=== PATIENT | male | born 1940 | race Caucasian/White ===

== ENCOUNTER 2016-10-30 22:13 | Emergency (ER) | payer MEDICARE ==
[2016-10-30] MEDS ORDERED: KETOROLAC 60 MG/2 ML VIAL IVP STA (22:32)
[2016-10-30] MEDS ORDERED: HYDROmorphone 1 MG/ML 1 ML SYRINGE IVP STA (22:33)
[2016-10-30] MEDS ORDERED: ONDANSETRON 4 MG/2 ML VIAL IVP STA (22:33)
--- NOTE | 2016-10-30 22:36 | ED ---
General Adult HPI - General Chief complaint: Abdominal Pain Stated complaint: Lower Abdominal Pain Time Seen by Provider: 10/30/16 22:20 Source: patient, RN notes reviewed Mode of arrival: wheelchair Limitations: no limitations - History of Present Illness Initial comments: This is a 76-year-old male presents to the emergency department complaining of left lower quadrant abdominal pain that started 2 hours ago. Patient states started suddenly. Patient states prior to that he was feeling fine. Patient states she was a little bit nauseous when it first started but he no longer is nauseated. Patient did not vomit. Patient has not had any diarrhea. Patient denies any radiation of the pain to his back or testicles. Patient denies any chest pain difficulty breathing or shortness of breath. Patient denies any recent fever or chills. Patient denies any dysuria hematuria urinary frequency. Patient denies any headache patient denies numbness weakness. - Related Data Home Medications Medication Instructions Recorded Confirmed Aspirin EC [Ecotrin Low Dose] 81 mg PO DAILY 10/30/16 10/30/16 Atorvastatin [Lipitor] 40 mg PO DAILY 10/30/16 10/30/16 Biotin 5 mg PO DAILY 10/30/16 10/30/16 Cholecalciferol [Vitamin D3] 400 unit PO DAILY 10/30/16 10/30/16 Fish Oil/Dha/Epa [Fish Oil 1,200 1 cap PO DAILY 10/30/16 10/30/16 mg Fish Oil] Isosorbide Mononitrate ER [Imdur] 60 mg PO DAILY 10/30/16 10/30/16 Metoprolol Succinate (ER) [Toprol 50 mg PO DAILY 10/30/16 10/30/16 Xl] Niacinamide [Niacin] 1,000 mg PO HS 10/30/16 10/30/16 Nitroglycerin Sl Tabs [Nitrostat] 0.4 mg SUBLINGUAL Q5M PRN 10/30/16 10/30/16 Omeprazole 20 mg PO DAILY 10/30/16 10/30/16 Previous Rx's Medication Instructions Recorded Hydrocodone/Acetaminophen [[place] 1 each PO Q4HR PRN #20 tab 10/30/16 5-325] Ketorolac [Toradol] 10 mg PO Q6HR #15 tab 10/30/16 Tamsulosin [Flomax] 0.4 mg PO DAILY #10 cap 10/31/16 Allergies Allergy/AdvReac Type Severity Reaction Status Date / Time No Known Allergies Allergy Verified 10/30/16 22:47 Review of Systems ROS Statement: Those systems with pertinent positive or pertinent negative responses have been documented in the HPI. ROS Other: All systems not noted in ROS Statement are negative. Past Medical History Past Medical History: Hyperlipidemia, Hypertension Additional Past Medical History / Comment(s): cardiac stents, AAA History of Any Multi-Drug Resistant Organisms: None Reported Past Surgical History: Heart Catheterization With Stent, Tonsillectomy Past Psychological History: No Psychological Hx Reported Smoking Status: Never smoker Past Alcohol Use History: None Reported Past Drug Use History: None Reported General Exam - General Exam Comments Initial Comments: GENERAL: Patient is well-developed and well-nourished. Patient is nontoxic and well- hydrated and is in moderate distress. ENT: Neck is soft and supple. No significant lymphadenopathy is noted. Oropharynx is clear. Moist mucous membranes. Neck has full range of motion without eliciting any pain. EYES: The sclera were anicteric and conjunctiva were pink and moist. Extraocular movements were intact and pupils were equal round and reactive to light. Eyelids were unremarkable. PULMONARY: Unlabored respirations. Good breath sounds bilaterally. No audible rales rhonchi or wheezing was noted. CARDIOVASCULAR: There is a regular rate and rhythm without any murmurs gallops or rubs. ABDOMEN: Mild left lower quadrant tenderness. No palpable organomegaly was noted. There is no palpable pulsatile mass. SKIN: Skin is clear with no lesions or rashes and otherwise unremarkable. NEUROLOGIC: Patient is alert and oriented x3. Cranial nerves II through XII are grossly intact. Motor and sensory are also intact. Normal speech, volume and content. Symmetrical smile. MUSCULOSKELETAL: Normal extremities with adequate strength and full range of motion. No lower extremity swelling or edema. No calf tenderness. LYMPHATICS: No significant lymphadenopathy is noted PSYCHIATRIC: Normal psychiatric evaluation. Limitations: no limitations Course Vital Signs 10/30/16 10/30/16 10/30/16 22:29 22:45 23:29 Temperature 97.1 F L 97.5 F L Pulse Rate 68 72 72 Respiratory 20 18 18 Rate Blood Pressure 202/79 159/72 131/59 O2 Sat by Pulse 96 93 L 93 L Oximetry Medical Decision Making - Medical Decision Making Computed tomography scan shows a 5 mm stone in the left proximal ureter. There is some hydronephrosis as well as hydroureter. - Lab Data Result diagrams: 10/30/16 22:40 10/30/16 22:40 Lab Results 10/30/16 10/30/16 10/30/16 Range/Units 22:40 22:40 23:30 WBC 5.5 (3.8-10.6) k/uL RBC 4.54 (4.30-5.90) m/uL Hgb 14.7 (13.0-17.5) gm/dL Hct 41.8 (39.0-53.0) % MCV 91.9 (80.0-100.0) fL MCH 32.4 (25.0-35.0) pg MCHC 35.2 (31.0-37.0) g/dL RDW 13.8 (11.5-15.5) % Plt Count 153 (150-450) k/uL Neutrophils % 47 % Lymphocytes % 38 % Monocytes % 6 % Eosinophils % 5 % Basophils % 1 % Neutrophils # 2.6 (1.3-7.7) k/uL Lymphocytes # 2.1 (1.0-4.8) k/uL Monocytes # 0.3 (0-1.0) k/uL Eosinophils # 0.3 (0-0.7) k/uL Basophils # 0.1 (0-0.2) k/uL Sodium 138 (137-145) mmol/L Potassium 3.8 (3.5-5.1) mmol/L Chloride 105 (98-107) mmol/L Carbon Dioxide 22 (22-30) mmol/L Anion Gap 11 mmol/L BUN 14 (9-20) mg/dL Creatinine 0.88 (0.66-1.25) mg/dL Est GFR (MDRD) Af Amer >60 (>60 ml/min/1.73 sqM) Est GFR (MDRD) Non-Af >60 (>60 ml/min/1.73 sqM) Glucose 155 H (74-99) mg/dL Calcium 9.4 (8.4-10.2) mg/dL Total Bilirubin 0.6 (0.2-1.3) mg/dL AST 51 (17-59) U/L ALT 55 (21-72) U/L Alkaline Phosphatase 64 (38-126) U/L Total Protein 7.6 (6.3-8.2) g/dL Albumin 4.0 (3.5-5.0) g/dL Amylase 60 (30-110) U/L Lipase 134 (23-300) U/L Urine Color Yellow Urine Appearance Clear (Clear) Urine pH 5.5 (5.0-8.0) Ur Specific Boon 1.019 (1.001-1.035) Urine Protein Negative (Negative) Urine Glucose (UA) Negative (Negative) Urine Ketones Negative (Negative) Urine Blood Large H (Negative) Urine Nitrite Negative (Negative) Urine Bilirubin Negative (Negative) Urine Urobilinogen 4.0 (<2.0) mg/dL Ur Leukocyte Esterase Negative (Negative) Urine RBC 143 H (0-5) /hpf Urine WBC 1 (0-5) /hpf Ur Squamous Epith Cells <1 (0-4) /hpf Urine Mucus Occasional H (None) /hpf Disposition Clinical Impression: Kidney stone Disposition: HOME SELF-CARE Condition: Good Instructions: Kidney Stones (ED) Additional Instructions: Patient should follow-up with urology. Prescriptions: Hydrocodone/Acetaminophen [[place] 5-325] 1 each PO Q4HR PRN #20 tab PRN Reason: Pain Ketorolac [Toradol] 10 mg PO Q6HR #15 tab Tamsulosin [Flomax] 0.4 mg PO DAILY #10 cap Referrals: Oswald Ashraf MD [Primary Care Provider] - 1-2 days Time of Disposition: 23:57
[2016-10-30 22:46] VITALS: PULSE 72; RESP 18
[2016-10-30 22:53] LABS: Basophils # (A) 0.1 k/uL (0-0.2); Basophils % (A) 1 %; CH 32.4; CHCM 35.4; Eosinophils # (A) 0.3 k/uL (0-0.7); Eosinophils % (A) 5 %; HCT 41.8 % (39.0-53.0); HDW 2.82; HGB 14.7 gm/dL (13.0-17.5); Luc # (Auto) 0.16; Luc % (Auto) 3; Lymphocytes # (A) 2.1 k/uL (1.0-4.8); Lymphocytes % (A) 38 %; MCH 32.4 pg (25.0-35.0); MCHC 35.2 g/dL (31.0-37.0); MCV 91.9 fL (80.0-100.0); Mean Platelet Volume 6.7; Monocytes # (A) 0.3 k/uL (0-1.0); Monocytes % (A) 6 %; Neutrophils # (A) 2.6 k/uL (1.3-7.7); Neutrophils % (A) 47 %; RBC 4.54 m/uL (4.30-5.90); RDW 13.8 % (11.5-15.5); WBC 5.5 k/uL (3.8-10.6); WBC (Perox) 5.76
--- NOTE | 2016-10-30 23:16 | CT ---
EXAMINATION TYPE: CT abdomen pelvis wo con DATE OF EXAM: 10/30/2016 11:00 PM COMPARISON: NONE HISTORY: left lower abd pain, r/o stones CT DLP: 1177 mGycm Automated exposure control for dose reduction was used. TECHNIQUE: Helical acquisition of images was performed from the lung bases through the pelvis. FINDINGS: There is patchy atelectasis at the lung bases. There is no definite pleural effusion. The liver shows no focal defect. Spleen and pancreas appear normal. Gallbladder shows multiple calcif ied gallstones near the gallbladder neck. Bile ducts are not dilated. There is no adrenal mass. Kidne ys have normal size. There is mild left-sided hydronephrosis and hydroureter. There is a 5 mm calculu s at the left ureterovesical junction. Bladder distends smoothly. There are multiple sigmoid divertic rohan. There is no sign of diverticulitis. There is atherosclerotic vascular calcification. There is a 4 cm fusiform aneurysm of the lower abdominal aorta. I see no intestinal wall thickening. There is no ascites. There is no retroperitoneal adenopathy. I see no bony destructive process. There are multip le right-sided renal calcifications that could be vascular.. IMPRESSION: THERE IS A SMALL CALCULUS OBSTRUCTING THE LEFT UPPER COLLECTING SYSTEM AT THE LEFT URETEROVESICAL BETTY CTION. CALCIFIED GALLSTONES. ARTHROSCOPIC VASCULAR CALCIFICATION. 4 CM ANEURYSM OF THE LOWER ABDOMINAL AORTA . SIGMOID DIVERTICULOSIS WITHOUT DIVERTICULITIS. PATCHY ATELECTASIS AT THE LUNG BASES.
--- NOTE | 2016-10-30 23:17 | XR ---
EXAMINATION TYPE: XR KUB DATE OF EXAM: 10/30/2016 11:00 PM COMPARISON: NONE HISTORY: Abdominal pain TECHNIQUE: 2 views FINDINGS: There is no sign of intestinal obstruction or pneumoperitoneum. Fecal pattern is normal. Th ere is patchy interstitial density at the lung bases. There are no pathologic calcifications over the kidneys. There is no sign of a mass. IMPRESSION: Nonacute abdomen. Fibrotic changes at the lung bases.
[2016-10-30 23:30] VITALS: BP 131/59; TEMP 97.5
[2016-10-30 23:30] LABS: ALT 55 U/L (21-72); AST 51 U/L (17-59); Alkaline Phosphatase 64 U/L (38-126); Amylase 60 U/L (30-110); Anion Gap 11 mmol/L; Blood Urea Nitrogen 14 mg/dL (9-20); Calcium 9.4 mg/dL (8.4-10.2); Carbon Dioxide 22 mmol/L (22-30); Chloride 105 mmol/L (98-107); Glucose 155 mg/dL (74-99); Non-African American GFR(MDRD) >60 (>60 ml/min/1.73 sqM); Potassium 3.8 mmol/L (3.5-5.1); Sodium 138 mmol/L (137-145); Total Bilirubin 0.6 mg/dL (0.2-1.3); Total Protein 7.6 g/dL (6.3-8.2)
[2016-10-30 23:44] LABS: Appearance,Urine Clear (Clear); Bilirubin,Urine Negative (Negative); Glucose,Urine (UA) Negative (Negative); Ketones,Urine Negative (Negative); Leukocyte Esterase,Urine Negative (Negative); Mucus,Urine Occasional /hpf; Nitrite,Urine Negative (Negative); PH, Urine 5.5 (5.0-8.0); Particle Count 4580; Protein,Urine Negative (Negative); RBC,Urine 143 /hpf (0-5); Specific Gravity,Urine 1.019 (1.001-1.035); Squamous Epithelial Cell,Urine <1 /hpf (0-4); UA Billing (MACRO vs. MICRO) MICRO; WBC,Urine 1 /hpf (0-5)
[2016-10-31] MEDS ORDERED: ETODOLAC 400 MG TAB PO STA (00:02)
[2016-10-31] MEDS ORDERED: HYDROcodone/APAP 5-325MG 1 EACH TAB PO STA (00:03)
== END 2016-10-31 00:10 | disposition home or self-care (01) ==
LOC: EC 22:13
DX: N20.0 Calculus of kidney (principal); R11.0 Nausea; I10 Essential (primary) hypertension; E78.5 Hyperlipidemia, unspecified; Z79.82 Long term (current) use of aspirin; Z79.899 Other long term (current) drug therapy
CPT/HCPCS: 99284; 96374; 96375 ×2; 36415; 80053; 82150; 83690; 85025; 81001; 74000; 74176; J2405; J1885; J1170

== ENCOUNTER → 2016-11-12 | Outpatient (CLI) | payer MEDICARE ==
--- NOTE | 2016-11-12 09:04 | US ---
EXAMINATION TYPE: US duplex aorta DATE OF EXAM: 11/12/2016 8:46 AM COMPARISON: CLINICAL HISTORY: Coronary Artery Disease I65.29, AAA I71.4. Known Distal AAA EXAM MEASUREMENTS: Limited visualization of proximal and mid Aorta. Abdominal Aorta: Proximal: 2.2 x 2.7 cm Mid: 1.5 x 2.1 cm Distal: 3.5 x 3.8 x 6.4 cm Bifurcation: Right- 1.2 x 0.9 cm Left- 1.2 x 1.0 cm Distal AAA = 3.5 x 3.8 x 6.4 cm IMPRESSION: 1. 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
== END | disposition home or self-care (01) ==
LOC: RADUSWWP 08:13
PROVIDERS: ATTEND Family Medicine
DX: I71.4 Abdominal aortic aneurysm, without rupture (principal); I74.09 Other arterial embolism and thrombosis of abdominal aorta; I25.10 Atherosclerotic heart disease of native coronary artery without angina pectoris
CPT/HCPCS: 93979

== ENCOUNTER → 2016-12-10 | Outpatient (CLI) | payer MEDICARE ==
--- NOTE | 2016-12-10 12:30 | ECHOS ---
DATE OF SERVICE: 12/10/2016 AGE: 76Y SEX: M HT: 72" WT: 255 lbs. Protocol Ricardo: X Others: Stress Echo Stage: 2 Dur. of Exercise: 5:15 *Heart Rate Blood Pressure *Rest: 76 Rest: 145/45 * *Max. Achieved: 123 Maximum BP: 186/55 85% PMHR: 124 100% PMHR: 146 *METS: INDICATIONS: Coronary artery disease. MEDICATIONS: Metoprolol, aspirin, isosorbide, atorvastatin, levothyroxine, Niacin, Nitro. STRESS DATA: Pretesting physical examination showed the heart rate of 76, pressure is 145/45 mmHg. Baseline EKG showed sinus rhythm. The patient exercised on the treadmill according to Ricardo protocol for a total of 5 minutes. He achieved a max heart rate of 123, which is about 84% of maximum predicted heart rate. Maximum blood pressure was 186/55 mmHg. Clinically, the patient did not have any symptoms of chest pain or discomfort during the testing or in the recovery. The EKG did not show any significant ST or T-wave abnormalities consistent with ischemia. ECHOCARDIOGRAM IMAGES: On echocardiogram images from parasternal long axis view, parasternal short axis view, apical 4 chambers and apical 2 chamber view were obtained as the baseline images, ( ) heart rate, as well as on recovery. The echocardiogram images showed good augmentation in the left ventricular systolic function without any evidence of wall motion abnormalities consistent with ischemia. CONCLUSION: 1. Average exercise capacity. 2. Normal EKG in response to exercise. 3. Normal echocardiogram in response to exercise as well. 4. Essentially normal stress echocardiogram for this patient.
== END | disposition home or self-care (01) ==
LOC: RADNMMAIN 09:04
PROVIDERS: ATTEND Family Medicine
DX: I65.29 Occlusion and stenosis of unspecified carotid artery (principal); I71.4 Abdominal aortic aneurysm, without rupture
CPT/HCPCS: 93017; C8928; Q9957; 93350

== ENCOUNTER 2017-11-29 11:26 | Day surgery (SDC) | payer MEDICARE ==
[2017-11-25 13:19] VITALS: BMI 35.9
[~2017-11-29 11:26] MED LIST: LACTATED RINGERS 1,000 ML IV SCH; LIDOCAINE 1% 20 ML VIAL (10MG/ML) FOR IV START INTRADERMA PRN
[2017-11-29 12:34] VITALS: TEMP 98.1
[2017-11-29] MEDS ORDERED: LIDOCAINE 1% INJ 10MG/ML (20 ML MDV) ONE (13:22)
[2017-11-29] MEDS ORDERED: PROPOFOL 10 MG/ML 20 ML VIAL IV ONE (13:22)
[2017-11-29] MEDS ORDERED: IV FLUID CONTINUATION 1,000 ML IV ONE (13:50)
--- NOTE | 2017-11-29 13:57 | P.PCN ---
Date of Procedure: 11/29/17 Procedure(s) Performed: Procedure: Colonoscopy and biopsy and injection of Spot to localize a broadly attached distal sigmoid polyp. Preoperative diagnosis: Positive cologuard. Postoperative diagnosis: 1. Broadly advanced distal sigmoid polyp biopsy and spotted using spot injection. 2. Diffuse diverticulosis with no evidence of acute diverticulitis or strictures. Preparation: HalfLytely prep. Sedation: Was provided by anesthesia. Brief clinical history: The patient is a 77-year-old male who is scheduled for this of examination because of positive cologuard. The patient has no abdominal complaints, overt bleeding or anemia. His prior colonoscopy was more than 11 years ago. Procedure: With the patient on his left lateral decubitus position and after informed consent and adequate sedation, the perianal area was inspected and it did not show any fissures or fistulas. There were no masses felt on digital rectal examination. The Olympus CFQ 160L video colonoscope was then inserted in the rectum in the usual fashion and advanced to the cecum. There was a broadly at times polyp in the distal sigmoid that measured around 4 cm in greatest dimension that was biopsied. A total of 2 mL of spot was injected to localize it. No attempt was made today to snare it because of its size and broad attachment. There were multiple diverticular orifices noted mostly on the left side with several on the right side that were fewer and smaller in size. There was no evidence of acute diverticulitis or strictures. No other polyps or tumors were seen. I retroflexed the endoscope in the rectum before the endoscope was withdrawn. The patient tolerated the procedure well. Plan: I summarized the findings to the patient. Will await biopsy results and make further recommendations based on his course and biopsy results. We will keep you updated on his progress.
[2017-11-29 14:10] VITALS: BP 122/78; PULSE 68; RESP 18
== END 2017-11-29 14:35 | disposition home or self-care (01) ==
LOC: ORWHC2ENDO 11:26
DX: D12.5 Benign neoplasm of sigmoid colon (principal); K57.30 Diverticulosis of large intestine without perforation or abscess without bleeding; I10 Essential (primary) hypertension; E78.5 Hyperlipidemia, unspecified; I25.10 Atherosclerotic heart disease of native coronary artery without angina pectoris; E07.9 Disorder of thyroid, unspecified; Z79.82 Long term (current) use of aspirin; I71.4 Abdominal aortic aneurysm, without rupture; Z79.899 Other long term (current) drug therapy; Z87.442 Personal history of urinary calculi
CPT/HCPCS: 88305; 45380; 45381; J2001; J2704

== ENCOUNTER → 2017-12-24 | Outpatient (CLI) | payer MEDICARE ==
[2017-12-24 14:00] LABS: Appearance,Urine Clear (Clear); Bilirubin,Urine Negative (Negative); Blood,Urine Negative (Negative); Color,Urine Yellow; Glucose,Urine (UA) Negative (Negative); Ketones,Urine Negative (Negative); Leukocyte Esterase,Urine Negative (Negative); Nitrite,Urine Negative (Negative); Protein,Urine Trace (Negative); Specific Gravity,Urine 1.022 (1.001-1.035)
[2017-12-24 14:01] LABS: HCT 40.1 % (39.0-53.0); HGB 13.9 gm/dL (13.0-17.5); MCH 31.3 pg (25.0-35.0); MCHC 34.6 g/dL (31.0-37.0); MCV 90.5 fL (80.0-100.0); Mean Platelet Volume 7.1; Platelet Count 179 k/uL (150-450); RBC 4.43 m/uL (4.30-5.90); RDW 13.6 % (11.5-15.5); WBC 5.4 k/uL (3.8-10.6)
[2017-12-24 14:10] LABS: Partial Thromboplastin Time 23.8 sec (22.0-30.0); Prothrombin Time 9.9 sec (9.0-12.0)
[2017-12-24 14:13] LABS: ALT 43 U/L (21-72); AST 29 U/L (17-59); Alkaline Phosphatase 61 U/L (38-126); Anion Gap 10 mmol/L; Blood Urea Nitrogen 15 mg/dL (9-20); Carbon Dioxide 28 mmol/L (22-30); Chloride 107 mmol/L (98-107); Glucose 74 mg/dL (74-99); Potassium 4.3 mmol/L (3.5-5.1); Sodium 145 mmol/L (137-145); Total Bilirubin 0.4 mg/dL (0.2-1.3); Total Protein 6.9 g/dL (6.3-8.2)
== END | disposition home or self-care (01) ==
LOC: LABPAT 13:29
PROVIDERS: ATTEND Orthopaedic Surgery Sports Medicine
DX: Z01.812 Encounter for preprocedural laboratory examination (principal)
CPT/HCPCS: 36415; 80053; 81003; 85027; 85610; 85730; 87070

== ENCOUNTER 2018-01-13 09:19 | Inpatient (IN) | payer MEDICARE ==
[2017-12-30 15:25] VITALS: BMI 36.9
[~2018-01-13 09:19] MED LIST changes: +ACETAMINOPHEN TAB 500 MG TAB PO ONE; +DEXAMETHASONE SOD PHOSPHATE 10 MG/ML 1 ML VIAL IV ONE; +HYDROmorphone 0.5 MG/0.5 ML SYRINGE IVP PRN; -LIDOCAINE 1% 20 ML VIAL (10MG/ML) FOR IV START INTRADERMA PRN; +ONDANSETRON 4 MG/2 ML VIAL IVP ONE; +ROPIVACAINE 246.25 MG, EPINEPHrine 0.5 MG, KETOROLAC 30 MG, cloNIDine HCL/PF 80 MCG, WA... MISCELLANE ONE; +TRANEXAMIC ACID 1,000 MG in SODIUM CHLORIDE 0.9% 50 ML IVPB ONE
[2018-01-13] MEDS ORDERED: LIDOCAINE 1% 20 ML VIAL (10MG/ML) FOR IV START INTRADERMA ONE (09:59)
[2018-01-13] MEDS ORDERED: SODIUM CHLORIDE 0.9% 100 ML BAG ONE (11:19)
[2018-01-13] MEDS ORDERED: diphenhydrAMINE 50 MG/ML 1 ML VIAL ONE (11:19)
[2018-01-13] MEDS ORDERED: TRANEXAMIC ACID 1,000 MG/10 ML VIAL ONE (11:19)
[2018-01-13] MEDS ORDERED: fentaNYL (PF) 50 MCG/ML 2 ML AMP ONE (11:19)
[2018-01-13] MEDS ORDERED: KETAMINE 10 MG/ML 20 ML VIAL ONE (11:19)
[2018-01-13] MEDS ORDERED: PROPOFOL 10 MG/ML 20 ML VIAL IV ONE (11:19)
[2018-01-13] MEDS ORDERED: ePHEDrine SULFATE/0.9% NACL/PF 50 MG/5 ML SYRINGE IV ONE (11:19)
[2018-01-13] MEDS ORDERED: MIDAZOLAM 2 MG/2 ML VIAL ONE (11:19)
[2018-01-13] MEDS ORDERED: HYDROmorphone 0.5 MG/0.5 ML SYRINGE IVP PRN ×4 (11:44→13:44)
[2018-01-13] MEDS ORDERED: diphenhydrAMINE 50 MG/ML 1 ML VIAL IVP PRN (11:44)
[2018-01-13] MEDS ORDERED: NALOXONE 0.4 MG/ML 1 ML VIAL IV PRN ×2 (11:44→13:44)
[2018-01-13] MEDS ORDERED: NALBUPHINE 10 MG/ML VIAL (10ML MDV) IV PRN (11:44)
[2018-01-13] MEDS ORDERED: ceFAZolin 3,000 MG in SODIUM CHLORIDE 0.9% IRRIGATIO 3,000 ML IRRIGATION ONE (12:00)
[2018-01-13] MEDS ORDERED: MAGNESIUM HYDROXIDE 2,400 MG/10 ML CUP PO PRN (13:44)
[2018-01-13] MEDS ORDERED: ACETAMINOPHEN TAB 325 MG TAB PO PRN (13:44)
[2018-01-13] MEDS ORDERED: NA PHOS,M-B/NA PHOS,DI-BA 133 ML ENEMA RECTAL PRN (13:44)
[2018-01-13] MEDS ORDERED: DIAZEPAM 5 MG TAB PO PRN (13:44)
[2018-01-13] MEDS ORDERED: traMADol 50 MG TAB PO PRN (13:44)
[2018-01-13] MEDS ORDERED: hydrOXYzine PAMOATE 25 MG CAP PO PRN (13:44)
[2018-01-13] MEDS ORDERED: HYDROcodone/APAP 7.5-325MG 1 EACH TAB PO PRN ×2 (13:44)
[2018-01-13] MEDS ORDERED: TEMAZEPAM 15 MG CAP PO PRN (13:44)
[2018-01-13] MEDS ORDERED: BISACODYL 10 MG SUPP RECTAL PRN (13:44)
[2018-01-13] MEDS ORDERED: ONDANSETRON 4 MG/2 ML VIAL IVP PRN (13:44)
[2018-01-13] MEDS: LACTATED RINGERS 1,000 ML IV SCH ×3 (14:05→23:21)
--- NOTE | 2018-01-13 14:08 | XR ---
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 TECHNIQUE: Portable AP and crosstable lateral views of the left knee are obtained immediately postop eratively. COMPARISON: None FINDINGS: Metallic hardware from total left knee arthroplasty is seen and appears satisfactory in al ignment and position. There is evidence of recent surgery with diffuse subcutaneous gas and soft tis agueda swelling noted. IMPRESSION: METALLIC HARDWARE FROM TOTAL LEFT KNEE ARTHROPLASTY IS SATISFACTORY IN ALIGNMENT.
--- NOTE | 2018-01-13 14:41 | OP ---
OPERATIVE REPORT DATE OF PROCEDURE: 01/13/2018. SURGEON: García Laboy MD. SCRUM COACH: PARKER Storey. PREOPERATIVE DIAGNOSIS: Left knee osteoarthrosis. POSTOPERATIVE DIAGNOSIS: Left knee osteoarthrosis. OPERATION: Left total knee arthroplasty. ANESTHESIA: Spinal with sedation. ESTIMATED BLOOD LOSS: 100 mL. TOURNIQUET TIME: 60 minutes at 250 mmHg. COMPLICATIONS: None apparent. DRAINS: None. DISPOSITION: Postanesthesia care unit. INDICATIONS: Teto is a 77-year-old male with longstanding history of left knee pain. History and physical examination are consist with advanced left knee osteoarthrosis. He has been through significant nonoperative management up to this point. Further treatment options were discussed and he has decided to go forward with a left total knee arthroplasty. The risks of the procedure were discussed with him in detail. These risks include, but are not limited to risk of infection, nerve damage, bleeding, pain and risk of deep vein thrombosis which could lead to fatal pulmonary embolism. There is also risk of loosening of the implant which could require revision operation. The patient understands these risks. All of his questions with regards to the risks were answered to his satisfaction. Appropriate informed consent was obtained. The patient identified in preoperative holding area. Surgical site was marked by both the patient and myself. He was given 3 g of Ancef IV for prophylactic purposes. He was then transferred to the operative suite, where he was placed supine on the operative table. Spinal anesthetic was then administered and dosed per the anesthesia without apparent complication. Examination under anesthesia was then performed. The patient was 5 degrees shy of full extension. He had 100 degrees of flexion in the medial collateral ligament. Lateral collateral ligament and posterior cruciate ligaments were stable. Tourniquet was then placed high on the left upper thigh well-padded in preparation for surgery. The patient's left lower extremity was then prepped and draped in usual sterile fashion. Standard surgical pause undertaken to ensure that we were operating the correct site and that appropriate preoperative antibiotics were given. All staff in the room in agreement and we proceeded. The outlines of the patella were marked surgical pen. A planned 12 cm vertical incision centered over the patella was marked surgical pen. Leg was then exsanguinated with an Esmarch dressing. The knee was then flexed and tourniquet was inflated to 250 mmHg. The total tourniquet time for the procedure was 60 minutes. Incision was then made with a 10 blade scalpel. Dissection carried down sharply to the overlying fascia. Great care was taken to minimize the skin flaps. The knee was then exposed using a standard medial parapatellar approach. A small cuff of quadriceps tendon was then left for suturing. He was in a bit of valgus preoperatively. A very minimal medial release was then made. This was done just to allow for placement of the retractors. The medial meniscus was then excised as well. The lateral meniscus was also released anteriorly. The leg was then externally rotated. The patella was everted and the knee was flexed. The retractors then placed to protect the collateral ligaments. I then proceeded to remove the infrapatellar fat pad. This was excised sharply tangentially with with fibers of the patellar tendon. I then proceeded to remove peripheral osteophytes. This was done with a rongeur. I then proceeded with the distal femoral resection. He did he did have a flexion contracture. Plan to take an extra 2 mm from the distal femur. The femoral canal was then entered in the midline of the femur approximately 10 mm anterior to the origin of the posterior cruciate ligament. The levon was then advanced down the center of the femur and placed intramedullary. Based on preoperative radiographs, the angle between the anatomic and mechanical axis of the femur was approximately 4-5 degrees. The valgus angle distal femoral cutting guide was then set at 4 degrees for the left knee. The distal femoral cutting guide was then advanced over the intramedullary levon. This was seated firmly against the femur. I then as mentioned planned to take the left 11 mm off the distal femur. The cutting block was then secured onto the femur with pins. The jig was then removed. The distal femoral cut was made through the slot of the block. The pins then removed. The distal femoral cutting block was removed. The accuracy of the distal femoral cuts was checked with 2 flat bars. I then proceed with femoral sizing. The posterior referencing sizing guide was held firmly against the resected distal surface of the femur. Posterior condyles were resting on the posterior plane of the guide. The sizing stylus was then placed onto the anterior femur. The size was measured as a size 10. I then assessed for femoral rotation. Plan was for 3 degrees of external rotation. Three degrees of external rotation was placed onto the jig. These holes were then marked. I then confirmed the rotation by three separate methods. This is done using epicondylar axis as well as Whitesides line and posterior referencing. It was deemed that the external rotation was proper. I then went forward placing the femoral cutting block. This was placed over the previously placed pin holes. The Dale wing was then placed on the anterior slots to ensure that we would not notch the anterior femur with the anterior femoral cut. I then proceed with the anterior femoral cut. This was flush with the anterior cortex of the femur. Posterior cuts were then made followed by the anterior chamfer cut, then the posterior chamfer cut. The cutting block was then removed. Throughout the resection, the collateral ligaments were protected with retractors. I then placed a trial size 10 femur. It fit very nice medial-lateral and fit flush with the distal end of the femur. The drill holes were then made. I then proceeded with the tibial cut. I planned for cruciate retaining knee. The guide was placed and set for varus valgus and for slope. The height was set for approximate 2 mm resection from the lateral tibial plateau which was the lower side. I was happy with the alignment amount of resection. The cutting block was then pinned to the proximal tibia. The alignment levon was removed. The proximal tibia was resected with a reciprocating saw. Again this was done with retractors protecting the collateral ligaments as well as the posterior cruciate ligament. I then proceeded to evaluate the flexion extension gaps where a 10 mm block was then placed. The flexion-extension gaps were equal. I then proceeded with resection of posterior osteophytes. Very minimal posterior osteophytes. This was done with a curved osteotome. This resected the posterior osteophytes and posterior capsule stripping was also done off the posterior aspect of the femur. The osteophytes were removed. I then proceeded with resection of patella. The thickness of patella was measured using the caliper. The thickness was 25 mm. The thickness of the anticipated patellar dome was then taken into account. Resection was then performed and confirmed to be equal in 4 quadrants using a caliper. Approximately 14 mm of bone remained after the resection. A 35 x 9 mm standard patellar trial was then placed. The holes were drilled. The trial was then placed. I then proceeded with sizing the tibial plate. A size G tibial plate fit very nicely. I then placed the trial femur the tibial tray and patellar button. A 10 mm trial tibial insert was also placed. The components fit very nicely. He had full extension and flexion. The extension and flexion gaps were equal and stable to both varus and valgus stress. The patella tracked appropriately. The tibial tray rotation was marked with a Bovie. This was externally rotated properly. I then proceed with tibial preparation. I first drilled the femoral holes and removed femoral component. The tibial tray was then set for proper external rotation as well as mediolateral placement onto the tibia. It was then pinned into place. I then proceed with punching the keel. I then decided to proceed with cementing of all of our components. The knee was thoroughly irrigated with sterile saline solution via pulse lavage. The lateral geniculate artery was identified and cauterized. All blood was removed from the bone of the tibia femur and patella with pulse lavage. I then proceed with cementing. Two packs of antibiotic bone cement prepared on the back table by the regional vice president surgical sales. I then proceed with cementing the tibia first. The cement was impacted in the keel as well as deeply seated in the bone. A second coat of cement was then placed. The tibia was then impacted into place. Excess cement was removed with Tino's and Joker's. I then proceed with cementing the femoral component. The femoral component was also cemented using standard technique. Excess cement was removed. A 10 mm trial insert was placed into the knee. It was brought into full extension with a constant axial load placed until the cement had hardened. The patellar component was then cemented. This was held firmly with a compressive device until the cement had dried. When the cement had dried, the knee was taken out of extension. All excess cement was removed from around the prosthesis. I then trialed the knee with a 10 mm insert. The flexion-extension gaps were appropriate. The knee was stable. It came into full extension. I decided to go for the 10 mm cross-linked cruciate-retaining tibial insert. Polyethylene was then placed on the tibial tray and locked into place. The knee was then reduced. The knee was again further irrigated with sterile saline solution with antibiotic added. The tourniquet was then deflated. Total tourniquet time for the procedure was 60 minutes at 250 mmHg. Final components were Edu Persona size 10 cruciate-retaining femoral component, a size G tibial tray, a 10 mm medial congruent cruciate-retaining polyethylene insert and a 35 x 9 mm patella. I then proceeded with closure. Again, the knee was thoroughly irrigated. The quadriceps tendon and the medial retinaculum were reapproximated with #2 Ethibond suture. The extensor mechanism was then closed with a running #2 Quill suture. Subcutaneous tissues were then closed with 2-0 Vicryl interrupted suture. The skin was closed with a running 3-0 Quill suture. Dermabond was applied to the incision. Sterile compressive dressings were then applied. All sponge and needle counts were deemed correct prior to closure. The patient tolerated the procedure without apparent complication. He is transferred recovery room in stable condition. MMODL / IJN: [id number] /
[2018-01-13] MEDS ORDERED: WARFARIN 5 MG TAB PO ONE (18:00)
[2018-01-13] MEDS ORDERED: SENNOSIDES-DOCUSATE SODIUM 1 EACH TAB PO SCH (21:00)
[2018-01-13] MEDS ORDERED: NITROGLYCERIN SL TABS 0.4 MG TAB SUBLINGUAL PRN (22:11)
--- NOTE | 2018-01-13 22:13 | P.CONS ---
History of Present Illness - Reason for Consult Consult date: 01/13/18 Medical management of hypertension and other medical problems - Chief Complaint Elective left total knee arthroplasty - History of Present Illness Patient is a 77-year-old male with a known history of coronary artery disease and history of stents 6, hypertension, hyperlipidemia and hypothyroidism and also history of abdominal aortic aneurysm and is being closely followed was admitted to the hospital for left total knee arthroplasty. Patient was also getting intra-articular steroid injections and failed conservative measures. Patient tolerated the procedure very well. Currently patient is still drowsy from anesthesia. Otherwise is able to answer appropriately. No complaints of chest pain or shortness of breath. No headache or dizziness or lightheadedness. No fever no chills. Review of Systems Constitutional: Patient denies any fever or chills . No generalized weakness or weight loss. Abdomen: Patient denied nausea vomiting and diarrhea and abdominal pain. Cardiovascular: Patient denies any chest pain or short of breath no palpitations. Respiratory: patient denied any cough is from production. No shortness of breath Neurologic: Patient denied any numbness or tingling headache. Musculoskeletal: Patient denies any complaints of joint swelling or deformity. Skin: Negative Psychiatric: Negative Endocrine: No heat or cold intolerance. No recent weight gain. Genitourinary: No dysuria or hematuria. All other 14 point ROS negative except the above Past Medical History Past Medical History: Coronary Artery Disease (CAD), Hyperlipidemia, Hypertension, Thyroid Disorder Additional Past Medical History / Comment(s): positive cologaurd, cardiac stents , AAA (states Dr is watching), hx kidney stones History of Any Multi-Drug Resistant Organisms: None Reported Past Surgical History: Heart Catheterization With Stent, Tonsillectomy Additional Past Surgical History / Comment(s): 6 stents, charity cataracts Past Anesthesia/Blood Transfusion Reactions: No Reported Reaction Date of Last Stent Placement:: unknown Smoking Status: Never smoker - Past Family History Mother Family Medical History: No Reported History Medications and Allergies Home Medications Medication Instructions Recorded Confirmed Type Aspirin EC [Ecotrin Low Dose] 81 mg PO HS 10/30/16 01/13/18 History Atorvastatin [Lipitor] 40 mg PO DAILY 10/30/16 01/13/18 History Cholecalciferol [Vitamin D3] 2,000 unit PO DAILY 10/30/16 01/13/18 History Fish Oil/Dha/Epa [Fish Oil 1,200 1 cap PO DAILY 10/30/16 01/13/18 History mg Fish Oil] Isosorbide Mononitrate ER [Imdur] 60 mg PO QAM 10/30/16 01/13/18 History Metoprolol Succinate (ER) [Toprol 50 mg PO QAM 10/30/16 01/13/18 History Xl] Nitroglycerin Sl Tabs [Nitrostat] 0.4 mg SUBLINGUAL Q5M PRN 10/30/16 01/13/18 History Omeprazole 20 mg PO HS 10/30/16 01/13/18 History Niacin (Inositol Niacinate) [No 1,000 mg PO HS 11/25/17 01/13/18 History Flush Niacin 400 mg Cap] Levothyroxine Sodium [Synthroid] 50 mcg PO DAILY 01/13/18 01/13/18 History Warfarin [Coumadin] 3 mg PO ONCE 01/13/18 01/13/18 History Allergies Allergy/AdvReac Type Severity Reaction Status Date / Time No Known Allergies Allergy Verified 01/13/18 14:04 Physical Exam Vitals: Vital Signs Temp Pulse Resp BP Pulse Ox 01/13/18 14:31 70 16 131/63 95 01/13/18 14:15 73 16 129/64 94 L 01/13/18 14:02 74 16 129/64 95 01/13/18 13:46 97.0 F L 71 18 118/57 94 L 01/13/18 09:55 98 F 63 16 197/92 96 Intake and Output 01/12/18 01/13/18 01/13/18 22:59 06:59 14:59 Intake Total 1101 Output Total 100 Balance 1001 Intake: IV 1101 Output: Estimated Blood Loss 100 PHYSICAL EXAMINATION: Patient is lying in the bed comfortably, no acute distress, awake alert and oriented.. HEENT: Normocephalic. Neck is supple. Pupils reactive. Nostrils clear. Oral cavity is moist. Ears reveal no drainage. Neck reveals no JVD, carotid bruits, or thyromegaly. CHEST EXAMINATION: Trachea is central. Symmetrical expansion. Bibasilar diminished air entry. Lung wright clear to auscultation and percussion. CARDIAC: Normal S1, S2 with no gallops. No murmurs ABDOMEN: Soft. Bowel sounds normal. No organomegaly. No abdominal bruits. Extremities: reveal no edema. No clubbing or cyanosis Neurologically awake, alert, oriented x3 with well-coordinated movements. No focal deficits noted Skin: No rash or skin lesions. Psychiatric: Cooperative. Nonsuicidal Musculoskeletal: No joint swelling or deformity. Left knee surgical site intact.. Assessment and Plan Assessment: Status post left total knee arthroplasty on 01/13/2018 due to severe ostioarthritis Hypertension controlled Hyperlipidemia Hypothyroidism Coronary artery disease with history of stents 6 Abdominal aortic aneurysm. On close follow-up History of renal stones Morbid obesity with BMI 37 DVT prophylaxis Plan: Patient will be continued on pain management and bowel regimen. Encourage incentive spirometry and ambulation. DVT prophylaxis. Continue with home medications and restart blood pressure medications as tolerated. follow up CBC and BMP tomorrow a.m. We'll continue to follow and further recommendations based on the clinical course. Thank you for your consult Time with Patient: Greater than 30
[2018-01-14] MEDS ORDERED: CALCIUM CARBONATE 500 MG CHEWABLE PO PRN (00:37)
[2018-01-14] MEDS ORDERED: LEVOTHYROXINE 50 MCG TAB PO SCH (06:30)
[2018-01-14 06:42] LABS: Basophils % (A) 0 %; Eosinophils % (A) 0 %; HCT 37.1 % (39.0-53.0); HGB 12.7 gm/dL (13.0-17.5); Lymphocytes # (A) 1.1 k/uL (1.0-4.8); Lymphocytes % (A) 11 %; MCH 31.3 pg (25.0-35.0); MCHC 34.3 g/dL (31.0-37.0); MCV 91.2 fL (80.0-100.0); Mean Platelet Volume 6.7; Monocytes # (A) 0.8 k/uL (0-1.0); Monocytes % (A) 8 %; Neutrophils % (A) 79 %; Platelet Count 181 k/uL (150-450); RBC 4.07 m/uL (4.30-5.90); RDW 13.6 % (11.5-15.5); WBC 10.1 k/uL (3.8-10.6)
--- NOTE | 2018-01-14 08:24 | P.PN ---
Progress Note - Text Date: 01/14/2018 Time: 07:07 The patient is status post, total left knee arthroplasty Vital signs stable VAS: 0-10 Patient has no complaints of pain. The patient had no complaints of nausea vomiting or headache. Pain meds to be managed by service.
[2018-01-14] MEDS ORDERED: ATORVASTATIN 40 MG TAB PO SCH (09:00)
[2018-01-14] MEDS ORDERED: NON-FORMULARY DRUG (Fish Oil/Dha/Epa [Fish Oil 1,200 Mg Fish Oil] 1 CAP) PO SCH (09:00)
[2018-01-14] MEDS ORDERED: METOPROLOL SUCCINATE (ER) 50 MG TAB.ER.24H PO SCH (09:00)
[2018-01-14] MEDS ORDERED: ISOSORBIDE MONONITRATE ER 60 MG TAB.ER.24H PO SCH (09:00)
[2018-01-14] MEDS ORDERED: CHOLECALCIFEROL 1,000 UNIT TAB PO SCH (09:00)
[2018-01-14 09:34] LABS: INR 1.2 (<1.2); Prothrombin Time 11.2 sec (9.0-12.0)
[2018-01-14 10:21] VITALS: BP 142/75; PULSE 77; RESP 16; TEMP 98.1
[2018-01-14] MEDS: LACTATED RINGERS 1,000 ML IV SCH (10:41)
[2018-01-14] MEDS ORDERED: MULTIVITAMINS, THERA 1 EACH TAB PO SCH (12:00)
--- NOTE | 2018-01-14 12:20 | P.DS ---
Providers Date of admission: 01/13/18 09:19 Expected date of discharge: 01/14/18 Attending physician: García Laboy Consults: 01/13/18 13:44 Consult Physician Routine Consulting Provider: Oswald Ashraf Consult Reason/Comments: post op medical management Do you want consulting provider notified?: Yes Primary care physician: Oswald Ashraf - Discharge Diagnosis(es) (1) Osteoarthritis of left knee Patient was admitted to the OR on 01/13/2018 to undergo a left total Knee arthroplasty. Her had failed conservative measures as an outpatient and desired to proceed with elective surgery after given informed consent. He underwent the above procedure which he tolerated well without complication. Postoperative hospital course has remained without complication. On day of discharge he is afebrile, vital signs stable, labs within acceptable ranges, tolerating by mouth meds and diet, voiding without difficulty, positive flatus, denies abdominal pain or calf pain, pain is controlled on oral pain medication and has no new complaints. Wound is benign, neurovascular status is intact, calf is soft and nontender, abdomen soft and nontender. Review of systems is negative for numbness, tingling, fever, chills, chest pain, shortness breath, nausea, vomiting, dizziness, headaches, slurred speech or other. Current Visit: Yes Status: Acute Priority: Medium Procedures: Left TKA Patient Condition at Discharge: Good Plan - Discharge Summary Discharge Rx Participant: No New Discharge Prescriptions: New Docusate [Colace] 100 mg PO BID #60 capsule HYDROcodone/APAP 7.5-325MG [Sidon 7.5-325] 1 - 2 tab PO Q6HR PRN #60 tab PRN Reason: Pain No Action Omeprazole 20 mg PO HS Nitroglycerin Sl Tabs [Nitrostat] 0.4 mg SUBLINGUAL Q5M PRN PRN Reason: Chest Pain Metoprolol Succinate (ER) [Toprol Xl] 50 mg PO QAM Isosorbide Mononitrate ER [Imdur] 60 mg PO QAM Fish Oil/Dha/Epa [Fish Oil 1,200 mg Fish Oil] 1 cap PO DAILY Cholecalciferol [Vitamin D3] 2,000 unit PO DAILY Atorvastatin [Lipitor] 40 mg PO DAILY Aspirin EC [Ecotrin Low Dose] 81 mg PO HS Niacin (Inositol Niacinate) [No Flush Niacin 400 mg Cap] 1,000 mg PO HS Levothyroxine Sodium [Synthroid] 50 mcg PO DAILY Warfarin [Coumadin] 3 mg PO ONCE Discharge Medication List Aspirin EC [Ecotrin Low Dose] 81 mg PO HS 10/30/16 [History] Atorvastatin [Lipitor] 40 mg PO DAILY 10/30/16 [History] Cholecalciferol [Vitamin D3] 2,000 unit PO DAILY 10/30/16 [History] Fish Oil/Dha/Epa [Fish Oil 1,200 mg Fish Oil] 1 cap PO DAILY 10/30/16 [History] Isosorbide Mononitrate ER [Imdur] 60 mg PO QAM 10/30/16 [History] Metoprolol Succinate (ER) [Toprol Xl] 50 mg PO QAM 10/30/16 [History] Nitroglycerin Sl Tabs [Nitrostat] 0.4 mg SUBLINGUAL Q5M PRN 10/30/16 [History] Omeprazole 20 mg PO HS 10/30/16 [History] Niacin (Inositol Niacinate) [No Flush Niacin 400 mg Cap] 1,000 mg PO HS [History] Levothyroxine Sodium [Synthroid] 50 mcg PO DAILY 01/13/18 [History] Warfarin [Coumadin] 3 mg PO ONCE 01/13/18 [History] Docusate [Colace] 100 mg PO BID #60 capsule 01/14/18 [Rx] HYDROcodone/APAP 7.5-325MG [Sidon 7.5-325] 1 - 2 tab PO Q6HR PRN #60 tab [Rx] Follow up Appointment(s)/Referral(s): [facility], [NON-STAFF] - García Laboy MD [STAFF PHYSICIAN] - 01/24/18 1:00 pm Ambulatory/Diagnostic Orders: Prothrombin Time INR [LAB.AMB] Location: None Selected Activity/Diet/Wound Care/Special Instructions: [facility] - [phone] - will deliver to bedside before discharge keep wound clean and dry take meds as directed f/u with Dr. Laboy in office Weight Bear As Tolerated may shower in 3 days if no bleeding Discharge Disposition: HOME WITH HOME HEALTH SERVICES
[2018-01-14] MEDS ORDERED: WARFARIN 5 MG TAB PO ONE (18:00)
[2018-01-14] MEDS ORDERED: NIACIN TR 500 MG CAPSULE.ER PO SCH (21:00)
[2018-01-14] MEDS ORDERED: PANTOPRAZOLE 40 MG TABLET PO SCH (21:00)
--- NOTE | 2018-01-14 23:04 | P.PN ---
Subjective Progress Note Date: 01/14/18 Principal diagnosis: Left total knee arthroplasty in Patient is a 77-year-old male with a known history of coronary artery disease and history of stents 6, hypertension, hyperlipidemia and hypothyroidism and also history of abdominal aortic aneurysm and is being closely followed was admitted to the hospital for left total knee arthroplasty. Patient was also getting intra-articular steroid injections and failed conservative measures. Patient tolerated the procedure very well. Currently patient is still drowsy from anesthesia. Otherwise is able to answer appropriately. No complaints of chest pain or shortness of breath. No headache or dizziness or lightheadedness. No fever no chills. 01/14/2018 Patient denied any complaints of chest pain or shortness of breath. Left knee pain is controlled. No nausea vomiting or abdominal pain. No acute overnight issues. All other review of systems negative except the above Current medications reviewed Objective - Vital Signs Vital signs: Vital Signs Temp 98.1 F 01/14/18 10:20 Pulse 77 01/14/18 10:33 Resp 16 01/14/18 10:33 BP 142/75 01/14/18 10:20 Pulse Ox 91 L 01/14/18 10:33 Intake & Output 01/13/18 01/14/18 01/14/18 18:59 06:59 18:59 Intake Total 1651 800 440 Output Total 100 750 700 Balance 1551 50 -260 Weight 120.202 kg Intake: IV 1101 Oral 550 800 440 Output: Urine 750 700 Straight 750 Estimated Blood Loss 100 - Exam PHYSICAL EXAMINATION: Patient is lying in the bed comfortably, no acute distress, awake alert and oriented.. HEENT: Normocephalic. Neck is supple. Pupils reactive. Nostrils clear. Oral cavity is moist. Ears reveal no drainage. Neck reveals no JVD, carotid bruits, or thyromegaly. CHEST EXAMINATION: Trachea is central. Symmetrical expansion. Lung wright clear to auscultation and percussion. CARDIAC: Normal S1, S2 with no gallops. No murmurs ABDOMEN: Soft. Bowel sounds normal. No organomegaly. No abdominal bruits. Extremities: reveal no edema. No clubbing or cyanosis Neurologically awake, alert, oriented x3 with well-coordinated movements. No focal deficits noted Skin: No rash or skin lesions. Psychiatric: Coperative. Nonsuicidal Musculoskeletal: No joint swelling or deformity. Normal range of motion. Left knee surgical site intact - Labs CBC & Chem 7: 01/14/18 06:21 Labs: Abnormal Lab Results - Last 24 Hours (Table) 01/14/1818 Range/Units 06:21 06:21 RBC 4.07 L (4.30-5.90) m/uL Hgb 12.7 L (13.0-17.5) gm/dL Hct 37.1 L (39.0-53.0) % Neutrophils # 8.0 H (1.3-7.7) k/uL INR 1.2 H (<1.2) Assessment and Plan Assessment: Status post left total knee arthroplasty on 01/13/2018 due to severe ostioarthritis Hypertension controlled Hyperlipidemia Hypothyroidism Coronary artery disease with history of stents 6 Abdominal aortic aneurysm. On close follow-up History of renal stones Morbid obesity with BMI 37 DVT prophylaxis Plan: Patient will be continued on pain management and bowel regimen. Encourage incentive spirometry and ambulation. DVT prophylaxis. Continue with home medications and restart blood pressure medications as tolerated. Patient is being discharged home today. Recommended to follow with PCP no 1-3 days. Thank you for your consult Time with Patient: Greater than 30
== END 2018-01-14 15:54 | disposition home health service (06) | DRG 470 ==
LOC: 2ORMAIN 09:19 → 3SUR 13:34
PROVIDERS: ADMIT Orthopaedic Surgery Sports Medicine; ATTEND Orthopaedic Surgery Sports Medicine
PROC: 0SRD0J9 Replacement of Left Knee Joint with Synthetic Substitute, Cemented, Open Approach (ICD-10-PCS; principal; 2018-01-13 11:00)
DX: M17.12 Unilateral primary osteoarthritis, left knee (principal); E03.9 Hypothyroidism, unspecified; E78.5 Hyperlipidemia, unspecified; I10 Essential (primary) hypertension; I25.10 Atherosclerotic heart disease of native coronary artery without angina pectoris; Z79.01 Long term (current) use of anticoagulants; Z79.899 Other long term (current) drug therapy; Z86.79 Personal history of other diseases of the circulatory system; Z87.442 Personal history of urinary calculi; Z95.5 Presence of coronary angioplasty implant and graft; Z79.82 Long term (current) use of aspirin; Z83.3 Family history of diabetes mellitus; Z87.891 Personal history of nicotine dependence; Z68.37 Body mass index [BMI] 37.0-37.9, adult; E66.01 Morbid (severe) obesity due to excess calories; Z79.890 Hormone replacement therapy
CPT/HCPCS: 85025; 85610; 88300

== ENCOUNTER → 2019-02-27 | Outpatient (CLI) | payer MEDICARE ==
--- NOTE | 2019-02-27 13:13 | US ---
EXAMINATION TYPE: US duplex aorta DATE OF EXAM: 02/27/2019 COMPARISON: Ultrasound 02/27/[address] 10/30/2016 CLINICAL HISTORY: 78-year-old male I74.1 abdominal aortic aneurysm without rupture. TECHNIQUE: Multiple sonographic images of the abdominal aorta are obtained. FINDINGS: EXAM MEASUREMENTS: Abdominal Aorta: Proximal: 2.4 x 2.0 cm Mid: 2.3 x 2.2 cm Distal: 4.1 x 4.6 cm (previously measured at 3.8 x 3.5 cm). (Measures 4.6 x 4.[address] of 2016) Bifurcation: right, 1.9 x 1.8 cm left, 2.0 x 2.1 cm (right and left previously measured at 1.2 cm each). (On CT of 10/30/2016, these measured up to 1.6 and 1.8 cm on the right and left, respectivel y). Home Staging Specialist notes: Distal AAA. IMPRESSION: 1. Distal AAA measurements were underestimated on the patient's 11/12/2016 ultrasound. Current measurem ents are 4.6 x 4.1 cm which is relatively stable as compared to the CT of 10/30/2016. 2. Right and left common iliac arteries are measured at 1.9 and 2.1 cm, respectively. They were also underestimated on the prior ultrasound at 1.2 cm. On the patient's 2017 CT, they measured 1.6 and 1.8 cm, respectively. Some increase in size is not excluded.
== END | disposition home or self-care (01) ==
LOC: RADUSWWP 08:09
PROVIDERS: ATTEND Family Medicine
DX: I71.4 Abdominal aortic aneurysm, without rupture (principal)
CPT/HCPCS: 93979

== ENCOUNTER → 2019-12-29 | Outpatient (CLI) | payer MEDICARE ==
[2019-12-29 14:17] LABS: HGB 14.7 gm/dL (13.0-17.5); MCH 31.3 pg (25.0-35.0); MCHC 33.4 g/dL (31.0-37.0); MCV 93.7 fL (80.0-100.0); Mean Platelet Volume 6.9; Platelet Count 191 k/uL (150-450); RDW 13.5 % (11.5-15.5); WBC 6.3 k/uL (3.8-10.6)
[2019-12-29 14:24] LABS: Partial Thromboplastin Time 23.9 sec (22.0-30.0); Prothrombin Time 10.1 sec (9.0-12.0)
[2019-12-29 14:38] LABS: Appearance,Urine Clear (Clear); Bilirubin,Urine Negative (Negative); Blood,Urine Negative (Negative); Color,Urine Yellow; Glucose,Urine (UA) Negative (Negative); Ketones,Urine Negative (Negative); Leukocyte Esterase,Urine Negative (Negative); Nitrite,Urine Negative (Negative); PH, Urine 5.5 (5.0-8.0); Protein,Urine Negative (Negative); Specific Gravity,Urine 1.013 (1.001-1.035); Urobilinogen,Urine <2.0 mg/dL (<2.0)
[2019-12-29 15:12] LABS: ALT 35 U/L (4-49); AST 44 U/L (17-59); African American GFR (CKD) >90 (>60 ml/min/1.73 sqM); Albumin 3.9 g/dL (3.5-5.0); Alkaline Phosphatase 62 U/L (38-126); Anion Gap 9 mmol/L; Blood Urea Nitrogen 18 mg/dL (9-20); Calcium 9.1 mg/dL (8.4-10.2); Carbon Dioxide 21 mmol/L (22-30); Chloride 109 mmol/L (98-107); Glucose 115 mg/dL (74-99); Non-African American GFR(CKD) >90 (>60 ml/min/1.73 sqM); Potassium 4.6 mmol/L (3.5-5.1); Sodium 139 mmol/L (137-145); Total Bilirubin 0.6 mg/dL (0.2-1.3); Total Protein 7.5 g/dL (6.3-8.2)
== END | disposition home or self-care (01) ==
LOC: LABPAT 13:46
PROVIDERS: ATTEND Orthopaedic Surgery Sports Medicine
DX: Z01.818 Encounter for other preprocedural examination (principal); Z01.812 Encounter for preprocedural laboratory examination; Z79.01 Long term (current) use of anticoagulants
CPT/HCPCS: 36415; 80053; 81003; 85027; 85610; 85730; 87070

== ENCOUNTER 2020-01-03 13:05 | Day surgery (SDC) | payer MEDICARE ==
[2019-12-29 15:58] VITALS: BMI 37.1
[~2020-01-03 13:05] MED LIST changes: +BISACODYL 10 MG SUPP RECTAL PRN; +DIAZEPAM 5 MG TAB PO PRN; +GABAPENTIN 300 MG CAP PO ONE; +HYDROcodone/APAP 5-325MG 1 EACH TAB PO PRN; -LACTATED RINGERS 1,000 ML IV SCH; +MAGNESIUM HYDROXIDE 2,400 MG/10 ML CUP PO PRN; +MELOXICAM 7.5 MG TAB PO ONE; +NA PHOS,M-B/NA PHOS,DI-BA 133 ML ENEMA RECTAL PRN; +NALOXONE 0.4 MG/ML 1 ML VIAL IV PRN; +ONDANSETRON 4 MG/2 ML VIAL IVP PRN; -ROPIVACAINE 246.25 MG, EPINEPHrine 0.5 MG, KETOROLAC 30 MG, cloNIDine HCL/PF 80 MCG, WA... MISCELLANE ONE; +TRANEXAMIC ACID 1,000 MG in SODIUM CHLORIDE 0.9% 100 ML IVPB ONE; -TRANEXAMIC ACID 1,000 MG in SODIUM CHLORIDE 0.9% 50 ML IVPB ONE; +ceFAZolin 3 GM in SODIUM CHLORIDE 0.9% 100 ML IVPB ONE; +hydrOXYzine PAMOATE 25 MG CAP PO PRN
[2020-01-03] MEDS ORDERED: ONDANSETRON 4 MG/2 ML VIAL ONE (14:11)
[2020-01-03] MEDS ORDERED: ACETAMINOPHEN TAB 500 MG TAB ONE (14:11)
[2020-01-03] MEDS: LACTATED RINGERS 1,000 ML IV SCH (14:21)
[2020-01-03] MEDS ORDERED: fentaNYL (PF) 50 MCG/ML 2 ML AMP IVP ONE ×2 (15:26→15:30)
[2020-01-03] MEDS: MIDAZOLAM 2 MG/2 ML VIAL IV PRN ×2 (15:26→15:30)
--- NOTE | 2020-01-03 15:34 | P.CRDCN ---
History of Present Illness History of present illness: HISTORY OF PRESENTING ILLNESS This is a pleasant 79-year-old male past medical history significant for coronary artery disease status post PCI to the circumflex artery over 10 years ago, hypertension and dyslipidemia. He follows in the office with Dr. Reed. We have been asked to see in consultation for PVCs. The patient came in for elective right knee replacement with Dr. Laboy. He saw Dr. Reed earlier this month for preoperative evaluation and given an acceptable risk to undergo surgery and anesthesia. However PVCs were noted on the monitor prompting an EKG to be obtained. EKG revealed sinus mechanism with PVCs. Monitor telemetry tracings were reviewed and revealed intermittent unifocal PVCs. Patient was seen and examined sitting up in bed in no acute distress. He has no symptoms of chest pain, shortness of breath, dizziness or palpitations. He had baseline labs drawn prior to arrival. WBC 6.3, hemoglobin 14.7, platelets 191, sodium 139, potassium 4.6 and creatinine 0.62. Current daily cardiac medications include Toprol 50 mg in the morning, Imdur 60 mg daily, atorvastatin 40 mg daily and aspirin 81 mg daily. 6 aspirin has been on hold for 5 days. He states he took his Toprol this morning before coming in for his procedure. Most recent stress test was a Lexiscan stress test in 2018 that was negative for reversible cardiac ischemia. Most recent echocardiogram obtained in December 2017 revealed preserved LV systolic function with ejection fraction 60%. REVIEW OF SYSTEMS At the time of my exam: CONSTITUTIONAL: Denies fever or chills. CARDIOVASCULAR: Denies chest pain, shortness of breath, orthopnea, PND or palpitations. RESPIRATORY: Denies cough. GASTROINTESTINAL: Denies abdominal pain, diarrhea, constipation, nausea or vomiting. MUSCULOSKELETAL: Denies myalgias. NEUROLOGIC: Denies numbness, tingling or weakness. ENDOCRINE: Denies fatigue, weight change, polydipsia or polyurina. GENITOURINARY: Denies burning, hematuria or urgency with micturation. HEMATOLOGIC: Denies history of anemia or bleeding. PHYSICAL EXAMINATION Blood pressure 161/87 heart rate 69 afebrile and maintaining oxygen saturation on room air. CONSTITUTIONAL: No apparent distress. HEENT: Head is normocephalic. Pupils are equal, round. Sclerae anicteric. Mucous membranes of the mouth are moist. No JVD. No carotid bruit. CHEST EXAMINATION: Lungs are clear to auscultation. No chest wall tenderness is noted on palpation or with deep breathing. HEART EXAMINATION: Regular rate and rhythm. S1, S2 heard. No murmurs, gallops or rub. ABDOMEN: Soft, nontender. Positive bowel sounds. EXTREMITIES: 2+ peripheral pulses, no lower extremity edema and no calf tende rness. NEUROLOGIC EXAMINATION: Patient is awake, alert and oriented x3. ASSESSMENT Premature ventricular contractions Right knee pain and swelling scheduled to undergo right knee replacement Coronary artery disease status post PCI to the circumflex artery Hypertension Dyslipidemia Obesity, BMI 38 PLAN PVCs noted on telemetry tracings. There are infrequent and the patient is asymptomatic. There is no evidence of nonsustained percent stained ventricular tachycardia. There is no arrhythmia noted. The patient did take his Toprol this morning. He is currently stable to proceed with the planned surgical intervention of the right knee. This was discussed with Dr. Robertson and plan of care agreed upon. Discussed with Dr. Agarwal Thank you kindly for this consultation. Nurse Practitioner note has been reviewed, I agree with a documented findings and plan of care. Patient was seen and examined. Past Medical History Past Medical History: Coronary Artery Disease (CAD), Hyperlipidemia, Hypertension, Thyroid Disorder Additional Past Medical History / Comment(s): cardiac stents, AAA (states Dr is watching), hx kidney stones, hx of polyps History of Any Multi-Drug Resistant Organisms: None Reported Past Surgical History: Heart Catheterization With Stent, Joint Replacement, Tonsillectomy Additional Past Surgical History / Comment(s): left knee 2018, 6 stents, charity cataracts Past Anesthesia/Blood Transfusion Reactions: No Reported Reaction Date of Last Stent Placement:: 2002? Smoking Status: Former smoker - Past Family History Mother Family Medical History: No Reported History Medications and Allergies Home Medications Medication Instructions Recorded Confirmed Type Aspirin EC [Ecotrin Low Dose] 81 mg PO HS 10/30/16 12/29/19 History Atorvastatin [Lipitor] 40 mg PO DAILY 10/30/16 12/29/19 History Cholecalciferol [Vitamin D3] 2,000 unit PO DAILY 10/30/16 12/29/19 History Fish Oil/Dha/Epa [Fish Oil 1,200 1 cap PO DAILY 10/30/16 12/29/19 History mg Fish Oil] Isosorbide Mononitrate ER [Imdur] 60 mg PO QAM 10/30/16 12/29/19 History Metoprolol Succinate (ER) [Toprol 50 mg PO QAM 10/30/16 12/29/19 History Xl] Nitroglycerin Sl Tabs [Nitrostat] 0.4 mg SUBLINGUAL Q5M PRN 10/30/16 12/29/19 History Omeprazole 20 mg PO HS 10/30/16 12/29/19 History Niacin (Inositol Niacinate) [No 800 mg PO HS 11/25/17 12/29/19 History Flush Niacin 400 mg Cap] Levothyroxine Sodium [Synthroid] 50 mcg PO DAILY 01/13/18 12/29/19 History Allergies Allergy/AdvReac Type Severity Reaction Status Date / Time No Known Allergies Allergy Verified 01/03/20 13:35 Physical Exam Vitals: Vital Signs Temp Pulse Resp BP Pulse Ox 01/03/20 14:19 97.0 F L 69 16 161/87 96 Intake and Output 01/03/20 01/03/20 01/03/20 06:59 14:59 22:59 Other: Weight 125.4 kg Results Current Medications Generic Name Dose Route Start Last Admin Trade Name Freq PRN Reason Stop Dose Admin Hydrocodone Bitart/Acetaminophen 1 each 01/03/20 12:58 Cameron 5-325 PO Q6HR PRN Pain Scale 1 to 5 Hydrocodone Bitart/Acetaminophen 2 each 01/03/20 12:58 Cameron 5-325 PO Q6HR PRN Pain Scale 6 to 10 Aspirin 81 mg 01/03/20 21:00 Aspirin PO BID KORINA Bisacodyl 10 mg 01/03/20 12:58 Dulcolax RECTAL DAILY PRN Constipation Diazepam 2.5 mg 01/03/20 12:58 Valium PO Q8HR PRN Mild Spasms Hydromorphone HCl 0.5 mg 01/03/20 05:47 Dilaudid IVP 01/04/20 05:48 Q5M PRN Pain Control Hydromorphone HCl 0.125 mg 01/03/20 12:58 Dilaudid IVP Q3HR PRN Pain Scale 1 to 3 Hydromorphone HCl 0.25 mg 01/03/20 12:58 Dilaudid IVP Q3HR PRN Pain Scale 4 to 6 Hydromorphone HCl 0.5 mg 01/03/20 12:58 Dilaudid IVP Q3HR PRN Pain Scale 7 to 10 Hydroxyzine Pamoate 25 mg 01/03/20 12:58 Vistaril PO Q4HR PRN Nausea, Anxiety, Pain Control Lactated Ringer's 1,000 mls @ 20 mls/hr 01/03/20 05:47 01/03/20 14:21 Lactated Ringers IV 0 mls .Q24H KORINA Administration Sodium Chloride 1,000 mls @ 70 mls/hr 01/03/20 13:00 Saline 0.9% IV .[id number] KORINA Cefazolin Sodium 2 gm/ Sodium 50 mls @ 100 mls/hr 01/03/20 16:00 Chloride IVPB 01/04/20 00:29 Q8HR [facility] Magnesium Hydroxide 2,400 mg 01/03/20 12:58 Milk Of Magnesia PO DAILY PRN Constipation Meloxicam 7.5 mg 01/04/20 09:00 Mobic PO DAILY [facility] Midazolam HCl 2 mg 01/03/20 05:47 Versed IV 01/04/20 05:48 ONCE PRN Anxiety Naloxone HCl 0.2 mg 01/03/20 12:58 Narcan IV Q2M PRN Opioid Reversal Ondansetron HCl 4 mg 01/03/20 12:58 Zofran IVP Q8HR PRN Nausea And Vomiting Senna/Docusate Sodium 2 each 01/03/20 21:00 Senokot-S PO HS [facility] Sodium Biphosphate/Sodium Phosphate 133 ml 01/03/20 12:58 Fleet Adult RECTAL DAILY PRN Constipation Intake and Output 01/03/20 01/03/20 01/03/20 06:59 14:59 22:59 Other: Weight 125.4 kg Patient Weight 01/04/20 06:59 Weight 125.4 kg
[2020-01-03] MEDS ORDERED: ePHEDrine SULFATE/0.9% NACL/PF 50 MG/5 ML SYRINGE IV ONE (15:49)
[2020-01-03] MEDS ORDERED: fentaNYL (PF) 50 MCG/ML 2 ML AMP ONE (15:49)
[2020-01-03] MEDS ORDERED: MIDAZOLAM 2 MG/2 ML VIAL ONE (15:49)
[2020-01-03] MEDS: ROPIVACAINE 246.25 MG, EPINEPHrine 0.5 MG, KETOROLAC 30 MG, cloNIDine HCL/PF 80 MCG, WA... MISCELLANE ONE ×15 (16:16→16:54)
[2020-01-03] MEDS ORDERED: ceFAZolin 3,000 MG in SODIUM CHLORIDE 0.9% IRRIGATIO 3,000 ML IRRIGATION ONE (16:18)
[2020-01-03] MEDS ORDERED: ROPIVACAINE 0.2%-NS ON-Q PUMP 1,090 MG, EMPTY PAIN BALL 1 EACH MISCELLANE PRN ×2 (17:33→17:48)
--- NOTE | 2020-01-03 17:50 | P.ANPRN ---
Procedure Note - Anesthesia - Nerve Block Performed Right Adductor Canal Date of Procedure: 01/03/20 Procedure Start Time: 15:25 Procedure Stop Time: 15:38 Location of Patient: PreOp Indication: Acute Post-Operative Pain, Requested by Surgeon (Dr Laboy) Sedation Type: Sedate with meaningful contact maintained Preparation: Sterile Prep, Sterile Dressing Position: Supine Catheter: Indwelling Needle Types: Pajunk Needle Gauge: 21 Ultrasound used to visualize needle placement: Yes Ultrasound used to observe medication spread: Yes Injectate: 0.5% Ropivacaine (see comment for volume) (20cc) Blood Aspirated: No Pain Paresthesia on Injection Noted: No Resistance on Injection: Normal Image Stored and Saved: Yes Events: Uneventful and Well Tolerated
--- NOTE | 2020-01-03 18:32 | XR ---
EXAMINATION TYPE: XR knee limited RT DATE OF EXAM: 01/03/2020 CLINICAL HISTORY: Right knee pain and arthritis status post total knee replacement. TECHNIQUE: Portable AP and crosstable lateral views of the right knee are obtained immediately posto peratively. COMPARISON: None FINDINGS: Metallic hardware from total right knee arthroplasty is seen and appears satisfactory in a lignment and position. There is evidence of recent surgery with diffuse subcutaneous gas and soft ti ssue swelling noted. Posterior vascular calcification incidentally seen. [place] osseous structures ar e demineralized. IMPRESSION: METALLIC HARDWARE FROM TOTAL RIGHT KNEE ARTHROPLASTY IS SATISFACTORY IN ALIGNMENT.
[2020-01-03] MEDS ORDERED: ASPIRIN 81 MG PO SCH (21:00)
[2020-01-03] MEDS ORDERED: SENNOSIDES-DOCUSATE SODIUM 1 EACH TAB PO SCH (21:00)
[2020-01-03 21:17] LABS: African American GFR (CKD) >90 (>60 ml/min/1.73 sqM); Anion Gap 10 mmol/L; Blood Urea Nitrogen 18 mg/dL (9-20); Calcium 8.7 mg/dL (8.4-10.2); Carbon Dioxide 23 mmol/L (22-30); Chloride 104 mmol/L (98-107); Glucose 232 mg/dL (74-99); Magnesium 1.7 mg/dL (1.6-2.3); Non-African American GFR(CKD) 89 (>60 ml/min/1.73 sqM); Potassium 4.7 mmol/L (3.5-5.1); Sodium 137 mmol/L (137-145)
[2020-01-03] MEDS ORDERED: NITROGLYCERIN SL TABS 0.4 MG TAB SUBLINGUAL PRN (22:59)
[2020-01-03] MEDS: ceFAZolin 3 GM in SODIUM CHLORIDE 0.9% 100 ML IVPB SCH (23:58)
[2020-01-03] MEDS: SODIUM CHLORIDE 0.9% 1,000 ML IV SCH (23:59)
[2020-01-04] MEDS: LACTATED RINGERS 1,000 ML IV SCH (02:14)
[2020-01-04] MEDS: SODIUM CHLORIDE 0.9% 1,000 ML IV SCH (04:50)
[2020-01-04 06:16] VITALS: PULSE 51; RESP 18; TEMP 97.8
[2020-01-04] MEDS ORDERED: LEVOTHYROXINE 50 MCG TAB PO SCH (06:30)
[2020-01-04] MEDS ORDERED: INSULIN ASPART (NovoLOG) 100 UNIT/ML VIAL SQ SCH (07:30)
[2020-01-04 08:08] VITALS: BP 163/73
[2020-01-04 08:13] LABS: Glucose,Whole Blood 218 mg/dL (75-99)
--- NOTE | 2020-01-04 08:31 | P.PN ---
Progress Note - Text Progress Note Date: 01/04/20 (635 Am) Patient was seen at bedside at 635 AM. Patient is postop day 1 from right total knee replacement with adductor canal catheter placed for pain . Ropivacaine 0.2% infusion running at 8 ml per hour. VAS score is 4/10. Patient denies side effects. Lower extremity sensation and motor function is intact. Patient has ambulated. Dressing clean dry and intact over catheter site
[2020-01-04] MEDS ORDERED: CHOLECALCIFEROL 1,000 UNIT TAB PO SCH (09:00)
[2020-01-04] MEDS ORDERED: MELOXICAM 7.5 MG TAB PO SCH (09:00)
[2020-01-04] MEDS ORDERED: METOPROLOL SUCCINATE (ER) 50 MG TAB.ER.24H PO SCH (09:00)
[2020-01-04] MEDS ORDERED: ISOSORBIDE MONONITRATE ER 60 MG TAB.ER.24H PO SCH (09:00)
[2020-01-04] MEDS ORDERED: ATORVASTATIN 40 MG TAB PO SCH (09:00)
[2020-01-04] MEDS: ceFAZolin 3 GM in SODIUM CHLORIDE 0.9% 100 ML IVPB SCH (09:28)
[2020-01-04 09:35] LABS: Basophils % (A) 0 %; Eosinophils % (A) 0 %; HCT 38.7 % (39.0-53.0); HGB 12.7 gm/dL (13.0-17.5); Lymphocytes % (A) 11 %; MCH 30.8 pg (25.0-35.0); MCHC 32.9 g/dL (31.0-37.0); MCV 93.7 fL (80.0-100.0); Mean Platelet Volume 7.7; Monocytes # (A) 0.4 k/uL (0-1.0); Monocytes % (A) 5 %; Neutrophils # (A) 7.8 k/uL (1.3-7.7); Neutrophils % (A) 84 %; Platelet Count 157 k/uL (150-450); RBC 4.13 m/uL (4.30-5.90); RDW 13.4 % (11.5-15.5); WBC 9.3 k/uL (3.8-10.6)
[2020-01-04 11:39] LABS: Glucose,Whole Blood 200 mg/dL (75-99)
--- NOTE | 2020-01-04 12:08 | P.PN ---
Subjective HISTORY OF PRESENTING ILLNESS This is a pleasant 79-year-old male past medical history significant for coronary artery disease status post PCI to the circumflex artery over 10 years ago, hypertension and dyslipidemia. He follows in the office with Dr. Reed. Patient was seen and examined sitting up in the chair in no acute distress. He has been up and ambulating with physical therapy. He denies symptoms of chest pain, shortness of breath, dizziness or palpitations. Blood pressure 163/73 heart rate 51 afebrile maintaining oxygen saturation on room air. Laboratory data reviewed, WBC 9.3, hemoglobin 12.7, platelets 157, sodium 137, potassium 4.7, creatinine 0.74 and magnesium 1.7. PHYSICAL EXAMINATION CONSTITUTIONAL: No apparent distress. HEENT: Head is normocephalic. Pupils are equal, round. Sclerae anicteric. Mucous membranes of the mouth are moist. No JVD. No carotid bruit. CHEST EXAMINATION: Lungs are clear to auscultation. No chest wall tenderness is noted on palpation or with deep breathing. HEART EXAMINATION: Regular rate and rhythm. S1, S2 heard. No murmurs, gallops or rub. EXTREMITIES: 2+ peripheral pulses, no lower extremity edema and no calf tenderness. ASSESSMENT Premature ventricular contractions Right knee pain and swelling scheduled to undergo right knee replacement Coronary artery disease status post PCI to the circumflex artery Hypertension Dyslipidemia Obesity, BMI 38 PLAN Stable from a cardiac perspective. Follow with Dr. Reed upon discharge. Nurse Practitioner note has been reviewed, I agree with a documented findings and plan of care. Patient was seen and examined. Objective - Vital Signs Vital signs: Vital Signs Temp 97.8 F 01/04/20 07:00 Pulse 51 L 01/04/20 07:43 Resp 18 01/04/20 07:43 BP 163/73 01/04/20 07:00 Pulse Ox 93 L 01/04/20 07:00 Intake & Output 01/03/20 01/04/20 01/04/20 18:59 06:59 18:59 Intake Total 951 Output Total 100 Balance 851 Weight 125.4 kg Intake: IV 951 Output: Estimated Blood Loss 100 Other: Voiding Method Urinal Urinal # Bowel Movements 0 0 # Emeses 0 0 - Labs CBC & Chem 7: 01/04/20 08:59 01/03/20 20:50 Labs: Abnormal Lab Results - Last 24 Hours (Table) 01/03/20 01/04/20 01/04/20 Range/Units 20:50 08:11 08:59 RBC 4.13 L (4.30-5.90) m/uL Hgb 12.7 L (13.0-17.5) gm/dL Hct 38.7 L (39.0-53.0) % Neutrophils # 7.8 H (1.3-7.7) k/uL Glucose 232 H (74-99) mg/dL POC Glucose (mg/dL) 218 H (75-99) mg/dL 01/04/20 Range/Units 11:37 RBC (4.30-5.90) m/uL Hgb (13.0-17.5) gm/dL Hct (39.0-53.0) % Neutrophils # (1.3-7.7) k/uL Glucose (74-99) mg/dL POC Glucose (mg/dL) 200 H (75-99) mg/dL
--- NOTE | 2020-01-04 12:33 | P.DS ---
Providers Expected date of discharge: 01/04/20 Attending physician: García Laboy Consults: 01/03/20 12:58 Consult Physician Routine Consulting Provider: Oswald Ashraf Consult Reason/Comments: medical management Do you want consulting provider notified?: Yes 01/03/20 14:52 Consult Physician Stat Consulting Provider: Zach Robertson Consult Reason/Comments: PVC Do you want consulting provider notified?: Yes Primary care physician: Oswald Ashraf - Discharge Diagnosis(es) (1) Osteoarthritis of right knee Current Visit: Yes Status: Acute (2) S/P total knee arthroplasty Current Visit: No Status: Acute Hospital Course: This is a 79-year-old male with known history of degenerative arthritis of the right knee. The patient presents for evaluation. After discussion and consideration patient elects to proceed with total knee arthroplasty. The pat ient is seen preoperatively by Dr. Laboy and medically cleared for surgery by their primary care physician. Patient is admitted to [facility] on 01/03/2020 for total knee arthroplasty. The procedures performed without complication or sequelae. The patient is doing well postoperatively. Labs and vital signs are stable on day of discharge. On day of discharge patient's knee incision is healing well. There is minimal erythema. There is no drainage noted at this time. There is minimal soft tissue swelling to the knee. Patient has full foot and ankle motion without difficulty or pain. Calf is soft and nontender to palpation. Neurovascular status to the right lower extremity is intact. Patient is discharged home in good condition. Opioid start talking form is reviewed and signed at patient bedside. Please see med rec for accurate list of home medications. Plan - Discharge Summary Discharge Rx Participant: No New Discharge Prescriptions: New Aspirin [Adult Low Dose Aspirin EC] 81 mg PO BID 30 Days #60 tablet. HYDROcodone/APAP 5-325MG [Boyle 5-325] 1 - 2 tab PO Q6HR PRN #48 tab PRN Reason: Pain Sennosides [Senokot] 2 tab PO DAILY PRN #60 tablet PRN Reason: Constipation No Action Omeprazole 20 mg PO HS Nitroglycerin Sl Tabs [Nitrostat] 0.4 mg SUBLINGUAL Q5M PRN PRN Reason: Chest Pain Metoprolol Succinate (ER) [Toprol Xl] 50 mg PO QAM Isosorbide Mononitrate ER [Imdur] 60 mg PO QAM Fish Oil/Dha/Epa [Fish Oil 1,200 mg Fish Oil] 1 cap PO DAILY Cholecalciferol [Vitamin D3] 2,000 unit PO DAILY Atorvastatin [Lipitor] 40 mg PO DAILY Aspirin EC [Ecotrin Low Dose] 81 mg PO HS Niacin (Inositol Niacinate) [No Flush Niacin 400 mg Cap] 800 mg PO HS Levothyroxine Sodium [Synthroid] 50 mcg PO DAILY Discharge Medication List Aspirin EC [Ecotrin Low Dose] 81 mg PO HS 10/30/16 [History] Atorvastatin [Lipitor] 40 mg PO DAILY 10/30/16 [History] Cholecalciferol [Vitamin D3] 2,000 unit PO DAILY 10/30/16 [History] Fish Oil/Dha/Epa [Fish Oil 1,200 mg Fish Oil] 1 cap PO DAILY 10/30/16 [History] Isosorbide Mononitrate ER [Imdur] 60 mg PO QAM 10/30/16 [History] Metoprolol Succinate (ER) [Toprol Xl] 50 mg PO QAM 10/30/16 [History] Nitroglycerin Sl Tabs [Nitrostat] 0.4 mg SUBLINGUAL Q5M PRN 10/30/16 [History] Omeprazole 20 mg PO HS 10/30/16 [History] Niacin (Inositol Niacinate) [No Flush Niacin 400 mg Cap] 800 mg PO HS 11/25/17 [History] Levothyroxine Sodium [Synthroid] 50 mcg PO DAILY 01/13/18 [History] Aspirin [Adult Low Dose Aspirin EC] 81 mg PO BID 30 Days #60 tablet. 01/04/20 [Rx] HYDROcodone/APAP 5-325MG [Boyle 5-325] 1 - 2 tab PO Q6HR PRN #48 tab 01/04/20 [Rx] Sennosides [Senokot] 2 tab PO DAILY PRN #60 tablet 01/04/20 [Rx] Follow up Appointment(s)/Referral(s): Oswald Ashraf MD [Primary Care Provider] - 01/11/20 10:20 am Erik Reed MD [STAFF PHYSICIAN] - 2 Weeks García Laboy MD [STAFF PHYSICIAN] - 01/16/20 10:00 am Patient Instructions/Handouts: *Surgery [facility] - On-Q Pain Pump Discharge Instructions, Knee Replacement (DC) Activity/Diet/Wound Care/Special Instructions: Weightbearing as tolerated with a walker. Daily dressing changes, keep incision clean and dry. May shower in 24-48 hrs if no drainage from incision. Recommend use of compression stockings daily until follow up to help prevent swelling and blood clots. May remove at night before sleeping. Please call [facility] with questions or concerns [phone]. Discharge Disposition: HOME WITH HOME HEALTH SERVICES
--- NOTE | 2020-01-04 13:20 | OP ---
OPERATIVE REPORT DATE OF PROCEDURE: 01/03/2020. SURGEON: García Laboy M.D. FURNACE HAND: PARKER Braga. PREOPERATIVE DIAGNOSIS: Right knee osteoarthrosis. POSTOP DIAGNOSIS: Right knee osteoarthrosis. OPERATION PERFORMED: Right total knee arthroplasty. ANESTHESIA: Spinal with sedation. ESTIMATED BLOOD LOSS: 100 mL. TOURNIQUET: Tourniquet time was 54 minutes at 250 mmHg. COMPLICATIONS: None apparent. DRAINS: None. DISPOSITION: Postanesthesia care unit. INDICATIONS: Giovani is a very pleasant 79-year-old male with longstanding right knee pain. History and physical examination are consist with advanced right knee osteoarthrosis. He has been through significant nonoperative management up to this point. Further treatment options were discussed and he has decided to go forward with right total knee arthroplasty. Risks of procedure were discussed with him in detail. These risks include, but are not limited to risk of infection, nerve damage, bleeding, pain, and a small risk of deep vein thrombosis which could lead to fatal pulmonary embolism. There is also risk of loosening of the implant which could require revision operation. The patient understands these risks. All his questions were answered to his satisfaction. Appropriate informed consent was obtained. DESCRIPTION OF PROCEDURE: Patient identified in preop holding area. Surgical site was marked by both the patient and myself. Given 2 g of Ancef IV for prophylactic purposes. He was then transferred to the operative suite. He was placed supine on the operative table. Spinal anesthetic was then administered and dosed per the anesthesia without apparent complication. Examination under anesthesia was then performed. The patient was 3-5 degrees shy of full extension. He had 100 degrees of flexion. The medial collateral ligament, lateral collateral ligament posterior cruciate ligaments were stable. Tourniquet was then placed high on the right upper thigh well-padded in preparation for surgery. The patient's right lower extremity than prepped and draped in usual sterile fashion. Standard surgical pause undertaken to ensure we were operating on the correct site and that appropriate preop antibiotics were given. All staff were in agreement and we proceeded. The outlines of the patella marked surgical pen. A planned 12 cm vertical incision over the centered over the patella was marked surgical pen. The leg was then exsanguinated with an Esmarch dressing. The knee was then flexed and a tourniquet was inflated to 250 mmHg. The total tourniquet time for the procedure was 54 minutes. Incision was then made with a 10 blade scalpel. Dissection carried down sharply overlying fascia. Great care was taken to minimize the skin flaps. The knee was then exposed using a standard medial parapatellar approach. A small cuff of quadriceps tendon was then left for suturing. He was in a bit of valgus preoperatively. A very minimal medial release was made. This was done just enough to place the retractors medially. The medial meniscus was then excised as well. The lateral meniscus was also released anteriorly. The leg was then externally rotated. The patella was everted. The knee was flexed. Retractors were then placed to protect the collateral ligaments. I then proceeded to remove the infrapatellar fat pad. This was excised sharply tangentially with fibers of the patellar tendon. I then proceeded to remove peripheral osteophytes. This was done with a rongeur. I then proceeded with the distal femoral resection. Did have a small flexion contracture. A planned 11 mm resection was then done. The femoral canal was then entered in the midline of the femur approximately 10 mm anterior to the origin of posterior cruciate ligament. The levon was then advanced down the center of the femur and placed intramedullary. Based on the preoperative radiographs, the angle between the anatomic and mechanical axis of the femur was approximately 4 to 5 degrees. The valgus angle of the distal femoral cutting guide was then set at 4 degrees for the right knee. The distal femoral cutting guide was then advanced over the intramedullary levon. This was seated firmly against the femur. I then as mentioned planned to take 11 mm off the distal femur. The cutting block was then secured onto the femur with pins. The jig was then removed. Dital femoral cut was made through the slot of the block. The pins were then removed. The distal femoral cutting block was removed. The accuracy of the distal femoral cuts was checked with 2 flat bars. I then proceed to femoral sizing. Posterior referencing sizing guide was held firmly against the resected distal surface of the femur. The posterior condyles were resting on the posterior plane of the guide. The sizing stylus was then placed onto the anterior femur. The size was measured as a size 11. I then assessed for femoral rotation. The plan was for 3 degrees of external rotation. Three degrees external rotation was placed onto the jig. These holes were then marked. I then confirmed rotation by 3 separate methods. This was done using epicondylar axis as well as Whitesides line and posterior referencing. It was deemed that the external rotation was proper. I then went forward placing the femoral cutting block. This was placed over the over the previously placed pin holes. The Dale wing was then placed onto the anterior slots to ensure that we would not notch the anterior femur with the anterior femoral cut. I then placed proceeded with the anterior femoral cut. This was flush with the anterior cortex of the femur. The posterior cuts were then made, followed by the anterior chamfer cut, then the posterior chamfer cut. The cutting block was then removed. Throughout the resection, the collateral ligaments were protected with retractors. I then placed a trial size 11 femur. It fit very nice medial-lateral and fit flush with the distal end of the femur. The drill holes were then made. I then proceed with the tibial cut. I planned for a cruciate-retaining knee. The guide was placed and set for varus valgus and for slope. The height set for approximate 2 mm resection from the medial tibial plateau which was the lower side. I was happy with the alignment and the amount of resection. The cutting block was then pinned to the proximal tibia. The alignment levon was removed. The proximal tibia was resected with the reciprocating saw. Again, this was done with retractors protecting the collateral ligaments as well as the posterior cruciate ligament. I then proceeded to evaluate the flexion extension gaps. A 10 mm block was then placed. The flexion-extension gaps were equal. I then proceeded with the resection of posterior osteophytes. Very minimal posterior osteophytes. This was done using a curved osteotome. This resected the posterior osteophytes and posterior capsule stripping was done off the posterior aspect of the femur at this time. The osteophytes were then removed. I then proceed to resection of patella. The thickness of patella was measured using the caliper. The thickness was 22 mm. The thickness of the anticipated patellar dome was taken into account. The resection was then performed and confirmed to be equal in 4 quadrants using a caliper. Approximately 14 mm of bone remained after resection. A 32 x 8.5 standard patellar trial was then placed. The holes were drilled. The trial was then placed. I then proceeded with sizing tibial plate. A size G tibial plate fit very nicely. I then placed the trial femur, the tibial tray and patellar button. A 10 mm trial tibial insert was also placed. The components fit very nicely. He had full extension and flexion. The extension and flexion gaps were equal and stable to both varus and valgus stress. The patella tracked appropriately. Tibial tray rotation was then marked with a Bovie. This was externally rotated properly. I then proceed with tibial preparation. I first drilled the femoral holes, removed femoral component. The tibial tray was then set for proper external rotation as well as mediolateral placement of the tibia. It was then pinned into place. I then proceed with punching the keel. I then decided to proceed with cementing of all of our components. The knee was thoroughly irrigated with sterile saline solution via pulse lavage. The lateral geniculate artery was identified and cauterized. All blood was removed from the bone of the tibia femur and patella with pulse lavage. I then proceed with cementing. Two packs of antibiotic bone cement was prepared on the back table by the certified surgical tech/first assistant. I then proceeded with cementing the tibia first. The cement was impacted into the keel as well as deeply seated in the bone. A second coat of cement was then placed. The tibia was then impacted into place. Excess cement was removed with Luckey's and Joker's. I then proceed with cementing of the femoral component. The femoral component was also cemented using standard technique. Excess cement was removed. A 10 mm trial insert was then placed into the knee. It was brought into full extension with a constant axial load placed until the cement had hardened. The patellar component was then cemented. This was held firmly with a compressive device until the cement had dried. When the cement had dried, the knee was taken out of extension. All excess cement was removed from around the prosthesis. I then trialed the knee with a 10 mm insert. The knee was stable. It came in full extension. I decided to go forward with a 10 mm cross-linked cruciate-retaining tibial insert. Polyethylene was then placed on the tibial tray and locked into place. The knee was then reduced. The knee was again further irrigated with sterile saline solution with antibiotic added. The tourniquet was then deflated. The total tourniquet time for the procedure was 54 minutes at 250 mmHg. Final components were Edu Persona size 11 cruciate-retaining femoral component, a size G tibial tray, a 10 mm medial congruent cruciate-retaining polyethylene insert and a 32 x 8.5 mm patella. I then proceed with closure. Again, the knee was thoroughly irrigated. The quadriceps tendon and medial retinaculum were reapproximated with #2 Ethibond suture. The extensor mechanism was then closed with a running #2 Quill suture. Subcutaneous tissues were closed with 2-0 Vicryl interrupted suture. The skin was closed with a running 3-0 Quill suture. Dermabond was applied to the incision. Sterile compressive dressing was then applied. All sponge and needle counts were deemed correct prior to closure. The patient tolerated procedure without apparent complication. He was transferred to recovery room in stable condition. MMODL / IJN: [id number] /
--- NOTE | 2020-01-04 13:50 | CONS ---
CONSULTATION DATE OF SERVICE: 01/04/2020 REASON FOR CONSULTATION: Advice regarding CAD and multiple medical issues. REQUESTING PHYSICIAN: Dr. Laboy. HISTORY OF PRESENT ILLNESS: This 79-year-old gentleman with a past history of CAD, hypertension, hypothyroidism, history of cardiac stents, history of abdominal aortic aneurysm, being followed by Dr. Oswald Ashraf in the outpatient setting had a right total knee arthroplasty. The patient is noted to have PVCs in the in the rhythm strip. The patient had multiple EKGs prior to admission which did not show any abnormality apparently. Cardiology has evaluated the patient prior to surgery and recommend to proceed. There is no history of fever or rigors. No headache, loss of consciousness, seizures. PAST HISTORY: CAD, hypertension, hyperlipidemia history of cardiac stents, abdominal aortic aneurysm. HOME MEDICATIONS: Niacin 800 mg q.h.s., omeprazole, nitroglycerin, metoprolol, levothyroxine, Imdur, cholecalciferol, Lipitor, aspirin. Doses reviewed. ALLERGIES: None. FAMILY HISTORY: No history of heart disease or strokes in the family. SOCIAL HISTORY: Previous history of smoking. No history of current smoking or alcohol intake. REVIEW OF SYSTEMS: ENT No history of diminished hearing or vision. CARDIOVASCULAR As mentioned earlier. RESPIRATORY As mentioned earlier. GI No nausea, vomiting, or diarrhea. No dysuria or hematuria. NERVOUS No numbness or weakness. ALLERGY/IMMUNOLOGY No asthma or hayfever. MUSCULOSKELETAL As mentioned earlier. HEMATOLOGY/ONCOLOGY Negative. ENDOCRINE No history of diabetes or hypothyroidism. CONSTITUTIONAL As mentioned earlier. DERMATOLOGY Negative. RHEUMATOLOGY Negative, PSYCHIATRY As mentioned earlier. PHYSICAL EXAMINATION: Alert and oriented x3. Pulse 80, blood pressure 114/60, respirations 16, temperature normal, pulse ox 94% on 2 L HEENT: Conjunctivae normal. Oral mucosa moist. NECK: No jugular venous distention. No lymph node enlargement. CARDIOVASCULAR: S1, S2. RESPIRATORY: Diminished breath sounds at the bases. No rhonchi, no crackles. ABDOMEN: Soft, nontender. No mass palpable. LEGS: Status post right knee arthroplasty. NERVOUS SYSTEM: Higher functions mentioned earlier. Moves all four limbs. No focal motor or sensory deficits. LYMPHATICS: No lymph node in neck or axilla. SKIN: No rash. JOINTS: No active deforming arthropathy. LABS: Glucose 232. Otherwise, coags and chemistry done within normal limits. ASSESSMENT: 1. Status post right total knee arthroplasty. 2. Premature ventricular contractions. 3. Coronary artery disease. 4. Hypertension. 5. Hyperlipidemia. 6. Cardiac stents. 7. History of abdominal aortic aneurysm. 8. History of nephrolithiasis. 9. History of coronary artery disease/stent. 10.History of tonsillectomy. 11.Remote history of nicotine dependence. 12.Elevated blood glucose. RECOMMENDATIONS AND DISCUSSION: In this 79-year-old gentleman who present after surgery I recommend to continue current medications including beta blockers. Otherwise, repeat labs in the morning. The patient also had elevated blood glucose, one single value. I would recommend Accu- Cheks before meals and at bedtime and continue to monitor. Otherwise, we will follow the patient closely with you. Thank you, Dr. Laboy, for letting us participate in the care of this patient. . ELYSSA / HEATHER: [id number] /
[2020-01-04] MEDS ORDERED: ASPIRIN 81 MG PO SCH (21:00)
[2020-01-04] MEDS ORDERED: PANTOPRAZOLE 40 MG TABLET PO SCH (21:00)
--- NOTE | 2020-01-05 02:16 | PN ---
PROGRESS NOTE DATE OF SERVICE: 01/04/2020 This 79-year-old gentleman who was admitted with right total knee arthroplasty improving significantly. No chest pain. No palpitations. No fever. The pain is under control. PHYSICAL EXAMINATION: On exam, alert and oriented x3. Pulse 51, blood pressure 163/73, respiration 18, temperature 97.8, pulse ox 93% on room air. HEENT: Conjunctivae normal. NECK: No jugular venous distention. CARDIOVASCULAR S1, S2 muffled. RESPIRATORY: Breath sounds diminished at the bases. No rhonchi, no crackles. ABDOMEN: Soft. LEGS: Status post right knee arthroplasty. NERVOUS SYSTEM: No focal deficits. LABS: WBC 9.3, hemoglobin 12.7. ASSESSMENT: 1. Status post right total knee arthroplasty. 2. PVCs. 3. Coronary artery disease. 4. Hypertension. 5. Hyperlipidemia. 6. History of cardiac stents. 7. History of abdominal aortic aneurysm. 8. History of nephrolithiasis. 9. History of coronary artery disease, stent. 10.History of tonsillectomy. 11.Remote history of nicotine dependence. 12.Elevated blood glucose. RECOMMENDATIONS AND DISCUSSION: Recommend to continue current medications, continue with monitoring and symptomatic treatment. Resume the home medications. I recommend close monitoring with primary physician Dr. Ashraf. Monitor blood sugars closely. Check CBC, BMP. The rest of the recommendations per Orthopedic Surgery. Further recommendations to follow. MMODL / IJN: [id number] /
== END 2020-01-04 13:50 | disposition home health service (06) ==
LOC: OR 13:05 → 4SSUR 17:25 → OR 01-04 13:50
PROVIDERS: ATTEND Orthopaedic Surgery Sports Medicine
DX: M17.11 Unilateral primary osteoarthritis, right knee (principal); I49.3 Ventricular premature depolarization; I10 Essential (primary) hypertension; I25.10 Atherosclerotic heart disease of native coronary artery without angina pectoris; E03.9 Hypothyroidism, unspecified; G25.81 Restless legs syndrome; I73.9 Peripheral vascular disease, unspecified; K21.9 Gastro-esophageal reflux disease without esophagitis; E78.2 Mixed hyperlipidemia; H91.90 Unspecified hearing loss, unspecified ear; Z87.442 Personal history of urinary calculi; Z95.5 Presence of coronary angioplasty implant and graft; Z96.652 Presence of left artificial knee joint; Z98.41 Cataract extraction status, right eye; Z98.42 Cataract extraction status, left eye; Z90.89 Acquired absence of other organs; Z87.891 Personal history of nicotine dependence; Z79.82 Long term (current) use of aspirin; Z79.890 Hormone replacement therapy; Z79.899 Other long term (current) drug therapy; Z86.79 Personal history of other diseases of the circulatory system; Z86.010 Personal history of colon polyps; Z83.3 Family history of diabetes mellitus; E66.9 Obesity, unspecified; Z68.38 Body mass index [BMI] 38.0-38.9, adult
CPT/HCPCS: 97110; 97161; 64448; 76942; 80048; 83735; 85025; 88300; 73560; 27447; C1776; C1713; J2250; J0171; J1100; J0690 ×3; J2405; J3010; J1885; J2795 ×2; J0735

== ENCOUNTER → 2020-05-20 | Outpatient (CLI) | payer MEDICARE ==
[2020-05-20 20:03] LABS: Chol/HDL Ratio 3.42; LDL Cholesterol,Calculated 56.6 mg/dL (0.0-131.0); VLDL Calculation 23.4 mg/dL (5.00-40.00)
== END | disposition home or self-care (01) ==
LOC: LABWHC1 11:47
PROVIDERS: ATTEND Internal Medicine Cardiovascular Disease
DX: E78.2 Mixed hyperlipidemia (principal)
CPT/HCPCS: 36415; 80061; 84450; 84460

== ENCOUNTER → 2020-10-17 | Outpatient (CLI) | payer MEDICARE ==
--- NOTE | 2020-10-17 13:10 | CT ---
EXAMINATION TYPE: CT abdomen pelvis wo con DATE OF EXAM: 10/17/2020 COMPARISON: 10/30/2016 HISTORY: 80-year-old male N10, Acute pyelonephritis CT DLP: 1385.8 mGycm. Automated exposure control for dose reduction was used. TECHNIQUE: Contiguous axial scanning of the abdomen and pelvis without IV contrast. Coronal and sagit eliseo reconstructions performed. FINDINGS: Heart is borderline enlarged. Extensive coronary artery calcifications are present. Mildly aneurysmal ascending aorta 4.0 cm. Mild to moderate bilateral gynecomastia. Emphysematous change of the visuali zed lower lungs with dependent atelectasis. Small hiatal hernia. Liver enlarged at 21.4 cm. Small layering gallstones measuring up to 9 mm. No abnormal gallbladder di stention. Adrenal glands, left kidney, and pancreas show no gross evidence by noncontrast CT. Spleen enlarged at 14.9 cm. Calcifications of the right renal hilum were present back on 10/30/2016 as well and are suggestive of vascular calcifications. No hydronephrosis. Mild bilateral perinephric stranding/edema was present previously and could represent senescent vela e or chronic kidney disease. Vascular stent at the proximal left renal artery. Moderate spotty calcification throughout the abdominal aorta and visceral artery branches. Redemonstr ated infrarenal AAA currently measuring 4.5 cm versus 4.1 cm on 10/30/2016. 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 No dilated small bowel, free fluid, or free air. No mesenteric or retroperitoneal lymphadenopathy. While the appendix is not clearly identified, no secondary findings of acute appendicitis are seen in the right lower quadrant. Occasional scattered left-sided colonic diverticulosis, more extensive wit hin the sigmoid colon. No pericolonic inflammatory change. Moderate circumferential bladder wall thickening with a perivesicular fat stranding. No abnormal flui d collection in the pelvis or pelvic lymphadenopathy. Bones: Moderate to severe degenerative changes left hip and mild to moderate at the right hip. Hypert rophic facet arthropathy mid to lower lumbar spine with grade 1 anterolisthesis L5-S1 and grade 1 ret rolisthesis L2-L3. IMPRESSION: 1. Moderate circumferential bladder wall thickening with perivesicular fat stranding. Findings sugge st cystitis. 2. Calcifications at the right renal hilum were present back in 2017 suggesting vascular calcificati ons. No hydronephrosis on either side. Pyelonephritis is evaluated by CT on postcontrast delayed [facility] images. 3. Hepatosplenomegaly (liver 21.4 cm and spleen 14.9 cm). 4. Small hiatal hernia and left-sided colonic diverticulosis, greatest in the sigmoid colon. 5. Infrarenal AAA shows slight increase in size from 4.1 cm in 2017 and currently measuring 4.5 cm. Additional ectasia of the left common iliac artery at 1.9 cm.
== END | disposition home or self-care (01) ==
LOC: RADCTMAIN 12:25
PROVIDERS: ATTEND Family Medicine
DX: N32.89 Other specified disorders of bladder (principal); K44.9 Diaphragmatic hernia without obstruction or gangrene; K57.30 Diverticulosis of large intestine without perforation or abscess without bleeding; I71.4 Abdominal aortic aneurysm, without rupture; R16.2 Hepatomegaly with splenomegaly, not elsewhere classified
CPT/HCPCS: 74176

== ENCOUNTER 2020-10-19 19:59 | Emergency (ER) | payer MEDICARE ==
[2020-10-19 20:07] VITALS: TEMP 99.6
[2020-10-19] MEDS ORDERED: SODIUM CHLORIDE 0.9% 500 ML 500 ML IV STA (20:33)
[2020-10-19] MEDS ORDERED: MORPHINE SULFATE 2 MG/ML SYRINGE IVP STA ×2 (20:33→22:07)
[2020-10-19] MEDS ORDERED: ONDANSETRON 4 MG/2 ML VIAL IVP STA (20:33)
[2020-10-19 20:38] LABS: Appearance,Urine Cloudy (Clear); Bilirubin,Urine Negative (Negative); Blood,Urine Negative (Negative); Color,Urine Yellow; Glucose,Urine (UA) Negative (Negative); Hyaline Casts,Urine 1 /lpf (0-2); Ketones,Urine Negative (Negative); Leukocyte Esterase,Urine Large (Negative); Mucus,Urine Occasional /hpf; Nitrite,Urine Negative (Negative); PH, Urine 5.5 (5.0-8.0); Protein,Urine Trace (Negative); RBC,Urine 7 /hpf (0-5); Specific Gravity,Urine 1.014 (1.001-1.035); Squamous Epithelial Cell,Urine <1 /hpf (0-4); Urobilinogen,Urine <2.0 mg/dL (<2.0); WBC,Urine >182 /hpf (0-5)
--- NOTE | 2020-10-19 20:48 | ED ---
General Adult HPI - General Chief complaint: Urogenital Stated complaint: lots pain in back and neck Time Seen by Provider: 10/19/20 20:09 Source: patient Mode of arrival: wheelchair Limitations: no limitations - History of Present Illness Initial comments: 80-year-old male patient presents to the emergency department today for evaluation of urinary symptoms and back pain. Patient states that he has been having issues with urinary tract infection over the last couple months. He is on his third round of antibiotics. States he is having urinary frequency, urgency, dysuria, and dry as ago he did into the bilateral flank region and has been gradually worsening. States it's to the point where it's making it difficult for him to walk. He did see his primary care physician recently was given a prescription for Cefdinir and flexeril. Coming in today because his pain is worse. He did have outpatient CT scan of the abdomen and pelvis without contr ast. The back pain denies any radiation to his legs. Denies numbness or taking her into the lower extremity. Denies any saddle anesthesia or loss of bowel or bladder control. Denies saddle anesthesia. He denies any nausea or vomiting. Reports decreased appetite. Patient denies any recent rash, cough, shortness of breath, chest pain, constipation, back pain, numbness, tingling, dizziness, weakness, headache, visual changes, or any other complaints. - Related Data Home Medications Medication Instructions Recorded Confirmed Aspirin EC [Ecotrin Low Dose] 81 mg PO DAILY 10/30/16 10/19/20 Atorvastatin [Lipitor] 40 mg PO DAILY 10/30/16 10/19/20 Isosorbide Mononitrate ER [Imdur] 60 mg PO DAILY 10/30/16 10/19/20 Metoprolol Succinate (ER) [Toprol 50 mg PO DAILY 10/30/16 10/19/20 Xl] Nitroglycerin Sl Tabs [Nitrostat] 0.4 mg SL Q5M PRN 10/30/16 10/19/20 Omeprazole 20 mg PO DAILY 10/30/16 10/19/20 Levothyroxine Sodium [Synthroid] 50 mcg PO DAILY 01/13/18 10/19/20 Caclium 600mg W/Vitamin D3 1 tab PO DAILY 10/19/20 10/19/20 Cefdinir [Omnicef] 300 mg PO Q12H 10/19/20 10/19/20 Cyclobenzaprine [Flexeril] 10 mg PO TID PRN 10/19/20 10/19/20 Fish Oil 600mg 1 cap PO DAILY 10/19/20 10/19/20 Niacin (Inositol Niacinate) 1,000 mg PO DAILY 10/19/20 10/19/20 [Niacin 500 mg Capsule] Previous Rx's Medication Instructions Recorded Acetaminophen-Codeine 300-30mg 1 tab PO Q6H PRN #12 tablet 10/19/20 [Tylenol #3] Allergies Allergy/AdvReac Type Severity Reaction Status Date / Time No Known Allergies Allergy Verified 10/19/20 20:07 Review of Systems ROS Statement: Those systems with pertinent positive or pertinent negative responses have been documented in the HPI. ROS Other: All systems not noted in ROS Statement are negative. Past Medical History Past Medical History: Coronary Artery Disease (CAD), Hyperlipidemia, Hypertension, Thyroid Disorder Additional Past Medical History / Comment(s): cardiac stents, AAA (states Dr is watching), hx kidney stones, hx of colon polyps History of Any Multi-Drug Resistant Organisms: None Reported Past Surgical History: Heart Catheterization With Stent, Tonsillectomy Additional Past Surgical History / Comment(s): 6 stents, charity cataracts Past Anesthesia/Blood Transfusion Reactions: No Reported Reaction Date of Last Stent Placement:: unknown Past Psychological History: No Psychological Hx Reported Smoking Status: Former smoker Past Alcohol Use History: None Reported Past Drug Use History: None Reported - Past Family History Mother Family Medical History: No Reported History General Exam Limitations: no limitations General appearance: alert, in no apparent distress, other (This is a well- developed, well-nourished adult male patient in no acute distress.Signs upon presentation are temperature 99.6F, pulse 96, respirations 20, blood pressure 127/79, pulse ox 97% on room air.) Eye exam: Present: normal appearance, PERRL, EOMI. Absent: scleral icterus, conjunctival injection, periorbital swelling ENT exam: Present: normal exam, normal oropharynx, mucous membranes moist Respiratory exam: Present: normal lung sounds bilaterally. Absent: respiratory distress, wheezes, rales, rhonchi, stridor Cardiovascular Exam: Present: regular rate, normal rhythm, normal heart sounds. Absent: systolic murmur, diastolic murmur, rubs, gallop, clicks GI/Abdominal exam: Present: soft, normal bowel sounds. Absent: distended, tenderness, guarding, rebound, rigid Back exam: Present: normal inspection, CVA tenderness (R), CVA tenderness (L) Neurological exam: Present: alert, oriented X3, CN II-XII intact Psychiatric exam: Present: normal affect, normal mood Skin exam: Present: warm, dry, intact, normal color. Absent: rash Course Vital Signs 10/19/20 10/19/20 20:03 22:31 Temperature 99.6 F Pulse Rate 96 87 Respiratory 20 18 Rate Blood Pressure 127/79 119/72 O2 Sat by Pulse 97 94 L Oximetry Medical Decision Making - Medical Decision Making 80-year-old male patient presents to the emergency department today for evaluation of back pain, dysuria, urinary urgency and frequency. Physical examination did reveal bilateral CVA tenderness. Urinalysis was positive for infection. Labs are unremarkable. He is afebrile. Patient did have outpatient computed tomography scan of the abdomen and pelvis yesterday, review of the scan shows no evidence for pyelonephritis on CT. He did have evidence for cystitis. Patient's culture and susceptibility was also reviewed and showed his current antibiotic Cefdinir does cover his infection. Did discuss findings and results with the patient. He does feel comfortable being discharged home at this time to continue this antibiotic. He was informed of elevated blood sugar and his labs on the previous 2 occasions, he is urged to discuss this with his primary care physician. He is instructed to call his physician on Wednesday for an appointment. Return parameters were discussed in detail. He verbalizes understanding and agrees with this plan. Case discussed with my attending Dr. Salinas. - Lab Data Result diagrams: 10/19/20 20:53 10/19/20 20:53 Lab Results 10/19/20 10/19/20 10/19/20 Range/Units 20:30 20:53 20:53 WBC 10.4 (3.8-10.6) k/uL RBC 4.56 (4.30-5.90) m/uL Hgb 13.5 (13.0-17.5) gm/dL Hct 40.5 (39.0-53.0) % MCV 88.7 (80.0-100.0) fL MCH 29.7 (25.0-35.0) pg MCHC 33.4 (31.0-37.0) g/dL RDW 14.7 (11.5-15.5) % Plt Count 215 (150-450) k/uL MPV 7.0 Neutrophils % 76 % Lymphocytes % 15 % Monocytes % 7 % Eosinophils % 1 % Basophils % 1 % Neutrophils # 7.9 H (1.3-7.7) k/uL Lymphocytes # 1.5 (1.0-4.8) k/uL Monocytes # 0.7 (0-1.0) k/uL Eosinophils # 0.1 (0-0.7) k/uL Basophils # 0.1 (0-0.2) k/uL Sodium 137 (137-145) mmol/L Potassium 4.2 (3.5-5.1) mmol/L Chloride 103 (98-107) mmol/L Carbon Dioxide 22 (22-30) mmol/L Anion Gap 12 mmol/L BUN 17 (9-20) mg/dL Creatinine 0.68 (0.66-1.25) mg/dL Est GFR (CKD-EPI)AfAm >90 (>60 ml/min/1.73 sqM) Est GFR (CKD-EPI)NonAf >90 (>60 ml/min/1.73 sqM) Glucose 203 H (74-99) mg/dL Plasma Lactic Acid Erik (0.7-2.0) mmol/L Calcium 9.4 (8.4-10.2) mg/dL Total Bilirubin 1.1 (0.2-1.3) mg/dL AST 25 (17-59) U/L ALT 21 (4-49) U/L Alkaline Phosphatase 95 (38-126) U/L Total Protein 8.1 (6.3-8.2) g/dL Albumin 4.2 (3.5-5.0) g/dL Lipase 327 H (23-300) U/L Urine Color Yellow Urine Appearance Cloudy (Clear) Urine pH 5.5 (5.0-8.0) Ur Specific [place] 1.014 (1.001-1.035) Urine Protein Trace H (Negative) Urine Glucose (UA) Negative (Negative) Urine Ketones Negative (Negative) Urine Blood Negative (Negative) Urine Nitrite Negative (Negative) Urine Bilirubin Negative (Negative) Urine Urobilinogen <2.0 (<2.0) mg/dL Ur Leukocyte Esterase Large H (Negative) Urine RBC 7 H (0-5) /hpf Urine WBC >182 H (0-5) /hpf Urine WBC Clumps Moderate H (None) /hpf Ur Squamous Epith Cells <1 (0-4) /hpf Hyaline Casts 1 (0-2) /lpf Urine Mucus Occasional H (None) /hpf 10/19/20 Range/Units 20:53 WBC (3.8-10.6) k/uL RBC (4.30-5.90) m/uL Hgb (13.0-17.5) gm/dL Hct (39.0-53.0) % MCV (80.0-100.0) fL MCH (25.0-35.0) pg MCHC (31.0-37.0) g/dL RDW (11.5-15.5) % Plt Count (150-450) k/uL MPV Neutrophils % % Lymphocytes % % Monocytes % % Eosinophils % % Basophils % % Neutrophils # (1.3-7.7) k/uL Lymphocytes # (1.0-4.8) k/uL Monocytes # (0-1.0) k/uL Eosinophils # (0-0.7) k/uL Basophils # (0-0.2) k/uL Sodium (137-145) mmol/L Potassium (3.5-5.1) mmol/L Chloride (98-107) mmol/L Carbon Dioxide (22-30) mmol/L Anion Gap mmol/L BUN (9-20) mg/dL Creatinine (0.66-1.25) mg/dL Est GFR (CKD-EPI)AfAm (>60 ml/min/1.73 sqM) Est GFR (CKD-EPI)NonAf (>60 ml/min/1.73 sqM) Glucose (74-99) mg/dL Plasma Lactic Acid Erik 1.5 (0.7-2.0) mmol/L Calcium (8.4-10.2) mg/dL Total Bilirubin (0.2-1.3) mg/dL AST (17-59) U/L ALT (4-49) U/L Alkaline Phosphatase (38-126) U/L Total Protein (6.3-8.2) g/dL Albumin (3.5-5.0) g/dL Lipase (23-300) U/L Urine Color Urine Appearance (Clear) Urine pH (5.0-8.0) Ur Specific [place] (1.001-1.035) Urine Protein (Negative) Urine Glucose (UA) (Negative) Urine Ketones (Negative) Urine Blood (Negative) Urine Nitrite (Negative) Urine Bilirubin (Negative) Urine Urobilinogen (<2.0) mg/dL Ur Leukocyte Esterase (Negative) Urine RBC (0-5) /hpf Urine WBC (0-5) /hpf Urine WBC Clumps (None) /hpf Ur Squamous Epith Cells (0-4) /hpf Hyaline Casts (0-2) /lpf Urine Mucus (None) /hpf - Radiology Data Radiology results: report reviewed Disposition Clinical Impression: Back pain, Urinary tract infection Disposition: HOME SELF-CARE Condition: Good Instructions (If sedation given, give patient instructions): Urinary Tract Infection in Men (ED), Back Pain (ED) Additional Instructions: Increase fluids. Call your primary care physician first thing Wednesday morning to discuss elevated blood sugars and enlarging aneurysm. Return to the emergency department for any new, worsening, or concerning symptoms. Prescriptions: Acetaminophen-Codeine 300-30mg [Tylenol #3] 1 tab PO Q6H PRN #12 tablet PRN Reason: Pain Is patient prescribed a controlled substance at d/c from ED?: No Referrals: Oswald Ashraf MD [Primary Care Provider] - 1-2 days Time of Disposition: 22:09
[2020-10-19 21:15] LABS: Basophils # (A) 0.1 k/uL (0-0.2); Basophils % (A) 1 %; Eosinophils # (A) 0.1 k/uL (0-0.7); Eosinophils % (A) 1 %; HCT 40.5 % (39.0-53.0); HGB 13.5 gm/dL (13.0-17.5); Lymphocytes # (A) 1.5 k/uL (1.0-4.8); Lymphocytes % (A) 15 %; MCH 29.7 pg (25.0-35.0); MCHC 33.4 g/dL (31.0-37.0); MCV 88.7 fL (80.0-100.0); Monocytes # (A) 0.7 k/uL (0-1.0); Monocytes % (A) 7 %; Neutrophils # (A) 7.9 k/uL (1.3-7.7); Neutrophils % (A) 76 %; Platelet Count 215 k/uL (150-450); RBC 4.56 m/uL (4.30-5.90); RDW 14.7 % (11.5-15.5); WBC 10.4 k/uL (3.8-10.6)
[2020-10-19 21:24] LABS: ALT 21 U/L (4-49); AST 25 U/L (17-59); African American GFR (CKD) >90 (>60 ml/min/1.73 sqM); Albumin 4.2 g/dL (3.5-5.0); Alkaline Phosphatase 95 U/L (38-126); Anion Gap 12 mmol/L; Blood Urea Nitrogen 17 mg/dL (9-20); Calcium 9.4 mg/dL (8.4-10.2); Carbon Dioxide 22 mmol/L (22-30); Chloride 103 mmol/L (98-107); Glucose 203 mg/dL (74-99); Lipase 327 U/L (23-300); Non-African American GFR(CKD) >90 (>60 ml/min/1.73 sqM); Potassium 4.2 mmol/L (3.5-5.1); Sodium 137 mmol/L (137-145); Total Bilirubin 1.1 mg/dL (0.2-1.3); Total Protein 8.1 g/dL (6.3-8.2)
[2020-10-19 22:32] VITALS: BP 119/72; PULSE 87; RESP 18
== END 2020-10-19 22:37 | disposition home or self-care (01) ==
LOC: EC 19:59
DX: N30.90 Cystitis, unspecified without hematuria (principal); M54.9 Dorsalgia, unspecified; R73.9 Hyperglycemia, unspecified; Z87.891 Personal history of nicotine dependence; E07.9 Disorder of thyroid, unspecified; Z87.442 Personal history of urinary calculi; I10 Essential (primary) hypertension; E78.5 Hyperlipidemia, unspecified; Z79.899 Other long term (current) drug therapy; Z79.82 Long term (current) use of aspirin; Z79.890 Hormone replacement therapy
CPT/HCPCS: 36415; 80053; 83605; 83690; 85025; 81001; 87040; 87086; 99283; 96374 ×2; 96376; 96361; J2405; J2270

== ENCOUNTER 2020-10-21 10:57 | Inpatient (IN) | payer MEDICARE ==
[2020-10-21] MEDS ORDERED: MORPHINE SULFATE 4 MG/ML SYRINGE IVP STA (12:39)
[2020-10-21 12:42] LABS: Basophils # (A) 0.1 k/uL (0-0.2); Basophils % (A) 1 %; Eosinophils # (A) 0.1 k/uL (0-0.7); Eosinophils % (A) 1 %; HCT 38.3 % (39.0-53.0); HGB 13.5 gm/dL (13.0-17.5); Lymphocytes # (A) 1.8 k/uL (1.0-4.8); Lymphocytes % (A) 18 %; MCH 30.9 pg (25.0-35.0); MCHC 35.4 g/dL (31.0-37.0); MCV 87.2 fL (80.0-100.0); Mean Platelet Volume 7.1; Monocytes # (A) 0.7 k/uL (0-1.0); Monocytes % (A) 7 %; Neutrophils # (A) 7.2 k/uL (1.3-7.7); Neutrophils % (A) 72 %; Platelet Count 232 k/uL (150-450); RBC 4.39 m/uL (4.30-5.90); RDW 13.9 % (11.5-15.5); WBC 9.9 k/uL (3.8-10.6)
[2020-10-21 12:43] LABS: INR 0.9 (<1.2); Partial Thromboplastin Time 23.2 sec (22.0-30.0); Prothrombin Time 10.1 sec (9.0-12.0)
[2020-10-21 12:45] LABS: ALT 24 U/L (4-49); AST 29 U/L (17-59); African American GFR (CKD) >90 (>60 ml/min/1.73 sqM); Albumin 3.6 g/dL (3.5-5.0); Alkaline Phosphatase 93 U/L (38-126); Anion Gap 11 mmol/L; Blood Urea Nitrogen 20 mg/dL (9-20); Carbon Dioxide 22 mmol/L (22-30); Chloride 103 mmol/L (98-107); Creatine Kinase 38 U/L (55-170); Glucose 160 mg/dL (74-99); Non-African American GFR(CKD) >90 (>60 ml/min/1.73 sqM); Potassium 4.2 mmol/L (3.5-5.1); Sodium 136 mmol/L (137-145); Total Bilirubin 1.4 mg/dL (0.2-1.3); Total Protein 7.4 g/dL (6.3-8.2)
--- NOTE | 2020-10-21 13:23 | CT ---
EXAMINATION TYPE: CT brain wo con DATE OF EXAM: 10/21/2020 COMPARISON: None HISTORY: 80-year-old male left leg weakness TECHNIQUE: Examination was done in axial plane without intravenous contrast. Coronal and sagittal r econstructions performed. CT DLP: 1103.4 mGycm Automated exposure control for dose reduction was used. FINDINGS: There is no evidence of acute intracranial hemorrhage, acute ischemic changes, mass, mass-effect, or extra-axial fluid collection. There is no effacement of cerebral sulci or basal subarachnoid cister ns. There is no hydrocephalus. There is no midline shift. Braun-white matter distinction is preserv ed. Some focal cortical encephalomalacia along the right frontal convexity. Moderate patchy and confluent white matter hypodensities in both cerebral hemispheres. Old lacunar infarcts in the bilateral basal ganglia. Trace mucosal thickening scattered throughout the ethmoid air cells. Orbits and globes are intact. Ma stoid air cells well pneumatized. IMPRESSION: Small area of old cortical encephalomalacia right frontal lobe related to prior vascular or traumatic insult. Moderate patchy and confluent burden of chronic small vessel ischemic disease. No acute intr acranial abnormality seen.
--- NOTE | 2020-10-21 13:30 | XR ---
EXAMINATION TYPE: XR pelvis AP view DATE OF EXAM: 10/21/2020 CLINICAL HISTORY: Pelvic pain and left leg weakness. TECHNIQUE: 2 AP views of the pelvis are obtained. COMPARISON: CT abdomen and pelvis 4 days ago. FINDINGS: There is no acute fracture/dislocation evident in the pelvis. Advanced axial joint space l oss left hip redemonstrated with moderate head neck collar spurring. Moderate axial joint space loss right hip. Right-sided pelvic phlebolith. Left-sided vascular calcification. IMPRESSION: As above. No significant change from recent CT.
--- NOTE | 2020-10-21 13:33 | CT ---
EXAMINATION TYPE: CT lumbar spine wo con DATE OF EXAM: 10/21/2020 COMPARISON: None HISTORY: 80-year-old male back pain, left leg weakness TECHNIQUE: Contiguous axial scanning of the lumbar spine without IV contrast. Coronal and sagittal re constructions performed. CT DLP: 1555.4 mGycm Automated exposure control for dose reduction was used. FINDINGS: Prominent dependent atelectasis within the visualized lung bases. Infrarenal AAA measuring 4.5 cm. On the ultrasound of 02/27/2019, this was measured at 4.6 cm, likely no significant change. Ectatic distal abdominal aorta are 2.7 cm and mildly aneurysmal left common iliac artery at 1.9 cm. Marked osteopenia. Vertebral body heights are preserved. Grade 1 anterolisthesis at T12-L1 and L5-S1. Grade 1 retrolisthesis at L2-L3 and L3-L4. Degenerative thinning of the interspinous ligaments in the lower lumbar spine. Hypertrophic facet arthropathy mid to lower lumbar spine, severe at L4-L5 and L5-S1. There is bony br idging ankylosis of the facet joints at L5-S1. Mild multilevel degenerative disc disease. Bulging discs mid to lower lumbar spine. Moderate disc hei ght loss at L2-L3. Changes result in mild spinal canal stenosis at L2-L3. At L4-L5, additional mild spinal canal stenosis secondary to facet arthropathy, ligamentum flavum thi ckening, and bulging disc. On the left, variable mild neuroforaminal stenoses throughout. However, left lateral disc osteophyte complex at L5-S1 may impinge the extraforaminal left L5 nerve root. On the right, variable mild neuroforaminal narrowing throughout. IMPRESSION: 1. MILD TO MODERATE MULTILEVEL DEGENERATIVE DISC DISEASE. HYPERTROPHIC FACET ARTHROPATHY. BAASTRUP'S DISEASE. 2. 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 3. CHANGES RESULTING IN OVERALL MILD SPINAL CANAL STENOSIS AT L2-L3 AND L4-L5. 4. VIABLE MILD BILATERAL NEUROFORAMINAL STENOSIS. HOWEVER, A LEFT LATERAL DISC OSTEOPHYTE COMPLEX AT L5-S1 MAY IMPINGE THE EXTRAFORAMINAL LEFT L5 NERVE ROOT. 5. INCIDENTAL 4.5 CM AAA. THIS WAS MEASURED AT 4.6 CM ON THE PATIENT'S 2018 ULTRASOUND, LIKELY NO SIG NIFICANT CHANGE. 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
--- NOTE | 2020-10-21 13:35 | XR ---
EXAMINATION TYPE: XR KUB DATE OF EXAM: 10/21/2020 Comparison: 10/30/2016 Clinical History: 80-year-old male constipation Findings: Supine imaging limited for assessment of free air. Nonobstructive bowel gas pattern. Moderate overall stool burden, greatest in the right side of the abdomen. Nonobstructive bowel gas pattern. No dilate d small bowel loops. Some calcifications are present in the right upper quadrant measuring 1.3 and 1.0 cm compatible with gallstones. Impression: Underlying cholelithiasis with gallstones measuring up to 1.3 cm. Nonobstructive bowel gas pattern. M oderate stool burden, greatest in the right side of the abdomen.
--- NOTE | 2020-10-21 13:38 | XR ---
EXAMINATION TYPE: XR shoulder complete BILAT DATE OF EXAM: 10/21/2020 COMPARISON: NONE HISTORY: 80-year-old male with pain TECHNIQUE: 3 views each side FINDINGS: Moderate degenerative change at the bilateral SI joints. Marginal spurring and capsular hypertrophy i s greater on the right side but joint space narrowing is greater on the left side. Subacromial space is preserved bilaterally. Mild irregularity of the right greater tuberosity. No acute fracture, sublu xation, dislocation. IMPRESSION: 1. Moderate bilateral AC joint OA, greater degree of marginal spurring and capsular hypertrophy on th e right side. 2. Some bony irregularity of the right greater tuberosity suggests underlying chronic rotator cuff te ndinopathy. 3. No acute osseous abnormality seen.
--- NOTE | 2020-10-21 15:05 | ED ---
Weakness HPI - General Chief complaint: Weakness Stated complaint: constipation/urinary issues/revisit Time Seen by Provider: 10/21/20 11:25 Source: patient Mode of arrival: ambulatory Limitations: no limitations - History of Present Illness Initial comments: 80-year-old male presents emergency Department with reported body aches, and ability to ambulate and urinary tract infection. Patient was seen on Wednesday for similar complaint and was diagnosed with a urinary tract infection. States that this is his third infection within the past month. He is currently on cefepime. Has been taking the medication as directed but continues to have weakness. Patient denies any abdominal or flank pain. It has had a low-grade fever. Patient has had generalized weakness and states he's had difficulties ambulating. He reports that he has been dragging his left leg because of left leg pain and back pain. Also reports a bilateral shoulder pain with inability to lift his arms over his head. Patient also admits to a headache. No neck pain. No other alleviating, precipitating or modifying factors - Related Data Home Medications Medication Instructions Recorded Confirmed Aspirin EC [Ecotrin Low Dose] 81 mg PO DAILY 10/30/16 10/21/20 Atorvastatin [Lipitor] 40 mg PO DAILY 10/30/16 10/21/20 Isosorbide Mononitrate ER [Imdur] 60 mg PO DAILY 10/30/16 10/21/20 Metoprolol Succinate (ER) [Toprol 50 mg PO DAILY 10/30/16 10/21/20 Xl] Nitroglycerin Sl Tabs [Nitrostat] 0.4 mg SL Q5M PRN 10/30/16 10/21/20 Omeprazole 20 mg PO DAILY 10/30/16 10/21/20 Levothyroxine Sodium [Synthroid] 50 mcg PO DAILY 01/13/18 10/21/20 Caclium 600mg W/Vitamin D3 1 tab PO DAILY 10/19/20 10/21/20 Cefdinir [Omnicef] 300 mg PO Q12H 10/19/20 10/21/20 Cyclobenzaprine [Flexeril] 10 mg PO TID PRN 10/19/20 10/21/20 Fish Oil 600mg 1 cap PO DAILY 10/19/20 10/21/20 Niacin (Inositol Niacinate) 1,000 mg PO DAILY 10/19/20 10/21/20 [Niacin 500 mg Capsule] Previous Rx's Medication Instructions Recorded Acetaminophen-Codeine 300-30mg 1 tab PO Q6H PRN #12 tablet 10/19/20 [Tylenol #3] Allergies Allergy/AdvReac Type Severity Reaction Status Date / Time No Known Allergies Allergy Verified 10/21/20 13:28 Review of Systems ROS Statement: Those systems with pertinent positive or pertinent negative responses have been documented in the HPI. ROS Other: All systems not noted in ROS Statement are negative. Past Medical History Past Medical History: Coronary Artery Disease (CAD), Hyperlipidemia, Hypertension, Thyroid Disorder Additional Past Medical History / Comment(s): cardiac stents, AAA (states Dr is watching), hx kidney stones, hx of colon polyps History of Any Multi-Drug Resistant Organisms: None Reported Past Surgical History: Heart Catheterization With Stent, Tonsillectomy Additional Past Surgical History / Comment(s): 6 stents, charity cataracts Past Anesthesia/Blood Transfusion Reactions: No Reported Reaction Date of Last Stent Placement:: unknown Past Psychological History: No Psychological Hx Reported Smoking Status: Former smoker Past Alcohol Use History: None Reported Past Drug Use History: None Reported - Past Family History Mother Family Medical History: No Reported History General Exam Limitations: no limitations Course Vital Signs 10/21/20 10/21/20 11:02 11:46 Temperature 98.1 F Pulse Rate 92 85 Respiratory 18 22 Rate Blood Pressure 117/72 129/71 O2 Sat by Pulse 97 95 Oximetry Medical Decision Making - Medical Decision Making Upon arrival the patient is placed into room 22. Thorough history and physical exam was performed. IV is established and the patient is given 4 mg of morphine for pain control. Laboratory studies are conducted. ESR hiatal 100. Glucose 160. Urinalysis continues to demonstrate moderate leukocyte esterase and 20/blood cells. Covid not detected. Blood cultures obtained and the patient initiated on IV antibiotics. Patient sent over for multiple imaging modalities. CT of the brain is performed as well as C-spine because the patient reports he is dragging his left leg. Demonstrates small area of old cortical and supple malacia of the right frontal lobe. Patient is unaware of previous vascular i nsult. Lumbar spine x-ray also demonstrates multiple areas of degenerative disc disease. Pelvic x-ray demonstrates no significant change from recent CT which demonstrated some joint space loss. KUB does demonstrates a nonobstructive gas pattern with moderate stool Birden. 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 Results are discussed with the patient. I did speak with Dr. Denson who agreed to admit the patient on behalf of Dr. Ashraf. I will consult neurology and infectious disease. Patient is currently awaiting a bed on the floor - Lab Data Result diagrams: 10/21/20 12:09 10/21/20 12:09 Lab Results 10/21/20 10/21/20 10/21/20 Range/Units 12:09 12:09 12:09 WBC 9.9 (3.8-10.6) k/uL RBC 4.39 (4.30-5.90) m/uL Hgb 13.5 (13.0-17.5) gm/dL Hct 38.3 L (39.0-53.0) % MCV 87.2 (80.0-100.0) fL MCH 30.9 (25.0-35.0) pg MCHC 35.4 (31.0-37.0) g/dL RDW 13.9 (11.5-15.5) % Plt Count 232 (150-450) k/uL MPV 7.1 Neutrophils % 72 % Lymphocytes % 18 % Monocytes % 7 % Eosinophils % 1 % Basophils % 1 % Neutrophils # 7.2 (1.3-7.7) k/uL Lymphocytes # 1.8 (1.0-4.8) k/uL Monocytes # 0.7 (0-1.0) k/uL Eosinophils # 0.1 (0-0.7) k/uL Basophils # 0.1 (0-0.2) k/uL ESR (0-15) mm/hr PT 10.1 (9.0-12.0) sec INR 0.9 (<1.2) APTT 23.2 (22.0-30.0) sec Sodium 136 L (137-145) mmol/L Potassium 4.2 (3.5-5.1) mmol/L Chloride 103 (98-107) mmol/L Carbon Dioxide 22 (22-30) mmol/L Anion Gap 11 mmol/L BUN 20 (9-20) mg/dL Creatinine 0.71 (0.66-1.25) mg/dL Est GFR (CKD-EPI)AfAm >90 (>60 ml/min/1.73 sqM) Est GFR (CKD-EPI)NonAf >90 (>60 ml/min/1.73 sqM) Glucose 160 H (74-99) mg/dL Plasma Lactic Acid Erik (0.7-2.0) mmol/L Calcium 9.0 (8.4-10.2) mg/dL Magnesium 2.0 (1.6-2.3) mg/dL Total Bilirubin 1.4 H (0.2-1.3) mg/dL AST 29 (17-59) U/L ALT 24 (4-49) U/L Alkaline Phosphatase 93 (38-126) U/L Creatine Kinase 38 L (55-170) U/L Troponin I (0.000-0.034) ng/mL Total Protein 7.4 (6.3-8.2) g/dL Albumin 3.6 (3.5-5.0) g/dL TSH 3.920 (0.465-4.680) mIU/L Urine Color Urine Appearance (Clear) Urine pH (5.0-8.0) Ur Specific [place] (1.001-1.035) Urine Protein (Negative) Urine Glucose (UA) (Negative) Urine Ketones (Negative) Urine Blood (Negative) Urine Nitrite (Negative) Urine Bilirubin (Negative) Urine Urobilinogen (<2.0) mg/dL Ur Leukocyte Esterase (Negative) Urine RBC (0-5) /hpf Urine WBC (0-5) /hpf Urine Bacteria (None) /hpf Hyaline Casts (0-2) /lpf Urine Mucus (None) /hpf Coronavirus (PCR) (Not Detectd) 10/21/20 10/21/20 10/21/20 Range/Units 12:09 12:09 12:09 WBC (3.8-10.6) k/uL RBC (4.30-5.90) m/uL Hgb (13.0-17.5) gm/dL Hct (39.0-53.0) % MCV (80.0-100.0) fL MCH (25.0-35.0) pg MCHC (31.0-37.0) g/dL RDW (11.5-15.5) % Plt Count (150-450) k/uL MPV Neutrophils % % Lymphocytes % % Monocytes % % Eosinophils % % Basophils % % Neutrophils # (1.3-7.7) k/uL Lymphocytes # (1.0-4.8) k/uL Monocytes # (0-1.0) k/uL Eosinophils # (0-0.7) k/uL Basophils # (0-0.2) k/uL ESR (0-15) mm/hr PT (9.0-12.0) sec INR (<1.2) APTT (22.0-30.0) sec Sodium (137-145) mmol/L Potassium (3.5-5.1) mmol/L Chloride (98-107) mmol/L Carbon Dioxide (22-30) mmol/L Anion Gap mmol/L BUN (9-20) mg/dL Creatinine (0.66-1.25) mg/dL Est GFR (CKD-EPI)AfAm (>60 ml/min/1.73 sqM) Est GFR (CKD-EPI)NonAf (>60 ml/min/1.73 sqM) Glucose (74-99) mg/dL Plasma Lactic Acid Erik 1.4 (0.7-2.0) mmol/L Calcium (8.4-10.2) mg/dL Magnesium (1.6-2.3) mg/dL Total Bilirubin (0.2-1.3) mg/dL AST (17-59) U/L ALT (4-49) U/L Alkaline Phosphatase (38-126) U/L Creatine Kinase (55-170) U/L Troponin I <0.012 (0.000-0.034) ng/mL Total Protein (6.3-8.2) g/dL Albumin (3.5-5.0) g/dL TSH (0.465-4.680) mIU/L Urine Color Urine Appearance (Clear) Urine pH (5.0-8.0) Ur Specific [place] (1.001-1.035) Urine Protein (Negative) Urine Glucose (UA) (Negative) Urine Ketones (Negative) Urine Blood (Negative) Urine Nitrite (Negative) Urine Bilirubin (Negative) Urine Urobilinogen (<2.0) mg/dL Ur Leukocyte Esterase (Negative) Urine RBC (0-5) /hpf Urine WBC (0-5) /hpf Urine Bacteria (None) /hpf Hyaline Casts (0-2) /lpf Urine Mucus (None) /hpf Coronavirus (PCR) Not Detected (Not Detectd) 10/21/20 10/21/20 Range/Units 13:49 14:45 WBC (3.8-10.6) k/uL RBC (4.30-5.90) m/uL Hgb (13.0-17.5) gm/dL Hct (39.0-53.0) % MCV (80.0-100.0) fL MCH (25.0-35.0) pg MCHC (31.0-37.0) g/dL RDW (11.5-15.5) % Plt Count (150-450) k/uL MPV Neutrophils % % Lymphocytes % % Monocytes % % Eosinophils % % Basophils % % Neutrophils # (1.3-7.7) k/uL Lymphocytes # (1.0-4.8) k/uL Monocytes # (0-1.0) k/uL Eosinophils # (0-0.7) k/uL Basophils # (0-0.2) k/uL ESR 100 H (0-15) mm/hr PT (9.0-12.0) sec INR (<1.2) APTT (22.0-30.0) sec Sodium (137-145) mmol/L Potassium (3.5-5.1) mmol/L Chloride (98-107) mmol/L Carbon Dioxide (22-30) mmol/L Anion Gap mmol/L BUN (9-20) mg/dL Creatinine (0.66-1.25) mg/dL Est GFR (CKD-EPI)AfAm (>60 ml/min/1.73 sqM) Est GFR (CKD-EPI)NonAf (>60 ml/min/1.73 sqM) Glucose (74-99) mg/dL Plasma Lactic Acid Erik (0.7-2.0) mmol/L Calcium (8.4-10.2) mg/dL Magnesium (1.6-2.3) mg/dL Total Bilirubin (0.2-1.3) mg/dL AST (17-59) U/L ALT (4-49) U/L Alkaline Phosphatase (38-126) U/L Creatine Kinase (55-170) U/L Troponin I (0.000-0.034) ng/mL Total Protein (6.3-8.2) g/dL Albumin (3.5-5.0) g/dL TSH (0.465-4.680) mIU/L Urine Color Yellow Urine Appearance Clear (Clear) Urine pH 5.5 (5.0-8.0) Ur Specific [place] 1.016 (1.001-1.035) Urine Protein Trace H (Negative) Urine Glucose (UA) Negative (Negative) Urine Ketones Negative (Negative) Urine Blood Negative (Negative) Urine Nitrite Negative (Negative) Urine Bilirubin Negative (Negative) Urine Urobilinogen <2.0 (<2.0) mg/dL Ur Leukocyte Esterase Moderate H (Negative) Urine RBC 2 (0-5) /hpf Urine WBC 24 H (0-5) /hpf Urine Bacteria Rare H (None) /hpf Hyaline Casts 3 H (0-2) /lpf Urine Mucus Occasional H (None) /hpf Coronavirus (PCR) (Not Detectd) Disposition Clinical Impression: Urinary tract infection, Inability to walk, Failure of outpatient treatment Disposition: ADMITTED IP TO THIS [facility] Condition: Stable Is patient prescribed a controlled substance at d/c from ED?: No Referrals: Oswald Ashraf MD [Primary Care Provider] - 1-2 days Decision to Admit Reason: Admit from EC Decision Date: 10/21/20 Decision Time: 15:31
[2020-10-21 15:14] LABS: Appearance,Urine Clear (Clear); Bacteria,Urine Rare /hpf; Bilirubin,Urine Negative (Negative); Blood,Urine Negative (Negative); Color,Urine Yellow; Glucose,Urine (UA) Negative (Negative); Hyaline Casts,Urine 3 /lpf (0-2); Ketones,Urine Negative (Negative); Leukocyte Esterase,Urine Moderate (Negative); Mucus,Urine Occasional /hpf; Nitrite,Urine Negative (Negative); PH, Urine 5.5 (5.0-8.0); Protein,Urine Trace (Negative); RBC,Urine 2 /hpf (0-5); Specific Gravity,Urine 1.016 (1.001-1.035); Urobilinogen,Urine <2.0 mg/dL (<2.0); WBC,Urine 24 /hpf (0-5)
[2020-10-21] MEDS ORDERED: cefTRIAXone IN SWFI 1,000 MG/10 ML SYRINGE IVP STA (15:31)
[2020-10-21] MEDS ORDERED: NALOXONE 0.4 MG/ML 1 ML VIAL IV PRN (15:32)
[2020-10-21] MEDS ORDERED: CYCLOBENZAPRINE 10 MG TAB PO PRN (15:34)
[2020-10-21] MEDS: Acetaminophen-Codeine 300-30mg TAB PO PRN (17:36)
--- NOTE | 2020-10-21 19:03 | US ---
EXAMINATION TYPE: US renals and bladder DATE OF EXAM: 10/21/2020 COMPARISON: CT CLINICAL HISTORY: uti. UTI per order. EXAM MEASUREMENTS: Right Kidney: 11.5 x 6.2 x 5.4 cm Left Kidney: 11.9 x 5.9 x 5.7 cm Right Kidney: Normal tissue versus slightly hypoechoic area seen: 2.6 x 2.3 x 1.4 cm. Left Kidney: No hydronephrosis or masses seen Bladder: Limited, not fully distended. Bilateral Jets seen: Right jet seen at this time. IMPRESSION: Left ureteral jet was not visualized during the exam. There is no evidence of renal mass or obstructi on. Urinary bladder appears normal.
--- NOTE | 2020-10-21 19:11 | P.CNNES ---
History of Present Illness Consult date: 10/21/20 Requesting physician: Shawanda Espinoza Reason for Consult: acute left left weakness with abnormal ct finding History of Present Illness: This is a 80-year-old gentleman with medical history of right frontal stroke (unsure when), hyperlipidemia, hypertension, coronary artery disease status post stenting who presented emergency department on 10/21/2020 for her generalized weakness and pain. Per the patient he's been having generalized weakness for the last 5 days as well as pain. He stated that the today when he was walk-in he had difficulty raising his left leg since he had pain in the left groin region. He is also having difficulty raising both arms above the his head for the last 3 days. He does have the lower back pain but denies any radiation. He stated that he had this back pain for a while. He is also having shoulder pain. He denies of any numbness, difficulty getting his words out, difficulty swall owing. In the last 1-2 months he stated that when he watches TV he sees double after a prolonged period of time watching TV. He denies any drooping of the eyes. He has had 3 urinary tract infection last 1 month. As stated earlier the patient has history of stroke over the right frontal back that and that was notified to him about a year ago by his primary care physician but he stated the prior to the 2 weeks ago he was walking fine and had no difficulties walk-in. He start using the walker in the last basically 5 days. Per the patient's nurse and she stated that the patient has been having the difficulty getting his words out according to the daughter and that was noticed yesterday. Patient is on aspirin 81 mg as well as Lipitor 40 mg and he stated that he's been on it for years. Work-up in the hospital consisted of: Initial vital signs: Blood pressure of 117/72, heart rate of 92, respiratory of 18, temperature of 98.1 Fahrenheit, pulse ox of 97% room air. CT of the head is reported as small area of old cortical encephalomalacia over the right frontal lobe related to prior vascular or traumatic insults. Moderate patchy and confluent burden of chronic small vessel ischemic disease. No acute intracranial abnormality seen. CT lumbar's reported as mild to moderate multilevel degenerative disc disease at. Hypertrophic facet arthropathy. Baastrup's disease. 2. Degenerative grade 1 spondylolithiasis at the T12 to L1, L2 to L3, L3 to L4 and L5 to S1 that. Changes resulting in overall mild spinal canal stenosis at L2/L3 and L4 to L5. Viable mild bilateral neuroforaminal stenosis. However a left lateral disc osteophyte complex at L5 to S1 may impinge the extraforaminal left L5 nerve root. Incidental 4.5 cm abdominal aortic aneurysm. This was measured at 4.6 on the patient's 2019 ultrasound. ESR of 100. TSH of 3.9 and 20 which is normal. Urinalysis is leukocyte Estrace is moderate, urine white blood cells 24. [place] virus PCR is negative Patient had the shoulder x-ray bilaterally and it's reported as moderate bilateral before meals joint osteophyte right is greater degree of marginal spurring and capsular hypertrophy on the right side. Some bony irregularity of the right greater tuberosity suggest underlying chronic rotator cuff tendopathy. Review of Systems Review of system: The 12 point system was reviewed and apparent positive and negative per HPI. Past Medical History Past Medical History: Coronary Artery Disease (CAD), Hyperlipidemia, Hypertension, Thyroid Disorder Additional Past Medical History / Comment(s): cardiac stents, AAA (states Dr is watching), hx kidney stones, hx of colon polyps History of Any Multi-Drug Resistant Organisms: None Reported Past Surgical History: Heart Catheterization With Stent, Tonsillectomy Additional Past Surgical History / Comment(s): 6 stents, charity cataracts Past Anesthesia/Blood Transfusion Reactions: No Reported Reaction Date of Last Stent Placement:: unknown Past Psychological History: No Psychological Hx Reported Smoking Status: Former smoker Past Alcohol Use History: None Reported Past Drug Use History: None Reported - Past Family History Mother Family Medical History: No Reported History Medications and Allergies Home Medications Medication Instructions Recorded Confirmed Type Aspirin EC [Ecotrin Low Dose] 81 mg PO DAILY 10/30/16 10/21/20 History Atorvastatin [Lipitor] 40 mg PO DAILY 10/30/16 10/21/20 History Isosorbide Mononitrate ER [Imdur] 60 mg PO DAILY 10/30/16 10/21/20 History Metoprolol Succinate (ER) [Toprol 50 mg PO DAILY 10/30/16 10/21/20 History Xl] Nitroglycerin Sl Tabs [Nitrostat] 0.4 mg SL Q5M PRN 10/30/16 10/21/20 History Omeprazole 20 mg PO DAILY 10/30/16 10/21/20 History Levothyroxine Sodium [Synthroid] 50 mcg PO DAILY 01/13/18 10/21/20 History Acetaminophen-Codeine 300-30mg 1 tab PO Q6H PRN #12 tablet 10/19/20 10/21/20 Rx [Tylenol #3] Caclium 600mg W/Vitamin D3 1 tab PO DAILY 10/19/20 10/21/20 History Cefdinir [Omnicef] 300 mg PO Q12H 10/19/20 10/21/20 History Cyclobenzaprine [Flexeril] 10 mg PO TID PRN 10/19/20 10/21/20 History Fish Oil 600mg 1 cap PO DAILY 10/19/20 10/21/20 History Niacin (Inositol Niacinate) 1,000 mg PO DAILY 10/19/20 10/21/20 History [Niacin 500 mg Capsule] Allergies Allergy/AdvReac Type Severity Reaction Status Date / Time No Known Allergies Allergy Verified 10/21/20 13:28 Physical Examination - Vital Signs Vital Signs: Vital Signs Temp Pulse Pulse Resp BP BP Pulse Ox 10/21/20 17:04 97.9 F 85 16 144/78 94 L 10/21/20 16:26 98 F 81 18 145/79 94 L 10/21/20 11:46 85 22 129/71 95 10/21/20 11:02 98.1 F 92 18 117/72 97 Intake and Output 10/21/20 10/21/20 10/21/20 06:59 14:59 22:59 Other: Weight 120.202 kg GENERAL: The patient is lying in bed and is in moderate acute distress. CHEST: The heart rate is regular rate rhythm. No murmurs to auscultation. No carotid bruit bilaterally. LUNG: Clear to auscultation bilaterally no wheezing noted throughout. Not labored breathing. ABDOMEN/GI: Bowel sounds present in all 4 quadrants. No tenderness to palpation throughout. NEUROLOGICAL: Higher mental function: The patient is awake, alert, oriented to self, place and time. Patient is following commands. No aphasia and no neglect. Cranial nerves: The pupils are round, equal and reactive to light and accommodation. Visual wright are full to confrontation throughout. Extraocular movement is intact no nystagmus is noted. No ptosis upon upward gazed for 1 minute. Facial sensation is normal to touch throughout. The facial strength is normal throughout. Hearing is moderately decreased bilaterally to hand rub. Tongue is midline and moved [id number] without any difficulty. No dysarthria is noted. Shoulder shrug is limited because of patient's pain. Motor: The strength is hand doormaker is 5- bilaterally elbow flexor and extensor are 5/5 while proximal upper extremities was able to do antigravity but limited because of pain. Left lower extremity proximally is limited because of pain (in groin region) while distally and right lower extremity is 5/5. Normal tone and bulk. Cerebellum: Limited because of patient pain. Sensation: Sensation is normal to touch throughout. Reflexes (right/left): 2+ in upper while lower unable to assess because of pain (and refused to allow me on right). Has scar on the right knee from knee replacement. Plantars are downgoing bilaterally. Results - Laboratory Findings CBC and BMP: 10/21/20 12:09 10/21/20 12:09 Abnormal Lab Findings: Abnormal Labs 10/21/20 10/21/20 10/21/20 12:09 12:09 13:49 Hct 38.3 L ESR 100 H Sodium 136 L Glucose 160 H Total Bilirubin 1.4 H Creatine Kinase 38 L Urine Protein Ur Leukocyte Esterase Urine WBC Urine Bacteria Hyaline Casts Urine Mucus 10/21/20 14:45 Hct ESR Sodium Glucose Total Bilirubin Creatine Kinase Urine Protein Trace H Ur Leukocyte Esterase Moderate H Urine WBC 24 H Urine Bacteria Rare H Hyaline Casts 3 H Urine Mucus Occasional H Assessment and Plan Assessment: Episode of slurring speech (per family members): Possibly Transient ischemic attack Diplopia upon prolonged watching television for the past 1-2 month is concerning for myasthenia gravis Generalized pain, with new pain in shoulder. Is possibly due to medication effect (stated he was on recent medication but not sure what it was) vs component of osteoarthritis Old right frontal ischemic stroke 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 Possible left lateral disc osteophyte complex at L5 to S1 may impinge the extraforaminal left L5 nerve root per CT lumbar Osteoarthritis of bilateral shoulder region Acute recurrent Urinary tract infection History of abdominal aortic aneurysm (4.5cm) Plan: Patient was started on aspirin 81 mg and Lipitor 40 mg at daily his home dose by the ED team. I will avoid adding any antiplatelets or changing medication until we get further investigation of the patient's pain area and I'll decrease the Lipitor from 40 mg to 20 mg. Hemoglobin A1c is ordered by the ED team is pending. I ordered a carotid duplex and 2-D echo. Continue every 4 hours neuro checks. Placed the patient on continuous cardiac monitoring. I will not order MRI the brain yet or any repeated brain image and will ree valuate the patient tomorrow. I ordered the ANNE, [place] 1 antibody, acetylcholine receptor antibody, myoglobin, aldolase, rheumatoid factor, SSA and SSB antibody. Patient TSH and the CK level within the normal limits. Consider MRI of the pelvis especially that the patient was pointing to his groin region. Recommend EMG with nerve conduction study as an outpatient. Orthopedic surgical team is consulted. Infection disease team was consulted. Thank you for the consultation. Jake Jean M.D. Neuro-hospitalist Time with Patient: Greater than 30
[2020-10-22] MEDS: Acetaminophen-Codeine 300-30mg TAB PO PRN ×2 (02:44→08:39)
[2020-10-22 04:15] LABS: Creatine Kinase 41 U/L (35-257); Rheumatoid Factor, Qnt 58 IU/mL (0-15)
[2020-10-22 06:15] LABS: Hemoglobin A1C 7.2 % (4.0-6.0)
[2020-10-22 06:41] LABS: Basophils % (A) 1 %; Eosinophils # (A) 0.1 k/uL (0-0.7); Eosinophils % (A) 2 %; HCT 35.1 % (39.0-53.0); HGB 12.4 gm/dL (13.0-17.5); Lymphocytes # (A) 1.5 k/uL (1.0-4.8); Lymphocytes % (A) 21 %; MCH 30.9 pg (25.0-35.0); MCHC 35.4 g/dL (31.0-37.0); MCV 87.4 fL (80.0-100.0); Mean Platelet Volume 7.1; Monocytes # (A) 0.4 k/uL (0-1.0); Monocytes % (A) 6 %; Neutrophils # (A) 4.8 k/uL (1.3-7.7); Neutrophils % (A) 68 %; Platelet Count 214 k/uL (150-450); RBC 4.02 m/uL (4.30-5.90); RDW 13.7 % (11.5-15.5); WBC 7.1 k/uL (3.8-10.6)
--- NOTE | 2020-10-22 07:53 | P.HPIM ---
History of Present Illness This is a pleasant 80 years old male with past medical history of coronary artery disease status post stenting, hyperlipidemia, hypertension, hypothyroidism. He is a patient of Dr. Ashraf. Patient presents because of pain in the neck and shoulder area with difficult to resect both upper extremity due to pain for example he cannot lift a glass of water and he had to use as a straw recently and he cannot put his hearing aids and due to pain in his upper extremities Also he was complaining from pain in his low back radiating to both lower extremities above the knee and when he walks he got severe pain in the left groin area which prevents him from walking He complains from some diplopia but no slurred speech, very mild headache no specific weakness in his extremities while he is lying in bed. Also patient has been complaining from frequent urinary tract symptoms for the last 1.5-2 months with some dysuria and urgency and his been using diaper recently. He is been treated for UTI 2-3 times over the last 2 months. Because of the above problems he cannot get up due to severe pain and also rolled from [id number]. He denies stroke or trauma to his head Denies smoking, alcohol or illicit drugs. He came to the emergency room 2 days ago for concerns of back pain and urinary symptoms that has been not resolving for 2 months complaining of from urine urgency, frequency, dysuria as well as bilateral flank pain. Associated with difficulty walking. He was recently treated by his PCP with cefdinir and Flexeril. Vitas looks stable and he is afebrile Labs show an unremarkable CBC, INR, BMP and liver enzymes. Glucose is slightly elevated 160. Troponin is negative less than 0.012. TSH is normal at 3.9. Urine analysis checked 2 days ago showing large leukocyte esterase and WBCs more than 182 suspicious for infection Coronavirus not detected. Blood culture from the 10th showing no growth after [address] of the brain: No acute process Lumbar spine CT, mild to moderate multilevel degenerative disc disease with degenerative grade 1 spondylolisthesis of T12-L1, L2-L3, L3-L4, and L5-S1. With mild bile stenosis pelvic x-ray: No acute fracture or dislocation KUB: Cholelithiasis with gallstone measuring up to 1.3 cm. Nonobstructive bowel gas pattern. Under stool burden. Rate is in the right side of the abdomen Bilateral shoulder x-ray showing degenerative disease, referred to report Review of Systems CONSTITUTIONAL: No fever, no malaise, no fatigue. HEENT: No recent visual problems or hearing problems. Denied any sore throat. CARDIOVASCULAR: No orthopnea, PND, no palpitations, no syncope. PULMONARY: No shortness of breath, no cough, no hemoptysis. GASTROINTESTINAL: No diarrhea, no nausea, no vomiting, no abdominal pain. Normoactive bowel sounds. NEUROLOGICAL: No headaches, no weakness, no numbness. HEMATOLOGICAL: Denies any bleeding or petechiae. -GENITOURINARY: As above -MUSCULOSKELETAL/RHEUMATOLOGICAL: As above ENDOCRINE: Denies any polyuria or polydipsia. Past Medical History Past Medical History: Coronary Artery Disease (CAD), Hyperlipidemia, Hypertension, Thyroid Disorder Additional Past Medical History / Comment(s): cardiac stents, AAA (states Dr is watching), hx kidney stones, hx of colon polyps History of Any Multi-Drug Resistant Organisms: None Reported Past Surgical History: Heart Catheterization With Stent, Tonsillectomy Additional Past Surgical History / Comment(s): 6 stents, charity cataracts Past Anesthesia/Blood Transfusion Reactions: No Reported Reaction Date of Last Stent Placement:: unknown Past Psychological History: No Psychological Hx Reported Smoking Status: Former smoker Past Alcohol Use History: None Reported Past Drug Use History: None Reported - Past Family History Mother Family Medical History: No Reported History Medications and Allergies Home Medications Medication Instructions Recorded Confirmed Type Aspirin EC [Ecotrin Low Dose] 81 mg PO DAILY 10/30/16 10/21/20 History Atorvastatin [Lipitor] 40 mg PO DAILY 10/30/16 10/21/20 History Isosorbide Mononitrate ER [Imdur] 60 mg PO DAILY 10/30/16 10/21/20 History Metoprolol Succinate (ER) [Toprol 50 mg PO DAILY 10/30/16 10/21/20 History Xl] Nitroglycerin Sl Tabs [Nitrostat] 0.4 mg SL Q5M PRN 10/30/16 10/21/20 History Omeprazole 20 mg PO DAILY 10/30/16 10/21/20 History Levothyroxine Sodium [Synthroid] 50 mcg PO DAILY 01/13/18 10/21/20 History Acetaminophen-Codeine 300-30mg 1 tab PO Q6H PRN #12 tablet 10/19/20 10/21/20 Rx [Tylenol #3] Caclium 600mg W/Vitamin D3 1 tab PO DAILY 10/19/20 10/21/20 History Cefdinir [Omnicef] 300 mg PO Q12H 10/19/20 10/21/20 History Cyclobenzaprine [Flexeril] 10 mg PO TID PRN 10/19/20 10/21/20 History Fish Oil 600mg 1 cap PO DAILY 10/19/20 10/21/20 History Niacin (Inositol Niacinate) 1,000 mg PO DAILY 10/19/20 10/21/20 History [Niacin 500 mg Capsule] Allergies Allergy/AdvReac Type Severity Reaction Status Date / Time No Known Allergies Allergy Verified 10/21/20 13:28 Physical Exam Vitals: Vital Signs Temp Pulse Resp BP Pulse Ox 10/21/20 11:46 85 22 129/71 95 10/21/20 11:02 98.1 F 92 18 117/72 97 Intake and Output 10/21/20 10/21/20 10/21/20 06:59 14:59 22:59 Other: Weight 120.202 kg -GENERAL: The patient is alert and oriented x3, not in any acute distress. Obese. HEENT: Pupils are round and equally reacting to light. EOMI. No scleral icterus. No conjunctival pallor. Normocephalic, atraumatic. No pharyngeal erythema. No thyromegaly. CARDIOVASCULAR: S1 and S2 present. No murmurs, rubs, or gallops. PULMONARY: Chest is clear to auscultation, no wheezing or crackles. -ABDOMEN: Soft, nontender, nondistended, normoactive bowel sounds. No palpable organomegaly. MUSCULOSKELETAL: No joint swelling or deformity. Patient cannot sit up from bed or roll glipizide due to severe pain in his back, and shoulder. EXTREMITIES: No cyanosis, clubbing, or pedal edema. NEUROLOGICAL: Gross neurological examination did not reveal any focal deficits. SKIN: No rashes. No petechiae -Gait exam: Deferred due to his severe pain Results CBC & Chem 7: 10/22/20 05:52 10/21/20 12:09 Labs: Abnormal Lab Results - Last 24 Hours (Table) 10/21/20 10/21/20 Range/Units 12:09 12:09 Hct 38.3 L (39.0-53.0) % Sodium 136 L (137-145) mmol/L Glucose 160 H (74-99) mg/dL Total Bilirubin 1.4 H (0.2-1.3) mg/dL Creatine Kinase 38 L (55-170) U/L Assessment and Plan Assessment: Possible acute urinary tract infection, failed outpatient therapy [id number] multiple degenerative disc disease with degenerative grade 1 spondylolisthesis of T12-L1, L2-L3, L3-L4, and L5-S1. With mild bile stenosis Patient in the left groin area while walking Incidental finding of aortic abdominal aneurysm of 4.5 cm, was 4.6 in 2019 with no significant change Cholelithiasis with gallstone measuring 1.3 cm Hypertension Hyperlipidemia Hypothyroidism Obesity with BMI of 36.4 Plan: This is a pleasant 80 years old male who presents with UTI and pain and difficulty ambulating and moving his extremities. We will order a hemoglobin A1c, vitamin B12. Neurology consult. Also consult orthopedic team We'll start the patient on antibiotics ceftriaxone, we'll check repeat urinalysi s and urine culture. Check urine ultrasound and the bladder scan. Labs and medication were reviewed.. Continue same treatment. Continue with symptomatic treatment. Resume home medication. Monitor lytes and vitals. DVT and GI prophylaxis. Further recommendations depends on the clinical course of the patient DVT prophylaxis: Subcutaneous heparin GI Prophylaxis: Pepcid PT/OT: Pending Prognosis is guarded
[2020-10-22] MEDS: PANTOPRAZOLE 40 MG TABLET PO SCH (08:38)
[2020-10-22] MEDS: LEVOTHYROXINE 50 MCG TAB PO SCH (08:38)
[2020-10-22] MEDS: CALCIUM CARB-VIT D 500 MG-5 MCG TAB PO SCH (08:38)
[2020-10-22] MEDS: METOPROLOL SUCCINATE (ER) 50 MG TAB.ER.24H PO SCH (08:38)
[2020-10-22] MEDS: ISOSORBIDE MONONITRATE ER 60 MG TAB.ER.24H PO SCH (08:39)
[2020-10-22] MEDS: ASPIRIN 81 MG PO SCH (08:39)
[2020-10-22] MEDS ORDERED: ATORVASTATIN 20 MG TAB PO SCH (09:00)
[2020-10-22] MEDS ORDERED: ATORVASTATIN 40 MG TAB PO SCH (09:00)
[2020-10-22] MEDS ORDERED: FISH OIL 600 MG PO SCH (09:00)
--- NOTE | 2020-10-22 10:32 | US ---
"EXAMINATION TYPE: US carotid duplex BILAT DATE OF EXAM: 10/22/2020 COMPARISON: NONE CLINICAL HISTORY: transient ischemic attack. EXAM MEASUREMENTS: RIGHT: Peak Systolic Velocity (PSV) cm/sec ----- Right CCA: 71.9 ----- Right ICA: 441 ----- Right ECA: 166 ICA/CCA ratio: 6.21 RIGHT: End Diastole cm/sec ----- Right CCA: 5.7 ----- Right ICA: 143 ----- Right ECA: 0.0 LEFT: Peak Systolic Velocity (PSV) cm/sec ----- Left CCA: 131 ----- Left ICA: 105 ----- Left ECA: 267 ICA/CCA ratio: 0.8 LEFT: End Diastole cm/sec ----- Left CCA: 18.0 ----- Left ICA: 29.8 ----- Left ECA: 0.0 VERTEBRALS (direction of flow): Right Vertebral: Antegrade Left Vertebral: Antegrade Rhythm: Normal Severe atherosclerotic changes bilaterally with significant right stenosis. Grayscale, color Doppler , spectral Doppler imaging performed of the carotid arteries. Waveform analysis show significant stenosis of the proximal internal carotid artery on the right, the re is elevated peak systolic velocity, spectral broadening and loss of the systolic window. 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 1. Normal (no stenosis)=ICA PSV < 125 cm/s: ratio < 2.0: ICA EDV<40 cm/s. 2. Less than 50% stenosis=ICA PSV < 125 cm/s: ratio < 2.0: ICA EDV<40 cm/s. 3. 50 to 69% stenosis=ICA PSV of 125 to 230 cm/s: ration 2.0 ? 4.0: ICA EDV 40-100 cm/s. 4. Greater than 70% stenosis to near occlusion= ICA PSV > 230 cm/s: ratio > 4.0: ICA EDV > 100 cm/s. 5. Near occlusion= ICA PSV velocities may be low or undetectable: variable ratio and ICA EDV. 6. Total occlusion=unable to detect flow. A Yellow level critical message alert has been initiated for Oswald Ashraf MD via the [facility] 0 | Critical Results System on 10/22/2020 10:29 AM. This message alert has been sent to Oswald Ashraf MD via the preferences provided by the clinician for the receipt of Radiology Critical Findings. Ne ssage ID [id number]."
--- NOTE | 2020-10-22 11:31 | ECHOF ---
Referral Reason:stroke MEASUREMENTS -------- HEIGHT: 181.6 cm WEIGHT: 120.2 kg BP: 168/69 RVIDd: 3.9 cm (< 3.3) IVSd: 1.4 cm (0.6 - 1.1) LVIDd: 4.9 cm (3.9 - 5.3) LVPWd: 1.4 cm (0.6 - 1.1) IVSs: 1.9 cm LVIDs: 3.2 cm LVPWs: 1.9 cm LA Diam: 4.2 cm (2.7 - 3.8) Ao Diam: 3.9 cm (2.0 - 3.7) AV Cusp: 1.7 cm (1.5 - 2.6) MV EXCURSION: 14.270 mm (> 18.000) MV EF SLOPE: 43 mm/s (70 - 150) EPSS: 0.6 cm MV E Zia: 0.48 m/s MV DecT: 287 ms MV A Zia: 0.84 m/s MV E/A Ratio: 0.57 AR PHT: 885 ms RAP: 5.00 mmHg RVSP: 31.28 mmHg FINDINGS -------- Sinus rhythm. This was a technically difficult study with suboptimal views. The left ventricular size is normal. There is moderate concentric left ventricular hypertrophy. O verall left ventricular systolic function is normal with, an EF between 55 - 60 %. The right ventricle is mild to moderately enlarged. The left atrium is mildly dilated. The right atrium is normal in size. 5.0mg of Lumason was utilized for enhancement of images There is mild aortic valve sclerosis. There is mild aortic regurgitation. The mitral valve leaflets are mildly thickened. Mild mitral annular calcification present. There is trace to mild mitral regurgitation. Mild tricuspid regurgitation present. Right ventricular systolic pressure is normal at < 35 mmHg. The pulmonic valve was not well visualized. The aortic root is dilated measuring 3.9cm. Normal inferior vena cava with normal inspiratory collapse consistent with estimated right atrial pre ssure of 5 mmHg. There is no pericardial effusion. CONCLUSIONS -------- 1. This was a technically difficult study with suboptimal views. 2. The left ventricular size is normal. 3. There is moderate concentric left ventricular hypertrophy. 4. Overall left ventricular systolic function is normal with, an EF between 55 - 60 %. 5. The right ventricle is mild to moderately enlarged. 6. The left atrium is mildly dilated. 7. 5.0mg of Lumason was utilized for enhancement of images 8. There is mild aortic valve sclerosis. 9. There is mild aortic regurgitation. 10. The mitral valve leaflets are mildly thickened. 11. Mild mitral annular calcification present. 12. There is trace to mild mitral regurgitation. 13. Mild tricuspid regurgitation present. 14. The aortic root is dilated measuring 3.9cm. 15. There is no pericardial effusion. [employer] SUR[employer] MANAGER: DIANE Jiménez
[2020-10-22 12:00] LABS: JO-1 IgG Antibody <0.2 AI
--- NOTE | 2020-10-22 12:59 | P.CNOR ---
History of Present Illness - [facility] Consult date: 10/22/20 Requesting physician: Femi E Sheet Consult reason: back pain, other (Inability to ambulate on left lower extremity) History of present illness: Patient very pleasant 80-year-old female who is seen and examined at bedside for further evaluation and consultation was placed in regards to low back pain and difficulty with ambulation. Patient states approximately 5 days ago he was ambulating normally and performing all regular activities of daily living without difficulty. He was recently able to work outside and paint his camper. He states over the past 5 days he's had significant exacerbation of his symptoms. He has significant pain in his left groin and difficulty lifting his left lower extremity. He states when trying to move his left lower extremity he has pain that radiates from his hip towards his back. He denies any midline low back pain. He states he does have some bilateral flank pain. He denies specific radiculopathy of the bilateral lower extremities. He states he is also been experiencing increasing pain in his bilateral shoulders. He has increased pain with lifting his shoulders above his head. He denies any recent injuries. He has had some difficulty with his vision lately states he has seeing double vision. He also had an episode of slurred speech. He was seen and examined by neurology yesterday. 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 He is currently being treated for an acute recurrent urinary tract infection. His other medical diagnoses include history of abdominal aortic aneurysm, diplopia, episode of slurred speech, coronary artery disease, hyperlipidemia, hypertension, and thyroid disorder. Patient continues to be seen by multiple medical providers including neurology and medicine. He did have x-ray imaging of the pelvis performed as well as lumbar CT imaging. He was found to have significant degenerative changes within his left hip and lumbar spine. He is undergoing multiple lab testing orders as ordered by neurology. Neurology has also ordered MRI imaging of the pelvis. Physical therapy is at the bedside this morning to help increase the patient's mobility and ambulation. Past Medical History Past Medical History: Coronary Artery Disease (CAD), Hyperlipidemia, Hypertension, Thyroid Disorder Additional Past Medical History / Comment(s): cardiac stents, AAA (states Dr is watching), hx kidney stones, hx of colon polyps History of Any Multi-Drug Resistant Organisms: None Reported Past Surgical History: Heart Catheterization With Stent, Tonsillectomy Additional Past Surgical History / Comment(s): 6 stents, charity cataracts Past Anesthesia/Blood Transfusion Reactions: No Reported Reaction Date of Last Stent Placement:: unknown Past Psychological History: No Psychological Hx Reported Smoking Status: Former smoker Past Alcohol Use History: None Reported Past Drug Use History: None Reported - Past Family History Mother Family Medical History: No Reported History Medications and Allergies Home Medications Medication Instructions Recorded Confirmed Type Aspirin EC [Ecotrin Low Dose] 81 mg PO DAILY 10/30/16 10/21/20 History Atorvastatin [Lipitor] 40 mg PO DAILY 10/30/16 10/21/20 History Isosorbide Mononitrate ER [Imdur] 60 mg PO DAILY 10/30/16 10/21/20 History Metoprolol Succinate (ER) [Toprol 50 mg PO DAILY 10/30/16 10/21/20 History Xl] Nitroglycerin Sl Tabs [Nitrostat] 0.4 mg SL Q5M PRN 10/30/16 10/21/20 History Omeprazole 20 mg PO DAILY 10/30/16 10/21/20 History Levothyroxine Sodium [Synthroid] 50 mcg PO DAILY 01/13/18 10/21/20 History Acetaminophen-Codeine 300-30mg 1 tab PO Q6H PRN #12 tablet 10/19/20 10/21/20 Rx [Tylenol #3] Caclium 600mg W/Vitamin D3 1 tab PO DAILY 10/19/20 10/21/20 History Cefdinir [Omnicef] 300 mg PO Q12H 10/19/20 10/21/20 History Cyclobenzaprine [Flexeril] 10 mg PO TID PRN 10/19/20 10/21/20 History Fish Oil 600mg 1 cap PO DAILY 10/19/20 10/21/20 History Niacin (Inositol Niacinate) 1,000 mg PO DAILY 10/19/20 10/21/20 History [Niacin 500 mg Capsule] Allergies Allergy/AdvReac Type Severity Reaction Status Date / Time No Known Allergies Allergy Verified 10/21/20 13:28 Physical Examination Physical exam: Patient is awake, alert, and oriented 3 Vital signs stable Good chest excursion with deep inspiration and expiration Patient has significant difficulty rolling over in bed and requires 2 person assist Examination of lumbar spine reveals skin is intact with no abrasions, lacerat ions, or bruises; no erythema, purulence or signs of infection No pain on palpation along the midline of the lumbosacral spine Some bilateral pain with palpation of the lateral lumbar spine towards the flank Dorsiflexion, plantarflexion, and extensor hallucis longus positive sustained bilaterally Patient is able to lift right lower extremity off the bed but somewhat slowly Significant difficulty with trying to perform hip flexion on the left Significant pain at the left hip and groin with attempting active range of motion of the left hip Significant pain with internal and external rotation of the left hip No significant pain with internal and external rotation of the right hip Evidence of a well-healed incision over the anterior knee bilaterally No lower extremity hyperreflexia bilaterally No signs or symptoms of DVT; no calf pain No pain with internal and external rotation of the hips bilaterally Neurovascularly intact Some pain on palpation of the bilateral acromioclavicular joints No significant bruising, swelling, or erythema over the bilateral shoulders Patient is able to perform active range of motion bilateral shoulders but has increased bilateral shoulder pain while doing so Results Pertinent studies: CT of the lumbar spine taken on 10/21/2020: L2-3 degenerative disc disease and retrolisthesis with anterior and posterior osteophytic spurring with mild spinal canal stenosis; L3-4 degenerative disc disease with anterior osteophytic spurring; L4-5 severe facet hypertrophy, bulging, and ligamentum flavum hypertrophy resulting in mild spinal canal stenosis; L5-S1 spondylolisthesis, severe facet hypertrophy with bony bridging ankylosis of the facet joints, and far lateral disc osteophyte complex with some compression to the left L5 nerve root left foraminal stenosis; no evidence of vertebral body compression fracture deformities X-ray of the pelvis taken on 10/21/2020: Advanced axial joint space loss of the left hip with moderate spurring; moderate axial joint space loss of the right hip; no acute fracture dislocation within the pelvis X-rays of the bilateral shoulders taken on 10/21/2020: Moderate arthritis of the bilateral acromioclavicular joint with greater degree of marginal spurring and capsular hypertrophy on the right; some bony irregularity at the right greater tuberosity suggestive of underlying chronic rotator cuff tendinopathy; no fracture dislocation within the bilateral shoulders - Labs Labs: Abnormal Lab Results - Last 24 Hours (Table) 10/21/20 10/21/20 10/21/20 Range/Units 12:09 12:09 13:49 RBC (4.30-5.90) m/uL Hgb (13.0-17.5) gm/dL Hct (39.0-53.0) % ESR 100 H (0-15) mm/hr Sodium 136 L (137-145) mmol/L Glucose 160 H (74-99) mg/dL Hemoglobin A1c (4.0-6.0) % Total Bilirubin 1.4 H (0.2-1.3) mg/dL Creatine Kinase 38 L (55-170) U/L Urine Protein (Negative) Ur Leukocyte Esterase (Negative) Urine WBC (0-5) /hpf Urine Bacteria (None) /hpf Hyaline Casts (0-2) /lpf Urine Mucus (None) /hpf Rheumatoid Factor 58 H (0-15) IU/mL 10/21/20 10/21/20 10/22/20 Range/Units 14:45 18:12 05:52 RBC 4.02 L (4.30-5.90) m/uL Hgb 12.4 L (13.0-17.5) gm/dL Hct 35.1 L (39.0-53.0) % ESR (0-15) mm/hr Sodium (137-145) mmol/L Glucose (74-99) mg/dL Hemoglobin A1c 7.2 H (4.0-6.0) % Total Bilirubin (0.2-1.3) mg/dL Creatine Kinase (55-170) U/L Urine Protein Trace H (Negative) Ur Leukocyte Esterase Moderate H (Negative) Urine WBC 24 H (0-5) /hpf Urine Bacteria Rare H (None) /hpf Hyaline Casts 3 H (0-2) /lpf Urine Mucus Occasional H (None) /hpf Rheumatoid Factor (0-15) IU/mL Microbiology - Last 24 Hours (Table) 10/21/20 14:45 Urine Culture - Preliminary Urine,Voided H & H 10/21/20 10/22/20 Range/Units 12:09 05:52 Hgb 13.5 12.4 L (13.0-17.5) gm/dL Hct 38.3 L 35.1 L (39.0-53.0) % Coagulation 10/21/20 Range/Units 12:09 INR 0.9 (<1.2) Result Diagrams: 10/22/20 05:52 10/21/20 12:09 Assessment and Plan Assessment: Assessment: Inability to ambulate due to left hip Severe osteoarthritis left hip joint spacing Moderate osteoarthritis right hip joint spacing Bilateral flank pain L2-3 retrolisthesis and spinal canal stenosis and lumbar L4-5 mild spinal canal stenosis Lumbar degenerative disc disease Lumbar and lumbosacral facet arthropathy L5-S1 spondylolisthesis and left foraminal stenosis Bilateral acromioclavicular osteoarthritis Bilateral shoulder pain History of bilateral total knee arthroplasty Acute recurrent urinary tract infection Episode of slurred speech Diplopia Coronary artery disease Hyperlipidemia Hypertension Thyroid disorder History of abdominal aortic aneurysm History of right frontal ischemic stroke (1) Osteoarthritis of left hip Current Visit: Yes Status: Acute Code(s): M16.12 - UNILATERAL PRIMARY OSTEOARTHRITIS, LEFT HIP SNOMED Code(s): 478831547640621 (2) Osteoarthritis of right hip Current Visit: Yes Status: Acute Code(s): M16.11 - UNILATERAL PRIMARY OSTEOARTHRITIS, RIGHT HIP SNOMED Code(s): 224521920185444 (3) Left hip pain Current Visit: Yes Status: Acute Code(s): M25.552 - PAIN IN LEFT HIP SNOMED Code(s): 91085659 (4) Flank pain Current Visit: Yes Status: Acute Code(s): R10.9 - UNSPECIFIED ABDOMINAL PAIN SNOMED Code(s): 841433693 (5) Inability to ambulate due to left hip Current Visit: Yes Status: Acute Code(s): R26.2 - DIFFICULTY IN WALKING, NOT ELSEWHERE CLASSIFIED SNOMED Code(s): 066431470 (6) Spondylolisthesis, lumbar region Current Visit: Yes Status: Acute Code(s): M43.16 - SPONDYLOLISTHESIS, LUMBAR REGION SNOMED Code(s): 032149567481862 (7) Spondylolisthesis of lumbosacral region Current Visit: Yes Status: Acute Code(s): M43.17 - SPONDYLOLISTHESIS, LUMBOSACRAL REGION SNOMED Code(s): 798894996 (8) Lumbar degenerative disc disease Current Visit: Yes Status: Acute Code(s): M51.36 - OTHER INTERVERTEBRAL DISC DEGENERATION, LUMBAR REGION SNOMED Code(s): 65723117 (9) Lumbar stenosis Current Visit: Yes Status: Acute Code(s): M48.061 - SPINAL STENOSIS, LUMBAR REGION WITHOUT NEUROGENIC MARIA ESTHER SNOMED Code(s): 97313249 (10) Lumbar facet arthropathy Current Visit: Yes Status: Acute Code(s): M47.816 - SPONDYLOSIS W/O MYELOPATHY OR RADICULOPATHY, LUMBAR REGION SNOMED Code(s): 386814514 (11) Osteoarthritis of acromioclavicular joints, bilateral Current Visit: Yes Status: Acute Code(s): M19.011 - PRIMARY OSTEOARTHRITIS, RIGHT SHOULDER; M19.012 - PRIMARY OSTEOARTHRITIS, LEFT SHOULDER SNOMED Code(s): 114732263 (12) Bilateral shoulder pain Current Visit: Yes Status: Acute Code(s): M25.511 - PAIN IN RIGHT SHOULDER; M25.512 - PAIN IN LEFT SHOULDER SNOMED Code(s): 86821644 (13) History of total bilateral knee replacement Current Visit: Yes Status: Acute Code(s): Z96.653 - PRESENCE OF ARTIFICIAL KNEE JOINT, BILATERAL SNOMED Code(s): 5313533559124 (14) Recurrent urinary tract infection Current Visit: Yes Status: Acute Code(s): N39.0 - URINARY TRACT INFECTION, SITE NOT SPECIFIED SNOMED Code(s): 991089773 (15) Diplopia Current Visit: Yes Status: Acute Code(s): H53.2 - DIPLOPIA SNOMED Code(s): 58107980 (16) Slurred speech Current Visit: Yes Status: Acute Code(s): R47.81 - SLURRED SPEECH SNOMED Code(s): 093580721 (17) Coronary artery disease Current Visit: Yes Status: Acute Code(s): I25.10 - ATHSCL HEART DISEASE OF [place] CORONARY ARTERY W/O ANG PCTRS SNOMED Code(s): 85037812 (18) Hyperlipidemia Current Visit: Yes Status: Acute Code(s): E78.5 - HYPERLIPIDEMIA, UNSPECIFIED SNOMED Code(s): 17340288 (19) Hypertension Current Visit: Yes Status: Acute Code(s): I10 - ESSENTIAL (PRIMARY) HYPERTENSION SNOMED Code(s): 51939774 (20) Thyroid disorder Current Visit: Yes Status: Acute Code(s): E07.9 - DISORDER OF THYROID, UNSPECIFIED SNOMED Code(s): 83733773 (21) Abdominal aortic aneurysm Current Visit: Yes Status: Acute Code(s): I71.4 - ABDOMINAL AORTIC ANEURYSM, WITHOUT RUPTURE SNOMED Code(s): 763413964 (22) History of ischemic stroke Current Visit: Yes Status: Acute Code(s): Z86.73 - PRSNL HX OF TIA (TIA), AND CEREB INFRC W/O RESID DEFICITS SNOMED Code(s): 35825358712612775 Plan: Plan: 1. After reviewing of imaging, physical examination of the patient, and further discussion with the patient, it appears his significant difficulty with ambulation seems to be in relation to his left hip. Review of imaging does show severe osteoarthritis at the axial joint space. He has significant pain with trying to perform active range of motion of the left hip. His pain is into his left groin. He has increased pain with passive range of motion of the left hip as well including internal rotation, external rotation, and hip flexion. He does admit to some back pain but states his back pain is over the flanks bilaterally. He denies any midline back pain. Reviewing the imaging does show some degenerative changes with multilevel stenosis, degenerative disc disease, and listhesis but currently his symptoms seem more consistent with his left hip as the cause. We are now currently planning for acute surgical intervention at his left hip and do feel he should work through treatment with physical therapy as scheduled during his admission to the hospital. MRI imaging is currently pending for the pelvis as ordered by neurology. We will not currently plan for consultation with pain management in regard to his lumbar spine as his back pain symptoms appear to be fairly well controlled and he is not experiencing any significant midline pain. We will continue to follow the patient. We will follow up for further evaluation following his pelvis MRI. He does have evidence of osteoarthritis of the bilateral acromioclavicular joints. He is able to perform active range of motion of bilateral shoulders but has increased pain while doing so. This is acute for him and has only been present over the past 5 days. We will continue with conservative treatment. We discussed he is encouraged to continue working with physical therapy for range of motion and better pain control regards to his bilateral shoulders. He is also encouraged to continue working with physical therapy to increase his mobility and ambulation. 2. Patient will continue with evaluation by multiple medical providers including medicine and neurology. Patient is undergoing further lab testing as ordered by neurology. Pelvis MRI is also pending. Patient does have significantly this of medical diagnoses. More recently he did have an episode of slurred speech as well as diplopia. We discussed in detail with the patient or not currently planning for acute surgical intervention in regards to his lumbosacral spine, bilateral hips, or bilateral shoulders. We did discuss it is hard to determine the cause of his acute exacerbation of multiple joints when only 5 days ago he was performing regular activities of daily living without difficulty but he now requires a walker to aid in ambulation. We did discuss if he were to fail conservative treatment with therapy he'll most likely be a can didate for a left total hip arthroplasty. Given his previous surgical history with bilateral total knee arthroplasty performed by Dr. García Laboy, we will plan to have him follow up with Dr. García Laboy for further treatment and evaluation. Time with Patient: Greater than 30 (Including obtaining history, physical examination, reviewing of imaging, and dictation.)
--- NOTE | 2020-10-22 13:19 | P.PN ---
Subjective Progress Note Date: 10/22/20 Principal diagnosis: Generalized weakness dysuria back discomfort muscle weakness and discomfort Evaluated 80-year-old male this a.m. Patient has significant medical history of coronary artery disease with stenting, hyperlipidemia, hypertension, and hypothyroidism. Patient presented to the emergency department for diffuse muscle aches. Upon evaluation this a.m. patient was resting comfortably in bed. Patient continues to endorse muscle aches, and generalized weakness. Objective - Vital Signs Vital signs: Vital Signs Temp 98.7 F 10/22/20 11:39 Pulse 76 10/22/20 11:39 Resp 20 10/22/20 11:39 BP 147/78 10/22/20 11:39 Pulse Ox 96 10/22/20 11:39 Intake & Output 10/21/20 10/22/20 10/22/20 18:59 06:59 18:59 Intake Total 300 Balance 300 Weight 120.202 kg Intake: Oral 300 Other: Voiding Method Urinal - Constitutional General appearance: Present: mild distress - EENT Eyes: Present: EOMI, PERRLA Ears: bilateral: normal - Neck Carotids: bilateral: upstroke normal Thyroid: bilateral: normal size - Respiratory Respiratory: bilateral: diminished (Anterior posterior lung wright ) - Cardiovascular Details: Normal sinus rhythm Heart rate: 78 Rhythm: regular Heart sounds: normal: S1, S2 - Peripheral pulses radial pulse Peripheral Pulses: bilateral: Normal dorsalis pedis Peripheral Pulses: bilateral: Normal - Gastrointestinal General gastrointestinal: Present: normal bowel sounds - Integumentary Integumentary: Present: decreased turgor, pale - Neurologic Neurologic: Present: CNII-XII intact - Musculoskeletal Musculoskeletal: Present: generalized weakness - Psychiatric Psychiatric: Present: A&O x's 3, appropriate affect, intact judgment & insight - Allied health notes Allied health notes reviewed: nursing - Labs CBC & Chem 7: 10/22/20 05:52 10/21/20 12:09 Labs: Abnormal Lab Results - Last 24 Hours (Table) 10/21/20 10/21/20 10/21/20 Range/Units 12:09 13:49 14:45 RBC (4.30-5.90) m/uL Hgb (13.0-17.5) gm/dL Hct (39.0-53.0) % ESR 100 H (0-15) mm/hr Hemoglobin A1c (4.0-6.0) % Urine Protein Trace H (Negative) Ur Leukocyte Esterase Moderate H (Negative) Urine WBC 24 H (0-5) /hpf Urine Bacteria Rare H (None) /hpf Hyaline Casts 3 H (0-2) /lpf Urine Mucus Occasional H (None) /hpf Rheumatoid Factor 58 H (0-15) IU/mL 10/21/20 10/22/20 Range/Units 18:12 05:52 RBC 4.02 L (4.30-5.90) m/uL Hgb 12.4 L (13.0-17.5) gm/dL Hct 35.1 L (39.0-53.0) % ESR (0-15) mm/hr Hemoglobin A1c 7.2 H (4.0-6.0) % Urine Protein (Negative) Ur Leukocyte Esterase (Negative) Urine WBC (0-5) /hpf Urine Bacteria (None) /hpf Hyaline Casts (0-2) /lpf Urine Mucus (None) /hpf Rheumatoid Factor (0-15) IU/mL Microbiology - Last 24 Hours (Table) 10/21/20 14:45 Urine Culture - Preliminary Urine,Voided - Imaging and Cardiology Echocardiogram reviewed Carotid ultrasound reviewed Renal ultrasound reviewed Assessment and Plan Assessment: Acute urinary tract infection 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 L2 to L3 L3 to L4 and L5 to S1 with mild stenosis abdominal aortic aneurysm measuring 4.5 cm stenosis of carotid artery elevated RA marker Cholelithiasis hypertension hyperlipidemia hypothyroidism full code Plan: Urinary tract infection broad-spectrum antibiotics difficulty with ambulation consult neurology and orthopedic continue to monitor labs and vital signs continue home medications continue medical management further recommendations to come based on patient's clinical condition Time with Patient: Greater than 30
[2020-10-22 13:58] LABS: African American GFR (CKD) 104.8 (60.0-200.0); Anion Gap 14.2 mmol/L (4.00-12.00); BUN/Creat Ratio 25.71 Ratio (12.00-20.00); Calcium 8.9 mg/dL (8.7-10.3); Carbon Dioxide 17.8 mmol/L (21.6-31.8); Non-African American GFR(CKD) 90.4 (60.0-200.0)
--- NOTE | 2020-10-22 14:40 | P.PN ---
Subjective Progress Note Date: 10/22/20 Was seen at bedside and he feels slightly better today compared to yesterday. He denies any further diplopia and denies any slurring of speech. Patient hemoglobin A1c 7.2 which is the elevated. The CK level the repeated one is 41 which is normal. TSH is 3.90 which is normal. AST of 29 and the ALT of 24 which are normal. Rheumatoid factor is 58 which is elevated. A knee screen is negative. Noah 1 IgG antibody is less than 0.2 which is normal Noah 1 antibody and it is negative. SSA antibody is less than 0.2 which is normal SSB antibody was less than 0.2 which is normal. Carotid duplex is reported as hemodynamic significant stenosis of the proximal internal carotid artery of the right corresponding to greater than 70% diameter reduction by Doppler criteria, and in direct measurement of carotid stenosis. 2-D echo was reported as this was technically difficult study with suboptimal views. Overall left ventricle systolic function was normal with ejection fraction of 55-60%. There is moderate concentric ventricular hypertrophy at. Left atrium is mildly dilated. Objective - Vital Signs Vital signs: Vital Signs Temp 98.7 F 10/22/20 11:39 Pulse 76 10/22/20 11:39 Resp 20 10/22/20 11:39 BP 147/78 10/22/20 11:39 Pulse Ox 96 10/22/20 11:39 Intake & Output 10/21/20 10/22/20 10/22/20 18:59 06:59 18:59 Intake Total 300 Balance 300 Weight 120.202 kg Intake: Oral 300 Other: Voiding Method Urinal - Exam GENERAL: The patient is lying in bed and is in moderate acute distress. NEUROLOGICAL: Higher mental function: The patient is awake, alert, oriented to self, place and time. Patient is following commands. No aphasia and no neglect. Cranial nerves: The pupils are round, equal and reactive to light and accommodation. Visual wright are full to confrontation throughout. Extraocular movement is intact no nystagmus is noted. No ptosis upon upward gazed for 1 minute. Facial sensation is normal to touch throughout. The facial strength is normal throughout. Hearing is moderately decreased bilaterally to hand rub. Tongue is midline and moved [id number] without any difficulty. No dysarthria is noted. Shoulder shrug is limited because of patient's pain. Motor: The strength is hand english teacher is 5- bilaterally elbow flexor and extensor are 5/5 while proximal upper extremities was able to do antigravity but limited because of pain. Left lower extremity proximally is limited because of pain (in groin region) while distally and right lower extremity is 5/5. Normal tone and bulk. Cerebellum: Limited because of patient pain. Sensation: Sensation is normal to touch throughout. Reflexes (right/left): 2+ in upper while lower unable to assess because of pain (and refused to allow me on right). Has scar on the right knee from knee replacement. Plantars are downgoing bilaterally. - Labs CBC & Chem 7: 10/22/20 05:52 10/22/20 05:52 Labs: Abnormal Lab Results - Last 24 Hours (Table) 10/21/20 10/21/20 10/21/20 Range/Units 12:09 13:49 14:45 RBC (4.30-5.90) m/uL Hgb (13.0-17.5) gm/dL Hct (39.0-53.0) % ESR 100 H (0-15) mm/hr Carbon Dioxide (21.6-31.8) mmol/L Anion Gap (4.00-12.00) mmol/L BUN/Creatinine Ratio (12.00-20.00) Ratio Glucose (70-110) mg/dL Hemoglobin A1c (4.0-6.0) % Urine Protein Trace H (Negative) Ur Leukocyte Esterase Moderate H (Negative) Urine WBC 24 H (0-5) /hpf Urine Bacteria Rare H (None) /hpf Hyaline Casts 3 H (0-2) /lpf Urine Mucus Occasional H (None) /hpf Rheumatoid Factor 58 H (0-15) IU/mL 10/21/20 10/22/20 10/22/20 Range/Units 18:12 05:52 05:52 RBC 4.02 L (4.30-5.90) m/uL Hgb 12.4 L (13.0-17.5) gm/dL Hct 35.1 L (39.0-53.0) % ESR (0-15) mm/hr Carbon Dioxide 17.8 L (21.6-31.8) mmol/L Anion Gap 14.20 H (4.00-12.00) mmol/L BUN/Creatinine Ratio 25.71 H (12.00-20.00) Ratio Glucose 172 H (70-110) mg/dL Hemoglobin A1c 7.2 H (4.0-6.0) % Urine Protein (Negative) Ur Leukocyte Esterase (Negative) Urine WBC (0-5) /hpf Urine Bacteria (None) /hpf Hyaline Casts (0-2) /lpf Urine Mucus (None) /hpf Rheumatoid Factor (0-15) IU/mL Microbiology - Last 24 Hours (Table) 10/21/20 14:45 Urine Culture - Preliminary Urine,Voided Assessment and Plan Assessment: Episode of slurring speech (per family members): Possibly Transient ischemic attack Diplopia upon prolonged watching television for the past 1-2 month is concerning for myasthenia gravis Symptomatic right internal carotid artery (>70% stenosis per carotid duplex) 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 Possible left lateral disc osteophyte complex at L5 to S1 may impinge the extraforaminal left L5 nerve root per CT lumbar Osteoarthritis of bilateral shoulder region Acute recurrent Urinary tract infection History of abdominal aortic aneurysm (4.5cm) Plan: Patient was started on aspirin 81 mg. and did not start the patient on Plavix since the orthopedic is planning for surgery acutely of the left hip. I increased Lipitor from 20-40 mg and if he tolerates the Lipitor 40 mg possibly down the line can the increased to 80 mg daily. I consulted vascular surgery regarding the carotid stenosis on the right. Patient hemoglobin A1c 7.2 which is the elevated. The CK level the repeated one is 41 which is normal. TSH is 3.90 which is normal. AST of 29 and the ALT of 24 which are normal. Rheumatoid factor is 58 which is elevated. ANNE screen is negative. Anti Elba 1 IgG antibody is less than 0.2 which is normal Noah 1 antibody and it is negative. SSA antibody is less than 0.2 which is normal SSB antibody was less than 0.2 which is normal. Carotid duplex is reported as hemodynamic significant stenosis of the proximal internal carotid artery of the right corresponding to greater than 70% diameter reduction by Doppler criteria, and in direct measurement of carotid stenosis. 2-D echo was reported as this was technically difficult study with suboptimal views. Overall left ventricle systolic function was normal with ejection fraction of 55-60%. There is moderate concentric ventricular hypertrophy at. Left atrium is mildly dilated. Continue every 4 hours neuro checks. Placed the patient on continuous cardiac monitoring. Pending acetylcholine receptor antibody, myoglobin, aldolase labs. Ordered MRI of the pelvis and is pending. Recommend EMG with nerve conduction study as an outpatient. Orthopedic surgical team is on board and per their note team is planning for acute surgical intervention at the left hip. Infection disease team was consulted. The plan is discussed with the patient's nurse. Will follow-up with patient sporadically. Jake Jean M.D. Neuro-hospitalist Time with Patient: Less than 30
--- NOTE | 2020-10-22 17:44 | P.GSCN ---
History of Present Illness Consult date: 10/22/20 Reason for Consult: ICA stenosis, history of TIA History of present illness: 80 year old male with past medical history of coronary artery disease with multiple stents x 6, hypertension, AAA, and carotid stenosis presented to the hospital secondary to neck pain and shoulder pain. He also was complaining of weakness in his upper extremities as well as pain in his lower back radiating to his left groin and above the knee with ambulation. He denies any lateralizing symptoms such as unilateral weakness, amaurosis fugax, or speech issues. He states he has been told he has had a stroke in the past but was never symptomatic. Currently he denies any fevers, chills, nausea, vomiting, chest pain or shortness of breath. He has also been complaining of urinary issues for the last couple of months. Review of Systems All systems: negative (what is mentioned in the HPI or PMH) Past Medical History Past Medical History: Coronary Artery Disease (CAD), Hyperlipidemia, Hypertension, Thyroid Disorder Additional Past Medical History / Comment(s): cardiac stents, AAA (states Dr is watching), hx kidney stones, hx of colon polyps History of Any Multi-Drug Resistant Organisms: None Reported Past Surgical History: Heart Catheterization With Stent, Tonsillectomy Additional Past Surgical History / Comment(s): 6 stents, charity cataracts Past Anesthesia/Blood Transfusion Reactions: No Reported Reaction Date of Last Stent Placement:: unknown Past Psychological History: No Psychological Hx Reported Smoking Status: Former smoker Past Alcohol Use History: None Reported Past Drug Use History: None Reported - Past Family History Mother Family Medical History: No Reported History Medications and Allergies Home Medications Medication Instructions Recorded Confirmed Type Aspirin EC [Ecotrin Low Dose] 81 mg PO DAILY 10/30/16 10/21/20 History Atorvastatin [Lipitor] 40 mg PO DAILY 10/30/16 10/21/20 History Isosorbide Mononitrate ER [Imdur] 60 mg PO DAILY 10/30/16 10/21/20 History Metoprolol Succinate (ER) [Toprol 50 mg PO DAILY 10/30/16 10/21/20 History Xl] Nitroglycerin Sl Tabs [Nitrostat] 0.4 mg SL Q5M PRN 10/30/16 10/21/20 History Omeprazole 20 mg PO DAILY 10/30/16 10/21/20 History Levothyroxine Sodium [Synthroid] 50 mcg PO DAILY 01/13/18 10/21/20 History Acetaminophen-Codeine 300-30mg 1 tab PO Q6H PRN #12 tablet 10/19/20 10/21/20 Rx [Tylenol #3] Caclium 600mg W/Vitamin D3 1 tab PO DAILY 10/19/20 10/21/20 History Cefdinir [Omnicef] 300 mg PO Q12H 10/19/20 10/21/20 History Cyclobenzaprine [Flexeril] 10 mg PO TID PRN 10/19/20 10/21/20 History Fish Oil 600mg 1 cap PO DAILY 10/19/20 10/21/20 History Niacin (Inositol Niacinate) 1,000 mg PO DAILY 10/19/20 10/21/20 History [Niacin 500 mg Capsule] Allergies Allergy/AdvReac Type Severity Reaction Status Date / Time No Known Allergies Allergy Verified 10/21/20 13:28 Surgical - Exam Vital Signs Temp Pulse Resp BP Pulse Ox 98.1 F 92 18 117/72 97 10/21/20 11:02 10/21/20 11:02 10/21/20 11:02 10/21/20 11:02 10/21/20 11:02 no focal deficits. strength equal bilaterally Bilateral feet warm, palpable DP, popliteal and femoral pulses bilaterally. - General well developed, well nourished, no distress - Eyes PERRL, normal ocular movement - ENT normal pinna, normal nares - Neck no masses - Respiratory normal expansion, normal respiratory effort - Cardiovascular Rhythm: regular - Abdomen Abdomen: soft, non tender - Integumentary no rash, no growths - Neurologic normal sensation, no disoriented, no confused - Psychiatric oriented to time, oriented to person, oriented to place, speech is normal Results - Labs 10/22/20 05:52 10/22/20 05:52 Abnormal Lab Results - Last 24 Hours (Table) 10/21/20 10/21/20 10/22/20 Range/Units 12:09 18:12 05:52 RBC 4.02 L (4.30-5.90) m/uL Hgb 12.4 L (13.0-17.5) gm/dL Hct 35.1 L (39.0-53.0) % Carbon Dioxide (21.6-31.8) mmol/L Anion Gap (4.00-12.00) mmol/L BUN/Creatinine Ratio (12.00-20.00) Ratio Glucose (70-110) mg/dL Hemoglobin A1c 7.2 H (4.0-6.0) % Rheumatoid Factor 58 H (0-15) IU/mL 10/22/20 Range/Units 05:52 RBC (4.30-5.90) m/uL Hgb (13.0-17.5) gm/dL Hct (39.0-53.0) % Carbon Dioxide 17.8 L (21.6-31.8) mmol/L Anion Gap 14.20 H (4.00-12.00) mmol/L BUN/Creatinine Ratio 25.71 H (12.00-20.00) Ratio Glucose 172 H (70-110) mg/dL Hemoglobin A1c (4.0-6.0) % Rheumatoid Factor (0-15) IU/mL Microbiology - Last 24 Hours (Table) 10/21/20 14:45 Urine Culture - Preliminary Urine,Voided Diabetes panel 10/21/20 10/22/20 Range/Units 18:12 05:52 Sodium 136 (135-145) mmol/L Potassium 4.0 (3.5-5.5) mmol/L Chloride 104 (96-109) mmol/L Carbon Dioxide 17.8 L (21.6-31.8) mmol/L BUN 18.0 (9.0-27.0) mg/dL Creatinine 0.7 (0.6-1.5) mg/dL Glucose 172 H (70-110) mg/dL Hemoglobin A1c 7.2 H (4.0-6.0) % Calcium 8.9 (8.7-10.3) mg/dL Calcium panel 10/22/20 Range/Units 05:52 Calcium 8.9 (8.7-10.3) mg/dL Pituitary panel 10/22/20 Range/Units 05:52 Sodium 136 (135-145) mmol/L Potassium 4.0 (3.5-5.5) mmol/L Chloride 104 (96-109) mmol/L Carbon Dioxide 17.8 L (21.6-31.8) mmol/L BUN 18.0 (9.0-27.0) mg/dL Creatinine 0.7 (0.6-1.5) mg/dL Glucose 172 H (70-110) mg/dL Calcium 8.9 (8.7-10.3) mg/dL Adrenal panel 10/22/20 Range/Units 05:52 Sodium 136 (135-145) mmol/L Potassium 4.0 (3.5-5.5) mmol/L Chloride 104 (96-109) mmol/L Carbon Dioxide 17.8 L (21.6-31.8) mmol/L BUN 18.0 (9.0-27.0) mg/dL Creatinine 0.7 (0.6-1.5) mg/dL Glucose 172 H (70-110) mg/dL Calcium 8.9 (8.7-10.3) mg/dL - Imaging Additional studies: carotid doppler demonstrates right ICA stenosis of >80-99% with systolic velocity of 441 and end diastolic velocity of 143 on the right with a ratio of 6.21. 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 Patient would benefit from surgical intervention based on carotid doppler. Will discuss TCAR vs open repair after CTA. Recommend dual platelet therapy and statin. Thank you for the consultation.
--- NOTE | 2020-10-22 19:58 | CT ---
EXAMINATION TYPE: CT angio head neck DATE OF EXAM: 10/22/2020 COMPARISON: None HISTORY: stenosis, confusion, UTI CT DLP: 469.8 mGycm Automated exposure control for dose reduction was used. CONTRAST: Performed with IV Contrast, patient injected with 65cc mL of Isovue 370. Images were obtained from the aortic arch to the vertex of the brain with IV contrast. There are 3-D post processed images. There is normal branching pattern of the great vessels on the aortic arch. There is atheromatous nieves ge in the aortic arch and the great vessels. There is arterial flow in both subclavian arteries. Ther e is arterial flow in the common carotid arteries bilaterally. There is moderate plaque at the origin left internal carotid artery and approximate 60% stenosis. There is extensive plaque at the left car otid artery bifurcation. There is significant plaque formation at the right carotid artery bifurcation. There is estimated 70% stenosis of the distal right common carotid artery. There is probably more than 80% stenosis at the origin of the right internal carotid artery. There is approximate 70% stenosis at the origin of the left external carotid artery. There is subopti mal contrast density in the carotid arteries. There is arterial flow in the vertebrobasilar artery system. There is arterial flow in the anterior m iddle and posterior cerebral arteries. I see no mass effect. There is no evidence of intracranial ane urysm or neovascularity. There is normal enhancement of the venous sinuses. IMPRESSION: No significant angiographic abnormality of the brain. Atherosclerotic disease in the neck with hemodynamic stenosis of the internal carotid arteries bilate rally as above. This also stenosis of the distal right common carotid artery.
--- NOTE | 2020-10-22 23:20 | CONS ---
CONSULTATION DATE OF SERVICE: 10/22/2020 REASON FOR CONSULTATION: Recurrent urinary tract infection. HISTORY OF PRESENT ILLNESS: The patient is a 80-year-old male presenting to the ER at [facility] yesterday morning for evaluation of weakness, inability to ambulate, generalized body aches along with urinary burning and some difficulty in urination. The patient did mention he did have some urinary incontinence as the patient's urine was coming out of . The patient denies having any suprapubic or flank pain, has been complaining of feeling weak and tired. The patient mentioned this is his third urinary tract infection this year. Did have some nausea but no vomiting. No abdominal pain. No chest pain, shortness of breath or cough. No diarrhea. With these symptoms, the patient was evaluated by the ER physician. On arrival in the ER, the patient was afebrile. The patient was not hypoxic. He did have a normal white count. Kidney function was normal. Urine was positive with moderate leukocytosis; only 24 WBCs. The patient's COVID test was negative. The patient was started on Rocephin, has been admitted to the hospital. Infectious Disease was consulted with concern for recurrent UTI. REVIEW OF SYSTEMS: Positive points have been mentioned in the HPI. Rest of the systems are negative. PAST MEDICAL HISTORY: Coronary artery disease, hyperlipidemia, hypertension, hypothyroidism. PAST SURGICAL HISTORY: PTCA with stent, tonsillectomy. SOCIAL HISTORY: Remote history of smoking. No drinking or drug use. FAMILY HISTORY: No pertinent findings noticed. ALLERGIES: NO KNOWN DRUG ALLERGIES. MEDICATIONS: The patient is currently on Tylenol, Ventolin, aspirin, Lipitor, Os-Davian with D, Rocephin 1 gram daily, Flexeril, Imdur, Synthroid, Toprol-XL, Narcan and Protonix. PHYSICAL EXAMINATION: Blood pressure is 161/81 with a pulse of 85, temperature 98.5. He is 92% on room air. General description is an elderly male lying in bed in no distress. No tachypnea or accessory muscle of respiration use. HEENT: Examination shows no pallor or scleral icterus. Oral mucous membrane is dry. NECK: Trachea is central. No thyromegaly. LUNGS: Unlabored breathing. Clear to auscultation. No wheeze or crackle. HEART: S1, S2. Regular rate and rhythm. ABDOMEN: Soft. No tenderness. No guarding or rigidity. EXTREMITIES: No edema of the feet. SKIN EXAMINATION: No rash or mass palpable. Neurologically the patient is awake, alert, oriented x3. Mood and affect normal. LABS: Hemoglobin is 12.4, white count 7.1. BUN of 18, creatinine 0.7. Positive UA. Urine culture is pending. He did have positive UA on 10/17 with an Escherichia coli sensitive to Rocephin. DIAGNOSTIC IMPRESSION AND PLAN: Patient admitted to hospital with multiple symptoms; has had weakness, urine incontinence, burning, with concern for a symptomatic urinary tract infection, likely from enteric Gram-negative pathogen. PLAN: 1. Rocephin 1 gram IV piggyback daily. 2. Check a post-void residual to make sure the patient is not and may be a risk for his recurrent UTI. 3. We will follow his clinical condition and culture to further adjust medication if needed. Thank you for this consultation. Will follow this patient along with you. MMODL / IJN: [id number] /
[2020-10-23] MEDS: Acetaminophen-Codeine 300-30mg TAB PO PRN (01:42)
[2020-10-23] MEDS: LEVOTHYROXINE 50 MCG TAB PO SCH (04:59)
[2020-10-23] MEDS: CALCIUM CARB-VIT D 500 MG-5 MCG TAB PO SCH (06:58)
[2020-10-23] MEDS: ASPIRIN 81 MG PO SCH (06:58)
[2020-10-23] MEDS: METOPROLOL SUCCINATE (ER) 50 MG TAB.ER.24H PO SCH (06:58)
[2020-10-23] MEDS: ISOSORBIDE MONONITRATE ER 60 MG TAB.ER.24H PO SCH (06:58)
[2020-10-23] MEDS: PANTOPRAZOLE 40 MG TABLET PO SCH (06:58)
[2020-10-23 07:12] LABS: Basophils % (A) 1 %; Eosinophils # (A) 0.2 k/uL (0-0.7); Eosinophils % (A) 3 %; HCT 35.7 % (39.0-53.0); HGB 12.6 gm/dL (13.0-17.5); Lymphocytes # (A) 1.5 k/uL (1.0-4.8); Lymphocytes % (A) 24 %; MCH 30.6 pg (25.0-35.0); MCHC 35.2 g/dL (31.0-37.0); Mean Platelet Volume 6.8; Monocytes # (A) 0.4 k/uL (0-1.0); Monocytes % (A) 6 %; Neutrophils % (A) 64 %; Platelet Count 241 k/uL (150-450); RBC 4.11 m/uL (4.30-5.90); RDW 13.8 % (11.5-15.5); WBC 6.1 k/uL (3.8-10.6)
[2020-10-23 07:29] LABS: ALT 52 U/L (4-49); AST 60 U/L (17-59); African American GFR (CKD) >90 (>60 ml/min/1.73 sqM); Albumin 3.3 g/dL (3.5-5.0); Albumin/Globulin Ratio 0.9; Alkaline Phosphatase 137 U/L (38-126); Anion Gap 9 mmol/L; Blood Urea Nitrogen 17 mg/dL (9-20); Calcium 8.7 mg/dL (8.4-10.2); Carbon Dioxide 24 mmol/L (22-30); Chloride 103 mmol/L (98-107); Globulin 3.8 g/dL; Glucose 151 mg/dL (74-99); Non-African American GFR(CKD) >90 (>60 ml/min/1.73 sqM); Potassium 3.8 mmol/L (3.5-5.1); Sodium 136 mmol/L (137-145); Total Bilirubin 1.1 mg/dL (0.2-1.3); Total Protein 7.1 g/dL (6.3-8.2)
[2020-10-23] MEDS ORDERED: ATORVASTATIN 40 MG TAB PO SCH (09:00)
--- NOTE | 2020-10-23 09:50 | P.PN ---
Subjective Progress Note Date: 10/23/20 Principal diagnosis: Generalized weakness dysuria back discomfort muscle weakness and discomfort Constipation Evaluated 80-year-old male this a.m. Patient has significant medical history of coronary artery disease with stenting, hyperlipidemia, hypertension, and hypothyroidism. Patient presented to the emergency department for diffuse muscle aches. Upon evaluation this a.m. patient was resting comfortably in bed. Patient continues to endorse muscle aches, and generalized weakness. 10/23/2020 Evaluated 80-year-old male this a.m., resting comfortably in bed. Patient has a very evaluated by neurology and vascular and infectious disease. carotid ultrasound found to have right-sided carotid stenosis will follow-up outpatient for intervention of his carotid stenosis. patient hasn't had a bowel movement for 8 days will add mag citrate and soapsuds enema. Review diagnostic labs and diagnostic testing this a.m. Patient states decrease pain intensity and increased strength patient will have MRI of hip to rule out right-sided groin pain. Objective - Vital Signs Vital signs: Vital Signs Temp 97.5 F L 10/23/20 06:27 Pulse 77 10/23/20 08:12 Resp 18 10/23/20 08:12 BP 175/101 10/23/20 06:27 Pulse Ox 99 10/23/20 04:45 Intake & Output 10/22/20 10/23/20 10/23/20 18:59 06:59 18:59 Intake Total 360 Balance 360 Intake: Oral 360 Other: Voiding Method Urinal # Voids 3 1 1 - Constitutional General appearance: Present: mild distress - EENT Eyes: Present: EOMI, PERRLA ENT: Present: hard of hearing Ears: bilateral: normal - Neck Thyroid: bilateral: normal size - Respiratory Respiratory: bilateral: CTA (Anterior and posterior lung wright) - Cardiovascular Details: Normal sinus rhythm Heart rate: 74 Rhythm: regular Heart sounds: normal: S1, S2 - Peripheral pulses radial pulse Peripheral Pulses: bilateral: Normal dorsalis pedis Peripheral Pulses: bilateral: Normal - Gastrointestinal General gastrointestinal: Present: decreased bowel sounds, tenderness Localized gastrointestinal: tender: diffuse - Integumentary Integumentary: Present: normal - Neurologic Neurologic: Present: CNII-XII intact - Musculoskeletal Musculoskeletal: Present: generalized weakness - Psychiatric Psychiatric: Present: A&O x's 3, appropriate affect, intact judgment & insight - Allied health notes Allied health notes reviewed: nursing - Labs CBC & Chem 7: 10/23/20 06:23 10/23/20 06:23 Labs: Abnormal Lab Results - Last 24 Hours (Table) 10/22/20 10/23/20 10/23/20 Range/Units 05:52 06:23 06:23 RBC 4.11 L (4.30-5.90) m/uL Hgb 12.6 L (13.0-17.5) gm/dL Hct 35.7 L (39.0-53.0) % Sodium 136 L (137-145) mmol/L Carbon Dioxide 17.8 L (21.6-31.8) mmol/L Anion Gap 14.20 H (4.00-12.00) mmol/L Creatinine 0.65 L (0.66-1.25) mg/dL BUN/Creatinine Ratio 25.71 H (12.00-20.00) Ratio Glucose 172 H 151 H (70-110) mg/dL AST 60 H (17-59) U/L ALT 52 H (4-49) U/L Alkaline Phosphatase 137 H (38-126) U/L Albumin 3.3 L (3.5-5.0) g/dL Microbiology - Last 24 Hours (Table) 10/21/20 18:12 Blood Culture - Preliminary Blood No Growth after 24 hours 10/21/20 14:45 Urine Culture - Final Urine,Voided Assessment and Plan Assessment: Acute urinary tract infection 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
[2020-10-23] MEDS ORDERED: MAGNESIUM CITRATE 296 ML BOTTLE PO ONE (11:00)
--- NOTE | 2020-10-23 11:48 | P.PN ---
Subjective Progress Note Date: 10/23/20 Principal diagnosis: ICA stenosis, history of TIA She was seen and examined lying in bed. He is without any acute changes through the night. He reports pain all over and some left upper extremity weakness due to arthritic pain. He denies any focal deficits. CT angiogram of head and neck shows probably more than 80% stenosis at the origin of the right internal carotid artery, estimated 70% stenosis of the distal right common carotid artery. There is approximately 70% stenosis at the origin of the left external carotid artery. Suboptimal contrast density in the carotid arteries. No significant angiographic abnormality of the brain. Objective - Vital Signs Vital signs: Vital Signs Temp 97.5 F L 10/23/20 06:27 Pulse 77 10/23/20 06:27 Resp 18 10/23/20 06:27 BP 175/101 10/23/20 06:27 Pulse Ox 99 10/23/20 04:45 Intake & Output 10/22/20 10/23/20 10/23/20 18:59 06:59 18:59 Intake Total 360 Balance 360 Intake: Oral 360 Other: Voiding Method Urinal # Voids 3 1 1 - Exam General appearance: The patient is alert, oriented, in no acute distress. HET: Head is normocephalic and atraumatic. Pupils are equal and reactive. Neck: Supple without lymphadenopathy. Trachea midline. Heart: S1 S2. Regular rate and rhythm. Lungs: Clear to auscultation Abdomen: Soft, nontender, nondistended. Extremities: Normal skin color and turgor. No cyanosis, rash, ulceration, clubbing, or edema. Radial and pedal pulses are 2/4 bilaterally. Left hand with joint deformity. Neurological: No focal deficits. Strength and sensation are grossly intact. - Labs CBC & Chem 7: 10/23/20 06:23 10/23/20 06:23 Labs: Abnormal Lab Results - Last 24 Hours (Table) 10/22/20 10/23/20 10/23/20 Range/Units 05:52 06:23 06:23 RBC 4.11 L (4.30-5.90) m/uL Hgb 12.6 L (13.0-17.5) gm/dL Hct 35.7 L (39.0-53.0) % Sodium 136 L (137-145) mmol/L Carbon Dioxide 17.8 L (21.6-31.8) mmol/L Anion Gap 14.20 H (4.00-12.00) mmol/L Creatinine 0.65 L (0.66-1.25) mg/dL BUN/Creatinine Ratio 25.71 H (12.00-20.00) Ratio Glucose 172 H 151 H (70-110) mg/dL AST 60 H (17-59) U/L ALT 52 H (4-49) U/L Alkaline Phosphatase 137 H (38-126) U/L Albumin 3.3 L (3.5-5.0) g/dL Microbiology - Last 24 Hours (Table) 10/21/20 18:12 Blood Culture - Preliminary Blood No Growth after 24 hours 10/21/20 14:45 Urine Culture - Final Urine,Voided Assessment and Plan Assessment: Right internal carotid artery stenosis >80-99% 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 TCAR versus open repair will be discussed with patient, this is recommended as an outpatient procedure. Recommend dual platelet therapy and statin. Thank you for the consultation. The impression and plan of care has been dictated as directed. Dr. Marcelo I performed a history and examination of this patient, discussed the same with the dictator. I agree with the dictator's note ,documented as a scribe. Any additional findings or plans will be noted.
--- NOTE | 2020-10-23 12:26 | P.PN ---
Progress Note - Text Progress Note Date: 10/23/20 Orthopedics: History of present illness: Patient very pleasant 80-year-old female who is seen and examined at bedside for follow-up evaluation and consultation was placed in regards to low back pain and difficulty with ambulation. Patient states approximately 5 days ago he was ambulating normally and performing all regular activities of daily living without difficulty. He was recently able to work outside and paint his camper. He states over the past 5 days he's had significant exacerbation of his symptoms. He has significant pain in his left groin and difficulty lifting his left lower extremity. He states when trying to move his left lower extremity he has pain that radiates from his hip towards his back. He denies any midline low back pain. He states he does have some bilateral flank pain. He denies specific radiculopathy of the bilateral lower extremities. He states he is also been experiencing increasing pain in his bilateral shoulders. He has increased pain with lifting his shoulders above his head. He denies any recent injuries. Since being seen and examined yesterday, he has had significant improvement of his orthopedic symptoms overall. He is not able to ambulate without the assistance of a walker. He is currently sitting in the bedside chair. He is able to perform hip flexion bilaterally without significant difficulty. He is able to perform active range of motion bilateral lower extremities without sign ificant pain. He is also not able to lift his arms above his head bilaterally with less difficulty as compared to yesterday. He has better range of motion of the upper extremities bilaterally in regards to his shoulders as compared to yesterday. He is very happy with his progress since yesterday. He continues to work with physical therapy. He states he does have a walker at home if needed. He does continue to be seen and examined by neurology. He has had some difficulty with his vision lately states he has seeing double vision. He also had an episode of slurred speech. 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 Angiography CT imaging was taken yesterday which showed evidence of 70% stenosis at the distal right common carotid artery, probably greater than 80% stenosis at the origin of the right internal carotid artery, and approximately 70% stenosis of the origin of the left external carotid artery. Consultation was placed with vascular surgery. They state based on his imaging and symptomology, he is a candidate for surgical intervention at his carotid arteries. Patient states at the bedside he feels his carotid arteries are what he should focus his treatment on. He also continues to be treated for recurrent acute urinary tract infection. This is his third urinary tract infection. He was scheduled to see Dr. Simental in the outpatient setting but canceled this appointment after his admittance to the hospital. Consultation was placed with infectious disease and Dr. Duong has seen the patient. He continues to be seen and examined by medicine. His other medical diagnoses include history of abdominal aortic aneurysm, diplopia, episode of slurred speech, coronary artery disease, hyperlipidemia, hypertension, and thyroid disorder. He was scheduled to have an MRI of the pelvis this morning but this was unable to be performed as the patient could not fit in the machine. Physical exam: Patient is awake, alert, and oriented 3; patient currently sitting in a bedside chair Vital signs stable Good chest excursion with deep inspiration and expiration Examination of lumbar spine reveals skin is intact with no abrasions, lacerations, or bruises; no erythema, purulence or signs of infection No pain on palpation along the midline of the lumbosacral spine Some bilateral pain with palpation of the lateral lumbar spine towards the flank Dorsiflexion, plantarflexion, and extensor hallucis longus positive sustained bilaterally Patient is able to perform active hip flexion and knee extension bilaterally without significant difficulty No significant pain with active range of motion of the hips bilaterally. Evidence of a well-healed incision over the anterior knee bilaterally No lower extremity hyperreflexia bilaterally No signs or symptoms of DVT; no calf pain Neurovascularly intact Some pain on palpation of the bilateral acromioclavicular joints No significant bruising, swelling, or erythema over the bilateral shoulders Patient is able to perform better active range of motion bilateral shoulders with better range of motion without significant pain Pertinent studies: Angiography CT taken on 10/22/2020: Evidence of 70% stenosis at the distal right common carotid artery, probably greater than 80% stenosis at the origin of the right internal carotid artery, and approximately 70% stenosis of the origin of the left external carotid artery. CT of the lumbar spine taken on 10/21/2020: L2-3 degenerative disc disease and retrolisthesis with anterior and posterior osteophytic spurring with mild spinal canal stenosis; L3-4 degenerative disc disease with anterior osteophytic spurring; L4-5 severe facet hypertrophy, bulging, and ligamentum flavum hypertrophy resulting in mild spinal canal stenosis; L5-S1 spondylolisthesis, severe facet hypertrophy with bony bridging ankylosis of the facet joints, and far lateral disc osteophyte complex with some compression to the left L5 nerve root left foraminal stenosis; no evidence of vertebral body compression fracture deformities X-ray of the pelvis taken on 10/21/2020: Advanced axial joint space loss of the left hip with moderate spurring; moderate axial joint space loss of the right hip; no acute fracture dislocation within the pelvis X-rays of the bilateral shoulders taken on 10/21/2020: Moderate arthritis of the bilateral acromioclavicular joint with greater degree of marginal spurring and capsular hypertrophy on the right; some bony irregularity at the right greater tuberosity suggestive of underlying chronic rotator cuff tendinopathy; no fracture dislocation within the bilateral shoulders Assessment: Carotid stenosis bilaterally Increased ability to ambulate as compared to yesterday Severe osteoarthritis left hip joint spacing Moderate osteoarthritis right hip joint spacing Bilateral flank pain L2-3 retrolisthesis and spinal canal stenosis and lumbar L4-5 mild spinal canal stenosis Lumbar degenerative disc disease Lumbar and lumbosacral facet arthropathy L5-S1 spondylolisthesis and left foraminal stenosis Bilateral acromioclavicular osteoarthritis Bilateral shoulder pain, improving History of bilateral total knee arthroplasty Acute recurrent urinary tract infection Episode of slurred speech Diplopia Coronary artery disease Hyperlipidemia Hypertension Thyroid disorder History of abdominal aortic aneurysm History of right frontal ischemic stroke Plan: 1. After reviewing of imaging, physical examination of the patient, and further discussion with the patient, We are NOT currently planning for acute surgical intervention at his left hip and do feel he should work through conservative treatment with physical therapy as scheduled during his admission to the hospital. Review of imaging does show severe osteoarthritis at the axial joint space. Since being seen and examined yesterday, he has had significant improvement of his left hip pain. He is not able to ambulate in the room without the assistance of a walker. He is able to perform active range of motion of the bilateral hips without any significant difficulty. Pelvis MRI was unable to be performed due to the patient's size. Given his significant improvement as compared to yesterday, and is increased ambulation, I do not currently feel the pelvis MRI is required. He does continue to have some pain but states his back pain is over the flanks bilaterally but feels his pain is adequately controlled.. He denies any midline back pain. Reviewing the imaging does show some degenerative changes with multilevel stenosis, degenerative disc disease, and listhesis. We are NOT planning for any acute surgical intervention in regards to his lumbar spine. He does have evidence of osteoarthritis of the bilateral acromioclavicular joints. Today he has significant improvement and is able to perform active range of motion of bilateral shoulders without significant pain and has better range of motion as compared to yesterday. We will continue with conservative treatment. We discussed he is encouraged to continue working with physical therapy for range of motion and better pain control regards to his bilateral shoulders. He is also encouraged to continue working with physical therapy to increase his mobility and ambulation. We did again discuss if he were to fail conservative treatment with therapy he'll most likely be a candidate for a left total hip arthroplasty. Given his previous surgical history with bilateral total knee arthroplasty performed by Dr. García Laboy, we will plan to have him follow up with Dr. García Laboy for further treatment and evaluation in approximately 2-3 weeks at [facility] following discharge. From an orthopedic standpoint, patient is clear for discharge. 2. Patient will continue with evaluation by multiple medical providers including medicine, vascular surgery, infectious disease, and neurology. Patient is undergoing further lab testing as ordered by neurology. More recently he did have an episode of slurred speech as well as diplopia. Recent angiography CT imaging did show evidence of carotid stenosis. He has been seen by vascular surgery who states the patient could be a candidate for surgical intervention. It was discussed in detail with the patient and the patient's nurse that we are NOT currently planning for any acute surgical intervention in regards to his lumbosacral spine, bilateral hips, or bilateral shoulders. Patient may be started on Plavix at the discretion of neurology.
[2020-10-23] MEDS: CLOPIDOGREL 75 MG TAB PO SCH (14:16)
--- NOTE | 2020-10-23 16:29 | P.PN ---
Subjective Progress Note Date: 10/23/20 And he stated that he is doing drastically better today compared that to his initial presentation. He continues to have some mild left hip pain and he's been walking with the therapy. He feels like when he walks he does have pain in the left hip but not the a drastic as a initial presentation. He said that he had a bowel movements and is feeling better. Denies of any further episodes slurring the speech. Today he was supposed to get MRI of the pelvis but he could not get it because she could not fit in. Orthopedic not want the pelvis MRI per the patient nurse. As a result of his improvement and the since orthopedic didn't need it's no further investigation of the pelvis region and I'll defer that the of any further investigation regarding the pelvis all deferred to orthopedic team. Also orthopedic team as stated that the patient is not go for any acute intervention and was a typo on their dictation note. Objective - Vital Signs Vital signs: Vital Signs Temp 97.4 F L 10/23/20 13:46 Pulse 79 10/23/20 13:46 Resp 20 10/23/20 13:46 BP 142/75 10/23/20 13:46 Pulse Ox 97 10/23/20 13:46 Intake & Output 10/22/20 10/23/20 10/23/20 18:59 06:59 18:59 Intake Total 360 Balance 360 Intake: Oral 360 Other: Voiding Method Urinal # Voids 3 1 1 # Bowel Movements 1 - Exam GENERAL: The patient is lying in bed and is in moderate acute distress. NEUROLOGICAL: Higher mental function: The patient is awake, alert, oriented to self, place and time. Patient is following commands. No aphasia and no neglect. Cranial nerves: The pupils are round, equal and reactive to light and accommodation. Visual wright are full to confrontation throughout. Extraocular movement is intact no nystagmus is noted. No ptosis upon upward gazed for 1 minute. Facial sensation is normal to touch throughout. The facial strength is normal throughout. Hearing is moderately decreased bilaterally to hand rub. Tongue is midline and moved [id number] without any difficulty. No dysarthria is noted. Shoulder shrug is limited because of patient's pain. 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 Left lower extremity was ate least 5- but limited because of pain and right lower extremity was 5/5. Normal tone and bulk. Sensation: Sensation is normal to touch throughout. Plantars are downgoing bilaterally. - Labs CBC & Chem 7: 10/23/20 06:23 10/23/20 06:23 Labs: Abnormal Lab Results - Last 24 Hours (Table) 10/23/20 10/23/20 Range/Units 06:23 06:23 RBC 4.11 L (4.30-5.90) m/uL Hgb 12.6 L (13.0-17.5) gm/dL Hct 35.7 L (39.0-53.0) % Sodium 136 L (137-145) mmol/L Creatinine 0.65 L (0.66-1.25) mg/dL Glucose 151 H (74-99) mg/dL AST 60 H (17-59) U/L ALT 52 H (4-49) U/L Alkaline Phosphatase 137 H (38-126) U/L Albumin 3.3 L (3.5-5.0) g/dL Microbiology - Last 24 Hours (Table) 10/21/20 18:12 Blood Culture - Preliminary Blood No Growth after 24 hours 10/21/20 14:45 Urine Culture - Final Urine,Voided Assessment and Plan Assessment: Episode of slurring speech (per family members): Possibly Transient ischemic attack Diplopia upon prolonged watching television for the past 1-2 month is concerning for myasthenia gravis Symptomatic right internal carotid artery (>70% stenosis per carotid duplex) 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 Possible left lateral disc osteophyte complex at L5 to S1 may impinge the extraforaminal left L5 nerve root per CT lumbar Osteoarthritis of bilateral shoulder region Acute recurrent Urinary tract infection History of abdominal aortic aneurysm (4.5cm) Plan: Is on ASA 81mg and added Plavix 75mg and to continue dual antiplateletes due to carotid stenosis. I increased Lipitor from 40 mg to 80mg daily which will help stablize carotid plaque. vascular surgery team is on board and we agreed no surgical intervention as inpatient and patient will follow-up with them as outpatient. Patient hemoglobin A1c 7.2 which is the elevated. The CK level the repeated one is 41 which is normal. TSH is 3.90 which is normal. AST of 29 and the ALT of 24 which are normal. Rheumatoid factor is 58 which is elevated. ANNE screen is negative. Anti [place]ba 1 IgG antibody is less than 0.2 which is normal Noah 1 antibody and it is negative. SSA antibody is less than 0.2 which is normal SSB antibody was less than 0.2 which is normal. Aldolase 5.3 (normal). Carotid duplex is reported as hemodynamic significant stenosis of the proximal internal carotid artery of the right corresponding to greater than 70% diameter reduction by Doppler criteria, and in direct measurement of carotid stenosis. 2-D echo was reported as this was technically difficult study with suboptimal views. Overall left ventricle systolic function was normal with ejection fraction of 55-60%. There is moderate concentric ventricular hypertrophy at. Left atrium is mildly dilated. Continue every 4 hours neuro checks. Placed the patient on continuous cardiac monitoring. Pending acetylcholine receptor antibody, myoglobin. Patient needs to follow-up with a neurologist as outpatient within 1-2 weeks. Recommend EMG with nerve conduction study as an outpatient. Orthopedic surgical team is on board. Infection disease team was consulted. The plan is discussed with the patient's nurse. There is no further neurological work-up. Neurology will sign off. Please reconsult if needed. Jake Jean M.D. Neuro-hospitalist Time with Patient: Less than 30
--- NOTE | 2020-10-23 18:45 | PN ---
PROGRESS NOTE DATE OF SERVICE: 10/23/2020 REASON FOR FOLLOWUP: Urinary tract infection. INTERVAL HISTORY: The patient is currently afebrile. The patient is feeling better, breathing comfortably. Denies having any chest pain or shortness of breath or cough. No abdominal pain. Urinary symptoms have improved. PHYSICAL EXAMINATION: Blood pressure 142/75, pulse of 79, temperature 97.4. He is 97% on room air. General description is an elderly male up in the chair in no distress. RESPIRATORY SYSTEM: Unlabored breathing. Clear to auscultation. HEART: S1, S2. Regular rate and rhythm. ABDOMEN: Soft. No tenderness. LABS: Hemoglobin is 12.3, white count 6.9, BUN of 17, creatinine 0.65. DIAGNOSTIC IMPRESSION AND PLAN: Patient admitted to hospital with urinary symptoms, positive UA and recurrent urinary tract infections. Patient clinically responded to Rocephin. The culture has been negative. To continue with Rocephin and transition to a short course of oral Ceftin on discharge. Continue supportive care. MMODL / IJN: [id number] /
[2020-10-24] MEDS: Acetaminophen-Codeine 300-30mg TAB PO PRN (01:59)
[2020-10-24] MEDS: LEVOTHYROXINE 50 MCG TAB PO SCH (05:47)
[2020-10-24 06:34] LABS: Basophils # (A) 0.1 k/uL (0-0.2); Basophils % (A) 1 %; Eosinophils # (A) 0.3 k/uL (0-0.7); Eosinophils % (A) 4 %; Lymphocytes # (A) 1.3 k/uL (1.0-4.8); Lymphocytes % (A) 22 %; MCH 30.9 pg (25.0-35.0); MCHC 35.2 g/dL (31.0-37.0); MCV 87.6 fL (80.0-100.0); Mean Platelet Volume 6.7; Monocytes # (A) 0.4 k/uL (0-1.0); Monocytes % (A) 6 %; Neutrophils # (A) 3.8 k/uL (1.3-7.7); Neutrophils % (A) 65 %; Platelet Count 235 k/uL (150-450); RBC 4.23 m/uL (4.30-5.90); RDW 13.7 % (11.5-15.5); WBC 5.9 k/uL (3.8-10.6)
[2020-10-24 06:42] LABS: ALT 81 U/L (4-49); AST 77 U/L (17-59); African American GFR (CKD) >90 (>60 ml/min/1.73 sqM); Albumin 3.4 g/dL (3.5-5.0); Albumin/Globulin Ratio 0.9; Alkaline Phosphatase 160 U/L (38-126); Anion Gap 9 mmol/L; Blood Urea Nitrogen 18 mg/dL (9-20); Calcium 8.8 mg/dL (8.4-10.2); Carbon Dioxide 24 mmol/L (22-30); Chloride 100 mmol/L (98-107); Globulin 3.7 g/dL; Glucose 148 mg/dL (74-99); Magnesium 2.2 mg/dL (1.6-2.3); Non-African American GFR(CKD) >90 (>60 ml/min/1.73 sqM); Potassium 3.9 mmol/L (3.5-5.1); Sodium 133 mmol/L (137-145); Total Bilirubin 0.9 mg/dL (0.2-1.3); Total Protein 7.1 g/dL (6.3-8.2)
[2020-10-24] MEDS: PANTOPRAZOLE 40 MG TABLET PO SCH (08:55)
[2020-10-24] MEDS ORDERED: ATORVASTATIN 80 MG TAB PO SCH ×2 (09:00→21:00)
[2020-10-24] MEDS: CLOPIDOGREL 75 MG TAB PO SCH (09:48)
[2020-10-24] MEDS: METOPROLOL SUCCINATE (ER) 50 MG TAB.ER.24H PO SCH (09:48)
[2020-10-24] MEDS: CALCIUM CARB-VIT D 500 MG-5 MCG TAB PO SCH (09:48)
[2020-10-24] MEDS: ISOSORBIDE MONONITRATE ER 60 MG TAB.ER.24H PO SCH (09:49)
[2020-10-24] MEDS: ASPIRIN 81 MG PO SCH (09:49)
--- NOTE | 2020-10-24 11:53 | P.PN ---
Subjective Progress Note Date: 10/24/20 Principal diagnosis: ICA stenosis, history of TIA The patient is seen and examined lying in bed. He had no acute changes through the night. Denies any focal deficits. Objective - Vital Signs Vital signs: Vital Signs Temp 99.1 F 10/24/20 08:08 Pulse 75 10/24/20 08:08 Resp 16 10/24/20 08:08 BP 126/75 10/24/20 08:08 Pulse Ox 96 10/24/20 08:08 Intake & Output 10/23/20 10/24/20 10/24/20 18:59 06:59 18:59 Intake Total 100 Balance 100 Intake: Oral 100 Other: Voiding Method Urinal # Voids 2 # Bowel Movements 1 1 - Exam General appearance: The patient is alert, oriented, in no acute distress. HET: Head is normocephalic and atraumatic. Pupils are equal and reactive. Neck: Supple without lymphadenopathy. Trachea midline. Heart: S1 S2. Regular rate and rhythm. Lungs: Clear to auscultation Abdomen: Soft, nontender, nondistended. Extremities: Normal skin color and turgor. No cyanosis, rash, ulceration, clubbing, or edema. Radial and pedal pulses are 2/4 bilaterally. Left hand with joint deformity. Neurological: No focal deficits. Strength and sensation are grossly intact. 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 TCAR versus open repair will be discussed with patient, this is recommended as an outpatient procedure. Recommend dual platelet therapy and statin. Thank you for the consultation. The impression and plan of care has been dictated as directed. Dr. العراقي I performed a history and examination of this patient, discussed the same with the dictator. I agree with the dictator's note ,documented as a scribe. Any additional findings or plans will be noted.
--- NOTE | 2020-10-24 14:59 | PN ---
PROGRESS NOTE DATE OF SERVICE: 10/24/2020 REASON FOR FOLLOWUP: Urinary tract infection. INTERVAL HISTORY: The patient is afebrile. The patient is breathing comfortably. The patient denies having any chest pain, shortness of breath or cough. No abdominal pain and urinary symptoms have resolved. PHYSICAL EXAMINATION: Blood pressure 146/76, pulse 65, temperature 98.6. He is 95% on room air. General description is an elderly male lying in bed in no distress. RESPIRATORY SYSTEM: Unlabored breathing, clear to auscultation anteriorly. HEART: S1, S2. Regular rate and rhythm. ABDOMEN: Soft. No tenderness. LABS: White count normal at 5.9. Blood and urine culture so far negative. DIAGNOSTIC IMPRESSION AND PLAN: Patient admitted to the hospital with multiple symptoms including urinary burning with concern for urinary tract infection. Patient responded to Rocephin with resolution of his symptoms. Culture negative. May consider a short course of oral Ceftin or and close outpatient followup. MMODL / IJN: [id number] /
--- NOTE | 2020-10-24 17:45 | P.PN ---
Subjective Progress Note Date: 10/24/20 Principal diagnosis: Generalized weakness dysuria back discomfort muscle weakness and discomfort Constipation Evaluated 80-year-old male this a.m. Patient has significant medical history of coronary artery disease with stenting, hyperlipidemia, hypertension, and hypothyroidism. Patient presented to the emergency department for diffuse muscle aches. Upon evaluation this a.m. patient was resting comfortably in bed. Patient continues to endorse muscle aches, and generalized weakness. 10/23/2020 Evaluated 80-year-old male this a.m., resting comfortably in bed. Patient has a very evaluated by neurology and vascular and infectious disease. carotid ultrasound found to have right-sided carotid stenosis will follow-up outpatient for intervention of his carotid stenosis. patient hasn't had a bowel movement for 8 days will add mag citrate and soapsuds enema. Review diagnostic labs and diagnostic testing this a.m. Patient states decrease pain intensity and increased strength patient will have MRI of hip to rule out right-sided groin pain. 10/24/2020 Evaluated 80-year-old male this a.m., patient resting comfortably in bed. Patient and laboratory throughout the room without difficulty. Patient has elevation in liver enzymes consulted gastro-enterology for further investigation neurology and orthopedics have signed off on the case axis disease recommend Omnicef twice a day for 7 days for urinary tract infection. He denies any complaints at this time Objective - Vital Signs Vital signs: Vital Signs Temp 98.6 F 10/24/20 13:10 Pulse 65 10/24/20 13:10 Resp 17 10/24/20 13:10 BP 146/76 10/24/20 13:10 Pulse Ox 95 10/24/20 13:10 Intake & Output 10/23/20 10/24/20 10/24/20 18:59 06:59 18:59 Intake Total 100 Balance 100 Intake: Oral 100 Other: Voiding Method Toilet # Voids 2 # Bowel Movements 1 1 - Constitutional General appearance: Present: cooperative - EENT Eyes: Present: EOMI, PERRLA ENT: Present: normal oropharynx Ears: bilateral: normal - Neck Neck: Present: normal ROM Thyroid: bilateral: normal size - Respiratory Respiratory: bilateral: CTA - Cardiovascular Details: Normal sinus rhythm Heart rate: 72 Rhythm: regular Heart sounds: normal: S1, S2 - Peripheral pulses posterior tibial Peripheral Pulses: bilateral: Normal radial pulse Peripheral Pulses: bilateral: Normal - Gastrointestinal General gastrointestinal: Present: normal bowel sounds - Integumentary Integumentary: Present: normal - Neurologic Neurologic: Present: CNII-XII intact - Musculoskeletal Musculoskeletal: Present: gait normal - Psychiatric Psychiatric: Present: A&O x's 3, appropriate affect, intact judgment & insight - Allied health notes Allied health notes reviewed: nursing - Labs CBC & Chem 7: 10/24/20 05:36 10/24/20 05:36 Labs: Abnormal Lab Results - Last 24 Hours (Table) 10/24/20 10/24/20 Range/Units 05:36 05:36 RBC 4.23 L (4.30-5.90) m/uL Hct 37.0 L (39.0-53.0) % Sodium 133 L (137-145) mmol/L Glucose 148 H (74-99) mg/dL AST 77 H (17-59) U/L ALT 81 H (4-49) U/L Alkaline Phosphatase 160 H (38-126) U/L Albumin 3.4 L (3.5-5.0) g/dL Microbiology - Last 24 Hours (Table) 10/21/20 18:12 Blood Culture - Preliminary Blood No Growth after 48 hours Assessment and Plan Assessment: Acute urinary tract infection 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 L2 to L3 L3 to L4 and L5 to S1 with mild stenosis abdominal aortic aneurysm measuring 4.5 cm stenosis of carotid artery Elevated liver enzymes elevated RA marker Cholelithiasis hypertension hyperlipidemia hypothyroidism full code Plan: Urinary tract infection broad-spectrum antibiotics difficulty with ambulation consult neurology and orthopedic Consultation with vascular for right carotid stenosis outpatient arrangement for carotid intervention Elevated liver enzymesconsult the GI for recommendations and treatment plan continue to monitor labs and vital signs continue home medications continue medical management Hopeful discharge tomorrow further recommendations to come based on patient's clinical condition Time with Patient: Greater than 30
--- NOTE | 2020-10-24 18:13 | CONS ---
CONSULTATION DATE OF DICTATION: 10/24/2020 REASON FOR CONSULTATION: Elevated LFTs. HISTORY OF PRESENT ILLNESS: The patient is a 80-year-old pleasant white male with history of coronary artery disease, status post angioplasty with stent placement, history of hypertension, hyperlipidemia and hypothyroidism who was admitted to the hospital with urinary tract infection that failed outpatient therapy. The patient was started on broad-spectrum antibiotics and he is doing much better. The patient is being discharged home today. However, he was noted to have mild elevation of serum transaminases and hence we are consulted in regard to this issue. At the time of admission to the hospital, his serum transaminases were within normal limits, with AST and ALT at 29 and 24, respectively, and T-bilirubin was 1.4. Today AST is 77, ALT is 81, and alkaline phosphatase is 160. On review of his medications, the patient was diagnosed to have hypercholesteremia several years ago and has been on atorvastatin 40 mg daily. During this hospitalization the patient was also diagnosed with right carotid stenosis and Vascular Surgery is following the patient closely. He is scheduled for surgery in a week from today. In the meantime, the Lipitor was increased to 80 mg daily. Patient denies any abdominal pain. No nausea, no vomiting. No fever, chills or night sweats. PAST MEDICAL HISTORY: Past medical history is significant for hypertension, hyperlipidemia, coronary artery disease, hypothyroidism, urinary tract infection, gastroesophageal reflux disease. ALLERGIES: NONE. MEDICATIONS: Medications at home include omeprazole, Nitrostat, niacin, Toprol, Synthroid, Imdur, Flexeril, Omnicef, calcium, Lipitor, Ecotrin, Tylenol No.3. FAMILY HISTORY: Unremarkable. PAST SURGICAL HISTORY: Cardiac stent, abdominal aortic aneurysm that is being closely watched, tonsillectomy, bilateral cataract surgery. REVIEW OF SYSTEMS: CARDIOPULMONARY: No chest pain or shortness of breath. GENITOURINARY: No dysuria or hematuria. MUSCULOSKELETAL: Unremarkable. SKIN: Unremarkable. ENDOCRINE: Unremarkable. PSYCHIATRIC: Unremarkable. NEUROLOGY: History of CVA/TIA. ENT/VISION: Unremarkable. CONSTITUTIONAL: No recent weight loss. No fever, chills, night sweats. HEMATOLOGY: Unremarkable. PHYSICAL EXAMINATION: He appears comfortable. VITAL SIGNS: Stable. Blood pressure 146/76, pulse rate 65, temperature 98.6. HEENT examination unremarkable. Conjunctivae pink. Sclerae anicteric. Oral cavity no lesions. NECK: No JVD or lymph node enlargement. CHEST: Clear to auscultation. HEART: Regular rate and rhythm. ABDOMEN: Soft. Bowel sounds are positive. No organomegaly. EXTREMITIES: No pedal edema. SKIN: No rashes. NEUROLOGIC: Alert and oriented x3. No focal deficits. LABS: On October 21, ALT and AST were normal. T-bilirubin was 1.4. Today T-bilirubin is 0.9, AST 77, ALT 81, alkaline phosphatase 160. Coronavirus PCR is negative. IMPRESSION: 1. Mild elevation of serum transaminases, most likely medication-induced hepatitis. The patient has no history of chronic liver disease or underlying liver disease diagnosed in the past. No history of jaundice or hepatitis. He is currently maintained on Lipitor 40 mg daily for history of hypercholesteremia several years ago which was increased to 80 mg daily today; he has not received the dose yet. It is likely that the mild elevation of serum transaminases is antibiotic-related that he has been receiving for UTI. Of course, other etiologies cannot be excluded. 2. Urinary tract infection, on broad-spectrum antibiotics. 3. History of hypercholesteremia, on Lipitor 40 mg daily. 4. History of hypertension. 5. History of gastroesophageal reflux disease. RECOMMENDATIONS: Since the serum transaminases are only minimally elevated, at this time we can continue to watch them closely. The patient is already being discharged home, which is okay from GI standpoint. He was advised to follow up in the office in a couple of weeks, and based on his LFTs we will consider further workup if indicated. For now, we will continue with Lipitor 40 mg daily and hold off on increasing the dose until after carotid endarterectomy. We will follow with you closely. Thank you for this consultation. MMODL / IJN: [id number] /
[2020-10-24] MEDS ORDERED: ATORVASTATIN 20 MG TAB PO SCH (21:00)
[2020-10-24 22:56] LABS: Hepatitis A Antibody IgM Non-Reactive (Non-Reactive); Hepatitis B Core IgM Non-Reactive (Non-Reactive); Hepatitis B Surface Antigen Non-Reactive (Non-Reactive); Hepatitis C IgG Antibody Non-Reactive (Non-Reactive)
[2020-10-25] MEDS: LEVOTHYROXINE 50 MCG TAB PO SCH (05:37)
[2020-10-25 07:41] LABS: Basophils # (A) 0.1 k/uL (0-0.2); Basophils % (A) 1 %; Eosinophils # (A) 0.3 k/uL (0-0.7); Eosinophils % (A) 4 %; HCT 36.7 % (39.0-53.0); HGB 12.4 gm/dL (13.0-17.5); Lymphocytes # (A) 1.5 k/uL (1.0-4.8); Lymphocytes % (A) 23 %; MCH 29.6 pg (25.0-35.0); MCHC 33.7 g/dL (31.0-37.0); MCV 87.9 fL (80.0-100.0); Mean Platelet Volume 6.9; Monocytes # (A) 0.4 k/uL (0-1.0); Monocytes % (A) 6 %; Neutrophils # (A) 4.3 k/uL (1.3-7.7); Neutrophils % (A) 65 %; Platelet Count 270 k/uL (150-450); RBC 4.18 m/uL (4.30-5.90); RDW 13.8 % (11.5-15.5); WBC 6.6 k/uL (3.8-10.6)
[2020-10-25 08:17] VITALS: BP 145/78; PULSE 75; RESP 16; TEMP 97.6
[2020-10-25] MEDS: ASPIRIN 81 MG PO SCH (08:42)
[2020-10-25] MEDS: METOPROLOL SUCCINATE (ER) 50 MG TAB.ER.24H PO SCH (08:42)
[2020-10-25] MEDS: ISOSORBIDE MONONITRATE ER 60 MG TAB.ER.24H PO SCH (08:43)
[2020-10-25] MEDS: CALCIUM CARB-VIT D 500 MG-5 MCG TAB PO SCH (08:43)
[2020-10-25] MEDS: CLOPIDOGREL 75 MG TAB PO SCH (08:43)
[2020-10-25] MEDS: PANTOPRAZOLE 40 MG TABLET PO SCH (08:46)
[2020-10-25 12:01] LABS: African American GFR (CKD) 99.2 (60.0-200.0); Albumin 3.6 g/dL (3.80-4.90); Albumin/Globulin Ratio 1.2 (1.60-3.17); Anion Gap 11.3 mmol/L (4.00-12.00); BUN/Creat Ratio 22.5 Ratio (12.00-20.00); Calcium 8.7 mg/dL (8.7-10.3); Carbon Dioxide 22.7 mmol/L (21.6-31.8); Non-African American GFR(CKD) 85.6 (60.0-200.0); Potassium 4.1 mmol/L (3.5-5.5); Total Bilirubin 0.7 mg/dL (0.2-1.2); Total Protein 6.6 g/dL (6.2-8.2)
--- NOTE | 2020-10-25 12:28 | US ---
EXAMINATION TYPE: US liver DATE OF EXAM: 10/25/2020 COMPARISON: NONE CLINICAL HISTORY: elevated liver enzymes. EXAM MEASUREMENTS: Liver Length: 19.5 cm Gallbladder Wall: 0.2 cm CBD: 0.4 cm Right Kidney: 11.4 x 5.6 x 5.2 cm Large body habitus with extensive overlying bowel gas. Pancreas: Obscured by bowel gas Liver: limited views, measures large Gallbladder: stones, possible sludge Evidence for sonographic Laboy's sign: no CBD: wnl Right Kidney: wnl IMPRESSION: 1. Cholelithiasis versus sludge balls. 2. Mild fatty infiltration of the liver. Hepatomegaly is present.
--- NOTE | 2020-10-29 06:57 | P.DS ---
Providers Date of admission: 10/21/20 15:32 Expected date of discharge: 10/29/20 Attending physician: Oswald Ashraf Consults: 10/21/20 15:32 Consult Physician Urgent Consulting Provider: Jake Jean Consult Reason/Comments: actute left leg weakness, previous cva on ct Do you want consulting provider notified?: Yes 10/21/20 15:33 Consult Physician Urgent Consulting Provider: Nicole Duong Consult Reason/Comments: acute uti, failed outpatient treatment Do you want consulting provider notified?: Yes 10/21/20 17:16 Consult Physician Urgent Consulting Provider: Gail Dennis Consult Reason/Comments: Left groin tenderness and degenerative spine disease Do you want consulting provider notified?: Yes 10/22/20 14:29 Consult Physician Urgent Consulting Provider: Win Hopkins Consult Reason/Comments: carotid stenosis Do you want consulting provider notified?: Yes 10/24/20 09:33 Consult Physician Urgent Consulting Provider: Efrain Vega Consult Reason/Comments: elevated liver enzymes Do you want consulting provider notified?: Yes Primary care physician: Oswald Ashraf Hospital Course: 80-year-old male was admitted to the hospital on 10/21/2020 with the complaint of generalized weakness, dysuria, chronic back pain, and intermittent constipation. Patient has significant medical history of coronary artery disease with stenting, hyperlipidemia, hypertension, and hypothyroidism. Patient was found to have a urinary tract infection with significant deconditioning and muscle pain.neurology, orthopedics, infectious disease disease, and vascular surgery. Upon hospital admission patient was found to have significant carotid artery stenosispatient to follow-up with vascular surgeon outpatient for intervention of carotid stenosis. Patient was treated with broad-spectrum antibiotics for urinary tract infection. Patient was evaluated and treated by physical therapy/occupational therapy for generalized muscle aches and discomfort, he was able and throughout room upon discharge. Patient did to be discharged home on Plavix and aspirin for carotid stenosis. Neurology recommended high-dose statin therapyelevated liver enzymesgastroenterology was consulted recommended low-dose Lipitor at 20 mg until normalized liver enzymes and continue to watch for transient elevation with statin therapy. Patient to follow-up with primary care in 1-2 days, vascular surgeon for outpatient continue workup and intervention treatment plan for carotid stenosis. Patient stable upon discharge Assessment: Acute urinary tract infection Mild to moderate multi-degenerative disc disease grade 1 spondylolisthesis of T12 to L4, and L5 to S1 with mild stenosis Abdominal aortic aneurysm measuring 4.5 cm Carotid artery stenosis Elevated liver enzymes Elevated RA marker Cholelithiasis Hypertension Hyperlipidemia Hypothyroidism Full code Health Concerns: Multiple comorbidities Pertinent Studies: CT of the head without contrast CT of lumbar spine Pelvis x-ray KUB x-ray Renal ultrasound Carotid ultrasound Echocardiogram CT angiogram CT of the neck Liver ultrasound Procedures: None performed Patient Condition at Discharge: Stable Plan - Discharge Summary Discharge Rx Participant: Yes New Discharge Prescriptions: New Atorvastatin Calcium [Lipitor] 20 mg PO HS #30 tab Clopidogrel [Plavix] 75 mg PO DAILY 30 Days #30 tab Continue Omeprazole 20 mg PO DAILY Nitroglycerin Sl Tabs [Nitrostat] 0.4 mg SL Q5M PRN PRN Reason: Chest Pain Metoprolol Succinate (ER) [Toprol XL] 50 mg PO DAILY Isosorbide Mononitrate ER [Imdur] 60 mg PO DAILY Aspirin EC [Ecotrin Low Dose] 81 mg PO DAILY Levothyroxine Sodium [Synthroid] 50 mcg PO DAILY Cyclobenzaprine [Flexeril] 10 mg PO TID PRN PRN Reason: Muscle Spasm Niacin (Inositol Niacinate) [Niacin 500 mg Capsule] 1,000 mg PO DAILY Caclium 600mg W/Vitamin D3 1 tab PO DAILY Cefdinir [Omnicef] 300 mg PO Q12H #14 cap Acetaminophen-Codeine 300-30mg [Tylenol w/codeine #3] 1 tab PO Q6H PRN #12 tablet PRN Reason: Pain Fish Oil 600mg 1 cap PO DAILY Discontinued Atorvastatin [Lipitor] 40 mg PO DAILY Discharge Medication List Aspirin EC [Ecotrin Low Dose] 81 mg PO DAILY 10/30/16 [History] Isosorbide Mononitrate ER [Imdur] 60 mg PO DAILY 10/30/16 [History] Metoprolol Succinate (ER) [Toprol XL] 50 mg PO DAILY 10/30/16 [History] Nitroglycerin Sl Tabs [Nitrostat] 0.4 mg SL Q5M PRN 10/30/16 [History] Omeprazole 20 mg PO DAILY 10/30/16 [History] Levothyroxine Sodium [Synthroid] 50 mcg PO DAILY 01/13/18 [History] Acetaminophen-Codeine 300-30mg [Tylenol w/codeine #3] 1 tab PO Q6H PRN #12 tablet 10/19/20 [Rx] Caclium 600mg W/Vitamin D3 1 tab PO DAILY 10/19/20 [History] Cyclobenzaprine [Flexeril] 10 mg PO TID PRN 10/19/20 [History] Fish Oil 600mg 1 cap PO DAILY 10/19/20 [History] Niacin (Inositol Niacinate) [Niacin 500 mg Capsule] 1,000 mg PO DAILY 10/19/20 [History] Atorvastatin Calcium [Lipitor] 20 mg PO HS #30 tab 10/25/20 [Rx] Cefdinir [Omnicef] 300 mg PO Q12H #14 cap 10/25/20 [Rx] Clopidogrel [Plavix] 75 mg PO DAILY 30 Days #30 tab 10/25/20 [Rx] Follow up Appointment(s)/Referral(s): Oswald Ashraf MD [Primary Care Provider] - 10/29/20 2:30 pm Heather Kwon PAC [REFERRING] - 10/31/20 1:30 pm García Laboy MD [STAFF PHYSICIAN] - 3 Weeks (Patient may follow-up with Dr. García Laboy at [facility] in 2-3 weeks following discharge. ) Patient Instructions/Handouts: Atorvastatin (By mouth), Clopidogrel (By mouth), Cefdinir (By mouth), Urinary Tract Infection in Men (DC), Hip Pain (ED) Discharge Disposition: HOME SELF-CARE
== END 2020-10-25 12:26 | disposition home or self-care (01) | DRG 690 ==
LOC: EC 10:57 → 5NMEDONC 15:32
PROVIDERS: ADMIT Family Medicine; ATTEND Family Medicine
DX: N39.0 Urinary tract infection, site not specified (principal); I25.10 Atherosclerotic heart disease of native coronary artery without angina pectoris; E78.5 Hyperlipidemia, unspecified; G89.29 Other chronic pain; M51.35 Other intervertebral disc degeneration, thoracolumbar region; M51.36 Other intervertebral disc degeneration, lumbar region; M51.37 Other intervertebral disc degeneration, lumbosacral region; M48.07 Spinal stenosis, lumbosacral region; I71.4 Abdominal aortic aneurysm, without rupture; E66.9 Obesity, unspecified; K80.20 Calculus of gallbladder without cholecystitis without obstruction; R79.89 Other specified abnormal findings of blood chemistry; M43.15 Spondylolisthesis, thoracolumbar region; E78.00 Pure hypercholesterolemia, unspecified; M43.16 Spondylolisthesis, lumbar region; K21.9 Gastro-esophageal reflux disease without esophagitis; M43.17 Spondylolisthesis, lumbosacral region; K75.89 Other specified inflammatory liver diseases; M06.9 Rheumatoid arthritis, unspecified; I65.23 Occlusion and stenosis of bilateral carotid arteries; M16.0 Bilateral primary osteoarthritis of hip; M48.061 Spinal stenosis, lumbar region without neurogenic claudication; T36.8X5A Adverse effect of other systemic antibiotics, initial encounter; M19.012 Primary osteoarthritis, left shoulder; M19.011 Primary osteoarthritis, right shoulder; Z96.653 Presence of artificial knee joint, bilateral; E03.9 Hypothyroidism, unspecified; K59.00 Constipation, unspecified; H53.2 Diplopia; R47.81 Slurred speech; Z20.822 Contact with and (suspected) exposure to COVID-19; I11.9 Hypertensive heart disease without heart failure; I08.3 Combined rheumatic disorders of mitral, aortic and tricuspid valves; M25.78 Osteophyte, vertebrae; Z79.82 Long term (current) use of aspirin; Z79.890 Hormone replacement therapy; Z79.899 Other long term (current) drug therapy; Z95.5 Presence of coronary angioplasty implant and graft; Z90.89 Acquired absence of other organs; Z98.42 Cataract extraction status, left eye; Z98.41 Cataract extraction status, right eye; Z87.442 Personal history of urinary calculi; Z86.010 Personal history of colon polyps; Z87.891 Personal history of nicotine dependence; Z68.36 Body mass index [BMI] 36.0-36.9, adult; Z86.73 Personal history of transient ischemic attack (TIA), and cerebral infarction without residual deficits; Z87.440 Personal history of urinary (tract) infections
CPT/HCPCS: 36415; 70450; 70496; 70498; 72131; 72170; 74018; 76705; 76770; 80048; 80053; 80074; 81001; 82085; 82550; 83036; 83519; 83605; 83735; 83874; 84443; 84484; 85025; 85610; 85652; 85730; 86038; 86235; 86431; 87040; 87086; 87635; 93005; 93306; 93880; 96374; 99285

== ENCOUNTER → 2020-11-01 | Outpatient (CLI) | payer MEDICARE ==
[2020-11-02 10:34] LABS: Albumin 3.9 g/dL (3.80-4.90); Albumin/Globulin Ratio 1.15 (1.60-3.17); Bilirubin, Conjugated 0.2 mg/dL (0.20-0.40); Bilirubin,Unconjugated 0.3 mg/dL; Globulin 3.4 g/dL (1.6-3.3); Total Bilirubin 0.5 mg/dL (0.2-1.2); Total Protein 7.3 g/dL (6.2-8.2)
== END | disposition home or self-care (01) ==
LOC: LABWHC1 13:27
PROVIDERS: ATTEND Physician Assistant
DX: R74.01 Elevation of levels of liver transaminase levels (principal)
CPT/HCPCS: 36415; 80076

== ENCOUNTER → 2022-02-11 | Outpatient (CLI) | payer MEDICARE ==
--- NOTE | 2022-02-11 09:46 | MM ---
Reason for Exam: Clinical finding. Tissue Density: There are scattered fibroglandular densities. Findings: Analyzed By CAD. There is focal density, flame shaped in the subareolar right breast. This corresponds to the patient's palpable site. Asymmetric density superiorly becomes less defined on true lateral view but additional areas become for defined likely due to superimposition. No suspicious microcalcification or other discrete abnormality is seen. Overall Assessment: Incomplete: need additional imaging evaluation, BI-RAD 0 Management: Diagnostic Breast Ultrasound of the right breast. Subareolar region for suspected gynecomastia. Electronically signed and approved by: Tricia Hines M.D. Radiologist
--- NOTE | 2022-02-11 10:05 | USB ---
Reason for Exam: Additional evaluation requested from abnormal screening. Findings: The axilla of the right breast and the retroareolar of the right breast were scanned. Targeted subareolar ultrasound exam right breast. Some comparison images of the contralateral side are also obtained. Behind the right nipple, there is a heterogeneous 3.8 x 2.8 x 2.3 cm area of heterogeneous, nonmasslike tissue. Findings are compatible with benign gynecomastia. Trace similar changes are present on the contralateral side. No suspicious mass or cystic change. Overall Assessment: Benign, BI-RAD 2 Management: Clinical Management of the right breast in 1 year. For the asymmetric benign gynecomastia. If the area remains symptomatic, surgical excision can be considered. Correlate for causes of gynecomastia in this patient. Electronically signed and approved by: Tricia Hines M.D. Radiologist
== END | disposition home or self-care (01) ==
LOC: RADMAMWWP 08:42
PROVIDERS: ATTEND Family Medicine
DX: R92.8 Other abnormal and inconclusive findings on diagnostic imaging of breast (principal)
CPT/HCPCS: 77066; 76642; G0279; 77062

== ENCOUNTER → 2022-03-13 | Outpatient (CLI) | payer MEDICARE ==
[2022-03-13 12:57] VITALS: BP 149/73; PULSE 61; RESP 16; TEMP 97.6
--- NOTE | 2022-03-13 13:21 | P.GSHP ---
History of Present Illness H&P Date: 03/13/22 Chief Complaint: Fullness right breast Teto is a 81 year old white male with a complaint of right breast nodularity and pain which has resolved. He is seen in consultation for Dr. Oswald Ashraf. He had a bilateral mammogram performed and 8322 as well as a right breast ultrasound. The mammogram revealed a flame-shaped subareolar right breast density. No lesions of concern were noted in the left breast. A right breast ultrasound was recommended this revealed a 3.8 x 2.3 cm area of [id number] tissue compatible with gynecomastia. The patient states at this time the swelling and pain is gone. It was present for about one month. Caffiene: 2 cups/day nicotine: stopped 1999 chocolate: occasional Family history: none Surgical history: bilateral knee bilateral carotid surgery 2020 tonsil 6 cardiac stints Medical History: diabetes Social History: Nicotine: Negative Alcohol: Negative Drugs: Negative - Constitutional Constitutional: Denies chills, Denies fever - EENT Eyes: left diplopia, denies blurred vision, denies pain Ears: right: decreased hearing, deny: tinnitus Ears, nose, mouth and throat: Denies headache, Denies sore throat - Breasts Breasts: bilateral: as per HPI - Cardiovascular Cardiovascular: Reports as per HPI - Respiratory Respiratory: Denies cough, Denies 7 - Gastrointestinal Gastrointestinal: Denies abdominal pain, Denies diarrhea, Denies nausea, Denies vomiting - Genitourinary (Male) Genitourinary: Denies dysuria, Denies hematuria - Musculoskeletal Musculoskeletal: Denies myalgias - Integumentary Comment: none - Neurological Neurological: Denies numbness, Denies weakness - Psychiatric Psychiatric: Denies anxiety, Denies depression - Endocrine Endocrine: Denies fatigue, Denies weight change - Hematologic/Lymphatic Comment: aspirin daily - Allergic/Immunologic Allergic/Immunologic: Reports as per HPI Past Medical History Past Medical History: Coronary Artery Disease (CAD), Hyperlipidemia, Hypertension, Thyroid Disorder Additional Past Medical History / Comment(s): cardiac stents, AAA (states Dr is watching), hx kidney stones, hx of colon polyps History of Any Multi-Drug Resistant Organisms: None Reported Past Surgical History: Heart Catheterization With Stent, Tonsillectomy Additional Past Surgical History / Comment(s): 6 stents, charity cataracts Past Anesthesia/Blood Transfusion Reactions: No Reported Reaction Date of Last Stent Placement:: unknown Past Psychological History: No Psychological Hx Reported Smoking Status: Former smoker Past Alcohol Use History: None Reported Past Drug Use History: None Reported - Past Family History Mother Family Medical History: No Reported History Medications and Allergies Home Medications Medication Instructions Recorded Confirmed Type Aspirin EC [Ecotrin Low Dose] 81 mg PO DAILY 10/30/16 10/21/20 History Isosorbide Mononitrate ER [Imdur] 60 mg PO DAILY 10/30/16 10/21/20 History Metoprolol Succinate (ER) [Toprol 50 mg PO DAILY 10/30/16 10/21/20 History XL] Nitroglycerin Sl Tabs [Nitrostat] 0.4 mg SL Q5M PRN 10/30/16 10/21/20 History Omeprazole 20 mg PO DAILY 10/30/16 10/21/20 History Levothyroxine Sodium [Synthroid] 50 mcg PO DAILY 01/13/18 10/21/20 History Caclium 600mg W/Vitamin D3 1 tab PO DAILY 10/19/20 10/21/20 History Fish Oil 600mg 1 cap PO DAILY 10/19/20 10/21/20 History Niacin (Inositol Niacinate) 1,000 mg PO DAILY 10/19/20 10/21/20 History [Niacin 500 mg Capsule] Atorvastatin Calcium [Lipitor] 20 mg PO HS #30 tab 10/25/20 Rx Clopidogrel [Plavix] 75 mg PO DAILY 30 Days #30 tab 10/25/20 Rx metFORMIN HCL ER [Glucophage XR] 500 mg PO DAILY 03/13/22 03/13/22 History Allergies Allergy/AdvReac Type Severity Reaction Status Date / Time No Known Allergies Allergy Verified 03/13/22 12:57 Surgical - Exam Vital Signs Temp Pulse Resp BP Pulse Ox 97.6 F 61 16 149/73 97 03/13/22 12:54 03/13/22 12:54 03/13/22 12:54 03/13/22 12:54 03/13/22 12:54 BMI: 34.6 - General no distress - Eyes normal ocular movement - Neck trachea midline - Respiratory normal respiratory effort, clear to auscultation - Cardiovascular Rhythm: regular Heart Sounds: normal: S1, S2 - Abdomen Abdomen: soft, non tender, no guarding, no rigid, no rebound - Integumentary normal turgor - Neurologic no disoriented, no combative - Musculoskeletal normal gait, normal posture - Psychiatric oriented to time, oriented to person, oriented to place, speech is normal, memory intact Breast Exam: Inspection: Right breast larger than left breast Palpation: Right breast: Multi-positional exam mild fullness under the nipple areolar complex consistent with gynecomastia Right axilla: No adenopathy of concern Left breast: Multi-positional exam no dominant masses or nodules of concern Left axilla: No adenopathy of concern Patient has declined testicular exams/states that he does not have any nodules in his testicles Results Mammogram and ultrasound personally reviewed Assessment and Plan Assessment: Impression: Asymptomatic right breast enlargement consistent with unilateral gynecomastia Plan: Repeat right breast ultrasound in 6 months to assure the area is not increasing in size with examination at that time If patient notes any new lumps masses or nodules of concern he should see me sooner If patient notes any testicular nodules or masses C should call Cc: Dr. Oswald Ashraf
== END ==
LOC: WWCWWP 12:48
PROVIDERS: ATTEND Surgery
DX: N62 Hypertrophy of breast (principal); E11.9 Type 2 diabetes mellitus without complications; Z87.891 Personal history of nicotine dependence; I25.10 Atherosclerotic heart disease of native coronary artery without angina pectoris; E78.5 Hyperlipidemia, unspecified; I10 Essential (primary) hypertension; Z79.82 Long term (current) use of aspirin

== ENCOUNTER → 2022-12-08 | Outpatient (CLI) | payer MEDICARE ==
[2022-12-09 03:05] LABS: Basophils # (A) 0.08 X 10*3/uL (0.00-0.10); Basophils % (A) 1.2 %; Eosinophils # (A) 0.21 X 10*3/uL (0.04-0.35); Eosinophils % (A) 3.1 %; HCT 40.7 % (39.6-50.0); HGB 13.8 g/dL (13.0-17.0); Immature Grans, Automated 0.4 %; Lymphocytes # (A) 2.37 X 10*3/uL (0.90-5.00); MCH 31.1 pg (27.0-32.0); MCHC 33.9 g/dL (32.0-37.0); MCV 91.7 fL (80.0-97.0); Mean Platelet Volume 10.7 fL (9.5-12.2); Monocytes # (A) 0.57 X 10*3/uL (0.20-1.00); Monocytes % (A) 8.4 %; NRBC Per 100 WBC 0 /100 WBCS (0.0-0.0); Neutrophils # (A) 3.51 X 10*3/uL (1.80-7.70); Neutrophils % (A) 51.9 %; Platelet Count 188 X 10*3/uL (140-440); RBC 4.44 X 10*6/uL (4.40-5.60); RDW 13.3 % (11.5-14.5); WBC 6.77 X 10*3/uL (4.50-10.00)
[2022-12-09 03:25] LABS: Anion Gap 11.7 mmol/L (10.00-18.00); BUN/Creat Ratio 19.83 Ratio (12.00-20.00); Blood Urea Nitrogen 18.2 mg/dL (9.0-27.0); Calcium 9.7 mg/dL (8.7-10.3); Carbon Dioxide 24.8 mmol/L (20.0-27.5); Non-African American GFR(CKD) 78.5 (60.0-200.0); Potassium 4.5 mmol/L (3.5-5.5)
== END | disposition home or self-care (01) ==
LOC: LABWHC1 15:29
PROVIDERS: ATTEND Internal Medicine Cardiovascular Disease
DX: I48.11 Longstanding persistent atrial fibrillation (principal)
CPT/HCPCS: 36415; 80048; 84443; 85025

== ENCOUNTER → 2023-05-31 | Outpatient (CLI) | payer MEDICARE ==
[2023-05-31 15:48] LABS: ALT 30 U/L (10-49); AST 25 U/L (14-35); Chol/HDL Ratio 3.26 Ratio; LDL Cholesterol,Calculated 41.8 mg/dL (0.0-131.0)
== END | disposition home or self-care (01) ==
LOC: LABWHC1 11:30
PROVIDERS: ATTEND Internal Medicine Cardiovascular Disease
DX: E78.2 Mixed hyperlipidemia (principal)
CPT/HCPCS: 36415; 80061; 84450; 84460

== ENCOUNTER → 2024-06-21 | Outpatient (CLI) | payer MEDICARE ==
[2024-06-21 16:07] LABS: ALT 25 U/L (10-49); AST 24 U/L (14-35); Chol/HDL Ratio 2.74 Ratio
== END | disposition home or self-care (01) ==
LOC: LABWHC1 09:30
PROVIDERS: ATTEND Internal Medicine Cardiovascular Disease
DX: E78.2 Mixed hyperlipidemia (principal)
CPT/HCPCS: 36415; 80061; 84450; 84460

== ENCOUNTER 2024-09-26 18:42 | Inpatient (IN) | payer MEDICARE ==
[2024-09-26 18:54] LABS: Glucose,Whole Blood 146 mg/dL (70-110)
--- NOTE | 2024-09-26 19:12 | ED ---
Fall HPI - General Chief Complaint: Weakness Stated Complaint: Chest pain Time Seen by Provider: 09/26/24 18:55 Source: patient, RN notes reviewed, old records reviewed Mode of arrival: ambulatory Limitations: no limitations - History of Present Illness Initial Comments: This is a 84 male to the ER for evaluation, patient has multiple issues today complaint currently is chest pain chest pain with heaviness on his chest, patient also complains of syncopal event yesterday where he hit his head on blood thinners. Mild headache currently mainly complaining of the chest pain discomfort patient noticed blood pressure to be low today heart rate to be high as well as an episode of diaphoresis prior to arrival MD Complaint: fall -: days(s) (1) Fall From: standing When Fall Occurred: 24 hours [employer] Fall Witnessed: no Place Fall Occurred: home Loss of Consciousness: none Symptoms Prior to Fall: none Location: head Severity: moderate Quality: sharp Context: tripped/slipped Associated Symptoms: denies - Related Data Home Medications Medication Instructions Recorded Confirmed Aspirin EC [Ecotrin Low Dose] 81 mg PO DAILY@89910/30/16 09/26/24 Isosorbide Mononitrate ER [Imdur] 60 mg PO DAILY@89910/30/16 09/26/24 Nitroglycerin Sl Tabs [Nitrostat] 0.4 mg SL Q5M PRN 10/30/16 09/26/24 Omeprazole 20 mg PO HS@1800 10/30/16 09/26/24 Levothyroxine Sodium [Synthroid] 50 mcg PO DAILY@89901/13/18 09/26/24 Fish Oil 600mg 600 mg PO DAILY@89910/19/20 09/26/24 Niacin (Inositol Niacinate) 500 mg PO HS@1800 10/19/20 09/26/24 [Niacin 500 mg Capsule] Apixaban [Eliquis] 5 mg PO BID@0900,1800 09/26/24 09/26/24 Atorvastatin [Lipitor] 40 mg PO DAILY@89909/26/24 09/26/24 Calcium Carbonate/Vitamin D3 1 tab PO DAILY@89909/26/24 09/26/24 [Calcium 600 mg-D3 20 mcg (800 unit)] Dulaglutide [Trulicity] 0.75 mg SQ TH@89909/26/24 09/26/24 metFORMIN HCL 1,000 mg PO BID-W/MEALS 09/26/24 09/26/24 Previous Rx's Medication Instructions Recorded Acetaminophen Tab [Tylenol] 650 mg PO Q6HR PRN tab 10/03/24 Ciprofloxacin HCl [Cipro] 500 mg PO BID 10 Days #20 tab 10/03/24 Metoprolol Tartrate [Lopressor] 50 mg PO BID #60 tab 10/03/24 Allergies Allergy/AdvReac Type Severity Reaction Status Date / Time No Known Allergies Allergy Verified 09/26/24 19:24 Review of Systems ROS Statement: Those systems with pertinent positive or pertinent negative responses have been documented in the HPI. ROS Other: All systems not noted in ROS Statement are negative. Past Medical History Past Medical History: Coronary Artery Disease (CAD), Hyperlipidemia, Hypertension, Thyroid Disorder Additional Past Medical History / Comment(s): cardiac stents, AAA (states Dr is watching), hx kidney stones, hx of colon polyps History of Any Multi-Drug Resistant Organisms: None Reported Past Surgical History: Heart Catheterization With Stent, Tonsillectomy Additional Past Surgical History / Comment(s): 6 stents, charity cataracts Past Anesthesia/Blood Transfusion Reactions: No Reported Reaction Date of Last Stent Placement:: unknown Past Psychological History: No Psychological Hx Reported Smoking Status: Former smoker Past Alcohol Use History: None Reported Past Drug Use History: None Reported - Past Family History Mother Family Medical History: No Reported History General Exam Limitations: no limitations General appearance: alert, in no apparent distress, anxious Head exam: Present: atraumatic, normocephalic, normal inspection Eye exam: Present: normal appearance, PERRL, EOMI. Absent: scleral icterus, conjunctival injection, periorbital swelling ENT exam: Present: normal exam, mucous membranes moist Neck exam: Present: normal inspection. Absent: tenderness, meningismus, lymphadenopathy Respiratory exam: Present: normal lung sounds bilaterally. Absent: respiratory distress, wheezes, rales, rhonchi, stridor Cardiovascular Exam: Present: normal rhythm, tachycardia, normal heart sounds. Absent: systolic murmur, diastolic murmur, rubs, gallop, clicks GI/Abdominal exam: Present: soft, normal bowel sounds. Absent: distended, tenderness, guarding, rebound, rigid Extremities exam: Present: normal inspection, full ROM, normal capillary refill. Absent: tenderness, pedal edema, joint swelling, calf tenderness Back exam: Present: normal inspection Neurological exam: Present: alert, oriented X3, CN II-XII intact Psychiatric exam: Present: normal affect, normal mood Skin exam: Present: warm, dry, intact, normal color. Absent: rash Course Vital Signs 09/26/24 09/26/24 09/26/24 18:46 19:47 21:28 Temperature 98.3 F Pulse Rate 120 H 109 H 94 Respiratory 20 16 16 Rate Blood Pressure 103/62 109/76 104/54 O2 Sat by Pulse 95 98 96 Oximetry 09/26/24 21:33 Temperature 97.8 F Pulse Rate 87 Respiratory 16 Rate Blood Pressure 106/70 O2 Sat by Pulse 96 Oximetry - Reevaluation(s) Reevaluation #1: 09/26/24 20:07 Medical records reviewed Reevaluation #2: 09/26/24 20:07 Patient is still with chest pain no recurrent syncope Reevaluation #3: 09/26/24 20:07 Patient informed of results and questions answered Reevaluation #4: Was pt. sent in by a medical professional or institution (, PA, [employer], urgent care, hospital, or shelter...) When possible be specific @ -no Did you speak to anyone other than the patient for history (EMS, parent, family, police, friend...)? What history was obtained from this source @ -no Did you review nursing and triage notes (agree or disagree)? Why? @ -agree Are old charts reviewed (outside hosp., previous admission, EMS record, old EKG, old radiological studies, urgent care reports/EKG's, shelter records)? Report findings @ -yes Differential Diagnosis (chest pain, altered mental status, abdominal pain women, abdominal pain men, vaginal bleeding, weakness, fever, dyspnea, syncope, headache, dizziness, GI bleed, back pain, seizure, CVA, palpatations, mental health, musculoskeletal)? @ -prior EKG interpreted by me (3pts min.). @ -yes X-rays interpreted by me (1pt min.). @ -yes negative for acute disease CT interpreted by me (1pt min.). @ -Yes negative for acute disease U/S interpreted by me (1pt. min.). @ -no What testing was considered but not performed or refused? (CT, X-rays, U/S, labs)? Why? @ -none What meds were considered but not given or refused? Why? @ -none Did you discuss the management of the patient with other professionals (professionals i.e. , PA, [employer], lab, RT, psych nurse, social welfare administrator, career coordinator, teacher, college service officer, patient case coordinator)? Give summary @ -no Was smoking cessation discussed for >3mins.? @ -no Was critical care preformed (if so, how long)? @ -yes31 Were there social determinants of health that impacted care today? How? (Homelessness, low income, unemployed, alcoholism, drug addiction, transporta tion, low edu. Level, literacy, decrease access to med. care, intermediate, rehab)? @ -none Was there de-escalation of care discussed even if they declined (Discuss DNR or withdrawal of care, Hospice)? DNR status @ -no What co-morbidities impacted this encounter? (DM, HTN, Smoking, COPD, CAD, Cancer, CVA, ARF, Chemo, Hep., AIDS, mental health diagnosis, sleep apnea, morbid obesity)? @ -none Was patient admitted / discharged? Hospital course, mention meds given and route, prescriptions, significant lab abnormalities, going to OR and other pertinent info. @ - 84 male to ER with near syncopal event and fall yesterday hit his head positive head injury on anticoagulation CT scan negative. Patient having chest pain today anterior chest tightness and heaviness with history of 6 stents placed. Patient will be admitted for cardiac observation Admitted Undiagnosed new problem with uncertain prognosis? @ -no Drug Therapy requiring intensive monitoring for toxicity (Heparin, Nitro, Insulin, Cardizem)? @ -no Were any procedures done? @ -no Diagnosis/symptom? @ -Head injury after fall persistent chest pain here in the ER with CAD Acute, or Chronic, or Acute on Chronic? @ -Acute Uncomplicated (without systemic symptoms) or Complicated (systemic symptoms)? @ -Complicated Side effects of treatment? @ -no Exacerbation, Progression, or Severe Exacerbation? @ -exacerbation Poses a threat to life or bodily function? How? (Chest pain, USA, MA, pneumonia, PE, COPD, DKA, ARF, appy, cholecystitis, CVA, Diverticulitis, Homicidal, Suicidal, threat to staff... and all critical care pts) @ -yes with chest pain Reevaluation #5: Differential Chest Pain: Stable Angina, Unstable Angina, STEMI, NSTEMI Aortic Dissection, Pneumothorax, Musculoskeletal, Esophageal Spasm GERD, Cholecystitis, Pancreatitis, Zoster, this is not meant to be an all-inclusive list. Differential Syncope: Valvular disease, hypertrophic cardiomyopathy, pulmonary embolism, tamponade, tachycardia, bradycardia, MA, hypovolemia, hemorrhage, dissection, anemia, intracranial hemorrhage, seizure, hypoglycemia, carbon monoxide poisoning, this is not meant to be an all-inclusive list. - Consultations Consultation #1: Spoke with admitting physicians who agreed to admit this patient Medical Decision Making - Medical Decision Making 84 male to ER with near syncopal event and fall yesterday hit his head positive head injury on anticoagulation CT scan negative. Patient having chest pain today anterior chest tightness and heaviness with history of 6 stents placed. Patient will be admitted for cardiac observation - Lab Data Result diagrams: 10/03/24 05:26 10/03/24 05:26 Lab Results 09/26/24 09/26/24 09/26/24 Range/Units 18:49 20:01 20:01 WBC 9.7 (3.8-10.6) k/uL RBC 3.94 L (4.30-5.90) m/uL Hgb 11.7 L (13.0-17.5) gm/dL Hct 34.4 L (39.0-53.0) % MCV 87.3 (80.0-100.0) fL MCH 29.7 (25.0-35.0) pg MCHC 34.0 (31.0-37.0) g/dL RDW 13.9 (11.5-15.5) % Plt Count 218 (150-450) k/uL MPV 7.5 Neutrophils % 78 % Lymphocytes % 12 % Monocytes % 4 % Eosinophils % 3 % Basophils % 0 % Neutrophils # 7.5 (1.3-7.7) k/uL Lymphocytes # 1.2 (1.0-4.8) k/uL Monocytes # 0.4 (0-1.0) k/uL Eosinophils # 0.3 (0-0.7) k/uL Basophils # 0.0 (0-0.2) k/uL PT 12.3 (10.0-12.5) sec INR 1.1 (<1.2) APTT 28.4 (22.0-30.0) sec D-Dimer 0.90 H (<0.60) mg/L FEU Sodium (137-145) mmol/L Potassium (3.5-5.1) mmol/L Chloride (98-107) mmol/L Carbon Dioxide (22-30) mmol/L Anion Gap mmol/L BUN (9-20) mg/dL Creatinine (0.66-1.25) mg/dL Est GFR (CKD-EPI)AfAm (>60 ml/min/1.73 sqM) Est GFR (CKD-EPI)NonAf (>60 ml/min/1.73 sqM) Glucose (74-99) mg/dL POC Glucose (mg/dL) 146 H (70-110) mg/dL POC Glu Debeaker ID October Plasma Lactic Acid Erik (0.7-2.0) mmol/L Calcium (8.4-10.2) mg/dL Phosphorus (2.5-4.5) mg/dL Magnesium (1.6-2.3) mg/dL Total Bilirubin (0.2-1.3) mg/dL AST (17-59) U/L ALT (4-49) U/L Alkaline Phosphatase (38-126) U/L Troponin I (0.000-0.034) ng/mL NT-Pro-B Natriuret Pep pg/mL Total Protein (6.3-8.2) g/dL Albumin (3.5-5.0) g/dL 09/26/24 09/26/24 09/26/24 Range/Units 20:01 20:01 20:01 WBC (3.8-10.6) k/uL RBC (4.30-5.90) m/uL Hgb (13.0-17.5) gm/dL Hct (39.0-53.0) % MCV (80.0-100.0) fL MCH (25.0-35.0) pg MCHC (31.0-37.0) g/dL RDW (11.5-15.5) % Plt Count (150-450) k/uL MPV Neutrophils % % Lymphocytes % % Monocytes % % Eosinophils % % Basophils % % Neutrophils # (1.3-7.7) k/uL Lymphocytes # (1.0-4.8) k/uL Monocytes # (0-1.0) k/uL Eosinophils # (0-0.7) k/uL Basophils # (0-0.2) k/uL PT (10.0-12.5) sec INR (<1.2) APTT (22.0-30.0) sec D-Dimer (<0.60) mg/L FEU Sodium 130 L (137-145) mmol/L Potassium 3.9 (3.5-5.1) mmol/L Chloride 98 (98-107) mmol/L Carbon Dioxide 18 L (22-30) mmol/L Anion Gap 14 mmol/L BUN 28 H (9-20) mg/dL Creatinine 0.85 (0.66-1.25) mg/dL Est GFR (CKD-EPI)AfAm >90 (>60 ml/min/1.73 sqM) Est GFR (CKD-EPI)NonAf 81 (>60 ml/min/1.73 sqM) Glucose 145 H (74-99) mg/dL POC Glucose (mg/dL) (70-110) mg/dL POC Glu Debeaker ID Plasma Lactic Acid Erik 1.8 (0.7-2.0) mmol/L Calcium 8.6 (8.4-10.2) mg/dL Phosphorus 2.9 (2.5-4.5) mg/dL Magnesium 1.2 L (1.6-2.3) mg/dL Total Bilirubin 1.2 (0.2-1.3) mg/dL AST 133 H (17-59) U/L ALT 108 H (4-49) U/L Alkaline Phosphatase 135 H (38-126) U/L Troponin I 0.015 (0.000-0.034) ng/mL NT-Pro-B Natriuret Pep 2100 pg/mL Total Protein 6.9 (6.3-8.2) g/dL Albumin 3.4 L (3.5-5.0) g/dL - EKG Data -: EKG Interpreted by Me (EKG is A-fib with RVR 108 QRS 102 QTc 434) - Radiology Data Radiology results: report reviewed (CT brain C-spine chest x-ray is negative for acute disease), image reviewed Critical Care Time Critical Care Time: Yes Total Critical Care Time: 31 Disposition Clinical Impression: Fall, Head injury, Hypertension, Weakness, Dehydration, Near syncope, Chest pain, Hypomagnesemia Disposition: ADMITTED IP TO THIS [facility] Condition: Fair Is patient prescribed a controlled substance at d/c from ED?: No Time of Disposition: 21:00
--- NOTE | 2024-09-26 19:22 | CT ---
EXAMINATION TYPE: CT brain cspine wo con DATE OF EXAM: 09/26/2024 7:10 PM COMPARISON: Multiple prior CT studies, most recent dated 10/22/2020. CLINICAL INDICATION: Male, 84 years old with history of fall; fall, on thinners TECHNIQUE: Brain: Multiple axial CT images of the brain were obtained without IV contrast. Cspine: Axial CT images from the skull base to the inferior aspect of T2 we obtained without intraven ous contrast. Coronal and sagittal reformatted images were also reviewed. . CT DLP: 1531.5 mGycm, Automated exposure control for dose reduction was used. FINDINGS: Brain: Extra-axial spaces: No abnormal extra-axial fluid collections. Ventricular system: Dilatation in proportion to cerebral atrophy. Cerebral parenchyma: No acute intraparenchymal hemorrhage or mass effect. Scattered hypoattenuating areas are seen within the white matter. Cerebellum: Unremarkable. Mass effect: No evidence of midline shift. Intracranial vasculature: unremarkable Soft tissues: Normal. Calvarium/osseous structures: No depressed skull fracture. Paranasal sinuses and mastoid air cells: Clear. Visualized orbits: The lenses are surgically removed from the globes. Cervical spine: Fracture: None. Osseous structures: Multilevel degenerative disc disease changes with endplate spurring and disc oste ophyte complex's. Vertebral alignment: Straightening of the normal cervical spine lordotic curvature. Spinal canal/Neural Foramina: Multilevel facet arthropathy and uncovertebral hypertrophy in combinati on with posterior disc osteophytes cause varying degrees of multilevel spinal canal and neural forami nal narrowing. Evaluation of the spinal canal is limited due to streak artifact. Neck soft tissues: Prevertebral soft tissues are within normal limits. Other: Advanced emphysema and subcentimeter right lung apex probably nodule measuring up to 4-5 mm. B ilateral vascular stent grafts in the neck. IMPRESSION: 1. No acute intracranial process. 2. No acute fracture or traumatic subluxation of the cervical spine. [facility], , 09/26/2024 7:20 PM
[2024-09-26] MEDS: SODIUM CHLORIDE 0.9% 1,000 ML IV ONE (20:03)
[2024-09-26 20:08] LABS: Basophils % (A) 0 %; Eosinophils # (A) 0.3 k/uL (0-0.7); Eosinophils % (A) 3 %; HCT 34.4 % (39.0-53.0); HGB 11.7 gm/dL (13.0-17.5); Lymphocytes # (A) 1.2 k/uL (1.0-4.8); Lymphocytes % (A) 12 %; MCH 29.7 pg (25.0-35.0); MCV 87.3 fL (80.0-100.0); Mean Platelet Volume 7.5; Monocytes # (A) 0.4 k/uL (0-1.0); Monocytes % (A) 4 %; Neutrophils # (A) 7.5 k/uL (1.3-7.7); Neutrophils % (A) 78 %; Platelet Count 218 k/uL (150-450); RBC 3.94 m/uL (4.30-5.90); RDW 13.9 % (11.5-15.5); WBC 9.7 k/uL (3.8-10.6)
[2024-09-26 20:23] LABS: INR 1.1 (<1.2); Partial Thromboplastin Time 28.4 sec (22.0-30.0); Prothrombin Time 12.3 sec (10.0-12.5)
--- NOTE | 2024-09-26 20:23 | XR ---
EXAMINATION TYPE: XR chest 1V portable DATE OF EXAM: 09/26/2024 8:09 PM COMPARISON: None. CLINICAL INDICATION: Male, 84 years old with history of cp; H TECHNIQUE: XR chest 1V portable Frontal view of the chest. FINDINGS: Cardiomegaly and mild prominence of the interstitial markings. No sizable pleural effusion. No pneumothorax. No acute osseous abnormality. Old right-sided rib fracture deformities. IMPRESSION: Cardiomegaly and prominence of the interstitial markings which could reflect mild pulmonary vascular congestion or infectious etiology. [facility], , 09/26/2024 8:21 PM
[2024-09-26 20:29] LABS: ALT 108 U/L (4-49); AST 133 U/L (17-59); African American GFR (CKD) >90 (>60 ml/min/1.73 sqM); Albumin 3.4 g/dL (3.5-5.0); Alkaline Phosphatase 135 U/L (38-126); Anion Gap 14 mmol/L; Blood Urea Nitrogen 28 mg/dL (9-20); Calcium 8.6 mg/dL (8.4-10.2); Carbon Dioxide 18 mmol/L (22-30); Chloride 98 mmol/L (98-107); Glucose 145 mg/dL (74-99); Magnesium 1.2 mg/dL (1.6-2.3); Non-African American GFR(CKD) 81 (>60 ml/min/1.73 sqM); Phosphorus 2.9 mg/dL (2.5-4.5); Potassium 3.9 mmol/L (3.5-5.1); Sodium 130 mmol/L (137-145); Total Bilirubin 1.2 mg/dL (0.2-1.3); Total Protein 6.9 g/dL (6.3-8.2)
[2024-09-26] MEDS ORDERED: ONDANSETRON 4 MG/2 ML VIAL IVP PRN (20:31)
[2024-09-26] MEDS ORDERED: NALOXONE 0.4 MG/ML 1 ML VIAL IV PRN (20:31)
[2024-09-26] MEDS ORDERED: MORPHINE SULFATE 4 MG/ML SYRINGE IV PRN (20:31)
[2024-09-26 20:38] LABS: NT-Pro-B-Type Natriuretic Pept 2100 pg/mL
[2024-09-26] MEDS: MAGNESIUM SULFATE-D5W PMX 1 GM in DEXTROSE/WATER 1 100ML.BAG IVPB ONE (21:33)
[2024-09-26] MEDS: SODIUM CHLORIDE 0.9% 1,000 ML IV SCH (21:34)
[2024-09-26] MEDS: MAGNESIUM OXIDE 400 MG TAB PO STA ×2 (21:34)
[2024-09-27] MEDS: HEPARIN SOD,PORK IN 0.45% NACL 25,000 UNIT in 0.45% NACL 1 250ML.BAG IV SCH (00:25)
[2024-09-27] MEDS: HEPARIN SODIUM 1,000 UN/ML (10ML VL) IV ONE (00:25)
[2024-09-27 00:42] LABS: Basophils % (A) 0 %; Eosinophils # (A) 0.2 k/uL (0-0.7); Eosinophils % (A) 3 %; HCT 33.2 % (39.0-53.0); Lymphocytes # (A) 0.9 k/uL (1.0-4.8); Lymphocytes % (A) 12 %; MCH 29.3 pg (25.0-35.0); MCHC 33.1 g/dL (31.0-37.0); MCV 88.5 fL (80.0-100.0); Mean Platelet Volume 7.6; Monocytes # (A) 0.4 k/uL (0-1.0); Monocytes % (A) 5 %; Neutrophils # (A) 5.6 k/uL (1.3-7.7); Neutrophils % (A) 77 %; Platelet Count 178 k/uL (150-450); RBC 3.75 m/uL (4.30-5.90); RDW 13.9 % (11.5-15.5); WBC 7.2 k/uL (3.8-10.6)
[2024-09-27 00:53] LABS: INR 1.1 (<1.2); Partial Thromboplastin Time 27.4 sec (22.0-30.0); Prothrombin Time 12.1 sec (10.0-12.5)
[2024-09-27] MEDS: ACETAMINOPHEN TAB 325 MG TAB PO PRN (02:12)
[2024-09-27] MEDS ORDERED: NITROGLYCERIN SL TABS 0.4 MG TAB SUBLINGUAL PRN (08:02)
[2024-09-27] MEDS ORDERED: ALPRAZolam 0.5 MG TAB PO PRN (08:02)
[2024-09-27] MEDS ORDERED: ALPRAZolam 0.25 MG TAB PO PRN (08:02)
[2024-09-27 08:12] LABS: ALT 111 U/L (4-49); AST 111 U/L (17-59); African American GFR (CKD) >90 (>60 ml/min/1.73 sqM); Albumin/Globulin Ratio 0.9; Alkaline Phosphatase 128 U/L (38-126); Anion Gap 8 mmol/L; Calcium 8.2 mg/dL (8.4-10.2); Carbon Dioxide 21 mmol/L (22-30); Chloride 102 mmol/L (98-107); Globulin 3.3 g/dL; Glucose 143 mg/dL (74-99); Magnesium 1.4 mg/dL (1.6-2.3); Non-African American GFR(CKD) >90 (>60 ml/min/1.73 sqM); Phosphorus 2.9 mg/dL (2.5-4.5); Potassium 3.6 mmol/L (3.5-5.1); Sodium 131 mmol/L (137-145); Total Bilirubin 0.9 mg/dL (0.2-1.3); Total Protein 6.3 g/dL (6.3-8.2)
[2024-09-27] MEDS: ATORVASTATIN 40 MG TAB PO SCH (08:24)
[2024-09-27] MEDS: ATORVASTATIN 80 MG TAB PO STA (08:24)
[2024-09-27] MEDS: METOPROLOL TARTRATE 50 MG TAB PO SCH (08:24)
[2024-09-27] MEDS: ASPIRIN 325 MG TAB PO STA (08:24)
[2024-09-27] MEDS: ASPIRIN 81 MG PO SCH (08:25)
[2024-09-27 08:31] LABS: Basophils # (A) 0.04 X 10*3/uL (0.00-0.10); Basophils % (A) 0.6 %; Eosinophils # (A) 0.16 X 10*3/uL (0.04-0.35); Eosinophils % (A) 2.4 %; HCT 31.5 % (39.6-50.0); HGB 10.8 g/dL (13.0-17.0); Lymphocytes # (A) 0.83 X 10*3/uL (0.90-5.00); Lymphocytes % (A) 12.4 %; MCH 29.9 pg (27.0-32.0); MCHC 34.3 g/dL (32.0-37.0); MCV 87.3 FL (80.0-97.0); Mean Platelet Volume 10.5 FL (9.5-12.2); Monocytes # (A) 0.58 X 10*3/uL (0.20-1.00); Monocytes % (A) 8.7 %; NRBC Per 100 WBC 0 X 10*3/uL (0.00-0.01); Neutrophils # (A) 5.04 X 10*3/uL (1.80-7.70); Neutrophils % (A) 75.3 %; Platelet Count 192 X 10*3/uL (140-440); RBC 3.61 X 10*6/uL (4.40-5.60); RDW 13.5 % (11.5-14.5); WBC 6.69 X 10*3/uL (4.50-10.00)
[2024-09-27 08:37] LABS: Blood Urea Nitrogen 19 mg/dL (9-20)
[2024-09-27] MEDS: HEPARIN SODIUM 1,000 UN/ML (10ML VL) IV PRN (09:16)
--- NOTE | 2024-09-27 10:05 | P.CRDCN ---
History of Present Illness Consult date: 09/27/24 Consult reason: chest pain History of present illness: This is an 84-year-old male patient of Dr. Eric Reed with past medical history of coronary artery disease with 6 stents per patient in the past done at [facility] around 2003, carotid artery disease status post carotid stents at [facility] 2 years ago, hypertension, dyslipidemia, diabetes, persistent atrial fibrillation on Eliquis. We have been asked to evaluate the patient for chest pain. Patient states that on Wednesday he was sweating to the point that his T-shirt was all wet and had a staggering gait. He states he ended up falling into the wall, feeling dizzy and felt disoriented. He sat down to read the Bible and was trembling for about 1 hour. Then yesterday he had an eye doctor's appointment with Dr. Zamudio. He went home and developed pressure in his chest l jeferson someone was sitting on his chest. He checked his heart rate was 108 and his blood pressure was low. He called his daughter who picked him up and brought him into the emergency center. His last Eliquis intake was on 09/26 in the morning. Patient has been started on a heparin drip. Discussed recommendations for cardiac catheterization and he is agreeable to move forward with this and will be scheduled tomorrow. Patient also gives history that his on 08/17. Blood pressure 129/71, heart rate 81, pulse ox 96% on room air. Patient is currently chest pain-free. -EKG: Atrial fibrillation at 108 bpm -Chest x-ray: Cardiomegaly with prominence of the interstitial markings which were could reflect mild pulmonary vascular congestion. -CT of the head and neck: No acute intracranial process. No acute fracture or traumatic subluxation of the cervical spine. -Laboratory studies: WBC 6.6, hemoglobin 10.8. Sodium 131, potassium 3.6, creatinine 0.59. Troponin 0.015, 0.109 and 0.105. AST 111, ALT 111, alkaline phosphatase 128. -Home cardiac medications: Eliquis 5 mg twice daily, aspirin 81 mg daily, atorvastatin 40 mg daily, isosorbide 60 mg daily, metoprolol succinate 50 mg daily, Nitrostat as needed, also on levothyroxine. -Echocardiogram performed on 05/25/2024 in the office revealed EF 55%, moderate left ventricular hypertrophy, moderate aortic regurgitation, mild mitral regurgitation, moderate tricuspid regurgitation, PASP 53 mmHg. -Lexiscan Cardiolite stress test performed in the office on 05/19/2021 revealed normal study. Review Of Systems: At the time of my exam: CONSTITUTIONAL: Denies fever or chills. HEENT: Denies blurred vision, vision changes, or eye pain. Denies hemoptysis CARDIOVASCULAR: Denies chest pain. Denies orthopnea. Denies PND. Denies pa lpitations RESPIRATORY: Denies shortness of breath. GASTROINTESTINAL: Denies abdominal pain. Denies nausea or vomiting. HEMATOLOGIC: Denies bleeding disorders. GENITOURINARY: Denies any blood in urine. SKIN: Denies puritis. Denies rash. Physical examination: Gen: This is a 84-year-old male in no acute distress. History of coronary artery disease with previous PCI at [facility] VS: reviewed HEENT: Head is atraumatic, normocephalic. Pupils equal, round. Sclerae is anicteric. NECK: Supple. No JVD. LUNGS: Clear to auscultation. No wheezes or rhonchi. No intercostal retractions. HEART: Regular rate and rhythm. No murmur. ABDOMEN: Soft No tenderness. EXTREMITIES: No pedal edema. No calf tenderness. NEUROLOGICAL: Patient is awake, alert and oriented x3. Assessment: NSTEMI Coronary artery disease with previous PCI at [facility] prior to 2003 Carotid artery disease status post carotid stents at [facility] 2 years ago Hypertension Dyslipidemia Diabetes Persistent atrial fibrillation on Eliquis Plan: Resume patient's home cardiac medications Continue to hold Eliquis Continue heparin drip Patient will be scheduled for cardiac catheterization tomorrow with Dr. Reed Obtain 2-D echocardiogram and Doppler study to assess cardiac structure and function Further recommendations to follow based upon clinical course Thank you kindly for this consultation. Nurse practitioner note has been reviewed, I agree with documented findings and plan of care. Patient was seen and examined. Past Medical History Past Medical History: Coronary Artery Disease (CAD), Hyperlipidemia, Hypertension, Thyroid Disorder Additional Past Medical History / Comment(s): cardiac stents, AAA (states Dr is watching), hx kidney stones, hx of colon polyps History of Any Multi-Drug Resistant Organisms: None Reported Past Surgical History: Heart Catheterization With Stent, Tonsillectomy Additional Past Surgical History / Comment(s): 6 stents, charity cataracts Past Anesthesia/Blood Transfusion Reactions: No Reported Reaction Date of Last Stent Placement:: unknown Past Psychological History: No Psychological Hx Reported Smoking Status: Former smoker Past Alcohol Use History: None Reported Past Drug Use History: None Reported - Past Family History Mother Family Medical History: No Reported History Medications and Allergies Home Medications Medication Instructions Recorded Confirmed Type Aspirin EC [Ecotrin Low Dose] 81 mg PO DAILY@0900 10/30/16 09/26/24 History Isosorbide Mononitrate ER [Imdur] 60 mg PO DAILY@0900 10/30/16 09/26/24 History Metoprolol Succinate (ER) [Toprol 50 mg PO DAILY@0900 10/30/16 09/26/24 History XL] Nitroglycerin Sl Tabs [Nitrostat] 0.4 mg SL Q5M PRN 10/30/16 09/26/24 History Omeprazole 20 mg PO HS@1800 10/30/16 09/26/24 History Levothyroxine Sodium [Synthroid] 50 mcg PO DAILY@0900 01/13/18 09/26/24 History Fish Oil 600mg 600 mg PO DAILY@0900 10/19/20 09/26/24 History Niacin (Inositol Niacinate) 500 mg PO HS@1800 10/19/20 09/26/24 History [Niacin 500 mg Capsule] Apixaban [Eliquis] 5 mg PO BID@0900,1800 09/26/24 09/26/24 History Atorvastatin [Lipitor] 40 mg PO DAILY@0900 09/26/24 09/26/24 History Calcium Carbonate/Vitamin D3 1 tab PO DAILY@0900 09/26/24 09/26/24 History [Calcium 600 mg-D3 20 mcg (800 unit)] Dulaglutide [Trulicity] 0.75 mg SQ TH@89909/26/24 09/26/24 History metFORMIN HCL 1,000 mg PO BID-W/MEALS 09/26/24 09/26/24 History Allergies Allergy/AdvReac Type Severity Reaction Status Date / Time No Known Allergies Allergy Verified 09/26/24 19:24 Physical Exam Vitals: Vital Signs Temp Pulse Pulse Resp BP BP Pulse Ox 09/27/24 07:05 97.3 F L 81 15 129/71 96 09/27/24 02:29 98.0 F 87 15 169/76 96 09/26/24 22:22 97.5 F L 97 15 145/81 99 09/26/24 21:33 97.8 F 87 16 106/70 96 09/26/24 21:28 94 16 104/54 96 09/26/24 19:47 109 H 16 109/76 98 09/26/24 18:46 98.3 F 120 H 20 103/62 95 Intake and Output 09/26/24 09/27/24 09/27/24 22:59 06:59 14:59 Other: Voiding Method Toilet # Voids 1 1 Weight 104.326 kg Results 09/27/24 06:05 09/27/24 06:05 Cardiac Enzymes 09/26/24 09/26/24 09/27/24 Range/Units 20:01 20:01 00:01 AST 133 H (17-59) U/L Troponin I 0.015 0.109 H* (0.000-0.034) ng/mL 09/27/24 Range/Units 06:05 AST (17-59) U/L Troponin I 0.105 H* (0.000-0.034) ng/mL Coagulation 09/26/24 09/27/24 09/27/24 Range/Units 20:01 00:30 06:05 PT 12.3 12.1 (10.0-12.5) sec APTT 28.4 27.4 37.3 H (22.0-30.0) sec CBC 09/26/24 09/27/24 Range/Units 20:01 00:30 WBC 9.7 7.2 (3.8-10.6) k/uL RBC 3.94 L 3.75 L (4.30-5.90) m/uL Hgb 11.7 L 11.0 L (13.0-17.5) gm/dL Hct 34.4 L 33.2 L (39.0-53.0) % Plt Count 218 178 (150-450) k/uL Comprehensive Metabolic Panel 09/26/24 Range/Units 20:01 Sodium 130 L (137-145) mmol/L Potassium 3.9 (3.5-5.1) mmol/L Chloride 98 (98-107) mmol/L Carbon Dioxide 18 L (22-30) mmol/L BUN 28 H (9-20) mg/dL Creatinine 0.85 (0.66-1.25) mg/dL Glucose 145 H (74-99) mg/dL Calcium 8.6 (8.4-10.2) mg/dL AST 133 H (17-59) U/L ALT 108 H (4-49) U/L Alkaline Phosphatase 135 H (38-126) U/L Total Protein 6.9 (6.3-8.2) g/dL Albumin 3.4 L (3.5-5.0) g/dL Current Medications Generic Name Dose Route Start Last Admin Trade Name Freq PRN Reason Stop Dose Admin Acetaminophen 650 mg 09/27/24 02:06 09/27/24 02:12 Acetaminophen Tab 325 Mg Tab PO 650 mg Q6HR PRN Administration Fever and/ or Pain Atorvastatin Calcium 40 mg 09/27/24 09:00 Atorvastatin 40 Mg Tab PO DAILY@0900 [facility] Heparin Sodium (Porcine) 0 unit 09/27/24 00:09 Heparin Sodium 1,000 Un/Ml (10ml Vl) IV PER PROTOCOL PRN Low PTT Protocol Sodium Chloride 1,000 mls @ 75 mls/hr 09/26/24 20:45 09/26/24 21:34 Saline 0.9% IV 75 mls/hr .[id number] KORINA Administration Heparin Sodium/Sodium Chloride 250 mls @ 10 mls/hr 09/27/24 00:15 09/27/24 00:25 25,000 unit/ Sodium Chloride IV 9.585 units/kg/hr .Q24H KORINA 10 mls/hr Administration Protocol 9.585 UNITS/KG/HR Isosorbide Mononitrate 60 mg 09/27/24 09:00 Isosorbide Mononitrate Er 60 Mg Tab.Er.24h PO DAILY@0900 [facility] Metoprolol Tartrate 50 mg 09/27/24 09:00 Metoprolol Tartrate 50 Mg Tab PO BID [facility] Morphine Sulfate 4 mg 09/26/24 20:31 Morphine Sulfate 4 Mg/Ml Syringe IV Q4HR PRN Severe Pain (Scale 7 to 10) Naloxone HCl 0.2 mg 09/26/24 20:31 Naloxone 0.4 Mg/Ml 1 Ml Vial IV Q2M PRN Opioid Reversal Non-Formulary Medication 81 mg 09/27/24 09:00 Aspirin Ec PO DAILY@0900 [facility] Ondansetron HCl 4 mg 09/26/24 20:31 Ondansetron 4 Mg/2 Ml Vial IVP Q8HR PRN Nausea And Vomiting Intake and Output 09/26/24 09/27/24 09/27/24 22:59 06:59 14:59 Other: Voiding Method Toilet # Voids 1 1 Weight 104.326 kg 09/27/24 00:30 09/26/24 20:01
[2024-09-27] MEDS: ISOSORBIDE MONONITRATE ER 60 MG TAB.ER.24H PO SCH (11:35)
--- NOTE | 2024-09-27 12:16 | CA ---
Transthoracic Echo Report Name: Teto Barrios Age: 84 Gender: M : 1940 Exam Date: 09/27/2024 10:07 Exam Location: [facility] Ht (in): 72 Wt (lb): 230 Ordering Physician: Josy Dominguez Attending/Referring Phys: [id number], Angelica Manager Art Raymond Fisher, RDCLEMENTINE Procedure CPT: Indications: LVF Cardiac Hx: CAD, Stents, HTN, Technical Quality: Technically difficult study Contrast 1: Definity Total Dose (mL): 2 Contrast 2: Total Dose (mL): MEASUREMENTS (Male / Female) Normal Values 2D ECHO LV Diastolic Diameter PLAX 4.9 cm 4.2 - 5.9 / 3.9 - 5.3 cm LV Systolic Diameter PLAX 3.6 cm IVS Diastolic Thickness 1.2 cm 0.6 - 1.0 / 0.6 - 0.9 cm LVPW Diastolic Thickness 1.2 cm 0.6 - 1.0 / 0.6 - 0.9 cm LV Relative Wall Thickness 0.5 RV Internal Dim ED PLAX 3.6 cm LVOT Diameter 1.9 cm LA Systolic Diameter LX 3.7 cm 3.0 - 4.0 / 2.7 - 3.8 cm LA Volume 75.8 cm??? 18 - 58 / 22 - 52 cm??? LA Volume Index 32.5 cm???/m??? 16 - 28 cm???/m??? DOPPLER AI Peak Velocity 402.9 cm/s AI Peak Gradient 64.9 mmHg AI Pressure Half Time 474.2 ms LVOT Peak Velocity 77.3 cm/s LVOT Peak Gradient 2.4 mmHg LVOT Velocity Time Integral 13.9 cm LVOT Stroke Volume 37.6 cm??? LVOT Stroke Volume Index 16.6 ml/m??? LVOT Cardiac Index 1146.6 cm???/min???m??? MV Area PHT 3.2 cm??? Mitral E Point Velocity 73.4 cm/s Mitral A Point Velocity 80.1 cm/s Mitral E to A Ratio 0.9 MV Deceleration Time 240.0 ms TR Peak Velocity 247.5 cm/s TR Peak Gradient 24.5 mmHg Right Atrial Pressure 5.0 mmHg Pulmonary Artery Systolic Pressu 29.5 mmHg Right Ventricular Systolic Press 29.5 mmHg FINDINGS Left Ventricle Left ventricular ejection fraction is estimated at 55-60 %. Mildly increased septal wall thickness. Normal left ventricular systolic function with no obvious regional wall motion abnormalities. Right Ventricle Normal right ventricular size and function. Right ventricular systolic pressure within normal limits. Right Atrium Mild right atrial dilatation. Left Atrium Mildly increased left atrial volume. Mildly increased left atrial area. Mitral Valve Mild mitral annular calcification. No mitral stenosis. Trace mitral regurgitation. Aortic Valve Diffuse thickening (sclerosis) of the aortic valve cusps without reduced excursion. [id number] aortic regurgitation. Tricuspid Valve Structurally normal tricuspid valve. No tricuspid stenosis. [id number] tricuspid regurgitation. Pulmonic Valve Pulmonic valve not well visualized. No pulmonic stenosis. No pulmonic regurgitation. Pericardium No pericardial effusion. No pleural effusion. Aorta Normal size aortic root and proximal ascending aorta. CONCLUSIONS Normal LV size and systolic function. Mitral annular calcification and aortic valve sclerosis without significant restriction. There is mild to moderate aortic regurgitation and tricuspid regurgitation, minimal mitral regurgitation. No pericardial effusion. No pulmonary hypertension Previewed by: Dr. Huber Ladd MD (Electronically Signed) Final Date: 27 September 2024 12:15
--- NOTE | 2024-09-27 14:08 | HP ---
HISTORY AND PHYSICAL CHIEF COMPLAINT: Chest pain. HISTORY OF PRESENT ILLNESS: This is an 84-year-old gentleman with a past medical history of CAD and stenting in [facility], was complaining of chest pain. The patient has pressure- type of chest pain with diaphoresis and the patient apparently passed out as well. Evaluation showed troponin elevated up to 0.105 and multiple other lab abnormalities also. Cardiology is planning possible cardiac catheterization. There is no history of any fever, rigors, or chills at this time. The patient also had significant shakes and chills after admission with fever also. PAST MEDICAL HISTORY: Reviewed include history of CAD stent, hypertension, hyperlipidemia. Rest of the chart and rest of the history are also reviewed. HOME MEDICATIONS: Reviewed include metformin, dose and rest of medications reviewed. ALLERGIES: None. FAMILY HISTORY: No history of heart disease, or strokes in the family. SOCIAL HISTORY: Previous history of smoking. REVIEW OF SYSTEMS: Fourteen-point review of systems is negative except as mentioned earlier. PHYSICAL EXAMINATION: VITAL SIGNS: Pulse 93, blood pressure 97/51, respirations 20. HEENT: Conjunctivae normal. NECK: No JVD. CARDIOVASCULAR: S1, S2 muffled. RESPIRATIONS: Breath sounds diminished at the bases. A few scattered rhonchi and crackles. ABDOMEN: Soft, nontender. LEGS: No edema. NERVOUS SYSTEM: No focal deficits. LABORATORY DATA: Lab investigations are WBC 6.6, hemoglobin 10.8. Other labs are noted. ASSESSMENT: 1. Chest pain, possible acute non ST-segment elevation myocardial infarction with troponin 0.105. 2. Shaking chills with possible sepsis present on admission. 3. Elevated LFTs of undetermined etiology. 4. Hyponatremia. 5. Anemia. 6. Rule out flu-like syndrome. 7. Hypertension. 8. Hyperlipidemia. 9. History of abdominal aortic aneurysm. RECOMMENDATIONS AND DISCUSSION: This is an 84-year-old gentleman, who presented with multiple complex medical issues, we will monitor the patient closely. Continue the current management and continue symptomatic treatment. Obtain blood cultures. I would also recommend empiric antibiotics. Flu testing. COVID and viral panel testing. Resume the home medications. Closely follow with Cardiology. Prognosis may be guarded because of multiple complex medical issues. Further recommendations to follow. A 2D echo showed normal LV function. EKG showed PVCs. Chest x-ray showed mild increased vascular markings. CT head and cervical spine showed no acute abnormality. Once again, the prognosis guarded because of multiple complex medical issues. Further recommendations to follow. See orders for further details. Discussed with the daughter at the bedside. MMODL / IJN: [id number] /
[2024-09-27 15:03] LABS: Influenza A Not Detected (Not Detectd); Influenza B Not Detected (Not Detectd); RSV Not Detected (Not Detectd)
[2024-09-27 16:27] LABS: Appearance,Urine Cloudy (Clear); Bilirubin,Urine 1+ (Negative); Blood,Urine Negative (Negative); Color,Urine Dark Yellow; Glucose,Urine (UA) Negative (Negative); Hyaline Casts,Urine 40 /lpf (0-2); Ketones,Urine Negative (Negative); Leukocyte Esterase,Urine Negative (Negative); Mucus,Urine Few /hpf; Nitrite,Urine Negative (Negative); PH, Urine 5.5 (5.0-8.0); Protein,Urine 1+ (Negative); RBC,Urine 3 /hpf (0-5); Specific Gravity,Urine 1.025 (1.001-1.035); WBC,Urine 5 /hpf (0-5)
[2024-09-27] MEDS: PANTOPRAZOLE 40 MG TABLET PO SCH (17:36)
[2024-09-27] MEDS: NIACIN TR 500 MG CAPLET PO SCH (17:36)
--- NOTE | 2024-09-27 23:00 | P.CONS ---
History of Present Illness - Reason for Consult Consult date: 09/27/24 Sepsis Requesting physician: Patricia Rodgers - Chief Complaint Weakness and fall x 1 day - History of Present Illness Patient is 84-year-old male past medical history difficult for hypertension hyperlipidemia hypothyroidism coronary artery disease presenting to the hospital after the patient felt dizzy and fall onto the wall patient also have some rigors and chills but did not recall any fever no headache or URI symptoms patient did have some chest congestion but no pulm pain cough is mostly dry in nature and moderate intensity patient denies having any nausea no vomiting no abdominal pain or any diarrhea patient on presentation to hospital patient was afebrile he however did spike a fever of 101.9 F this morning patient was tachycardic but not hypotensive or hypoxic patient did have white count of 7.2 with normal left shift creatinine is normal liver isms mildly elevated as well as troponin urine is pending patient did have head and cervical spine CT did not show any bleed or fracture chest x-ray with cardiomegaly and prominence of interstitial markings could reflect mild pulmonary vascular congestion or infectious etiology infectious he was consulted because of the fever empirically start Rocephin Review of Systems Positive point and negatives has been mentioned in the HPI, complete review of systems was performed and all other systems are negative Past Medical History Past Medical History: Coronary Artery Disease (CAD), Hyperlipidemia, Hypertension, Thyroid Disorder Additional Past Medical History / Comment(s): cardiac stents, AAA (states Dr is watching), hx kidney stones, hx of colon polyps History of Any Multi-Drug Resistant Organisms: None Reported Past Surgical History: Heart Catheterization With Stent, Tonsillectomy Additional Past Surgical History / Comment(s): 6 stents, charity cataracts Past Anesthesia/Blood Transfusion Reactions: No Reported Reaction Date of Last Stent Placement:: unknown Past Psychological History: No Psychological Hx Reported Smoking Status: Former smoker Past Alcohol Use History: None Reported Past Drug Use History: None Reported - Past Family History Mother Family Medical History: No Reported History Medications and Allergies Home Medications Medication Instructions Recorded Confirmed Type Aspirin EC [Ecotrin Low Dose] 81 mg PO DAILY@89910/30/16 09/26/24 History Isosorbide Mononitrate ER [Imdur] 60 mg PO DAILY@89910/30/16 09/26/24 History Metoprolol Succinate (ER) [Toprol 50 mg PO DAILY@0900 10/30/16 09/26/24 History XL] Nitroglycerin Sl Tabs [Nitrostat] 0.4 mg SL Q5M PRN 10/30/16 09/26/24 History Omeprazole 20 mg PO HS@1800 10/30/16 09/26/24 History Levothyroxine Sodium [Synthroid] 50 mcg PO DAILY@0900 01/13/18 09/26/24 History Fish Oil 600mg 600 mg PO DAILY@0900 10/19/20 09/26/24 History Niacin (Inositol Niacinate) 500 mg PO HS@1800 10/19/20 09/26/24 History [Niacin 500 mg Capsule] Apixaban [Eliquis] 5 mg PO BID@0900,1800 09/26/24 09/26/24 History Atorvastatin [Lipitor] 40 mg PO DAILY@0900 09/26/24 09/26/24 History Calcium Carbonate/Vitamin D3 1 tab PO DAILY@0900 09/26/24 09/26/24 History [Calcium 600 mg-D3 20 mcg (800 unit)] Dulaglutide [Trulicity] 0.75 mg SQ TH@0909/26/24 09/26/24 History metFORMIN HCL 1,000 mg PO BID-W/MEALS 09/26/24 09/26/24 History Allergies Allergy/AdvReac Type Severity Reaction Status Date / Time No Known Allergies Allergy Verified 09/26/24 19:24 Physical Exam Vitals: Vital Signs Temp Pulse Pulse Resp BP BP Pulse Ox 09/27/24 14:00 20 09/27/24 13:14 98.5 F 09/27/24 13:00 98.2 F 93 20 97/51 97 09/27/24 12:02 101.9 F H 09/27/24 11:41 100.2 F H 120 H 20 160/70 94 L 09/27/24 08:24 15 09/27/24 07:05 97.3 F L 81 15 129/71 96 09/27/24 02:29 98.0 F 87 15 169/76 96 09/26/24 22:22 97.5 F L 97 15 145/81 99 09/26/24 21:33 97.8 F 87 16 106/70 96 09/26/24 21:28 94 16 104/54 96 09/26/24 19:47 109 H 16 109/76 98 09/26/24 18:46 98.3 F 120 H 20 103/62 95 Intake and Output 09/27/24 09/27/24 09/27/24 06:59 14:59 22:59 Intake Total 445 Balance 445 Intake: Intake, IV Titration 91 Amount Heparin Sod,Pork in 0.45% 91 NaCl 25,000 unit In 0.45 % NaCl 1 250ml.bag @ 9. 585 UNITS/KG/HR 10 mls/hr IV .Q24H [facility] Rx#: [id number] Oral 354 Other: Voiding Method Toilet Toilet # Voids 1 1 # Bowel Movements 0 GENERAL DESCRIPTION: Elderly male lying in bed, no distress. No tachypnea or accessory muscle of respiration use. HEENT: Shows Pallor , no scleral icterus. Oral mucous membrane is dry. No pharyngeal erythema or thrush NECK: Trachea central, no thyromegaly. LUNGS: Unlabored breathing. Decreased breath sound at the base HEART: S1, S2, regular rate and rhythm. No loud murmur ABDOMEN: Soft, no tenderness , EXTREMITIES: No edema of feet. SKIN: No rash, no masses palpable. NEUROLOGICAL: The patient is awake, alert, oriented x3, mood and affect normal. Results CBC & Chem 7: 09/27/24 06:05 09/27/24 06:05 Labs: Abnormal Lab Results - Last 24 Hours (Table) 09/26/24 09/26/24 09/26/24 Range/Units 18:49 20:01 20:01 RBC 3.94 L (4.30-5.90) m/uL Hgb 11.7 L (13.0-17.5) gm/dL Hct 34.4 L (39.0-53.0) % Lymphocytes # (1.0-4.8) k/uL APTT (22.0-30.0) sec D-Dimer 0.90 H (<0.60) mg/L FEU Sodium (137-145) mmol/L Carbon Dioxide (22-30) mmol/L BUN (9-20) mg/dL Creatinine (0.66-1.25) mg/dL Glucose (74-99) mg/dL POC Glucose (mg/dL) 146 H (70-110) mg/dL Calcium (8.4-10.2) mg/dL Magnesium (1.6-2.3) mg/dL AST (17-59) U/L ALT (4-49) U/L Alkaline Phosphatase (38-126) U/L Troponin I (0.000-0.034) ng/mL Albumin (3.5-5.0) g/dL 09/26/24 09/27/24 09/27/24 Range/Units 20:01 00:01 00:30 RBC 3.75 L (4.30-5.90) m/uL Hgb 11.0 L (13.0-17.5) gm/dL Hct 33.2 L (39.0-53.0) % Lymphocytes # 0.9 L (1.0-4.8) k/uL APTT (22.0-30.0) sec D-Dimer (<0.60) mg/L FEU Sodium 130 L (137-145) mmol/L Carbon Dioxide 18 L (22-30) mmol/L BUN 28 H (9-20) mg/dL Creatinine (0.66-1.25) mg/dL Glucose 145 H (74-99) mg/dL POC Glucose (mg/dL) (70-110) mg/dL Calcium (8.4-10.2) mg/dL Magnesium 1.2 L (1.6-2.3) mg/dL AST 133 H (17-59) U/L ALT 108 H (4-49) U/L Alkaline Phosphatase 135 H (38-126) U/L Troponin I 0.109 H* (0.000-0.034) ng/mL Albumin 3.4 L (3.5-5.0) g/dL 09/27/24 09/27/24 09/27/24 Range/Units 06:05 06:05 06:05 RBC 3.61 L (4.30-5.90) m/uL Hgb 10.8 L (13.0-17.5) gm/dL Hct 31.5 L (39.0-53.0) % Lymphocytes # 0.83 L (1.0-4.8) k/uL APTT 37.3 H (22.0-30.0) sec D-Dimer (<0.60) mg/L FEU Sodium 131 L (137-145) mmol/L Carbon Dioxide 21 L (22-30) mmol/L BUN (9-20) mg/dL Creatinine 0.59 L (0.66-1.25) mg/dL Glucose 143 H (74-99) mg/dL POC Glucose (mg/dL) (70-110) mg/dL Calcium 8.2 L (8.4-10.2) mg/dL Magnesium 1.4 L (1.6-2.3) mg/dL AST 111 H (17-59) U/L ALT 111 H (4-49) U/L Alkaline Phosphatase 128 H (38-126) U/L Troponin I (0.000-0.034) ng/mL Albumin 3.0 L (3.5-5.0) g/dL 09/27/24 09/27/24 Range/Units 06:05 15:19 RBC (4.30-5.90) m/uL Hgb (13.0-17.5) gm/dL Hct (39.0-53.0) % Lymphocytes # (1.0-4.8) k/uL APTT 43.0 H (22.0-30.0) sec D-Dimer (<0.60) mg/L FEU Sodium (137-145) mmol/L Carbon Dioxide (22-30) mmol/L BUN (9-20) mg/dL Creatinine (0.66-1.25) mg/dL Glucose (74-99) mg/dL POC Glucose (mg/dL) (70-110) mg/dL Calcium (8.4-10.2) mg/dL Magnesium (1.6-2.3) mg/dL AST (17-59) U/L ALT (4-49) U/L Alkaline Phosphatase (38-126) U/L Troponin I 0.105 H* (0.000-0.034) ng/mL Albumin (3.5-5.0) g/dL Assessment and Plan (1) SIRS (systemic inflammatory response syndrome) Current Visit: Yes Status: Acute Code(s): R65.10 - SIRS OF NON-INFECTIOUS O RIGIN W/O ACUTE ORGAN DYSFUNCTION SNOMED Code(s): 270857902 Plan: 1patient did have features of SIRS in this patient with a fever and tachycardia however he did have normal white count and did have predominantly respiratory symptoms however the chest x-ray did not show any consolidation with a question of possible viral etiology 2-we will wait for the COVID RSV and influenza PCR to be completed as well as UA 3-if above workup negative we will obtain a CT of abdominal pelvis to rule out intra-abdominal pathology 4-continue with empiric Rocephin while awaiting further workup to be completed We will follow on clinical condition and cultures to further adjust medication if needed Thank you for this consultation we will follow the patient along with you Dictation was produced using [employer] dictation software. please excuse any grammatical, word or spelling errors. Time with Patient: Greater than 30
[2024-09-28] MEDS: ASPIRIN 325 MG TAB PO ONE (06:10)
[2024-09-28] MEDS ORDERED: HEPARIN SODIUM,PORCINE 10,000 UNIT in SODIUM CHLORIDE 0.9% 1,000 ML IRRIGATION PRN (07:00)
[2024-09-28] MEDS ORDERED: HEPARIN SODIUM,PORCINE (1 ML) 2,500 UNIT in SODIUM CHLORIDE 0.9% 250 ML IRRIGATION PRN (07:00)
[2024-09-28 08:39] LABS: Basophils # (A) 0.04 X 10*3/uL (0.00-0.10); Basophils % (A) 0.5 %; Eosinophils # (A) 0.14 X 10*3/uL (0.04-0.35); Eosinophils % (A) 1.6 %; HCT 32.8 % (39.6-50.0); HGB 10.9 g/dL (13.0-17.0); Lymphocytes # (A) 0.66 X 10*3/uL (0.90-5.00); Lymphocytes % (A) 7.8 %; MCH 29.6 pg (27.0-32.0); MCHC 33.2 g/dL (32.0-37.0); MCV 89.1 FL (80.0-97.0); Mean Platelet Volume 10.9 FL (9.5-12.2); Monocytes # (A) 0.54 X 10*3/uL (0.20-1.00); Monocytes % (A) 6.3 %; NRBC Per 100 WBC 0 X 10*3/uL (0.00-0.01); Neutrophils # (A) 7.07 X 10*3/uL (1.80-7.70); Neutrophils % (A) 83.1 %; Platelet Count 199 X 10*3/uL (140-440); RBC 3.68 X 10*6/uL (4.40-5.60); RDW 13.7 % (11.5-14.5); WBC 8.51 X 10*3/uL (4.50-10.00)
[2024-09-28] MEDS: NON FORMULARY DRUG (Dulaglutide [Trulicity] 0.75 MG/0.5 ML Each) SQ SCH (08:50)
[2024-09-28] MEDS: CALCIUM CARB-VIT D 500 MG-5 MCG TAB PO SCH (08:56)
[2024-09-28] MEDS: LEVOTHYROXINE 50 MCG TAB PO SCH (08:56)
[2024-09-28 09:31] LABS: HCT 29.5 % (39.0-53.0); HGB 10.2 gm/dL (13.0-17.5); MCH 30.4 pg (25.0-35.0); MCHC 34.4 g/dL (31.0-37.0); MCV 88.2 fL (80.0-100.0); Mean Platelet Volume 7.7; Platelet Count 181 k/uL (150-450); RBC 3.35 m/uL (4.30-5.90); RDW 13.9 % (11.5-15.5); WBC 7.8 k/uL (3.8-10.6)
[2024-09-28] MEDS: IOPAMIDOL CONTRAST (ORAL USE) VIAL PO PRN (09:56)
--- NOTE | 2024-09-28 10:06 | P.PN ---
Subjective Progress Note Date: 09/28/24 Consult reason: chest pain History of present illness: This is an 84-year-old male patient of Dr. Eric Reed with past medical history of coronary artery disease with 6 stents per patient in the past done at [facility] around 2003, carotid artery disease status post carotid stents at [facility] 2 years ago, hypertension, dyslipidemia, diabetes, persistent atrial fibrillation on Eliquis. We have been asked to evaluate the patient for chest pain. Patient states that on Wednesday he was sweating to the point that his T-shirt was all wet and had a staggering gait. He states he ended up falling into the wall, feeling dizzy and felt disoriented. He sat down to read the Bible and was trembling for about 1 hour. Then yesterday he had an eye doctor's appointment with Dr. Zamudio. He went home and developed pressure in his chest like someone was sitting on his chest. He checked his heart rate was 108 and his blood pressure was low. He called his daughter who picked him up and brought him into the emergency center. His last Eliquis intake was on 09/26 in the morning. Patient has been started on a heparin drip. Discussed recommenda tions for cardiac catheterization and he is agreeable to move forward with this and will be scheduled tomorrow. Patient also gives history that his on 08/17. Blood pressure 129/71, heart rate 81, pulse ox 96% on room air. Patient is currently chest pain-free. -EKG: Atrial fibrillation at 108 bpm -Chest x-ray: Cardiomegaly with prominence of the interstitial markings which were could reflect mild pulmonary vascular congestion. -CT of the head and neck: No acute intracranial process. No acute fracture or traumatic subluxation of the cervical spine. -Laboratory studies: WBC 6.6, hemoglobin 10.8. Sodium 131, potassium 3.6, creatinine 0.59. Troponin 0.015, 0.109 and 0.105. AST 111, ALT 111, alkaline phosphatase 128. -Home cardiac medications: Eliquis 5 mg twice daily, aspirin 81 mg daily, atorvastatin 40 mg daily, isosorbide 60 mg daily, metoprolol succinate 50 mg daily, Nitrostat as needed, also on levothyroxine. -Echocardiogram performed on 05/25/2024 in the office revealed EF 55%, moderate left ventricular hypertrophy, moderate aortic regurgitation, mild mitral r egurgitation, moderate tricuspid regurgitation, PASP 53 mmHg. -Lexiscan Cardiolite stress test performed in the office on 05/19/2021 revealed normal study. 09/28 Yesterday, patient developed fever in the afternoon and cardiac catheterization scheduled for today has been postponed. Patient updated regarding this. He remains on a heparin drip which we will continue for full 48 hours. Catheterization may be rescheduled on Wednesday. Due to the fever, consult was added for ID and patient is scheduled for CT of the abdomen pelvis today. Blood cultures and urine cultures have been obtained. Blood pressure 129/68, heart rate 81, pulse ox 98% on room air. Repeat blood work reveals normal WBC at 7.8, hemoglobin 10.2. Echocardiogram results reviewed with the patient. Echocardiogram revealed EF of 55 to 60%, mitral annular calcification and aortic valve sclerosis without significant restriction. Mild to moderate aortic regurgitation and tricuspid regurgitation, minimal mitral regurgitation. No pericardial effusion. No pulmonary hypertension. Physical examination: Gen: This is a 84-year-old male in no acute distress. History of coronary artery disease with previous PCI at [facility] VS: reviewed HEENT: Head is atraumatic, normocephalic. Pupils equal, round. Sclerae is anicte jono. NECK: Supple. No JVD. LUNGS: Clear to auscultation. No wheezes or rhonchi. No intercostal re tractions. HEART: Regular rate and rhythm. No murmur. ABDOMEN: Soft No tenderness. EXTREMITIES: No pedal edema. No calf tenderness. NEUROLOGICAL: Patient is awake, alert and oriented x3. Assessment: NSTEMI Coronary artery disease with previous PCI at [facility] prior to 2003 Carotid artery disease status post carotid stents at [facility] 2 years ago Hypertension Dyslipidemia Diabetes Persistent atrial fibrillation on Eliquis at home Plan: Continue current cardiac medications: Aspirin 81 mg daily, atorvastatin 40 mg daily, Imdur 60 mg daily, Lopressor 50 mg twice daily Continue to hold Eliquis Continue heparin drip Patient will be scheduled for cardiac catheterization on Wednesday at 7:[address] Reed Echocardiogram revealed normal LV size and function, mild to moderate aortic regurgitation tricuspid regurgitation, minimal mitral regurgitation. Further recommendations to follow based upon clinical course Nurse practitioner note has been reviewed, I agree with documented findings and plan of care. Patient was seen and examined. Objective - Vital Signs Vital signs: Vital Signs Temp 98.3 F 09/28/24 07:00 Pulse 81 09/28/24 07:00 Resp 16 09/28/24 07:00 BP 129/68 09/28/24 07:00 Pulse Ox 98 09/28/24 02:00 FiO2 Intake & Output 09/27/24 09/28/24 09/28/24 18:59 06:59 18:59 Intake Total 681 154.097 Output Total 100 Balance 581 154.097 Intake: Intake, IV Titration 91 154.097 Amount Heparin Sod,Pork in 0.45% 91 154.097 NaCl 25,000 unit In 0.45 % NaCl 1 250ml.bag @ 9. 585 UNITS/KG/HR 10 mls/hr IV .Q24H [facility] Rx#: [id number] Oral 590 Output: Urine 100 Other: Voiding Method Toilet Toilet # Voids 1 1 # Bowel Movements 0 - Labs CBC & Chem 7: 09/28/24 09:06 09/27/24 06:05 Labs: Abnormal Lab Results - Last 24 Hours (Table) 09/27/24 09/27/24 Range/Units 13:29 15:19 APTT 43.0 H (22.0-30.0) sec Urine Protein 1+ H (Negative) Urine Bilirubin 1+ H (Negative) Hyaline Casts 40 H (0-2) /lpf Urine Mucus Few H (None) /hpf
--- NOTE | 2024-09-28 12:10 | CT ---
EXAMINATION TYPE: CT abdomen pelvis w con DATE OF EXAM: 09/28/2024 11:53 AM COMPARISON: None. CLINICAL INDICATION: Male, 84 years old with history of Fever, elevated liver enzymes, FEVER AND ELEV ATED LIVER ENZYMES. TECHNIQUE:CT scan of the abdomen and pelvis is performed with Oral Contrast and with IV Contrast, pat ient injected with 100ml mL of Isovue 300. CT DLP: 1401.20 mGycm, Automated exposure control for dose reduction was used. FINDINGS: LUNG BASES-: No visible nodule. No infiltrate. LIVER/GB: Uncomplicated cholelithiasis. No space occupying hepatic lesion. Biliary tree is of norm al caliber. Mild hepatic steatosis. PANCREAS: No inflammation. No distinct mass. SPLEEN: No splenic enlargement. No lesion seen. ADRENALS: No nodule. No thickening. KIDNEYS/BLADDER: No hydronephrosis. No nephrolithiasis. No distinct renal mass. Urinary bladder g rossly unremarkable. BOWEL: Normal appendix. Normal bowel caliber. No inflammation. Moderate sigmoid diverticulosis with out diverticulitis. GENITAL ORGANS: No gross abnormality. LYMPH NODES: No greater than 1cm abdominal or pelvic lymph nodes are appreciated. AORTA: Infrarenal abdominal aortic aneurysm measuring 3.8 cm AP dimension. OSSEOUS STRUCTURES: No significant abnormality is seen. OTHER: No abscess or free air. IMPRESSION: 1. No acute process identified to account for the patient's symptoms. [facility], , 09/28/2024 12:08 PM
[2024-09-28 12:44] LABS: INR 1.15 sec (0.93-1.11)
--- NOTE | 2024-09-28 16:12 | P.PN ---
Subjective Progress Note Date: 09/28/24 Principal diagnosis: Reason for follow-up is here with possible pneumonia Patient is 84-year-old male past medical history difficult for hypertension hyperlipidemia hypothyroidism coronary artery disease presenting to the hospital after the patient felt dizzy and fall onto the wall patient did have a fever prompting this consultation. On today's evaluation that is 09/28/2024,the patient did have improvement in his fever pattern with a low-grade fever of 99.9, patient is breathing comfortably on room air denies any chest pain or shortness with occasional cough no abdominal pain or diarrhea. Patient did have a white count 7.8 focus is 14.[address] did not show any acute findings Objective - Vital Signs Vital signs: Vital Signs Temp 98.3 F 09/28/24 07:00 Pulse 81 09/28/24 07:00 Resp 16 09/28/24 07:00 BP 129/68 09/28/24 07:00 Pulse Ox 98 09/28/24 02:00 FiO2 Intake & Output 09/27/24 09/28/24 09/28/24 18:59 06:59 18:59 Intake Total 681 154.097 150.874 Output Total 100 Balance 581 154.097 150.874 Intake: Intake, IV Titration 91 154.097 150.874 Amount Heparin Sod,Pork in 0.45% 91 154.097 150.874 NaCl 25,000 unit In 0.45 % NaCl 1 250ml.bag @ 9. 585 UNITS/KG/HR 10 mls/hr IV .Q24H [facility] Rx#: [id number] Oral 590 Output: Urine 100 Other: Voiding Method Toilet Toilet Toilet # Voids 1 1 # Bowel Movements 0 - Exam GENERAL DESCRIPTION: An elderly male lying in bed in no distress RESPIRATORY SYSTEM: Unlabored breathing , decreased breath sounds at bases HEART: S1 S2 regular rate and rhythm , ABDOMEN: Soft , no tenderness EXTREMITIES: No edema feet - Labs CBC & Chem 7: 09/28/24 09:06 09/27/24 06:05 Labs: Abnormal Lab Results - Last 24 Hours (Table) 09/27/24 09/27/24 09/28/24 Range/Units 13:29 15:19 04:01 RBC 3.68 L (4.40-5.60) X 10*6/uL Hgb 10.9 L (13.0-17.0) g/dL Hct 32.8 L (39.6-50.0) % Immature Gran # 0.06 H (0.00-0.04) X 10*3/uL Lymphocytes # 0.66 L (0.90-5.00) X 10*3/uL APTT 43.0 H (22.0-30.0) sec Procalcitonin (0.02-0.50) ng/mL Urine Protein 1+ H (Negative) Urine Bilirubin 1+ H (Negative) Hyaline Casts 40 H (0-2) /lpf Urine Mucus Few H (None) /hpf 09/28/24 09/28/24 09/28/24 Range/Units 04:01 09:06 10:20 RBC 3.35 L (4.40-5.60) X 10*6/uL Hgb 10.2 L (13.0-17.0) g/dL Hct 29.5 L (39.6-50.0) % Immature Gran # (0.00-0.04) X 10*3/uL Lymphocytes # (0.90-5.00) X 10*3/uL APTT 40.3 H (22.0-30.0) sec Procalcitonin 14.60 H (0.02-0.50) ng/mL Urine Protein (Negative) Urine Bilirubin (Negative) Hyaline Casts (0-2) /lpf Urine Mucus (None) /hpf Assessment and Plan (1) SIRS (systemic inflammatory response syndrome) Current Visit: Yes Status: Acute Code(s): R65.10 - SIRS OF NON-INFECTIOUS ORIGIN W/O ACUTE ORGAN DYSFUNCTION SNOMED Code(s): 129950865 (2) Pneumonia Current Visit: Yes Status: Acute Code(s): J18.9 - PNEUMONIA, UNSPECIFIED ORGANISM SNOMED Code(s): 775413504 Plan: 1patient did have features of SIRS in this patient with a fever and tachycardia however he did have normal white count and did have predominantly respiratory symptoms however the chest x-ray did not show any consolidation with a question of possible viral etiology 2-patient did have a negative COVID RSV and influenza PCR CT abdominal pelvis came back negative as well 3-patient did have elevated procalcitonin with respiratory symptom more likely dealing with pneumonia and the fever have improved with Rocephin to continue try to obtain a sputum Dictation was produced using [employer] dictation software. please excuse any grammatical, word or spelling errors. Time with Patient: Less than 30
--- NOTE | 2024-09-28 20:55 | PN ---
PROGRESS NOTE DATE OF SERVICE: 09/28/2024 SUBJECTIVE: This 84-year-old gentleman, admitted with chest pain and acute brs-BM-llpvdky elevation myocardial infarction was slated to have cardiac catheterization yesterday, but the patient had features of sepsis with rigors, shakes, and chills also. CT scan is demonstrating no acute abnormality. The white count is normal. Procalcitonin elevated up to 14.6. There is no obvious source of infection. The viral titers are negative also. The patient is on empiric antibiotics. PAST MEDICAL HISTORY: Reviewed. REVIEW OF SYSTEMS: Fourteen-point review of systems negative except as mentioned earlier. CURRENT MEDICATIONS: Reviewed. PHYSICAL EXAMINATION: VITAL SIGNS: Pulse is 81, blood pressure 129/60, respirations 16. HEENT: Conjunctivae normal. NECK: No JVD. CARDIOVASCULAR: S1, S2. RESPIRATIONS: Breath sounds diminished at the bases. A few scattered rhonchi. ABDOMEN: Soft. NERVOUS SYSTEM: Nonfocal. LABORATORY DATA: Noted. ASSESSMENT: 1. Chest pain, possible acute dyz-YK-sgzyjpc-elevation myocardial infarction with troponin of 0.105 for cardiac catheterization on Wednesday. 2. Shaking chills with possible sepsis of undetermined origin, present on admission. 3. Elevated serum procalcitonin. 4. Elevated LFTs of undetermined etiology. 5. Hyponatremia. 6. Anemia. 7. Hypertension. 8. Hyperlipidemia. 9. History of abdominal aortic aneurysm. RECOMMENDATIONS AND DISCUSSION: Recommended to continue current medications, continue symptomatic treatment. Otherwise, continue with empiric antibiotics. As mentioned earlier, the cultures are negative so far. We will repeat labs. Closely follow with Infectious Disease and Cardiology. Prognosis maybe guarded because of multiple complex medical issues. Further recommendations to follow. MMODL / IJN: [id number] /
[2024-09-28] MEDS: CEFEPIME 2 GM in SODIUM CHLORIDE 0.9% 100 ML IVPB SCH (21:55)
[2024-09-29 04:40] LABS: Glucose,Whole Blood 156 mg/dL (70-110)
[2024-09-29] MEDS: ATORVASTATIN 80 MG TAB PO ONE (05:27)
[2024-09-29] MEDS: ASPIRIN 325 MG TAB PO ONE (05:27)
--- NOTE | 2024-09-29 06:26 | XR ---
EXAM: XR Chest, 1 View CLINICAL HISTORY: ITS.REASON XR Reason: fever, chills TECHNIQUE: Frontal view of the chest. COMPARISON: X-ray dated 09/26/2024. FINDINGS: Lungs: Question of a confluent bilateral lower lobe airspace opacity. Chronic lung markings are seen bilaterally. Pleural space: Unremarkable. No pneumothorax. Heart: Mild to moderate enlargement of the cardiac silhouette. Mediastinum: Unremarkable. Normal mediastinal contour. Bones/joints: Degenerative changes are seen in the spine and shoulders. No acute fracture. Vasculature: Calcifications overlie the aorta. IMPRESSION: Chronic lung markings versus bilateral lower lobe pneumonia.
--- NOTE | 2024-09-29 06:28 | CT ---
EXAM: CT Head Without Intravenous Contrast CLINICAL HISTORY: ITS.REASON CT Reason: Slurred speech, nystagmus, weakness TECHNIQUE: Axial computed tomography images of the head/brain without intravenous contrast. This CT exam was performed using one or more of the following dose reduction techniques: automated exposure control, adjustment of the mA and/or kV according to patient size, and/or use of iterative reconstruction technique. COMPARISON: CT dated 09/26/2024. FINDINGS: Brain: Confluent hypodense changes are seen within the periventricular and deep white matter. No hemorrhage. Ventricles: Symmetric widening of the ventricles and sulci without evidence of midline shift or hydrocephalus. Bones/joints: Unremarkable. No acute fracture. Soft tissues: Unremarkable. Sinuses: Unremarkable as visualized. No acute sinusitis. Mastoid air cells: Unremarkable as visualized. No mastoid effusion. IMPRESSION: Chronic small vessel ischemic change, mild cerebral atrophy and no acute intracranial findings. No intracranial hemorrhage.
[2024-09-29] MEDS: IBUPROFEN 400 MG TAB PO STA (08:17)
[2024-09-29 08:40] LABS: Basophils % (A) 0 %; Eosinophils % (A) 1 %; HCT 30.9 % (39.0-53.0); HGB 10.2 gm/dL (13.0-17.5); Lymphocytes # (A) 0.4 k/uL (1.0-4.8); Lymphocytes % (A) 5 %; MCH 29.1 pg (25.0-35.0); MCV 88.1 fL (80.0-100.0); Mean Platelet Volume 7.7; Monocytes # (A) 0.3 k/uL (0-1.0); Monocytes % (A) 3 %; Neutrophils # (A) 6.8 k/uL (1.3-7.7); Neutrophils % (A) 90 %; Platelet Count 197 k/uL (150-450); RBC 3.51 m/uL (4.30-5.90); RDW 13.9 % (11.5-15.5); WBC 7.5 k/uL (3.8-10.6)
[2024-09-29 08:53] LABS: ALT 77 U/L (4-49); AST 43 U/L (17-59); African American GFR (CKD) >90 (>60 ml/min/1.73 sqM); Albumin 2.6 g/dL (3.5-5.0); Albumin/Globulin Ratio 0.8; Alkaline Phosphatase 160 U/L (38-126); Anion Gap 10 mmol/L; Blood Urea Nitrogen 8 mg/dL (9-20); Calcium 7.7 mg/dL (8.4-10.2); Carbon Dioxide 21 mmol/L (22-30); Chloride 102 mmol/L (98-107); Globulin 3.2 g/dL; Glucose 163 mg/dL (74-99); Non-African American GFR(CKD) >90 (>60 ml/min/1.73 sqM); Potassium 3.6 mmol/L (3.5-5.1); Sodium 133 mmol/L (137-145); Total Bilirubin 0.9 mg/dL (0.2-1.3); Total Protein 5.8 g/dL (6.3-8.2)
[2024-09-29] MEDS: HEPARIN SODIUM,PORCINE 5,000 UNIT/ML 1 ML VIAL SQ SCH (08:57)
--- NOTE | 2024-09-29 12:29 | P.PN ---
Subjective Progress Note Date: 09/29/24 Consult reason: chest pain History of present illness: This is an 84-year-old male patient of Dr. Eric Reed with past medical history of coronary artery disease with 6 stents per patient in the past done at [facility] around 2003, carotid artery disease status post carotid stents at [facility] 2 years ago, hypertension, dyslipidemia, diabetes, persistent atrial fibrillation on Eliquis. We have been asked to evaluate the patient for chest pain. Patient states that on Wednesday he was sweating to the point that his T-shirt was all wet and had a staggering gait. He states he ended up falling into the wall, feeling dizzy and felt disoriented. He sat down to read the Bible and was trembling for about 1 hour. Then yesterday he had an eye doctor's appointment with Dr. Zamudio. He went home and developed pressure in his chest like someone was sitting on his chest. He checked his heart rate was 108 and his blood pressure was low. He called his daughter who picked him up and brought him into the emergency center. His last Eliquis intake was on 09/26 in the morning. Patient has been started on a heparin drip. Discussed recommenda tions for cardiac catheterization and he is agreeable to move forward with this and will be scheduled tomorrow. Patient also gives history that his on 08/17. Blood pressure 129/71, heart rate 81, pulse ox 96% on room air. Patient is currently chest pain-free. -EKG: Atrial fibrillation at 108 bpm -Chest x-ray: Cardiomegaly with prominence of the interstitial markings which were could reflect mild pulmonary vascular congestion. -CT of the head and neck: No acute intracranial process. No acute fracture or traumatic subluxation of the cervical spine. -Laboratory studies: WBC 6.6, hemoglobin 10.8. Sodium 131, potassium 3.6, creatinine 0.59. Troponin 0.015, 0.109 and 0.105. AST 111, ALT 111, alkaline phosphatase 128. -Home cardiac medications: Eliquis 5 mg twice daily, aspirin 81 mg daily, atorvastatin 40 mg daily, isosorbide 60 mg daily, metoprolol succinate 50 mg daily, Nitrostat as needed, also on levothyroxine. -Echocardiogram performed on 05/25/2024 in the office revealed EF 55%, moderate left ventricular hypertrophy, moderate aortic regurgitation, mild mitral r egurgitation, moderate tricuspid regurgitation, PASP 53 mmHg. -Lexiscan Cardiolite stress test performed in the office on 05/19/2021 revealed normal study. 09/28 Yesterday, patient developed fever in the afternoon and cardiac catheterization scheduled for today has been postponed. Patient updated regarding this. He remains on a heparin drip which we will continue for full 48 hours. Catheterization may be rescheduled on Wednesday. Due to the fever, consult was added for ID and patient is scheduled for CT of the abdomen pelvis today. Blood cultures and urine cultures have been obtained. Blood pressure 129/68, heart rate 81, pulse ox 98% on room air. Repeat blood work reveals normal WBC at 7.8, hemoglobin 10.2. Echocardiogram results reviewed with the patient. Echocardiogram revealed EF of 55 to 60%, mitral annular calcification and aortic valve sclerosis without significant restriction. Mild to moderate aortic regurgitation and tricuspid regurgitation, minimal mitral regurgitation. No pericardial effusion. No pulmonary hypertension. 09/28 Overnight, patient continued to have fevers and also had episode this morning at 5 AM with slurred speech, nystagmus and lower extremity weakness. Consult was added for neurology and he underwent a stat CT of the brain which was negative for acute findings. He also had a chest x-ray that showed chronic lung markings versus bilateral lower lobe pneumonia. Blood culture is positive for Pseudomonas. ID is following. Patient was scheduled for cardiac catheterization today which will be canceled and postponed until patient's febrile illness has been resolved. Plan is for medical management only. Physical examination: Gen: This is a 84-year-old male in no acute distress. History of coronary artery disease with previous PCI at [facility] VS: reviewed HEENT: Head is atraumatic, normocephalic. Pupils equal, round. Sclerae is anicteric. NECK: Supple. No JVD. LUNGS: Clear to auscultation. No wheezes or rhonchi. No intercostal retractions. HEART: Regular rate and rhythm. No murmur. ABDOMEN: Soft No tenderness. EXTREMITIES: No pedal edema. No calf tenderness. NEUROLOGICAL: Patient is awake, alert and oriented x3. Assessment: Febrile illness Pseudomonas bacteremia Possible TIA NSTEMI Coronary artery disease with previous PCI at [facility] prior to 2003 Carotid artery disease status post carotid stents at [facility] 2 years ago Hypertension Dyslipidemia Diabetes Persistent atrial fibrillation on Eliquis at home Plan: Continue current cardiac medications: Aspirin 81 mg daily, atorvastatin 40 mg daily, Imdur 60 mg daily, Lopressor 50 mg twice daily Discontinue heparin drip and resume patient on Eliquis 5 mg twice daily No further cardiac workup at this time until patient's febrile illness has been resolved Echocardiogram revealed normal LV size and function, mild to moderate aortic regurgitation tricuspid regurgitation, minimal mitral regurgitation. Nurse practitioner note has been reviewed, I agree with documented findings and plan of care. Patient was seen and examined. Objective - Vital Signs Vital signs: Vital Signs Temp 100.3 F H 09/29/24 07:49 Pulse 80 09/29/24 07:49 Resp 18 09/29/24 07:49 BP 107/69 09/29/24 07:49 Pulse Ox 99 09/29/24 04:30 FiO2 Intake & Output 09/28/24 09/29/24 09/29/24 18:59 06:59 18:59 Intake Total 730.000 Balance 730.000 Intake: Intake, IV Titration 250.000 Amount Heparin Sod,Pork in 0.45% 250.000 NaCl 25,000 unit In 0.45 % NaCl 1 250ml.bag @ 9. 585 UNITS/KG/HR 10 mls/hr IV .Q24H [facility] Rx#: [id number] Oral 480 Other: Voiding Method Toilet Toilet # Voids 2 3 - Labs CBC & Chem 7: 09/29/24 08:08 09/29/24 08:08 Labs: Abnormal Lab Results - Last 24 Hours (Table) 09/28/24 09/28/24 09/28/24 Range/Units 04:01 04:01 04:01 RBC 3.68 L (4.40-5.60) X 10*6/uL Hgb 10.9 L (13.0-17.0) g/dL Hct 32.8 L (39.6-50.0) % Immature Gran # 0.06 H (0.00-0.04) X 10*3/uL Lymphocytes # 0.66 L (0.90-5.00) X 10*3/uL ESR (0-20) mm/Hr PT 13.0 H (9.9-11.9) sec INR 1.15 H (0.93-1.11) sec APTT (22.0-30.0) sec POC Glucose (mg/dL) (70-110) mg/dL C-Reactive Protein (<1.0) mg/dL Procalcitonin 14.60 H (0.02-0.50) ng/mL 09/28/24 09/28/24 09/28/24 Range/Units 09:06 10:20 14:32 RBC 3.35 L (4.40-5.60) X 10*6/uL Hgb 10.2 L (13.0-17.0) g/dL Hct 29.5 L (39.6-50.0) % Immature Gran # (0.00-0.04) X 10*3/uL Lymphocytes # (0.90-5.00) X 10*3/uL ESR 71 H (0-20) mm/Hr PT (9.9-11.9) sec INR (0.93-1.11) sec APTT 40.3 H (22.0-30.0) sec POC Glucose (mg/dL) (70-110) mg/dL C-Reactive Protein (<1.0) mg/dL Procalcitonin (0.02-0.50) ng/mL 09/28/24 09/29/24 09/29/24 Range/Units 14:32 04:39 06:07 RBC (4.40-5.60) X 10*6/uL Hgb (13.0-17.0) g/dL Hct (39.6-50.0) % Immature Gran # (0.00-0.04) X 10*3/uL Lymphocytes # (0.90-5.00) X 10*3/uL ESR (0-20) mm/Hr PT (9.9-11.9) sec INR (0.93-1.11) sec APTT 43.4 H (22.0-30.0) sec POC Glucose (mg/dL) 156 H (70-110) mg/dL C-Reactive Protein 25.8 H (<1.0) mg/dL Procalcitonin (0.02-0.50) ng/mL Microbiology - Last 24 Hours (Table) 09/27/24 15:19 Blood Culture Gram Stain - Preliminary Blood Blood Culture - Preliminary Molecular ID 09/27/24 16:13 Urine Culture - Final Urine,Clean Catch
[2024-09-29] MEDS ORDERED: RX INFO: IV CONTRAST WAS GIVEN 1 EACH MISC MISCELLANE PRN (13:15)
[2024-09-29] MEDS: APIXABAN 5 MG TAB PO SCH (13:33)
--- NOTE | 2024-09-29 14:38 | CT ---
EXAMINATION TYPE: CT chest w con CT DLP: 639.3 mGycm, Automated exposure control for dose reduction was used. DATE OF EXAM: 09/29/2024 2:29 PM COMPARISON: Chest radiograph 09/26/2024 CLINICAL INDICATION:Male, 84 years old with history of sepsis, hypoxic, fevers; PHH, fever, sepsis TECHNIQUE: Multiple axial images were obtained through the chest following the administration of 100 cc of Isovue 300. . Coronal and sagittal reformats reviewed. FINDINGS: LUNGS/ PLEURA: Biapical pleural-parenchymal scarring. Moderate centrilobular emphysematous changes wh ich is most pronounced within the right upper lobe. Mild bilateral lower lobe dependent subsegmental atelectasis. No focal consolidation, pneumothorax, or pleural effusion. No suspicious pulmonary nodul e or mass. AIRWAY: Patent and unremarkable.. HEART: Cardiomegaly is demonstrated.No pericardial effusion. Moderate coronary artery calcifications present. MEDIASTINUM: No evidence of adenopathy. VASCULATURE: No aortic aneurysm. Moderate atherosclerotic calcification of the aorta and its branche s. High-grade stenosis at the origin of the left common carotid artery secondary to calcified and non calcified plaque. No evidence for central pulmonary embolism. MUSCULOSKELETAL: No acute osseous abnormalities SOFT TISSUES/LYMPH NODES: Bilateral gynecomastia. LOWER NECK: No significant findings. UPPER ABDOMEN: Small hiatal hernia. Cholelithiasis. Mildly enlarged spleen measuring 15.0 cm in AP di mension. Moderate calcified plaque at the origin of the SMA and bilateral renal arteries. Mild calcif ied plaque at the origin of the celiac axis. IMPRESSION: 1. No CT evidence for acute thoracic process. 2. Moderate COPD changes. 3. Moderate atherosclerotic calcification of the aorta and its branches as described above. 4. Small hiatal hernia. 5. Cholelithiasis. 6. Mild splenomegaly. [facility], , 09/29/2024 2:35 PM
--- NOTE | 2024-09-29 16:18 | P.PN ---
Subjective Progress Note Date: 09/29/24 Principal diagnosis: Reason for follow-up is here with possible pneumonia Patient is 84-year-old male past medical history difficult for hypertension hyperlipidemia hypothyroidism coronary artery disease presenting to the hospital after the patient felt dizzy and fall onto the wall patient did have a fever prompting this consultation. On today's evaluation that is 09/29/2024, the patient continues to be afebrile, the patient is on 2 L nasal oxygen and breathing comfortably, the Pt slightly on the low side today though denies any chest pain or worsening cough no abdominal pain or diarrhea. Patient white count 7.5, creatinine 0.59 blood cultures came back positive with Pseudomonas aeruginosa Objective - Vital Signs Vital signs: Vital Signs Temp 97.6 F 09/29/24 11:53 Pulse 68 09/29/24 11:53 Resp 16 09/29/24 11:53 BP 91/60 09/29/24 11:53 Pulse Ox 97 09/29/24 11:53 FiO2 Intake & Output 09/28/24 09/29/24 09/29/24 18:59 06:59 18:59 Intake Total 730.000 240 Balance 730.000 240 Intake: Intake, IV Titration 250.000 Amount Heparin Sod,Pork in 0.45% 250.000 NaCl 25,000 unit In 0.45 % NaCl 1 250ml.bag @ 9. 585 UNITS/KG/HR 10 mls/hr IV .Q24H [facility] Rx#: [id number] Oral 480 240 Other: Voiding Method Toilet Toilet # Voids 2 3 - Exam GENERAL DESCRIPTION: An elderly male lying in bed in no distress RESPIRATORY SYSTEM: Unlabored breathing , decreased breath sounds at bases HEART: S1 S2 regular rate and rhythm , ABDOMEN: Soft , no tenderness EXTREMITIES: No edema feet - Labs CBC & Chem 7: 09/29/24 08:08 09/29/24 08:08 Labs: Abnormal Lab Results - Last 24 Hours (Table) 09/28/24 09/28/24 09/29/24 Range/Units 14:32 14:32 04:39 RBC (4.30-5.90) m/uL Hgb (13.0-17.5) gm/dL Hct (39.0-53.0) % Lymphocytes # (1.0-4.8) k/uL ESR 71 H (0-20) mm/Hr APTT (22.0-30.0) sec Sodium (137-145) mmol/L Carbon Dioxide (22-30) mmol/L BUN (9-20) mg/dL Creatinine (0.66-1.25) mg/dL Glucose (74-99) mg/dL POC Glucose (mg/dL) 156 H (70-110) mg/dL Calcium (8.4-10.2) mg/dL ALT (4-49) U/L Alkaline Phosphatase (38-126) U/L C-Reactive Protein 25.8 H (<1.0) mg/dL Total Protein (6.3-8.2) g/dL Albumin (3.5-5.0) g/dL 09/29/24 09/29/24 09/29/24 Range/Units 06:07 08:08 08:08 RBC 3.51 L (4.30-5.90) m/uL Hgb 10.2 L (13.0-17.5) gm/dL Hct 30.9 L (39.0-53.0) % Lymphocytes # 0.4 L (1.0-4.8) k/uL ESR (0-20) mm/Hr APTT 43.4 H (22.0-30.0) sec Sodium 133 L (137-145) mmol/L Carbon Dioxide 21 L (22-30) mmol/L BUN 8 L (9-20) mg/dL Creatinine 0.59 L (0.66-1.25) mg/dL Glucose 163 H (74-99) mg/dL POC Glucose (mg/dL) (70-110) mg/dL Calcium 7.7 L (8.4-10.2) mg/dL ALT 77 H (4-49) U/L Alkaline Phosphatase 160 H (38-126) U/L C-Reactive Protein (<1.0) mg/dL Total Protein 5.8 L (6.3-8.2) g/dL Albumin 2.6 L (3.5-5.0) g/dL Microbiology - Last 24 Hours (Table) 09/27/24 15:19 Blood Culture Gram Stain - Preliminary Blood Blood Culture - Preliminary Pseudomonas aeruginosa Molecular ID 09/27/24 16:13 Urine Culture - Final Urine,Clean Catch Assessment and Plan (1) SIRS (systemic inflammatory response syndrome) Current Visit: Yes Status: Acute Code(s): R65.10 - SIRS OF NON-INFECTIOUS ORIGIN W/O ACUTE ORGAN DYSFUNCTION SNOMED Code(s): 069174633 (2) Pneumonia Current Visit: Yes Status: Acute Code(s): J18.9 - PNEUMONIA, UNSPECIFIED ORGANISM SNOMED Code(s): 674695021 (3) Bacteremia due to Pseudomonas Current Visit: Yes Status: Acute Code(s): R78.81 - BACTEREMIA; B96.5 - PSEUDOMONAS (MALLEI) CAUSING DISEASES CLASSD ELSWHR SNOMED Code(s): 4392146576 Plan: 1patient did have features of SIRS in this patient with a fever and tachycardia however he did have normal white count and did have predominantly respiratory symptoms however the chest x-ray did not show any consolidation with a question of possible viral etiology 2-patient did have a negative COVID RSV and influenza PCR CT abdominal pelvis came back negative as well 3-patient did have elevated procalcitonin with respiratory symptom and now with a positive blood culture with Pseudomonas source possible pneumonia antibiotic were adjusted to cefepime yesterday CT chest has been discussed with admitting team and results will be followed Dictation was produced using [employer] dictation software. please excuse any grammatical, word or spelling errors. Time with Patient: Less than 30
--- NOTE | 2024-09-29 18:47 | US ---
EXAMINATION TYPE: US carotid duplex BILAT DATE OF EXAM: 09/29/2024 COMPARISON: 10/22/2020 CLINICAL INDICATION: Male, 84 years old with history of Syncope; AMS and fall on wednesday; Former smoke r x 50 years; Hx Bilateral Carotid stents; Patient denies any other signs, symptoms, or relevant hist ory Additional History: .... TECHNIQUE: Grayscale, color Doppler and spectral Doppler evaluation of the bilateral carotid systems and vertebral arteries. Indirect Doppler criteria was utilized. FINDINGS: EXAM MEASUREMENTS: RIGHT: Peak Systolic Velocity (PSV) cm/sec ----- Right CCA: 58 ----- Right ICA: 88 ----- Right ECA: 176 ICA/CCA ratio: 1.5 RIGHT: End Diastole cm/sec ----- Right CCA: 13 ----- Right ICA: 23 ----- Right ECA: 0 LEFT: Peak Systolic Velocity (PSV) cm/sec ----- Left CCA: 78 ----- Left ICA: 75 ----- Left ECA: 196 ICA/CCA ratio: 01.0 LEFT: End Diastole cm/sec ----- Left CCA: 18 ----- Left ICA: 27 ----- Left ECA: 15 VERTEBRALS (direction of flow): Right Vertebral: Antegrade Left Vertebral: Antegrade Rhythm: Arrhythmia SANFORIZER NOTES: Plaque seen bilateral CCAs extending into ICA and ECAs, intimal thickening seen, E levated velocities within Bilateral ECAs, and Bilateral carotid stents noted IMPRESSION: Bilateral carotid stents without elevated velocities to suggest hemodynamically significant stenosis of the internal carotid arteries. Plaque is seen within the bilateral CCA extending into the ICA and ECA. Mild bilateral external carotid artery stenosis. Criteria for Assigning % of Stenosis / Diameter reduction (Estimation based on the indirect measurements of the internal carotid artery velocities (ICA PSV). 1. Normal (no stenosis)=ICA PSV < 125 cm/s: ratio < 2.0: ICA EDV<40 cm/s. 2. Less than 50% stenosis=ICA PSV < 125 cm/s: ratio < 2.0: ICA EDV<40 cm/s. 3. 50 to 69% stenosis=ICA PSV of 125 to 230 cm/s: ration 2.0 ? 4.0: ICA EDV 40-100 cm/s. 4. Greater than 70% stenosis to near occlusion= ICA PSV > 230 cm/s: ratio > 4.0: ICA EDV > 100 cm/s. 5. Near occlusion= ICA PSV velocities may be low or undetectable: variable ratio and ICA EDV. 6. Total occlusion=unable to detect flow. [facility], , 09/29/2024 6:45 PM
[2024-09-29 19:28] LABS: Appearance,Urine Clear (Clear); Bilirubin,Urine Negative (Negative); Blood,Urine Negative (Negative); Color,Urine Yellow; Glucose,Urine (UA) Negative (Negative); Ketones,Urine Trace (Negative); Leukocyte Esterase,Urine Negative (Negative); Mucus,Urine Rare /hpf; Nitrite,Urine Negative (Negative); Protein,Urine 1+ (Negative); RBC,Urine 3 /hpf (0-5); Specific Gravity,Urine >1.050 (1.001-1.035); WBC,Urine 1 /hpf (0-5)
--- NOTE | 2024-09-30 02:24 | PN ---
PROGRESS NOTE DATE OF SERVICE: 09/29/2024 SUBJECTIVE: This 84-year-old gentleman, admitted with chest pain as well as acute ujg-YD-fraxhuc elevation myocardial infarction, also had episode of syncope. The patient had Pseudomonas sepsis. The patient still has rigors and chills today. Cardiac cath has been postponed. PAST MEDICAL HISTORY: Reviewed. REVIEW OF SYSTEMS: Fourteen-point review of systems negative except as mentioned earlier. CURRENT MEDICATIONS: Reviewed. PHYSICAL EXAMINATION: VITAL SIGNS: Pulse is 68, blood pressure is 91/60, and respirations 16. HEENT: Conjunctivae normal. NECK: No JVD. CARDIOVASCULAR: S1, S2. RESPIRATIONS: Breath sounds diminished at the bases. A few scattered rhonchi. ABDOMEN: Soft. No mass palpable. NERVOUS SYSTEM: Nonfocal. LABORATORY DATA: D-dimer is 0.78. Otherwise, rest of the labs are noted. ASSESSMENT: 1. Chest pain, possible acute inn-ZW-umcukzc elevation myocardial infarction with troponin 0.105 for cardiac catheterization. 2. Acute Pseudomonas sepsis of undetermined origin. 3. Elevated serum procalcitonin. 4. Elevated LFTs, possible acute hepatitis. 5. Hyponatremia. 6. Anemia. 7. Hypertension. 8. Hyperlipidemia. 9. History of abdominal aortic aneurysm. RECOMMENDATIONS: Recommended to continue current medications, continue symptomatic treatment. Also recommend CT angio of chest. Continue the broad-spectrum IV antibiotics. Follow closely Infectious Disease and Cardiology. Guarded prognosis because of multiple complex medical issues. Further recommendations to follow. The patient is on cefepime at this time. MMODL / IJN: [id number] /
[2024-09-30 03:03] LABS: Hepatitis A Antibody IgM Nonreactive (Nonreactive); Hepatitis B Core IgM Nonreactive (Nonreactive); Hepatitis B Surface Antigen Nonreactive (Nonreactive); Hepatitis C IgG Antibody Nonreactive (Nonreactive)
--- NOTE | 2024-09-30 08:15 | P.CNNES ---
History of Present Illness Consult date: 09/29/24 Requesting physician: Elias Villalobos Reason for Consult: slurred speech, nystagmus, weakness History of Present Illness: Patient is a 84-year-old right-handed male came to the hospital on 09/26/2024 for weakness, chest pain, near syncopal spell. Patient states that prior to coming to the hospital, he got up, started combing his hair, and started feeling wobbly and appeared as if the room going around. He apparently fell against the wall, producing bruise on the left side of the forehead. States he did not know where he was at. Patient was found to have elevated cardiac enzymes. He was started on heparin drip. 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 He went to the bathroom, sat down to pee, couldn't get up and has to pull the cord. He had hard time getting up. He did not fall. He was noted to have some slurred speech, nystagmus and was unable to stand up on own. He did not know where was at. The nursing staff got patient safely back into bed. Patient was shaking uncontrollably. Patient was complaining of being cold and left-sided jaw pain. He denies any previous history of falls. Patient says that he walks without any assistive device. He does walk carefully because of his history of bilateral knee replacement. Most recent blood test shows normal WBC hemoglobin 10.2, platelets are normal. Sodium 133 potassium 3.6, normal renal functions. AST is 43, ALT 77 elevated. CRP 25.8. ESR 71. UA is negative. CT chest showed no evidence for acute thoracic process. Moderate COPD changes. Calcification of the aorta. Small hiatal hernia and cholelithiasis. Mild splenomegaly. CT of abdomen pelvis showed no acute process. 2D echo revealed normal LV size and systolic function. Mitral annular calcification and aortic valve sclerosis without significant restriction. There is mild to moderate aortic regurgitation. No obvious regional wall motion abnormalities. Blood cultures have grown Pseudomonas aeruginosa. Urine cultures are negative. Patient has borderline diabetes, hypertension. Patient has smoked 1 pack per day for 20 years, quit in 1974. He used to drink in the past. No history of stroke. Patient has history of bilateral carotid stents performed 2 years ago, one month apart. Per nursing report, cardiac catheterization has not been able to perform because of concern about sepsis, bacteremia. ID on board, no obvious etiology has been identified. Review of Systems All pertinent positive and negative review of systems mentioned in the HPI. Ot herwise unremarkable. Past Medical History Past Medical History: Coronary Artery Disease (CAD), Hyperlipidemia, Hypertension, Thyroid Disorder Additional Past Medical History / Comment(s): cardiac stents, AAA (states Dr is watching), hx kidney stones, hx of colon polyps History of Any Multi-Drug Resistant Organisms: None Reported Past Surgical History: Heart Catheterization With Stent, Tonsillectomy Additional Past Surgical History / Comment(s): 6 stents, charity cataracts Past Anesthesia/Blood Transfusion Reactions: No Reported Reaction Date of Last Stent Placement:: unknown Past Psychological History: No Psychological Hx Reported Smoking Status: Former smoker Past Alcohol Use History: None Reported Past Drug Use History: None Reported - Past Family History Mother Family Medical History: No Reported History Medications and Allergies Home Medications Medication Instructions Recorded Confirmed Type Aspirin EC [Ecotrin Low Dose] 81 mg PO DAILY@0910/30/16 09/26/24 History Isosorbide Mononitrate ER [Imdur] 60 mg PO DAILY@0910/30/16 09/26/24 History Metoprolol Succinate (ER) [Toprol 50 mg PO DAILY@89910/30/16 09/26/24 History XL] Nitroglycerin Sl Tabs [Nitrostat] 0.4 mg SL Q5M PRN 10/30/16 09/26/24 History Omeprazole 20 mg PO HS@1800 10/30/16 09/26/24 History Levothyroxine Sodium [Synthroid] 50 mcg PO DAILY@0901/13/18 09/26/24 History Fish Oil 600mg 600 mg PO DAILY@0900 10/19/20 09/26/24 History Niacin (Inositol Niacinate) 500 mg PO HS@1800 10/19/20 09/26/24 History [Niacin 500 mg Capsule] Apixaban [Eliquis] 5 mg PO BID@0900,1800 09/26/24 09/26/24 History Atorvastatin [Lipitor] 40 mg PO DAILY@0909/26/24 09/26/24 History Calcium Carbonate/Vitamin D3 1 tab PO DAILY@89909/26/24 09/26/24 History [Calcium 600 mg-D3 20 mcg (800 unit)] Dulaglutide [Trulicity] 0.75 mg SQ TH@0900 09/26/24 09/26/24 History metFORMIN HCL 1,000 mg PO BID-W/MEALS 09/26/24 09/26/24 History Allergies Allergy/AdvReac Type Severity Reaction Status Date / Time No Known Allergies Allergy Verified 09/26/24 19:24 Physical Examination - Vital Signs Vital Signs: Vital Signs Temp Pulse Resp BP Pulse Ox 09/29/24 15:57 63 22 09/29/24 14:03 97.4 F L 63 22 96/60 97 09/29/24 11:53 97.6 F 68 16 91/60 97 09/29/24 08:20 80 09/29/24 07:49 100.3 F H 80 18 107/69 09/29/24 07:00 100.3 F H 09/29/24 04:30 98.6 F 87 37 H 181/106 99 09/29/24 01:47 98.2 F 95 18 160/72 96 09/28/24 20:00 97.8 F 82 18 122/60 96 09/28/24 17:43 100.5 F H 100 27 H 149/66 97 Intake and Output 09/29/24 09/29/24 09/29/24 06:59 14:59 22:59 Intake Total 240 Balance 240 Intake: Oral 240 Other: Voiding Method Toilet Urinal Urinal # Voids 3 Patient is an elderly male, very pleasant, in no acute distress. Patient is alert awake oriented to time place and person. He knows it is 09/29/2024 and that he is in [facility] in [facility]. Speech and language functions are normal. Patient can name and repeat very well. No aphasia or dysarthria. Attention, concentration and fund of knowledge is janet quate. On cranial nerve examination, pupils are equal, round and reacting to light, visual wright are full on confrontation, with no neglect on double simultaneous stimulation. Extraocular muscles are intact with no nystagmus. Face is symmetric, tongue protrudes to the midline. Palatal elevation and sensation normal, hearing is mild to moderately decreased and shoulder shrug normal, facial sensation normal. On muscle strength testing, there is right-sided pronation, but no drift. The muscle strength is normal in arms and legs distally and proximally. He has evidence of bilateral knee repair. Deep tendon reflexes are symmetric (right/left) Sensory to touch is equal with no neglect on double simultaneous stimulation. Cerebellar function showed no ataxia for [id number]-kp-[id number] testing. No dysdiadochokinesia. No ataxia for ordg-bg-lluf testing on either side. Tone and bulk of muscles normal. Gait deferred.. On general examination, there is no carotid bruit or murmur, S1-S2 audible. Chest is clear on consultation. Abdomen is soft nontender. No organomegaly, bowel sounds present. Peripheral pulses are present. No peripheral edema. Results - Laboratory Findings CBC and BMP: 09/29/24 08:08 09/29/24 08:08 Abnormal Lab Findings: Abnormal Labs 09/26/24 09/26/24 09/26/24 18:49 20:01 20:01 RBC 3.94 L Hgb 11.7 L Hct 34.4 L Immature Gran # Lymphocytes # ESR PT INR APTT D-Dimer 0.90 H Sodium Carbon Dioxide BUN Creatinine Glucose POC Glucose (mg/dL) 146 H Calcium Magnesium AST ALT Alkaline Phosphatase Troponin I C-Reactive Protein Total Protein Albumin Procalcitonin Urine Protein Urine Bilirubin Hyaline Casts Urine Mucus 09/26/24 09/27/24 09/27/24 20:01 00:01 00:30 RBC 3.75 L Hgb 11.0 L Hct 33.2 L Immature Gran # Lymphocytes # 0.9 L ESR PT INR APTT D-Dimer Sodium 130 L Carbon Dioxide 18 L BUN 28 H Creatinine Glucose 145 H POC Glucose (mg/dL) Calcium Magnesium 1.2 L AST 133 H ALT 108 H Alkaline Phosphatase 135 H Troponin I 0.109 H* C-Reactive Protein Total Protein Albumin 3.4 L Procalcitonin Urine Protein Urine Bilirubin Hyaline Casts Urine Mucus 09/27/24 09/27/24 09/27/24 06:05 06:05 06:05 RBC 3.61 L Hgb 10.8 L Hct 31.5 L Immature Gran # Lymphocytes # 0.83 L ESR PT INR APTT 37.3 H D-Dimer Sodium 131 L Carbon Dioxide 21 L BUN Creatinine 0.59 L Glucose 143 H POC Glucose (mg/dL) Calcium 8.2 L Magnesium 1.4 L AST 111 H ALT 111 H Alkaline Phosphatase 128 H Troponin I C-Reactive Protein Total Protein Albumin 3.0 L Procalcitonin Urine Protein Urine Bilirubin Hyaline Casts Urine Mucus 09/27/24 09/27/24 09/27/24 06:05 13:29 15:19 RBC Hgb Hct Immature Gran # Lymphocytes # ESR PT INR APTT 43.0 H D-Dimer Sodium Carbon Dioxide BUN Creatinine Glucose POC Glucose (mg/dL) Calcium Magnesium AST ALT Alkaline Phosphatase Troponin I 0.105 H* C-Reactive Protein Total Protein Albumin Procalcitonin Urine Protein 1+ H Urine Bilirubin 1+ H Hyaline Casts 40 H Urine Mucus Few H 09/28/24 09/28/24 09/28/24 04:01 04:01 04:01 RBC 3.68 L Hgb 10.9 L Hct 32.8 L Immature Gran # 0.06 H Lymphocytes # 0.66 L ESR PT 13.0 H INR 1.15 H APTT D-Dimer Sodium Carbon Dioxide BUN Creatinine Glucose POC Glucose (mg/dL) Calcium Magnesium AST ALT Alkaline Phosphatase Troponin I C-Reactive Protein Total Protein Albumin Procalcitonin 14.60 H Urine Protein Urine Bilirubin Hyaline Casts Urine Mucus 09/28/24 09/28/24 09/28/24 09:06 10:20 14:32 RBC 3.35 L Hgb 10.2 L Hct 29.5 L Immature Gran # Lymphocytes # ESR 71 H PT INR APTT 40.3 H D-Dimer Sodium Carbon Dioxide BUN Creatinine Glucose POC Glucose (mg/dL) Calcium Magnesium AST ALT Alkaline Phosphatase Troponin I C-Reactive Protein Total Protein Albumin Procalcitonin Urine Protein Urine Bilirubin Hyaline Casts Urine Mucus 09/28/24 09/29/24 09/29/24 14:32 04:39 06:07 RBC Hgb Hct Immature Gran # Lymphocytes # ESR PT INR APTT 43.4 H D-Dimer Sodium Carbon Dioxide BUN Creatinine Glucose POC Glucose (mg/dL) 156 H Calcium Magnesium AST ALT Alkaline Phosphatase Troponin I C-Reactive Protein 25.8 H Total Protein Albumin Procalcitonin Urine Protein Urine Bilirubin Hyaline Casts Urine Mucus 09/29/24 09/29/24 09/29/24 08:08 08:08 13:21 RBC 3.51 L Hgb 10.2 L Hct 30.9 L Immature Gran # Lymphocytes # 0.4 L ESR PT INR APTT D-Dimer 0.78 H Sodium 133 L Carbon Dioxide 21 L BUN 8 L Creatinine 0.59 L Glucose 163 H POC Glucose (mg/dL) Calcium 7.7 L Magnesium AST ALT 77 H Alkaline Phosphatase 160 H Troponin I C-Reactive Protein Total Protein 5.8 L Albumin 2.6 L Procalcitonin Urine Protein Urine Bilirubin Hyaline Casts Urine Mucus Assessment and Plan Assessment: * Near syncopal spells 2. Once happened prior to arrival to the hospital, and the second one occurred in the hospital. He had some chills, slurred speech associated with the near syncopal spell in the hospital. Probable vasovagal, rule out orthostatic hypotension. Reasons multifactorial as mentioned below. * Elevated cardiac enzymes, cardiology on board. * Elevated liver enzymes * Hyponatremia * Bacteremia with pseudomonas aeruginosa * Possible pneumonia/SIRS * History of bilateral cardiac stents. * Coronary artery disease, history of 6 cardiac stents * Atrial fibrillation, on Eliquis * Diabetes * Hypertension * Hyperlipidemia * Hypothyroidism * X tobacco use Plan: * Patient will undergo syncopal workup. * Carotid Doppler to rule out stenosis * Check orthostatics * Continue Eliquis for atrial fibrillation. Patient also on aspirin 81 mg d aily. * Check B12, folate, TSH, hemoglobin A1c * Lipid panel 06/21/2024 with cholesterol 102, LDL 43, HDL 37 triglycerides 109. Continue Lipitor 40 minute daily (home dose) * Cardiology on board for elevated cardiac enzymes. Patient not able to undergo cardiac catheterization, because of other medical conditions * Patient on cefepime for bacteremia. ID on board. * Neurology will follow. Thank you for the consult.
--- NOTE | 2024-09-30 15:45 | P.PN ---
Subjective Progress Note Date: 09/30/24 Principal diagnosis: Reason for follow-up is here with possible pneumonia Patient is 84-year-old male past medical history difficult for hypertension hyperlipidemia hypothyroidism coronary artery disease presenting to the hospital after the patient felt dizzy and fall onto the wall patient did have a fever prompting this consultation. On today's evaluation that is 09/30/2024, patient did not have any fever and denies any chills, patient is breathing comfortably on room air, patient with no chest pain or cough patient did not have any abdominal pain nausea vomiting or any loose stools. Patient did have a CBC done today blood culture repeat currently pending Objective - Vital Signs Vital signs: Vital Signs Temp 97.7 F 09/30/24 07:20 Pulse 77 09/30/24 07:20 Resp 16 09/30/24 07:20 BP 131/71 09/30/24 07:20 Pulse Ox 97 09/30/24 07:20 FiO2 Intake & Output 09/29/24 09/30/24 09/30/24 18:59 06:59 18:59 Intake Total 240 360 Output Total 375 625 Balance -135 -625 360 Intake: Oral 240 360 Output: Urine 375 250 Post Void Residual 375 Other: Voiding Method Urinal Toilet Urinal # Voids 1 - Exam GENERAL DESCRIPTION: An elderly male lying in bed in no distress RESPIRATORY SYSTEM: Unlabored breathing , decreased breath sounds at bases HEART: S1 S2 regular rate and rhythm , ABDOMEN: Soft , no tenderness EXTREMITIES: No edema feet - Labs CBC & Chem 7: 09/29/24 08:08 09/29/24 08:08 Labs: Abnormal Lab Results - Last 24 Hours (Table) 09/29/24 09/29/24 Range/Units 13:21 18:58 D-Dimer 0.78 H (<0.60) mg/L FEU Ur Specific [place] >1.050 H (1.001-1.035) Urine Protein 1+ H (Negative) Urine Ketones Trace H (Negative) Urine Mucus Rare H (None) /hpf Microbiology - Last 24 Hours (Table) 09/27/24 15:19 Blood Culture Gram Stain - Final Blood Blood Culture - Final Pseudomonas aeruginosa Molecular ID Assessment and Plan (1) SIRS (systemic inflammatory response syndrome) Current Visit: Yes Status: Acute Code(s): R65.10 - SIRS OF NON-INFECTIOUS ORIGIN W/O ACUTE ORGAN DYSFUNCTION SNOMED Code(s): 859726685 (2) Pneumonia Current Visit: Yes Status: Acute Code(s): J18.9 - PNEUMONIA, UNSPECIFIED ORGANISM SNOMED Code(s): 433492035 (3) Bacteremia due to Pseudomonas Current Visit: Yes Status: Acute Code(s): R78.81 - BACTEREMIA; B96.5 - PSEUDOMONAS (MALLEI) CAUSING DISEASES CLASSD ELSWHR SNOMED Code(s): 6049597931 Plan: 1patient did have features of SIRS in this patient with a fever and tachycardia however he did have normal white count and did have predominantly respiratory symptoms however the chest x-ray did not show any consolidation with a question of possible viral etiology 2-patient did have a negative COVID RSV and influenza PCR CT abdominal pelvis came back negative as well 3-patient did have elevated procalcitonin with respiratory symptom and blood culture with Pseudomonas source there was a question of pneumonia however CT of the chest did not show any significant consolidation CT abdominal pelvis also did not show any source for this bacteremia if he has persistent bacteremia will need to rule out endovascular source for now continue with cefepime Dictation was produced using [employer] software. please excuse any grammatical, word or spelling errors. Time with Patient: Less than 30
--- NOTE | 2024-09-30 17:39 | PN ---
PROGRESS NOTE DATE OF SERVICE: 09/30/2024 SUBJECTIVE: This is an 84-year-old gentleman, who was slated to have cardiac catheterization, had Pseudomonas sepsis. No chest pain. No palpitation. PHYSICAL EXAMINATION: VITAL SIGNS: Pulse 77, blood pressure 130/37, respirations 16. CHEST: Clear to auscultation. CARDIOVASCULAR: S1, S2. ABDOMEN: Soft. NERVOUS SYSTEM: Nonfocal. LABORATORY DATA: Reviewed. ASSESSMENT: 1. Chest pain, possible acute dao-BZ-wctbpfu-elevation myocardial infarction for cardiac catheterization. 2. Pseudomonas sepsis. 3. History of syncope. 4. Multiple complex medical issues reviewed. Please refer to previous chart. RECOMMENDATIONS: Recommend to continue current medications and symptomatic treatment. Repeat labs. Continue with cefepime. Follow closely. Further recommendations to follow. MMODL / IJN: [id number] /
[2024-10-01 09:19] LABS: Basophils # (A) 0.04 X 10*3/uL (0.00-0.10); Basophils % (A) 0.6 %; Eosinophils # (A) 0.17 X 10*3/uL (0.04-0.35); Eosinophils % (A) 2.8 %; HCT 29.7 % (39.6-50.0); HGB 9.7 g/dL (13.0-17.0); Lymphocytes # (A) 0.94 X 10*3/uL (0.90-5.00); Lymphocytes % (A) 15.3 %; MCHC 32.7 g/dL (32.0-37.0); MCV 88.9 FL (80.0-97.0); Mean Platelet Volume 10.7 FL (9.5-12.2); Monocytes # (A) 0.47 X 10*3/uL (0.20-1.00); Monocytes % (A) 7.6 %; NRBC Per 100 WBC 0 X 10*3/uL (0.00-0.01); Neutrophils # (A) 4.51 X 10*3/uL (1.80-7.70); Neutrophils % (A) 73.2 %; Platelet Count 214 X 10*3/uL (140-440); RBC 3.34 X 10*6/uL (4.40-5.60); RDW 14.3 % (11.5-14.5); WBC 6.16 X 10*3/uL (4.50-10.00)
--- NOTE | 2024-10-01 09:39 | P.PN ---
Subjective Progress Note Date: 09/30/24 Patient was seen for follow-up. Patient's daughter was also present by the bedside. Patient is doing well. Offers no new complaints. Denies any headache or dizziness. Patient is laying in the bed. Objective - Vital Signs Vital signs: Vital Signs Temp 99.4 F 10/01/24 07:25 Pulse 67 10/01/24 07:25 Resp 16 10/01/24 07:25 BP 152/81 10/01/24 07:25 Pulse Ox 97 10/01/24 07:25 FiO2 Intake & Output 09/30/24 10/01/24 10/01/24 18:59 06:59 18:59 Intake Total 600 Balance 600 Intake: Oral 600 Other: # Voids 2 3 - Exam Mental status, speech and language functions are normal. Muscle strength normal. No ataxia. - Labs CBC & Chem 7: 10/01/24 05:08 09/29/24 08:08 Labs: Abnormal Lab Results - Last 24 Hours (Table) 09/30/24 10/01/24 Range/Units 09:22 05:08 RBC 3.34 L (4.40-5.60) X 10*6/uL Hgb 9.7 L (13.0-17.0) g/dL Hct 29.7 L (39.6-50.0) % Hemoglobin A1c 6.3 H (<=6.0) % Microbiology - Last 24 Hours (Table) 09/29/24 13:21 Blood Culture - Preliminary Blood 09/27/24 15:19 Blood Culture Gram Stain - Final Blood Blood Culture - Final Pseudomonas aeruginosa Molecular ID Assessment and Plan Assessment: * Near syncopal spells 2. Once happened prior to arrival to the hospital, and the second one occurred in the hospital. He had some chills, slurred speech associated with the near syncopal spell in the hospital. Probable vasovagal, versus due to orthostatic hypotension. Reasons multifactorial as mentioned below. * Elevated cardiac enzymes, cardiology on board. * Elevated liver enzymes * Hyponatremia * Bacteremia with pseudomonas aeruginosa * Possible pneumonia/SIRS * History of bilateral cardiac stents. * Coronary artery disease, history of 6 cardiac stents * Atrial fibrillation, on Eliquis * Diabetes * Hypertension * Hyperlipidemia * Hypothyroidism * X tobacco use Plan: * Patient has undergone syncopal workup. * Carotid Doppler revealed bilateral carotid stents without elevated velocities to suggest hemodynamically significant stenosis of the ICAs. Plaque is seen within the bilateral CCAs extending into the ICA and ECA. Antegrade flow in both vertebral arteries. * Orthostatics checked was positive. Supine blood pressure 152/85, sitting 138/76 and standing 119/79. Pulse rate was 82, 83 and 82 respectively. No postural tachycardic response either. * Recommend hydration. Treatment of underlying medical conditions. Cardiology on board. * Continue Eliquis for atrial fibrillation. Patient also on aspirin 81 mg daily. * B12 683, folate 10.10, TSH 1.62 and A1c 6.3. All are normal. * Lipid panel 06/21/2024 with cholesterol 102, LDL 43, HDL 37 triglycerides 109. Continue Lipitor 40 minute daily (home dose) * Cardiology on board for elevated cardiac enzymes. Patient not able to undergo cardiac catheterization, because of other medical conditions * Patient on cefepime for bacteremia. ID on board. * No other neurological workup indicated. Dr. Jean starting neurology service for morning. Neurology will sign off. Please reconsult neurology if any concerns.
[2024-10-01 09:41] LABS: BUN/Creat Ratio 13.83 Ratio (12.00-20.00); Blood Urea Nitrogen 8.3 mg/dL (9.0-27.0); Calcium 7.6 mg/dL (8.7-10.3); Carbon Dioxide 18.6 mmol/L (21.6-31.8); Chloride 104 mmol/L (96-109); Glucose 127 mg/dL (70-110); Sodium 134 mmol/L (135-145)
--- NOTE | 2024-10-01 16:44 | P.PN ---
Subjective Progress Note Date: 10/01/24 Principal diagnosis: Reason for follow-up is here with possible pneumonia Patient is 84-year-old male past medical history difficult for hypertension hyperlipidemia hypothyroidism coronary artery disease presenting to the hospital after the patient felt dizzy and fall onto the wall patient did have a fever prompting this consultation. On today's evaluation that is 10/01/2024, Patient is afebrile patient is currently on room air and denies having any shortness of breath, the patient denies any chest pain or cough, the patient denies any nausea vomiting did not have any abdominal pain and no diarrhea. Patient white count 6.16 creatinine 0.6 blood culture repeat has been negative so far Objective - Vital Signs Vital signs: Vital Signs Temp 99.4 F 10/01/24 07:25 Pulse 67 10/01/24 07:25 Resp 16 10/01/24 07:25 BP 152/81 10/01/24 07:25 Pulse Ox 97 10/01/24 07:25 FiO2 Intake & Output 09/30/24 10/01/24 10/01/24 18:59 06:59 18:59 Intake Total 600 Balance 600 Intake: Oral 600 Other: # Voids 2 3 - Exam GENERAL DESCRIPTION: An elderly male lying in bed in no distress RESPIRATORY SYSTEM: Unlabored breathing , decreased breath sounds at bases HEART: S1 S2 regular rate and rhythm , ABDOMEN: Soft , no tenderness EXTREMITIES: No edema feet - Labs CBC & Chem 7: 10/01/24 05:08 10/01/24 05:08 Labs: Abnormal Lab Results - Last 24 Hours (Table) 09/30/24 10/01/24 10/01/24 Range/Units 09:22 05:08 05:08 RBC 3.34 L (4.40-5.60) X 10*6/uL Hgb 9.7 L (13.0-17.0) g/dL Hct 29.7 L (39.6-50.0) % Sodium 134 L (135-145) mmol/L Carbon Dioxide 18.6 L (21.6-31.8) mmol/L BUN 8.3 L (9.0-27.0) mg/dL Glucose 127 H (70-110) mg/dL Hemoglobin A1c 6.3 H (<=6.0) % Calcium 7.6 L (8.7-10.3) mg/dL Microbiology - Last 24 Hours (Table) 09/29/24 13:21 Blood Culture - Preliminary Blood 09/27/24 15:19 Blood Culture Gram Stain - Final Blood Blood Culture - Final Pseudomonas aeruginosa Molecular ID Assessment and Plan (1) SIRS (systemic inflammatory response syndrome) Current Visit: Yes Status: Acute Code(s): R65.10 - SIRS OF NON-INFECTIOUS ORIGIN W/O ACUTE ORGAN DYSFUNCTION SNOMED Code(s): 533726123 (2) Pneumonia Current Visit: Yes Status: Acute Code(s): J18.9 - PNEUMONIA, UNSPECIFIED ORG ANISM SNOMED Code(s): 691171131 (3) Bacteremia due to Pseudomonas Current Visit: Yes Status: Acute Code(s): R78.81 - BACTEREMIA; B96.5 - PSEUDOMONAS (MALLEI) CAUSING DISEASES CLASSD [facility] SNOMED Code(s): 5594719277 Plan: 1patient did have features of SIRS in this patient with a fever and tachycardia however he did have normal white count and did have predominantly respiratory symptoms however the chest x-ray did not show any consolidation with a question of possible viral etiology 2-patient did have a negative COVID RSV and influenza PCR CT abdominal pelvis came back negative as well 3-patient did have elevated procalcitonin with respiratory symptom and blood culture with Pseudomonas source there was a question of pneumonia however CT of the chest did not show any significant consolidation CT abdominal pelvis also did not show any source for this bacteremia, patient benefit from KATHY to patient evidence of any endovascular source continue with the cefepime Daughter at the bedside question answered Dictation was produced using [employer] dictation software. please excuse any grammatical, word or spelling errors. Time with Patient: Less than 30
--- NOTE | 2024-10-02 01:27 | PN ---
PROGRESS NOTE DATE OF SERVICE: 10/01/2024 SUBJECTIVE: This is an 84-year-old gentleman admitted with acute [id number] elevation myocardial infarction, also had Pseudomonas sepsis with shaking chills. Most recent cultures are negative. OBJECTIVE: VITAL SIGNS: Pulse is 67, blood pressure 152/81. CHEST: A few scattered rhonchi. ABDOMEN: Soft. NERVOUS SYSTEM: Nonfocal. LABORATORY DATA: Reviewed. ASSESSMENT: 1. Acute non ST-segment elevation myocardial infarction for cardiac catheterization. 2. Possible sepsis with Pseudomonas. 3. History of syncope. 4. Multiple complex medical issues. Review the previous chart. RECOMMENDATIONS: Recommend to continue current medications, continue symptomatic treatment. Otherwise, once ID is cleared, the patient will require cardiac catheterization. Prognosis guarded. MMODL / IJN: [id number] /
[2024-10-02] MEDS ORDERED: fentaNYL (PF) 50 MCG/ML 5 ML AMP IVP PRN (08:00)
[2024-10-02] MEDS ORDERED: MIDAZOLAM 2 MG/2 ML VIAL IV PRN (08:00)
[2024-10-02] MEDS ORDERED: BENZOCAINE SPRAY 1 EACH MM PRN (08:04)
--- NOTE | 2024-10-02 09:36 | P.PN ---
Subjective HISTORY OF PRESENT ILLNESS: This is an 84-year-old male patient of Dr. Eric Reed with past medical history of coronary artery disease with 6 stents per patient in the past done at [facility] around 2003, carotid artery disease status post carotid stents at [facility] 2 years ago, hypertension, dyslipidemia, diabetes, persistent atrial fibrillation on Eliquis. We have been asked to evaluate the patient for chest pain. Patient states that on Wednesday he was sweating to the point that his T-shirt was all wet and had a staggering gait. He states he ended up falling into the wall, feeling dizzy and felt disoriented. He sat down to read the Bible and was trembling for about 1 hour. Then yesterday he had an eye doctor's appointment with Dr. Zamudio. He went home and developed pressure in his chest like someone was sitting on his chest. He checked his heart rate was 108 and his blood pressure was low. He called his daughter who picked him up and brought him into the emergency center. His last Eliquis intake was on 09/26 in the morning. Patient has been started on a heparin drip. Discussed recommendations for cardiac catheterization and he is agreeable to move forward with this and will be scheduled tomorrow. Patient also gives history that his on 08/17. Blood pressure 129/71, heart rate 81, pulse ox 96% on room air. Patient is currently chest pain-free. -EKG: Atrial fibrillation at 108 bpm -Chest x-ray: Cardiomegaly with prominence of the interstitial markings which were could reflect mild pulmonary vascular congestion. -CT of the head and neck: No acute intracranial process. No acute fracture or traumatic subluxation of the cervical spine. -Laboratory studies: WBC 6.6, hemoglobin 10.8. Sodium 131, potassium 3.6, creatinine 0.59. Troponin 0.015, 0.109 and 0.105. AST 111, ALT 111, alkaline phosphatase 128. -Home cardiac medications: Eliquis 5 mg twice daily, aspirin 81 mg daily, a torvastatin 40 mg daily, isosorbide 60 mg daily, metoprolol succinate 50 mg daily, Nitrostat as needed, also on levothyroxine. -Echocardiogram performed on 05/25/2024 in the office revealed EF 55%, moderate left ventricular hypertrophy, moderate aortic regurgitation, mild mitral regurgitation, moderate tricuspid regurgitation, PASP 53 mmHg. -Lexiscan Cardiolite stress test performed in the office on 05/19/2021 revealed normal study. 09/28 Yesterday, patient developed fever in the afternoon and cardiac catheterization scheduled for today has been postponed. Patient updated regarding this. He r emains on a heparin drip which we will continue for full 48 hours. Catheterization may be rescheduled on Wednesday. Due to the fever, consult was added for ID and patient is scheduled for CT of the abdomen pelvis today. Blood cultures and urine cultures have been obtained. Blood pressure 129/68, heart rate 81, pulse ox 98% on room air. Repeat blood work reveals normal WBC at 7.8, hemoglobin 10.2. Echocardiogram results reviewed with the patient. Echocardiogram revealed EF of 55 to 60%, mitral annular calcification and aortic valve sclerosis without significant restriction. Mild to moderate aortic regurgitation and tricuspid regurgitation, minimal mitral regurgitation. No pericardial effusion. No pulmonary hypertension. 09/28 Overnight, patient continued to have fevers and also had episode this morning at 5 AM with slurred speech, nystagmus and lower extremity weakness. Consult was added for neurology and he underwent a stat CT of the brain which was negative for acute findings. He also had a chest x-ray that showed chronic lung markings versus bilateral lower lobe pneumonia. Blood culture is positive for Pseudomonas. ID is following. Patient was scheduled for cardiac ca theterization today which will be canceled and postponed until patient's febrile illness has been resolved. Plan is for medical management only. Echocardiogram revealed normal LV size and function, mild to moderate aortic regurgitation tricuspid regurgitation, minimal mitral regurgitation. 10/02/2024 Cardiology was reconsulted for KATHY by infectious disease. Patient's blood cultures on admission were positive for Pseudomonas [place]. However blood cultures from 09/29 and 09/30 are both negative at this time. Patient currently denies any chest pain or pressure. He denies shortness of breath. PHYSICAL EXAM: VITAL SIGNS: Reviewed. GENERAL: Well-developed in no acute distress. NECK: Supple. No JVD or thyromegaly LUNGS: Respirations even and unlabored. Lungs essentially clear to auscultation bilaterally. HEART: Irregular rate and rhythm. S1 and S2 heard. EXTREMITIES: Normal range of motion. No clubbing or cyanosis. Peripheral pulses intact. No lower extremity edema ASSESSMENT: Febrile illness Pseudomonas bacteremia Possible TIA NSTEMI Coronary artery disease with previous PCI at [facility] prior to 2003 Carotid artery disease status post carotid stents at [facility] 2 years ago Hypertension Dyslipidemia Diabetes Persistent atrial fibrillation on Eliquis at home PLAN: Continue current cardiac medications including Eliquis, aspirin, Lipitor, Imdur, metoprolol N.p.o. Patient to undergo KATHY today with Dr. Reed Further recommendations pending patient course Nurse practitioner note has been reviewed by physician. Signing provider agrees with the documented findings, assessment, and plan of care documented by DECK [employer]ER as a scribe. Objective - Vital Signs Vital signs: Vital Signs Temp 97.4 F L 10/02/24 07:00 Pulse 76 10/02/24 07:00 Resp 16 10/02/24 07:00 BP 150/73 10/02/24 07:00 Pulse Ox 95 10/02/24 07:00 FiO2 Intake & Output 10/01/24 10/02/24 10/02/24 18:59 06:59 18:59 Intake Total 240 Output Total 1450 Balance 240 -1450 Intake: Oral 240 Output: Urine 1450 Other: # Voids 2 # Bowel Movements 2 - Labs CBC & Chem 7: 10/01/24 05:08 10/01/24 05:08 Labs: Abnormal Lab Results - Last 24 Hours (Table) 10/01/24 Range/Units 05:08 Sodium 134 L (135-145) mmol/L Carbon Dioxide 18.6 L (21.6-31.8) mmol/L BUN 8.3 L (9.0-27.0) mg/dL Glucose 127 H (70-110) mg/dL Calcium 7.6 L (8.7-10.3) mg/dL Microbiology - Last 24 Hours (Table) 09/29/24 13:21 Blood Culture - Preliminary Blood 09/30/24 05:03 Blood Culture - Preliminary Blood
[2024-10-02] MEDS: BENZOCAINE SPRAY 1 EACH MUCOUS MEM ONE ×2 (11:00→11:05)
[2024-10-02] MEDS: MIDAZOLAM 2 MG/2 ML VIAL IVP ONE ×2 (11:08)
[2024-10-02] MEDS: fentaNYL (PF) 50 MCG/1 ML VIAL IVP ONE (11:08)
[2024-10-02] MEDS: IV FLUID CONTINUATION 1,000 ML IV ONE (11:10)
--- NOTE | 2024-10-02 12:24 | ECHOT ---
TRANSESOPHAGEAL ECHOCARDIOGRAM INDICATION: Bacteremia, rule out infective endocarditis. PROCEDURE NOTE: After obtaining informed consent, transesophageal echocardiogram was performed in left lateral position using an Omniplane probe. Local and IV sedation were obtained using Xylocaine spray, 2 mg of Versed, and 50 mcg of fentanyl. The patient tolerated the procedure well without any obvious immediate complications. Total sedation time was 10 minutes. FINDINGS: 1. There is no evidence of a vegetation over the aortic valve, mitral valve, or tricuspid valve. 2. Aortic valve shows calcification with mild aortic regurgitation. Mitral valve shows thickened mitral leaflets with mild central mitral regurgitation. There is moderate tricuspid regurgitation noted. There is no evidence of [id number] shunt by color-flow Doppler or [id number]-zj-[id number] shunt by agitated saline contrast study. There is biatrial enlargement. 3. Right ventricle appears mildly enlarged. 4. Left ventricle has normal size and systolic function. CONCLUSIONS: 1. No evidence of vegetation on this study. 2. Mild mitral aortic and moderate tricuspid regurgitation noted. MMODL / IJN: [id number] /
--- NOTE | 2024-10-02 16:47 | P.PN ---
Subjective Progress Note Date: 10/02/24 Principal diagnosis: Reason for follow-up is here with possible pneumonia Patient is 84-year-old male past medical history difficult for hypertension hyperlipidemia hypothyroidism coronary artery disease presenting to the hospital after the patient felt dizzy and fall onto the wall patient did have a fever prompting this consultation. On today's evaluation that is 10/02/2024, patient has been afebrile, patient is breathing comfortably and is currently on room air, patient denies having any significant cough no chest pain, patient denies nausea vomiting or diarrhea and no abdominal pain. Patient white count 6.16, creatinine 0.6 blood culture repeat has been negative Objective - Vital Signs Vital signs: Vital Signs Temp 97.4 F L 10/02/24 07:00 Pulse 73 10/02/24 11:17 Resp 16 10/02/24 11:17 BP 163/77 10/02/24 11:17 Pulse Ox 96 10/02/24 11:17 FiO2 Intake & Output 10/01/24 10/02/24 10/02/24 18:59 06:59 18:59 Intake Total 240 50 Output Total 1450 Balance 240 -1450 50 Intake: IV 50 Oral 240 Output: Urine 1450 Other: Voiding Method Urinal # Voids 2 # Bowel Movements 2 - Exam GENERAL DESCRIPTION: An elderly male lying in bed in no distress RESPIRATORY SYSTEM: Unlabored breathing , decreased breath sounds at bases HEART: S1 S2 regular rate and rhythm , ABDOMEN: Soft , no tenderness EXTREMITIES: No edema feet - Labs CBC & Chem 7: 10/01/24 05:08 10/01/24 05:08 Labs: Microbiology - Last 24 Hours (Table) 09/29/24 13:21 Blood Culture - Preliminary Blood 09/30/24 05:03 Blood Culture - Preliminary Blood Assessment and Plan (1) SIRS (systemic inflammatory response syndrome) Current Visit: Yes Status: Acute Code(s): R65.10 - SIRS OF NON-INFECTIOUS ORIGIN W/O ACUTE ORGAN DYSFUNCTION SNOMED Code(s): 318498405 (2) Pneumonia Current Visit: Yes Status: Acute Code(s): J18.9 - PNEUMONIA, UNSPECIFIED ORGANISM SNOMED Code(s): 688240336 (3) Bacteremia due to Pseudomonas Current Visit: Yes Status: Acute Code(s): R78.81 - BACTEREMIA; B96.5 - PSEUDOMONAS (MALLEI) CAUSING DISEASES CLASSD [facility] SNOMED Code(s): 5350855108 Plan: 1patient did have features of SIRS in this patient with a fever and tachycardia however he did have normal white count and did have predominantly respiratory symptoms however the chest x-ray did not show any consolidation with a question of possible viral etiology 2-patient did have a negative COVID RSV and influenza PCR CT abdominal pelvis came back negative as well 3-patient did have elevated procalcitonin with respiratory symptom and blood culture with Pseudomonas source there was a question of pneumonia however CT of the chest did not show any significant consolidation CT abdominal pelvis also did not show any source for this bacteremia, patient did have rom KATHY that was negative for any vegetation 4we will continue patient on cefepime while inpatient however will be able to finish therapy with oral Cipro as no evidence of any deep source this was explained to the daughter at the bedside Dictation was produced using [employer] dictation software. please excuse any grammatical, word or spelling errors. Time with Patient: Less than 30
[2024-10-03 00:55] VITALS: RESP 18
[2024-10-03 08:05] VITALS: BP 127/75; PULSE 74; TEMP 97.9
[2024-10-03 08:21] LABS: Basophils # (A) 0.04 X 10*3/uL (0.00-0.10); Basophils % (A) 0.6 %; Eosinophils # (A) 0.16 X 10*3/uL (0.04-0.35); Eosinophils % (A) 2.2 %; HCT 33.9 % (39.6-50.0); Lymphocytes # (A) 0.47 X 10*3/uL (0.90-5.00); Lymphocytes % (A) 6.5 %; MCH 29.4 pg (27.0-32.0); MCHC 32.4 g/dL (32.0-37.0); MCV 90.6 FL (80.0-97.0); Mean Platelet Volume 10.3 FL (9.5-12.2); Monocytes # (A) 0.33 X 10*3/uL (0.20-1.00); Monocytes % (A) 4.6 %; NRBC Per 100 WBC 0 X 10*3/uL (0.00-0.01); Neutrophils # (A) 6.15 X 10*3/uL (1.80-7.70); Neutrophils % (A) 85.1 %; Platelet Count 239 X 10*3/uL (140-440); RBC 3.74 X 10*6/uL (4.40-5.60); RDW 14.5 % (11.5-14.5); WBC 7.22 X 10*3/uL (4.50-10.00)
[2024-10-03 08:52] LABS: Blood Urea Nitrogen 6.3 mg/dL (9.0-27.0); Carbon Dioxide 20.4 mmol/L (21.6-31.8); Chloride 105 mmol/L (96-109); Glucose 135 mg/dL (70-110); Magnesium 1.6 mg/dL (1.5-2.4); Potassium 4.4 mmol/L (3.5-5.5); Sodium 136 mmol/L (135-145)
--- NOTE | 2024-10-03 09:12 | P.PN ---
Subjective HISTORY OF PRESENT ILLNESS: This is an 84-year-old male patient of Dr. Eric Reed with past medical history of coronary artery disease with 6 stents per patient in the past done at [facility] around 2003, carotid artery disease status post carotid stents at [facility] 2 years ago, hypertension, dyslipidemia, diabetes, persistent atrial fibrillation on Eliquis. We have been asked to evaluate the patient for chest pain. Patient states that on Wednesday he was sweating to the point that his T-shirt was all wet and had a staggering gait. He states he ended up falling into the wall, feeling dizzy and felt disoriented. He sat down to read the Bible and was trembling for about 1 hour. Then yesterday he had an eye doctor's appointment with Dr. Zamudio. He went home and developed pressure in his chest like someone was sitting on his chest. He checked his heart rate was 108 and his blood pressure was low. He called his daughter who picked him up and brought him into the emergency center. His last Eliquis intake was on 09/26 in the morning. Patient has been started on a heparin drip. Discussed recommendations for cardiac catheterization and he is agreeable to move forward with this and will be scheduled tomorrow. Patient also gives history that his on 08/17. Blood pressure 129/71, heart rate 81, pulse ox 96% on room air. Patient is currently chest pain-free. -EKG: Atrial fibrillation at 108 bpm -Chest x-ray: Cardiomegaly with prominence of the interstitial markings which were could reflect mild pulmonary vascular congestion. -CT of the head and neck: No acute intracranial process. No acute fracture or traumatic subluxation of the cervical spine. -Laboratory studies: WBC 6.6, hemoglobin 10.8. Sodium 131, potassium 3.6, creatinine 0.59. Troponin 0.015, 0.109 and 0.105. AST 111, ALT 111, alkaline phosphatase 128. -Home cardiac medications: Eliquis 5 mg twice daily, aspirin 81 mg daily, a torvastatin 40 mg daily, isosorbide 60 mg daily, metoprolol succinate 50 mg daily, Nitrostat as needed, also on levothyroxine. -Echocardiogram performed on 05/25/2024 in the office revealed EF 55%, moderate left ventricular hypertrophy, moderate aortic regurgitation, mild mitral regurgitation, moderate tricuspid regurgitation, PASP 53 mmHg. -Lexiscan Cardiolite stress test performed in the office on 05/19/2021 revealed normal study. 09/28 Yesterday, patient developed fever in the afternoon and cardiac catheterization scheduled for today has been postponed. Patient updated regarding this. He r emains on a heparin drip which we will continue for full 48 hours. Catheterization may be rescheduled on Wednesday. Due to the fever, consult was added for ID and patient is scheduled for CT of the abdomen pelvis today. Blood cultures and urine cultures have been obtained. Blood pressure 129/68, heart rate 81, pulse ox 98% on room air. Repeat blood work reveals normal WBC at 7.8, hemoglobin 10.2. Echocardiogram results reviewed with the patient. Echocardiogram revealed EF of 55 to 60%, mitral annular calcification and aortic valve sclerosis without significant restriction. Mild to moderate aortic regurgitation and tricuspid regurgitation, minimal mitral regurgitation. No pericardial effusion. No pulmonary hypertension. 09/28 Overnight, patient continued to have fevers and also had episode this morning at 5 AM with slurred speech, nystagmus and lower extremity weakness. Consult was added for neurology and he underwent a stat CT of the brain which was negative for acute findings. He also had a chest x-ray that showed chronic lung markings versus bilateral lower lobe pneumonia. Blood culture is positive for Pseudomonas. ID is following. Patient was scheduled for cardiac ca theterization today which will be canceled and postponed until patient's febrile illness has been resolved. Plan is for medical management only. Echocardiogram revealed normal LV size and function, mild to moderate aortic regurgitation tricuspid regurgitation, minimal mitral regurgitation. 10/02/2024 Cardiology was reconsulted for KATHY by infectious disease. Patient's blood cultures on admission were positive for Pseudomonas [place]. However blood cultures from 09/29 and 09/30 are both negative at this time. Patient currently denies any chest pain or pressure. He denies shortness of breath. 10/03/2024 Patient is status post KATHY with Dr. Reed yesterday revealing mild mitral aortic and moderate tricuspid regurgitation and no evidence of vegetation. Patient's most recent blood cultures remain negative. Patient without complaints of chest pain or shortness of breath. Vital signs are stable. PHYSICAL EXAM: VITAL SIGNS: Reviewed. GENERAL: Well-developed in no acute distress. NECK: Supple. No JVD or thyromegaly LUNGS: Respirations even and unlabored. Lungs essentially clear to auscultation bilaterally. HEART: Irregular rate and rhythm. S1 and S2 heard. EXTREMITIES: Normal range of motion. No clubbing or cyanosis. Peripheral pulses intact. No lower extremity edema ASSESSMENT: Febrile illness Pseudomonas bacteremia Possible TIA NSTEMI Coronary artery disease with previous PCI at [facility] prior to 2003 Carotid artery disease status post carotid stents at [facility] 2 years ago Hypertension Dyslipidemia Diabetes Persistent atrial fibrillation on Eliquis at home PLAN: Continue current cardiac medications including Eliquis, aspirin, Lipitor, Imdur, metoprolol Continue antibiotics per infectious disease Recommend outpatient ischemic evaluation when patient's acute infectious process has resolved Stable for discharge from a cardiac standpoint Patient to follow-up postdischarge with Dr. Reed Nurse practitioner note has been reviewed by physician. Signing provider agrees with the documented findings, assessment, and plan of care documented by EMBEDDED SOFTWARE ENGINEER as a scribe. Objective - Vital Signs Vital signs: Vital Signs Temp 97.9 F 10/03/24 07:00 Pulse 74 10/03/24 07:00 Resp 18 10/03/24 07:00 BP 127/75 10/03/24 07:00 Pulse Ox 96 10/03/24 00:54 FiO2 Intake & Output 10/02/24 10/03/24 10/03/24 18:59 06:59 18:59 Intake Total 286 Output Total 400 900 Balance -114 -900 Intake: IV 50 Oral 236 Output: Urine 400 900 Other: Voiding Method Urinal Urinal Urinal - Labs CBC & Chem 7: 10/03/24 05:26 10/03/24 05:26 Labs: Abnormal Lab Results - Last 24 Hours (Table) 10/03/24 10/03/24 Range/Units 05:26 05:26 RBC 3.74 L (4.40-5.60) X 10*6/uL Hgb 11.0 L (13.0-17.0) g/dL Hct 33.9 L (39.6-50.0) % Immature Gran # 0.07 H (0.00-0.04) X 10*3/uL Lymphocytes # 0.47 L (0.90-5.00) X 10*3/uL Carbon Dioxide 20.4 L (21.6-31.8) mmol/L BUN 6.3 L (9.0-27.0) mg/dL BUN/Creatinine Ratio 9.00 L (12.00-20.00) Ratio Glucose 135 H (70-110) mg/dL Calcium 8.0 L (8.7-10.3) mg/dL Microbiology - Last 24 Hours (Table) 09/29/24 13:21 Blood Culture - Preliminary Blood 09/30/24 05:03 Blood Culture - Preliminary Blood
--- NOTE | 2024-10-03 09:42 | P.PN ---
Subjective Progress Note Date: 10/03/24 This is a pleasant 84-year-old male who was recently admitted with elevated troponins, recent fall, feeling unwell and being closely monitored with multiple medical consultations. Patient developed fevers and chills and was positive bacteremia with infectious disease following maintained on antibiotics. Patient had cardiology evaluate the patient as patient had bacteremia of unknown source and underwent KATHY which was negative and has been cleared by cardiology. Patient did have Pseudomonas sepsis bacteremia with most recent cultures being negative. Patient will likely transition to oral antibiotics on discharge. Patient with weakness and prolonged hospitalization and initial admission after a fall would recommend PT/OT therapy evaluation. Plan is to return home with help in the home and will arrange for home care. Will await PT therapy notes Review of systems: Constitutional: No reports of fatigue, fever, or chills Cardiovascular: No reports of chest pain or palpitations Respiratory: No reports of shortness of breath or cough GI: No reports of nausea, no reports of vomiting, no diarrhea : No reports of dysuria or retention Neurovascular: reports of generalized weakness All medications have been reviewed PHYSICAL EXAMINATION: GENERAL: The patient is alert and oriented x4, Well developed, elderly appearing, ill-appearing, obese HEENT: Pupils are round and equally reacting to light. EOMI. no scleral icterus. No conjunctival pallor. Normocephalic, atraumatic. No pharyngeal erythema. No thyromegaly. CARDIOVASCULAR: S1 and S2 muffled PULMONARY: diminished breath sounds bilaterally with no wheezing or rhonchi noted. ABDOMEN: soft. Nontender on exam. obese. non-distended, normoactive bowel sounds. No palpable organomegaly. MUSCULOSKELETAL: No joint swelling or deformity. EXTREMITIES: No cyanosis, clubbing, or pedal edema. NEUROLOGICAL: Gross neurological examination did not reveal any focal deficits. Diffuse weakness SKIN: No rashes. Assessment: Acute NSTEMI for cardiac catheterization, catheterization was canceled as patient developed a fever with positive blood cultures Status post KATHY with no evidence of vegetation and some mild mitral aortic and moderate tricuspid regurgitation noted Sepsis with Pseudomonas bacteremia, present on admission History of syncope Recent fall prior to hospitalization, mechanical, denies syncopal episode History of of coronary artery disease with recent stenting History of AAA, being monitored outpatient Hyperlipidemia Hypertension Hypothyroidism Obesity with a BMI 31.2 GI prophylaxis DVT prophylaxis Full code Plan: Recommend to continue with current medications and management per infectious disease, cardiology, neurology. Patient was evaluated by neurology and stroke has been ruled out Cardiology evaluating the patient and patient had persistent bacteremia and underwent KATHY as mentioned above that was negative Infectious disease following and patient is maintained on IV antibiotics in the form of cefepime and most recent blood cultures from 09-29 and 09-30 remain negative. Initial blood culture showing Pseudomonas aeruginosa Encouraged increase activity as tolerated as patient initially did come in with weakness and a fall and has not been evaluated by PT/OT therapy as patient was significantly weak and having fevers and ongoing further neurological/infectious workup Patient reports would like to be up and walking and have consulted PT, encouraged increase activity as tolerated including sitting up in the chair more frequently Per infectious disease patient will require oral antibiotics on discharge and recommend outpatient follow-up with cardiology Possible discharge planning in the next 24 hours after evaluation from physical therapy The impression and plan of care has been dictated by Vicky Alvarado, nurse practitioner as directed. Dr. Osiris MD I have performed a history and examination and MDM of this patient, discussed the same with the dictator, and agree with the dictator's assessment and plan as written ,documented as a scribe. Based on total visit time, I have performed more than 50% of the visit. Any additional findings or plans will be noted. Objective - Vital Signs Vital signs: Vital Signs Temp 97.9 F 10/03/24 07:00 Pulse 74 10/03/24 07:00 Resp 18 10/03/24 07:00 BP 127/75 10/03/24 07:00 Pulse Ox 96 10/03/24 00:54 FiO2 Intake & Output 10/02/24 10/03/24 10/03/24 18:59 06:59 18:59 Intake Total 286 Output Total 400 900 Balance -114 -900 Intake: IV 50 Oral 236 Output: Urine 400 900 Other: Voiding Method Urinal Urinal Urinal - Labs CBC & Chem 7: 10/03/24 05:26 10/03/24 05:26 Labs: Abnormal Lab Results - Last 24 Hours (Table) 10/03/24 10/03/24 Range/Units 05:26 05:26 RBC 3.74 L (4.40-5.60) X 10*6/uL Hgb 11.0 L (13.0-17.0) g/dL Hct 33.9 L (39.6-50.0) % Immature Gran # 0.07 H (0.00-0.04) X 10*3/uL Lymphocytes # 0.47 L (0.90-5.00) X 10*3/uL Carbon Dioxide 20.4 L (21.6-31.8) mmol/L BUN 6.3 L (9.0-27.0) mg/dL BUN/Creatinine Ratio 9.00 L (12.00-20.00) Ratio Glucose 135 H (70-110) mg/dL Calcium 8.0 L (8.7-10.3) mg/dL Microbiology - Last 24 Hours (Table) 09/29/24 13:21 Blood Culture - Preliminary Blood 09/30/24 05:03 Blood Culture - Preliminary Blood
[2024-10-03 13:50] VITALS: BMI 31.1
--- NOTE | 2024-10-03 14:49 | P.PN ---
Subjective Progress Note Date: 10/03/24 Principal diagnosis: Reason for follow-up is here with possible pneumonia Patient is 84-year-old male past medical history difficult for hypertension hyperlipidemia hypothyroidism coronary artery disease presenting to the hospital after the patient felt dizzy and fall onto the wall patient did have a fever prompting this consultation. On today's evaluation that is 10/03/2024, Patient is afebrile this morning patient denies having any chest pain shortness of breath or cough, the patient is currently on room air, patient denies any abdominal pain no diarrhea no shanna sea no vomiting, feeling better no new symptoms. Patient white count 7.22, creatinine 0.7 blood culture repeat remains to be negative Objective - Vital Signs Vital signs: Vital Signs Temp 97.9 F 10/03/24 07:00 Pulse 74 10/03/24 07:00 Resp 18 10/03/24 07:00 BP 127/75 10/03/24 07:00 Pulse Ox 96 10/03/24 00:54 FiO2 Intake & Output 10/02/24 10/03/24 10/03/24 18:59 06:59 18:59 Intake Total 286 118 Output Total 400 900 Balance -114 -900 118 Intake: IV 50 Oral 236 118 Output: Urine 400 900 Other: Voiding Method Urinal Urinal Urinal - Exam GENERAL DESCRIPTION: An elderly male lying in bed in no distress RESPIRATORY SYSTEM: Unlabored breathing , decreased breath sounds at bases HEART: S1 S2 regular rate and rhythm , ABDOMEN: Soft , no tenderness EXTREMITIES: No edema feet - Labs CBC & Chem 7: 10/03/24 05:26 10/03/24 05:26 Labs: Abnormal Lab Results - Last 24 Hours (Table) 10/03/24 10/03/24 Range/Units 05:26 05:26 RBC 3.74 L (4.40-5.60) X 10*6/uL Hgb 11.0 L (13.0-17.0) g/dL Hct 33.9 L (39.6-50.0) % Immature Gran # 0.07 H (0.00-0.04) X 10*3/uL Lymphocytes # 0.47 L (0.90-5.00) X 10*3/uL Carbon Dioxide 20.4 L (21.6-31.8) mmol/L BUN 6.3 L (9.0-27.0) mg/dL BUN/Creatinine Ratio 9.00 L (12.00-20.00) Ratio Glucose 135 H (70-110) mg/dL Calcium 8.0 L (8.7-10.3) mg/dL Microbiology - Last 24 Hours (Table) 09/30/24 05:03 Blood Culture - Preliminary Blood 09/29/24 13:21 Blood Culture - Preliminary Blood Assessment and Plan (1) SIRS (systemic inflammatory response syndrome) Status: Acute Code(s): R65.10 - SIRS OF NON-INFECTIOUS ORIGIN W/O ACUTE ORGAN DYSFUNCTION SNOMED Code(s): 079785599 (2) Pneumonia Status: Acute Code(s): J18.9 - PNEUMONIA, UNSPECIFIED ORGANISM SNOMED Code(s): 470611292 (3) Bacteremia due to Pseudomonas Status: Acute Code(s): R78.81 - BACTEREMIA; B96.5 - PSEUDOMONAS (MALLEI) CAUSING DISEASES CLASSD [id number] SNOMED Code(s): 3697159909 Plan: 1patient did have features of SIRS in this patient with a fever and tachycardia however he did have normal white count and did have predominantly respiratory symptoms however the chest x-ray did not show any consolidation with a question of possible viral etiology 2-patient did have a negative COVID RSV and influenza PCR CT abdominal pelvis came back negative as well 3-patient did have elevated procalcitonin with respiratory symptom and blood culture with Pseudomonas source there was a question of pneumonia however CT of the chest did not show any significant consolidation CT abdominal pelvis also did not show any source for this bacteremia, patient did have rom KATHY that was negative for any vegetation 4plan is to finish therapy with oral Cipro x 10 days on discharge as no evidence of any deep source and close outpatient follow-up this was discussed with THERMAL CUTTING MACHINE OPERATOR for admitting team Dictation was produced using [employer] dictation software. please excuse any grammatical, word or spelling errors. Time with Patient: Less than 30
== END 2024-10-03 14:28 | disposition home or self-care (01) | DRG 871 ==
LOC: EC 18:42 → 6NMEDSUR 20:33 → OBSVTOIN 20:34 → 6NMEDSUR 21:18
PROVIDERS: ADMIT Hospitalist; ATTEND Hospitalist
PROC: B246ZZ4 Ultrasonography of Right and Left Heart, Transesophageal (ICD-10-PCS; principal; 2024-10-02 11:45)
DX: A41.52 Sepsis due to Pseudomonas (principal); I21.4 Non-ST elevation (NSTEMI) myocardial infarction; J15.1 Pneumonia due to Pseudomonas; E87.1 Hypo-osmolality and hyponatremia; I48.19 Other persistent atrial fibrillation; S09.90XA Unspecified injury of head, initial encounter; J44.0 Chronic obstructive pulmonary disease with (acute) lower respiratory infection; E11.9 Type 2 diabetes mellitus without complications; D64.9 Anemia, unspecified; E86.0 Dehydration; I10 Essential (primary) hypertension; E03.9 Hypothyroidism, unspecified; E66.9 Obesity, unspecified; I70.0 Atherosclerosis of aorta; I08.3 Combined rheumatic disorders of mitral, aortic and tricuspid valves; Z11.52 Encounter for screening for COVID-19; I25.10 Atherosclerotic heart disease of native coronary artery without angina pectoris; Z95.5 Presence of coronary angioplasty implant and graft; E78.5 Hyperlipidemia, unspecified; Z79.01 Long term (current) use of anticoagulants; Z68.31 Body mass index [BMI] 31.0-31.9, adult; E83.42 Hypomagnesemia; F17.210 Nicotine dependence, cigarettes, uncomplicated; K44.9 Diaphragmatic hernia without obstruction or gangrene; H55.00 Unspecified nystagmus; K80.20 Calculus of gallbladder without cholecystitis without obstruction; W18.30XA Fall on same level, unspecified, initial encounter; Z79.82 Long term (current) use of aspirin; Z79.84 Long term (current) use of oral hypoglycemic drugs; Z79.890 Hormone replacement therapy; Z79.899 Other long term (current) drug therapy; Z86.0100 Personal history of colon polyps, unspecified; Z86.79 Personal history of other diseases of the circulatory system; Z87.442 Personal history of urinary calculi; Z96.653 Presence of artificial knee joint, bilateral
CPT/HCPCS: 36415; 70450; 71045; 71260; 72125; 74177; 80048; 80053; 80074; 81001; 82607; 82746; 83036; 83605; 83735; 83880; 84100; 84145; 84443; 84484; 85025; 85027; 85379; 85610; 85652; 85730; 86140; 87040; 87077; 87086; 87186; 87636; 93005; 93306; 93312; 93320; 93325; 93880; 96361; 96374; 99291

== ENCOUNTER → 2024-10-23 | Outpatient (CLI) | payer MEDICARE | END | disposition home or self-care (01) | LOC: LABWHC1 08:43 | PROVIDERS: ATTEND Internal Medicine Infectious Disease | DX: B96.5 Pseudomonas (aeruginosa) (mallei) (pseudomallei) as the cause of diseases classified elsewhere (principal) | CPT/HCPCS: 87040 ==

== ENCOUNTER 2025-01-18 08:32 | Inpatient (IN) | payer MEDICARE ==
--- NOTE | 2025-01-18 09:15 | ED ---
General Adult HPI - General Chief complaint: Syncope Stated complaint: Back pain Time Seen by Provider: 01/18/25 08:34 Source: patient Mode of arrival: EMS Limitations: no limitations - History of Present Illness Initial comments: Dictation was produced using [employer] dictation software. please excuse any grammatical, word or spelling errors. Chief Complaint: 84-year-old male presents to the emergency department for back pain, presyncope History of Present Illness: Patient is an 84-year-old male who is accompanied by his daughter. Patient for the last week or so has been having worsening back pain. States it is worse when he twists stands up. States that he does not have any history of chronic back pain. Patient has been presyncopal. States he has been feeling lightheaded with perhaps some chills recently. Patient concerned he is having a kidney infection again. Patient had a presyncopal episode twice in the last 72 hours. States that at 1 point he was laying on the ground he was so lightheaded. States at that time he was laying down for approximately 7 hours. The ROS documented in this emergency department record has been reviewed and confirmed by me. Those systems with pertinent positive or negative responses have been documented in the HPI. All other systems are other negative and/or noncontributory. - Related Data Home Medications Medication Instructions Recorded Confirmed Aspirin EC [Ecotrin Low Dose] 81 mg PO DAILY@0900 10/30/16 01/18/25 Isosorbide Mononitrate ER [Imdur] 60 mg PO DAILY@0910/30/16 01/18/25 Nitroglycerin Sl Tabs [Nitrostat] 0.4 mg SL Q5M PRN 10/30/16 01/18/25 Omeprazole 20 mg PO HS@1800 10/30/16 01/18/25 Levothyroxine Sodium [Synthroid] 50 mcg PO DAILY@0900 01/13/18 01/18/25 Niacin (Inositol Niacinate) 500 mg PO HS@1800 10/19/20 01/18/25 [Niacin 500 mg Capsule] Apixaban [Eliquis] 5 mg PO BID@0900,1800 09/26/24 01/18/25 Atorvastatin [Lipitor] 40 mg PO DAILY@0900 09/26/24 01/18/25 Dulaglutide [Trulicity] 0.75 mg SQ TH@0900 09/26/24 01/18/25 Acetaminophen Tab [Tylenol Tab] 1,000 mg PO Q6H PRN 01/18/25 01/18/25 Previous Rx's Medication Instructions Recorded Metoprolol Tartrate [Lopressor] 50 mg PO BID #60 tab 10/03/24 Allergies Allergy/AdvReac Type Severity Reaction Status Date / Time No Known Allergies Allergy Verified 01/18/25 10:49 Review of Systems ROS Statement: Those systems with pertinent positive or pertinent negative responses have been documented in the HPI. ROS Other: All systems not noted in ROS Statement are negative. Past Medical History Past Medical History: Coronary Artery Disease (CAD), Hyperlipidemia, Hypertension, Thyroid Disorder Additional Past Medical History / Comment(s): cardiac stents, AAA (states Dr is watching), hx kidney stones, hx of colon polyps History of Any Multi-Drug Resistant Organisms: None Reported Past Surgical History: Heart Catheterization With Stent, Tonsillectomy Additional Past Surgical History / Comment(s): 6 stents, charity cataracts Past Anesthesia/Blood Transfusion Reactions: No Reported Reaction Date of Last Stent Placement:: unknown Past Psychological History: No Psychological Hx Reported Smoking Status: Former smoker Past Alcohol Use History: None Reported Past Drug Use History: None Reported - Past Family History Mother Family Medical History: No Reported History General Exam - General Exam Comments Initial Comments: PHYSICAL EXAM: General Impression: Alert and oriented x3, not in acute distress HEENT: Normocephalic atraumatic, extra-ocular movements intact, pupils equal and reactive to light bilaterally, mucous membranes moist. Cardiovascular: Heart regular rate and rhythm Chest: Able to complete full sentences, no retractions, no tachypnea Abdomen: abdomen soft, non-tender, non-distended, no organomegaly Musculoskeletal: Pulses present and equal in all extremities, no peripheral edema Motor: no focal deficits noted Neurological: CN II-XII grossly intact, no focal motor or sensory deficits noted Skin: Intact with no visualized rashes Psych: Normal affect and mood Limitations: no limitations Course Vital Signs 01/18/25 01/18/25 01/18/25 08:33 08:52 10:02 Temperature 97.7 F Pulse Rate 82 90 Pulse Rate [ 107 H Outpatient Case Manager ] Respiratory 22 22 Rate Blood Pressure 167/81 171/92 O2 Sat by Pulse 98 95 Oximetry 01/18/25 10:53 Temperature 98.0 F Pulse Rate 94 Pulse Rate [ Outpatient Case Manager ] Respiratory 20 Rate Blood Pressure 181/99 O2 Sat by Pulse 95 Oximetry EKG Findings - EKG Comments: EKG Findings:: My EKG interpretation: Ventricular rate 101, A-fib? Versus sinus arrhythmia, QRS 97, QTc 428. No [place] prolongation, no QTC prolongation, no ST or T-wave changes noted. Patient does not have a history of A-fib. However EKG compared to October 02, 2024 appears to be comparable. Medical Decision Making - Medical Decision Making Was pt. sent in by a medical professional or institution (, PA, ENROLLMENT NURSE, urgent care, hospital, or senior care...) When possible be specific @ -No Did you speak to anyone other than the patient for history (EMS, parent, family, police, friend...)? What history was obtained from this source @ -No Did you review nursing and triage notes (agree or disagree)? Why? @ -I reviewed and agree with nursing and triage notes Were old charts reviewed (outside hosp., previous admission, EMS record, old EKG, old radiological studies, urgent care reports/EKG's, senior care records)? Report findings @ -No old charts were reviewed Differential Diagnosis (chest pain, altered mental status, abdominal pain women, abdominal pain men, vaginal bleeding, musculoskeletal, weakness, fever, dyspnea, syncope, headache, dizziness, GI bleed, back pain, seizure, CVA, palpatations, mental health)? @ -Differential Syncope: Valvular disease, hypertrophic cardiomyopathy, pulmonary embolism, tamponade, tachycardia, bradycardia, [place], hypovolemia, hemorrhage, dissection, anemia, intracranial hemorrhage, seizure, hypoglycemia, carbon monoxide poisoning, this is not meant to be an all-inclusive list. EKG interpreted by me (3pts min.). @ -See above X-rays interpreted by me (1pt min.). @ -Chest x-ray shows no acute processes CT interpreted by me (1pt min.). @ -CT lumbar spine shows no acute processes U/S interpreted by me (1pt. min.). @ -None done What testing was considered but not performed or refused? (CT, X-rays, U/S, labs)? Why? @ -None What meds were considered but not given or refused? Why? @ -None Was smoking cessation discussed for >3mins.? @ -No Were there social determinants of health that impacted care today? How? (Homelessness, low income, unemployed, alcoholism, drug addiction, transportation, low edu. Level, literacy, decrease access to med. care, longterm, rehab)? @ -No Was there de-escalation of care discussed even if they declined (Discuss DNR or withdrawal of care, Hospice)? DNR status @ -No What co-morbidities impacted this encounter? (DM, HTN, Smoking, COPD, CAD, Cancer, CVA, ARF, Chemo, Hep., AIDS, mental health diagnosis, sleep apnea, morbid obesity)? @ -None Was patient admitted / discharged? Hospital course, mention meds given and route , prescriptions, significant lab abnormalities, going to OR and other pertinent info. @ -84-year-old male presents emergency department with syncope, presyncope and orthopnea. Vital signs upon arrival are within acceptable limits. Laboratory evaluation obtained. CBC within acceptable limits. Coag within acceptable limits. Elevated BUN to creatinine ratio and slight acidosis. Consistent with dehydration. Magnesium is low at 1.3.'s negative. Imaging studies are negative for acute processes. Patient will be admitted with consultation to cardiology suspect the patient syncope is likely secondary to poor hydration status. Did you discuss the management of the patient with other professionals (professionals i.e. , PA, ENROLLMENT NURSE, lab, RT, psych nurse, clinical social work therapist, programmer or analyst, teacher, county health officer, case consultant)? Give summary @ -Case discussed with hospitalist for admission Was critical care preformed (if so, how long)? @ -No Undiagnosed new problem with uncertain prognosis? @ -No Drug Therapy requiring intensive monitoring for toxicity (Heparin, Nitro, Insulin, Cardizem)? @ -No Were any procedures done? @ -No Diagnosis/symptom? Acute, or Chronic, or Acute on Chronic? Uncomplicated (without systemic symptoms) or Complicated (systemic symptoms)? @ -Presyncope Side effects of treatment? @ -No Exacerbation, Progression, or Severe Exacerbation? @ -No Poses a threat to life or bodily function? How? (Chest pain, [place], [place], pneumonia, PE, COPD, DKA, ARF, appy, cholecystitis, CVA, Diverticulitis, Homicidal, Suicidal, threat to staff... and all critical care pts) @ -yes - Lab Data Result diagrams: 01/18/25 09:10 01/18/25 09:10 Lab Results 01/18/25 01/18/25 01/18/25 Range/Units 09:10 09:10 09:10 WBC 10.27 H (4.50-10.00) 10*3/uL RBC 4.34 L (4.40-5.60) 10*6/uL Hgb 12.7 L (13.0-17.0) g/dL Hct 36.7 L (39.6-50.0) % MCV 84.6 (80.0-97.0) fL MCH 29.3 (27.0-32.0) pg MCHC 34.6 (32.0-37.0) g/dL Plt Count 181 (140-440) 10*3/uL MPV 10.2 (9.5-12.2) fL Immature Gran % (Auto) 0.8 % Neutrophils % 87.1 % Lymphocytes % 6.7 % Monocytes % 5.1 % Eosinophils % 0.0 % Basophils % 0.3 % Immature Gran # 0.08 H (0.00-0.04) 10*3/uL Neutrophils # 8.95 H (1.80-7.70) 10*3/uL Lymphocytes # 0.69 L (0.90-5.00) 10*3/uL Monocytes # 0.52 (0.20-1.00) 10*3/uL Eosinophils # 0.00 L (0.04-0.35) 10*3/uL Basophils # 0.03 (0.00-0.10) 10*3/uL PT 12.1 (10.0-12.5) sec INR 1.1 (<1.2) APTT 25.9 (22.0-30.0) sec Sodium 138 (137-145) mmol/L Potassium 4.4 (3.5-5.1) mmol/L Chloride 103 (98-107) mmol/L Carbon Dioxide 18 L (22-30) mmol/L Anion Gap 17 mmol/L BUN 38 H (9-20) mg/dL Creatinine 1.07 (0.66-1.25) mg/dL Est GFR (CKD-EPI)AfAm 75 (>60 ml/min/1.73 sqM) Est GFR (CKD-EPI)NonAf 65 (>60 ml/min/1.73 sqM) Glucose 204 H (74-99) mg/dL Plasma Lactic Acid Erik (0.7-2.0) mmol/L Calcium 8.9 (8.4-10.2) mg/dL Magnesium 1.3 L (1.6-2.3) mg/dL Total Bilirubin 1.2 (0.2-1.3) mg/dL AST 46 (17-59) U/L ALT 38 (4-49) U/L Alkaline Phosphatase 117 (38-126) U/L Creatine Kinase 252 H (55-170) U/L Troponin I (0.000-0.034) ng/mL C-Reactive Protein 18.1 H (<1.0) mg/dL Total Protein 8.3 H (6.3-8.2) g/dL Albumin 4.1 (3.5-5.0) g/dL Urine Color Urine Appearance (Clear) Urine pH (5.0-8.0) Ur Specific [place] (1.001-1.035) Urine Protein (Negative) Urine Glucose (UA) (Negative) Urine Ketones (Negative) Urine Blood (Negative) Urine Nitrite (Negative) Urine Bilirubin (Negative) Urine Urobilinogen (<2.0) mg/dL Ur Leukocyte Esterase (Negative) 01/18/25 01/18/25 01/18/25 Range/Units 09:10 09:10 09:25 WBC (4.50-10.00) 10*3/uL RBC (4.40-5.60) 10*6/uL Hgb (13.0-17.0) g/dL Hct (39.6-50.0) % MCV (80.0-97.0) fL MCH (27.0-32.0) pg MCHC (32.0-37.0) g/dL Plt Count (140-440) 10*3/uL MPV (9.5-12.2) fL Immature Gran % (Auto) % Neutrophils % % Lymphocytes % % Monocytes % % Eosinophils % % Basophils % % Immature Gran # (0.00-0.04) 10*3/uL Neutrophils # (1.80-7.70) 10*3/uL Lymphocytes # (0.90-5.00) 10*3/uL Monocytes # (0.20-1.00) 10*3/uL Eosinophils # (0.04-0.35) 10*3/uL Basophils # (0.00-0.10) 10*3/uL PT (10.0-12.5) sec INR (<1.2) APTT (22.0-30.0) sec Sodium (137-145) mmol/L Potassium (3.5-5.1) mmol/L Chloride (98-107) mmol/L Carbon Dioxide (22-30) mmol/L Anion Gap mmol/L BUN (9-20) mg/dL Creatinine (0.66-1.25) mg/dL Est GFR (CKD-EPI)AfAm (>60 ml/min/1.73 sqM) Est GFR (CKD-EPI)NonAf (>60 ml/min/1.73 sqM) Glucose (74-99) mg/dL Plasma Lactic Acid Erik 1.9 (0.7-2.0) mmol/L Calcium (8.4-10.2) mg/dL Magnesium (1.6-2.3) mg/dL Total Bilirubin (0.2-1.3) mg/dL AST (17-59) U/L ALT (4-49) U/L Alkaline Phosphatase (38-126) U/L Creatine Kinase (55-170) U/L Troponin I <0.012 (0.000-0.034) ng/mL C-Reactive Protein (<1.0) mg/dL Total Protein (6.3-8.2) g/dL Albumin (3.5-5.0) g/dL Urine Color Yellow Urine Appearance Clear (Clear) Urine pH 5.0 (5.0-8.0) Ur Specific [place] 1.019 (1.001-1.035) Urine Protein Trace H (Negative) Urine Glucose (UA) Negative (Negative) Urine Ketones Negative (Negative) Urine Blood Negative (Negative) Urine Nitrite Negative (Negative) Urine Bilirubin Negative (Negative) Urine Urobilinogen <2.0 (<2.0) mg/dL Ur Leukocyte Esterase Negative (Negative) Disposition Clinical Impression: Syncope Disposition: ADMITTED IP TO THIS [facility] Condition: Fair Referrals: Oswald Ashraf MD [Primary Care Provider] - 1-2 days Decision Time: 11:00
[2025-01-18 09:21] LABS: Basophils # (A) 0.03 10*3/uL (0.00-0.10); Basophils % (A) 0.3 %; Eosinophils # (A) 0.00 10*3/uL (0.04-0.35); Eosinophils % (A) 0.0 %; HCT 36.7 % (39.6-50.0); HGB 12.7 g/dL (13.0-17.0); Lymphocytes # (A) 0.69 10*3/uL (0.90-5.00); Lymphocytes % (A) 6.7 %; MCH 29.3 pg (27.0-32.0); MCHC 34.6 g/dL (32.0-37.0); MCV 84.6 fL (80.0-97.0); Monocytes # (A) 0.52 10*3/uL (0.20-1.00); Monocytes % (A) 5.1 %; Neutrophils # (A) 8.95 10*3/uL (1.80-7.70); Neutrophils % (A) 87.1 %; Platelet Count 181 10*3/uL (140-440); RBC 4.34 10*6/uL (4.40-5.60); RDW 13.3 % (11.5-14.5); WBC 10.27 10*3/uL (4.50-10.00)
[2025-01-18 09:34] LABS: INR 1.1 (<1.2); Partial Thromboplastin Time 25.9 sec (22.0-30.0); Prothrombin Time 12.1 sec (10.0-12.5)
[2025-01-18 09:35] LABS: ALT 38 U/L (4-49); African American GFR (CKD) 75 (>60 ml/min/1.73 sqM); Albumin 4.1 g/dL (3.5-5.0); Anion Gap 17 mmol/L; Blood Urea Nitrogen 38 mg/dL (9-20); Calcium 8.9 mg/dL (8.4-10.2); Carbon Dioxide 18 mmol/L (22-30); Chloride 103 mmol/L (98-107); Creatine Kinase 252 U/L (55-170); Glucose 204 mg/dL (74-99); Non-African American GFR(CKD) 65 (>60 ml/min/1.73 sqM); Sodium 138 mmol/L (137-145); Total Protein 8.3 g/dL (6.3-8.2)
[2025-01-18 09:42] LABS: Bilirubin,Urine Negative (Negative); Blood,Urine Negative (Negative); Color,Urine Yellow; Glucose,Urine (UA) Negative (Negative); Ketones,Urine Negative (Negative); Leukocyte Esterase,Urine Negative (Negative); Nitrite,Urine Negative (Negative); PH, Urine 5.0 (5.0-8.0); Protein,Urine Trace (Negative); Specific Gravity,Urine 1.019 (1.001-1.035); Urobilinogen,Urine <2.0 mg/dL (<2.0)
[2025-01-18 09:49] LABS: AST 46 U/L (17-59); Alkaline Phosphatase 117 U/L (38-126); Magnesium 1.3 mg/dL (1.6-2.3); Potassium 4.4 mmol/L (3.5-5.1)
--- NOTE | 2025-01-18 09:57 | XR ---
EXAMINATION TYPE: XR chest 1V DATE OF EXAM: 01/18/2025 9:53 AM COMPARISON: Chest radiographs from 09/29/2024, CT chest 09/29/2024 TECHNIQUE: XR chest 1V Frontal view of the chest. CLINICAL INDICATION:Male, 84 years old with history of syncope; FINDINGS: Lungs/Pleura: There is no evidence of pleural effusion, focal consolidation, or pneumothorax. Pulmonary vascularity: Unremarkable. Heart/mediastinum: Cardiomediastinal silhouette is enlarged and stable. Atherosclerotic calcificatio ns are seen in the aorta. Musculoskeletal: No acute osseous pathology. IMPRESSION: Chronic changes without acute pulmonary process. No significant change from prior. [facility], , 01/18/2025 9:55 AM
--- NOTE | 2025-01-18 10:21 | CT ---
EXAMINATION TYPE: CT lumbar spine wo con DATE OF EXAM: 01/18/2025 10:03 AM COMPARISON: . CLINICAL INDICATION: Male, 84 years old with history of back pain; PHH, falls recently with flank rosie n and difficulty urniating TECHNIQUE: Multiple axial images were obtained from the midportion of T11 through the sacroiliac austin nts. Soft tissue and bone windows in coronal and sagittal planes were obtained and reviewed. 3-D ref ormats of the bones were created on a separate workstation and submitted for review. Contrast used: mL of , (None, if empty). Oral contrast used: (None, if empty). CT DLP: 1716.6 mGycm, Automated exposure control for dose reduction was used. FINDINGS: Alignment: There are 5 lumbar type vertebral bodies . Grade 1 anterolisthesis of L5 on S1 Bone: No evidence of fracture is identified. Multilevel degeneration changes with osteophyte formati on, disc space narrowing, facet joint arthropathy. Discs: T12-L1: No spinal canal or neural foraminal stenosis is identified. L1-L2: No spinal canal or neural foraminal stenosis is identified. L2-L3: Facet joint arthropathy and disc bulging result in mild spinal canal stenosis and mild bilater al neural foraminal stenosis. L3-L4: Disc bulge and facet arthropathy. Abundant epidural fat at this level surrounds the cauda equi na narrowing the thecal sac L4-L5: Disc bulge and facet arthropathy. Abundant epidural fat at this level surrounds the cauda equi na narrowing the thecal sac. Facet arthropathy of moderate bilateral neural foraminal stenosis. L5-S1: No significant disc pathology. Abundant epidural fat at this level surrounds the cauda equina narrowing the thecal sac. Facet arthropathy of moderate bilateral neural foraminal stenosis. Other: Infrarenal abdominal aortic aneurysm up to 4.4 cm. Scattered colonic diverticula. Gallstones i n the gallbladder lumen. IMPRESSION: 1. No evidence for spinal fracture. 2. Epidural lipomatosis from L3 to S1 which surrounds the thecal sac and narrows it. 3. 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 At least moderate multilevel neural foramin al stenosis in the lower spine. 4. Grade 1 anterolisthesis of L5 on S1 5. Infrarenal abdominal aortic aneurysm up to 4.4 cm. 6. Scattered colonic diverticula. 7. Gallstones in the gallbladder lumen. [facility], , 01/18/2025 10:19 AM
[2025-01-18] MEDS: MAGNESIUM SULFATE-D5W PMX 1 GM in DEXTROSE/WATER 1 100ML.BAG IVPB SCH (10:45)
[2025-01-18] MEDS: SODIUM CHLORIDE 0.9% 1,000 ML IV STA (10:46)
[2025-01-18] MEDS ORDERED: NALOXONE 0.4 MG/ML 1 ML VIAL IV PRN (11:48)
[2025-01-18] MEDS ORDERED: NITROGLYCERIN SL TABS 0.4 MG TAB SUBLINGUAL PRN (12:22)
[2025-01-18] MEDS ORDERED: Magnesium Replacement Protocol 1 EACH MISC MISCELLANE PRN (12:25)
--- NOTE | 2025-01-18 12:27 | P.HPIM ---
History of Present Illness Patient is a pleasant 84 years old male with past medical history of multiple medical problems as below including history of dissections in his heart Presents because of recurrent syncope he was been passing out daily over the last 3 days to 4 days. Associated close nonspecific dizziness but no headache. No specific limb weakness or numbness or blurred vision or double vision He has some vision problems and he follow-up with Dr. partida He denies chest pain or dyspnea. No other specific GI/ symptoms He has mild headache about 2-3/10 on the right side He states that recently he has been treated for UTI however he denies any urinary symptoms and urinalysis is negative. Vital stable afebrile. Is mildly tachycardic with heart rate 102. CBC BMP LFT and liver enzymes were unremarkable. Troponin is negative less than 0.012. Urinalysis normal. Chest x-ray showing no acute cardiopulmonary process EKG showing sinus tachyca rdia congestion with no significant ST-T changes but there is multiple PVCs. He was started on aspirin 325 mg admitted with cardiology team consult Patient currently complains from spasm in his lower back that comes severely for a few seconds before letting go Review of Systems Review of systems CONSTITUTIONAL: No fever, no malaise, no fatigue. HEENT: No recent visual problems or hearing problems. Denied any sore throat. CARDIOVASCULAR: No orthopnea, PND, no palpitations, no syncope. PULMONARY: No shortness of breath, no cough, no hemoptysis. GASTROINTESTINAL: No diarrhea, no nausea, no vomiting, no abdominal pain. Normoactive bowel sounds. NEUROLOGICAL: No headaches, no weakness, no numbness. HEMATOLOGICAL: Denies any bleeding or petechiae. GENITOURINARY: Denies any burning micturition, frequency, or urgency. MUSCULOSKELETAL/RHEUMATOLOGICAL: Denies any joint pain, swelling, or any muscle pain. ENDOCRINE: Denies any polyuria or polydipsia. Past Medical History Past Medical History: Coronary Artery Disease (CAD), Hyperlipidemia, Hypertension, Thyroid Disorder Additional Past Medical History / Comment(s): cardiac stents, AAA (states Dr is watching), hx kidney stones, hx of colon polyps History of Any Multi-Drug Resistant Organisms: None Reported Past Surgical History: Heart Catheterization With Stent, Tonsillectomy Additional Past Surgical History / Comment(s): 6 stents, charity cataracts Past Anesthesia/Blood Transfusion Reactions: No Reported Reaction Date of Last Stent Placement:: unknown Past Psychological History: No Psychological Hx Reported Smoking Status: Former smoker Past Alcohol Use History: None Reported Past Drug Use History: None Reported - Past Family History Mother Family Medical History: No Reported History Medications and Allergies Home Medications Medication Instructions Recorded Confirmed Type Aspirin EC [Ecotrin Low Dose] 81 mg PO DAILY@0900 10/30/16 01/18/25 History Isosorbide Mononitrate ER [Imdur] 60 mg PO DAILY@0900 10/30/16 01/18/25 History Nitroglycerin Sl Tabs [Nitrostat] 0.4 mg SL Q5M PRN 10/30/16 01/18/25 History Omeprazole 20 mg PO HS@1800 10/30/16 01/18/25 History Levothyroxine Sodium [Synthroid] 50 mcg PO DAILY@0900 01/13/18 01/18/25 History Niacin (Inositol Niacinate) 500 mg PO HS@1800 10/19/20 01/18/25 History [Niacin 500 mg Capsule] Apixaban [Eliquis] 5 mg PO BID@0900,1800 09/26/24 01/18/25 History Atorvastatin [Lipitor] 40 mg PO DAILY@0900 09/26/24 01/18/25 History Dulaglutide [Trulicity] 0.75 mg SQ TH@0900 09/26/24 01/18/25 History Metoprolol Tartrate [Lopressor] 50 mg PO BID #60 tab 10/03/24 01/18/25 Rx Acetaminophen Tab [Tylenol Tab] 1,000 mg PO Q6H PRN 01/18/25 01/18/25 History Allergies Allergy/AdvReac Type Severity Reaction Status Date / Time No Known Allergies Allergy Verified 01/18/25 10:49 Physical Exam Vitals: Vital Signs Temp Pulse Pulse Resp BP Pulse Ox 01/18/25 10:53 98.0 F 94 20 181/99 95 01/18/25 10:02 90 22 171/92 95 01/18/25 08:52 107 H 01/18/25 08:33 97.7 F 82 22 167/81 98 Intake and Output 01/17/25 01/18/25 01/18/25 22:59 06:59 14:59 Other: Weight 107.955 kg GENERAL: The patient is alert and oriented x3, not in any acute distress. Well developed, well nourished. HEENT: Pupils are round and equally reacting to light. EOMI. No scleral icterus. No conjunctival pallor. Normocephalic, atraumatic. No pharyngeal erythema. No thyromegaly. CARDIOVASCULAR: S1 and S2 present. No murmurs, rubs, or gallops. PULMONARY: Chest is clear to auscultation, no wheezing , no crackles. ABDOMEN: Soft, nontender, nondistended, normoactive bowel sounds. No palpable organomegaly. MUSCULOSKELETAL: No joint swelling or deformity. EXTREMITIES: No cyanosis, clubbing, or pedal edema. NEUROLOGICAL: Gross neurological examination did not reveal any focal deficits. SKIN: No rashes. no petechiae. Results CBC & Chem 7: 01/18/25 09:10 01/18/25 09:10 Labs: Abnormal Lab Results - Last 24 Hours (Table) 01/18/25 01/18/25 01/18/25 Range/Units 09:10 09:10 09:25 WBC 10.27 H (4.50-10.00) 10*3/uL RBC 4.34 L (4.40-5.60) 10*6/uL Hgb 12.7 L (13.0-17.0) g/dL Hct 36.7 L (39.6-50.0) % Immature Gran # 0.08 H (0.00-0.04) 10*3/uL Neutrophils # 8.95 H (1.80-7.70) 10*3/uL Lymphocytes # 0.69 L (0.90-5.00) 10*3/uL Eosinophils # 0.00 L (0.04-0.35) 10*3/uL Carbon Dioxide 18 L (22-30) mmol/L BUN 38 H (9-20) mg/dL Glucose 204 H (74-99) mg/dL Magnesium 1.3 L (1.6-2.3) mg/dL Creatine Kinase 252 H (55-170) U/L C-Reactive Protein 18.1 H (<1.0) mg/dL Total Protein 8.3 H (6.3-8.2) g/dL Urine Protein Trace H (Negative) Assessment and Plan Assessment: Recurrent syncope and falling, last few seconds with no seizure activity Generalized weakness Hypomagnesemia Dehydration A-fib with mild RVR Hypertension Hyperlipidemia Coronary disease status post stent AAA Plan: Continue telemetry Cardiology team consult Resume Eliquis and aspirin Continue with normal sinus 75 beats per hour Check orthostatic vitals Pain management with Dilaudid [place] and Tylenol consult neurology service Replace magnesium per protocol and monitor closely Labs and medication were reviewed.. Continue same treatment. Continue with sym ptomatic treatment. Resume home medication. Monitor labs and vitals. DVT and GI prophylaxis. Further recommendations as per clinical course of the patient DVT prophylaxis: Eliquis GI Prophylaxis: Pepcid PT/OT: Pending Prognosis is guarded
[2025-01-18] MEDS: SODIUM CHLORIDE 0.9% 1,000 ML IV SCH (13:59)
[2025-01-18] MEDS: HYDROmorphone 0.5 MG/0.5 ML SYRINGE IVP STA (13:59)
[2025-01-18] MEDS: LIDOCAINE 4% CREAM 5 GM TUBE TOPICAL ONE (14:01)
[2025-01-18] MEDS: LABETALOL 5 MG/ML VIAL MDV IVP STA (14:40)
[2025-01-18] MEDS: APIXABAN 5 MG TAB PO SCH (18:30)
[2025-01-18] MEDS: FAMOTIDINE 20 MG/2 ML VIAL IV SCH (21:04)
[2025-01-18] MEDS: METOPROLOL TARTRATE 50 MG TAB PO SCH (21:04)
[2025-01-18] MEDS: ACETAMINOPHEN TAB 500 MG TAB PO PRN (21:32)
[2025-01-19 00:04] LABS: Glucose,Whole Blood 156 mg/dL (70-110)
[2025-01-19 06:20] LABS: Glucose,Whole Blood 229 mg/dL (70-110)
[2025-01-19] MEDS: LEVOTHYROXINE 50 MCG TAB PO SCH (08:38)
[2025-01-19] MEDS: ASPIRIN 81 MG PO SCH (08:38)
[2025-01-19] MEDS: ISOSORBIDE MONONITRATE ER 60 MG TAB.ER.24H PO SCH (08:38)
[2025-01-19] MEDS: ATORVASTATIN 40 MG TAB PO SCH (08:38)
--- NOTE | 2025-01-19 08:38 | P.PN ---
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 Associated close nonspecific dizziness but no headache. No specific limb weakness or numbness or blurred vision or double vision He has some vision problems and he follow-up with Dr. partida He denies chest pain or dyspnea. No other specific GI/ symptoms He has mild headache about 2-3/10 on the right side He states that recently he has been treated for UTI however he denies any urinary symptoms and urinalysis is negative. Vital stable afebrile. Is mildly tachycardic with heart rate 102. CBC BMP LFT and liver enzymes were unremarkable. Troponin is negative less than 0.012. Urinalysis normal. Chest x-ray showing no acute cardiopulmonary process EKG showing sinus tachycardia congestion with no significant ST-T changes but there is multiple PVCs. He was started on aspirin 325 mg admitted with cardiology team consult Patient currently complains from spasm in his lower back that comes severely for a few seconds before letting go 01/19 Patient awake alert not in distress today. He feels better he says he can get up today compared to yesterday but he still complaining from back pain His back pain looks better than yesterday like 10/19 however once he try to move his leg even with little bend of the knee he developed severe pain in the lower back. No chest pain dyspnea or abdominal pain or tenderness.. He spiked a fever 104 overnight. Labs from yesterday showing WBC 10.2 hemoglobin 12.7. INR 1.1. Potassium is 4.4 creatinine 1.07. Patient still getting normal saline 75 mL/h. He is on Dilaudid for pain control also he is on aspirin Eliquis and Pepcid Active Medications Generic Name Dose Route Start Last Admin Trade Name Freq PRN Reason Stop Dose Admin Acetaminophen 1,000 mg 01/18/25 12:22 01/18/25 21:32 Acetaminophen Tab 500 Mg Tab PO 1,000 mg Q6H PRN Administration Pain Hydrocodone Bitart/Acetaminophen 1 each 01/18/25 12:23 Hydrocodone/Apap 5-325mg 1 Each Tab PO Q6HR PRN Pain Apixaban 5 mg 01/18/25 18:00 01/18/25 18:30 Apixaban 5 Mg Tab PO 5 mg BID@0900,1800 [facility] Administration Protocol Aspirin 81 mg 01/19/25 09:00 Aspirin 81 Mg PO DAILY@0900 [facility] Atorvastatin Calcium 40 mg 01/19/25 09:00 Atorvastatin 40 Mg Tab PO DAILY@0900 [facility] Famotidine 20 mg 01/18/25 21:00 01/18/25 21:04 Famotidine 20 Mg/2 Ml Vial IV 20 mg Q12HR [facility] Administration Hydromorphone HCl 0.5 mg 01/18/25 12:19 Hydromorphone 0.5 Mg/0.5 Ml Syringe IVP Q6HR PRN Pain Sodium Chloride 1,000 mls @ 75 mls/hr 01/18/25 12:00 01/19/25 05:04 Saline 0.9% IV Not Given .[id number] [facility] Isosorbide Mononitrate 60 mg 01/19/25 09:00 Isosorbide Mononitrate Er 60 Mg Tab.Er.24h PO DAILY@0900 [facility] Levothyroxine Sodium 50 mcg 01/19/25 09:00 Levothyroxine 50 Mcg Tab PO DAILY@0900 [facility] Metoprolol Tartrate 50 mg 01/18/25 21:00 01/18/25 21:04 Metoprolol Tartrate 50 Mg Tab PO 50 mg BID [facility] Administration Miscellaneous Information 1 each 01/18/25 12:25 Magnesium Replacement Protocol 1 Each Misc MISCELLANE DAILY PRN Per Protocol Protocol Naloxone HCl 0.2 mg 01/18/25 11:48 Naloxone 0.4 Mg/Ml 1 Ml Vial IV Q2M PRN Opioid Reversal Nitroglycerin 0.4 mg 01/18/25 12:22 Nitroglycerin Sl Tabs 0.4 Mg Tab SUBLINGUAL Q5M PRN Chest Pain Objective - Vital Signs Vital signs: Vital Signs Temp 97.6 F 01/19/25 04:18 Pulse 78 01/19/25 04:18 Resp 18 01/19/25 04:18 BP 105/63 01/19/25 04:18 Pulse Ox 97 01/19/25 04:18 FiO2 Intake & Output 01/18/25 01/19/25 01/19/25 18:59 06:59 18:59 Weight 107.955 kg 103.5 kg Other: Voiding Method Diaper # Voids 1 - Exam -GENERAL: The patient is alert and oriented x3, not in any acute distress. Well developed, well nourished. Obese HEENT: Pupils are round and equally reacting to light. EOMI. No scleral icterus. No conjunctival pallor. Normocephalic, atraumatic. No pharyngeal erythema. No thyromegaly. CARDIOVASCULAR: S1 and S2 present. No murmurs, rubs, or gallops. PULMONARY: Chest is clear to auscultation, no wheezing , no crackles. ABDOMEN: Soft, nontender, nondistended, normoactive bowel sounds. No palpable organomegaly. MUSCULOSKELETAL: No joint swelling or deformity. EXTREMITIES: No cyanosis, clubbing, or pedal edema. NEUROLOGICAL: Gross neurological examination did not reveal any focal deficits. SKIN: No rashes. no petechiae. - Labs CBC & Chem 7: 01/18/25 09:10 01/18/25 09:10 Labs: Abnormal Lab Results - Last 24 Hours (Table) 01/18/25 01/18/25 01/18/25 Range/Units 09:10 09:10 09:25 WBC 10.27 H (4.50-10.00) 10*3/uL RBC 4.34 L (4.40-5.60) 10*6/uL Hgb 12.7 L (13.0-17.0) g/dL Hct 36.7 L (39.6-50.0) % Immature Gran # 0.08 H (0.00-0.04) 10*3/uL Neutrophils # 8.95 H (1.80-7.70) 10*3/uL Lymphocytes # 0.69 L (0.90-5.00) 10*3/uL Eosinophils # 0.00 L (0.04-0.35) 10*3/uL ESR 89 H (0-20) mm/Hr Carbon Dioxide 18 L (22-30) mmol/L BUN 38 H (9-20) mg/dL Glucose 204 H (74-99) mg/dL POC Glucose (mg/dL) (70-110) mg/dL Magnesium 1.3 L (1.6-2.3) mg/dL Creatine Kinase 252 H (55-170) U/L C-Reactive Protein 18.1 H (<1.0) mg/dL Total Protein 8.3 H (6.3-8.2) g/dL Urine Protein Trace H (Negative) 01/19/25 01/19/25 Range/Units 00:03 06:19 WBC (4.50-10.00) 10*3/uL RBC (4.40-5.60) 10*6/uL Hgb (13.0-17.0) g/dL Hct (39.6-50.0) % Immature Gran # (0.00-0.04) 10*3/uL Neutrophils # (1.80-7.70) 10*3/uL Lymphocytes # (0.90-5.00) 10*3/uL Eosinophils # (0.04-0.35) 10*3/uL ESR (0-20) mm/Hr Carbon Dioxide (22-30) mmol/L BUN (9-20) mg/dL Glucose (74-99) mg/dL POC Glucose (mg/dL) 156 H 229 H (70-110) mg/dL Magnesium (1.6-2.3) mg/dL Creatine Kinase (55-170) U/L C-Reactive Protein (<1.0) mg/dL Total Protein (6.3-8.2) g/dL Urine Protein (Negative) Assessment and Plan Assessment: Recurrent syncope and falling, last few seconds with no seizure activity Fever of unknown origin Acute lower back pain Generalized weakness Hypomagnesemia Dehydration A-fib with mild RVR Hypertension Hyperlipidemia Coronary disease status post stent AAA Plan: Continue telemetry Cardiology team consult Resume Eliquis and aspirin Check blood culture procalcitonin. Consult infectious disease team Continue with normal sinus 75 beats per hour Check orthostatic vitals Pain management with Dilaudid [place] and Tylenol consult neurology service Replace magnesium per protocol and monitor closely Labs and medication were reviewed.. Continue same treatment. Continue with symptomatic treatment. Resume home medication. Monitor labs and vitals. DVT and GI prophylaxis. Further recommendations as per clinical course of the patient DVT prophylaxis: Eliquis GI Prophylaxis: Pepcid PT/OT: Pending Prognosis is guarded
[2025-01-19 09:19] LABS: HCT 30.5 % (39.6-50.0); HGB 10.6 g/dL (13.0-17.0); MCH 29.9 pg (27.0-32.0); MCHC 34.8 g/dL (32.0-37.0); MCV 86.2 fL (80.0-97.0); Platelet Count 167 10*3/uL (140-440); RBC 3.54 10*6/uL (4.40-5.60); RDW 13.6 % (11.5-14.5); WBC 13.44 10*3/uL (4.50-10.00)
[2025-01-19 09:30] LABS: African American GFR (CKD) 77 (>60 ml/min/1.73 sqM); Anion Gap 13 mmol/L; Blood Urea Nitrogen 31 mg/dL (9-20); Calcium 8.3 mg/dL (8.4-10.2); Carbon Dioxide 18 mmol/L (22-30); Chloride 103 mmol/L (98-107); Glucose 257 mg/dL (74-99); Magnesium 1.4 mg/dL (1.6-2.3); Non-African American GFR(CKD) 67 (>60 ml/min/1.73 sqM); Potassium 3.7 mmol/L (3.5-5.1); Sodium 134 mmol/L (137-145)
[2025-01-19 11:06] LABS: Glucose,Whole Blood 256 mg/dL (70-110)
[2025-01-19 12:21] LABS: Lymphocytes # (M) 1.75 k/uL (1.0-4.8); Monocytes # (M) 0.27 k/uL (0-1.0); Neutrophils # (M) 11.42 k/uL (1.3-7.7); Neutrophils % (M) 85 %; Total Cells Counted 100
[2025-01-19] MEDS: MAGNESIUM SULFATE-D5W PMX 1 GM in DEXTROSE/WATER 1 100ML.BAG IVPB SCH (12:24)
[2025-01-19] MEDS: HYDROcodone/APAP 5-325MG 1 EACH TAB PO PRN (12:24)
[2025-01-19] MEDS: INSULIN LISPRO (HumaLOG) 100 UNIT/ML 10 mL VL SQ SCH (12:25)
[2025-01-19 16:21] LABS: Glucose,Whole Blood 180 mg/dL (70-110)
[2025-01-19 16:44] LABS: RSV Not Detected (Not Detectd)
--- NOTE | 2025-01-19 18:30 | P.CRDCN ---
History of Present Illness Consult date: 01/19/25 History of present illness: HISTORY OF PRESENTING ILLNESS: 84-year-old with PMH of multiple medical problems presents to the hospital because of recurrent syncope, passing out over the last 3 to 4 days. Also reporting nonspecific dizziness lightheadedness, generalized weakness. He is also reporting some mild headache on the right side. Reports that recently he was treated for urinary tract infection Cardiology was consulted for syncope evaluation Admission labs hemoglobin 12.7, WBC 10.7, BUN 30, creatinine 1.07, CPK 252, troponins are not elevated, EKG shows atrial fibrillation heart rate 101 bpm ............................................................. ................................................................................ . Prior cardiac testing: He had a KATHY in 09/2024 for ruling out endocarditis and did not show significant valvular dysfunction other than mild MR mild TR. No evidence of vegetation. .................................... ................................................................................ .......................... PHYSICAL EXAMINATION: Neck: Brisk carotid upstroke, no jugular venous distention. Lungs: Minimal crackles with poor inspiratory effort Heart: Irregular pulse, mild systolic murmur audible Abdomen: Soft nontender, positive bowel sounds. Extremities: No edema, intact distal pulses. Neuro: Alert, oritented, no focal deficits. Detailed neuro exam was not performed. ............................ ................................................................................ .................................. ASSESSMENT: # Generalized weakness and lightheadedness # Questionable fall, questionable syncope # Fever likely sepsis # Failure to thrive # Persistent atrial fibrillation # CAD status post PCI at [facility] in 2003 # Carotid disease status post carotid stent in [place] 2021 Essential hypertension # Dyslipidemia # Type 2 diabetes PLAN: Obtain orthostatic vital signs Continue to monitor telemetry Obtain updated echocardiogram Continue aspirin 81 mg, Eliquis 5 twice daily, Lipitor 40, metoprolol 50 twice daily Balaji Agosto MD, FACC, VI Past Medical History Past Medical History: Atrial Fibrillation, Coronary Artery Disease (CAD), Diab etes Mellitus, Hyperlipidemia, Hypertension, Syncope, Thyroid Disorder Additional Past Medical History / Comment(s): cardiac stents, carotid stent, AAA (states Dr is watching), hx kidney stones, hx of colon polyps, kidney infection History of Any Multi-Drug Resistant Organisms: None Reported Past Surgical History: Heart Catheterization With Stent, Tonsillectomy Additional Past Surgical History / Comment(s): 6 stents, charity cataracts Past Anesthesia/Blood Transfusion Reactions: No Reported Reaction Date of Last Stent Placement:: unknown Smoking Status: Former smoker - Past Family History Mother Family Medical History: No Reported History Medications and Allergies Home Medications Medication Instructions Recorded Confirmed Type Aspirin EC [Ecotrin Low Dose] 81 mg PO DAILY@0900 10/30/16 01/18/25 History Isosorbide Mononitrate ER [Imdur] 60 mg PO DAILY@0900 10/30/16 01/18/25 History Nitroglycerin Sl Tabs [Nitrostat] 0.4 mg SL Q5M PRN 10/30/16 01/18/25 History Omeprazole 20 mg PO HS@1800 10/30/16 01/18/25 History Levothyroxine Sodium [Synthroid] 50 mcg PO DAILY@0900 01/13/18 01/18/25 History Niacin (Inositol Niacinate) 500 mg PO HS@1800 10/19/20 01/18/25 History [Niacin 500 mg Capsule] Apixaban [Eliquis] 5 mg PO BID@0900,1800 09/26/24 01/18/25 History Atorvastatin [Lipitor] 40 mg PO DAILY@0909/26/24 01/18/25 History Dulaglutide [Trulicity] 0.75 mg SQ TH@0909/26/24 01/18/25 History Metoprolol Tartrate [Lopressor] 50 mg PO BID #60 tab 10/03/24 01/18/25 Rx Acetaminophen Tab [Tylenol Tab] 1,000 mg PO Q6H PRN 01/18/25 01/18/25 History Allergies Allergy/AdvReac Type Severity Reaction Status Date / Time No Known Allergies Allergy Verified 01/18/25 10:49 Physical Exam Vitals: Vital Signs Temp Pulse Pulse Resp BP BP Pulse Ox 01/19/25 12:28 73 16 102/62 97 01/19/25 08:37 97.4 F L 75 18 115/71 98 01/19/25 04:18 97.6 F 78 18 105/63 97 01/19/25 00:18 98.7 F 01/18/25 22:25 101.3 F H 83 20 113/62 01/18/25 21:30 104.1 F H 118 H 24 144/74 01/18/25 21:16 101 H 18 179/96 97 Intake and Output 01/19/25 01/19/25 01/19/25 06:59 14:59 22:59 Intake Total 118 118 Output Total 600 Balance -482 118 Intake: Oral 118 118 Output: Urine 600 Other: Voiding Method Diaper Urinal Diaper Weight 103.5 kg 103.5 kg Results 01/19/25 08:19 01/19/25 08:03 CBC 01/19/25 Range/Units 08:19 WBC 13.44 H (4.50-10.00) 10*3/uL RBC 3.54 L (4.40-5.60) 10*6/uL Hgb 10.6 L (13.0-17.0) g/dL Hct 30.5 L (39.6-50.0) % Plt Count 167 (140-440) 10*3/uL Comprehensive Metabolic Panel 01/19/25 Range/Units 08:03 Sodium 134 L (137-145) mmol/L Potassium 3.7 (3.5-5.1) mmol/L Chloride 103 (98-107) mmol/L Carbon Dioxide 18 L (22-30) mmol/L BUN 31 H (9-20) mg/dL Creatinine 1.04 (0.66-1.25) mg/dL Glucose 257 H (74-99) mg/dL Calcium 8.3 L (8.4-10.2) mg/dL Current Medications Generic Name Dose Route Start Last Admin Trade Name Freq PRN Reason Stop Dose Admin Acetaminophen 1,000 mg 01/18/25 12:22 01/18/25 21:32 Acetaminophen Tab 500 Mg Tab PO 1,000 mg Q6H PRN Administration Pain Hydrocodone Bitart/Acetaminophen 1 each 01/18/25 12:23 01/19/25 12:24 Hydrocodone/Apap 5-325mg 1 Each Tab PO 1 each Q6HR PRN Administration Pain Apixaban 5 mg 01/18/25 18:00 01/19/25 08:38 Apixaban 5 Mg Tab PO 5 mg BID@0900,1800 [facility] Administration Protocol Aspirin 81 mg 01/19/25 09:00 01/19/25 08:38 Aspirin 81 Mg PO 81 mg DAILY@0900 [facility] Administration Atorvastatin Calcium 40 mg 01/19/25 09:00 01/19/25 08:38 Atorvastatin 40 Mg Tab PO 40 mg DAILY@0900 [facility] Administration Famotidine 20 mg 01/18/25 21:00 01/19/25 08:38 Famotidine 20 Mg/2 Ml Vial IV 20 mg Q12HR [facility] Administration Hydromorphone HCl 0.5 mg 01/18/25 12:19 Hydromorphone 0.5 Mg/0.5 Ml Syringe IVP Q6HR PRN Pain Sodium Chloride 1,000 mls @ 75 mls/hr 01/18/25 12:00 01/19/25 15:57 Saline 0.9% IV 75 mls/hr .[id number] [facility] Administration Insulin Human Lispro 0 unit 01/19/25 12:30 01/19/25 12:25 Insulin Lispro (Humalog) 100 Unit/Ml 10 Ml Vl SQ 6 unit ACHS [facility] Administration Protocol Isosorbide Mononitrate 60 mg 01/19/25 09:00 01/19/25 08:38 Isosorbide Mononitrate Er 60 Mg Tab.Er.24h PO 60 mg DAILY@0900 [facility] Administration Levothyroxine Sodium 50 mcg 01/19/25 09:00 01/19/25 08:38 Levothyroxine 50 Mcg Tab PO 50 mcg DAILY@0900 [facility] Administration Metoprolol Tartrate 50 mg 01/18/25 21:00 01/19/25 08:38 Metoprolol Tartrate 50 Mg Tab PO 50 mg BID [facility] Administration Miscellaneous Information 1 each 01/18/25 12:25 Magnesium Replacement Protocol 1 Each Misc MISCELLANE DAILY PRN Per Protocol Protocol Naloxone HCl 0.2 mg 01/18/25 11:48 Naloxone 0.4 Mg/Ml 1 Ml Vial IV Q2M PRN Opioid Reversal Nitroglycerin 0.4 mg 01/18/25 12:22 Nitroglycerin Sl Tabs 0.4 Mg Tab SUBLINGUAL Q5M PRN Chest Pain Intake and Output 01/19/25 01/19/25 01/19/25 06:59 14:59 22:59 Intake Total 118 118 Output Total 600 Balance -482 118 Intake: Oral 118 118 Output: Urine 600 Other: Voiding Method Diaper Urinal Diaper Weight 103.5 kg 103.5 kg Patient Weight 01/20/25 06:59 Weight 103.5 kg 01/19/25 08:19 01/19/25 08:03
[2025-01-19 19:21] LABS: Glucose,Whole Blood 161 mg/dL (70-110)
[2025-01-19 19:31] LABS: ABG HCO3 15 mmol/L (21-25); ABG PCO2 25 mmHg (35-45); ABG PH 7.40 (7.35-7.45); ABG PO2 211 mmHg (83-108); ABG TCO2 16 mmol/L (19-24); Allen Test Performed? Yes
[2025-01-19 20:05] LABS: HCT 34.7 % (39.6-50.0); HGB 12.0 g/dL (13.0-17.0); MCH 29.5 pg (27.0-32.0); MCHC 34.6 g/dL (32.0-37.0); MCV 85.3 fL (80.0-97.0); RBC 4.07 10*6/uL (4.40-5.60); RDW 14.3 % (11.5-14.5); WBC 10.24 10*3/uL (4.50-10.00)
[2025-01-19 20:10] LABS: Platelet Count 340 10*3/uL (140-440)
[2025-01-19] MEDS ORDERED: VANCOMYCIN IV PER PHARMACY 1 EACH MISC MISCELLANE PRN (20:12)
--- NOTE | 2025-01-19 20:12 | XR ---
EXAMINATION TYPE: XR chest 1V portable DATE OF EXAM: 01/19/2025 7:40 PM CLINICAL INDICATION:Male, 84 years old with history of Resp distress; PHH COMPARISON: Chest radiograph 01/18/2025 TECHNIQUE: XR chest 1V portable Frontal view of the chest. FINDINGS: Lungs/Pleura: Mild left hemidiaphragm elevation. Poor penetration on exam limits evaluation. Hazy int erstitial opacities are suggested bilaterally. No pneumothorax. Pulmonary vascularity: Unremarkable. Heart/mediastinum: Cardiomediastinal silhouette is enlarged. Atherosclerotic calcifications are seen in the aorta. Musculoskeletal: No acute osseous pathology. IMPRESSION: Cardiomegaly with hazy interstitial opacities. Correlate for congestive process. Left hemidiaphragm e levation. [facility], , 01/19/2025 8:10 PM
[2025-01-19] MEDS: PIPERACILLIN-TAZOBACTAM 3.375 GM in SODIUM CHLORIDE 0.9% 100 ML IVPB SCH (20:17)
[2025-01-19 20:37] LABS: Lymphocytes # (M) 1.02 k/uL (1.0-4.8); Monocytes # (M) 0.10 k/uL (0-1.0); Neutrophils # (M) 9.11 k/uL (1.3-7.7); Neutrophils % (M) 86 %; Total Cells Counted 100
[2025-01-19] MEDS: SODIUM CHLORIDE 0.9% 1,000 ML IV ONE ×2 (20:45→21:45)
[2025-01-19 20:46] LABS: Bilirubin,Urine Negative (Negative); Blood,Urine Large (Negative); Color,Urine Yellow; Glucose,Urine (UA) Negative (Negative); Ketones,Urine Negative (Negative); Leukocyte Esterase,Urine Negative (Negative); Mucus,Urine Rare /hpf; Nitrite,Urine Negative (Negative); PH, Urine 5.5 (5.0-8.0); Protein,Urine 1+ (Negative); RBC,Urine 3 /hpf (0-5); Specific Gravity,Urine 1.018 (1.001-1.035); Squamous Epithelial Cell,Urine <1 /hpf (0-4); Urobilinogen,Urine <2.0 mg/dL (<2.0); WBC,Urine <1 /hpf (0-5)
--- NOTE | 2025-01-19 20:53 | XR ---
EXAMINATION TYPE: XR hand complete LT DATE OF EXAM: 01/19/2025 8:36 PM CLINICAL INDICATION:Male, 84 years old with history of 5th finger brusing and pain; PHH, pain COMPARISON: None TECHNIQUE: XR hand complete LT Frontal, lateral and oblique views were obtained. FINDINGS: IV catheter overlying the fourth and fifth digits obscures details. No acute fracture is id entified. No significant soft tissue swelling. Degenerative changes of the hand identified. Generaliz ed osteopenia. IMPRESSION: No gross evidence for acute osseous pathology. Osteopenia. [facility], , 01/19/2025 8:51 PM
[2025-01-19 21:13] LABS: African American GFR (CKD) 78 (>60 ml/min/1.73 sqM); Anion Gap 12 mmol/L; Blood Urea Nitrogen 34 mg/dL (9-20); Calcium 8.1 mg/dL (8.4-10.2); Carbon Dioxide 16 mmol/L (22-30); Chloride 102 mmol/L (98-107); Glucose 189 mg/dL (74-99); Magnesium 1.7 mg/dL (1.6-2.3); Non-African American GFR(CKD) 68 (>60 ml/min/1.73 sqM); Potassium 4.1 mmol/L (3.5-5.1); Sodium 130 mmol/L (137-145)
[2025-01-19] MEDS: VANCOMYCIN 1,750 MG in SODIUM CHLORIDE 0.9% 500 ML 500 ML IVPB SCH (21:47)
--- NOTE | 2025-01-19 22:53 | P.CONS ---
History of Present Illness - Reason for Consult Consult date: 01/19/25 Fever Requesting physician: Femi E Sheet - Chief Complaint Lightheaded and back pain x days - History of Present Illness Patient is a 84-year-old male with a past medical history significant for Atrial Fibrillation, Coronary Artery Disease (CAD), Diabetes Mellitus, Hyperlipidemia, Hypertension, Syncope, Thyroid Disorder presenting to the hospital yesterday morning for evaluation of worsening low back pain complaining of worse when he twists or stands up apparently does not have a history of chronic back pain and denies any history of recent fall did have presyncopal episode the patient felt lightheaded and did have some chills but did not fell off with the symptoms the patient was evaluated on presentation to the hospital the patient was afebrile however he did spike a fever of 104.1 degrees degrees Fahrenheit last night the patient was afebrile this morning though, the patient denies having any headache or URI symptoms but denies having any chest pain shortness of breath or cough but denies having any nausea vomiting abdominal pain no diarrhea has been complaining of pain in lower back area noted intensity P denies having any weakness in the leg no bowel or bladder problem patient did have a white count of 10.24 creatinine is 1.03 lactic acid was 3.7 CRP is 19.6 patient did have a chest x-ray chronic change without acute pulmonary process he also have lumbar spine CT which did show send no evidence for spinal fracture epidural lipomatosis from L3-S1 which are on the thecal sac and manage right moderate severe degenerative changes Review of Systems Positive point and negatives has been mentioned in the HPI, complete review of systems was performed and all other systems are negative Past Medical History Past Medical History: Atrial Fibrillation, Coronary Artery Disease (CAD), Diabetes Mellitus, Hyperlipidemia, Hypertension, Syncope, Thyroid Disorder Additional Past Medical History / Comment(s): cardiac stents, carotid stent, AAA (states is watching), hx kidney stones, hx of colon polyps, kidney infection History of Any Multi-Drug Resistant Organisms: None Reported Past Surgical History: Heart Catheterization With Stent, Tonsillectomy Additional Past Surgical History / Comment(s): 6 stents, charity cataracts Past Anesthesia/Blood Transfusion Reactions: No Reported Reaction Date of Last Stent Placement:: unknown Smoking Status: Former smoker - Past Family History Mother Family Medical History: No Reported History Medications and Allergies Home Medications Medication Instructions Recorded Confirmed Type Aspirin EC [Ecotrin Low Dose] 81 mg PO DAILY@0900 10/30/16 01/18/25 History Isosorbide Mononitrate ER [Imdur] 60 mg PO DAILY@0900 10/30/16 01/18/25 History Nitroglycerin Sl Tabs [Nitrostat] 0.4 mg SL Q5M PRN 10/30/16 01/18/25 History Omeprazole 20 mg PO HS@1800 10/30/16 01/18/25 History Levothyroxine Sodium [Synthroid] 50 mcg PO DAILY@0900 01/13/18 01/18/25 History Niacin (Inositol Niacinate) 500 mg PO HS@1800 10/19/20 01/18/25 History [Niacin 500 mg Capsule] Apixaban [Eliquis] 5 mg PO BID@0900,1800 09/26/24 01/18/25 History Atorvastatin [Lipitor] 40 mg PO DAILY@0900 09/26/24 01/18/25 History Dulaglutide [Trulicity] 0.75 mg SQ TH@0900 09/26/24 01/18/25 History Metoprolol Tartrate [Lopressor] 50 mg PO BID #60 tab 10/03/24 01/18/25 Rx Acetaminophen Tab [Tylenol Tab] 1,000 mg PO Q6H PRN 01/18/25 01/18/25 History Allergies Allergy/AdvReac Type Severity Reaction Status Date / Time No Known Allergies Allergy Verified 01/18/25 10:49 Physical Exam Vitals: Vital Signs Temp Pulse Pulse Resp BP BP Pulse Ox 01/19/25 08:37 97.4 F L 75 18 115/71 98 01/19/25 04:18 97.6 F 78 18 105/63 97 01/19/25 00:18 98.7 F 01/18/25 22:25 101.3 F H 83 20 113/62 01/18/25 21:30 104.1 F H 118 H 24 144/74 01/18/25 21:16 101 H 18 179/96 97 01/18/25 18:00 97 18 193/90 95 01/18/25 16:00 94 18 157/102 91 L 01/18/25 15:00 94 18 156/97 01/18/25 14:55 81 18 144/86 95 01/18/25 14:03 98.4 F 103 H 22 180/100 95 Intake and Output 01/18/25 01/19/25 01/19/25 22:59 06:59 14:59 Intake Total 0 Balance 0 Intake: Oral 0 Other: Voiding Method Diaper # Voids 1 Weight 107.955 kg 103.5 kg GENERAL DESCRIPTION: Elderly male lying in bed, no distress. No tachypnea or accessory muscle of respiration use. HEENT: Shows Pallor , no scleral icterus. Oral mucous membrane is dry. No pharyngeal erythema or thrush NECK: Trachea central, no thyromegaly. LUNGS: Unlabored breathing. Clear to auscultation anteriorly. No wheeze or crackle. HEART: S1, S2, regular rate and rhythm. No loud murmur ABDOMEN: Soft, no tenderness , guarding or rigidity, no organomegaly EXTREMITIES: No edema of feet. SKIN: No rash, no masses palpable. NEUROLOGICAL: The patient is awake, alert, oriented x3, mood and affect normal. Results CBC & Chem 7: 01/19/25 19:40 01/19/25 20:29 Labs: Abnormal Lab Results - Last 24 Hours (Table) 01/18/25 01/19/25 01/19/25 Range/Units 09:10 00:03 06:19 WBC (4.50-10.00) 10*3/uL RBC (4.40-5.60) 10*6/uL Hgb (13.0-17.0) g/dL Hct (39.6-50.0) % Immature Gran # (0.00-0.04) 10*3/uL ESR 89 H (0-20) mm/Hr Sodium (137-145) mmol/L Carbon Dioxide (22-30) mmol/L BUN (9-20) mg/dL Glucose (74-99) mg/dL POC Glucose (mg/dL) 156 H 229 H (70-110) mg/dL Calcium (8.4-10.2) mg/dL Magnesium (1.6-2.3) mg/dL C-Reactive Protein (<1.0) mg/dL 01/19/25 01/19/25 01/19/25 Range/Units 08:03 08:19 11:05 WBC 13.44 H (4.50-10.00) 10*3/uL RBC 3.54 L (4.40-5.60) 10*6/uL Hgb 10.6 L (13.0-17.0) g/dL Hct 30.5 L (39.6-50.0) % Immature Gran # 2.50 H (0.00-0.04) 10*3/uL ESR (0-20) mm/Hr Sodium 134 L (137-145) mmol/L Carbon Dioxide 18 L (22-30) mmol/L BUN 31 H (9-20) mg/dL Glucose 257 H (74-99) mg/dL POC Glucose (mg/dL) 256 H (70-110) mg/dL Calcium 8.3 L (8.4-10.2) mg/dL Magnesium 1.4 L (1.6-2.3) mg/dL C-Reactive Protein 19.6 H (<1.0) mg/dL Assessment and Plan (1) Back pain Current Visit: Yes Status: Acute Code(s): M54.9 - DORSALGIA, UNSPECIFIED SNOMED Code(s): 403016264 (2) SIRS (systemic inflammatory response syndrome) Current Visit: No Status: Acute Code(s): R65.10 - SIRS OF NON-INFECTIOUS ORIGIN W/O ACUTE ORGAN DYSFUNCTION SNOMED Code(s): 650424110 Plan: 1patient presented to hospital with weakness lightheadedness and near syncopal episode has also been complaining of lower back pain with no history of any trauma no start running a fever did have mild elevated white count concerning for possible lumbosacral spinal disease responsible for this fever 2-patient will need MRI of the lumbosacral spine with contrast to better define the abnormality seen on the CT which has been attributed mostly has degenerative changes however we need to rule out discitis/osteomyelitis 3-patient empirically treated with vancomycin and cefepime while awaiting further workup to be completed 4-blood culture obtained results will be followed will check inflammatory markers We will follow on clinical condition and cultures to further adjust medication if needed Thank you for this consultation we will follow the patient along with you Dictation was produced using [employer] dictation software. please excuse any grammatical, word or spelling errors. Time with Patient: Greater than 30
--- NOTE | 2025-01-20 01:21 | EEG ---
DATE OF SERVICE: 01/19/2025 ELECTROENCEPHALOGRAM REPORT PREAMBLE: The patient is an 84-year-old male with recurrent syncope. EEG FINDINGS: This is a 21-channel digital EEG recorded with video component, utilizing 10/20 international system with referential and bipolar montages. Background consists of well-developed, moderately well regulated, predominantly moderate amplitude 6-7 hertz theta activity seen in bihemispheric region. Background is posterior dominant and seems to be reactive to eye opening and closing. Photic driving response was not seen. Brief stage II sleep was seen. No focal or generalized epileptiform activity was seen. IMPRESSION: This is an abnormal EEG due to background slowing, suggestive of [id number] encephalopathy. No focal, lateralized or epileptiform activity was seen. [id number] / IJN: [id number] / MTDD
[2025-01-20 06:05] LABS: Glucose,Whole Blood 170 mg/dL (70-110)
[2025-01-20 07:36] LABS: HCT 29.3 % (39.6-50.0); HGB 9.9 g/dL (13.0-17.0); MCH 29.3 pg (27.0-32.0); MCHC 33.8 g/dL (32.0-37.0); MCV 86.7 fL (80.0-97.0); Platelet Count 146 10*3/uL (140-440); RBC 3.38 10*6/uL (4.40-5.60); RDW 13.9 % (11.5-14.5); WBC 8.63 10*3/uL (4.50-10.00)
[2025-01-20 07:59] LABS: African American GFR (CKD) >90 (>60 ml/min/1.73 sqM); Anion Gap 10 mmol/L; Blood Urea Nitrogen 30 mg/dL (9-20); Calcium 7.6 mg/dL (8.4-10.2); Carbon Dioxide 19 mmol/L (22-30); Chloride 106 mmol/L (98-107); Glucose 145 mg/dL (74-99); Magnesium 1.8 mg/dL (1.6-2.3); Non-African American GFR(CKD) 78 (>60 ml/min/1.73 sqM); Potassium 3.7 mmol/L (3.5-5.1); Sodium 135 mmol/L (137-145)
[2025-01-20] MEDS ORDERED: IOPAMIDOL CONTRAST (ORAL USE) VIAL PO PRN (08:22)
--- NOTE | 2025-01-20 08:35 | P.CNNES ---
History of Present Illness Consult date: 01/19/25 Requesting physician: Femi Jaffe Reason for Consult: dizziness , fall and back pain History of Present Illness: Patient is a 84-year-old right-handed male, known to me from previous admission, came to the hospital by ambulance yesterday at 8:32 AM for recurrent syncopal spells. Patient states that he went to have a haircut on 01/15/2025 and he started shaking. He was going to [employer], and before that he was at a gas station and he almost passed out. Patient states that he remembers putting card in, felt something coming on, and then he felt the ground was coming at him and he just went down, put hit his hands down, but then he couldn't get back up. He knew what was going on. He did not pass out. A lady tried to help, but she could not. The gas appliance servicer helper helped pick him up. He believes the problem is from metformin. The next day on Wednesday, he bought a [employer] Van. He was coming back and felt "cold chills". He made it his home. He was going to the bedroom at the door and started feeling dizzy, felt disoriented. He bounced off the door and the shoulder blade hit the door. He went down to the floor. Did not pass out. This happened at 11:30 AM and he laid there for 7 hours, couldn't get up. He finally crawled to the recliner and called his daughter at 7 PM. she helped him get up. Yesterday she called ambulance because she (his daughter) found him laying on the bed hanging over. He has pain so severe in the lower right side, he couldn't move. As per EMS flowsheet when they arrived, found patient in his bed in a precarious position, feet on the floor, laid back into his bed. Patient stated that he went to the bathroom a few hours ago and could not get out of bed and laid back into the bed and was not able to get all the way onto the bed. Family was there and stated that he has been having mobility issues, uses a cane for support, wobbly on his feet and this has been declining for about 3 weeks. She stated that he had a syncope episode 2 days ago and yesterday felt from standing to the floor and was there for about 7 hours before she came over to help him. She stated that he has not had good ins and outs and his urine has been very little. Patient was alert and orient x 4, GCS of 15. Patient complaining of lower back pain mostly right flank area and family stated that he has a history of renal infection, has been falling a lot and noted a decline in general health. Patient was lifted with a lift device and carried from home via 6 person to the stretcher. EKG showed atrial fibrillation. Patient's vitals at the scene was blood pressure 145/61, pulse rate 88 respirations 16 saturation 97%. Patient's vitals has been stable, although blood pressure was slightly elevated 167/81. Blood tests showed WBC 10.27, hemoglobin 12.7, platelets 181. PT PTT normal. Electrolytes normal, BUN 38 creatinine 1.07. Hepatic panel is normal. Troponin negative. UA negative. CRP is 19.6. EKG showed atrial fibrillation with rapid ventricular response. Chest x-ray showed chronic changes without acute pulmonary process. No significant changes from prior. CT of the lumbar spine showed no evidence for spinal fracture. Epidural lipomatosis from L3-S1 which surrounds the thecal sac and narrows it. Moderate to severe degenerative changes of the spine. At least moderate multilevel neural foraminal stenosis in the lower spine. Grade 1 anterolisthesis of L5 on S1. Internal abdominal aortic aneurysm up to 4.4 cm. Scattered colonic diverticula. Gallstones in the gallbladder lumen. Patient has been seen by myself on 09/29/2024 for slurred speech, nystagmus and weakness. At that time he had near syncopal spells x 2. Review of Systems all pertinent positive and negative review of systems mentioned in the patient in the HPI, otherwise unremarkable. Past Medical History Past Medical History: Atrial Fibrillation, Coronary Artery Disease (CAD), Diabetes Mellitus, Hyperlipidemia, Hypertension, Syncope, Thyroid Disorder Additional Past Medical History / Comment(s): cardiac stents, carotid stent, AAA (states Dr is watching), hx kidney stones, hx of colon polyps, kidney infection History of Any Multi-Drug Resistant Organisms: None Reported Past Surgical History: Heart Catheterization With Stent, Tonsillectomy Additional Past Surgical History / Comment(s): 6 stents, charity cataracts Past Anesthesia/Blood Transfusion Reactions: No Reported Reaction Date of Last Stent Placement:: unknown Smoking Status: Former smoker - Past Family History Mother Family Medical History: No Reported History Medications and Allergies Home Medications Medication Instructions Recorded Confirmed Type Aspirin EC [Ecotrin Low Dose] 81 mg PO DAILY@0900 10/30/16 01/18/25 History Isosorbide Mononitrate ER [Imdur] 60 mg PO DAILY@0900 10/30/16 01/18/25 History Nitroglycerin Sl Tabs [Nitrostat] 0.4 mg SL Q5M PRN 10/30/16 01/18/25 History Omeprazole 20 mg PO HS@1800 10/30/16 01/18/25 History Levothyroxine Sodium [Synthroid] 50 mcg PO DAILY@0900 01/13/18 01/18/25 History Niacin (Inositol Niacinate) 500 mg PO HS@1800 10/19/20 01/18/25 History [Niacin 500 mg Capsule] Apixaban [Eliquis] 5 mg PO BID@0900,1800 09/26/24 01/18/25 History Atorvastatin [Lipitor] 40 mg PO DAILY@0900 09/26/24 01/18/25 History Dulaglutide [Trulicity] 0.75 mg SQ TH@0900 09/26/24 01/18/25 History Metoprolol Tartrate [Lopressor] 50 mg PO BID #60 tab 10/03/24 01/18/25 Rx Acetaminophen Tab [Tylenol Tab] 1,000 mg PO Q6H PRN 01/18/25 01/18/25 History Allergies Allergy/AdvReac Type Severity Reaction Status Date / Time No Known Allergies Allergy Verified 01/18/25 10:49 Physical Examination - Vital Signs Vital Signs: Vital Signs Temp Pulse Pulse Resp BP BP Pulse Ox 01/19/25 08:37 97.4 F L 75 18 115/71 98 01/19/25 04:18 97.6 F 78 18 105/63 97 01/19/25 00:18 98.7 F 01/18/25 22:25 101.3 F H 83 20 113/62 01/18/25 21:30 104.1 F H 118 H 24 144/74 01/18/25 21:16 101 H 18 179/96 97 01/18/25 18:00 97 18 193/90 95 01/18/25 16:00 94 18 157/102 91 L 01/18/25 15:00 94 18 156/97 01/18/25 14:55 81 18 144/86 95 01/18/25 14:03 98.4 F 103 H 22 180/100 95 Intake and Output 01/18/25 01/19/25 01/19/25 22:59 06:59 14:59 Intake Total 0 Balance 0 Intake: Oral 0 Other: Voiding Method Diaper # Voids 1 Weight 107.955 kg 103.5 kg Patient is an elderly male, very pleasant, in no acute distress. He is sitting comfortably in the recliner. Patient is alert awake oriented to time place and person. Speech and language functions are normal. Patient can name and repeat very well. No aphasia or dysarthria. Attention, concentration and fund of knowledge is adequate. On cranial nerve examination, pupils are equal, round and reacting to light, visual wright are full on confrontation, with no neglect on double simultaneous stimulation. Extraocular muscles are intact with no nystagmus. Face is symmetric, tongue protrudes to the midline. Palatal elevation and sensation normal, hearing and shoulder shrug normal, facial sensation normal. On muscle strength testing, there is no pronator drift and the strength is normal in arms and legs distally and proximally. Deep tendon reflexes are symmetric but hypoactive. Sensory to touch is equal with no neglect on double simultaneous stimulation. Cerebellar function showed no ataxia for [id number] testing. No dysdiado chokinesia. No ataxia for [id number] testing on either side. Tone and bulk of muscles normal. Gait deferred.. On general examination, there is no carotid bruit or murmur, S1-S2 audible. Chest is clear on consultation. Abdomen is soft nontender. No organomegaly, bowel sounds present. Peripheral pulses are present. No peripheral edema. Results - Laboratory Findings CBC and BMP: 01/20/25 06:39 01/20/25 06:39 Abnormal Lab Findings: Abnormal Labs 01/18/25 01/18/25 01/18/25 09:10 09:10 09:25 WBC 10.27 H RBC 4.34 L Hgb 12.7 L Hct 36.7 L Immature Gran # 0.08 H Neutrophils # 8.95 H Lymphocytes # 0.69 L Eosinophils # 0.00 L ESR 89 H Sodium Carbon Dioxide 18 L BUN 38 H Glucose 204 H POC Glucose (mg/dL) Calcium Magnesium 1.3 L Creatine Kinase 252 H C-Reactive Protein 18.1 H Total Protein 8.3 H Urine Protein Trace H 01/19/25 01/19/25 01/19/25 00:03 06:19 08:03 WBC RBC Hgb Hct Immature Gran # Neutrophils # Lymphocytes # Eosinophils # ESR Sodium 134 L Carbon Dioxide 18 L BUN 31 H Glucose 257 H POC Glucose (mg/dL) 156 H 229 H Calcium 8.3 L Magnesium 1.4 L Creatine Kinase C-Reactive Protein 19.6 H Total Protein Urine Protein 01/19/25 01/19/25 08:19 11:05 WBC 13.44 H RBC 3.54 L Hgb 10.6 L Hct 30.5 L Immature Gran # 2.50 H Neutrophils # Lymphocytes # Eosinophils # ESR Sodium Carbon Dioxide BUN Glucose POC Glucose (mg/dL) 256 H Calcium Magnesium Creatine Kinase C-Reactive Protein Total Protein Urine Protein Assessment and Plan Assessment: * Near syncopal spells, likely due to orthostatic hypotension versus SIRS related. Rule out other causes. * High fever, leukocytosis, elevated lactate, possible sepsis, unclear cause. * Hypertension * Diabetes * Hyperlipidemia * Atrial fibrillation, on Eliquis * Coronary artery disease * Hypothyroidism * X tobacco use Plan: * EEG was performed today which was abnormal due to background slowing, suggestive of mild to moderate encephalopathy. No focal, lateralized or epi leptiform activity was seen. No indication for antiepileptic medication. * Continue Eliquis for atrial fibrillation * Check orthostatics * 2-D echo initiated by cardiology. * Carotid Doppler on 09/29/2024 revealed bilateral carotid stents without elevated velocities to suggest hemodynamically significant stenosis of the ICAs. Plaque is seen within the bilateral CCA extending into the ICA and ECA. Antegrade flow in both vertebral arteries. No need to repeat carotid Doppler. * Patient undergoing MRI of the lumbar spine for back pain as per ID. * Patient currently on cefepime and vancomycin. * Neurology will follow. Thank you for the consult. Time with Patient: Greater than 30
[2025-01-20] MEDS: HYDROmorphone 1 MG/ML 1 ML SYRINGE IVP PRN (09:46)
[2025-01-20 09:47] LABS: Basophils # (M) 0.26 k/uL (0-0.2); Eosinophils # (M) 0.35 k/uL (0-0.7); Lymphocytes # (M) 0.86 k/uL (1.0-4.8); Neutrophils # (M) 7.16 k/uL (1.3-7.7); Neutrophils % (M) 83 %; Total Cells Counted 100
[2025-01-20 11:31] LABS: Glucose,Whole Blood 155 mg/dL (70-110)
--- NOTE | 2025-01-20 12:34 | P.PN ---
Subjective Progress Note Date: 01/20/25 HISTORY OF PRESENTING ILLNESS: 84-year-old with PMH of multiple medical problems presents to the hospital because of recurrent syncope, passing out over the last 3 to 4 days. Also reporting nonspecific dizziness lightheadedness, generalized weakness. He is also reporting some mild headache on the right side. Reports that recently he was treated for urinary tract infection Cardiology was consulted for syncope evaluation Admission labs hemoglobin 12.7, WBC 10.7, BUN 30, creatinine 1.07, CPK 252, tro ponins are not elevated, EKG shows atrial fibrillation heart rate 101 bpm ......................... ................................................................................ ..................................... Prior cardiac testing: He had a KATHY in 09/2024 for ruling out endocarditis and did not show significant valvular dysfunction other than mild MR mild TR. No evidence of vegetation. . ................................................................................ ............................................................. Progress note 01/20/2025 BP 160/81, repeat 181/99. I feel there is some component of supine hypertension. Therefore for this I would request a nurse to perform orthostatic vital signs. For now we will add losartan 25 mg daily PHYSICAL EXAMINATION: Neck: Brisk carotid upstroke, no jugular venous distention. Lungs: Minimal crackles with poor inspiratory effort Heart: Irregular pulse, mild systolic murmur audible Abdomen: Soft nontender, positive bowel sounds. Extremities: No edema, intact distal pulses. Neuro: Alert, oritented, no focal deficits. Detailed neuro exam was not performed. ............................................................... ............................................................................... ASSESSMENT: # Generalized weakness and lightheadedness # Questionable fall, questionable syncope # Fever likely sepsis # Failure to thrive # Persistent atrial fibrillation # CAD status post PCI at [place] in 2003 # Carotid disease status post carotid stent in [place] 2021 # Essential hypertension # Dyslipidemia # Type 2 diabetes PLAN: Obtain updated echocardiogram. However I do not anticipate it to be getting don e on the weekend as there is no staff in the hospital for echo. Continue aspirin 81 mg, Eliquis 5 twice daily, Lipitor 40, metoprolol 50 twice daily Add losartan 50 mg daily. Reduce Imdur to 30 mg daily. Obtain orthostatic vital signs Recommend outpatient follow-up for echocardiogram and Holter monitor to see heart rate trends to see if it would explain patient's generalized weakness however during telemetry monitoring during hospitalization there were no significant signs. At this time patient appears stable from cardiovascular standpoint. Persistent atrial fibrillation is controlled. Cardiology team will sign off. Please reconsult us in case of any question. Objective - Vital Signs Vital signs: Vital Signs Temp 103.2 F H 01/20/25 12:32 Pulse 103 H 01/20/25 11:30 Resp 16 01/20/25 11:30 BP 95/57 01/20/25 11:30 Pulse Ox 96 01/20/25 11:30 FiO2 Intake & Output 01/19/25 01/20/25 01/20/25 18:59 06:59 18:59 Intake Total 236 240 118 Output Total 600 1600 600 Balance -462 -8124 -468 Weight 103.5 kg 104.5 kg Intake: Oral 236 240 118 Output: Urine 600 1600 600 Other: Voiding Method Urinal Indwelling Catheter Diaper - Labs CBC & Chem 7: 01/20/25 06:39 01/20/25 06:39 Labs: Abnormal Lab Results - Last 24 Hours (Table) 01/19/25 01/19/25 01/19/25 Range/Units 08:43 16:18 19:19 WBC (4.50-10.00) 10*3/uL RBC (4.40-5.60) 10*6/uL Hgb (13.0-17.0) g/dL Hct (39.6-50.0) % Immature Gran # (0.00-0.04) 10*3/uL Neutrophils # (Manual) (1.3-7.7) k/uL Lymphocytes # (Manual) (1.0-4.8) k/uL Basophils # (Manual) (0-0.2) k/uL ABG pCO2 (35-45) mmHg ABG pO2 (83-108) mmHg ABG HCO3 (21-25) mmol/L ABG Total CO2 (19-24) mmol/L ABG O2 Saturation (94-97) % Hemoglobin (13.0-17.5) gm/dL Sodium (137-145) mmol/L Carbon Dioxide (22-30) mmol/L BUN (9-20) mg/dL Glucose (74-99) mg/dL POC Glucose (mg/dL) 180 H 161 H (70-110) mg/dL Plasma Lactic Acid Erik (0.7-2.0) mmol/L Calcium (8.4-10.2) mg/dL C-Reactive Protein (<1.0) mg/dL Procalcitonin 16.60 H (0.02-0.50) ng/mL Urine Protein (Negative) Urine Blood (Negative) Urine Mucus (None) /hpf 01/19/25 01/19/25 01/19/25 Range/Units 19:28 19:40 20:19 WBC 10.24 H (4.50-10.00) 10*3/uL RBC 4.07 L (4.40-5.60) 10*6/uL Hgb 12.0 L (13.0-17.0) g/dL Hct 34.7 L (39.6-50.0) % Immature Gran # (0.00-0.04) 10*3/uL Neutrophils # (Manual) 9.11 H (1.3-7.7) k/uL Lymphocytes # (Manual) (1.0-4.8) k/uL Basophils # (Manual) (0-0.2) k/uL ABG pCO2 25 L (35-45) mmHg ABG pO2 211 H (83-108) mmHg ABG HCO3 15 L (21-25) mmol/L ABG Total CO2 16 L (19-24) mmol/L ABG O2 Saturation 100.0 H (94-97) % Hemoglobin 12.1 L (13.0-17.5) gm/dL Sodium (137-145) mmol/L Carbon Dioxide (22-30) mmol/L BUN (9-20) mg/dL Glucose (74-99) mg/dL POC Glucose (mg/dL) (70-110) mg/dL Plasma Lactic Acid Erik (0.7-2.0) mmol/L Calcium (8.4-10.2) mg/dL C-Reactive Protein (<1.0) mg/dL Procalcitonin (0.02-0.50) ng/mL Urine Protein 1+ H (Negative) Urine Blood Large H (Negative) Urine Mucus Rare H (None) /hpf 01/19/25 01/19/25 01/20/25 Range/Units 20:29 20:29 06:04 WBC (4.50-10.00) 10*3/uL RBC (4.40-5.60) 10*6/uL Hgb (13.0-17.0) g/dL Hct (39.6-50.0) % Immature Gran # (0.00-0.04) 10*3/uL Neutrophils # (Manual) (1.3-7.7) k/uL Lymphocytes # (Manual) (1.0-4.8) k/uL Basophils # (Manual) (0-0.2) k/uL ABG pCO2 (35-45) mmHg ABG pO2 (83-108) mmHg ABG HCO3 (21-25) mmol/L ABG Total CO2 (19-24) mmol/L ABG O2 Saturation (94-97) % Hemoglobin (13.0-17.5) gm/dL Sodium 130 L (137-145) mmol/L Carbon Dioxide 16 L (22-30) mmol/L BUN 34 H (9-20) mg/dL Glucose 189 H (74-99) mg/dL POC Glucose (mg/dL) 170 H (70-110) mg/dL Plasma Lactic Acid Erik 3.7 H* (0.7-2.0) mmol/L Calcium 8.1 L (8.4-10.2) mg/dL C-Reactive Protein (<1.0) mg/dL Procalcitonin (0.02-0.50) ng/mL Urine Protein (Negative) Urine Blood (Negative) Urine Mucus (None) /hpf 01/20/25 01/20/25 01/20/25 Range/Units 06:39 06:39 11:30 WBC (4.50-10.00) 10*3/uL RBC 3.38 L (4.40-5.60) 10*6/uL Hgb 9.9 L D (13.0-17.0) g/dL Hct 29.3 L (39.6-50.0) % Immature Gran # 0.13 H (0.00-0.04) 10*3/uL Neutrophils # (Manual) (1.3-7.7) k/uL Lymphocytes # (Manual) 0.86 L (1.0-4.8) k/uL Basophils # (Manual) 0.26 H (0-0.2) k/uL ABG pCO2 (35-45) mmHg ABG pO2 (83-108) mmHg ABG HCO3 (21-25) mmol/L ABG Total CO2 (19-24) mmol/L ABG O2 Saturation (94-97) % Hemoglobin (13.0-17.5) gm/dL Sodium 135 L (137-145) mmol/L Carbon Dioxide 19 L (22-30) mmol/L BUN 30 H (9-20) mg/dL Glucose 145 H (74-99) mg/dL POC Glucose (mg/dL) 155 H (70-110) mg/dL Plasma Lactic Acid Erik (0.7-2.0) mmol/L Calcium 7.6 L (8.4-10.2) mg/dL C-Reactive Protein 22.2 H (<1.0) mg/dL Procalcitonin (0.02-0.50) ng/mL Urine Protein (Negative) Urine Blood (Negative) Urine Mucus (None) /hpf
[2025-01-20] MEDS: IBUPROFEN 600 MG TAB PO PRN (14:28)
[2025-01-20] MEDS: LOSARTAN 50 MG TAB PO SCH (14:57)
--- NOTE | 2025-01-20 15:45 | P.PN ---
Subjective Progress Note Date: 01/20/25 Principal diagnosis: Reason for follow-up is fever/Pseudomonas bacteremia Patient is a 84-year-old male with a past medical history significant for Atrial Fibrillation, Coronary Artery Disease (CAD), Diabetes Mellitus, Hyperlipidemia, Hypertension, Syncope, Thyroid Disorder presenting to the hospital for evaluation of weakness and back pain did have a fever prompting this consultation. On today's evaluation that is 01/21/2024, patient has been running a fever this morning temp is down to 99.2 this afternoon patient denies having any chest pain shortness of breath or cough no abdominal pain or any weakness in the legs. Patient white count normalized to 8.63 creatinine 0.91 blood culture positive for Pseudomonas Objective - Vital Signs Vital signs: Vital Signs Temp 103.2 F H 01/20/25 12:32 Pulse 103 H 01/20/25 11:30 Resp 16 01/20/25 11:30 BP 95/57 01/20/25 11:30 Pulse Ox 96 01/20/25 11:30 FiO2 Intake & Output 01/19/25 01/20/25 01/20/25 18:59 06:59 18:59 Intake Total 236 240 118 Output Total 600 1600 600 Balance -668 -7389 -669 Weight 103.5 kg 104.5 kg Intake: Oral 236 240 118 Output: Urine 600 1600 600 Other: Voiding Method Urinal Indwelling Catheter Diaper - Exam GENERAL DESCRIPTION: An elderly male lying in bed in no distress RESPIRATORY SYSTEM: Unlabored breathing , decreased breath sounds at bases HEART: S1 S2 regular rate and rhythm , ABDOMEN: Soft , no tenderness EXTREMITIES: No edema feet - Labs CBC & Chem 7: 01/20/25 06:39 01/20/25 06:39 Labs: Abnormal Lab Results - Last 24 Hours (Table) 01/19/25 01/19/25 01/19/25 Range/Units 08:43 16:18 19:19 WBC (4.50-10.00) 10*3/uL RBC (4.40-5.60) 10*6/uL Hgb (13.0-17.0) g/dL Hct (39.6-50.0) % Immature Gran # (0.00-0.04) 10*3/uL Neutrophils # (Manual) (1.3-7.7) k/uL Lymphocytes # (Manual) (1.0-4.8) k/uL Basophils # (Manual) (0-0.2) k/uL ABG pCO2 (35-45) mmHg ABG pO2 (83-108) mmHg ABG HCO3 (21-25) mmol/L ABG Total CO2 (19-24) mmol/L ABG O2 Saturation (94-97) % Hemoglobin (13.0-17.5) gm/dL Sodium (137-145) mmol/L Carbon Dioxide (22-30) mmol/L BUN (9-20) mg/dL Glucose (74-99) mg/dL POC Glucose (mg/dL) 180 H 161 H (70-110) mg/dL Plasma Lactic Acid Erik (0.7-2.0) mmol/L Calcium (8.4-10.2) mg/dL C-Reactive Protein (<1.0) mg/dL Procalcitonin 16.60 H (0.02-0.50) ng/mL Urine Protein (Negative) Urine Blood (Negative) Urine Mucus (None) /hpf 01/19/25 01/19/25 01/19/25 Range/Units 19:28 19:40 20:19 WBC 10.24 H (4.50-10.00) 10*3/uL RBC 4.07 L (4.40-5.60) 10*6/uL Hgb 12.0 L (13.0-17.0) g/dL Hct 34.7 L (39.6-50.0) % Immature Gran # (0.00-0.04) 10*3/uL Neutrophils # (Manual) 9.11 H (1.3-7.7) k/uL Lymphocytes # (Manual) (1.0-4.8) k/uL Basophils # (Manual) (0-0.2) k/uL ABG pCO2 25 L (35-45) mmHg ABG pO2 211 H (83-108) mmHg ABG HCO3 15 L (21-25) mmol/L ABG Total CO2 16 L (19-24) mmol/L ABG O2 Saturation 100.0 H (94-97) % Hemoglobin 12.1 L (13.0-17.5) gm/dL Sodium (137-145) mmol/L Carbon Dioxide (22-30) mmol/L BUN (9-20) mg/dL Glucose (74-99) mg/dL POC Glucose (mg/dL) (70-110) mg/dL Plasma Lactic Acid Erik (0.7-2.0) mmol/L Calcium (8.4-10.2) mg/dL C-Reactive Protein (<1.0) mg/dL Procalcitonin (0.02-0.50) ng/mL Urine Protein 1+ H (Negative) Urine Blood Large H (Negative) Urine Mucus Rare H (None) /hpf 01/19/25 01/19/25 01/20/25 Range/Units 20:29 20:29 06:04 WBC (4.50-10.00) 10*3/uL RBC (4.40-5.60) 10*6/uL Hgb (13.0-17.0) g/dL Hct (39.6-50.0) % Immature Gran # (0.00-0.04) 10*3/uL Neutrophils # (Manual) (1.3-7.7) k/uL Lymphocytes # (Manual) (1.0-4.8) k/uL Basophils # (Manual) (0-0.2) k/uL ABG pCO2 (35-45) mmHg ABG pO2 (83-108) mmHg ABG HCO3 (21-25) mmol/L ABG Total CO2 (19-24) mmol/L ABG O2 Saturation (94-97) % Hemoglobin (13.0-17.5) gm/dL Sodium 130 L (137-145) mmol/L Carbon Dioxide 16 L (22-30) mmol/L BUN 34 H (9-20) mg/dL Glucose 189 H (74-99) mg/dL POC Glucose (mg/dL) 170 H (70-110) mg/dL Plasma Lactic Acid Erik 3.7 H* (0.7-2.0) mmol/L Calcium 8.1 L (8.4-10.2) mg/dL C-Reactive Protein (<1.0) mg/dL Procalcitonin (0.02-0.50) ng/mL Urine Protein (Negative) Urine Blood (Negative) Urine Mucus (None) /hpf 01/20/25 01/20/25 01/20/25 Range/Units 06:39 06:39 11:30 WBC (4.50-10.00) 10*3/uL RBC 3.38 L (4.40-5.60) 10*6/uL Hgb 9.9 L D (13.0-17.0) g/dL Hct 29.3 L (39.6-50.0) % Immature Gran # 0.13 H (0.00-0.04) 10*3/uL Neutrophils # (Manual) (1.3-7.7) k/uL Lymphocytes # (Manual) 0.86 L (1.0-4.8) k/uL Basophils # (Manual) 0.26 H (0-0.2) k/uL ABG pCO2 (35-45) mmHg ABG pO2 (83-108) mmHg ABG HCO3 (21-25) mmol/L ABG Total CO2 (19-24) mmol/L ABG O2 Saturation (94-97) % Hemoglobin (13.0-17.5) gm/dL Sodium 135 L (137-145) mmol/L Carbon Dioxide 19 L (22-30) mmol/L BUN 30 H (9-20) mg/dL Glucose 145 H (74-99) mg/dL POC Glucose (mg/dL) 155 H (70-110) mg/dL Plasma Lactic Acid Erik (0.7-2.0) mmol/L Calcium 7.6 L (8.4-10.2) mg/dL C-Reactive Protein 22.2 H (<1.0) mg/dL Procalcitonin (0.02-0.50) ng/mL Urine Protein (Negative) Urine Blood (Negative) Urine Mucus (None) /hpf Assessment and Plan (1) Back pain Current Visit: Yes Status: Acute Code(s): M54.9 - DORSALGIA, UNSPECIFIED SNOMED Code(s): 448946789 (2) SIRS (systemic inflammatory response syndrome) Current Visit: No Status: Acute Code(s): R65.10 - SIRS OF NON-INFECTIOUS ORIGIN W/O ACUTE ORGAN DYSFUNCTION SNOMED Code(s): 834682221 (3) Bacteremia due to Pseudomonas Current Visit: No Status: Acute Code(s): R78.81 - BACTEREMIA; B96.5 - PSEUDOMONAS (MALLEI) CAUSING DISEASES [facility] SNOMED Code(s): 1908948910 Plan: 1patient presented to hospital with weakness lightheadedness and near syncopal episode has also been complaining of lower back pain with no history of any trauma no start running a fever did have mild elevated white count concerning for possible lumbosacral spinal disease responsible for this fever 2-patient was not taken for MRI of the lumbosacral spine with contrast this morning because of the fever Motrin has been added to his antipyretic regime and should have his MRI completed tomorrow morning this was discussed with the nursing staff 3-patient blood culture positive for Pseudomonas patient to be treated with cefepime blood culture repeated document clearance discontinue vancomycin prognosis guarded Dictation was produced using [employer] dictation software. please excuse any grammatical, word or spelling errors. Time with Patient: Less than 30
[2025-01-20] MEDS ORDERED: HEPARIN SODIUM 1,000 UN/ML (10ML VL) IV PRN (15:50)
--- NOTE | 2025-01-20 15:59 | P.PN ---
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 Associated close nonspecific dizziness but no headache. No specific limb weakness or numbness or blurred vision or double vision He has some vision problems and he follow-up with Dr. partida He denies chest pain or dyspnea. No other specific GI/ symptoms He has mild headache about 2-3/10 on the right side He states that recently he has been treated for UTI however he denies any urinary symptoms and urinalysis is negative. Vital stable afebrile. Is mildly tachycardic with heart rate 102. CBC BMP LFT and liver enzymes were unremarkable. Troponin is negative less than 0.012. Urinalysis normal. Chest x-ray showing no acute cardiopulmonary process EKG showing sinus tachycardia congestion with no significant ST-T changes but there is multiple PVCs. He was started on aspirin 325 mg admitted with cardiology team consult Patient currently complains from spasm in his lower back that comes severely for a few seconds before letting go 01/19 Patient awake alert not in distress today. He feels better he says he can get up today compared to yesterday but he still complaining from back pain His back pain looks better than yesterday like 10/19 however once he try to move his leg even with little bend of the knee he developed severe pain in the lower back. No chest pain dyspnea or abdominal pain or tenderness.. He spiked a fever 104 overnight. Labs from yesterday showing WBC 10.2 hemoglobin 12.7. INR 1.1. Potassium is 4.4 creatinine 1.07. Patient still getting normal saline 75 mL/h. He is on Dilaudid for pain control also he is on aspirin Eliquis and Pepcid 01/20 Patient clinically the same, awake alert complaining from severe low back pain. Dilaudid 0.5 mg was not enough we will increase the dose to 1 mg. No chest pain no headache or dizziness no other new complaints. He is currently on antibiotic IV vancomycin and cefepime. Also infectious disease team following closely. Blood culture is coming back positive pending sensitivity and further evaluation. Because of spine infection is suspected. Patient may require procedure we going to hold Eliquis starting tonight. He got dose this morning. We are going to start bridging heparin tonight. Patient received boluses of normal saline, hypotension improved, creatinine function is stable. MRI of the spine with and without contrast ordered by infectious disease team. Is going to be done tonight however because of his fever it was held this afternoon. We are treating his fever aggressively with Tylenol, ibuprofen ordered and cooling blanket. Blood pressure is also monitored closely and discussed with the staff to give boluses if required. Active Medications Generic Name Dose Route Start Last Admin Trade Name Freq PRN Reason Stop Dose Admin Acetaminophen 1,000 mg 01/18/25 12:22 01/20/25 10:10 Acetaminophen Tab 500 Mg Tab PO 1,000 mg Q6H PRN Administration Pain Hydrocodone Bitart/Acetaminophen 1 each 01/18/25 12:23 01/19/25 12:24 Hydrocodone/Apap 5-325mg 1 Each Tab PO 1 each Q6HR PRN Administration Pain Aspirin 81 mg 01/19/25 09:00 01/20/25 08:51 Aspirin 81 Mg PO 81 mg DAILY@0900 KORINA Administration Atorvastatin Calcium 40 mg 01/19/25 09:00 01/20/25 08:51 Atorvastatin 40 Mg Tab PO 40 mg DAILY@0900 KORINA Administration Famotidine 20 mg 01/18/25 21:00 01/20/25 08:51 Famotidine 20 Mg/2 Ml Vial IV 20 mg Q12HR KORINA Administration Heparin Sodium (Porcine) 8,360 unit 01/20/25 22:00 Heparin Sodium 1,000 Un/Ml (10ml Vl) 80 unit/kg (8360 unit) 01/20/25 22:01 IV ONCE ONE Heparin Sodium (Porcine) 0 unit 01/20/25 15:50 Heparin Sodium 1,000 Un/Ml (10ml Vl) IV PER PROTOCOL PRN Low PTT Protocol Hydromorphone HCl 0.5 mg 01/18/25 12:19 Hydromorphone 0.5 Mg/0.5 Ml Syringe IVP Q6HR PRN Pain Hydromorphone HCl 1 mg 01/20/25 09:41 01/20/25 09:46 Hydromorphone 1 Mg/Ml 1 Ml Syringe IVP 1 mg Q6HR PRN Administration Severe Pain (Scale 7 to 10) Sodium Chloride 1,000 mls @ 100 mls/hr 01/18/25 12:00 01/20/25 03:30 Saline 0.9% IV Not Given .Q10H [facility] Cefepime HCl 2 gm/ Sodium 100 mls @ 25 mls/hr 01/20/25 23:00 Chloride IVPB Q8H [facility] Protocol Heparin Sodium/Sodium Chloride 250 mls @ 18.81 mls/hr 01/20/25 22:30 25,000 unit/ Sodium Chloride IV .[id number] [facility] Protocol 18 UNITS/KG/HR Ibuprofen 600 mg 01/20/25 12:56 01/20/25 14:28 Ibuprofen 600 Mg Tab PO 600 mg TID PRN Administration Fever Insulin Human Lispro 0 unit 01/19/25 12:30 01/20/25 14:26 Insulin Lispro (Humalog) 100 Unit/Ml 10 Ml Vl SQ Not Given ACHS [facility] Protocol Isosorbide Mononitrate 30 mg 01/21/25 09:00 Isosorbide Mononitrate Er 30 Mg Tab.Er.24h PO DAILY@0900 [facility] Levothyroxine Sodium 50 mcg 01/19/25 09:00 01/20/25 08:51 Levothyroxine 50 Mcg Tab PO 50 mcg DAILY@0900 [facility] Administration Losartan Potassium 50 mg 01/20/25 12:45 01/20/25 14:57 Losartan 50 Mg Tab PO Not Given DAILY [facility] Metoprolol Tartrate 50 mg 01/18/25 21:00 01/20/25 08:50 Metoprolol Tartrate 50 Mg Tab PO 50 mg BID [facility] Administration Miscellaneous Information 1 each 01/18/25 12:25 Magnesium Replacement Protocol 1 Each Misc MISCELLANE DAILY PRN Per Protocol Protocol Naloxone HCl 0.2 mg 01/18/25 11:48 Naloxone 0.4 Mg/Ml 1 Ml Vial IV Q2M PRN Opioid Reversal Nitroglycerin 0.4 mg 01/18/25 12:22 Nitroglycerin Sl Tabs 0.4 Mg Tab SUBLINGUAL Q5M PRN Chest Pain Objective - Vital Signs Vital signs: Vital Signs Temp 102.6 F H 01/20/25 11:36 Pulse 103 H 01/20/25 11:30 Resp 16 01/20/25 11:30 BP 95/57 01/20/25 11:30 Pulse Ox 96 01/20/25 11:30 FiO2 Intake & Output 01/19/25 01/20/25 01/20/25 18:59 06:59 18:59 Intake Total 236 240 118 Output Total 600 1600 600 Balance -496 -8315 -823 Weight 103.5 kg 104.5 kg Intake: Oral 236 240 118 Output: Urine 600 1600 600 Other: Voiding Method Urinal Indwelling Catheter Diaper - Exam -GENERAL: The patient is alert and oriented x3, not in any acute distress. Well developed, well nourished. Obese HEENT: Pupils are round and equally reacting to light. EOMI. No scleral icterus. No conjunctival pallor. Normocephalic, atraumatic. No pharyngeal erythema. No thyromegaly. CARDIOVASCULAR: S1 and S2 present. No murmurs, rubs, or gallops. PULMONARY: Chest is clear to auscultation, no wheezing , no crackles. ABDOMEN: Soft, nontender, nondistended, normoactive bowel sounds. No palpable organomegaly. MUSCULOSKELETAL: No joint swelling or deformity. EXTREMITIES: No cyanosis, clubbing, or pedal edema. NEUROLOGICAL: Gross neurological examination did not reveal any focal deficits. SKIN: No rashes. no petechiae. - Labs CBC & Chem 7: 01/20/25 06:39 01/20/25 06:39 Labs: Abnormal Lab Results - Last 24 Hours (Table) 01/19/25 01/19/25 01/19/25 Range/Units 08:43 16:18 19:19 WBC (4.50-10.00) 10*3/uL RBC (4.40-5.60) 10*6/uL Hgb (13.0-17.0) g/dL Hct (39.6-50.0) % Immature Gran # (0.00-0.04) 10*3/uL Neutrophils # (Manual) (1.3-7.7) k/uL Lymphocytes # (Manual) (1.0-4.8) k/uL Basophils # (Manual) (0-0.2) k/uL ABG pCO2 (35-45) mmHg ABG pO2 (83-108) mmHg ABG HCO3 (21-25) mmol/L ABG Total CO2 (19-24) mmol/L ABG O2 Saturation (94-97) % Hemoglobin (13.0-17.5) gm/dL Sodium (137-145) mmol/L Carbon Dioxide (22-30) mmol/L BUN (9-20) mg/dL Glucose (74-99) mg/dL POC Glucose (mg/dL) 180 H 161 H (70-110) mg/dL Plasma Lactic Acid Erik (0.7-2.0) mmol/L Calcium (8.4-10.2) mg/dL C-Reactive Protein (<1.0) mg/dL Procalcitonin 16.60 H (0.02-0.50) ng/mL Urine Protein (Negative) Urine Blood (Negative) Urine Mucus (None) /hpf 01/19/25 01/19/25 01/19/25 Range/Units 19:28 19:40 20:19 WBC 10.24 H (4.50-10.00) 10*3/uL RBC 4.07 L (4.40-5.60) 10*6/uL Hgb 12.0 L (13.0-17.0) g/dL Hct 34.7 L (39.6-50.0) % Immature Gran # (0.00-0.04) 10*3/uL Neutrophils # (Manual) 9.11 H (1.3-7.7) k/uL Lymphocytes # (Manual) (1.0-4.8) k/uL Basophils # (Manual) (0-0.2) k/uL ABG pCO2 25 L (35-45) mmHg ABG pO2 211 H (83-108) mmHg ABG HCO3 15 L (21-25) mmol/L ABG Total CO2 16 L (19-24) mmol/L ABG O2 Saturation 100.0 H (94-97) % Hemoglobin 12.1 L (13.0-17.5) gm/dL Sodium (137-145) mmol/L Carbon Dioxide (22-30) mmol/L BUN (9-20) mg/dL Glucose (74-99) mg/dL POC Glucose (mg/dL) (70-110) mg/dL Plasma Lactic Acid Erik (0.7-2.0) mmol/L Calcium (8.4-10.2) mg/dL C-Reactive Protein (<1.0) mg/dL Procalcitonin (0.02-0.50) ng/mL Urine Protein 1+ H (Negative) Urine Blood Large H (Negative) Urine Mucus Rare H (None) /hpf 01/19/25 01/19/25 01/20/25 Range/Units 20:29 20:29 06:04 WBC (4.50-10.00) 10*3/uL RBC (4.40-5.60) 10*6/uL Hgb (13.0-17.0) g/dL Hct (39.6-50.0) % Immature Gran # (0.00-0.04) 10*3/uL Neutrophils # (Manual) (1.3-7.7) k/uL Lymphocytes # (Manual) (1.0-4.8) k/uL Basophils # (Manual) (0-0.2) k/uL ABG pCO2 (35-45) mmHg ABG pO2 (83-108) mmHg ABG HCO3 (21-25) mmol/L ABG Total CO2 (19-24) mmol/L ABG O2 Saturation (94-97) % Hemoglobin (13.0-17.5) gm/dL Sodium 130 L (137-145) mmol/L Carbon Dioxide 16 L (22-30) mmol/L BUN 34 H (9-20) mg/dL Glucose 189 H (74-99) mg/dL POC Glucose (mg/dL) 170 H (70-110) mg/dL Plasma Lactic Acid Erik 3.7 H* (0.7-2.0) mmol/L Calcium 8.1 L (8.4-10.2) mg/dL C-Reactive Protein (<1.0) mg/dL Procalcitonin (0.02-0.50) ng/mL Urine Protein (Negative) Urine Blood (Negative) Urine Mucus (None) /hpf 01/20/25 01/20/25 01/20/25 Range/Units 06:39 06:39 11:30 WBC (4.50-10.00) 10*3/uL RBC 3.38 L (4.40-5.60) 10*6/uL Hgb 9.9 L D (13.0-17.0) g/dL Hct 29.3 L (39.6-50.0) % Immature Gran # 0.13 H (0.00-0.04) 10*3/uL Neutrophils # (Manual) (1.3-7.7) k/uL Lymphocytes # (Manual) 0.86 L (1.0-4.8) k/uL Basophils # (Manual) 0.26 H (0-0.2) k/uL ABG pCO2 (35-45) mmHg ABG pO2 (83-108) mmHg ABG HCO3 (21-25) mmol/L ABG Total CO2 (19-24) mmol/L ABG O2 Saturation (94-97) % Hemoglobin (13.0-17.5) gm/dL Sodium 135 L (137-145) mmol/L Carbon Dioxide 19 L (22-30) mmol/L BUN 30 H (9-20) mg/dL Glucose 145 H (74-99) mg/dL POC Glucose (mg/dL) 155 H (70-110) mg/dL Plasma Lactic Acid Erik (0.7-2.0) mmol/L Calcium 7.6 L (8.4-10.2) mg/dL C-Reactive Protein 22.2 H (<1.0) mg/dL Procalcitonin (0.02-0.50) ng/mL Urine Protein (Negative) Urine Blood (Negative) Urine Mucus (None) /hpf Assessment and Plan Assessment: Severe sepsis with fever and leukocytosis, elevated lactic acid improved Recurrent syncope and falling, last few seconds with no seizure activity Fever of unknown origin Acute lower back pain Generalized weakness Severe low back pain, rule out spinal vertebral column infection like epidural abscess osteomyelitis versus others Hypomagnesemia Dehydration A-fib with mild RVR Hypertension Hyperlipidemia Coronary disease status post stent AAA Plan: Continue with antibiotic IV vancomycin and cefepime. Follow-up blood culture results Continue with aggressive fluid resuscitation. Infectious disease team consult Follow-up MRI of the spine Cardiology team consult Resume Eliquis and aspirin. Eliquis was held and switched to heparin drip Continue with normal sinus 100 beats per hour Check orthostatic vitals Pain management with Dilaudid [place] and Tylenol consult neurology service Replace magnesium per protocol and monitor closely Labs and medication were reviewed.. Continue same treatment. Continue with symptomatic treatment. Resume home medication. Monitor labs and vitals. DVT and GI prophylaxis. Further recommendations as per clinical course of the patient DVT prophylaxis: Heparin drip GI Prophylaxis: Pepcid PT/OT: Pending Prognosis is guarded
[2025-01-20 16:12] LABS: Glucose,Whole Blood 148 mg/dL (70-110)
[2025-01-20] MEDS: SODIUM CHLORIDE 0.9% 500 ML 500 ML IV ONE (16:15)
[2025-01-20 16:40] LABS: Glucose,Whole Blood 140 mg/dL (70-110)
[2025-01-20] MEDS: NOREPINEPHRINE 8 MG in SODIUM CHLORIDE 0.9% 250 ML IV SCH (16:50)
[2025-01-20] MEDS: SODIUM CHLORIDE 0.9% 1,000 ML IV SCH (16:55)
[2025-01-20 16:59] LABS: HCT 25.2 % (39.6-50.0); HGB 8.6 g/dL (13.0-17.0); MCH 29.6 pg (27.0-32.0); MCHC 34.1 g/dL (32.0-37.0); MCV 86.6 fL (80.0-97.0); Platelet Count 142 10*3/uL (140-440); RBC 2.91 10*6/uL (4.40-5.60); RDW 14.0 % (11.5-14.5); WBC 12.56 10*3/uL (4.50-10.00)
[2025-01-20 17:03] LABS: INR 1.3 (<1.2); Partial Thromboplastin Time 30.6 sec (22.0-30.0); Prothrombin Time 13.7 sec (10.0-12.5)
[2025-01-20 17:32] LABS: Eosinophils # (M) 0.13 k/uL (0-0.7); Lymphocytes # (M) 0.25 k/uL (1.0-4.8); Monocytes # (M) 0.50 k/uL (0-1.0); Neutrophils # (M) 11.68 k/uL (1.3-7.7); Neutrophils % (M) 83 %; Total Cells Counted 100
[2025-01-20] MEDS: HEPARIN SODIUM 1,000 UN/ML (10ML VL) IV ONE (21:05)
[2025-01-20 21:14] LABS: Glucose,Whole Blood 314 mg/dL (70-110)
[2025-01-20] MEDS: HEPARIN SOD,PORK IN 0.45% NACL 25,000 UNIT in 0.45% NACL 1 250ML.BAG IV SCH (22:22)
[2025-01-20] MEDS: CEFEPIME 2 GM in SODIUM CHLORIDE 0.9% 100 ML IVPB SCH (23:01)
[2025-01-21 06:07] LABS: HCT 26.8 % (39.6-50.0); HGB 9.0 g/dL (13.0-17.0); MCH 29.0 pg (27.0-32.0); MCHC 33.6 g/dL (32.0-37.0); MCV 86.5 fL (80.0-97.0); Platelet Count 130 10*3/uL (140-440); RBC 3.10 10*6/uL (4.40-5.60); RDW 14.1 % (11.5-14.5); WBC 7.19 10*3/uL (4.50-10.00)
[2025-01-21 06:59] LABS: African American GFR (CKD) >90 (>60 ml/min/1.73 sqM); Anion Gap 8 mmol/L; Blood Urea Nitrogen 29 mg/dL (9-20); Calcium 7.7 mg/dL (8.4-10.2); Carbon Dioxide 19 mmol/L (22-30); Chloride 108 mmol/L (98-107); Glucose 102 mg/dL (74-99); Magnesium 1.8 mg/dL (1.6-2.3); Non-African American GFR(CKD) 81 (>60 ml/min/1.73 sqM); Potassium 3.6 mmol/L (3.5-5.1); Sodium 135 mmol/L (137-145)
--- NOTE | 2025-01-21 07:01 | XR ---
EXAMINATION TYPE: XR chest 1V portable DATE OF EXAM: 01/21/2025 COMPARISON: 01/19/2025 CLINICAL INDICATION: Male, 84 years old with history of cough; TECHNIQUE: Single frontal view of the chest is obtained. FINDINGS: No change in the cardiomegaly and diffuse interstitial opacity likely representing mild CHF or fluid volume overload. There is no airspace consolidation. There is no large pleural effusion. There is no pneumothorax. IMPRESSION: No change in the acute cardiopulmonary process possibly indicating volume overload or CHF. [facility], , 01/21/2025 6:59 AM
[2025-01-21] MEDS ORDERED: Potassium Replacement Protocol 1 EACH MISC MISCELLANE PRN (07:06)
[2025-01-21 07:21] LABS: Eosinophils # (M) 0.14 k/uL (0-0.7); Lymphocytes # (M) 0.72 k/uL (1.0-4.8); Monocytes # (M) 0.22 k/uL (0-1.0); Neutrophils # (M) 6.11 k/uL (1.3-7.7); Neutrophils % (M) 63 %; Total Cells Counted 100
--- NOTE | 2025-01-21 08:36 | MR ---
EXAMINATION TYPE: MR lumbar spine wo/w con DATE OF EXAM: 01/21/2025 8:00 AM COMPARISON: None. CLINICAL INDICATION: Male, 84 years old with history of Fever , back pain, Low back pain, fever IV Contrast: 10 cc Gadobutrol (None if empty) TECHNIQUE: Multiplanar, multisequence images of the lumbar spine were acquired without and with 10 mL intravenou s Gadobutrol gadolinium contrast. Findings: The lumbar vertebral segments are normal in height. There is a slight grade 1 anterolisthesis of L5 o n S1. There is mild to moderate multilevel degenerative disease from L1 through S1 where there is mild disc space narrowing, spondylosis and loss of signal intensity as well as circumferential disc bulge. There is a mild central broad-based disc protrusion of the L2-3 disc and in combination with mild to moderate thickening of ligamentum flavum,there is a mild spinal stenosis At the L3-4 level, there is a moderate right paracentral disc herniation resulting in severe spinal stenosis and right lateral recess stenosis. At the L4-5 level secondary to moderate facet hypertrophy, circumferential disc bulge and thickening of the ligamentum flavum, there is severe spinal stenosis. There is mild neural foraminal stenosis at the L4-5 and L5-S1 levels on the left.. IMPRESSION: 1. Grade 1 anterolisthesis of L5 on S1. 2. 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 3. Moderate L3-4 right paracentral disc herniation. 4. Severe spinal stenosis at the L3-4 and L4-5 levels. 5. Mild neural foraminal stenosis at L4-5 and L5-S1 levels on the left. [facility], , 01/21/2025 8:34 AM
[2025-01-21] MEDS: POTASSIUM CHLORIDE ER 20 MEQ TAB.ER PO SCH (08:46)
[2025-01-21] MEDS: MAGNESIUM SULFATE-D5W PMX 1 GM in DEXTROSE/WATER 1 100ML.BAG IVPB ONE (09:03)
--- NOTE | 2025-01-21 10:19 | P.CNPUL ---
History of Present Illness Consult date: 01/21/25 Requesting physician: Femi E Ld Reason for consult: other (Critical care management) Chief complaint: Generalized weakness, syncope History of present illness: This is an 84-year-old male patient with a known history of diabetes mellitus, hyperlipidemia, hypertension, carotid artery disease status post stent in 2021, coronary disease status post intervention in 2003, persistent atrial fib rillation. He presented here to the emergency room on January 18, 2025 with complaints of dizziness lightheadedness possible syncopal episode and generalized weakness. He had a rapid response team called on him on January 18 and again on January 19, 2025 for hypotension and high fevers. He was subsequently transferred here to the intensive care unit where he is seen in consultation today. Chest x-ray shows cardiomegaly and diffuse interstitial opacity mild fluid volume overload. EKG reveals atrial fibrillation with a controlled ventricular response. White count 7.1. Hemoglobin 9.0. Platelets 130. Sodium 135. Potassium 3.6. Bicarb 19. BUN 29. Creatinine 0.87. Glucose 102. Stool for occult blood is positive. Blood cultures showing gram-negative bacilli. He is currently on a heparin drip. Antibiotics in the form of cefepime. He was briefly on norepinephrine for blood pressure support. Current mean arterial pressures in the mid to upper 60s. He is resting in bed. Maintaining O2 saturations in the 90s to 100 on 2 L/min per nasal cannula. He is currently afebrile. The plan is for an MRI of the spine today looking for source of infection. Review of Systems REVIEW OF SYSTEMS: CONSTITUTIONAL: Positive for generalized weakness, dizziness. EYES: Denies change in vision. EARS, NOSE, MOUTH, THROAT: Denies headaches, denies sore throat. CARDIOVASCULAR: Denies chest pain, palpitations. Positive for syncopal episode. RESPIRATORY: Denies shortness of breath, cough, congestion or hemoptysis. GASTROINTESTINAL: Denies change in appetite, denies abdominal pain GENITOURINARY: Denies hematuria, denies infections. MUSKULOSKELETAL: Denies pain, denies swelling. INTEGUMENTARY: Denies rash, denies eczema. NEUROLOGICAL: Denies recent memory loss, no recent seizure activity. PSYCHIATRIC: Denies anxiety, denies depression. HEMATOLOGIC/LYMPHATIC: Denies anemia, denies enlarged lymph nodes. Past Medical History Past Medical History: Atrial Fibrillation, Coronary Artery Disease (CAD), Diabetes Mellitus, Hyperlipidemia, Hypertension, Syncope, Thyroid Disorder Additional Past Medical History / Comment(s): cardiac stents, carotid stent, AAA (states Dr is watching), hx kidney stones, hx of colon polyps, kidney infection History of Any Multi-Drug Resistant Organisms: None Reported Past Surgical History: Heart Catheterization With Stent, Tonsillectomy Additional Past Surgical History / Comment(s): 6 stents, charity cataracts Past Anesthesia/Blood Transfusion Reactions: No Reported Reaction Date of Last Stent Placement:: unknown Smoking Status: Former smoker - Past Family History Mother Family Medical History: No Reported History Medications and Allergies Home Medications Medication Instructions Recorded Confirmed Type Aspirin EC [Ecotrin Low Dose] 81 mg PO DAILY@0900 10/30/16 01/18/25 History Isosorbide Mononitrate ER [Imdur] 60 mg PO DAILY@0900 10/30/16 01/18/25 History Nitroglycerin Sl Tabs [Nitrostat] 0.4 mg SL Q5M PRN 10/30/16 01/18/25 History Omeprazole 20 mg PO HS@1800 10/30/16 01/18/25 History Levothyroxine Sodium [Synthroid] 50 mcg PO DAILY@0900 01/13/18 01/18/25 History Niacin (Inositol Niacinate) 500 mg PO HS@1800 10/19/20 01/18/25 History [Niacin 500 mg Capsule] Apixaban [Eliquis] 5 mg PO BID@0900,1800 09/26/24 01/18/25 History Atorvastatin [Lipitor] 40 mg PO DAILY@0900 09/26/24 01/18/25 History Dulaglutide [Trulicity] 0.75 mg SQ TH@0900 09/26/24 01/18/25 History Metoprolol Tartrate [Lopressor] 50 mg PO BID #60 tab 10/03/24 01/18/25 Rx Acetaminophen Tab [Tylenol Tab] 1,000 mg PO Q6H PRN 01/18/25 01/18/25 History Allergies Allergy/AdvReac Type Severity Reaction Status Date / Time No Known Allergies Allergy Verified 01/18/25 10:49 Physical Exam Vitals: Vital Signs Temp Pulse Pulse Resp BP BP Pulse Ox 01/21/25 06:00 60 17 96/52 100 01/21/25 05:45 64 17 89/55 100 01/21/25 05:30 60 18 116/59 100 01/21/25 05:15 57 L 19 96/54 100 01/21/25 05:00 60 17 93/50 100 01/21/25 04:45 62 15 93/50 100 01/21/25 04:30 61 18 107/54 100 01/21/25 04:15 61 22 105/55 100 01/21/25 04:00 96.9 F L 60 23 116/56 100 01/21/25 03:45 63 22 124/66 96 01/21/25 03:30 62 23 117/71 100 01/21/25 03:15 62 18 105/57 100 01/21/25 03:00 52 L 18 112/53 100 01/21/25 02:45 52 L 18 99/51 100 01/21/25 02:30 57 L 17 111/56 100 01/21/25 02:15 53 L 11 L 104/58 99 01/21/25 02:00 57 L 20 115/55 99 01/21/25 01:45 60 18 113/56 100 01/21/25 01:30 61 18 98/53 100 01/21/25 01:15 51 L 19 107/59 100 01/21/25 01:00 51 L 16 108/52 100 01/21/25 00:45 51 L 17 104/53 100 01/21/25 00:30 61 22 100/53 99 01/21/25 00:15 52 L 23 97/53 100 01/21/25 00:00 98.5 F 53 L 18 101/53 100 01/20/25 23:45 52 L 14 99/52 100 01/20/25 23:30 55 L 19 105/53 100 01/20/25 23:15 55 L 17 106/57 100 01/20/25 23:00 68 21 124/55 100 01/20/25 22:00 60 24 111/72 100 01/20/25 21:00 68 20 91/51 100 01/20/25 20:00 97.8 F 68 14 122/64 100 01/20/25 19:00 72 18 113/55 99 01/20/25 18:50 71 16 111/60 98 01/20/25 18:40 78 18 105/56 100 01/20/25 18:30 72 13 109/52 100 01/20/25 18:20 74 10 L 115/71 99 01/20/25 18:10 71 16 111/58 100 01/20/25 18:00 97.6 F 74 15 107/74 99 01/20/25 17:50 75 17 110/56 99 01/20/25 17:40 75 11 L 112/60 100 01/20/25 17:30 75 16 134/60 98 01/20/25 17:20 80 14 102/57 100 01/20/25 17:10 65 19 79/45 100 01/20/25 17:00 65 18 75/46 100 01/20/25 16:50 66 18 78/54 100 01/20/25 16:40 97.9 F 66 13 99 01/20/25 16:38 113/90 01/20/25 15:58 70/35 01/20/25 15:56 99.5 F 70 14 74/40 98 01/20/25 14:56 99.2 F 01/20/25 14:25 102.2 F H 01/20/25 12:47 102.9 F H 01/20/25 12:41 103.5 F H 01/20/25 12:32 103.2 F H 01/20/25 11:36 102.6 F H 01/20/25 11:30 101.9 F H 103 H 16 95/57 96 01/20/25 10:14 99.4 F 01/20/25 10:13 147/70 Intake and Output 01/20/25 01/21/25 01/21/25 22:59 06:59 14:59 Intake Total 5862.894 2145.099 250 Output Total 470 300 99 Balance 1280.342 951.099 151 Intake: IV 1625 1000 200 Cefepime 2 gm In Sodium 100 Chloride 0.9% 100 ml @ 25 mls/hr IVPB Q8H [facility] Rx#: [id number] Magnesium Sulfate-D5w Pmx 100 1 gm In Dextrose/Water 1 100ml.bag @ 100 mls/hr IVPB ONCE ONE Rx#: [id number] Sodium Chloride 0.9% 1, 625 1000 000 ml @ 125 mls/hr IV . Q8H [facility] Rx#:[id number] Sodium Chloride 0.9% 500 500 ml 500 ml @ 999 mls/hr IV .Q31M ONE Rx#:[id number] Vancomycin 1,750 mg In 500 Sodium Chloride 0.9% 500 ml 500 ml @ 167 mls/hr IVPB Q16H [facility] Rx#: [id number] Intake, IV Titration 25.342 251.099 Amount Cefepime 2 gm In Sodium 100 Chloride 0.9% 100 ml @ 25 mls/hr IVPB Q8H [facility] Rx#: [id number] Heparin Sod,Pork in 0.45% 146.718 NaCl 25,000 unit In 0.45 % NaCl 1 250ml.bag @ 18 UNITS/KG/HR 18.81 mls/hr IV .[id number] [facility] Rx#: [id number] Norepinephrine 8 mg In 25.342 4.381 Sodium Chloride 0.9% 250 ml @ 0.05 MCG/KG/MIN 10. 11 mls/hr IV .Q24H [facility] Rx #:[id number] Oral 100 50 Output: Urine 470 300 99 Other: Voiding Method Indwelling Catheter Indwelling Catheter # Voids 1 # Bowel Movements 1 Weight 114.6 kg GENERAL EXAM: Alert, weak obese 84-year-old male, on 2 L nasal cannula, fairly comfortable in no apparent distress. HEAD: Normocephalic. EYES: Normal reaction of pupils, equal size. NOSE: Clear with pink turbinates. THROAT: No erythema or exudates. NECK: No masses, no JVD. CHEST: No chest wall deformity. LUNGS: Equal air entry with no crackles, wheeze, rhonchi or dullness. CVS: S1 and S2 normal with no audible murmur, regular rhythm. ABDOMEN: No hepatosplenomegaly, normal bowel sounds, no guarding or rigidity. SPINE: No scoliosis or deformity SKIN: No rashes CENTRAL NERVOUS SYSTEM: No focal deficits, tone is normal in all 4 extremities. EXTREMITIES: There is no peripheral edema. No clubbing, no cyanosis. Peripheral pulses are intact. Results - Laboratory Findings CBC and BMP: 01/21/25 05:20 01/21/25 05:20 ABG ABG pH 7.40 (7.35-7.45) 01/19/25 19:28 ABG pCO2 25 mmHg (35-45) L 01/19/25 19:28 ABG pO2 211 mmHg (83-108) H 01/19/25 19:28 ABG O2 Saturation 100.0 % (94-97) H 01/19/25 19:28 PT/INR, D-dimer PT 13.7 sec (10.0-12.5) H 01/20/25 16:24 INR 1.3 (<1.2) H 01/20/25 16:24 Abnormal lab findings: Abnormal Labs 01/18/25 01/18/25 01/18/25 09:10 09:10 09:25 WBC 10.27 H RBC 4.34 L Hgb 12.7 L Hct 36.7 L Plt Count Immature Gran # 0.08 H Neutrophils # 8.95 H Neutrophils # (Manual) Lymphocytes # 0.69 L Lymphocytes # (Manual) Eosinophils # 0.00 L Basophils # (Manual) ESR 89 H PT INR APTT ABG pCO2 ABG pO2 ABG HCO3 ABG Total CO2 ABG O2 Saturation Hemoglobin Sodium Chloride Carbon Dioxide 18 L BUN 38 H Glucose 204 H POC Glucose (mg/dL) Plasma Lactic Acid Erik Calcium Magnesium 1.3 L Creatine Kinase 252 H C-Reactive Protein 18.1 H Total Protein 8.3 H Procalcitonin Urine Protein Trace H Urine Blood Urine Mucus 01/19/25 01/19/25 01/19/25 00:03 06:19 08:03 WBC RBC Hgb Hct Plt Count Immature Gran # Neutrophils # Neutrophils # (Manual) Lymphocytes # Lymphocytes # (Manual) Eosinophils # Basophils # (Manual) ESR PT INR APTT ABG pCO2 ABG pO2 ABG HCO3 ABG Total CO2 ABG O2 Saturation Hemoglobin Sodium 134 L Chloride Carbon Dioxide 18 L BUN 31 H Glucose 257 H POC Glucose (mg/dL) 156 H 229 H Plasma Lactic Acid Erik Calcium 8.3 L Magnesium 1.4 L Creatine Kinase C-Reactive Protein 19.6 H Total Protein Procalcitonin Urine Protein Urine Blood Urine Mucus 01/19/25 01/19/25 01/19/25 08:19 08:43 11:05 WBC 13.44 H RBC 3.54 L Hgb 10.6 L Hct 30.5 L Plt Count Immature Gran # 2.50 H Neutrophils # Neutrophils # (Manual) 11.42 H Lymphocytes # Lymphocytes # (Manual) Eosinophils # Basophils # (Manual) ESR PT INR APTT ABG pCO2 ABG pO2 ABG HCO3 ABG Total CO2 ABG O2 Saturation Hemoglobin Sodium Chloride Carbon Dioxide BUN Glucose POC Glucose (mg/dL) 256 H Plasma Lactic Acid Erik Calcium Magnesium Creatine Kinase C-Reactive Protein Total Protein Procalcitonin 16.60 H Urine Protein Urine Blood Urine Mucus 01/19/25 01/19/25 01/19/25 16:18 19:19 19:28 WBC RBC Hgb Hct Plt Count Immature Gran # Neutrophils # Neutrophils # (Manual) Lymphocytes # Lymphocytes # (Manual) Eosinophils # Basophils # (Manual) ESR PT INR APTT ABG pCO2 25 L ABG pO2 211 H ABG HCO3 15 L ABG Total CO2 16 L ABG O2 Saturation 100.0 H Hemoglobin 12.1 L Sodium Chloride Carbon Dioxide BUN Glucose POC Glucose (mg/dL) 180 H 161 H Plasma Lactic Acid Erik Calcium Magnesium Creatine Kinase C-Reactive Protein Total Protein Procalcitonin Urine Protein Urine Blood Urine Mucus 01/19/25 01/19/25 01/19/25 19:40 20:19 20:29 WBC 10.24 H RBC 4.07 L Hgb 12.0 L Hct 34.7 L Plt Count Immature Gran # Neutrophils # Neutrophils # (Manual) 9.11 H Lymphocytes # Lymphocytes # (Manual) Eosinophils # Basophils # (Manual) ESR PT INR APTT ABG pCO2 ABG pO2 ABG HCO3 ABG Total CO2 ABG O2 Saturation Hemoglobin Sodium Chloride Carbon Dioxide BUN Glucose POC Glucose (mg/dL) Plasma Lactic Acid Erik 3.7 H* Calcium Magnesium Creatine Kinase C-Reactive Protein Total Protein Procalcitonin Urine Protein 1+ H Urine Blood Large H Urine Mucus Rare H 01/19/25 01/20/25 01/20/25 20:29 06:04 06:39 WBC RBC 3.38 L Hgb 9.9 L D Hct 29.3 L Plt Count Immature Gran # 0.13 H Neutrophils # Neutrophils # (Manual) Lymphocytes # Lymphocytes # (Manual) 0.86 L Eosinophils # Basophils # (Manual) 0.26 H ESR 64 H PT INR APTT ABG pCO2 ABG pO2 ABG HCO3 ABG Total CO2 ABG O2 Saturation Hemoglobin Sodium 130 L Chloride Carbon Dioxide 16 L BUN 34 H Glucose 189 H POC Glucose (mg/dL) 170 H Plasma Lactic Acid Erik Calcium 8.1 L Magnesium Creatine Kinase C-Reactive Protein Total Protein Procalcitonin Urine Protein Urine Blood Urine Mucus 01/20/25 01/20/25 01/20/25 06:39 11:30 16:11 WBC RBC Hgb Hct Plt Count Immature Gran # Neutrophils # Neutrophils # (Manual) Lymphocytes # Lymphocytes # (Manual) Eosinophils # Basophils # (Manual) ESR PT INR APTT ABG pCO2 ABG pO2 ABG HCO3 ABG Total CO2 ABG O2 Saturation Hemoglobin Sodium 135 L Chloride Carbon Dioxide 19 L BUN 30 H Glucose 145 H POC Glucose (mg/dL) 155 H 148 H Plasma Lactic Acid Erik Calcium 7.6 L Magnesium Creatine Kinase C-Reactive Protein 22.2 H Total Protein Procalcitonin Urine Protein Urine Blood Urine Mucus 01/20/25 01/20/25 01/20/25 16:24 16:24 16:39 WBC 12.56 H RBC 2.91 L Hgb 8.6 L Hct 25.2 L Plt Count Immature Gran # 1.78 H Neutrophils # Neutrophils # (Manual) 11.68 H Lymphocytes # Lymphocytes # (Manual) 0.25 L Eosinophils # Basophils # (Manual) ESR PT 13.7 H INR 1.3 H APTT 30.6 H ABG pCO2 ABG pO2 ABG HCO3 ABG Total CO2 ABG O2 Saturation Hemoglobin Sodium Chloride Carbon Dioxide BUN Glucose POC Glucose (mg/dL) 140 H Plasma Lactic Acid Erik Calcium Magnesium Creatine Kinase C-Reactive Protein Total Protein Procalcitonin Urine Protein Urine Blood Urine Mucus 01/20/25 01/21/25 01/21/25 21:12 04:30 05:20 WBC RBC 3.10 L Hgb 9.0 L Hct 26.8 L Plt Count 130 L Immature Gran # 0.66 H Neutrophils # Neutrophils # (Manual) Lymphocytes # Lymphocytes # (Manual) 0.72 L Eosinophils # Basophils # (Manual) ESR PT INR APTT 78.2 H ABG pCO2 ABG pO2 ABG HCO3 ABG Total CO2 ABG O2 Saturation Hemoglobin Sodium Chloride Carbon Dioxide BUN Glucose POC Glucose (mg/dL) 314 H Plasma Lactic Acid Erik Calcium Magnesium Creatine Kinase C-Reactive Protein Total Protein Procalcitonin Urine Protein Urine Blood Urine Mucus 01/21/25 05:20 WBC RBC Hgb Hct Plt Count Immature Gran # Neutrophils # Neutrophils # (Manual) Lymphocytes # Lymphocytes # (Manual) Eosinophils # Basophils # (Manual) ESR PT INR APTT ABG pCO2 ABG pO2 ABG HCO3 ABG Total CO2 ABG O2 Saturation Hemoglobin Sodium 135 L Chloride 108 H Carbon Dioxide 19 L BUN 29 H Glucose 102 H POC Glucose (mg/dL) Plasma Lactic Acid Erik Calcium 7.7 L Magnesium Creatine Kinase C-Reactive Protein Total Protein Procalcitonin Urine Protein Urine Blood Urine Mucus - Diagnostic Findings Chest x-ray: image reviewed Assessment and Plan Assessment: Sepsis with septic shock secondary to bacteremia from gram-negative bacilli. Briefly requiring pressor support Hypotension with dizziness and near syncope secondary to above Febrile illness secondary to above Anemia with stool for occult blood positive Acute low back pain, MRI pending Atrial fibrillation anticoagulated with Eliquis, currently on pause Hypertension, history of Hyperlipidemia Coronary artery disease status post stent placement Carotid artery disease status post repair Plan: The patient was seen and evaluated Imaging, labs and medications reviewed Microbiology reviewed Blood culture positive for gram-negative bacilli Currently on vancomycin and cefepime Infectious diseases on the case Briefly required norepinephrine Currently stable and on normal saline at 125 mL/h Will decrease to 50 mL/h Continued on a heparin drip for now Could downgrade to the 3 S. Currently on oxygen at 2 L/min per nasal cannula Titrate the FiO2 as needed We will continue to follow and make further recommendations based on his clinical status I have personally seen and examined the patient, performed the documentation and the assessment and plan as written. Number of minutes spent on the visit: 20 Dictation was produced using [employer] dictation software. Please excuse any grammatical, word or spelling errors.
[2025-01-21] MEDS: ISOSORBIDE MONONITRATE ER 30 MG TAB.ER.24H PO SCH (10:36)
[2025-01-21 11:18] LABS: Glucose,Whole Blood 127 mg/dL (70-110)
[2025-01-21 12:04] LABS: Basophils # (A) 0.07 10*3/uL (0.00-0.10); Basophils % (A) 0.8 %; Eosinophils # (A) 0.18 10*3/uL (0.04-0.35); Eosinophils % (A) 2.1 %; HCT 27.6 % (39.6-50.0); HGB 9.6 g/dL (13.0-17.0); Lymphocytes # (A) 0.72 10*3/uL (0.90-5.00); Lymphocytes % (A) 8.3 %; MCH 29.7 pg (27.0-32.0); MCHC 34.8 g/dL (32.0-37.0); MCV 85.4 fL (80.0-97.0); Monocytes # (A) 0.35 10*3/uL (0.20-1.00); Monocytes % (A) 4.0 %; Neutrophils # (A) 7.22 10*3/uL (1.80-7.70); Neutrophils % (A) 83.5 %; Platelet Count 119 10*3/uL (140-440); RBC 3.23 10*6/uL (4.40-5.60); RDW 14.0 % (11.5-14.5); WBC 8.65 10*3/uL (4.50-10.00)
--- NOTE | 2025-01-21 13:04 | P.PN ---
Subjective Progress Note Date: 01/20/25 Patient was seen for a follow-up. Patient appears mild-moderately encephalopathic. He is getting septic, with hypotension. Patient is receiving a fluid bolus. He appears very sick. Patient is growing Pseudomonas aeruginosa in the blood. Awaiting MRI of the lumbar spine with and without contrast. Eddie saunders complaining of low back pain very severe. He appears somewhat pale. Appears sick. Objective - Vital Signs Vital signs: Vital Signs Temp 99.5 F 01/20/25 15:56 Pulse 70 01/20/25 15:56 Resp 14 01/20/25 15:56 BP 70/35 01/20/25 15:58 Pulse Ox 98 01/20/25 15:56 FiO2 Intake & Output 01/19/25 01/20/25 01/20/25 18:59 06:59 18:59 Intake Total 236 240 118 Output Total 600 1600 600 Balance -364 -1360 -482 Weight 103.5 kg 104.5 kg Intake: Oral 236 240 118 Output: Urine 600 1600 600 Other: Voiding Method Urinal Indwelling Catheter Diaper - Exam Patient appears mild to moderately encephalopathic. He does wake up, and answers appropriately, smiles. Admits to having lower back pain. Otherwise examination unchanged. - Labs CBC & Chem 7: 01/21/25 11:54 01/21/25 05:20 Labs: Abnormal Lab Results - Last 24 Hours (Table) 01/19/25 01/19/25 01/19/25 Range/Units 16:18 19:19 19:28 WBC (4.50-10.00) 10*3/uL RBC (4.40-5.60) 10*6/uL Hgb (13.0-17.0) g/dL Hct (39.6-50.0) % Immature Gran # (0.00-0.04) 10*3/uL Neutrophils # (Manual) (1.3-7.7) k/uL Lymphocytes # (Manual) (1.0-4.8) k/uL Basophils # (Manual) (0-0.2) k/uL ESR (0-20) mm/Hr ABG pCO2 25 L (35-45) mmHg ABG pO2 211 H (83-108) mmHg ABG HCO3 15 L (21-25) mmol/L ABG Total CO2 16 L (19-24) mmol/L ABG O2 Saturation 100.0 H (94-97) % Hemoglobin 12.1 L (13.0-17.5) gm/dL Sodium (137-145) mmol/L Carbon Dioxide (22-30) mmol/L BUN (9-20) mg/dL Glucose (74-99) mg/dL POC Glucose (mg/dL) 180 H 161 H (70-110) mg/dL Plasma Lactic Acid Erik (0.7-2.0) mmol/L Calcium (8.4-10.2) mg/dL C-Reactive Protein (<1.0) mg/dL Urine Protein (Negative) Urine Blood (Negative) Urine Mucus (None) /hpf 01/19/25 01/19/25 01/19/25 Range/Units 19:40 20:19 20:29 WBC 10.24 H (4.50-10.00) 10*3/uL RBC 4.07 L (4.40-5.60) 10*6/uL Hgb 12.0 L (13.0-17.0) g/dL Hct 34.7 L (39.6-50.0) % Immature Gran # (0.00-0.04) 10*3/uL Neutrophils # (Manual) 9.11 H (1.3-7.7) k/uL Lymphocytes # (Manual) (1.0-4.8) k/uL Basophils # (Manual) (0-0.2) k/uL ESR (0-20) mm/Hr ABG pCO2 (35-45) mmHg ABG pO2 (83-108) mmHg ABG HCO3 (21-25) mmol/L ABG Total CO2 (19-24) mmol/L ABG O2 Saturation (94-97) % Hemoglobin (13.0-17.5) gm/dL Sodium (137-145) mmol/L Carbon Dioxide (22-30) mmol/L BUN (9-20) mg/dL Glucose (74-99) mg/dL POC Glucose (mg/dL) (70-110) mg/dL Plasma Lactic Acid Erik 3.7 H* (0.7-2.0) mmol/L Calcium (8.4-10.2) mg/dL C-Reactive Protein (<1.0) mg/dL Urine Protein 1+ H (Negative) Urine Blood Large H (Negative) Urine Mucus Rare H (None) /hpf 01/19/25 01/20/25 01/20/25 Range/Units 20:29 06:04 06:39 WBC (4.50-10.00) 10*3/uL RBC 3.38 L (4.40-5.60) 10*6/uL Hgb 9.9 L D (13.0-17.0) g/dL Hct 29.3 L (39.6-50.0) % Immature Gran # 0.13 H (0.00-0.04) 10*3/uL Neutrophils # (Manual) (1.3-7.7) k/uL Lymphocytes # (Manual) 0.86 L (1.0-4.8) k/uL Basophils # (Manual) 0.26 H (0-0.2) k/uL ESR 64 H (0-20) mm/Hr ABG pCO2 (35-45) mmHg ABG pO2 (83-108) mmHg ABG HCO3 (21-25) mmol/L ABG Total CO2 (19-24) mmol/L ABG O2 Saturation (94-97) % Hemoglobin (13.0-17.5) gm/dL Sodium 130 L (137-145) mmol/L Carbon Dioxide 16 L (22-30) mmol/L BUN 34 H (9-20) mg/dL Glucose 189 H (74-99) mg/dL POC Glucose (mg/dL) 170 H (70-110) mg/dL Plasma Lactic Acid Erik (0.7-2.0) mmol/L Calcium 8.1 L (8.4-10.2) mg/dL C-Reactive Protein (<1.0) mg/dL Urine Protein (Negative) Urine Blood (Negative) Urine Mucus (None) /hpf 01/20/25 01/20/25 Range/Units 06:39 11:30 WBC (4.50-10.00) 10*3/uL RBC (4.40-5.60) 10*6/uL Hgb (13.0-17.0) g/dL Hct (39.6-50.0) % Immature Gran # (0.00-0.04) 10*3/uL Neutrophils # (Manual) (1.3-7.7) k/uL Lymphocytes # (Manual) (1.0-4.8) k/uL Basophils # (Manual) (0-0.2) k/uL ESR (0-20) mm/Hr ABG pCO2 (35-45) mmHg ABG pO2 (83-108) mmHg ABG HCO3 (21-25) mmol/L ABG Total CO2 (19-24) mmol/L ABG O2 Saturation (94-97) % Hemoglobin (13.0-17.5) gm/dL Sodium 135 L (137-145) mmol/L Carbon Dioxide 19 L (22-30) mmol/L BUN 30 H (9-20) mg/dL Glucose 145 H (74-99) mg/dL POC Glucose (mg/dL) 155 H (70-110) mg/dL Plasma Lactic Acid Erik (0.7-2.0) mmol/L Calcium 7.6 L (8.4-10.2) mg/dL C-Reactive Protein 22.2 H (<1.0) mg/dL Urine Protein (Negative) Urine Blood (Negative) Urine Mucus (None) /hpf Microbiology - Last 24 Hours (Table) 01/19/25 08:43 Blood Culture Gram Stain - Preliminary Blood Blood Culture - Preliminary Molecular ID Assessment and Plan Assessment: * Near syncopal spells, likely due to orthostatic hypotension versus SIRS related. Rule out other causes. * Septic shock, with hypotension. Exact source uncertain, rule out discitis osteomyelitis * Bacteremia with Pseudomonas aeruginosa * Hypertension * Diabetes * Hyperlipidemia * Atrial fibrillation, on Eliquis * Coronary artery disease * Hypothyroidism * X tobacco use Plan: * EEG was abnormal due to background slowing, suggestive of mild to moderate encephalopathy. No focal, lateralized or epileptiform activity was seen. No indication for antiepileptic medication. * Continue Eliquis for atrial fibrillation * Orthostatics not able to be checked because patient is now septic. * Await 2-D echo initiated by cardiology. * Carotid Doppler on 09/29/2024 revealed bilateral carotid stents without elevated velocities to suggest hemodynamically significant stenosis of the ICAs. Plaque is seen within the bilateral CCA extending into the ICA and ECA. Antegrade flow in both vertebral arteries. No need to repeat carotid Doppler. * Awaiting MRI of the lumbar spine for back pain as per ID. Patient could not undergo MRI today because he had high fever. * Patient currently on cefepime, whereas vancomycin has been discontinued by ID. * Patient critically sick.
--- NOTE | 2025-01-21 14:18 | P.PN ---
Subjective Progress Note Date: 01/21/25 HISTORY OF PRESENTING ILLNESS: 84-year-old with PMH of multiple medical problems presents to the hospital because of recurrent syncope, passing out over the last 3 to 4 days. Also reporting nonspecific dizziness lightheadedness, generalized weakness. He is also reporting some mild headache on the right side. Reports that recently he was treated for urinary tract infection Cardiology was consulted for syncope evaluation Admission labs hemoglobin 12.7, WBC 10.7, BUN 30, creatinine 1.07, CPK 252, tro ponins are not elevated, EKG shows atrial fibrillation heart rate 101 bpm ......................... ................................................................................ ..................................... Prior cardiac testing: He had a KATHY in 09/2024 for ruling out endocarditis and did not show significant valvular dysfunction other than mild MR mild TR. No evidence of vegetation. . ................................................................................ ............................................................. Progress note 01/20/2025 BP 160/81, repeat 181/99. I feel there is some component of supine hypertension. Therefore for this I would request a nurse to perform orthostatic vital signs. For now we will add losartan 25 mg daily 01/21/2025 Patient was transferred to ICU yesterday because of hypotension which was suspected to be because of sepsis. He is maintained on antibiotics he never required pressors and his blood pressure improved with IV fluid resuscitation. He was complaining of some back pain and he had MRI done for his back to make sure there is no seeding of infection there. Cardiac whitlock he is in persistent rate controlled atrial fibrillation and appears euvolemic. BP 121/73, heart rate 63, rate controlled A-fib Being transferred out of ICU to telemetry floor PHYSICAL EXAMINATION: Neck: Brisk carotid upstroke, no jugular venous distention. Lungs: Minimal crackles with poor inspiratory effort Heart: Irregular pulse, mild systolic murmur audible Abdomen: Soft nontender, positive bowel sounds. Extremities: No edema, intact distal pulses. Neuro: Alert, oritented, no focal deficits. Detailed neuro exam was not performed. ........ ................................................................................ ...................................................... ASSESSMENT: # Generalized weakness and lightheadedness # Questionable fall, questionable syncope # Fever likely sepsis # Failure to thrive # Persistent atrial fibrillation # CAD status post PCI at [place] in 2003 # Carotid disease status post carotid stent in [place] 2021 # Essential hypertension # Dyslipidemia # Type 2 diabetes PLAN: Obtain updated echocardiogram. Obtain orthostatic vital signs tomorrow Continue aspirin 81 mg, Eliquis 5 twice daily, Lipitor 40, metoprolol 50 twice daily Reduce losartan to 25 mg daily. Discontinue Imdur. Consider discharging with a Holter monitor to look for heart rate trends and see if there is any significant bradycardia. Telemetry in the hospital was not revealing so far Objective - Vital Signs Vital signs: Vital Signs Temp 97.5 F L 01/21/25 13:45 Pulse 59 L 01/21/25 13:45 Resp 16 01/21/25 13:45 BP 121/73 01/21/25 13:45 Pulse Ox 98 01/21/25 13:45 FiO2 Intake & Output 01/20/25 01/21/25 01/21/25 18:59 06:59 18:59 Intake Total 3920.503 7911.767 250 Output Total 800 570 549 Balance 260.465 5771.767 -299 Weight 114.6 kg Intake: IV 1125 1500 200 Cefepime 2 gm In Sodium 100 Chloride 0.9% 100 ml @ 25 mls/hr IVPB Q8H [facility] Rx#: [id number] Magnesium Sulfate-D5w Pmx 100 1 gm In Dextrose/Water 1 100ml.bag @ 100 mls/hr IVPB ONCE ONE Rx#: [id number] Sodium Chloride 0.9% 1, 125 1500 000 ml @ 50 mls/hr IV . Q20H [facility] Rx#:[id number] Sodium Chloride 0.9% 500 500 ml 500 ml @ 999 mls/hr IV .Q31M [facility] Rx#:[id number] Vancomycin 1,750 mg In 500 Sodium Chloride 0.9% 500 ml 500 ml @ 167 mls/hr IVPB Q16H [facility] Rx#: [id number] Intake, IV Titration 0.674 275.767 Amount Cefepime 2 gm In Sodium 100 Chloride 0.9% 100 ml @ 25 mls/hr IVPB Q8H [facility] Rx#: [id number] Heparin Sod,Pork in 0.45% 146.718 NaCl 25,000 unit In 0.45 % NaCl 1 250ml.bag @ 18 UNITS/KG/HR 18.81 mls/hr IV .[id number] [facility] Rx#: [id number] Norepinephrine 8 mg In 0.674 29.049 Sodium Chloride 0.9% 250 ml @ 0.05 MCG/KG/MIN 10. 11 mls/hr IV .Q24H [facility] Rx #:[id number] Oral 118 100 50 Output: Urine 800 570 549 Other: Voiding Method Indwelling Catheter Indwelling Catheter Indwelling Catheter # Voids 1 # Bowel Movements 1 - Labs CBC & Chem 7: 01/21/25 11:54 01/21/25 05:20 Labs: Abnormal Lab Results - Last 24 Hours (Table) 01/20/25 01/20/25 01/20/25 Range/Units 06:39 16:11 16:24 WBC 12.56 H (4.50-10.00) 10*3/uL RBC 2.91 L (4.40-5.60) 10*6/uL Hgb 8.6 L (13.0-17.0) g/dL Hct 25.2 L (39.6-50.0) % Plt Count (140-440) 10*3/uL Immature Gran # 1.78 H (0.00-0.04) 10*3/uL Neutrophils # (Manual) 11.68 H (1.3-7.7) k/uL Lymphocytes # (0.90-5.00) 10*3/uL Lymphocytes # (Manual) 0.25 L (1.0-4.8) k/uL ESR 64 H (0-20) mm/Hr PT (10.0-12.5) sec INR (<1.2) APTT (22.0-30.0) sec Sodium (137-145) mmol/L Chloride (98-107) mmol/L Carbon Dioxide (22-30) mmol/L BUN (9-20) mg/dL Glucose (74-99) mg/dL POC Glucose (mg/dL) 148 H (70-110) mg/dL Calcium (8.4-10.2) mg/dL 01/20/25 01/20/25 01/20/25 Range/Units 16:24 16:39 21:12 WBC (4.50-10.00) 10*3/uL RBC (4.40-5.60) 10*6/uL Hgb (13.0-17.0) g/dL Hct (39.6-50.0) % Plt Count (140-440) 10*3/uL Immature Gran # (0.00-0.04) 10*3/uL Neutrophils # (Manual) (1.3-7.7) k/uL Lymphocytes # (0.90-5.00) 10*3/uL Lymphocytes # (Manual) (1.0-4.8) k/uL ESR (0-20) mm/Hr PT 13.7 H (10.0-12.5) sec INR 1.3 H (<1.2) APTT 30.6 H (22.0-30.0) sec Sodium (137-145) mmol/L Chloride (98-107) mmol/L Carbon Dioxide (22-30) mmol/L BUN (9-20) mg/dL Glucose (74-99) mg/dL POC Glucose (mg/dL) 140 H 314 H (70-110) mg/dL Calcium (8.4-10.2) mg/dL 01/21/25 01/21/25 01/21/25 Range/Units 04:30 05:20 05:20 WBC (4.50-10.00) 10*3/uL RBC 3.10 L (4.40-5.60) 10*6/uL Hgb 9.0 L (13.0-17.0) g/dL Hct 26.8 L (39.6-50.0) % Plt Count 130 L (140-440) 10*3/uL Immature Gran # 0.66 H (0.00-0.04) 10*3/uL Neutrophils # (Manual) (1.3-7.7) k/uL Lymphocytes # (0.90-5.00) 10*3/uL Lymphocytes # (Manual) 0.72 L (1.0-4.8) k/uL ESR (0-20) mm/Hr PT (10.0-12.5) sec INR (<1.2) APTT 78.2 H (22.0-30.0) sec Sodium 135 L (137-145) mmol/L Chloride 108 H (98-107) mmol/L Carbon Dioxide 19 L (22-30) mmol/L BUN 29 H (9-20) mg/dL Glucose 102 H (74-99) mg/dL POC Glucose (mg/dL) (70-110) mg/dL Calcium 7.7 L (8.4-10.2) mg/dL 01/21/25 01/21/25 01/21/25 Range/Units 11:17 11:54 11:54 WBC (4.50-10.00) 10*3/uL RBC 3.23 L (4.40-5.60) 10*6/uL Hgb 9.6 L (13.0-17.0) g/dL Hct 27.6 L (39.6-50.0) % Plt Count 119 L (140-440) 10*3/uL Immature Gran # 0.11 H (0.00-0.04) 10*3/uL Neutrophils # (Manual) (1.3-7.7) k/uL Lymphocytes # 0.72 L (0.90-5.00) 10*3/uL Lymphocytes # (Manual) (1.0-4.8) k/uL ESR (0-20) mm/Hr PT (10.0-12.5) sec INR (<1.2) APTT 55.0 H (22.0-30.0) sec Sodium (137-145) mmol/L Chloride (98-107) mmol/L Carbon Dioxide (22-30) mmol/L BUN (9-20) mg/dL Glucose (74-99) mg/dL POC Glucose (mg/dL) 127 H (70-110) mg/dL Calcium (8.4-10.2) mg/dL Microbiology - Last 24 Hours (Table) 01/19/25 20:29 Blood Culture Gram Stain - Preliminary Blood Blood Culture - Preliminary Pseudomonas aeruginosa 01/19/25 08:43 Blood Culture Gram Stain - Preliminary Blood Blood Culture - Preliminary Pseudomonas aeruginosa Molecular ID
--- NOTE | 2025-01-21 14:57 | P.PN ---
Subjective Progress Note Date: 01/21/25 Principal diagnosis: Reason for follow-up is fever/Pseudomonas bacteremia Patient is a 84-year-old male with a past medical history significant for Atrial Fibrillation, Coronary Artery Disease (CAD), Diabetes Mellitus, Hyperlipidemia, Hypertension, Syncope, Thyroid Disorder presenting to the hospital for evaluation of weakness and back pain did have a fever prompting this consultation. On today's evaluation that is 01/21/2025, Patient did have resolution of his fe jimmy and is afebrile today patient is currently on room air and denies having any shortness of breath, the patient denies any chest pain or cough, the patient denies any nausea vomiting did not have any abdominal pain and no diarrhea mention feeling better. Patient white count is 8.65 creatinine 0.87 blood culture positive with Pseudomonas MRI of the lumbar spine shows advanced osteoarthritis did not mention any discitis or osteomyelitis Objective - Vital Signs Vital signs: Vital Signs Temp 97.8 F 01/21/25 08:30 Pulse 61 01/21/25 10:00 Resp 18 01/21/25 10:00 BP 100/53 01/21/25 10:00 Pulse Ox 99 01/21/25 10:00 FiO2 Intake & Output 01/20/25 01/21/25 01/21/25 18:59 06:59 18:59 Intake Total 5164.904 2796.767 250 Output Total 800 570 299 Balance 753.390 8867.767 -49 Weight 114.6 kg Intake: IV 1125 1500 200 Cefepime 2 gm In Sodium 100 Chloride 0.9% 100 ml @ 25 mls/hr IVPB Q8H [facility] Rx#: [id number] Magnesium Sulfate-D5w Pmx 100 1 gm In Dextrose/Water 1 100ml.bag @ 100 mls/hr IVPB ONCE ONE Rx#: [id number] Sodium Chloride 0.9% 1, 125 1500 000 ml @ 50 mls/hr IV . Q20H [facility] Rx#:[id number] Sodium Chloride 0.9% 500 500 ml 500 ml @ 999 mls/hr IV .Q31M [facility] Rx#:[id number] Vancomycin 1,750 mg In 500 Sodium Chloride 0.9% 500 ml 500 ml @ 167 mls/hr IVPB Q16H [facility] Rx#: [id number] Intake, IV Titration 0.674 275.767 Amount Cefepime 2 gm In Sodium 100 Chloride 0.9% 100 ml @ 25 mls/hr IVPB Q8H [facility] Rx#: [id number] Heparin Sod,Pork in 0.45% 146.718 NaCl 25,000 unit In 0.45 % NaCl 1 250ml.bag @ 18 UNITS/KG/HR 18.81 mls/hr IV .[id number] [facility] Rx#: [id number] Norepinephrine 8 mg In 0.674 29.049 Sodium Chloride 0.9% 250 ml @ 0.05 MCG/KG/MIN 10. 11 mls/hr IV .Q24H [facility] Rx #:[id number] Oral 118 100 50 Output: Urine 800 570 299 Other: Voiding Method Indwelling Catheter Indwelling Catheter Indwelling Catheter # Voids 1 # Bowel Movements 1 - Exam GENERAL DESCRIPTION: An elderly male lying in bed in no distress RESPIRATORY SYSTEM: Unlabored breathing , decreased breath sounds at bases HEART: S1 S2 regular rate and rhythm , ABDOMEN: Soft , no tenderness EXTREMITIES: No edema feet - Labs CBC & Chem 7: 01/21/25 11:54 01/21/25 05:20 Labs: Abnormal Lab Results - Last 24 Hours (Table) 01/20/25 01/20/25 01/20/25 Range/Units 06:39 16:11 16:24 WBC 12.56 H (4.50-10.00) 10*3/uL RBC 2.91 L (4.40-5.60) 10*6/uL Hgb 8.6 L (13.0-17.0) g/dL Hct 25.2 L (39.6-50.0) % Plt Count (140-440) 10*3/uL Immature Gran # 1.78 H (0.00-0.04) 10*3/uL Neutrophils # (Manual) 11.68 H (1.3-7.7) k/uL Lymphocytes # (Manual) 0.25 L (1.0-4.8) k/uL ESR 64 H (0-20) mm/Hr PT (10.0-12.5) sec INR (<1.2) APTT (22.0-30.0) sec Sodium (137-145) mmol/L Chloride (98-107) mmol/L Carbon Dioxide (22-30) mmol/L BUN (9-20) mg/dL Glucose (74-99) mg/dL POC Glucose (mg/dL) 148 H (70-110) mg/dL Calcium (8.4-10.2) mg/dL 01/20/25 01/20/25 01/20/25 Range/Units 16:24 16:39 21:12 WBC (4.50-10.00) 10*3/uL RBC (4.40-5.60) 10*6/uL Hgb (13.0-17.0) g/dL Hct (39.6-50.0) % Plt Count (140-440) 10*3/uL Immature Gran # (0.00-0.04) 10*3/uL Neutrophils # (Manual) (1.3-7.7) k/uL Lymphocytes # (Manual) (1.0-4.8) k/uL ESR (0-20) mm/Hr PT 13.7 H (10.0-12.5) sec INR 1.3 H (<1.2) APTT 30.6 H (22.0-30.0) sec Sodium (137-145) mmol/L Chloride (98-107) mmol/L Carbon Dioxide (22-30) mmol/L BUN (9-20) mg/dL Glucose (74-99) mg/dL POC Glucose (mg/dL) 140 H 314 H (70-110) mg/dL Calcium (8.4-10.2) mg/dL 01/21/25 01/21/25 01/21/25 Range/Units 04:30 05:20 05:20 WBC (4.50-10.00) 10*3/uL RBC 3.10 L (4.40-5.60) 10*6/uL Hgb 9.0 L (13.0-17.0) g/dL Hct 26.8 L (39.6-50.0) % Plt Count 130 L (140-440) 10*3/uL Immature Gran # 0.66 H (0.00-0.04) 10*3/uL Neutrophils # (Manual) (1.3-7.7) k/uL Lymphocytes # (Manual) 0.72 L (1.0-4.8) k/uL ESR (0-20) mm/Hr PT (10.0-12.5) sec INR (<1.2) APTT 78.2 H (22.0-30.0) sec Sodium 135 L (137-145) mmol/L Chloride 108 H (98-107) mmol/L Carbon Dioxide 19 L (22-30) mmol/L BUN 29 H (9-20) mg/dL Glucose 102 H (74-99) mg/dL POC Glucose (mg/dL) (70-110) mg/dL Calcium 7.7 L (8.4-10.2) mg/dL 01/21/25 01/21/25 Range/Units 11:17 11:54 WBC (4.50-10.00) 10*3/uL RBC (4.40-5.60) 10*6/uL Hgb (13.0-17.0) g/dL Hct (39.6-50.0) % Plt Count (140-440) 10*3/uL Immature Gran # (0.00-0.04) 10*3/uL Neutrophils # (Manual) (1.3-7.7) k/uL Lymphocytes # (Manual) (1.0-4.8) k/uL ESR (0-20) mm/Hr PT (10.0-12.5) sec INR (<1.2) APTT 55.0 H (22.0-30.0) sec Sodium (137-145) mmol/L Chloride (98-107) mmol/L Carbon Dioxide (22-30) mmol/L BUN (9-20) mg/dL Glucose (74-99) mg/dL POC Glucose (mg/dL) 127 H (70-110) mg/dL Calcium (8.4-10.2) mg/dL Microbiology - Last 24 Hours (Table) 01/19/25 20:29 Blood Culture Gram Stain - Preliminary Blood Blood Culture - Preliminary Pseudomonas aeruginosa 01/19/25 08:43 Blood Culture Gram Stain - Preliminary Blood Blood Culture - Preliminary Pseudomonas aeruginosa Molecular ID Assessment and Plan (1) Back pain Current Visit: Yes Status: Acute Code(s): M54.9 - DORSALGIA, UNSPECIFIED SNOMED Code(s): 647388106 (2) SIRS (systemic inflammatory response syndrome) Current Visit: No Status: Acute Code(s): R65.10 - SIRS OF NON-INFECTIOUS ORIGIN W/O ACUTE ORGAN DYSFUNCTION SNOMED Code(s): 145033758 (3) Bacteremia due to Pseudomonas Current Visit: No Status: Acute Code(s): R78.81 - BACTEREMIA; B96.5 - PSEUDOMONAS (MALLEI) CAUSING DISEASES CLASSD ELSWHR SNOMED Code(s): 4385823475 Plan: 1patient presented to hospital with weakness lightheadedness and near syncopal episode has also been complaining of lower back pain with no history of any trauma no start running a fever did have mild elevated white count concerning for possible lumbosacral spinal disease responsible for this fever 2-patient blood culture positive for Pseudomonas patient MRI did not show any evidence of discitis or osteomyelitis currently waiting for an echocardiogram may need TTE if negative. 3patient did have resolution of his fever white count normalized we will continue with the cefepime question concern answered Dictation was produced using [employer] dictation software. please excuse any grammatical, word or spelling errors. Time with Patient: Less than 30
[2025-01-21 16:44] LABS: Glucose,Whole Blood 144 mg/dL (70-110)
[2025-01-21 19:49] LABS: Glucose,Whole Blood 189 mg/dL (70-110)
[2025-01-21] MEDS: APIXABAN 5 MG TAB PO SCH (19:57)
--- NOTE | 2025-01-22 00:32 | P.PN ---
Subjective Progress Note Date: 01/21/25 Patient was seen for a follow-up. patient's daughter was present by the bedside. Patient's infection has come under control. He is back on the floor from ICU. Patient was somnolent, but did wake up and answers appropriately. Patient complaining of low back pain very severe. Objective - Vital Signs Vital signs: Vital Signs Temp 97.5 F L 01/21/25 13:45 Pulse 59 L 01/21/25 13:45 Resp 16 01/21/25 13:45 BP 121/73 01/21/25 13:45 Pulse Ox 98 01/21/25 13:45 FiO2 Intake & Output 01/20/25 01/21/25 01/21/25 18:59 06:59 18:59 Intake Total 5064.540 2006.767 250 Output Total 800 570 549 Balance 786.066 0002.767 -299 Weight 114.6 kg Intake: IV 1125 1500 200 Cefepime 2 gm In Sodium 100 Chloride 0.9% 100 ml @ 25 mls/hr IVPB Q8H [facility] Rx#: [id number] Magnesium Sulfate-D5w Pmx 100 1 gm In Dextrose/Water 1 100ml.bag @ 100 mls/hr IVPB ONCE [facility] Rx#: [id number] Sodium Chloride 0.9% 1, 125 1500 000 ml @ 50 mls/hr IV . Q20H [facility] Rx#:[id number] Sodium Chloride 0.9% 500 500 ml 500 ml @ 999 mls/hr IV .Q31M [facility] Rx#:[id number] Vancomycin 1,750 mg In 500 Sodium Chloride 0.9% 500 ml 500 ml @ 167 mls/hr IVPB Q16H [facility] Rx#: [id number] Intake, IV Titration 0.674 275.767 Amount Cefepime 2 gm In Sodium 100 Chloride 0.9% 100 ml @ 25 mls/hr IVPB Q8H [facility] Rx#: [id number] Heparin Sod,Pork in 0.45% 146.718 NaCl 25,000 unit In 0.45 % NaCl 1 250ml.bag @ 18 UNITS/KG/HR 18.81 mls/hr IV .[id number] [facility] Rx#: [id number] Norepinephrine 8 mg In 0.674 29.049 Sodium Chloride 0.9% 250 ml @ 0.05 MCG/KG/MIN 10. 11 mls/hr IV .Q24H [facility] Rx #:[id number] Oral 118 100 50 Output: Urine 800 570 549 Other: Voiding Method Indwelling Catheter Indwelling Catheter Indwelling Catheter # Voids 1 # Bowel Movements 1 - Exam Patient appears mildly encephalopathic. He does wake up, and answers appropriately, smiles. Admits to having lower back pain. Otherwise examination unchanged. - Labs CBC & Chem 7: 01/21/25 11:54 01/21/25 05:20 Labs: Abnormal Lab Results - Last 24 Hours (Table) 01/20/25 01/20/25 01/20/25 Range/Units 06:39 16:11 16:24 WBC 12.56 H (4.50-10.00) 10*3/uL RBC 2.91 L (4.40-5.60) 10*6/uL Hgb 8.6 L (13.0-17.0) g/dL Hct 25.2 L (39.6-50.0) % Plt Count (140-440) 10*3/uL Immature Gran # 1.78 H (0.00-0.04) 10*3/uL Neutrophils # (Manual) 11.68 H (1.3-7.7) k/uL Lymphocytes # (0.90-5.00) 10*3/uL Lymphocytes # (Manual) 0.25 L (1.0-4.8) k/uL ESR 64 H (0-20) mm/Hr PT (10.0-12.5) sec INR (<1.2) APTT (22.0-30.0) sec Sodium (137-145) mmol/L Chloride (98-107) mmol/L Carbon Dioxide (22-30) mmol/L BUN (9-20) mg/dL Glucose (74-99) mg/dL POC Glucose (mg/dL) 148 H (70-110) mg/dL Calcium (8.4-10.2) mg/dL 01/20/25 01/20/25 01/20/25 Range/Units 16:24 16:39 21:12 WBC (4.50-10.00) 10*3/uL RBC (4.40-5.60) 10*6/uL Hgb (13.0-17.0) g/dL Hct (39.6-50.0) % Plt Count (140-440) 10*3/uL Immature Gran # (0.00-0.04) 10*3/uL Neutrophils # (Manual) (1.3-7.7) k/uL Lymphocytes # (0.90-5.00) 10*3/uL Lymphocytes # (Manual) (1.0-4.8) k/uL ESR (0-20) mm/Hr PT 13.7 H (10.0-12.5) sec INR 1.3 H (<1.2) APTT 30.6 H (22.0-30.0) sec Sodium (137-145) mmol/L Chloride (98-107) mmol/L Carbon Dioxide (22-30) mmol/L BUN (9-20) mg/dL Glucose (74-99) mg/dL POC Glucose (mg/dL) 140 H 314 H (70-110) mg/dL Calcium (8.4-10.2) mg/dL 01/21/25 01/21/25 01/21/25 Range/Units 04:30 05:20 05:20 WBC (4.50-10.00) 10*3/uL RBC 3.10 L (4.40-5.60) 10*6/uL Hgb 9.0 L (13.0-17.0) g/dL Hct 26.8 L (39.6-50.0) % Plt Count 130 L (140-440) 10*3/uL Immature Gran # 0.66 H (0.00-0.04) 10*3/uL Neutrophils # (Manual) (1.3-7.7) k/uL Lymphocytes # (0.90-5.00) 10*3/uL Lymphocytes # (Manual) 0.72 L (1.0-4.8) k/uL ESR (0-20) mm/Hr PT (10.0-12.5) sec INR (<1.2) APTT 78.2 H (22.0-30.0) sec Sodium 135 L (137-145) mmol/L Chloride 108 H (98-107) mmol/L Carbon Dioxide 19 L (22-30) mmol/L BUN 29 H (9-20) mg/dL Glucose 102 H (74-99) mg/dL POC Glucose (mg/dL) (70-110) mg/dL Calcium 7.7 L (8.4-10.2) mg/dL 01/21/25 01/21/25 01/21/25 Range/Units 11:17 11:54 11:54 WBC (4.50-10.00) 10*3/uL RBC 3.23 L (4.40-5.60) 10*6/uL Hgb 9.6 L (13.0-17.0) g/dL Hct 27.6 L (39.6-50.0) % Plt Count 119 L (140-440) 10*3/uL Immature Gran # 0.11 H (0.00-0.04) 10*3/uL Neutrophils # (Manual) (1.3-7.7) k/uL Lymphocytes # 0.72 L (0.90-5.00) 10*3/uL Lymphocytes # (Manual) (1.0-4.8) k/uL ESR (0-20) mm/Hr PT (10.0-12.5) sec INR (<1.2) APTT 55.0 H (22.0-30.0) sec Sodium (137-145) mmol/L Chloride (98-107) mmol/L Carbon Dioxide (22-30) mmol/L BUN (9-20) mg/dL Glucose (74-99) mg/dL POC Glucose (mg/dL) 127 H (70-110) mg/dL Calcium (8.4-10.2) mg/dL Microbiology - Last 24 Hours (Table) 01/19/25 20:29 Blood Culture Gram Stain - Preliminary Blood Blood Culture - Preliminary Pseudomonas aeruginosa 01/19/25 08:43 Blood Culture Gram Stain - Preliminary Blood Blood Culture - Preliminary Pseudomonas aeruginosa Molecular ID Assessment and Plan Assessment: * Near syncopal spells, likely due to orthostatic hypotension versus SIRS related. Rule out other causes. * Septic shock, with hypotension. Exact source uncertain, no evidence of discitis osteomyelitis * Bacteremia with Pseudomonas aeruginosa * Hypertension * Diabetes * Hyperlipidemia * lumbar spinal stenosis, severe at L3-L4 and L4-L5 levels. * Atrial fibrillation, on Eliquis * Coronary artery disease * Hypothyroidism * X tobacco use Plan: * EEG was abnormal due to background slowing, suggestive of mild to moderate encephalopathy. No focal, lateralized or epileptiform activity was seen. No indication for antiepileptic medication. * Continue Eliquis for atrial fibrillation * Orthostatics pending * Await 2-D echo initiated by cardiology, rule out vegetations. Patient may need KATHY. * Carotid Doppler on 09/29/2024 revealed bilateral carotid stents without elevated velocities to suggest hemodynamically significant stenosis of the ICAs. Plaque is seen within the bilateral CCA extending into the ICA and ECA. Antegrade flow in both vertebral arteries. No need to repeat carotid Doppler. * MRI of the lumbar spine with and without contrast revealed grade 1 anterolisthesis of L5 on S1. 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 Moderate L3-4 right paracentral disc herniation. Severe spinal stenosis at L3-L4 and L4-L5 levels. Mild neural foraminal stenosis at L4-L5 and L5-S1 level on the left. I personally reviewed MRI, agree with the findings. * Recommend follow-up with orthopedic spine outpatient. At present patient is septic, not a candidate for any intervention. * Patient currently on cefepime, whereas vancomycin has been discontinued by ID. * Dr. Jake Jean to resume neurology service in the morning.
--- NOTE | 2025-01-22 02:05 | P.PN ---
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 Associated close nonspecific dizziness but no headache. No specific limb weakness or numbness or blurred vision or double vision He has some vision problems and he follow-up with Dr. partida He denies chest pain or dyspnea. No other specific GI/ symptoms He has mild headache about 2-3/10 on the right side He states that recently he has been treated for UTI however he denies any urinary symptoms and urinalysis is negative. Vital stable afebrile. Is mildly tachycardic with heart rate 102. CBC BMP LFT and liver enzymes were unremarkable. Troponin is negative less than 0.012. Urinalysis normal. Chest x-ray showing no acute cardiopulmonary process EKG showing sinus tachycardia congestion with no significant ST-T changes but there is multiple PVCs. He was started on aspirin 325 mg admitted with cardiology team consult Patient currently complains from spasm in his lower back that comes severely for a few seconds before letting go 01/19 Patient awake alert not in distress today. He feels better he says he can get up today compared to yesterday but he still complaining from back pain His back pain looks better than yesterday like 10/19 however once he try to move his leg even with little bend of the knee he developed severe pain in the lower back. No chest pain dyspnea or abdominal pain or tenderness.. He spiked a fever 104 overnight. Labs from yesterday showing WBC 10.2 hemoglobin 12.7. INR 1.1. Potassium is 4.4 creatinine 1.07. Patient still getting normal saline 75 mL/h. He is on Dilaudid for pain control also he is on aspirin Eliquis and Pepcid 01/20 Patient clinically the same, awake alert complaining from severe low back pain. Dilaudid 0.5 mg was not enough we will increase the dose to 1 mg. No chest pain no headache or dizziness no other new complaints. He is currently on antibiotic IV vancomycin and cefepime. Also infectious disease team following closely. Blood culture is coming back positive pending sensitivity and further evaluation. Because of spine infection is suspected. Patient may require procedure we going to hold Eliquis starting tonight. He got dose this morning. We are going to start bridging heparin tonight. Patient received boluses of normal saline, hypotension improved, creatinine function is stable. MRI of the spine with and without contrast ordered by infectious disease team. Is going to be done tonight however because of his fever it was held this afternoon. We are treating his fever aggressively with Tylenol, ibuprofen ordered and cooling blanket. Blood pressure is also monitored closely and discussed with the staff to give boluses if required. 01/21 Patient was hypotensive overnight and he was transferred to the ICU. They gave him only a small bolus of normal saline 500 cc which apparently was not enough. With getting more fluid his blood pressure improved. He did not really need any pressors. Eventually patient was transferred back to the general medical floor today. His back pain controlled with Dilaudid MRI showed no epidural abscess but there is severe spinal stenosis at L3-L4. Neurology service recommended orthopedic follow-up as an outpatient not candidate for any surgical intervention because septic. Patient currently covered with cefepime, 2 blood culture samples came back positive for Pseudomonas. Cardiology team on the case echocardiogram requested. Also cardio recommend Holter monitor as an outpatient. Active Medications Generic Name Dose Route Start Last Admin Trade Name Freq PRN Reason Stop Dose Admin Acetaminophen 1,000 mg 01/18/25 12:22 01/21/25 03:34 Acetaminophen Tab 500 Mg Tab PO 1,000 mg Q6H PRN Administration Pain Hydrocodone Bitart/Acetaminophen 1 each 01/18/25 12:23 01/21/25 23:15 Hydrocodone/Apap 5-325mg 1 Each Tab PO 1 each Q6HR PRN Administration Pain Apixaban 5 mg 01/21/25 21:00 01/21/25 19:57 Apixaban 5 Mg Tab PO 5 mg BID KORINA Administration Protocol Aspirin 81 mg 01/19/25 09:00 01/21/25 08:45 Aspirin 81 Mg PO 81 mg DAILY@0900 KORINA Administration Atorvastatin Calcium 40 mg 01/19/25 09:00 01/21/25 08:45 Atorvastatin 40 Mg Tab PO 40 mg DAILY@0900 KORINA Administration Famotidine 20 mg 01/18/25 21:00 01/21/25 19:56 Famotidine 20 Mg/2 Ml Vial IV 20 mg Q12HR KORINA Administration Hydromorphone HCl 0.5 mg 01/18/25 12:19 Hydromorphone 0.5 Mg/0.5 Ml Syringe IVP Q6HR PRN Pain Hydromorphone HCl 1 mg 01/20/25 09:41 01/20/25 09:46 Hydromorphone 1 Mg/Ml 1 Ml Syringe IVP 1 mg Q6HR PRN Administration Severe Pain (Scale 7 to 10) Cefepime HCl 2 gm/ Sodium 100 mls @ 25 mls/hr 01/20/25 23:00 01/21/25 23:13 Chloride IVPB 25 mls/hr Q8H KORINA Administration Protocol Sodium Chloride 1,000 mls @ 50 mls/hr 01/20/25 16:15 01/21/25 09:04 Saline 0.9% IV Not Given .Q20H [facility] Ibuprofen 600 mg 01/20/25 12:56 01/20/25 14:28 Ibuprofen 600 Mg Tab PO 600 mg TID PRN Administration Fever Insulin Human Lispro 0 unit 01/19/25 12:30 01/21/25 19:57 Insulin Lispro (Humalog) 100 Unit/Ml 10 Ml Vl SQ 2 unit ACHS KORINA Administration Protocol Isosorbide Mononitrate 30 mg 01/21/25 09:00 01/21/25 10:36 Isosorbide Mononitrate Er 30 Mg Tab.Er.24h PO Not Given DAILY@0900 [facility] Levothyroxine Sodium 50 mcg 01/19/25 09:00 01/21/25 08:46 Levothyroxine 50 Mcg Tab PO 50 mcg DAILY@0900 [facility] Administration Losartan Potassium 25 mg 01/22/25 09:00 Losartan 25 Mg Tab PO DAILY [facility] Metoprolol Tartrate 50 mg 01/18/25 21:00 01/21/25 19:57 Metoprolol Tartrate 50 Mg Tab PO 50 mg BID KORINA Administration Miscellaneous Information 1 each 01/18/25 12:25 Magnesium Replacement Protocol 1 Each Mis MISCELLANE DAILY PRN Per Protocol Protocol Miscellaneous Information 1 each 01/21/25 07:06 Potassium Replacement Protocol 1 Each Mis MISCELLANE DAILY PRN Per Protocol Protocol Naloxone HCl 0.2 mg 01/18/25 11:48 Naloxone 0.4 Mg/Ml 1 Ml Vial IV Q2M PRN Opioid Reversal Nitroglycerin 0.4 mg 01/18/25 12:22 Nitroglycerin Sl Tabs 0.4 Mg Tab SUBLINGUAL Q5M PRN Chest Pain Objective - Vital Signs Vital signs: Vital Signs Temp 97.8 F 01/21/25 08:30 Pulse 61 01/21/25 10:00 Resp 18 01/21/25 10:00 BP 100/53 01/21/25 10:00 Pulse Ox 99 01/21/25 10:00 FiO2 Intake & Output 01/20/25 01/21/25 01/21/25 18:59 06:59 18:59 Intake Total 9969.599 9574.767 250 Output Total 800 570 299 Balance 825.275 7788.767 -49 Weight 114.6 kg Intake: IV 1125 1500 200 Cefepime 2 gm In Sodium 100 Chloride 0.9% 100 ml @ 25 mls/hr IVPB Q8H [facility] Rx#: [id number] Magnesium Sulfate-D5w Pmx 100 1 gm In Dextrose/Water 1 100ml.bag @ 100 mls/hr IVPB ONCE ONE Rx#: [id number] Sodium Chloride 0.9% 1, 125 1500 000 ml @ 50 mls/hr IV . Q20H [facility] Rx#:[id number] Sodium Chloride 0.9% 500 500 ml 500 ml @ 999 mls/hr IV .Q31M ONE Rx#:[id number] Vancomycin 1,750 mg In 500 Sodium Chloride 0.9% 500 ml 500 ml @ 167 mls/hr IVPB Q16H [facility] Rx#: [id number] Intake, IV Titration 0.674 275.767 Amount Cefepime 2 gm In Sodium 100 Chloride 0.9% 100 ml @ 25 mls/hr IVPB Q8H [facility] Rx#: [id number] Heparin Sod,Pork in 0.45% 146.718 NaCl 25,000 unit In 0.45 % NaCl 1 250ml.bag @ 18 UNITS/KG/HR 18.81 mls/hr IV .[id number] [facility] Rx#: [id number] Norepinephrine 8 mg In 0.674 29.049 Sodium Chloride 0.9% 250 ml @ 0.05 MCG/KG/MIN 10. 11 mls/hr IV .Q24H [facility] Rx #:[id number] Oral 118 100 50 Output: Urine 800 570 299 Other: Voiding Method Indwelling Catheter Indwelling Catheter Indwelling Catheter # Voids 1 # Bowel Movements 1 - Exam -GENERAL: The patient is alert and oriented x3, not in any acute distress. Well developed, well nourished. Obese HEENT: Pupils are round and equally reacting to light. EOMI. No scleral icterus. No conjunctival pallor. Normocephalic, atraumatic. No pharyngeal erythema. No thyromegaly. CARDIOVASCULAR: S1 and S2 present. No murmurs, rubs, or gallops. PULMONARY: Chest is clear to auscultation, no wheezing , no crackles. ABDOMEN: Soft, nontender, nondistended, normoactive bowel sounds. No palpable organomegaly. MUSCULOSKELETAL: No joint swelling or deformity. EXTREMITIES: No cyanosis, clubbing, or pedal edema. NEUROLOGICAL: Gross neurological examination did not reveal any focal deficits. SKIN: No rashes. no petechiae. - Labs CBC & Chem 7: 01/21/25 11:54 01/21/25 05:20 Labs: Abnormal Lab Results - Last 24 Hours (Table) 01/20/25 01/20/25 01/20/25 Range/Units 06:39 16:11 16:24 WBC 12.56 H (4.50-10.00) 10*3/uL RBC 2.91 L (4.40-5.60) 10*6/uL Hgb 8.6 L (13.0-17.0) g/dL Hct 25.2 L (39.6-50.0) % Plt Count (140-440) 10*3/uL Immature Gran # 1.78 H (0.00-0.04) 10*3/uL Neutrophils # (Manual) 11.68 H (1.3-7.7) k/uL Lymphocytes # (Manual) 0.25 L (1.0-4.8) k/uL ESR 64 H (0-20) mm/Hr PT (10.0-12.5) sec INR (<1.2) APTT (22.0-30.0) sec Sodium (137-145) mmol/L Chloride (98-107) mmol/L Carbon Dioxide (22-30) mmol/L BUN (9-20) mg/dL Glucose (74-99) mg/dL POC Glucose (mg/dL) 148 H (70-110) mg/dL Calcium (8.4-10.2) mg/dL 0701/20/25 01/20/25 Range/Units 16:24 16:39 21:12 WBC (4.50-10.00) 10*3/uL RBC (4.40-5.60) 10*6/uL Hgb (13.0-17.0) g/dL Hct (39.6-50.0) % Plt Count (140-440) 10*3/uL Immature Gran # (0.00-0.04) 10*3/uL Neutrophils # (Manual) (1.3-7.7) k/uL Lymphocytes # (Manual) (1.0-4.8) k/uL ESR (0-20) mm/Hr PT 13.7 H (10.0-12.5) sec INR 1.3 H (<1.2) APTT 30.6 H (22.0-30.0) sec Sodium (137-145) mmol/L Chloride (98-107) mmol/L Carbon Dioxide (22-30) mmol/L BUN (9-20) mg/dL Glucose (74-99) mg/dL POC Glucose (mg/dL) 140 H 314 H (70-110) mg/dL Calcium (8.4-10.2) mg/dL 01/21/25 01/21/25 01/21/25 Range/Units 04:30 05:20 05:20 WBC (4.50-10.00) 10*3/uL RBC 3.10 L (4.40-5.60) 10*6/uL Hgb 9.0 L (13.0-17.0) g/dL Hct 26.8 L (39.6-50.0) % Plt Count 130 L (140-440) 10*3/uL Immature Gran # 0.66 H (0.00-0.04) 10*3/uL Neutrophils # (Manual) (1.3-7.7) k/uL Lymphocytes # (Manual) 0.72 L (1.0-4.8) k/uL ESR (0-20) mm/Hr PT (10.0-12.5) sec INR (<1.2) APTT 78.2 H (22.0-30.0) sec Sodium 135 L (137-145) mmol/L Chloride 108 H (98-107) mmol/L Carbon Dioxide 19 L (22-30) mmol/L BUN 29 H (9-20) mg/dL Glucose 102 H (74-99) mg/dL POC Glucose (mg/dL) (70-110) mg/dL Calcium 7.7 L (8.4-10.2) mg/dL 01/21/25 Range/Units 11:17 WBC (4.50-10.00) 10*3/uL RBC (4.40-5.60) 10*6/uL Hgb (13.0-17.0) g/dL Hct (39.6-50.0) % Plt Count (140-440) 10*3/uL Immature Gran # (0.00-0.04) 10*3/uL Neutrophils # (Manual) (1.3-7.7) k/uL Lymphocytes # (Manual) (1.0-4.8) k/uL ESR (0-20) mm/Hr PT (10.0-12.5) sec INR (<1.2) APTT (22.0-30.0) sec Sodium (137-145) mmol/L Chloride (98-107) mmol/L Carbon Dioxide (22-30) mmol/L BUN (9-20) mg/dL Glucose (74-99) mg/dL POC Glucose (mg/dL) 127 H (70-110) mg/dL Calcium (8.4-10.2) mg/dL Microbiology - Last 24 Hours (Table) 01/19/25 20:29 Blood Culture Gram Stain - Preliminary Blood Blood Culture - Preliminary Pseudomonas aeruginosa 01/19/25 08:43 Blood Culture Gram Stain - Preliminary Blood Blood Culture - Preliminary Pseudomonas aeruginosa Molecular ID Assessment and Plan Assessment: Severe sepsis with fever and leukocytosis, elevated lactic acid improved Pseudomonas bacteremia Recurrent syncope and falling, last few seconds with no seizure activity Fever of unknown origin Acute severe lower back pain, secondary to severe lumbar spinal stenosis seen on the MRI Generalized weakness Hypomagnesemia Dehydration A-fib with mild RVR Hypertension Hyperlipidemia Coronary disease status post stent AAA Plan: Continue with antibiotic cefepime. Follow-up blood culture results Echocardiogram Continue gentle hydration with improvement in blood pressure Infectious disease team consult MRI of the spine reviewed Cardiology team consult Resume Eliquis and aspirin. Pain management with Dilaudid [place] and Tylenol consult neurology service Replace magnesium per protocol and monitor closely Labs and medication were reviewed.. Continue same treatment. Continue with symptomatic treatment. Resume home medication. Monitor labs and vitals. DVT and GI prophylaxis. Further recommendations as per clinical course of the patient DVT prophylaxis: Heparin drip GI Prophylaxis: Pepcid PT/OT: Pending Prognosis is guarded
[2025-01-22 05:56] LABS: Glucose,Whole Blood 121 mg/dL (70-110)
[2025-01-22 06:57] LABS: Basophils # (A) 0.05 10*3/uL (0.00-0.10); Basophils % (A) 0.6 %; Eosinophils # (A) 0.17 10*3/uL (0.04-0.35); Eosinophils % (A) 2.1 %; HCT 30.9 % (39.6-50.0); HGB 10.4 g/dL (13.0-17.0); Lymphocytes # (A) 0.82 10*3/uL (0.90-5.00); Lymphocytes % (A) 10.0 %; MCH 28.8 pg (27.0-32.0); MCHC 33.7 g/dL (32.0-37.0); MCV 85.6 fL (80.0-97.0); Monocytes # (A) 0.37 10*3/uL (0.20-1.00); Monocytes % (A) 4.5 %; Neutrophils # (A) 6.74 10*3/uL (1.80-7.70); Neutrophils % (A) 81.8 %; Platelet Count 140 10*3/uL (140-440); RBC 3.61 10*6/uL (4.40-5.60); RDW 14.0 % (11.5-14.5); WBC 8.23 10*3/uL (4.50-10.00)
[2025-01-22 07:10] LABS: African American GFR (CKD) >90 (>60 ml/min/1.73 sqM); Anion Gap 8 mmol/L; Blood Urea Nitrogen 19 mg/dL (9-20); Calcium 8.0 mg/dL (8.4-10.2); Carbon Dioxide 17 mmol/L (22-30); Chloride 111 mmol/L (98-107); Glucose 118 mg/dL (74-99); Magnesium 1.6 mg/dL (1.6-2.3); Non-African American GFR(CKD) >90 (>60 ml/min/1.73 sqM); Potassium 3.9 mmol/L (3.5-5.1); Sodium 136 mmol/L (137-145)
[2025-01-22] MEDS: LOSARTAN 25 MG TAB PO SCH (08:15)
--- NOTE | 2025-01-22 09:35 | CDI ---
Documentation Clarification Form Date: 01/22/2025 09:12:17 AM From: Yamilet Obrien RN CCDS Phone: [phone] Admit Date: 01/18/2025 11:49:00 AM Patient Name: Teto Barrios Visit Number: [id number] Discharge Date: ATTENTION: The Clinical Documentation Specialists (CDI) and [facility] Coding Staff appreciate your assistance in clarifying documentation. Please respond to the clarification below the line at the bottom and electronically sign. The CDI & [facility] Coding staff will review the response and follow-up if needed. Please note: Queries are made part of the Legal Health Record. If you have any questions, please contact the author of this message via ITS. Doctor: Kiera Robles Encephalopathy is documented 01/20, Neurology note. Additional clarification regarding the type of encephalopathy is requested. History/Risk Factors: 84 year old male presents to the ED for having recurrent syncope he has been passing out daily over the last three to four days. Medical history Recent UTI, CAD, HLD and HTN. 01/18, HP. Clinical Indicators: Neurology note, 01/20: Patient appears mild moderately encephalopathic. He is getting septic, with hypotension. Patient receiving a fluid bolus. He appears vry sick. Patient is growing Pseudomonas aeruginosa in the blood. VSS, 01/19: B/P 112/69, HR 93, RR 20, Temp 103.5 F Axillary, SpO2 99% 2L nc Labs 01/19: Wbc 13.44, Neutrophils 11.42, CRP 19.6, Procalcitonin 16.60 01/19 Blood Culture: Pseudomonas aeruginosa EEG, 01/19:Abnormal due to background slowing, suggestive of mild to moderate encephalopathy. No focal , lateralized or epileptiform activity seen. 01/18, VSS: B/P 144/74, HR 118, Temp 104.1 Tympanic, RR 24, SpO2 95% ra Treatment: 01/20 Cefepime IVPB Q8H, 01/19 Vancomycin IVPB x 1; 01/20 01/20 Norepinephrine Bitarrate IVPB Fluids: 01/18 0.9ns IV 1L Bolus ; 01/18 01/20 0.9NS IV 100cc/hr,; 01/19 0.9ns IV 1l Bolus x2; 01/20 0.9NS IV 500cc bolus Please clarify the type of encephalopathy, if known: [ x ] Metabolic Encephalopathy [ ] Septic Encephalopathy [ x ] Other, please specify_Septic encephalopathy_ [ ] Unable to determine (Template Last Revised: September 2020) MD CAYLA Pedroza
[2025-01-22 11:40] LABS: Glucose,Whole Blood 138 mg/dL (70-110)
--- NOTE | 2025-01-22 13:00 | CA ---
Transthoracic Echo Report Name: Teto Barrios Age: 84 Gender: M : 1940 Exam Date: 01/22/2025 07:57 Exam Location: [facility] Ht (in): 71 Wt (lb): 228 Ordering Physician: Balaji Agosto MD ([email or web address]) Attending/Referring Phys: Iron Setter Stefanie Gonzalez RDCS Procedure CPT: Indications: Syncope Cardiac Hx: Technical Quality: Technically difficult study Contrast 1: Definity Total Dose (mL): 2 Contrast 2: Total Dose (mL): MEASUREMENTS (Male / Female) Normal Values 2D ECHO LV Diastolic Diameter PLAX 3.2 cm 4.2 - 5.9 / 3.9 - 5.3 cm LV Systolic Diameter PLAX 2.7 cm IVS Diastolic Thickness 1.9 cm 0.6 - 1.0 / 0.6 - 0.9 cm LVPW Diastolic Thickness 1.5 cm 0.6 - 1.0 / 0.6 - 0.9 cm LV Relative Wall Thickness 1.1 RV Internal Dim ED PLAX 2.1 cm LVOT Diameter 2.1 cm LA Systolic Diameter LX 4.4 cm 3.0 - 4.0 / 2.7 - 3.8 cm LV Diastolic Volume MOD BP 187.1 cm??? 67 - 155 / 56 - 104 cm??? LV Systolic Volume MOD BP 79.4 cm??? 22 - 58 / 19 - 49 cm??? LV Ejection Fraction MOD BP 57.6 % >= 55 % LV Cardiac Index MOD BP 3552.4 cm???/min???m??? LV Diastolic Volume MOD 4C 185.7 cm??? LV Systolic Volume MOD 4C 58.9 cm??? LV Ejection Fraction MOD 4C 68.3 % LV Cardiac Index MOD 4C 4182.7 cm???/min???m??? LV Diastolic Length 4C 9.2 cm LV Systolic Length 4C 7.6 cm LV Diastolic Volume MOD 2C 184.4 cm??? LV Systolic Volume MOD 2C 103.5 cm??? LV Ejection Fraction MOD 2C 43.9 % LV Cardiac Index MOD 2C 2666.7 cm???/min???m??? LV Diastolic Length 2C 9.4 cm LV Systolic Length 2C 7.9 cm LA Volume 98.3 cm??? 18 - 58 / 22 - 52 cm??? LA Volume Index 42.6 cm???/m??? 16 - 28 cm???/m??? DOPPLER AV Peak Velocity 117.3 cm/s AV Peak Gradient 5.5 mmHg AI Peak Velocity 355.9 cm/s AI Peak Gradient 50.7 mmHg AI Pressure Half Time 476.0 ms LVOT Peak Velocity 82.8 cm/s LVOT Peak Gradient 2.7 mmHg AV Area Cont Eq pk 2.4 cm??? TR Peak Velocity 191.3 cm/s TR Peak Gradient 14.6 mmHg Right Ventricular Systolic Press 19.6 mmHg FINDINGS Left Ventricle Left ventricular ejection fraction is estimated at 60-65 %.Moderately increased left ventricular wall thickness. Left ventricular cavity size normal. No obvious regional wall motion abnormalities. Right Ventricle Limited study this section was not interepreted Right Atrium Normal right atrial size. No right atrial thrombus or mass seen. Left Atrium Mildly increased left atrial diameter. Mildly increased left atrial volume. Mildly increased left atrial area. Mitral Valve Mild thickening/calcification of the anterior mitral valve leaflet. Trace mitral regurgitation. No mitral stenosis. Aortic Valve Aortic valve not well visualized. Trace - mild aortic regurgitation. No aortic stenosis. Tricuspid Valve Tricuspid valve not well visualized. Trace tricuspid regurgitation. Pulmonic Valve limited study this section wasnot interepreted Pericardium Echo free space anterior to the right ventricle likely represents a fat pad. No pericardial effusion. Aorta limted study this section was not interepreted CONCLUSIONS Technically difficult study Poorly visualized endocardium and intracardiac valves Normal LV systolic function Previewed by: Dr. Zach Robertson MD (Electronically Signed) Final Date: 22 January 2025 12:59
--- NOTE | 2025-01-22 13:38 | P.PN ---
Subjective Progress Note Date: 01/22/25 This is an 84-year-old gentleman who follows with Dr. Morales with a past medical history of CAD status post PCI at [place] in 2003, carotid disease status post carotid stent in [place] in 2021, hypertension, hyperlipidemia, persistent atrial fibrillation and type 2 diabetes. Presented to the hospital because of recurrent syncope passing out over the last 3 to 4 days. Also complained of dizziness, lightheadedness and generalized weakness. Recently treated for UTI. There was a concern for sepsis during this admission. Patient remains in atrial fibrillation with controlled ventricular response. Echocardiogram with Doppler study showed normal LV systolic function. PHYSICAL EXAMINATION: Neck: Brisk carotid upstroke, no jugular venous distention. Lungs: Minimal crackles with poor inspiratory effort Heart: Irregular pulse, mild systolic murmur audible Abdomen: Soft nontender, positive bowel sounds. Extremities: No edema, intact distal pulses. Neuro: Alert, oritented, no focal deficits. Detailed neuro exam was not performed. ASSESSMENT: # Generalized weakness and lightheadedness # Questionable fall, questionable syncope # Fever likely sepsis # Failure to thrive # Persistent atrial fibrillation # CAD status post PCI at [place] in 2003 # Carotid disease status post carotid stent in [place] 2021 # Essential hypertension # Dyslipidemia # Type 2 diabetes PLAN: From cardiology's perspective medications were reviewed and we will continue the same. Patient will be discharged home with a monitor to rule out any significant tachy or bradycardia episodes. He will follow-up in the office with Dr. Reed. COMM[employer]CTION SUPERINTENDENT note has been reviewed, I agree with a documented findings and plan of care. Patient was seen and examined. Objective - Vital Signs Vital signs: Vital Signs Temp 98.2 F 01/22/25 12:00 Pulse 68 01/22/25 12:09 Resp 18 01/22/25 12:09 BP 125/71 01/22/25 12:00 Pulse Ox 96 01/22/25 12:00 FiO2 Intake & Output 01/21/25 01/22/25 01/22/25 18:59 06:59 18:59 Intake Total 368 Output Total 999 1300 500 Balance -675 -7859 -547 Weight 115 kg Intake: IV 200 Cefepime 2 gm In Sodium 100 Chloride 0.9% 100 ml @ 25 mls/hr IVPB Q8H [facility] Rx#: [id number] Magnesium Sulfate-D5w Pmx 100 1 gm In Dextrose/Water 1 100ml.bag @ 100 mls/hr IVPB ONCE ONE Rx#: [id number] Oral 168 Output: Urine 999 1300 500 Other: Voiding Method Indwelling Catheter Indwelling Catheter - Labs CBC & Chem 7: 01/22/25 06:30 01/22/25 06:30 Labs: Abnormal Lab Results - Last 24 Hours (Table) 01/21/25 01/21/25 01/22/25 Range/Units 16:42 19:48 05:54 RBC (4.40-5.60) 10*6/uL Hgb (13.0-17.0) g/dL Hct (39.6-50.0) % Immature Gran # (0.00-0.04) 10*3/uL Lymphocytes # (0.90-5.00) 10*3/uL Sodium (137-145) mmol/L Chloride (98-107) mmol/L Carbon Dioxide (22-30) mmol/L Creatinine (0.66-1.25) mg/dL Glucose (74-99) mg/dL POC Glucose (mg/dL) 144 H 189 H 121 H (70-110) mg/dL Calcium (8.4-10.2) mg/dL 01/22/25 01/22/25 01/22/25 Range/Units 06:30 06:30 11:37 RBC 3.61 L (4.40-5.60) 10*6/uL Hgb 10.4 L (13.0-17.0) g/dL Hct 30.9 L (39.6-50.0) % Immature Gran # 0.08 H (0.00-0.04) 10*3/uL Lymphocytes # 0.82 L (0.90-5.00) 10*3/uL Sodium 136 L (137-145) mmol/L Chloride 111 H (98-107) mmol/L Carbon Dioxide 17 L (22-30) mmol/L Creatinine 0.63 L (0.66-1.25) mg/dL Glucose 118 H (74-99) mg/dL POC Glucose (mg/dL) 138 H (70-110) mg/dL Calcium 8.0 L (8.4-10.2) mg/dL Microbiology - Last 24 Hours (Table) 01/19/25 20:29 Blood Culture Gram Stain - Final Blood Blood Culture - Final Pseudomonas aeruginosa 01/19/25 08:43 Blood Culture Gram Stain - Final Blood Blood Culture - Final Pseudomonas aeruginosa Molecular ID
--- NOTE | 2025-01-22 13:57 | US ---
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 Poor historian. TECHNIQUE: Systolic pressures were taken of the upper extremity arteries with wrist brachial indices calculated. History of: Smoker: Unknown Hypertension: Unknown Diabetic: Unknown Hyperlipidemia: Unknown TIA/CVA: Unknown Previous Vascular Surgery: Unknown CAD: Unknown [place]: Unknown Vascular Ulcers: Unknown Claudication: Unknown Gangrene: Unknown FINDINGS: Doppler Waveforms: Right Digits: 1st: Monophasic waveforms 2nd: Monophasic waveforms 3rd: Monophasic waveforms 4th: Monophasic waveforms 5th: Monophasic waveforms Left Digits: 1st: Monophasic waveforms 2nd: Monophasic waveforms 3rd: Monophasic waveforms 4th: Monophasic waveforms 5th: Monophasic waveforms Right: Brachial: Deferred due to IV Left: Brachial: 125 Wrist Brachial Indices: Left: unable to obtain due to patient could not tolerate cuff at wrist IMPRESSION: Nondiagnostic exam. [facility], , 01/22/2025 1:55 PM
--- NOTE | 2025-01-22 14:33 | P.GSCN ---
History of Present Illness Consult date: 01/22/25 Reason for Consult: Ischemic left fifth digit is not Requesting physician: Miranda Mayes History of present illness: This is a 84-year-old male with multiple comorbidities who had come to the emergency department on January 18 complaining of back pain and apparently syncopal episodes and was found on the floor couple times during the past couple days. Patient being treated for sepsis from Pseudomonas infection. Apparently was noticed today that patient was complaining of left pinky pain and discoloration, primary medical team was concern for ischemic changes and ordered a vascular surgical consult. Patient states that his finger has been purple and painful for quite some time now prior to coming into the emergency department. Patient is very poor historian and does not give much information at this time. It is noted in his reports that he has fallen and was noted to be found on the ground at home. He has had multiple imaging including x-ray of the left hand that reported no gross evidence for acute osseous pathology, positive for osteopenia. Review of Systems A 14 point review systems was completed all pertinent positives and negatives as stated in the HPI. Past Medical History Past Medical History: Atrial Fibrillation, Coronary Artery Disease (CAD), Diabetes Mellitus, Hyperlipidemia, Hypertension, Syncope, Thyroid Disorder Additional Past Medical History / Comment(s): cardiac stents, carotid stent, AAA (states Dr is watching), hx kidney stones, hx of colon polyps, kidney infection History of Any Multi-Drug Resistant Organisms: None Reported Past Surgical History: Heart Catheterization With Stent, Tonsillectomy Additional Past Surgical History / Comment(s): 6 stents, charity cataracts Past Anesthesia/Blood Transfusion Reactions: No Reported Reaction Date of Last Stent Placement:: unknown Smoking Status: Former smoker - Past Family History Mother Family Medical History: No Reported History Medications and Allergies Home Medications Medication Instructions Recorded Confirmed Type Aspirin EC [Ecotrin Low Dose] 81 mg PO DAILY@0910/30/16 01/18/25 History Isosorbide Mononitrate ER [Imdur] 60 mg PO DAILY@89910/30/16 01/18/25 History Nitroglycerin Sl Tabs [Nitrostat] 0.4 mg SL Q5M PRN 10/30/16 01/18/25 History Omeprazole 20 mg PO HS@1800 10/30/16 01/18/25 History Levothyroxine Sodium [Synthroid] 50 mcg PO DAILY@0900 01/13/18 01/18/25 History Niacin (Inositol Niacinate) 500 mg PO HS@1800 10/19/20 01/18/25 History [Niacin 500 mg Capsule] Apixaban [Eliquis] 5 mg PO BID@0900,1800 09/26/24 01/18/25 History Atorvastatin [Lipitor] 40 mg PO DAILY@0900 09/26/24 01/18/25 History Dulaglutide [Trulicity] 0.75 mg SQ TH@0900 09/26/24 01/18/25 History Metoprolol Tartrate [Lopressor] 50 mg PO BID #60 tab 10/03/24 01/18/25 Rx Acetaminophen Tab [Tylenol Tab] 1,000 mg PO Q6H PRN 01/18/25 01/18/25 History Allergies Allergy/AdvReac Type Severity Reaction Status Date / Time No Known Allergies Allergy Verified 01/18/25 10:49 Surgical - Exam Vital Signs Temp Pulse Resp BP Pulse Ox 97.7 F 82 22 167/81 98 01/18/25 08:33 01/18/25 08:33 01/18/25 08:33 01/18/25 08:33 01/18/25 08:33 General appearance: The patient is alert, oriented, appears in no acute distress. Hard of hearing. HET: Head is normocephalic and atraumatic. Pupils are equal and reactive. Neck: Supple. Heart: Regular. Lungs: Equal expansion, normal respiratory effort. Abdomen: Soft, nontender, nondistended. Extremities: Palpable +2 by lateral radial pulses. Left hand fifth finger with some swelling, purple discoloration, brisk capillary refill, hand and fingers all warm to the touch. Neurological: Alert. Sensation intact. Results - Labs 01/22/25 06:30 01/22/25 06:30 Abnormal Lab Results - Last 24 Hours (Table) 01/21/25 01/21/25 01/22/25 Range/Units 16:42 19:48 05:54 RBC (4.40-5.60) 10*6/uL Hgb (13.0-17.0) g/dL Hct (39.6-50.0) % Immature Gran # (0.00-0.04) 10*3/uL Lymphocytes # (0.90-5.00) 10*3/uL Sodium (137-145) mmol/L Chloride (98-107) mmol/L Carbon Dioxide (22-30) mmol/L Creatinine (0.66-1.25) mg/dL Glucose (74-99) mg/dL POC Glucose (mg/dL) 144 H 189 H 121 H (70-110) mg/dL Calcium (8.4-10.2) mg/dL 01/22/25 01/22/25 01/22/25 Range/Units 06:30 06:30 11:37 RBC 3.61 L (4.40-5.60) 10*6/uL Hgb 10.4 L (13.0-17.0) g/dL Hct 30.9 L (39.6-50.0) % Immature Gran # 0.08 H (0.00-0.04) 10*3/uL Lymphocytes # 0.82 L (0.90-5.00) 10*3/uL Sodium 136 L (137-145) mmol/L Chloride 111 H (98-107) mmol/L Carbon Dioxide 17 L (22-30) mmol/L Creatinine 0.63 L (0.66-1.25) mg/dL Glucose 118 H (74-99) mg/dL POC Glucose (mg/dL) 138 H (70-110) mg/dL Calcium 8.0 L (8.4-10.2) mg/dL Microbiology - Last 24 Hours (Table) 01/19/25 20:29 Blood Culture Gram Stain - Final Blood Blood Culture - Final Pseudomonas aeruginosa 01/19/25 08:43 Blood Culture Gram Stain - Final Blood Blood Culture - Final Pseudomonas aeruginosa Molecular ID Diabetes panel 01/22/25 Range/Units 06:30 Sodium 136 L (137-145) mmol/L Potassium 3.9 (3.5-5.1) mmol/L Chloride 111 H (98-107) mmol/L Carbon Dioxide 17 L (22-30) mmol/L BUN 19 (9-20) mg/dL Creatinine 0.63 L (0.66-1.25) mg/dL Glucose 118 H (74-99) mg/dL Calcium 8.0 L (8.4-10.2) mg/dL Calcium panel 01/22/25 Range/Units 06:30 Calcium 8.0 L (8.4-10.2) mg/dL Pituitary panel 01/22/25 Range/Units 06:30 Sodium 136 L (137-145) mmol/L Potassium 3.9 (3.5-5.1) mmol/L Chloride 111 H (98-107) mmol/L Carbon Dioxide 17 L (22-30) mmol/L BUN 19 (9-20) mg/dL Creatinine 0.63 L (0.66-1.25) mg/dL Glucose 118 H (74-99) mg/dL Calcium 8.0 L (8.4-10.2) mg/dL Adrenal panel 01/22/25 Range/Units 06:30 Sodium 136 L (137-145) mmol/L Potassium 3.9 (3.5-5.1) mmol/L Chloride 111 H (98-107) mmol/L Carbon Dioxide 17 L (22-30) mmol/L BUN 19 (9-20) mg/dL Creatinine 0.63 L (0.66-1.25) mg/dL Glucose 118 H (74-99) mg/dL Calcium 8.0 L (8.4-10.2) mg/dL Assessment and Plan Assessment: 1. Left hand fifth digit pain with discoloration 2. Syncope and fall 3. Sepsis secondary to Pseudomonas bacteremia 4. Atrial fibrillation on anticoagulation Plan: 1. Upper extremity arterial ultrasound ordered 2. Further recommendations forthcoming per vascular surgeon Thank you for this consultation, we will continue to follow. The impression and plan of care has been dictated as directed. Dr. Hopkins I performed a history and examination of this patient, discussed the same with the dictator. I agree with the dictator's note ,documented as a scribe. Any additional findings or plans will be noted.
[2025-01-22 16:48] LABS: Glucose,Whole Blood 150 mg/dL (70-110)
--- NOTE | 2025-01-22 17:56 | P.PN ---
Subjective Progress Note Date: 01/22/25 This is an 84-year-old male patient with a known history of diabetes mellitus, hyperlipidemia, hypertension, carotid artery disease status post stent in 2021, coronary disease status post intervention in 2003, persistent atrial fibrillation. He presented here to the emergency room on January 18, 2025 with complaints of dizziness lightheadedness possible syncopal episode and generalized weakness. He had a rapid response team called on him on January 18 and again on January 19, 2025 for hypotension and high fevers. He was subsequently transferred here to the intensive care unit where he is seen in consultation today. Chest x-ray shows cardiomegaly and diffuse interstitial opacity mild fluid volume overload. EKG reveals atrial fibrillation with a controlled ventricular response. White count 7.1. Hemoglobin 9.0. Platelets 130. Sodium 135. Potassium 3.6. Bicarb 19. BUN 29. Creatinine 0.87. Glucose 102. Stool for occult blood is positive. Blood cultures showing gram-negative bacilli. He is currently on a heparin drip. Antibiotics in the form of cefepime. He was briefly on norepinephrine for blood pressure support. Current mean arterial pressures in the mid to upper 60s. He is resting in bed. Maintaining O2 saturations in the 90s to 100 on 2 L/min per nasal cannula. He is currently afebrile. The plan is for an MRI of the spine today looking for source of infection. On today's evaluation of 01/22/2025, the patient is being seen for a follow-up. The patient is being treated for pseudomonal septicemia and the patient remains on IV cefepime. Clinically stable. Hemodynamically stable. No fever. No chills. Mental status is appropriate and adequate at this point in time. However, the patient has developed pain in his left fifth finger and there is coldness and poor capillary refill and obvious ischemic changes. Based on that, recommended vascular consultation. Noted the patient has adequate radial and ulnar nerve pulses involving the left upper extremity. Patient is known to have chronic atrial fibrillation and he is maintained on anticoagulation with Eliqu is. He is known to have coronary artery disease, hypertension hyperlipidemia and diabetes mellitus. His undergone previous coronary stenting and is also known to have an abdominal aortic aneurysm. He is currently on IV cefepime. Rest of the medications are essentially unchanged. No surgical respiratory distress and the patient remains on room air oxygen with a pulse ox of 95%. Currently afebrile. Objective - Vital Signs Vital signs: Vital Signs Temp 98.1 F 01/22/25 08:00 Pulse 71 01/22/25 08:00 Resp 18 01/22/25 08:00 BP 138/69 01/22/25 08:00 Pulse Ox 96 01/22/25 08:00 FiO2 Intake & Output 01/21/25 01/22/25 01/22/25 18:59 06:59 18:59 Intake Total 368 Output Total 999 1300 500 Balance -631 -1300 -500 Weight 115 kg Intake: IV 200 Cefepime 2 gm In Sodium 100 Chloride 0.9% 100 ml @ 25 mls/hr IVPB Q8H [facility] Rx#: [id number] Magnesium Sulfate-D5w Pmx 100 1 gm In Dextrose/Water 1 100ml.bag @ 100 mls/hr IVPB ONCE ONE Rx#: [id number] Oral 168 Output: Urine 999 1300 500 Other: Voiding Method Indwelling Catheter Indwelling Catheter - Exam GENERAL EXAM: Alert, weak obese 84-year-old male, on room air oxygen, fairly comfortable in no apparent distress. HEAD: Normocephalic. EYES: Normal reaction of pupils, equal size. NOSE: Clear with pink turbinates. THROAT: No erythema or exudates. NECK: No masses, no JVD. CHEST: No chest wall deformity. LUNGS: Equal air entry with no crackles, wheeze, rhonchi or dullness. CVS: S1 and S2 normal with no audible murmur, regular rhythm. ABDOMEN: No hepatosplenomegaly, normal bowel sounds, no guarding or rigidity. SPINE: No scoliosis or deformity SKIN: No rashes CENTRAL NERVOUS SYSTEM: No focal deficits, tone is normal in all 4 extremities. EXTREMITIES: There is no peripheral edema. No clubbing, no cyanosis. Peripheral pulses are intact. - Labs CBC & Chem 7: 01/22/25 06:30 01/22/25 06:30 Labs: Abnormal Lab Results - Last 24 Hours (Table) 01/21/25 01/21/25 01/21/25 Range/Units 11:54 11:54 16:42 RBC 3.23 L (4.40-5.60) 10*6/uL Hgb 9.6 L (13.0-17.0) g/dL Hct 27.6 L (39.6-50.0) % Plt Count 119 L (140-440) 10*3/uL Immature Gran # 0.11 H (0.00-0.04) 10*3/uL Lymphocytes # 0.72 L (0.90-5.00) 10*3/uL APTT 55.0 H (22.0-30.0) sec Sodium (137-145) mmol/L Chloride (98-107) mmol/L Carbon Dioxide (22-30) mmol/L Creatinine (0.66-1.25) mg/dL Glucose (74-99) mg/dL POC Glucose (mg/dL) 144 H (70-110) mg/dL Calcium (8.4-10.2) mg/dL 01/21/25 01/22/25 01/22/25 Range/Units 19:48 05:54 06:30 RBC (4.40-5.60) 10*6/uL Hgb (13.0-17.0) g/dL Hct (39.6-50.0) % Plt Count (140-440) 10*3/uL Immature Gran # (0.00-0.04) 10*3/uL Lymphocytes # (0.90-5.00) 10*3/uL APTT (22.0-30.0) sec Sodium 136 L (137-145) mmol/L Chloride 111 H (98-107) mmol/L Carbon Dioxide 17 L (22-30) mmol/L Creatinine 0.63 L (0.66-1.25) mg/dL Glucose 118 H (74-99) mg/dL POC Glucose (mg/dL) 189 H 121 H (70-110) mg/dL Calcium 8.0 L (8.4-10.2) mg/dL 01/22/25 01/22/25 Range/Units 06:30 11:37 RBC 3.61 L (4.40-5.60) 10*6/uL Hgb 10.4 L (13.0-17.0) g/dL Hct 30.9 L (39.6-50.0) % Plt Count (140-440) 10*3/uL Immature Gran # 0.08 H (0.00-0.04) 10*3/uL Lymphocytes # 0.82 L (0.90-5.00) 10*3/uL APTT (22.0-30.0) sec Sodium (137-145) mmol/L Chloride (98-107) mmol/L Carbon Dioxide (22-30) mmol/L Creatinine (0.66-1.25) mg/dL Glucose (74-99) mg/dL POC Glucose (mg/dL) 138 H (70-110) mg/dL Calcium (8.4-10.2) mg/dL Microbiology - Last 24 Hours (Table) 01/19/25 20:29 Blood Culture Gram Stain - Final Blood Blood Culture - Final Pseudomonas aeruginosa 01/19/25 08:43 Blood Culture Gram Stain - Final Blood Blood Culture - Final Pseudomonas aeruginosa Molecular ID Assessment and Plan Plan: Sepsis with septic shock secondary to Pseudomonas aeruginosa septicemia, current ly on IV cefepime. Clinically and hemodynamically stable. Hypotension with dizziness and near syncope secondary to above, recovered Febrile illness secondary to above, recovered and the patient is currently afebrile Left hand fifth digit ischemia, likely arterial, rule out septic embolism versus microvascular embolism and the patient is to be seen by vascular surgery. Anemia with stool for occult blood positive Acute low back pain, MRI of the lumbar spine was completed and the patient has no evidence of discitis. 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 Atrial fibrillation anticoagulated with Eliquis, Hypertension, history of Hyperlipidemia Coronary artery disease status post stent placement Carotid artery disease status post repair Plan: The patient has pseudomonal septicemia. Exact source of the sepsis is not clear. MRI of the lumbar spine showed no evidence of any discitis or paraspinal abscess. Rule out underlying urinary tract infection with secondary pseudomonal septicemia. Rule out skin source of infection. No evidence of any pneumonia. Cannot rule out possibility of endocarditis. Consider a KATHY. Limited echocardiogram done on 01/22/2025 showed a preserved LV function with an ejection fraction of 6065%, valves were not adequately addressed. Currently cefepime Infectious diseases on the case Briefly required norepinephrine, currently hemodynamically stable and off pressors Currently stable and on normal saline at 50 cc an hour continue anticoagulation with Eliquis Vascular surgery consultation regarding the ischemic left fifth digit. Titrate the FiO2 as needed, currently on room air oxygen We will continue to follow and make further recommendations based on his clinical status
[2025-01-22 20:08] LABS: Glucose,Whole Blood 156 mg/dL (70-110)
[2025-01-23] MEDS: HYDROmorphone 0.5 MG/0.5 ML SYRINGE IVP PRN (03:18)
[2025-01-23 06:10] LABS: Glucose,Whole Blood 109 mg/dL (70-110)
--- NOTE | 2025-01-23 07:02 | P.PN ---
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 Associated close nonspecific dizziness but no headache. No specific limb weakness or numbness or blurred vision or double vision He has some vision problems and he follow-up with Dr. partida He denies chest pain or dyspnea. No other specific GI/ symptoms He has mild headache about 2-3/10 on the right side He states that recently he has been treated for UTI however he denies any urinary symptoms and urinalysis is negative. Vital stable afebrile. Is mildly tachycardic with heart rate 102. CBC BMP LFT and liver enzymes were unremarkable. Troponin is negative less than 0.012. Urinalysis normal. Chest x-ray showing no acute cardiopulmonary process EKG showing sinus tachycardia congestion with no significant ST-T changes but there is multiple PV Cs. He was started on aspirin 325 mg admitted with cardiology team consult Patient currently complains from spasm in his lower back that comes severely for a few seconds before letting go 01/19 Patient awake alert not in distress today. He feels better he says he can get up today compared to yesterday but he still complaining from back pain His back pain looks better than yesterday like 10/19 however once he try to move his leg even with little bend of the knee he developed severe pain in the lower back. No chest pain dyspnea or abdominal pain or tenderness.. He spiked a fever 104 overnight. Labs from yesterday showing WBC 10.2 hemoglobin 12.7. INR 1.1. Potassium is 4.4 creatinine 1.07. Patient still getting normal saline 75 mL/h. He is on Dilaudid for pain control also he is on aspirin Eliquis and Pepcid 01/20 Patient clinically the same, awake alert complaining from severe low back pain. Dilaudid 0.5 mg was not enough we will increase the dose to 1 mg. No chest pain no headache or dizziness no other new complaints. He is currently on antibiotic IV vancomycin and cefepime. Also infectious disease team following closely. Blood culture is coming back positive pending sensitivity and further evaluation. Because of spine infection is suspected. Patient may require procedure we going to hold Eliquis starting tonight. He got dose this morning. We are going to start bridging heparin tonight. Patient received boluses of normal saline, hypotension improved, creatinine function is stable. MRI of the spine with and without contrast ordered by infectious disease team. Is going to be done tonight however because of his fever it was held this afternoon. We are treating his fever aggressively with Tylenol, ibuprofen ordered and cooling blanket. Blood pressure is also monitored closely and discussed with the staff to give boluses if required. 01/21 Patient was hypotensive overnight and he was transferred to the ICU. They gave him only a small bolus of normal saline 500 cc which apparently was not enough. With getting more fluid his blood pressure improved. He did not really need any pressors. Eventually patient was transferred back to the general medical floor today. His back pain controlled with Dilaudid MRI showed no epidural abscess but there is severe spinal stenosis at L3-L4. Neurology service recommended orthopedic follow-up as an outpatient not candidate for any surgical intervention because septic. Patient currently covered with cefepime, 2 blood culture samples came back positive for Pseudomonas. Cardiology team on the case echocardiogram requested. Also cardio recommend Holter monitor as an outpatient. 01/22/2025 Patient is seen in follow-up currently sitting up in the chair being followed by multiple consultations maintained on antibiotics with infectious disease following as patient's cultures were positive for Pseudomonas. Patient continues with significant weakness although per case management, family reports will be going home. Patient has extremely weak and would benefit from ECF. Patient also having some left pinky pain and discoloration with concerns of possible ischemia to this left pinky and vascular surgery has been consulted recommending a Doppler of the left extremity. Patient is afebrile and reports to not feeling well and generally weak. Recommend PT/OT therapy evaluation and reevaluation with discussion of possible ECF on discharge. Patient with significant comorbidities and continued ongoing difficulties, patient would benefit from ECF for continued strength and mobility. Review of systems: Constitutional: reports of fatigue, no fever, or chills Cardiovascular: No reports of chest pain or palpitations Respiratory: No reports of shortness of breath or cough GI: No reports of nausea, vomiting, or diarrhea, reports not eating much : No reports of dysuria or retention Neurovascular: reports of generalized weakness with difficulty in ambulating, left pinky finger pain and discoloration All medications have been reviewed Physical exam: -GENERAL: The patient is alert and oriented x3, not in any acute distress. Well developed, elderly appearing, chronically ill appearing. Obese HEENT: Pupils are round and equally reacting to light. EOMI. No scleral icterus. No conjunctival pallor. Normocephalic, atraumatic. No pharyngeal erythema. No thyromegaly. CARDIOVASCULAR: S1 and S2 muffled PULMONARY: Diminished breath sounds bilaterally otherwise chest is clear to auscultation, no wheezing , no crackles. ABDOMEN: Soft, obese, nontender, nondistended, normoactive bowel sounds. No palpable organomegaly. MUSCULOSKELETAL: No joint swelling or deformity. EXTREMITIES: No cyanosis, clubbing, or pedal edema. Left finger fifth digit cyanotic with delayed capillary refill over 5 seconds, cool to the touch NEUROLOGICAL: Gross neurological examination did not reveal any focal deficits. Diffusely weak SKIN: No rashes. no petechiae. Assessment: Severe sepsis with septic shock with Pseudomonas bacteremia on admission and leukocytosis, elevated lactic acid, improved Pseudomonas bacteremia, unknown source with infectious disease following Recurrent syncope and falling, last few seconds with no seizure activity Fever of unknown origin, on admission Left fifth digit finger discoloration, cyanotic, cold to the touch with concerns of microvascular embolism, possible ischemia, Doppler ordered and pending Acute severe lower back pain, secondary to severe lumbar spinal stenosis seen on the MRI, no evidence of osteomyelitis or discitis Generalized weakness and gait dysfunction Hypomagnesemia, being replaced Dehydration secondary to poor oral intake A-fib with mild RVR Hypertension Hyperlipidemia Coronary disease status post stent Obesity with a BMI of 36.3 AAA GI prophylaxis DVT prophylaxis Full code Plan: Continue with antibiotic cefepime. Follow-up blood culture results, infectious disease following and will continue and await cultures Echocardiogram ordered and pending Continue gentle hydration with improvement in blood pressure Continue heparin for now and will await resuming Eliquis and aspirin. As there is concerned of left fifth digit ischemia versus microvascular embolism and awaiting vascular surgery consultation Pain management with Dilaudid [place] and Tylenol, limit IV Dilaudid use Neurology following undergoing workup Follow-up on repeat labs and replace electrolytes per protocol Recommend PT/OT therapy reevaluation as patient and family were persistent on patient going home although patient is significantly weak with prolonged hospitalization and continued falls, would benefit from ECF Patient is high risk for readmissions given significant comorbidities The impression and plan of care has been dictated by Vicky Alvarado, Nurse Practitioner as directed. This is the verbal consent since Dr. Jake MD I have performed a history and examination and MDM of this patient, discussed the same with the dictator, and agree with the dictator's assessment and plan as written ,documented as a scribe. Based on total visit time, I have performed more than 50% of the visit. Objective - Vital Signs Vital signs: Vital Signs Temp 98.1 F 01/22/25 08:00 Pulse 71 01/22/25 08:00 Resp 18 01/22/25 08:00 BP 138/69 01/22/25 08:00 Pulse Ox 96 01/22/25 08:00 FiO2 Intake & Output 01/21/25 01/22/25 01/22/25 18:59 06:59 18:59 Intake Total 368 Output Total 999 1300 Balance -631 -1300 Weight 115 kg Intake: IV 200 Cefepime 2 gm In Sodium 100 Chloride 0.9% 100 ml @ 25 mls/hr IVPB Q8H [facility] Rx#: [id number] Magnesium Sulfate-D5w Pmx 100 1 gm In Dextrose/Water 1 100ml.bag @ 100 mls/hr IVPB ONCE ONE Rx#: [id number] Oral 168 Output: Urine 999 1300 Other: Voiding Method Indwelling Catheter Indwelling Catheter - Labs CBC & Chem 7: 01/22/25 06:30 01/22/25 06:30 Labs: Abnormal Lab Results - Last 24 Hours (Table) 01/21/25 01/21/25 01/21/25 Range/Units 11:17 11:54 11:54 RBC 3.23 L (4.40-5.60) 10*6/uL Hgb 9.6 L (13.0-17.0) g/dL Hct 27.6 L (39.6-50.0) % Plt Count 119 L (140-440) 10*3/uL Immature Gran # 0.11 H (0.00-0.04) 10*3/uL Lymphocytes # 0.72 L (0.90-5.00) 10*3/uL APTT 55.0 H (22.0-30.0) sec Sodium (137-145) mmol/L Chloride (98-107) mmol/L Carbon Dioxide (22-30) mmol/L Creatinine (0.66-1.25) mg/dL Glucose (74-99) mg/dL POC Glucose (mg/dL) 127 H (70-110) mg/dL Calcium (8.4-10.2) mg/dL 01/21/25 01/21/25 01/22/25 Range/Units 16:42 19:48 05:54 RBC (4.40-5.60) 10*6/uL Hgb (13.0-17.0) g/dL Hct (39.6-50.0) % Plt Count (140-440) 10*3/uL Immature Gran # (0.00-0.04) 10*3/uL Lymphocytes # (0.90-5.00) 10*3/uL APTT (22.0-30.0) sec Sodium (137-145) mmol/L Chloride (98-107) mmol/L Carbon Dioxide (22-30) mmol/L Creatinine (0.66-1.25) mg/dL Glucose (74-99) mg/dL POC Glucose (mg/dL) 144 H 189 H 121 H (70-110) mg/dL Calcium (8.4-10.2) mg/dL 01/22/25 01/22/25 Range/Units 06:30 06:30 RBC 3.61 L (4.40-5.60) 10*6/uL Hgb 10.4 L (13.0-17.0) g/dL Hct 30.9 L (39.6-50.0) % Plt Count (140-440) 10*3/uL Immature Gran # 0.08 H (0.00-0.04) 10*3/uL Lymphocytes # (0.90-5.00) 10*3/uL APTT (22.0-30.0) sec Sodium 136 L (137-145) mmol/L Chloride 111 H (98-107) mmol/L Carbon Dioxide 17 L (22-30) mmol/L Creatinine 0.63 L (0.66-1.25) mg/dL Glucose 118 H (74-99) mg/dL POC Glucose (mg/dL) (70-110) mg/dL Calcium 8.0 L (8.4-10.2) mg/dL Microbiology - Last 24 Hours (Table) 01/19/25 20:29 Blood Culture Gram Stain - Preliminary Blood Blood Culture - Preliminary Pseudomonas aeruginosa 01/19/25 08:43 Blood Culture Gram Stain - Preliminary Blood Blood Culture - Preliminary Pseudomonas aeruginosa Molecular ID
[2025-01-23 07:03] LABS: Basophils # (A) 0.03 10*3/uL (0.00-0.10); Basophils % (A) 0.5 %; Eosinophils # (A) 0.14 10*3/uL (0.04-0.35); Eosinophils % (A) 2.6 %; HCT 28.1 % (39.6-50.0); HGB 9.4 g/dL (13.0-17.0); Lymphocytes # (A) 0.94 10*3/uL (0.90-5.00); Lymphocytes % (A) 17.2 %; MCH 28.5 pg (27.0-32.0); MCHC 33.5 g/dL (32.0-37.0); MCV 85.2 fL (80.0-97.0); Monocytes # (A) 0.44 10*3/uL (0.20-1.00); Monocytes % (A) 8.1 %; Neutrophils # (A) 3.87 10*3/uL (1.80-7.70); Neutrophils % (A) 70.9 %; Platelet Count 146 10*3/uL (140-440); RBC 3.30 10*6/uL (4.40-5.60); RDW 14.3 % (11.5-14.5); WBC 5.46 10*3/uL (4.50-10.00)
[2025-01-23 07:15] LABS: African American GFR (CKD) >90 (>60 ml/min/1.73 sqM); Anion Gap 8 mmol/L; Blood Urea Nitrogen 16 mg/dL (9-20); Calcium 7.8 mg/dL (8.4-10.2); Carbon Dioxide 18 mmol/L (22-30); Chloride 110 mmol/L (98-107); Glucose 106 mg/dL (74-99); Magnesium 1.4 mg/dL (1.6-2.3); Non-African American GFR(CKD) 88 (>60 ml/min/1.73 sqM); Potassium 3.8 mmol/L (3.5-5.1); Sodium 136 mmol/L (137-145)
[2025-01-23] MEDS: MAGNESIUM SULFATE-D5W PMX 1 GM in DEXTROSE/WATER 1 100ML.BAG IVPB SCH (09:08)
[2025-01-23 11:41] LABS: Glucose,Whole Blood 125 mg/dL (70-110)
--- NOTE | 2025-01-23 13:20 | P.PN ---
Subjective Progress Note Date: 01/23/25 I am seeing the patient for the first time. Please refer to Dr. Robles's notes for further details. It seems that the patient had near syncopal spell and it was felt due to orthostatic hypotension versus SIRS related. Patient had septic shock heard upon seeing the patient feel he is doing well and denies any focal weakness numbness. Objective - Vital Signs Vital signs: Vital Signs Temp 98.2 F 01/23/25 08:00 Pulse 59 L 01/23/25 12:00 Resp 18 01/23/25 12:00 BP 99/51 01/23/25 12:00 Pulse Ox 97 01/23/25 12:00 FiO2 Intake & Output 01/22/25 01/23/25 01/23/25 18:59 06:59 18:59 Intake Total 358 Output Total 700 525 375 Balance -700 -525 -17 Weight 118 kg Intake: Oral 358 Output: Urine 700 525 375 Other: Voiding Method Indwelling Catheter Indwelling Catheter - Exam General: Laying in bed and is not in acute distress. Neuro: Patient was initially sleeping prior to my examination and then just woke up but he is oriented to self place and time. Is following simple commands. No aphasia. Visual wright are full to confrontation. No facial weakness. No dysarthria Motor: Strength is 5 out of 5 in the upper. In the lowers he is able to wiggle the toes symmetrically but states he has chronic lower back pain as a result able to lift with lower. - Labs CBC & Chem 7: 01/23/25 06:10 01/23/25 06:10 Labs: Abnormal Lab Results - Last 24 Hours (Table) 01/22/25 01/22/25 01/23/25 Range/Units 16:46 20:06 06:10 RBC 3.30 L (4.40-5.60) 10*6/uL Hgb 9.4 L (13.0-17.0) g/dL Hct 28.1 L (39.6-50.0) % Sodium (137-145) mmol/L Chloride (98-107) mmol/L Carbon Dioxide (22-30) mmol/L Glucose (74-99) mg/dL POC Glucose (mg/dL) 150 H 156 H (70-110) mg/dL Calcium (8.4-10.2) mg/dL Magnesium (1.6-2.3) mg/dL 01/23/25 01/23/25 Range/Units 06:10 11:40 RBC (4.40-5.60) 10*6/uL Hgb (13.0-17.0) g/dL Hct (39.6-50.0) % Sodium 136 L (137-145) mmol/L Chloride 110 H (98-107) mmol/L Carbon Dioxide 18 L (22-30) mmol/L Glucose 106 H (74-99) mg/dL POC Glucose (mg/dL) 125 H (70-110) mg/dL Calcium 7.8 L (8.4-10.2) mg/dL Magnesium 1.4 L (1.6-2.3) mg/dL Microbiology - Last 24 Hours (Table) 01/22/25 06:30 Blood Culture Gram Stain - Preliminary Blood Blood Culture - Preliminary Molecular ID 01/19/25 20:29 Blood Culture Gram Stain - Final Blood Blood Culture - Final Pseudomonas aeruginosa 01/19/25 08:43 Blood Culture Gram Stain - Final Blood Blood Culture - Final Pseudomonas aeruginosa Molecular ID Assessment and Plan Assessment: * Near syncopal spells, likely due to orthostatic hypotension versus SIRS related. Rule out other causes. * Septic shock, with hypotension. Exact source uncertain, no evidence of discitis osteomyelitis * Bacteremia with Pseudomonas aeruginosa * Hypertension * Diabetes * Hyperlipidemia * lumbar spinal stenosis, severe at L3-L4 and L4-L5 levels. * Atrial fibrillation, on Eliquis * Coronary artery disease * Hypothyroidism * X tobacco use Plan: * EEG was abnormal due to background slowing, suggestive of mild to moderate encephalopathy. No focal, lateralized or epileptiform activity was seen. No indication for antiepileptic medication. * Continue Eliquis for atrial fibrillation * 2-D echo: It is reported as technically difficult study. Poorly visualized echocardiogram and intracardiac valves. Normal left ventricular systolic function. * Neurology perspective patient may need transesophageal endocardiogram (KATHY). * Carotid Doppler on 09/29/2024 revealed bilateral carotid stents without elevated velocities to suggest hemodynamically significant stenosis of the ICAs. Plaque is seen within the bilateral CCA extending into the ICA and ECA. Antegrade flow in both vertebral arteries. No need to repeat carotid Doppler. * MRI of the lumbar spine with and without contrast revealed grade 1 anterolisthesis of L5 on S1. 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 Moderate L3-4 right paracentral disc herniation. Severe spinal stenosis at L3-L4 and L4-L5 levels. Mild neural foraminal stenosis at L4-L5 and L5-S1 level on the left. I personally reviewed MRI, agree with the findings. * Recommend follow-up with orthopedic spine outpatient. At present patient is septic, not a candidate for any intervention. * Patient currently on cefepime and will defer antibiotic management to ID team. Otherwise no additional neurological workup. Will sign off. Please reconsult if needed. Time with Patient: Less than 30
--- NOTE | 2025-01-23 14:02 | P.PN ---
Subjective Progress Note Date: 01/23/25 This is an 84-year-old male patient with a known history of diabetes mellitus, hyperlipidemia, hypertension, carotid artery disease status post stent in 2021, coronary disease status post intervention in 2003, persistent atrial fibrillation. He presented here to the emergency room on January 18, 2025 with complaints of dizziness lightheadedness possible syncopal episode and generalized weakness. He had a rapid response team called on him on January 18 and again on January 19, 2025 for hypotension and high fevers. He was subsequently transferred here to the intensive care unit where he is seen in consultation today. Chest x-ray shows cardiomegaly and diffuse interstitial opacity mild fluid volume overload. EKG reveals atrial fibrillation with a controlled ventricular response. White count 7.1. Hemoglobin 9.0. Platelets 130. Sodium 135. Potassium 3.6. Bicarb 19. BUN 29. Creatinine 0.87. Glucose 102. Stool for occult blood is positive. Blood cultures showing gram-negative bacilli. He is currently on a heparin drip. Antibiotics in the form of cefepime. He was briefly on norepinephrine for blood pressure support. Current mean arterial pressures in the mid to upper 60s. He is resting in bed. Maintaining O2 saturations in the 90s to 100 on 2 L/min per nasal cannula. He is currently afebrile. The plan is for an MRI of the spine today looking for source of infection. On today's evaluation of 01/22/2025, the patient is being seen for a follow-up. The patient is being treated for pseudomonal septicemia and the patient remains on IV cefepime. Clinically stable. Hemodynamically stable. No fever. No chills. Mental status is appropriate and adequate at this point in time. However, the patient has developed pain in his left fifth finger and there is coldness and poor capillary refill and obvious ischemic changes. Based on that, recommended vascular consultation. Noted the patient has adequate radial and ulnar nerve pulses involving the left upper extremity. Patient is known to have chronic atrial fibrillation and he is maintained on anticoagulation with Eliqu is. He is known to have coronary artery disease, hypertension hyperlipidemia and diabetes mellitus. His undergone previous coronary stenting and is also known to have an abdominal aortic aneurysm. He is currently on IV cefepime. Rest of the medications are essentially unchanged. No surgical respiratory distress and the patient remains on room air oxygen with a pulse ox of 95%. Currently afebrile. On today's evaluation of 01/23/2025, the patient remains on IV cefepime for pseudomonal septicemia. Hemodynamically stable. Some occasional confusion yet for the most part, no focal neurological deficit and the patient is awake alert and communicating. Pulse ox 97% room air oxygen. ID is on the case. The patient was also seen by vascular surgery regarding the left finger cyanosis and pain which is attributed to microvascular ischemia. The patient had a 2D echocardiogram that was technically difficult. The patient has essentially normal LV function. The patient remains on anticoagulation regarding atrial fibrillation the patient remains on anticoagulation with Eliquis. Blood work from today shows a white cell count of 5.4 with a heme of 9.4 and platelet count of 146. BUN 16 with a creatinine of 0.7 and the patient's sodium level is at 136. No other significant events overnight. Objective - Vital Signs Vital signs: Vital Signs Temp 98 F 01/23/25 03:20 Pulse 75 01/23/25 03:20 Resp 18 01/23/25 03:20 BP 155/69 01/23/25 03:20 Pulse Ox 98 01/23/25 03:20 FiO2 Intake & Output 01/22/25 01/23/25 01/23/25 18:59 06:59 18:59 Intake Total 118 Output Total 700 525 Balance -700 -525 118 Weight 118 kg Intake: Oral 118 Output: Urine 700 525 Other: Voiding Method Indwelling Catheter - Exam GENERAL EXAM: Alert, weak obese 84-year-old male, on room air oxygen, fairly comfortable in no apparent distress. HEAD: Normocephalic. EYES: Normal reaction of pupils, equal size. NOSE: Clear with pink turbinates. THROAT: No erythema or exudates. NECK: No masses, no JVD. CHEST: No chest wall deformity. LUNGS: Equal air entry with no crackles, wheeze, rhonchi or dullness. CVS: S1 and S2 normal with no audible murmur, regular rhythm. ABDOMEN: No hepatosplenomegaly, normal bowel sounds, no guarding or rigidity. SPINE: No scoliosis or deformity SKIN: No rashes CENTRAL NERVOUS SYSTEM: No focal deficits, tone is normal in all 4 extremities. EXTREMITIES: There is no peripheral edema. No clubbing, no cyanosis. Peripheral pulses are intact. - Labs CBC & Chem 7: 07/15/25 06:10 01/23/25 06:10 Labs: Abnormal Lab Results - Last 24 Hours (Table) 01/22/25 01/22/25 01/22/25 Range/Units 06:30 11:37 16:46 RBC (4.40-5.60) 10*6/uL Hgb (13.0-17.0) g/dL Hct (39.6-50.0) % Lymphocytes # 0.82 L (0.90-5.00) 10*3/uL Sodium (137-145) mmol/L Chloride (98-107) mmol/L Carbon Dioxide (22-30) mmol/L Glucose (74-99) mg/dL POC Glucose (mg/dL) 138 H 150 H (70-110) mg/dL Calcium (8.4-10.2) mg/dL Magnesium (1.6-2.3) mg/dL 01/22/25 01/23/25 01/23/25 Range/Units 20:06 06:10 06:10 RBC 3.30 L (4.40-5.60) 10*6/uL Hgb 9.4 L (13.0-17.0) g/dL Hct 28.1 L (39.6-50.0) % Lymphocytes # (0.90-5.00) 10*3/uL Sodium 136 L (137-145) mmol/L Chloride 110 H (98-107) mmol/L Carbon Dioxide 18 L (22-30) mmol/L Glucose 106 H (74-99) mg/dL POC Glucose (mg/dL) 156 H (70-110) mg/dL Calcium 7.8 L (8.4-10.2) mg/dL Magnesium 1.4 L (1.6-2.3) mg/dL Microbiology - Last 24 Hours (Table) 01/19/25 20:29 Blood Culture Gram Stain - Final Blood Blood Culture - Final Pseudomonas aeruginosa 01/19/25 08:43 Blood Culture Gram Stain - Final Blood Blood Culture - Final Pseudomonas aeruginosa Molecular ID Assessment and Plan Plan: Sepsis with septic shock secondary to Pseudomonas aeruginosa septicemia, currradha tly on IV cefepime. Clinically and hemodynamically stable. ID is on the case. Exact source of the pseudomonal septicemia is not clear at this point. Hypotension with dizziness and near syncope secondary to above, recovered Febrile illness secondary to above, recovered and the patient is currently afebrile Left hand fifth digit ischemia, likely arterial, rule out septic embolism versus microvascular embolism and the patient is to be seen by vascular surgery. Anemia with stool for occult blood positive Acute low back pain, MRI of the lumbar spine was completed and the patient has no evidence of discitis. 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 Atrial fibrillation anticoagulated with Eliquis, Hypertension, history of Hyperlipidemia Coronary artery disease status post stent placement Carotid artery disease status post repair Plan: The patient has pseudomonal septicemia. Exact source of the sepsis is not clear. MRI of the lumbar spine showed no evidence of any discitis or paraspinal abscess. Rule out underlying urinary tract infection with secondary pseudomonal septicemia. Rule out skin source of infection. No evidence of any pneumonia. Cannot rule out possibility of endocarditis. Consider a KATHY. Limited echoca rdiogram done on 01/22/2025 showed a preserved LV function with an ejection fraction of 6065%, valves were not adequately addressed. Currently cefepime Infectious diseases on the case Briefly required norepinephrine, currently hemodynamically stable and off pressors Currently stable and on normal saline at 50 cc an hour continue anticoagulation with Eliquis Vascular surgery consultation regarding the ischemic left fifth digit. Titrate the FiO2 as needed, currently on room air oxygen We will continue to follow and make further recommendations based on his clinical status
--- NOTE | 2025-01-23 14:09 | P.PN ---
Subjective Progress Note Date: 01/23/25 Principal diagnosis: Finger pain and discoloration Patient is seen and examined today as a follow-up. Patient seems more alert and oriented today. He states his finger is feeling better as well as the discoloration has improved. He states that his finger had been painful swollen and discolored for at least a week if not more prior to him coming into the hospital. He states that he had fallen twice prior to coming into the hospital but he does not recall injuring that hand. Yesterday he underwent arterial ultrasound with monophasic waveforms, PERICO on the left unable to be obtained secondary to patient's discomfort. Objective - Vital Signs Vital signs: Vital Signs Temp 98 F 01/23/25 03:20 Pulse 75 01/23/25 03:20 Resp 18 01/23/25 03:20 BP 155/69 01/23/25 03:20 Pulse Ox 98 01/23/25 03:20 FiO2 Intake & Output 01/22/25 01/23/25 01/23/25 18:59 06:59 18:59 Intake Total 118 Output Total 700 525 Balance -700 -525 118 Weight 118 kg Intake: Oral 118 Output: Urine 700 525 Other: Voiding Method Indwelling Catheter - Exam General appearance: The patient is alert, oriented, appears in no acute distress. HET: Head is normocephalic and atraumatic. Pupils are equal and reactive. Neck: Supple. Extremities: Palpable bilateral +2 radial pulses. Hands are warm to the touch. Left hand fifth finger discoloration improving, nailbed and skin less purple, distal tip slightly cool. Good capillary refill. Neurological: Alert and oriented. - Labs CBC & Chem 7: 01/23/25 06:10 01/23/25 06:10 Labs: Abnormal Lab Results - Last 24 Hours (Table) 01/22/25 01/22/25 01/22/25 Range/Units 06:30 11:37 16:46 RBC (4.40-5.60) 10*6/uL Hgb (13.0-17.0) g/dL Hct (39.6-50.0) % Lymphocytes # 0.82 L (0.90-5.00) 10*3/uL Sodium (137-145) mmol/L Chloride (98-107) mmol/L Carbon Dioxide (22-30) mmol/L Glucose (74-99) mg/dL POC Glucose (mg/dL) 138 H 150 H (70-110) mg/dL Calcium (8.4-10.2) mg/dL Magnesium (1.6-2.3) mg/dL 01/22/25 01/23/25 01/23/25 Range/Units 20:06 06:10 06:10 RBC 3.30 L (4.40-5.60) 10*6/uL Hgb 9.4 L (13.0-17.0) g/dL Hct 28.1 L (39.6-50.0) % Lymphocytes # (0.90-5.00) 10*3/uL Sodium 136 L (137-145) mmol/L Chloride 110 H (98-107) mmol/L Carbon Dioxide 18 L (22-30) mmol/L Glucose 106 H (74-99) mg/dL POC Glucose (mg/dL) 156 H (70-110) mg/dL Calcium 7.8 L (8.4-10.2) mg/dL Magnesium 1.4 L (1.6-2.3) mg/dL Microbiology - Last 24 Hours (Table) 01/19/25 20:29 Blood Culture Gram Stain - Final Blood Blood Culture - Final Pseudomonas aeruginosa 01/19/25 08:43 Blood Culture Gram Stain - Final Blood Blood Culture - Final Pseudomonas aeruginosa Molecular ID Assessment and Plan Assessment: 1. Left hand fifth digit pain with discoloration, possible etiologies include septic embolism, injury from fall 2. Syncope and fall 3. Sepsis secondary to Pseudomonas bacteremia 4. Atrial fibrillation on anticoagulation Plan: 1. Upper extremity arterial ultrasound ordered and reviewed 2. There is improvement in pain and discoloration. No planned intervention at this time. Thank you for this consultation, then outpatient follow-up with vascular surgery in 1 to 2 weeks. The impression and plan of care has been dictated as directed. Dr. Hopkins I performed a history and examination of this patient, discussed the same with the dictator. I agree with the dictator's note ,documented as a scribe. Any additional findings or plans will be noted.
[2025-01-23 16:36] LABS: Glucose,Whole Blood 162 mg/dL (70-110)
--- NOTE | 2025-01-23 16:42 | P.PN ---
Subjective Progress Note Date: 01/22/25 Principal diagnosis: Reason for follow-up is fever/Pseudomonas bacteremia Patient is a 84-year-old male with a past medical history significant for Atrial Fibrillation, Coronary Artery Disease (CAD), Diabetes Mellitus, Hyperlipidemia, Hypertension, Syncope, Thyroid Disorder presenting to the hospital for evaluation of weakness and back pain did have a fever prompting this consultation. On today's evaluation that is 01/22/2025, patient has been afebrile, patient is breathing comfortably and is currently on room air, patient denies having any chest pain and cough, patient denies nausea vomiting or diarrhea and no abdominal pain Patient did have a white count of 8.23 creatinine 0.63 Objective - Vital Signs Vital signs: Vital Signs Temp 98.2 F 01/22/25 12:00 Pulse 68 01/22/25 12:09 Resp 18 01/22/25 12:09 BP 125/71 01/22/25 12:00 Pulse Ox 96 01/22/25 12:00 FiO2 Intake & Output 01/21/25 01/22/25 01/22/25 18:59 06:59 18:59 Intake Total 368 Output Total 999 1300 500 Balance -631 -1300 -500 Weight 115 kg Intake: IV 200 Cefepime 2 gm In Sodium 100 Chloride 0.9% 100 ml @ 25 mls/hr IVPB Q8H [facility] Rx#: [id number] Magnesium Sulfate-D5w Pmx 100 1 gm In Dextrose/Water 1 100ml.bag @ 100 mls/hr IVPB ONCE ONE Rx#: [id number] Oral 168 Output: Urine 999 1300 500 Other: Voiding Method Indwelling Catheter Indwelling Catheter - Exam GENERAL DESCRIPTION: An elderly male lying in bed in no distress RESPIRATORY SYSTEM: Unlabored breathing , decreased breath sounds at bases HEART: S1 S2 regular rate and rhythm , ABDOMEN: Soft , no tenderness EXTREMITIES: No edema feet - Labs CBC & Chem 7: 01/23/25 06:10 01/23/25 06:10 Labs: Abnormal Lab Results - Last 24 Hours (Table) 01/21/25 01/21/25 01/22/25 Range/Units 16:42 19:48 05:54 RBC (4.40-5.60) 10*6/uL Hgb (13.0-17.0) g/dL Hct (39.6-50.0) % Immature Gran # (0.00-0.04) 10*3/uL Lymphocytes # (0.90-5.00) 10*3/uL Sodium (137-145) mmol/L Chloride (98-107) mmol/L Carbon Dioxide (22-30) mmol/L Creatinine (0.66-1.25) mg/dL Glucose (74-99) mg/dL POC Glucose (mg/dL) 144 H 189 H 121 H (70-110) mg/dL Calcium (8.4-10.2) mg/dL 01/22/25 01/22/25 01/22/25 Range/Units 06:30 06:30 11:37 RBC 3.61 L (4.40-5.60) 10*6/uL Hgb 10.4 L (13.0-17.0) g/dL Hct 30.9 L (39.6-50.0) % Immature Gran # 0.08 H (0.00-0.04) 10*3/uL Lymphocytes # 0.82 L (0.90-5.00) 10*3/uL Sodium 136 L (137-145) mmol/L Chloride 111 H (98-107) mmol/L Carbon Dioxide 17 L (22-30) mmol/L Creatinine 0.63 L (0.66-1.25) mg/dL Glucose 118 H (74-99) mg/dL POC Glucose (mg/dL) 138 H (70-110) mg/dL Calcium 8.0 L (8.4-10.2) mg/dL Microbiology - Last 24 Hours (Table) 01/19/25 20:29 Blood Culture Gram Stain - Final Blood Blood Culture - Final Pseudomonas aeruginosa 01/19/25 08:43 Blood Culture Gram Stain - Final Blood Blood Culture - Final Pseudomonas aeruginosa Molecular ID Assessment and Plan (1) Back pain Current Visit: Yes Status: Acute Code(s): M54.9 - DORSALGIA, UNSPECIFIED SNOMED Code(s): 397220994 (2) SIRS (systemic inflammatory response syndrome) Current Visit: No Status: Acute Code(s): R65.10 - SIRS OF NON-INFECTIOUS ORIGIN W/O ACUTE ORGAN DYSFUNCTION SNOMED Code(s): 760875769 (3) Bacteremia due to Pseudomonas Current Visit: No Status: Acute Code(s): R78.81 - BACTEREMIA; B96.5 - PSEUDOMONAS (MALLEI) CAUSING DISEASES [facility] SNOM[facility] Code(s): 2998504763 Plan: 1patient presented to hospital with weakness lightheadedness and near syncopal episode has also been complaining of lower back pain with no history of any trauma no start running a fever did have mild elevated white count concerning for possible lumbosacral spinal disease responsible for this fever 2-patient blood culture positive for Pseudomonas patient MRI did not show any evidence of discitis or osteomyelitis currently waiting for an echocardiogram may need TTE if negative. 3patient did have resolution of his fever white count normalized we will continue with the cefepime, still waiting for the official report on the echocardiogram Dictation was produced using [employer] dictation software. please excuse any grammatical, word or spelling errors. Time with Patient: Less than 30
--- NOTE | 2025-01-23 16:43 | P.PN ---
Subjective Progress Note Date: 01/23/25 Principal diagnosis: Reason for follow-up is fever/Pseudomonas bacteremia Patient is a 84-year-old male with a past medical history significant for Atrial Fibrillation, Coronary Artery Disease (CAD), Diabetes Mellitus, Hyperlipidemia, Hypertension, Syncope, Thyroid Disorder presenting to the hospital for evaluation of weakness and back pain did have a fever prompting this consultation. On today's evaluation that is 01/23/2025, Patient is afebrile this morning laura ent denies having any chest pain shortness of breath or cough, the patient is currently on room air, patient denies any abdominal pain no diarrhea no nausea no vomiting. Blood culture repeat from 01/22/2025 also positive, did have white count of 5.46 creatinine 0.70 echocardiogram did not mention any vegetation Objective - Vital Signs Vital signs: Vital Signs Temp 98.2 F 01/23/25 08:00 Pulse 72 01/23/25 08:00 Resp 20 01/23/25 08:00 BP 105/60 01/23/25 08:00 Pulse Ox 94 L 01/23/25 08:00 FiO2 Intake & Output 01/22/25 01/23/25 01/23/25 18:59 06:59 18:59 Intake Total 358 Output Total 700 525 375 Balance -700 -525 -17 Weight 118 kg Intake: Oral 358 Output: Urine 700 525 375 Other: Voiding Method Indwelling Catheter Indwelling Catheter - Exam GENERAL DESCRIPTION: An elderly male lying in bed in no distress RESPIRATORY SYSTEM: Unlabored breathing , decreased breath sounds at bases HEART: S1 S2 regular rate and rhythm , ABDOMEN: Soft , no tenderness EXTREMITIES: No edema feet - Labs CBC & Chem 7: 01/23/25 06:10 01/23/25 06:10 Labs: Abnormal Lab Results - Last 24 Hours (Table) 01/22/25 01/22/25 01/23/25 Range/Units 16:46 20:06 06:10 RBC 3.30 L (4.40-5.60) 10*6/uL Hgb 9.4 L (13.0-17.0) g/dL Hct 28.1 L (39.6-50.0) % Sodium (137-145) mmol/L Chloride (98-107) mmol/L Carbon Dioxide (22-30) mmol/L Glucose (74-99) mg/dL POC Glucose (mg/dL) 150 H 156 H (70-110) mg/dL Calcium (8.4-10.2) mg/dL Magnesium (1.6-2.3) mg/dL 01/23/25 01/23/25 Range/Units 06:10 11:40 RBC (4.40-5.60) 10*6/uL Hgb (13.0-17.0) g/dL Hct (39.6-50.0) % Sodium 136 L (137-145) mmol/L Chloride 110 H (98-107) mmol/L Carbon Dioxide 18 L (22-30) mmol/L Glucose 106 H (74-99) mg/dL POC Glucose (mg/dL) 125 H (70-110) mg/dL Calcium 7.8 L (8.4-10.2) mg/dL Magnesium 1.4 L (1.6-2.3) mg/dL Microbiology - Last 24 Hours (Table) 01/19/25 20:29 Blood Culture Gram Stain - Final Blood Blood Culture - Final Pseudomonas aeruginosa 01/19/25 08:43 Blood Culture Gram Stain - Final Blood Blood Culture - Final Pseudomonas aeruginosa Molecular ID Assessment and Plan (1) Back pain Current Visit: Yes Status: Acute Code(s): M54.9 - DORSALGIA, UNSPECIFIED SNOMED Code(s): 654728035 (2) SIRS (systemic inflammatory response syndrome) Current Visit: No Status: Acute Code(s): R65.10 - SIRS OF NON-INFECTIOUS ORIGIN W/O ACUTE ORGAN DYSFUNCTION SNOMED Code(s): 687731827 (3) Bacteremia due to Pseudomonas Current Visit: No Status: Acute Code(s): R78.81 - BACTEREMIA; B96.5 - PSEUDOMONAS (MALLEI) CAUSING DISEASES [facility]SD [facility] SNOMED Code(s): 5940825095 Plan: 1patient presented to hospital with weakness lightheadedness and near syncopal episode has also been complaining of lower back pain with no history of any trauma no start running a fever did have mild elevated white count concerning for possible lumbosacral spinal disease responsible for this fever 2-patient blood culture positive for Pseudomonas with blood culture on 01/22/2025 also positive MRI of the lumbosacral spine was negative for any discitis or osteomyelitis echocardiogram did not mention any vegetation 3blood culture be repeated document clearance the patient needs a KATHY to make sure evidence of any endocarditis we will continue with the cefepime Dictation was produced using [employer] dictation software. please excuse any grammatical, word or spelling errors. Time with Patient: Less than 30
[2025-01-23 20:01] LABS: Glucose,Whole Blood 149 mg/dL (70-110)
[2025-01-24 06:19] LABS: Glucose,Whole Blood 138 mg/dL (70-110)
--- NOTE | 2025-01-24 07:02 | P.PN ---
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 Associated close nonspecific dizziness but no headache. No specific limb weakness or numbness or blurred vision or double vision He has some vision problems and he follow-up with Dr. partida He denies chest pain or dyspnea. No other specific GI/ symptoms He has mild headache about 2-3/10 on the right side He states that recently he has been treated for UTI however he denies any urinary symptoms and urinalysis is negative. Vital stable afebrile. Is mildly tachycardic with heart rate 102. CBC BMP LFT and liver enzymes were unremarkable. Troponin is negative less than 0.012. Urinalysis normal. Chest x-ray showing no acute cardiopulmonary process EKG showing sinus tachycardia congestion with no significant ST-T changes but there is multiple PV Cs. He was started on aspirin 325 mg admitted with cardiology team consult Patient currently complains from spasm in his lower back that comes severely for a few seconds before letting go 01/19 Patient awake alert not in distress today. He feels better he says he can get up today compared to yesterday but he still complaining from back pain His back pain looks better than yesterday like 10/19 however once he try to move his leg even with little bend of the knee he developed severe pain in the lower back. No chest pain dyspnea or abdominal pain or tenderness.. He spiked a fever 104 overnight. Labs from yesterday showing WBC 10.2 hemoglobin 12.7. INR 1.1. Potassium is 4.4 creatinine 1.07. Patient still getting normal saline 75 mL/h. He is on Dilaudid for pain control also he is on aspirin Eliquis and Pepcid 01/20 Patient clinically the same, awake alert complaining from severe low back pain. Dilaudid 0.5 mg was not enough we will increase the dose to 1 mg. No chest pain no headache or dizziness no other new complaints. He is currently on antibiotic IV vancomycin and cefepime. Also infectious disease team following closely. Blood culture is coming back positive pending sensitivity and further evaluation. Because of spine infection is suspected. Patient may require procedure we going to hold Eliquis starting tonight. He got dose this morning. We are going to start bridging heparin tonight. Patient received boluses of normal saline, hypotension improved, creatinine function is stable. MRI of the spine with and without contrast ordered by infectious disease team. Is going to be done tonight however because of his fever it was held this afternoon. We are treating his fever aggressively with Tylenol, ibuprofen ordered and cooling blanket. Blood pressure is also monitored closely and discussed with the staff to give boluses if required. 01/21 Patient was hypotensive overnight and he was transferred to the ICU. They gave him only a small bolus of normal saline 500 cc which apparently was not enough. With getting more fluid his blood pressure improved. He did not really need any pressors. Eventually patient was transferred back to the general medical floor today. His back pain controlled with Dilaudid MRI showed no epidural abscess but there is severe spinal stenosis at L3-L4. Neurology service recommended orthopedic follow-up as an outpatient not candidate for any surgical intervention because septic. Patient currently covered with cefepime, 2 blood culture samples came back positive for Pseudomonas. Cardiology team on the case echocardiogram requested. Also cardio recommend Holter monitor as an outpatient. 01/22/2025 Patient is seen in follow-up currently sitting up in the chair being followed by multiple consultations maintained on antibiotics with infectious disease following as patient's cultures were positive for Pseudomonas. Patient continues with significant weakness although per case management, family reports will be going home. Patient has extremely weak and would benefit from ECF. Patient also having some left pinky pain and discoloration with concerns of possible ischemia to this left pinky and vascular surgery has been consulted recommending a Doppler of the left extremity. Patient is afebrile and reports to not feeling well and generally weak. Recommend PT/OT therapy evaluation and reevaluation with discussion of possible ECF on discharge. Patient with significant comorbidities and continued ongoing difficulties, patient would benefit from ECF for continued strength and mobility. 01/23/2025 Patient is seen in follow-up today being followed by multiple consultations maintained on cefepime at this time with infectious disease following as patient had positive blood cultures that appear persistent and continued to show Pseudomonas aeruginosa. Preliminary repeat cultures remain positive as well and cardiology will be reconsulted for request of KATHY per ID recommendations which is pending at this time. Patient did have left fifth finger significant discoloration and pain and was evaluated by vascular surgery showing clinical improvement and discoloration is improved. Patient reports this had been h urting prior to admission from previous falls but he did not recall hurting anything with the fall. Vascular surgery not recommending any intervention at this time and patient is continued on Eliquis. Patient is currently afebrile with no reports of chest pain or shortness of breath. Patient continues to be weak and with prolonged hospitalization would recommend continued PT/OT therapy. Patient and family are adamant they are returning home on discharge. Will discuss with case management regarding discharge planning once patient is stabilized. Currently awaiting cardiology reevaluation for possible KATHY Review of systems: Constitutional: No reports of fatigue, no fever, or chills Cardiovascular: No reports of chest pain or palpitations Respiratory: No reports of shortness of breath or cough GI: No reports of nausea, vomiting, or diarrhea, reports not eating much : No reports of dysuria or retention Neurovascular: reports of generalized weakness with difficulty in ambulating, l eft pinky finger pain and discoloration appears to be improving All medications have been reviewed Physical exam: GENERAL: The patient is alert and oriented x3, not in any acute distress. Well developed, elderly appearing, chronically ill appearing. Obese HEENT: Pupils are round and equally reacting to light. EOMI. No scleral icterus. No conjunctival pallor. Normocephalic, atraumatic. No pharyngeal erythema. No thyromegaly. CARDIOVASCULAR: S1 and S2 muffled PULMONARY: Diminished breath sounds bilaterally otherwise chest is clear to auscultation, no wheezing , no crackles. ABDOMEN: Soft, obese, nontender, nondistended, normoactive bowel sounds. No palpable organomegaly. MUSCULOSKELETAL: No joint swelling or deformity. EXTREMITIES: No cyanosis, clubbing, or pedal edema. Left finger fifth digit mildly discolored showing improvements in cyanosis, mildly cool to touch at the tip, cap refill at 3 seconds NEUROLOGICAL: Gross neurological examination did not reveal any focal deficits. Diffusely weak SKIN: No rashes. no petechiae. Assessment: Severe sepsis with septic shock with Pseudomonas bacteremia on admission, bacteremia is persistent with Pseudomonas and repeat blood cultures remain positive Pseudomonas bacteremia, unknown source with infectious disease following, card iology reconsulted for possible KATHY Recurrent syncope and falling, last few seconds with no seizure activity Fever of unknown origin, on admission Left fifth digit finger discoloration, cyanotic, cold to the touch with concerns of septic embolism versus possible injury from the fall, improving and no plans of surgical intervention at this time Acute severe lower back pain, secondary to severe lumbar spinal stenosis seen on the MRI, no evidence of osteomyelitis or discitis Generalized weakness and gait dysfunction Hypomagnesemia, improved after replacement Dehydration secondary to poor oral intake A-fib with mild RVR, maintained on Eliquis, currently rate controlled Hypertension Hyperlipidemia Coronary disease status post stent Obesity with a BMI of 36.3 AAA GI prophylaxis DVT prophylaxis Full code Plan: Continue with antibiotic cefepime. Follow-up blood culture results remain positive for Pseudomonas and repeat blood cultures pending, infectious disease following and will continue current regimen. Cardiology reconsulted and requ ested KATHY per infectious disease Continue gentle hydration with improvement in blood pressure Patient is maintained on Eliquis and aspirin. left fifth digit discoloration with cyanosis with concerns of septic embolism although improving and has positive pulses, likely injury with bruising secondar y to frequent falls prior to hospitalization, vascular surgery has evaluated with no surgical interventions planned recommending outpatient follow-up Follow-up on repeat labs and replace electrolytes per protocol Recommend PT/OT therapy reevaluation as patient and family were persistent on patient going home although patient is significantly weak with prolonged hospitalization and continued falls, would benefit from ECF Patient is high risk for readmissions given significant comorbidities Will await cardiology evaluation and possible KATHY as patient has persistent bacteremia with Pseudomonas and will need to monitor for clearance of bacteremia and clearance of consultations. The impression and plan of care has been dictated by Vicky Alvarado, Nurse Practitioner as directed. This is the verbal consent since Dr. Jake MD I have performed a history and examination and MDM of this patient, discussed the same with the dictator, and agree with the dictator's assessment and plan as written ,documented as a scribe. Based on total visit time, I have performed more than 50% of the visit. Objective - Vital Signs Vital signs: Vital Signs Temp 97.0 F L 01/24/25 03:13 Pulse 69 01/24/25 03:13 Resp 22 01/24/25 03:13 BP 106/82 01/24/25 03:13 Pulse Ox 98 01/24/25 03:13 FiO2 Intake & Output 01/23/25 01/23/25 01/24/25 06:59 18:59 06:59 Intake Total 716 Output Total 525 675 500 Balance -525 41 -500 Weight 118 kg 115.5 kg Intake: Oral 716 Output: Urine 525 675 500 Other: Voiding Method Indwelling Catheter Indwelling Catheter Indwelling Catheter - Labs CBC & Chem 7: 01/23/25 06:10 01/23/25 06:10 Labs: Abnormal Lab Results - Last 24 Hours (Table) 01/23/25 01/23/25 01/23/25 Range/Units 06:10 06:10 11:40 RBC 3.30 L (4.40-5.60) 10*6/uL Hgb 9.4 L (13.0-17.0) g/dL Hct 28.1 L (39.6-50.0) % Sodium 136 L (137-145) mmol/L Chloride 110 H (98-107) mmol/L Carbon Dioxide 18 L (22-30) mmol/L Glucose 106 H (74-99) mg/dL POC Glucose (mg/dL) 125 H (70-110) mg/dL Calcium 7.8 L (8.4-10.2) mg/dL Magnesium 1.4 L (1.6-2.3) mg/dL 01/23/25 01/23/25 01/24/25 Range/Units 16:35 19:59 06:14 RBC (4.40-5.60) 10*6/uL Hgb (13.0-17.0) g/dL Hct (39.6-50.0) % Sodium (137-145) mmol/L Chloride (98-107) mmol/L Carbon Dioxide (22-30) mmol/L Glucose (74-99) mg/dL POC Glucose (mg/dL) 162 H 149 H 138 H (70-110) mg/dL Calcium (8.4-10.2) mg/dL Magnesium (1.6-2.3) mg/dL Microbiology - Last 24 Hours (Table) 01/22/25 06:30 Blood Culture Gram Stain - Preliminary Blood Blood Culture - Preliminary Molecular ID
[2025-01-24 07:27] LABS: HCT 31.2 % (39.6-50.0); HGB 10.3 g/dL (13.0-17.0); MCH 28.4 pg (27.0-32.0); MCHC 33.0 g/dL (32.0-37.0); MCV 86.0 fL (80.0-97.0); Platelet Count 166 10*3/uL (140-440); RBC 3.63 10*6/uL (4.40-5.60); RDW 14.3 % (11.5-14.5); WBC 6.43 10*3/uL (4.50-10.00)
[2025-01-24 08:05] LABS: Potassium 3.7 mmol/L (3.5-5.1)
[2025-01-24 08:06] LABS: African American GFR (CKD) >90 (>60 ml/min/1.73 sqM); Anion Gap 8 mmol/L; Blood Urea Nitrogen 13 mg/dL (9-20); Calcium 7.9 mg/dL (8.4-10.2); Carbon Dioxide 19 mmol/L (22-30); Chloride 108 mmol/L (98-107); Glucose 124 mg/dL (74-99); Magnesium 1.5 mg/dL (1.6-2.3); Non-African American GFR(CKD) 89 (>60 ml/min/1.73 sqM); Sodium 135 mmol/L (137-145)
[2025-01-24] MEDS ORDERED: BENZOCAINE SPRAY 1 EACH MM PRN (11:02)
[2025-01-24] MEDS ORDERED: fentaNYL (PF) 50 MCG/ML 2 ML AMP IVP PRN (11:02)
[2025-01-24] MEDS ORDERED: MIDAZOLAM 2 MG/2 ML VIAL IV PRN (11:02)
--- NOTE | 2025-01-24 11:08 | P.PN ---
Subjective Progress Note Date: 01/24/25 This is an 84-year-old gentleman who follows with Dr. Morales with a past medical history of CAD status post PCI at [facility] in 2003, carotid disease status post carotid stent in [facility] in 2021, hypertension, hyperlipidemia, persistent atrial fibrillation and type 2 diabetes. Presented to the hospital because of recurrent syncope passing out over the last 3 to 4 days. Also complained of dizziness, lightheadedness and generalized weakness. Recently treated for UTI. There was a concern for sepsis during this admission. Patient remains in atrial fibrillation with controlled ventricular response. Echocardiogram with Doppler study showed normal LV systolic function. 01/24/2025 Dr. Lopez is requesting KATHY because patient has positive blood cultures for Pseudomonas aeruginosa. Patient will be scheduled tomorrow with Dr. Reed. PHYSICAL EXAMINATION: Neck: Brisk carotid upstroke, no jugular venous distention. Lungs: Minimal crackles with poor inspiratory effort Heart: Irregular pulse, mild systolic murmur audible Abdomen: Soft nontender, positive bowel sounds. Extremities: No edema, intact distal pulses. Neuro: Alert, oritented, no focal deficits. Detailed neuro exam was not performed. ASSESSMENT: # Generalized weakness and lightheadedness # Questionable fall, questionable syncope # Fever likely sepsis # Failure to thrive # Persistent atrial fibrillation # CAD status post PCI at [facility] in 2003 # Carotid disease status post carotid stent in [facility] 2021 # Essential hypertension # Dyslipidemia # Type 2 diabetes PLAN: From cardiology's perspective medications were reviewed and we will continue the same. Patient will be scheduled for KATHY tomorrow with Dr. Eric Reed N.p.o. after midnight At the time of discharge, patient will follow-up in the office with Dr. Reed. DATA WAREHOUSE CONSULTANT note has been reviewed, I agree with a documented findings and plan of care. Patient was seen and examined. Objective - Vital Signs Vital signs: Vital Signs Temp 97.2 F L 01/24/25 08:28 Pulse 69 01/24/25 08:28 Resp 22 01/24/25 08:28 BP 164/79 01/24/25 08:28 Pulse Ox 97 01/24/25 08:28 FiO2 Intake & Output 01/23/25 01/24/25 01/24/25 18:59 06:59 18:59 Intake Total 716 0 Output Total 675 800 550 Balance 41 -800 -550 Weight 115.5 kg Intake: Oral 716 0 Output: Urine 675 800 550 Other: Voiding Method Indwelling Catheter Indwelling Catheter Indwelling Catheter - Labs CBC & Chem 7: 01/24/25 06:49 01/24/25 06:49 Labs: Abnormal Lab Results - Last 24 Hours (Table) 01/23/25 01/23/25 01/23/25 Range/Units 11:40 16:35 19:59 RBC (4.40-5.60) 10*6/uL Hgb (13.0-17.0) g/dL Hct (39.6-50.0) % Sodium (137-145) mmol/L Chloride (98-107) mmol/L Carbon Dioxide (22-30) mmol/L Glucose (74-99) mg/dL POC Glucose (mg/dL) 125 H 162 H 149 H (70-110) mg/dL Calcium (8.4-10.2) mg/dL Magnesium (1.6-2.3) mg/dL 01/24/25 01/24/25 01/24/25 Range/Units 06:14 06:49 06:49 RBC 3.63 L (4.40-5.60) 10*6/uL Hgb 10.3 L (13.0-17.0) g/dL Hct 31.2 L (39.6-50.0) % Sodium 135 L (137-145) mmol/L Chloride 108 H (98-107) mmol/L Carbon Dioxide 19 L (22-30) mmol/L Glucose 124 H (74-99) mg/dL POC Glucose (mg/dL) 138 H (70-110) mg/dL Calcium 7.9 L (8.4-10.2) mg/dL Magnesium 1.5 L (1.6-2.3) mg/dL Microbiology - Last 24 Hours (Table) 01/22/25 06:30 Blood Culture Gram Stain - Preliminary Blood Blood Culture - Preliminary Pseudomonas aeruginosa Molecular ID
[2025-01-24 11:22] LABS: Glucose,Whole Blood 131 mg/dL (70-110)
[2025-01-24] MEDS: MAGNESIUM SULFATE-D5W PMX 1 GM in DEXTROSE/WATER 1 100ML.BAG IVPB SCH (11:42)
--- NOTE | 2025-01-24 11:52 | P.PN ---
Subjective Progress Note Date: 01/24/25 Principal diagnosis: Finger pain and discoloration Patient seen and examined today as a follow-up. Continues to have improvement in the pain and discoloration of his left pinky finger. States he is able to bend it today. Patient repeat blood cultures are positive for Pseudomonas. Objective - Vital Signs Vital signs: Vital Signs Temp 97.2 F L 01/24/25 08:28 Pulse 54 L 01/24/25 11:43 Resp 18 01/24/25 11:43 BP 132/62 01/24/25 11:43 Pulse Ox 98 01/24/25 11:43 FiO2 Intake & Output 01/23/25 01/24/25 01/24/25 18:59 06:59 18:59 Intake Total 716 0 Output Total 675 800 550 Balance 41 -800 -550 Weight 115.5 kg Intake: Oral 716 0 Output: Urine 675 800 550 Other: Voiding Method Indwelling Catheter Indwelling Catheter Indwelling Catheter - Exam General appearance: The patient is alert, oriented, appears in no acute distress. HET: Head is normocephalic and atraumatic. Pupils are equal and reactive. Neck: Supple. Extremities: Palpable bilateral +2 radial pulses. Hands are warm to the touch. Left hand fifth finger discoloration improving, nailbed and skin light purple, distal tip slightly cool. Good capillary refill. Patient able to bend his pinky finger. Neurological: Alert and oriented. - Labs CBC & Chem 7: 01/24/25 06:49 01/24/25 06:49 Labs: Abnormal Lab Results - Last 24 Hours (Table) 01/23/25 01/23/25 01/24/25 Range/Units 16:35 19:59 06:14 RBC (4.40-5.60) 10*6/uL Hgb (13.0-17.0) g/dL Hct (39.6-50.0) % Sodium (137-145) mmol/L Chloride (98-107) mmol/L Carbon Dioxide (22-30) mmol/L Glucose (74-99) mg/dL POC Glucose (mg/dL) 162 H 149 H 138 H (70-110) mg/dL Calcium (8.4-10.2) mg/dL Magnesium (1.6-2.3) mg/dL 01/24/25 01/24/25 01/24/25 Range/Units 06:49 06:49 11:20 RBC 3.63 L (4.40-5.60) 10*6/uL Hgb 10.3 L (13.0-17.0) g/dL Hct 31.2 L (39.6-50.0) % Sodium 135 L (137-145) mmol/L Chloride 108 H (98-107) mmol/L Carbon Dioxide 19 L (22-30) mmol/L Glucose 124 H (74-99) mg/dL POC Glucose (mg/dL) 131 H (70-110) mg/dL Calcium 7.9 L (8.4-10.2) mg/dL Magnesium 1.5 L (1.6-2.3) mg/dL Microbiology - Last 24 Hours (Table) 01/22/25 06:30 Blood Culture Gram Stain - Preliminary Blood Blood Culture - Preliminary Pseudomonas aeruginosa Molecular ID Assessment and Plan Assessment: 1. Left hand fifth digit pain with discoloration, possible etiologies include septic embolism, injury from fall 2. Syncope and fall 3. Sepsis secondary to Pseudomonas bacteremia 4. Atrial fibrillation on anticoagulation Plan: 1. Upper extremity arterial ultrasound ordered and reviewed 2. There is improvement in pain and discoloration. No planned intervention at this time. Thank you for this consultation, we will sign off at this time. Recommend outpatient follow-up with vascular surgery in 1 to 2 weeks. The impression and plan of care has been dictated as directed. Dr. Khris Conroy performed a history and examination of this patient, discussed the same with the dictator. I agree with the dictator's note ,documented as a scribe. Any additional findings or plans will be noted.
--- NOTE | 2025-01-24 14:23 | P.PN ---
Subjective Progress Note Date: 01/24/25 This is an 84-year-old male patient with a known history of diabetes mellitus, hyperlipidemia, hypertension, carotid artery disease status post stent in 2021, coronary disease status post intervention in 2003, persistent atrial fibrillation. He presented here to the emergency room on January 18, 2025 with complaints of dizziness lightheadedness possible syncopal episode and generalized weakness. He had a rapid response team called on him on January 18 and again on January 19, 2025 for hypotension and high fevers. He was subsequently transferred here to the intensive care unit where he is seen in consultation today. Chest x-ray shows cardiomegaly and diffuse interstitial opacity mild fluid volume overload. EKG reveals atrial fibrillation with a controlled ventricular response. White count 7.1. Hemoglobin 9.0. Platelets 130. Sodium 135. Potassium 3.6. Bicarb 19. BUN 29. Creatinine 0.87. Glucose 102. Stool for occult blood is positive. Blood cultures showing gram-negative bacilli. He is currently on a heparin drip. Antibiotics in the form of cefepime. He was briefly on norepinephrine for blood pressure support. Current mean arterial pressures in the mid to upper 60s. He is resting in bed. Maintaining O2 saturations in the 90s to 100 on 2 L/min per nasal cannula. He is currently afebrile. The plan is for an MRI of the spine today looking for source of infection. On today's evaluation of 01/22/2025, the patient is being seen for a follow-up. The patient is being treated for pseudomonal septicemia and the patient remains on IV cefepime. Clinically stable. Hemodynamically stable. No fever. No chills. Mental status is appropriate and adequate at this point in time. However, the patient has developed pain in his left fifth finger and there is coldness and poor capillary refill and obvious ischemic changes. Based on that, recommended vascular consultation. Noted the patient has adequate radial and ulnar nerve pulses involving the left upper extremity. Patient is known to have chronic atrial fibrillation and he is maintained on anticoagulation with Eliqu is. He is known to have coronary artery disease, hypertension hyperlipidemia and diabetes mellitus. His undergone previous coronary stenting and is also known to have an abdominal aortic aneurysm. He is currently on IV cefepime. Rest of the medications are essentially unchanged. No surgical respiratory distress and the patient remains on room air oxygen with a pulse ox of 95%. Currently afebrile. On today's evaluation of 01/23/2025, the patient remains on IV cefepime for pseudomonal septicemia. Hemodynamically stable. Some occasional confusion yet for the most part, no focal neurological deficit and the patient is awake alert and communicating. Pulse ox 97% room air oxygen. ID is on the case. The patient was also seen by vascular surgery regarding the left finger cyanosis and pain which is attributed to microvascular ischemia. The patient had a 2D echocardiogram that was technically difficult. The patient has essentially normal LV function. The patient remains on anticoagulation regarding atrial fibrillation the patient remains on anticoagulation with Eliquis. Blood work from today shows a white cell count of 5.4 with a heme of 9.4 and platelet count of 146. BUN 16 with a creatinine of 0.7 and the patient's sodium level is at 136. No other significant events overnight. On today's evaluation of 01/24/2025, patient is being seen for a follow-up. The patient is awake and alert and the patient remains on room air oxygen. No hypotension. No fever or chills. Left fifth finger remains painful and swollen. Adequate pulses in all 4 extremities. Meanwhile, the repeat blood culture that was obtained on 01/22/2025 is still showing positive Pseudomonas aeruginosa. The white cells are 6.4 with a hemoglobin 10.3 and a platelet count of 166. BUN is 15 with a creatinine of 0.69 and sodium levels at 135. The patient remains on IV cefepime. Rest of her medications are essentially unchanged and the patient is on normal saline at rate of 50 cc an hour. The pat ient has bilateral knee replacement. The joints are essentially nonswollen and nonpainful at this point. Clinically, there has been also improvement in the pain and discoloration of the left pinky finger. ID is on the case. Exact source of pseudomonal infection is not clear. Consider endocarditis. Consider a KATHY. ID is on the case. Objective - Vital Signs Vital signs: Vital Signs Temp 97.2 F L 01/24/25 08:28 Pulse 69 01/24/25 08:28 Resp 22 01/24/25 08:28 BP 164/79 01/24/25 08:28 Pulse Ox 97 01/24/25 08:28 FiO2 Intake & Output 01/23/25 01/24/25 01/24/25 18:59 06:59 18:59 Intake Total 716 0 Output Total 675 800 550 Balance 41 -800 -550 Weight 115.5 kg Intake: Oral 716 0 Output: Urine 675 800 550 Other: Voiding Method Indwelling Catheter Indwelling Catheter Indwelling Catheter - Exam GENERAL EXAM: Alert, weak obese 84-year-old male, on room air oxygen, fairly comfortable in no apparent distress. HEAD: Normocephalic. EYES: Normal reaction of pupils, equal size. NOSE: Clear with pink turbinates. THROAT: No erythema or exudates. NECK: No masses, no JVD. CHEST: No chest wall deformity. LUNGS: Equal air entry with no crackles, wheeze, rhonchi or dullness. CVS: S1 and S2 normal with no audible murmur, regular rhythm. ABDOMEN: No hepatosplenomegaly, normal bowel sounds, no guarding or rigidity. SPINE: No scoliosis or deformity SKIN: No rashes CENTRAL NERVOUS SYSTEM: No focal deficits, tone is normal in all 4 extremities. EXTREMITIES: There is no peripheral edema. No clubbing, no cyanosis. Periphe ral pulses are intact. - Labs CBC & Chem 7: 01/24/25 06:49 01/24/25 06:49 Labs: Abnormal Lab Results - Last 24 Hours (Table) 01/23/25 01/23/25 01/23/25 Range/Units 11:40 16:35 19:59 RBC (4.40-5.60) 10*6/uL Hgb (13.0-17.0) g/dL Hct (39.6-50.0) % Sodium (137-145) mmol/L Chloride (98-107) mmol/L Carbon Dioxide (22-30) mmol/L Glucose (74-99) mg/dL POC Glucose (mg/dL) 125 H 162 H 149 H (70-110) mg/dL Calcium (8.4-10.2) mg/dL Magnesium (1.6-2.3) mg/dL 01/24/25 01/24/25 01/24/25 Range/Units 06:14 06:49 06:49 RBC 3.63 L (4.40-5.60) 10*6/uL Hgb 10.3 L (13.0-17.0) g/dL Hct 31.2 L (39.6-50.0) % Sodium 135 L (137-145) mmol/L Chloride 108 H (98-107) mmol/L Carbon Dioxide 19 L (22-30) mmol/L Glucose 124 H (74-99) mg/dL POC Glucose (mg/dL) 138 H (70-110) mg/dL Calcium 7.9 L (8.4-10.2) mg/dL Magnesium 1.5 L (1.6-2.3) mg/dL Microbiology - Last 24 Hours (Table) 01/22/25 06:30 Blood Culture Gram Stain - Preliminary Blood Blood Culture - Preliminary Pseudomonas aeruginosa Molecular ID Assessment and Plan Plan: Sepsis with septic shock secondary to Pseudomonas aeruginosa septicemia, c urrently on IV cefepime. Clinically and hemodynamically stable. ID is on the case. Exact source of the pseudomonal septicemia is not clear at this point. The most recent blood culture that was obtained on 01/22/2025 is still showing positive Pseudomonas aeruginosa and initial blood culture was positive on 01/19/2025 and the patient remains on IV cefepime. Consider infective endocarditis. Th knee joints are within normal limits and the patient is post bilateral knee arthroplasty. Hypotension with dizziness and near syncope secondary to above, recovered Febrile illness secondary to above, recovered and the patient is currently afebrile Left hand fifth digit ischemia, likely arterial, rule out septic embolism versus microvascular embolism and the patient is to be seen by vascular surgery. Clinically improving and vascular surgery remains on the case. Anemia with stool for occult blood positive Acute low back pain, MRI of the lumbar spine was completed and the patient has no evidence of discitis. 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 Atrial fibrillation anticoagulated with Eliquis, Hypertension, history of Hyperlipidemia Coronary artery disease status post stent placement Carotid artery disease status post repair Plan: Persistent bacteremia with Pseudomonas aeruginosa The patient has pseudomonal septicemia. Exact source of the sepsis is not clear. MRI of the lumbar spine showed no evidence of any discitis or paraspinal abscess. Rule out underlying urinary tract infection with secondary pseudomonal septicemia. Rule out skin source of infection. No evidence of any pneumonia. Cannot rule out possibility of endocarditis. Consider a KATHY. Limited echocardiogram done on 01/22/2025 showed a preserved LV function with an ejection fraction of 6065%, valves were not adequately addressed. Currently cefepime Infectious diseases on the case Briefly required norepinephrine, currently hemodynamically stable and off pressors, remains hemodynamically stable. Currently stable and on normal saline at 50 cc an hour [facility] consultation regarding the ischemic left fifth digit. Titrate the FiO2 as needed, currently on room air oxygen We will continue to follow and make further recommendations based on his clinical status
--- NOTE | 2025-01-24 14:25 | P.PN ---
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 Associated close nonspecific dizziness but no headache. No specific limb weakness or numbness or blurred vision or double vision He has some vision problems and he follow-up with Dr. partida He denies chest pain or dyspnea. No other specific GI/ symptoms He has mild headache about 2-3/10 on the right side He states that recently he has been treated for UTI however he denies any urinary symptoms and urinalysis is negative. Vital stable afebrile. Is mildly tachycardic with heart rate 102. CBC BMP LFT and liver enzymes were unremarkable. Troponin is negative less than 0.012. Urinalysis normal. Chest x-ray showing no acute cardiopulmonary process EKG showing sinus tachycardia congestion with no significant ST-T changes but there is multiple PVCs. He was started on aspirin 325 mg admitted with cardiology team consult Patient currently complains from spasm in his lower back that comes severely for a few seconds before letting go 01/19 Patient awake alert not in distress today. He feels better he says he can get up today compared to yesterday but he still complaining from back pain His back pain looks better than yesterday like 10/19 however once he try to move his leg even with little bend of the knee he developed severe pain in the lower back. No chest pain dyspnea or abdominal pain or tenderness.. He spiked a fever 104 overnight. Labs from yesterday showing WBC 10.2 hemoglobin 12.7. INR 1.1. Potassium is 4.4 creatinine 1.07. Patient still getting normal saline 75 mL/h. He is on Dilaudid for pain control also he is on aspirin Eliquis and Pepcid 01/20 Patient clinically the same, awake alert complaining from severe low back pain. Dilaudid 0.5 mg was not enough we will increase the dose to 1 mg. No chest pain no headache or dizziness no other new complaints. He is currently on antibiotic IV vancomycin and cefepime. Also infectious disease team following closely. Blood culture is coming back positive pending sensitivity and further evaluation. Because of spine infection is suspected. Patient may require procedure we going to hold Eliquis starting tonight. He got dose this morning. We are going to start bridging heparin tonight. Patient received boluses of normal saline, hypotension improved, creatinine function is stable. MRI of the spine with and without contrast ordered by infectious disease team. Is going to be done tonight however because of his fever it was held this afternoon. We are treating his fever aggressively with Tylenol, ibuprofen ordered and cooling blanket. Blood pressure is also monitored closely and discussed with the staff to give boluses if required. 01/21 Patient was hypotensive overnight and he was transferred to the ICU. They gave him only a small bolus of normal saline 500 cc which apparently was not enough. With getting more fluid his blood pressure improved. He did not really need any pressors. Eventually patient was transferred back to the general medical floor today. His back pain controlled with Dilaudid MRI showed no epidural abscess but there is severe spinal stenosis at L3-L4. Neurology service recommended orthopedic follow-up as an outpatient not candidate for any surgical intervention because septic. Patient currently covered with cefepime, 2 blood culture samples came back positive for Pseudomonas. Cardiology team on the case echocardiogram requested. Also cardio recommend Holter monitor as an outpatient. 01/22/2025 Patient is seen in follow-up currently sitting up in the chair being followed by multiple consultations maintained on antibiotics with infectious disease following as patient's cultures were positive for Pseudomonas. Patient co ntinues with significant weakness although per case management, family reports will be going home. Patient has extremely weak and would benefit from ECF. Patient also having some left pinky pain and discoloration with concerns of possible ischemia to this left pinky and vascular surgery has been consulted recommending a Doppler of the left extremity. Patient is afebrile and reports to not feeling well and generally weak. Recommend PT/OT therapy evaluation and reevaluation with discussion of possible ECF on discharge. Patient with significant comorbidities and continued ongoing difficulties, patient would benefit from ECF for continued strength and mobility. 01/23/2025 Patient is seen in follow-up today being followed by multiple consultations maintained on cefepime at this time with infectious disease following as patient had positive blood cultures that appear persistent and continued to show Pseudomonas aeruginosa. Preliminary repeat cultures remain positive as well and cardiology will be reconsulted for request of KATHY per ID recommendations which is pending at this time. Patient did have left fifth finger significant discoloration and pain and was evaluated by vascular surgery showing clinical improvement and discoloration is improved. Patient reports this had been devi ting prior to admission from previous falls but he did not recall hurting anything with the fall. Vascular surgery not recommending any intervention at this time and patient is continued on Eliquis. Patient is currently afebrile with no reports of chest pain or shortness of breath. Patient continues to be weak and with prolonged hospitalization would recommend continued PT/OT therapy. Patient and family are adamant they are returning home on discharge. Will discuss with case management regarding discharge planning once patient is stabilized. Currently awaiting cardiology reevaluation for possible KATHY 01/24/2025 Patient is evaluated in follow-up on the medical floor. He is currently low and oriented x 2 and appears mildly confused today. He is currently pending cardiac evaluation for possible KATHY as he continues to have persistent Pseudomonas bacteremia with concern for infective endocarditis. Otherwise he has no acute complaints at this time. He reports continued left finger discoloration and pain. White blood cell count remains within normal limits. His sodium level today is 135, BUN of 13 creatinine of 0.69 magnesium level of 1.5. Review of systems: Constitutional: No reports of fatigue, no fever, or chills Cardiovascular: No reports of chest pain or palpitations Respiratory: No reports of shortness of breath or cough GI: No reports of nausea, vomiting, or diarrhea, reports not eating much : No reports of dysuria or retention Neurovascular: reports of generalized weakness with difficulty in ambulating, left pinky finger pain and discoloration appears to be improving All medications have been reviewed Physical exam: GENERAL: The patient is alert and oriented x3, not in any acute distress. Well developed, elderly appearing, chronically ill appearing. Obese HEENT: Pupils are round and equally reacting to light. EOMI. No scleral icterus. No conjunctival pallor. Normocephalic, atraumatic. No pharyngeal erythema. No thyromegaly. CARDIOVASCULAR: S1 and S2 muffled PULMONARY: Diminished breath sounds bilaterally otherwise chest is clear to auscultation, no wheezing , no crackles. ABDOMEN: Soft, obese, nontender, nondistended, normoactive bowel sounds. No palpable organomegaly. MUSCULOSKELETAL: No joint swelling or deformity. EXTREMITIES: No cyanosis, clubbing, or pedal edema. Left finger fifth digit mildly discolored showing improvements in cyanosis, mildly cool to touch at the tip, cap refill at 3 seconds NEUROLOGICAL: Gross neurological examination did not reveal any focal deficits. Diffusely weak SKIN: No rashes. no petechiae. Assessment: Severe sepsis with septic shock with Pseudomonas bacteremia on admission, bacteremia is persistent with Pseudomonas and repeat blood cultures remain positive Pseudomonas bacteremia, unknown source with infectious disease following, cardiology reconsulted for possible KATHY Recurrent syncope and falling, last few seconds with no seizure activity Fever of unknown origin, on admission Left fifth digit finger discoloration, cyanotic, cold to the touch with concerns of septic embolism versus possible injury from the fall, improving and no plans of surgical intervention at this time Acute severe lower back pain, secondary to severe lumbar spinal stenosis seen on the MRI, no evidence of osteomyelitis or discitis Generalized weakness and gait dysfunction Hypomagnesemia, improved after replacement Dehydration secondary to poor oral intake A-fib with mild RVR, maintained on Eliquis, currently rate controlled Hypertension Hyperlipidemia Coronary disease status post stent Obesity with a BMI of 36.3 AAA GI prophylaxis DVT prophylaxis Full code Plan: Continue with antibiotic cefepime. Follow-up blood culture results remain positive for Pseudomonas and repeat blood cultures pending, infectious disease following and will continue current regimen. Cardiology reconsulted and requested KATHY per infectious disease and patient will be going for KATHY on 01/24/2025 Continue gentle hydration with improvement in blood pressure Patient is maintained on Eliquis and aspirin. left fifth digit discoloration with cyanosis with concerns of septic embolism although improving and has positive pulses, likely injury with bruising secondary to frequent falls prior to hospitalization, vascular surgery has evaluated with no surgical interventions planned recommending outpatient follow- up Follow-up on repeat labs and replace electrolytes per protocol Recommend PT/OT therapy reevaluation as patient and family were persistent on patient going home although patient is significantly weak with prolonged hospitalization and continued falls, would benefit from ECF Patient is high risk for readmissions given significant comorbidities Will await cardiology evaluation and possible KATHY as patient has persistent bacteremia with Pseudomonas and will need to monitor for clearance of bacteremia and clearance of consultations. The impression and plan of care has been dictated by Miranda Mayes Nurse Practitioner as directed. This is the verbal consent since Dr. Jake MD I have performed a history and examination and MDM of this patient, discussed the same with the dictator, and agree with the dictator's assessment and plan as written ,documented as a scribe. Based on total visit time, I have performed more than 50% of the visit. Objective - Vital Signs Vital signs: Vital Signs Temp 97.2 F L 01/24/25 08:28 Pulse 69 01/24/25 08:28 Resp 16 01/24/25 08:28 BP 164/79 01/24/25 08:28 Pulse Ox 97 01/24/25 08:28 FiO2 Intake & Output 01/23/25 01/24/25 01/24/25 18:59 06:59 18:59 Intake Total 716 Output Total 675 800 Balance 41 -800 Weight 115.5 kg Intake: Oral 716 Output: Urine 675 800 Other: Voiding Method Indwelling Catheter Indwelling Catheter - Labs CBC & Chem 7: 01/24/25 06:49 01/24/25 06:49 Labs: Abnormal Lab Results - Last 24 Hours (Table) 01/23/25 01/23/25 01/23/25 Range/Units 11:40 16:35 19:59 RBC (4.40-5.60) 10*6/uL Hgb (13.0-17.0) g/dL Hct (39.6-50.0) % Sodium (137-145) mmol/L Chloride (98-107) mmol/L Carbon Dioxide (22-30) mmol/L Glucose (74-99) mg/dL POC Glucose (mg/dL) 125 H 162 H 149 H (70-110) mg/dL Calcium (8.4-10.2) mg/dL Magnesium (1.6-2.3) mg/dL 01/24/25 01/24/25 01/24/25 Range/Units 06:14 06:49 06:49 RBC 3.63 L (4.40-5.60) 10*6/uL Hgb 10.3 L (13.0-17.0) g/dL Hct 31.2 L (39.6-50.0) % Sodium 135 L (137-145) mmol/L Chloride 108 H (98-107) mmol/L Carbon Dioxide 19 L (22-30) mmol/L Glucose 124 H (74-99) mg/dL POC Glucose (mg/dL) 138 H (70-110) mg/dL Calcium 7.9 L (8.4-10.2) mg/dL Magnesium 1.5 L (1.6-2.3) mg/dL Microbiology - Last 24 Hours (Table) 01/22/25 06:30 Blood Culture Gram Stain - Preliminary Blood Blood Culture - Preliminary Molecular ID
[2025-01-24 16:11] LABS: Glucose,Whole Blood 139 mg/dL (70-110)
[2025-01-24 21:09] LABS: Glucose,Whole Blood 142 mg/dL (70-110)
[2025-01-25 06:36] LABS: Glucose,Whole Blood 130 mg/dL (70-110)
[2025-01-25 07:11] LABS: Basophils # (A) 0.03 10*3/uL (0.00-0.10); Basophils % (A) 0.5 %; Eosinophils # (A) 0.15 10*3/uL (0.04-0.35); Eosinophils % (A) 2.5 %; HCT 28.6 % (39.6-50.0); HGB 9.5 g/dL (13.0-17.0); Lymphocytes # (A) 0.82 10*3/uL (0.90-5.00); Lymphocytes % (A) 13.9 %; MCH 28.1 pg (27.0-32.0); MCHC 33.2 g/dL (32.0-37.0); MCV 84.6 fL (80.0-97.0); Monocytes # (A) 0.50 10*3/uL (0.20-1.00); Monocytes % (A) 8.4 %; Neutrophils # (A) 4.37 10*3/uL (1.80-7.70); Neutrophils % (A) 73.9 %; Platelet Count 173 10*3/uL (140-440); RBC 3.38 10*6/uL (4.40-5.60); RDW 14.2 % (11.5-14.5); WBC 5.92 10*3/uL (4.50-10.00)
[2025-01-25 07:28] LABS: African American GFR (CKD) >90 (>60 ml/min/1.73 sqM); Anion Gap 8 mmol/L; Blood Urea Nitrogen 10 mg/dL (9-20); Calcium 7.7 mg/dL (8.4-10.2); Carbon Dioxide 19 mmol/L (22-30); Chloride 107 mmol/L (98-107); Glucose 122 mg/dL (74-99); Magnesium 1.6 mg/dL (1.6-2.3); Non-African American GFR(CKD) >90 (>60 ml/min/1.73 sqM); Potassium 3.9 mmol/L (3.5-5.1); Sodium 134 mmol/L (137-145)
[2025-01-25] MEDS: IV FLUID CONTINUATION 1,000 ML IV ONE (07:35)
[2025-01-25] MEDS: SODIUM CHLORIDE 0.9% 500 ML 500 ML IV ONE (07:35)
[2025-01-25] MEDS: BENZOCAINE SPRAY 1 EACH MUCOUS MEM ONE ×2 (07:45→07:53)
[2025-01-25] MEDS: fentaNYL (PF) 50 MCG/ML 2 ML AMP IVP ONE (07:53)
[2025-01-25] MEDS: MIDAZOLAM 2 MG/2 ML VIAL IVP ONE (07:53)
--- NOTE | 2025-01-25 09:01 | P.PN ---
Subjective Progress Note Date: 01/24/25 Principal diagnosis: Reason for follow-up is fever/Pseudomonas bacteremia Patient is a 84-year-old male with a past medical history significant for Atrial Fibrillation, Coronary Artery Disease (CAD), Diabetes Mellitus, Hyperlipidemia, Hypertension, Syncope, Thyroid Disorder presenting to the hospital for evaluation of weakness and back pain did have a fever prompting this consultation. On today's evaluation that is 01/24/2025,the patient denies any fever or any ch ills, patient is breathing comfortably on room air, the patient denies chest pain shortness of breath and no significant cough, patient denies abdominal pain, no nausea vomiting or diarrhea. No new labs were obtained today Objective - Vital Signs Vital signs: Vital Signs Temp 97.2 F L 01/24/25 08:28 Pulse 54 L 01/24/25 11:43 Resp 18 01/24/25 11:43 BP 132/62 01/24/25 11:43 Pulse Ox 98 01/24/25 11:43 FiO2 Intake & Output 01/23/25 01/24/25 01/24/25 18:59 06:59 18:59 Intake Total 716 0 Output Total 675 800 550 Balance 41 -800 -550 Weight 115.5 kg Intake: Oral 716 0 Output: Urine 675 800 550 Other: Voiding Method Indwelling Catheter Indwelling Catheter Indwelling Catheter - Exam GENERAL DESCRIPTION: An elderly male lying in bed in no distress RESPIRATORY SYSTEM: Unlabored breathing , decreased breath sounds at bases HEART: S1 S2 regular rate and rhythm , ABDOMEN: Soft , no tenderness EXTREMITIES: No edema feet - Labs CBC & Chem 7: 01/25/25 06:44 01/25/25 06:44 Labs: Abnormal Lab Results - Last 24 Hours (Table) 01/23/25 01/23/25 01/24/25 Range/Units 16:35 19:59 06:14 RBC (4.40-5.60) 10*6/uL Hgb (13.0-17.0) g/dL Hct (39.6-50.0) % Sodium (137-145) mmol/L Chloride (98-107) mmol/L Carbon Dioxide (22-30) mmol/L Glucose (74-99) mg/dL POC Glucose (mg/dL) 162 H 149 H 138 H (70-110) mg/dL Calcium (8.4-10.2) mg/dL Magnesium (1.6-2.3) mg/dL 01/24/25 01/24/25 01/24/25 Range/Units 06:49 06:49 11:20 RBC 3.63 L (4.40-5.60) 10*6/uL Hgb 10.3 L (13.0-17.0) g/dL Hct 31.2 L (39.6-50.0) % Sodium 135 L (137-145) mmol/L Chloride 108 H (98-107) mmol/L Carbon Dioxide 19 L (22-30) mmol/L Glucose 124 H (74-99) mg/dL POC Glucose (mg/dL) 131 H (70-110) mg/dL Calcium 7.9 L (8.4-10.2) mg/dL Magnesium 1.5 L (1.6-2.3) mg/dL Microbiology - Last 24 Hours (Table) 01/22/25 06:30 Blood Culture Gram Stain - Preliminary Blood Blood Culture - Preliminary Pseudomonas aeruginosa Molecular ID Assessment and Plan (1) Back pain Current Visit: Yes Status: Acute Code(s): M54.9 - DORSALGIA, UNSPECIFIED SNOMED Code(s): 823799983 (2) SIRS (systemic inflammatory response syndrome) Current Visit: No Status: Acute Code(s): R65.10 - SIRS OF NON-INFECTIOUS ORIGIN W/O ACUTE ORGAN DYSFUNCTION SNOMED Code(s): 913012106 (3) Bacteremia due to Pseudomonas Current Visit: No Status: Acute Code(s): R78.81 - BACTEREMIA; B96.5 - PSEUDOMONAS (MALLEI) [facility] Code(s): 9069188397 Plan: 1patient presented to hospital with weakness lightheadedness and near syncopal episode has also been complaining of lower back pain with no history of any trauma no start running a fever did have mild elevated white count concerning for possible lumbosacral spinal disease responsible for this fever 2-patient blood culture positive for Pseudomonas with blood culture on 01/22/2025 also positive MRI of the lumbosacral spine was negative for any discitis or osteomyelitis echocardiogram did not mention any vegetation 3blood culture has been repeated document clearance the patient needs a KATHY to make sure evidence of any endocarditis for which cardiology planning to do the procedure tomorrow for now continue with the cefepime and will monitor clinical course closely Dictation was produced using [employer] dictation software. please excuse any grammatical, word or spelling errors. Time with Patient: Less than 30
--- NOTE | 2025-01-25 10:30 | P.PN ---
Subjective Progress Note Date: 01/25/25 This is an 84-year-old gentleman who follows with Dr. Morales with a past medical history of CAD status post PCI at [place] in 2003, carotid disease status post carotid stent in [place] in 2021, hypertension, hyperlipidemia, persistent atrial fibrillation and type 2 diabetes. Presented to the hospital because of recurrent syncope passing out over the last 3 to 4 days. Also complained of dizziness, lightheadedness and generalized weakness. Recently treated for UTI. There was a concern for sepsis during this admission. Patient remains in atrial fibrillation with controlled ventricular response. Echocardiogram with Doppler study showed normal LV systolic function. 01/24/2025 Dr. Duong is requesting KATHY because patient has positive blood cultures for Pseudomonas aeruginosa. Patient will be scheduled tomorrow with Dr. Reed. 01/25/2025 Patient seen and examined. He underwent KATHY which was concerning for vegetation. Formal report is pending at this time. Patient has been afebrile, blood pressure 152/63, heart rate 60, pulse ox 95% on room air. PHYSICAL EXAMINATION: Neck: Brisk carotid upstroke, no jugular venous distention. Lungs: Minimal crackles with poor inspiratory effort Heart: Irregular pulse, mild systolic murmur audible Abdomen: Soft nontender, positive bowel sounds. Extremities: No edema, intact distal pulses. Neuro: Alert, oritented, no focal deficits. Detailed neuro exam was not performed. ASSESSMENT: # Generalized weakness and lightheadedness # Questionable fall, questionable syncope # Fever likely sepsis # Failure to thrive # Persistent atrial fibrillation # CAD status post PCI at [place] in 2003 # Carotid disease status post carotid stent in [place] 2021 # Essential hypertension # Dyslipidemia # Type 2 diabetes PLAN: From cardiology's perspective medications were reviewed and we will continue the same. Obtain formal KATHY report At the time of discharge, patient will follow-up in the office with Dr. Reed. MYSQL DEVELOPER note has been reviewed, I agree with a documented findings and plan of care. Patient was seen and examined. Objective - Vital Signs Vital signs: Vital Signs Temp 97.5 F L 01/25/25 04:25 Pulse 81 01/25/25 04:25 Resp 20 01/25/25 04:25 BP 152/90 01/25/25 04:25 Pulse Ox 95 01/25/25 04:25 FiO2 Intake & Output 01/24/25 01/25/25 01/25/25 18:59 06:59 18:59 Intake Total 0 50 Output Total 550 2450 Balance -550 -2450 50 Weight 117.5 kg Intake: IV 50 Oral 0 Output: Urine 550 2450 Other: Voiding Method Indwelling Catheter Indwelling Catheter - Labs CBC & Chem 7: 01/25/25 06:44 01/25/25 06:44 Labs: Abnormal Lab Results - Last 24 Hours (Table) 01/24/25 01/24/25 01/24/25 Range/Units 11:20 16:09 21:08 RBC (4.40-5.60) 10*6/uL Hgb (13.0-17.0) g/dL Hct (39.6-50.0) % Immature Gran # (0.00-0.04) 10*3/uL Lymphocytes # (0.90-5.00) 10*3/uL Sodium (137-145) mmol/L Carbon Dioxide (22-30) mmol/L Creatinine (0.66-1.25) mg/dL Glucose (74-99) mg/dL POC Glucose (mg/dL) 131 H 139 H 142 H (70-110) mg/dL Calcium (8.4-10.2) mg/dL 01/25/25 01/25/25 01/25/25 Range/Units 06:35 06:44 06:44 RBC 3.38 L (4.40-5.60) 10*6/uL Hgb 9.5 L (13.0-17.0) g/dL Hct 28.6 L (39.6-50.0) % Immature Gran # 0.05 H (0.00-0.04) 10*3/uL Lymphocytes # 0.82 L (0.90-5.00) 10*3/uL Sodium 134 L (137-145) mmol/L Carbon Dioxide 19 L (22-30) mmol/L Creatinine 0.61 L (0.66-1.25) mg/dL Glucose 122 H (74-99) mg/dL POC Glucose (mg/dL) 130 H (70-110) mg/dL Calcium 7.7 L (8.4-10.2) mg/dL Microbiology - Last 24 Hours (Table) 07/14/25 06:30 Blood Culture Gram Stain - Preliminary Blood Blood Culture - Preliminary Pseudomonas aeruginosa Molecular ID
[2025-01-25] MEDS: MAGNESIUM SULFATE-D5W PMX 1 GM in DEXTROSE/WATER 1 100ML.BAG IVPB ONE (11:23)
[2025-01-25 11:44] LABS: Glucose,Whole Blood 129 mg/dL (70-110)
[2025-01-25 11:45] VITALS: BMI 36.1
--- NOTE | 2025-01-25 13:40 | P.PN ---
Subjective Progress Note Date: 01/25/25 Principal diagnosis: Reason for follow-up is fever/Pseudomonas bacteremia Patient is a 84-year-old male with a past medical history significant for Atrial Fibrillation, Coronary Artery Disease (CAD), Diabetes Mellitus, Hyperlipidemia, Hypertension, Syncope, Thyroid Disorder presenting to the hospital for evaluation of weakness and back pain did have a fever prompting this consultation. On today's evaluation that is 01/25/2025,the patient remains to be afebrile, coral saunders is on room air not requiring supplemental oxygen and denies any shortness of breath no chest pain or cough.Patient denies having any nausea or vomiting, no abdominal pain and no diarrhea has been reported. Patient would count is 5.8, creatinine 0.61 blood culture repeat from 01/24/2025 so far negative Objective - Vital Signs Vital signs: Vital Signs Temp 98.1 F 01/25/25 12:00 Pulse 60 01/25/25 12:00 Resp 18 01/25/25 12:00 BP 154/63 01/25/25 12:00 Pulse Ox 97 01/25/25 12:00 FiO2 Intake & Output 01/24/25 01/25/25 01/25/25 18:59 06:59 18:59 Intake Total 0 50 Output Total 550 2450 Balance -550 -2450 50 Weight 117.5 kg 117.5 kg Intake: IV 50 Oral 0 Output: Urine 550 2450 Other: Voiding Method Indwelling Catheter Indwelling Catheter Indwelling Catheter - Exam GENERAL DESCRIPTION: An elderly male lying in bed in no distress RESPIRATORY SYSTEM: Unlabored breathing , decreased breath sounds at bases HEART: S1 S2 regular rate and rhythm , ABDOMEN: Soft , no tenderness EXTREMITIES: No edema feet - Labs CBC & Chem 7: 01/25/25 06:44 01/25/25 06:44 Labs: Abnormal Lab Results - Last 24 Hours (Table) 01/24/25 01/24/25 01/25/25 Range/Units 16:09 21:08 06:35 RBC (4.40-5.60) 10*6/uL Hgb (13.0-17.0) g/dL Hct (39.6-50.0) % Immature Gran # (0.00-0.04) 10*3/uL Lymphocytes # (0.90-5.00) 10*3/uL Sodium (137-145) mmol/L Carbon Dioxide (22-30) mmol/L Creatinine (0.66-1.25) mg/dL Glucose (74-99) mg/dL POC Glucose (mg/dL) 139 H 142 H 130 H (70-110) mg/dL Calcium (8.4-10.2) mg/dL 01/25/25 01/25/25 01/25/25 Range/Units 06:44 06:44 11:42 RBC 3.38 L (4.40-5.60) 10*6/uL Hgb 9.5 L (13.0-17.0) g/dL Hct 28.6 L (39.6-50.0) % Immature Gran # 0.05 H (0.00-0.04) 10*3/uL Lymphocytes # 0.82 L (0.90-5.00) 10*3/uL Sodium 134 L (137-145) mmol/L Carbon Dioxide 19 L (22-30) mmol/L Creatinine 0.61 L (0.66-1.25) mg/dL Glucose 122 H (74-99) mg/dL POC Glucose (mg/dL) 129 H (70-110) mg/dL Calcium 7.7 L (8.4-10.2) mg/dL Microbiology - Last 24 Hours (Table) 01/24/25 06:49 Blood Culture - Preliminary Blood 01/22/25 06:30 Blood Culture Gram Stain - Final Blood Blood Culture - Final Pseudomonas aeruginosa Molecular ID Assessment and Plan (1) Back pain Current Visit: Yes Status: Acute Code(s): M54.9 - DORSALGIA, UNSPECIFIED SNOMED Code(s): 933174437 (2) SIRS (systemic inflammatory response syndrome) Current Visit: No Status: Acute Code(s): R65.10 - SIRS OF NON-INFECTIOUS ORIGIN W/O ACUTE ORGAN DYSFUNCTION SNOMED Code(s): 695169816 (3) Bacteremia due to Pseudomonas Current Visit: No Status: Acute Code(s): R78.81 - BACTEREMIA; B96.5 - PSEUDOMONAS (MALLEI) CAUSING DISEASES CLASSD [facility] SNOMED Code(s): 5094465051 Plan: 1patient presented to hospital with weakness lightheadedness and near syncopal episode has also been complaining of lower back pain with no history of any trauma no start running a fever did have mild elevated white count concerning for possible lumbosacral spinal disease responsible for this fever 2-patient blood culture positive for Pseudomonas with blood culture on 01/22/2025 also positive MRI of the lumbosacral spine was negative for any discitis or osteomyelitis echocardiogram did not mention any vegetation 3blood culture has been repeated 01/24/2022 and so far negative, apparently KATHY did shows vegetation however he still waiting for the official report for now continue with the cefepime once his blood cultures are negative at 72-hour he will get the PICC line and a 6-week course of IV cefepime Dictation was produced using [employer] dictation software. please excuse any gra mmatical, word or spelling errors. Time with Patient: Less than 30
--- NOTE | 2025-01-25 14:59 | P.PN ---
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 Associated close nonspecific dizziness but no headache. No specific limb weakness or numbness or blurred vision or double vision He has some vision problems and he follow-up with Dr. partida He denies chest pain or dyspnea. No other specific GI/ symptoms He has mild headache about 2-3/10 on the right side He states that recently he has been treated for UTI however he denies any urinary symptoms and urinalysis is negative. Vital stable afebrile. Is mildly tachycardic with heart rate 102. CBC BMP LFT and liver enzymes were unremarkable. Troponin is negative less than 0.012. Urinalysis normal. Chest x-ray showing no acute cardiopulmonary process EKG showing sinus tachycardia congestion with no significant ST-T changes but there is multiple PVCs. He was started on aspirin 325 mg admitted with cardiology team consult Patient currently complains from spasm in his lower back that comes severely for a few seconds before letting go 01/19 Patient awake alert not in distress today. He feels better he says he can get up today compared to yesterday but he still complaining from back pain His back pain looks better than yesterday like 10/19 however once he try to move his leg even with little bend of the knee he developed severe pain in the lower back. No chest pain dyspnea or abdominal pain or tenderness.. He spiked a fever 104 overnight. Labs from yesterday showing WBC 10.2 hemoglobin 12.7. INR 1.1. Potassium is 4.4 creatinine 1.07. Patient still getting normal saline 75 mL/h. He is on Dilaudid for pain control also he is on aspirin Eliquis and Pepcid 01/20 Patient clinically the same, awake alert complaining from severe low back pain. Dilaudid 0.5 mg was not enough we will increase the dose to 1 mg. No chest pain no headache or dizziness no other new complaints. He is currently on antibiotic IV vancomycin and cefepime. Also infectious disease team following closely. Blood culture is coming back positive pending sensitivity and further evaluation. Because of spine infection is suspected. Patient may require procedure we going to hold Eliquis starting tonight. He got dose this morning. We are going to start bridging heparin tonight. Patient received boluses of normal saline, hypotension improved, creatinine function is stable. MRI of the spine with and without contrast ordered by infectious disease team. Is going to be done tonight however because of his fever it was held this afternoon. We are treating his fever aggressively with Tylenol, ibuprofen ordered and cooling blanket. Blood pressure is also monitored closely and discussed with the staff to give boluses if required. 01/21 Patient was hypotensive overnight and he was transferred to the ICU. They gave him only a small bolus of normal saline 500 cc which apparently was not enough. With getting more fluid his blood pressure improved. He did not really need any pressors. Eventually patient was transferred back to the general medical floor today. His back pain controlled with Dilaudid MRI showed no epidural abscess but there is severe spinal stenosis at L3-L4. Neurology service recommended orthopedic follow-up as an outpatient not candidate for any surgical intervention because septic. Patient currently covered with cefepime, 2 blood culture samples came back positive for Pseudomonas. Cardiology team on the case echocardiogram requested. Also cardio recommend Holter monitor as an outpatient. 01/22/2025 Patient is seen in follow-up currently sitting up in the chair being followed by multiple consultations maintained on antibiotics with infectious disease following as patient's cultures were positive for Pseudomonas. Patient co ntinues with significant weakness although per case management, family reports will be going home. Patient has extremely weak and would benefit from ECF. Patient also having some left pinky pain and discoloration with concerns of possible ischemia to this left pinky and vascular surgery has been consulted recommending a Doppler of the left extremity. Patient is afebrile and reports to not feeling well and generally weak. Recommend PT/OT therapy evaluation and reevaluation with discussion of possible ECF on discharge. Patient with significant comorbidities and continued ongoing difficulties, patient would benefit from ECF for continued strength and mobility. 01/23/2025 Patient is seen in follow-up today being followed by multiple consultations maintained on cefepime at this time with infectious disease following as patient had positive blood cultures that appear persistent and continued to show Pseudomonas aeruginosa. Preliminary repeat cultures remain positive as well and cardiology will be reconsulted for request of KATHY per ID recommendations which is pending at this time. Patient did have left fifth finger significant discoloration and pain and was evaluated by vascular surgery showing clinical improvement and discoloration is improved. Patient reports this had been devi ting prior to admission from previous falls but he did not recall hurting anything with the fall. Vascular surgery not recommending any intervention at this time and patient is continued on Eliquis. Patient is currently afebrile with no reports of chest pain or shortness of breath. Patient continues to be weak and with prolonged hospitalization would recommend continued PT/OT therapy. Patient and family are adamant they are returning home on discharge. Will discuss with case management regarding discharge planning once patient is stabilized. Currently awaiting cardiology reevaluation for possible KATHY 01/24/2025 Patient is evaluated in follow-up on the medical floor. He is currently low and oriented x 2 and appears mildly confused today. He is currently pending cardiac evaluation for possible KATHY as he continues to have persistent Pseudomonas bacteremia with concern for infective endocarditis. Otherwise he has no acute complaints at this time. He reports continued left finger discoloration and pain. White blood cell count remains within normal limits. His sodium level today is 135, BUN of 13 creatinine of 0.69 magnesium level of 1.5. 01/25/2025 Patient is evaluated today in follow-up on the medical floor. He is awake alert and oriented x 3. He underwent transechocardiogram and per cardiology reports there is a high concern for vegetation. Awaiting formal KATHY report. Repeat blood culture has been taken and currently pending. He has 3 positive Pseudomonas cultures. His labs today reveal a white blood cell count of 5.92, hemoglobin 9.5, sodium 134, BUN of 10 creatinine 0.61 calcium 7.7 magnesium 1.6. He remains on IV cefepime per infectious disease. Review of systems: Constitutional: No reports of fatigue, no fever, or chills Cardiovascular: No reports of chest pain or palpitations Respiratory: No reports of shortness of breath or cough GI: No reports of nausea, vomiting, or diarrhea, reports not eating much : No reports of dysuria or retention Neurovascular: reports of generalized weakness with difficulty in ambulating, left pinky finger pain and discoloration appears to be improving All medications have been reviewed Physical exam: GENERAL: The patient is alert and oriented x3, not in any acute distress. Well developed, elderly appearing, chronically ill appearing. Obese HEENT: Pupils are round and equally reacting to light. EOMI. No scleral icterus. No conjunctival pallor. Normocephalic, atraumatic. No pharyngeal erythema. No t hyromegaly. CARDIOVASCULAR: S1 and S2 muffled PULMONARY: Diminished breath sounds bilaterally otherwise chest is clear to auscultation, no wheezing , no crackles. ABDOMEN: Soft, obese, nontender, nondistended, normoactive bowel sounds. No palpable organomegaly. MUSCULOSKELETAL: No joint swelling or deformity. EXTREMITIES: No cyanosis, clubbing, or pedal edema. Left finger fifth digit mildly discolored showing improvements in cyanosis, mildly cool to touch at the tip, cap refill at 3 seconds NEUROLOGICAL: Gross neurological examination did not reveal any focal deficits. Diffusely weak SKIN: No rashes. no petechiae. Assessment: Severe sepsis with septic shock with Pseudomonas bacteremia on admission, bacteremia is persistent with Pseudomonas and repeat blood cultures remain positive Pseudomonas bacteremia with concern for infective endocarditis per KATHY awaiting formal KATHY reports Recurrent syncope and falling, last few seconds with no seizure activity Fever of unknown origin, on admission Left fifth digit finger discoloration, cyanotic, cold to the touch with concerns of septic embolism versus possible injury from the fall, improving and no plans of surgical intervention at this time Acute severe lower back pain, secondary to severe lumbar spinal stenosis seen on the MRI, no evidence of osteomyelitis or discitis Generalized weakness and gait dysfunction Hypomagnesemia, improved after replacement Dehydration secondary to poor oral intake A-fib with mild RVR, maintained on Eliquis, currently rate controlled Hypertension Hyperlipidemia Coronary disease status post stent Obesity with a BMI of 36.3 AAA GI prophylaxis DVT prophylaxis Full code Plan: Continue with antibiotic cefepime. Follow-up blood culture results remain positive for Pseudomonas and repeat blood cultures pending, infectious disease following and will continue current regimen. Patient is s/p KATHY with concern for vegetation. Once his blood cultures have been negative for 72 hours patient will undergo PICC line placement with plans for 6-week course of IV cefepime on discharge per infectious disease Continue gentle hydration with improvement in blood pressure Patient is maintained on Eliquis and aspirin. left fifth digit discoloration with cyanosis with concerns of septic embolism although improving and has positive pulses, likely injury with bruising secondary to frequent falls prior to hospitalization, vascular surgery has evaluated with no surgical interventions planned recommending outpatient follow- up Follow-up on repeat labs and replace electrolytes per protocol Recommend PT/OT therapy reevaluation as patient and family were persistent on patient going home although patient is significantly weak with prolonged hospitalization and continued falls, would benefit from ECF Patient is high risk for readmissions given significant comorbidities The impression and plan of care has been dictated by Miranda Mayes Nurse Practitioner as directed. This is the verbal consent since Dr. Jake MD I have performed a history and examination and MDM of this patient, discussed the same with the dictator, and agree with the dictator's assessment and plan as written ,documented as a scribe. Based on total visit time, I have performed more than 50% of the visit. Objective - Vital Signs Vital signs: Vital Signs Temp 97.5 F L 01/25/25 04:25 Pulse 81 01/25/25 04:25 Resp 20 01/25/25 04:25 BP 152/90 01/25/25 04:25 Pulse Ox 95 01/25/25 04:25 FiO2 Intake & Output 01/24/25 01/25/25 01/25/25 18:59 06:59 18:59 Intake Total 0 50 Output Total 550 2450 Balance -550 -2450 50 Weight 117.5 kg Intake: IV 50 Oral 0 Output: Urine 550 2450 Other: Voiding Method Indwelling Catheter Indwelling Catheter - Labs CBC & Chem 7: 01/25/25 06:44 01/25/25 06:44 Labs: Abnormal Lab Results - Last 24 Hours (Table) 01/24/25 01/24/25 01/24/25 Range/Units 11:20 16:09 21:08 RBC (4.40-5.60) 10*6/uL Hgb (13.0-17.0) g/dL Hct (39.6-50.0) % Immature Gran # (0.00-0.04) 10*3/uL Lymphocytes # (0.90-5.00) 10*3/uL Sodium (137-145) mmol/L Carbon Dioxide (22-30) mmol/L Creatinine (0.66-1.25) mg/dL Glucose (74-99) mg/dL POC Glucose (mg/dL) 131 H 139 H 142 H (70-110) mg/dL Calcium (8.4-10.2) mg/dL 01/25/25 01/25/25 01/25/25 Range/Units 06:35 06:44 06:44 RBC 3.38 L (4.40-5.60) 10*6/uL Hgb 9.5 L (13.0-17.0) g/dL Hct 28.6 L (39.6-50.0) % Immature Gran # 0.05 H (0.00-0.04) 10*3/uL Lymphocytes # 0.82 L (0.90-5.00) 10*3/uL Sodium 134 L (137-145) mmol/L Carbon Dioxide 19 L (22-30) mmol/L Creatinine 0.61 L (0.66-1.25) mg/dL Glucose 122 H (74-99) mg/dL POC Glucose (mg/dL) 130 H (70-110) mg/dL Calcium 7.7 L (8.4-10.2) mg/dL Microbiology - Last 24 Hours (Table) 01/22/25 06:30 Blood Culture Gram Stain - Preliminary Blood Blood Culture - Preliminary Pseudomonas aeruginosa Molecular ID Assessment and Plan Time with Patient: Less than 30
[2025-01-25 16:55] LABS: Glucose,Whole Blood 155 mg/dL (70-110)
[2025-01-25] MEDS: FAMOTIDINE 20 MG TAB PO SCH (20:00)
[2025-01-25 20:01] LABS: Glucose,Whole Blood 117 mg/dL (70-110)
[2025-01-25] MEDS: METOPROLOL TARTRATE 50 MG TAB PO SCH (20:05)
--- NOTE | 2025-01-25 20:18 | P.PN ---
Subjective Progress Note Date: 01/25/25 This is an 84-year-old male patient with a known history of diabetes mellitus, hyperlipidemia, hypertension, carotid artery disease status post stent in 2021, coronary disease status post intervention in 2003, persistent atrial fibrillation. He presented here to the emergency room on January 18, 2025 with complaints of dizziness lightheadedness possible syncopal episode and generalized weakness. He had a rapid response team called on him on January 18 and again on January 19, 2025 for hypotension and high fevers. He was subsequently transferred here to the intensive care unit where he is seen in consultation today. Chest x-ray shows cardiomegaly and diffuse interstitial opacity mild fluid volume overload. EKG reveals atrial fibrillation with a controlled ventricular response. White count 7.1. Hemoglobin 9.0. Platelets 130. Sodium 135. Potassium 3.6. Bicarb 19. BUN 29. Creatinine 0.87. Glucose 102. Stool for occult blood is positive. Blood cultures showing gram-negative bacilli. He is currently on a heparin drip. Antibiotics in the form of cefepime. He was briefly on norepinephrine for blood pressure support. Current mean arterial pressures in the mid to upper 60s. He is resting in bed. Maintaining O2 saturations in the 90s to 100 on 2 L/min per nasal cannula. He is currently afebrile. The plan is for an MRI of the spine today looking for source of infection. On today's evaluation of 01/22/2025, the patient is being seen for a follow-up. The patient is being treated for pseudomonal septicemia and the patient remains on IV cefepime. Clinically stable. Hemodynamically stable. No fever. No chills. Mental status is appropriate and adequate at this point in time. However, the patient has developed pain in his left fifth finger and there is coldness and poor capillary refill and obvious ischemic changes. Based on that, recommended vascular consultation. Noted the patient has adequate radial and ulnar nerve pulses involving the left upper extremity. Patient is known to have chronic atrial fibrillation and he is maintained on anticoagulation with Eliqu is. He is known to have coronary artery disease, hypertension hyperlipidemia and diabetes mellitus. His undergone previous coronary stenting and is also known to have an abdominal aortic aneurysm. He is currently on IV cefepime. Rest of the medications are essentially unchanged. No surgical respiratory distress and the patient remains on room air oxygen with a pulse ox of 95%. Currently afebrile. On today's evaluation of 01/23/2025, the patient remains on IV cefepime for pseudomonal septicemia. Hemodynamically stable. Some occasional confusion yet for the most part, no focal neurological deficit and the patient is awake alert and communicating. Pulse ox 97% room air oxygen. ID is on the case. The patient was also seen by vascular surgery regarding the left finger cyanosis and pain which is attributed to microvascular ischemia. The patient had a 2D echocardiogram that was technically difficult. The patient has essentially normal LV function. The patient remains on anticoagulation regarding atrial fibrillation the patient remains on anticoagulation with Eliquis. Blood work from today shows a white cell count of 5.4 with a heme of 9.4 and platelet count of 146. BUN 16 with a creatinine of 0.7 and the patient's sodium level is at 136. No other significant events overnight. On today's evaluation of 01/24/2025, patient is being seen for a follow-up. The patient is awake and alert and the patient remains on room air oxygen. No hypotension. No fever or chills. Left fifth finger remains painful and swollen. Adequate pulses in all 4 extremities. Meanwhile, the repeat blood culture that was obtained on 01/22/2025 is still showing positive Pseudomonas aeruginosa. The white cells are 6.4 with a hemoglobin 10.3 and a platelet count of 166. BUN is 15 with a creatinine of 0.69 and sodium levels at 135. The patient remains on IV cefepime. Rest of her medications are essentially unchanged and the patient is on normal saline at rate of 50 cc an hour. The pat ient has bilateral knee replacement. The joints are essentially nonswollen and nonpainful at this point. Clinically, there has been also improvement in the pain and discoloration of the left pinky finger. ID is on the case. Exact source of pseudomonal infection is not clear. Consider endocarditis. Consider a KATHY. ID is on the case. On 01/25/2025, the patient is being seen for a follow-up. The patient remains on IV cefepime. Afebrile. Hemodynamically stable. Remains on room air oxygen. He has a septic embolism to his left fifth digit and the involved finger seems to be less painful and there is improved coloration. No nausea. No vomiting. No abdominal pain. No diarrhea. The patient had follow-up blood work that showed a white cell count of 5.9 with a hemoglobin 9.5 and a platelet count of 173. BUN is 10 with a creatinine 0.6. Sodium levels at 134. ID is on the case. As stated, the patient had persistent bacteremia with Pseudomonas aeruginosa and awaiting follow-up blood cultures that was repeated on 01/24/2025 which has been negative thus far. KATHY is in progress. Objective - Vital Signs Vital signs: Vital Signs Temp 98.1 F 01/25/25 08:00 Pulse 60 01/25/25 08:00 Resp 20 01/25/25 08:00 BP 152/63 01/25/25 08:00 Pulse Ox 95 01/25/25 08:00 FiO2 Intake & Output 01/24/25 01/25/25 01/25/25 18:59 06:59 18:59 Intake Total 0 50 Output Total 550 2450 Balance -550 -2450 50 Weight 117.5 kg Intake: IV 50 Oral 0 Output: Urine 550 2450 Other: Voiding Method Indwelling Catheter Indwelling Catheter Indwelling Catheter - Exam GENERAL EXAM: Alert, weak obese 84-year-old male, on room air oxygen, fairly comfortable in no apparent distress. HEAD: Normocephalic. EYES: Normal reaction of pupils, equal size. NOSE: Clear with pink turbinates. THROAT: No erythema or exudates. NECK: No masses, no JVD. CHEST: No chest wall deformity. LUNGS: Equal air entry with no crackles, wheeze, rhonchi or dullness. CVS: S1 and S2 normal with no audible murmur, regular rhythm. ABDOMEN: No hepatosplenomegaly, normal bowel sounds, no guarding or rigidity. SPINE: No scoliosis or deformity SKIN: No rashes CENTRAL NERVOUS SYSTEM: No focal deficits, tone is normal in all 4 extremities. EXTREMITIES: There is no peripheral edema. No clubbing, no cyanosis. Peripheral pulses are intact. - Labs CBC & Chem 7: 01/25/25 06:44 01/25/25 06:44 Labs: Abnormal Lab Results - Last 24 Hours (Table) 01/24/25 01/24/25 01/24/25 Range/Units 11:20 16:09 21:08 RBC (4.40-5.60) 10*6/uL Hgb (13.0-17.0) g/dL Hct (39.6-50.0) % Immature Gran # (0.00-0.04) 10*3/uL Lymphocytes # (0.90-5.00) 10*3/uL Sodium (137-145) mmol/L Carbon Dioxide (22-30) mmol/L Creatinine (0.66-1.25) mg/dL Glucose (74-99) mg/dL POC Glucose (mg/dL) 131 H 139 H 142 H (70-110) mg/dL Calcium (8.4-10.2) mg/dL 01/25/25 01/25/25 01/25/25 Range/Units 06:35 06:44 06:44 RBC 3.38 L (4.40-5.60) 10*6/uL Hgb 9.5 L (13.0-17.0) g/dL Hct 28.6 L (39.6-50.0) % Immature Gran # 0.05 H (0.00-0.04) 10*3/uL Lymphocytes # 0.82 L (0.90-5.00) 10*3/uL Sodium 134 L (137-145) mmol/L Carbon Dioxide 19 L (22-30) mmol/L Creatinine 0.61 L (0.66-1.25) mg/dL Glucose 122 H (74-99) mg/dL POC Glucose (mg/dL) 130 H (70-110) mg/dL Calcium 7.7 L (8.4-10.2) mg/dL Microbiology - Last 24 Hours (Table) 01/22/25 06:30 Blood Culture Gram Stain - Preliminary Blood Blood Culture - Preliminary Pseudomonas aeruginosa Molecular ID Assessment and Plan Plan: Sepsis with septic shock secondary to Pseudomonas aeruginosa septicemia, currently on IV cefepime. Clinically and hemodynamically stable. ID is on the case. Exact source of the pseudomonal septicemia is not clear at this point. The most recent blood culture that was obtained on 01/22/2025 is still showing positive Pseudomonas aeruginosa and initial blood culture was positive on 01/19/2025 and the patient remains on IV cefepime. Consider infective endocarditis. Th knee joints are within normal limits and the patient is post bilateral knee arthroplasty. Hypotension with dizziness and near syncope secondary to above, recovered Febrile illness secondary to above, recovered and the patient is currently afebrile Left hand fifth digit ischemia, likely arterial, rule out septic embolism versus microvascular embolism and the patient is to be seen by vascular surgery. Clinically improving and vascular surgery remains on the case. Anemia with stool for occult blood positive Acute low back pain, MRI of the lumbar spine was completed and the patient has no evidence of discitis. 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 Atrial fibrillation anticoagulated with Eliquis, Hypertension, history of Hyperlipidemia Coronary artery disease status post stent placement Carotid artery disease status post repair Plan: Persistent bacteremia with Pseudomonas aeruginosa, awaiting follow-up blood cultures from 01/24/2025 which seems to be essentially negative for now. The patient has pseudomonal septicemia. Exact source of the sepsis is not clear. MRI of the lumbar spine showed no evidence of any discitis or paraspinal abscess. Rule out underlying urinary tract infection with secondary pseudomonal septicemia. Rule out skin source of infection. No evidence of any pneumonia. Cannot rule out possibility of endocarditis. Limited echocardiogram done on 01/22/2025 showed a preserved LV function with an ejection fraction of 6065%, valves were not adequately addressed. KATHY is in progress Currently cefepime Infectious diseases on the case Briefly required norepinephrine, currently hemodynamically stable and off pressors, remains hemodynamically stable. Currently stable and on normal saline at 50 cc an hour continue anticoagulation with Eliquis Vascular surgery consultation regarding the ischemic left fifth digit. Titrate the FiO2 as needed, currently on room air oxygen We will continue to follow and make further recommendations based on his clinical status
[2025-01-26 05:52] LABS: Glucose,Whole Blood 120 mg/dL (70-110)
[2025-01-26 07:06] LABS: Basophils # (A) 0.04 10*3/uL (0.00-0.10); Basophils % (A) 0.7 %; Eosinophils # (A) 0.18 10*3/uL (0.04-0.35); Eosinophils % (A) 3.1 %; HCT 29.2 % (39.6-50.0); HGB 9.8 g/dL (13.0-17.0); Lymphocytes # (A) 0.84 10*3/uL (0.90-5.00); Lymphocytes % (A) 14.7 %; MCH 28.7 pg (27.0-32.0); MCHC 33.6 g/dL (32.0-37.0); MCV 85.6 fL (80.0-97.0); Monocytes # (A) 0.45 10*3/uL (0.20-1.00); Monocytes % (A) 7.9 %; Neutrophils # (A) 4.17 10*3/uL (1.80-7.70); Neutrophils % (A) 72.9 %; Platelet Count 215 10*3/uL (140-440); RBC 3.41 10*6/uL (4.40-5.60); RDW 14.3 % (11.5-14.5); WBC 5.72 10*3/uL (4.50-10.00)
[2025-01-26 07:45] LABS: African American GFR (CKD) >90 (>60 ml/min/1.73 sqM); Anion Gap 9 mmol/L; Blood Urea Nitrogen 11 mg/dL (9-20); Calcium 8.0 mg/dL (8.4-10.2); Carbon Dioxide 19 mmol/L (22-30); Chloride 106 mmol/L (98-107); Glucose 116 mg/dL (74-99); Magnesium 1.6 mg/dL (1.6-2.3); Non-African American GFR(CKD) >90 (>60 ml/min/1.73 sqM); Potassium 3.8 mmol/L (3.5-5.1); Sodium 134 mmol/L (137-145)
--- NOTE | 2025-01-26 08:24 | P.TEE ---
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 Patient received moderate conscious sedation with 1 mg of Versed and 50 mcg of fentanyl total sedation time was 5 minutes patient tolerated the procedure well without any obvious intact complications Findings: Aortic valve is a 3 leaflet valve. There is a small echodense lesion attached to the ventricular surface of the right coronary cusp with mild aortic regurgitation. Appearance of the echodense lesion is consistent with a vegetation. Aortic root appears normal. There is no perivalvular abscess. Mitral valve shows mitral and calcification with mild mitral regurgitation. There is no vegetation on the mitral valve. Tricuspid valve shows moderate tricuspid regurgitation. There is no vegetation of the tricuspid valve. Left ventricle has normal size shows mild LV dysfunction with an ejection fraction of 45%. There is biatrial enlargement. There is no evidence of [id number] shunt by color-flow Doppler or [id number] shunt by agitated saline contrast study. Conclusions: Vegetation noted over the right coronary cusp
--- NOTE | 2025-01-26 08:45 | P.PN ---
Subjective Progress Note Date: 01/26/25 This is an 84-year-old gentleman who follows with Dr. Morales with a past medical history of CAD status post PCI at [facility] in 2003, carotid disease status post carotid stent in [facility] in 2021, hypertension, hyperlipidemia, persistent atrial fibrillation and type 2 diabetes. Presented to the hospital because of recurrent syncope passing out over the last 3 to 4 days. Also complained of dizziness, lightheadedness and generalized weakness. Recently treated for UTI. There was a concern for sepsis during this admission. Patient remains in atrial fibrillation with controlled ventricular response. Echocardiogram with Doppler study showed normal LV systolic function. 01/24/2025 Dr. Duong is requesting KATHY because patient has positive blood cultures for Pseudomonas aeruginosa. Patient will be scheduled tomorrow with Dr. Reed. 01/25/2025 Patient seen and examined. He underwent KATHY which was concerning for vegetation. Formal report is pending at this time. Patient has been afebrile, blood pressure 152/63, heart rate 60, pulse ox 95% on room air. 01/26/2025 Patient seen and examined. KATHY revealed vegetation noted on the right coronary cusp of the aortic valve. Patient has been afebrile, heart rate in the 60s to 80s, blood pressure 162/75, pulse ox 94% on room air. WBC 5.7, hemoglobin 9.8, creatinine 0.64, potassium 3.8. PHYSICAL EXAMINATION: Neck: Brisk carotid upstroke, no jugular venous distention. Lungs: Minimal crackles with poor inspiratory effort Heart: Irregular pulse, mild systolic murmur audible Abdomen: Soft nontender, positive bowel sounds. Extremities: No edema, intact distal pulses. Neuro: Alert, oritented, no focal deficits. Detailed neuro exam was not perform ed. ASSESSMENT: # Generalized weakness and lightheadedness # Questionable fall, questionable syncope # Sepsis, Pseudomonas bacteremia secondary to endocarditis with vegetation on the aortic valve no I have no idea # Failure to thrive # Persistent atrial fibrillation # CAD status post PCI at [facility] in 2003 # Carotid disease status post carotid stent in [facility] 2021 # Essential hypertension # Dyslipidemia # Type 2 diabetes PLAN: From cardiology's perspective medications were reviewed and we will continue the same: Eliquis, aspirin, atorvastatin, Imdur, losartan, Lopressor. Losartan increased to 50 mg daily At the time of discharge, patient will follow-up in the office with Dr. Reed. CHEMICAL [employer]ECTION EXPERT note has been reviewed, I agree with a documented findings and plan of care. Patient was seen and examined. Objective - Vital Signs Vital signs: Vital Signs Temp 98.9 F 01/26/25 03:11 Pulse 69 01/26/25 03:11 Resp 22 01/26/25 03:11 BP 162/75 01/26/25 03:11 Pulse Ox 94 L 01/26/25 03:11 FiO2 Intake & Output 01/25/25 01/26/25 01/26/25 18:59 06:59 18:59 Intake Total 150 240 Output Total 700 1200 Balance -550 -960 Weight 117.5 kg 17.5 kg Intake: IV 50 Intake, IV Titration 100 Amount Magnesium Sulfate-D5w Pmx 100 1 gm In Dextrose/Water 1 100ml.bag @ 100 mls/hr IVPB ONCE ONE Rx#: [id number] Oral 240 Output: Urine 700 1200 Other: Voiding Method Indwelling Catheter Indwelling Catheter - Labs CBC & Chem 7: 01/26/25 05:52 01/26/25 05:52 Labs: Abnormal Lab Results - Last 24 Hours (Table) 01/25/25 01/25/25 01/25/25 Range/Units 11:42 16:53 19:57 RBC (4.40-5.60) 10*6/uL Hgb (13.0-17.0) g/dL Hct (39.6-50.0) % Lymphocytes # (0.90-5.00) 10*3/uL Sodium (137-145) mmol/L Carbon Dioxide (22-30) mmol/L Creatinine (0.66-1.25) mg/dL Glucose (74-99) mg/dL POC Glucose (mg/dL) 129 H 155 H 117 H (70-110) mg/dL Calcium (8.4-10.2) mg/dL 01/26/25 01/26/25 01/26/25 Range/Units 05:50 05:52 05:52 RBC 3.41 L (4.40-5.60) 10*6/uL Hgb 9.8 L (13.0-17.0) g/dL Hct 29.2 L (39.6-50.0) % Lymphocytes # 0.84 L (0.90-5.00) 10*3/uL Sodium 134 L (137-145) mmol/L Carbon Dioxide 19 L (22-30) mmol/L Creatinine 0.64 L (0.66-1.25) mg/dL Glucose 116 H (74-99) mg/dL POC Glucose (mg/dL) 120 H (70-110) mg/dL Calcium 8.0 L (8.4-10.2) mg/dL Microbiology - Last 24 Hours (Table) 01/24/25 06:49 Blood Culture - Preliminary Blood 01/22/25 06:30 Blood Culture Gram Stain - Final Blood Blood Culture - Final Pseudomonas aeruginosa Molecular ID
[2025-01-26] MEDS: LOSARTAN 50 MG TAB PO SCH (09:44)
[2025-01-26 11:32] LABS: Glucose,Whole Blood 140 mg/dL (70-110)
--- NOTE | 2025-01-26 13:50 | P.PN ---
Subjective Progress Note Date: 01/26/25 This is an 84-year-old male patient with a known history of diabetes mellitus, hyperlipidemia, hypertension, carotid artery disease status post stent in 2021, coronary disease status post intervention in 2003, persistent atrial fibrillation. He presented here to the emergency room on January 18, 2025 with complaints of dizziness lightheadedness possible syncopal episode and generalized weakness. He had a rapid response team called on him on January 18 and again on January 19, 2025 for hypotension and high fevers. He was subsequently transferred here to the intensive care unit where he is seen in consultation today. Chest x-ray shows cardiomegaly and diffuse interstitial opacity mild fluid volume overload. EKG reveals atrial fibrillation with a controlled ventricular response. White count 7.1. Hemoglobin 9.0. Platelets 130. Sodium 135. Potassium 3.6. Bicarb 19. BUN 29. Creatinine 0.87. Glucose 102. Stool for occult blood is positive. Blood cultures showing gram-negative bacilli. He is currently on a heparin drip. Antibiotics in the form of cefepime. He was briefly on norepinephrine for blood pressure support. Current mean arterial pressures in the mid to upper 60s. He is resting in bed. Maintaining O2 saturations in the 90s to 100 on 2 L/min per nasal cannula. He is currently afebrile. The plan is for an MRI of the spine today looking for source of infection. On today's evaluation of 01/22/2025, the patient is being seen for a follow-up. The patient is being treated for pseudomonal septicemia and the patient remains on IV cefepime. Clinically stable. Hemodynamically stable. No fever. No chills. Mental status is appropriate and adequate at this point in time. However, the patient has developed pain in his left fifth finger and there is coldness and poor capillary refill and obvious ischemic changes. Based on that, recommended vascular consultation. Noted the patient has adequate radial and ulnar nerve pulses involving the left upper extremity. Patient is known to have chronic atrial fibrillation and he is maintained on anticoagulation with Eliqu is. He is known to have coronary artery disease, hypertension hyperlipidemia and diabetes mellitus. His undergone previous coronary stenting and is also known to have an abdominal aortic aneurysm. He is currently on IV cefepime. Rest of the medications are essentially unchanged. No surgical respiratory distress and the patient remains on room air oxygen with a pulse ox of 95%. Currently afebrile. On today's evaluation of 01/23/2025, the patient remains on IV cefepime for pseudomonal septicemia. Hemodynamically stable. Some occasional confusion yet for the most part, no focal neurological deficit and the patient is awake alert and communicating. Pulse ox 97% room air oxygen. ID is on the case. The patient was also seen by vascular surgery regarding the left finger cyanosis and pain which is attributed to microvascular ischemia. The patient had a 2D echocardiogram that was technically difficult. The patient has essentially normal LV function. The patient remains on anticoagulation regarding atrial fibrillation the patient remains on anticoagulation with Eliquis. Blood work from today shows a white cell count of 5.4 with a heme of 9.4 and platelet count of 146. BUN 16 with a creatinine of 0.7 and the patient's sodium level is at 136. No other significant events overnight. On today's evaluation of 01/24/2025, patient is being seen for a follow-up. The patient is awake and alert and the patient remains on room air oxygen. No hypotension. No fever or chills. Left fifth finger remains painful and swollen. Adequate pulses in all 4 extremities. Meanwhile, the repeat blood culture that was obtained on 01/22/2025 is still showing positive Pseudomonas aeruginosa. The white cells are 6.4 with a hemoglobin 10.3 and a platelet count of 166. BUN is 15 with a creatinine of 0.69 and sodium levels at 135. The patient remains on IV cefepime. Rest of her medications are essentially unchanged and the patient is on normal saline at rate of 50 cc an hour. The pat ient has bilateral knee replacement. The joints are essentially nonswollen and nonpainful at this point. Clinically, there has been also improvement in the pain and discoloration of the left pinky finger. ID is on the case. Exact source of pseudomonal infection is not clear. Consider endocarditis. Consider a KATHY. ID is on the case. On 01/25/2025, the patient is being seen for a follow-up. The patient remains on IV cefepime. Afebrile. Hemodynamically stable. Remains on room air oxygen. He has a septic embolism to his left fifth digit and the involved finger seems to be less painful and there is improved coloration. No nausea. No vomiting. No abdominal pain. No diarrhea. The patient had follow-up blood work that showed a white cell count of 5.9 with a hemoglobin 9.5 and a platelet count of 173. BUN is 10 with a creatinine 0.6. Sodium levels at 134. ID is on the case. As stated, the patient had persistent bacteremia with Pseudomonas aeruginosa and awaiting follow-up blood cultures that was repeated on 01/24/2025 which has been negative thus far. KATHY is in progress. On today's evaluation of 01/26/2025, the patient is being seen for a follow-up. The patient had persistent bacteremia with Pseudomonas aeruginosa. 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 Based on the findings, the patient has a small echodense lesion attached to the ventricular surface of the right coronary cusp and mild aortic regurgitation and appearance of the echodense lesion is consistent with vegetation. The patient remains afebrile and hemodynamically stable. Most recent blood culture obtained on 01/24/2025 was negative and the patient remains on IV cefepime and infectious disease and cardiology were both on the case. The white cell count is 5.7 with hemoglobin 9.8 and a platelet count of 250. BUN is 11 with a creatinine of 0.6. Sodium levels at 134. Objective - Vital Signs Vital signs: Vital Signs Temp 98.1 F 01/26/25 08:00 Pulse 72 01/26/25 08:00 Resp 20 01/26/25 08:00 BP 176/64 01/26/25 08:00 Pulse Ox 97 01/26/25 08:00 FiO2 Intake & Output 01/25/25 01/26/25 01/26/25 18:59 06:59 18:59 Intake Total 150 240 340 Output Total 700 1200 800 Balance -943 -960 -460 Weight 117.5 kg 17.5 kg Intake: IV 50 Intake, IV Titration 100 Amount Magnesium Sulfate-D5w Pmx 100 1 gm In Dextrose/Water 1 100ml.bag @ 100 mls/hr IVPB ONCE ONE Rx#: [id number] Oral 240 340 Output: Urine 700 1200 800 Other: Voiding Method Indwelling Catheter Indwelling Catheter Indwelling Catheter - Exam GENERAL EXAM: Alert, weak obese 84-year-old male, on room air oxygen, fairly comfortable in no apparent distress. HEAD: Normocephalic. EYES: Normal reaction of pupils, equal size. NOSE: Clear with pink turbinates. THROAT: No erythema or exudates. NECK: No masses, no JVD. CHEST: No chest wall deformity. LUNGS: Equal air entry with no crackles, wheeze, rhonchi or dullness. CVS: S1 and S2 normal with no audible murmur, regular rhythm. ABDOMEN: No hepatosplenomegaly, normal bowel sounds, no guarding or rigidity. SPINE: No scoliosis or deformity SKIN: No rashes CENTRAL NERVOUS SYSTEM: No focal deficits, tone is normal in all 4 extremities. EXTREMITIES: There is no peripheral edema. No clubbing, no cyanosis. Peripheral pulses are intact. - Labs CBC & Chem 7: 01/26/25 05:52 01/26/25 05:52 Labs: Abnormal Lab Results - Last 24 Hours (Table) 01/25/25 01/25/25 01/26/25 Range/Units 16:53 19:57 05:50 RBC (4.40-5.60) 10*6/uL Hgb (13.0-17.0) g/dL Hct (39.6-50.0) % Lymphocytes # (0.90-5.00) 10*3/uL Sodium (137-145) mmol/L Carbon Dioxide (22-30) mmol/L Creatinine (0.66-1.25) mg/dL Glucose (74-99) mg/dL POC Glucose (mg/dL) 155 H 117 H 120 H (70-110) mg/dL Calcium (8.4-10.2) mg/dL 01/26/25 01/26/25 01/26/25 Range/Units 05:52 05:52 11:30 RBC 3.41 L (4.40-5.60) 10*6/uL Hgb 9.8 L (13.0-17.0) g/dL Hct 29.2 L (39.6-50.0) % Lymphocytes # 0.84 L (0.90-5.00) 10*3/uL Sodium 134 L (137-145) mmol/L Carbon Dioxide 19 L (22-30) mmol/L Creatinine 0.64 L (0.66-1.25) mg/dL Glucose 116 H (74-99) mg/dL POC Glucose (mg/dL) 140 H (70-110) mg/dL Calcium 8.0 L (8.4-10.2) mg/dL Microbiology - Last 24 Hours (Table) 01/24/25 06:49 Blood Culture - Preliminary Blood 01/22/25 06:30 Blood Culture Gram Stain - Final Blood Blood Culture - Final Pseudomonas aeruginosa Molecular ID Assessment and Plan Plan: Infective endocarditis, KATHY was noted and the patient has a vegetation involving the coronary cusp and mild aortic regurgitation Sepsis with septic shock secondary to Pseudomonas aeruginosa septicemia, currently on IV cefepime. Clinically and hemodynamically stable. ID is on the case. Exact source of the pseudomonal septicemia is not clear at this point. The most recent blood culture that was obtained on 01/22/2025 is still showing positive Pseudomonas aeruginosa and initial blood culture was positive on 01/19/2025 and the patient remains on IV cefepime. Most recent blood cultures from01/24/2025 was negative. The patient remains on IV cefepime. IV is on the case. Hypotension with dizziness and near syncope secondary to above, recovered Febrile illness secondary to above, recovered and the patient is currently afebrile Left hand fifth digit ischemia, likely arterial, rule out septic embolism versus microvascular embolism and the patient is to be seen by vascular surgery. Clinically improving and vascular surgery remains on the case. Anemia with stool for occult blood positive Acute low back pain, MRI of the lumbar spine was completed and the patient has no evidence of discitis. 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 Atrial fibrillation anticoagulated with Eliquis, Hypertension, history of Hyperlipidemia Coronary artery disease status post stent placement Carotid artery disease status post repair Plan: Persistent bacteremia with Pseudomonas aeruginosa, awaiting follow-up blood cultures from 01/24/2025 which seems to be essentially negative for now. The patient has pseudomonal septicemia. KATHY was noted Currently cefepime Infectious diseases on the case Briefly required norepinephrine, currently hemodynamically stable and off pressors, remains hemodynamically stable. Currently stable and on normal saline at 50 cc an hour continue anticoagulation with Eliquis, will discuss with infectious disease and cardiology the need for ongoing anticoagulation in the setting of endocarditis. Vascular surgery consultation regarding the ischemic left fifth digit. Titrate the FiO2 as needed, currently on room air oxygen We will continue to follow and make further recommendations based on his cli nical status
--- NOTE | 2025-01-26 15:23 | P.PN ---
Subjective Progress Note Date: 01/26/25 Principal diagnosis: Reason for follow-up is fever/Pseudomonas bacteremia Patient is a 84-year-old male with a past medical history significant for Atrial Fibrillation, Coronary Artery Disease (CAD), Diabetes Mellitus, Hyperlipidemia, Hypertension, Syncope, Thyroid Disorder presenting to the hospital for evaluation of weakness and back pain did have a fever prompting this consultation. On today's evaluation that is 01/26/2025, the patient continues to be afebrile, the patient is on room air and breathing comfortably, the Pt denies having any chest pain or cough, the patient denies having any abdominal pain no vomiting or any diarrhea has been complaining of pain mostly to his genitalia complaining about the Marcelo catheter. Patient white count is 5.7, creatinine 0.64 KATHY did shows aortic valve endocarditis but no perivalvular abscess Objective - Vital Signs Vital signs: Vital Signs Temp 98.1 F 01/26/25 08:00 Pulse 72 01/26/25 08:00 Resp 20 01/26/25 08:00 BP 176/64 01/26/25 08:00 Pulse Ox 97 01/26/25 08:00 FiO2 Intake & Output 01/25/25 01/26/25 01/26/25 18:59 06:59 18:59 Intake Total 150 240 340 Output Total 700 1200 800 Balance -550 960 460 Weight 117.5 kg 17.5 kg Intake: IV 50 Intake, IV Titration 100 Amount Magnesium Sulfate-D5w Pmx 100 1 gm In Dextrose/Water 1 100ml.bag @ 100 mls/hr IVPB ONCE ONE Rx#: [id number] Oral 240 340 Output: Urine 700 1200 800 Other: Voiding Method Indwelling Catheter Indwelling Catheter Indwelling Catheter - Exam GENERAL DESCRIPTION: An elderly male lying in bed in no distress RESPIRATORY SYSTEM: Unlabored breathing , decreased breath sounds at bases HEART: S1 S2 regular rate and rhythm , ABDOMEN: Soft , no tenderness EXTREMITIES: No edema feet - Labs CBC & Chem 7: 01/26/25 05:52 01/26/25 05:52 Labs: Abnormal Lab Results - Last 24 Hours (Table) 01/25/25 01/25/25 01/25/25 Range/Units 11:42 16:53 19:57 RBC (4.40-5.60) 10*6/uL Hgb (13.0-17.0) g/dL Hct (39.6-50.0) % Lymphocytes # (0.90-5.00) 10*3/uL Sodium (137-145) mmol/L Carbon Dioxide (22-30) mmol/L Creatinine (0.66-1.25) mg/dL Glucose (74-99) mg/dL POC Glucose (mg/dL) 129 H 155 H 117 H (70-110) mg/dL Calcium (8.4-10.2) mg/dL 01/26/25 01/26/25 01/26/25 Range/Units 05:50 05:52 05:52 RBC 3.41 L (4.40-5.60) 10*6/uL Hgb 9.8 L (13.0-17.0) g/dL Hct 29.2 L (39.6-50.0) % Lymphocytes # 0.84 L (0.90-5.00) 10*3/uL Sodium 134 L (137-145) mmol/L Carbon Dioxide 19 L (22-30) mmol/L Creatinine 0.64 L (0.66-1.25) mg/dL Glucose 116 H (74-99) mg/dL POC Glucose (mg/dL) 120 H (70-110) mg/dL Calcium 8.0 L (8.4-10.2) mg/dL 01/26/25 Range/Units 11:30 RBC (4.40-5.60) 10*6/uL Hgb (13.0-17.0) g/dL Hct (39.6-50.0) % Lymphocytes # (0.90-5.00) 10*3/uL Sodium (137-145) mmol/L Carbon Dioxide (22-30) mmol/L Creatinine (0.66-1.25) mg/dL Glucose (74-99) mg/dL POC Glucose (mg/dL) 140 H (70-110) mg/dL Calcium (8.4-10.2) mg/dL Microbiology - Last 24 Hours (Table) 01/24/25 06:49 Blood Culture - Preliminary Blood 01/22/25 06:30 Blood Culture Gram Stain - Final Blood Blood Culture - Final Pseudomonas aeruginosa Molecular ID Assessment and Plan (1) Back pain Current Visit: Yes Status: Acute Code(s): M54.9 - DORSALGIA, UNSPECIFIED SNOMED Code(s): 339620740 (2) SIRS (systemic inflammatory response syndrome) Current Visit: No Status: Acute Code(s): R65.10 - SIRS OF NON-INFECTIOUS ORIGIN W/O ACUTE ORGAN DYSFUNCTION SNOMED Code(s): 454995727 (3) Bacteremia due to Pseudomonas Current Visit: No Status: Acute Code(s): R78.81 - BACTEREMIA; B96.5 - PSEUDOMONAS (MALLEI) [facility] Code(s): 0042491825 Plan: 1patient presented to hospital with weakness lightheadedness and near syncopal episode has also been complaining of lower back pain with no history of any trauma no start running a fever did have mild elevated white count concerning for possible lumbosacral spinal disease responsible for this fever 2-patient blood culture positive for Pseudomonas with blood culture on 01/22/2025 also positive MRI of the lumbosacral spine was negative for any discitis or osteomyelitis echocardiogram did not mention any vegetation 3blood culture has been repeated 01/24/2022 and so far negative, KATHY has been positive for aortic valve small vegetation no perivalvular abscess has responded to the cefepime will need a PICC line for outpatient IV cefepime has been complaining of mostly pain to the periurethral area coagulated his Marcelo catheter may be considered for discontinuation Dictation was produced using [employer] dictation software. please excuse any gramm atical, word or spelling errors. Time with Patient: Less than 30
[2025-01-26 16:42] LABS: Glucose,Whole Blood 144 mg/dL (70-110)
[2025-01-26 20:03] LABS: Bilirubin,Urine Negative (Negative); Blood,Urine Negative (Negative); Color,Urine Colorless; Glucose,Urine (UA) Negative (Negative); Ketones,Urine Negative (Negative); Leukocyte Esterase,Urine Negative (Negative); Nitrite,Urine Negative (Negative); PH, Urine 6.0 (5.0-8.0); Protein,Urine Negative (Negative); Specific Gravity,Urine 1.004 (1.001-1.035); Urobilinogen,Urine <2.0 mg/dL (<2.0)
[2025-01-26 20:16] LABS: Glucose,Whole Blood 159 mg/dL (70-110)
[2025-01-26] MEDS: FUROSEMIDE 10 MG/ML 4 ML VIAL IV STA (21:22)
[2025-01-27 05:52] LABS: Glucose,Whole Blood 125 mg/dL (70-110)
[2025-01-27 07:40] LABS: Basophils # (A) 0.03 10*3/uL (0.00-0.10); Basophils % (A) 0.6 %; Eosinophils # (A) 0.18 10*3/uL (0.04-0.35); Eosinophils % (A) 3.4 %; HCT 29.2 % (39.6-50.0); HGB 9.7 g/dL (13.0-17.0); Lymphocytes # (A) 0.97 10*3/uL (0.90-5.00); Lymphocytes % (A) 18.3 %; MCH 28.6 pg (27.0-32.0); MCHC 33.2 g/dL (32.0-37.0); MCV 86.1 fL (80.0-97.0); Monocytes # (A) 0.40 10*3/uL (0.20-1.00); Monocytes % (A) 7.6 %; Neutrophils # (A) 3.66 10*3/uL (1.80-7.70); Neutrophils % (A) 69.2 %; Platelet Count 204 10*3/uL (140-440); RBC 3.39 10*6/uL (4.40-5.60); RDW 14.3 % (11.5-14.5); WBC 5.29 10*3/uL (4.50-10.00)
[2025-01-27 08:00] LABS: African American GFR (CKD) >90 (>60 ml/min/1.73 sqM); Anion Gap 8 mmol/L; Blood Urea Nitrogen 13 mg/dL (9-20); Calcium 7.9 mg/dL (8.4-10.2); Carbon Dioxide 22 mmol/L (22-30); Chloride 104 mmol/L (98-107); Glucose 116 mg/dL (74-99); Non-African American GFR(CKD) >90 (>60 ml/min/1.73 sqM); Potassium 3.7 mmol/L (3.5-5.1); Sodium 134 mmol/L (137-145)
--- NOTE | 2025-01-27 10:39 | P.PN ---
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 Associated close nonspecific dizziness but no headache. No specific limb weakness or numbness or blurred vision or double vision He has some vision problems and he follow-up with Dr. partida He denies chest pain or dyspnea. No other specific GI/ symptoms He has mild headache about 2-3/10 on the right side He states that recently he has been treated for UTI however he denies any urinary symptoms and urinalysis is negative. Vital stable afebrile. Is mildly tachycardic with heart rate 102. CBC BMP LFT and liver enzymes were unremarkable. Troponin is negative less than 0.012. Urinalysis normal. Chest x-ray showing no acute cardiopulmonary process EKG showing sinus tachycardia congestion with no significant ST-T changes but there is multiple P VCs. He was started on aspirin 325 mg admitted with cardiology team consult Patient currently complains from spasm in his lower back that comes severely for a few seconds before letting go 01/19 Patient awake alert not in distress today. He feels better he says he can get up today compared to yesterday but he still complaining from back pain His back pain looks better than yesterday like 10/19 however once he try to move his leg even with little bend of the knee he developed severe pain in the lower back. No chest pain dyspnea or abdominal pain or tenderness.. He spiked a fever 104 overnight. Labs from yesterday showing WBC 10.2 hemoglobin 12.7. INR 1.1. Potassium is 4.4 creatinine 1.07. Patient still getting normal saline 75 mL/h. He is on Dilaudid for pain control also he is on aspirin Eliquis and Pepcid 01/20 Patient clinically the same, awake alert complaining from severe low back pain. Dilaudid 0.5 mg was not enough we will increase the dose to 1 mg. No chest pain no headache or dizziness no other new complaints. He is currently on antibiotic IV vancomycin and cefepime. Also infectious disease team following closely. Blood culture is coming back positive pending sensitivity and further evaluation. Because of spine infection is suspected. Patient may require procedure we going to hold Eliquis starting tonight. He got dose this morning. We are going to start bridging heparin tonight. Patient received boluses of normal saline, hypotension improved, creatinine function is stable. MRI of the spine with and without contrast ordered by infectious disease team. Is going to be done tonight however because of his fever it was held this afternoon. We are treating his fever aggressively with Tylenol, ibuprofen ordered and cooling blanket. Blood pressure is also monitored closely and discussed with the staff to give boluses if required. 01/21 Patient was hypotensive overnight and he was transferred to the ICU. They gave him only a small bolus of normal saline 500 cc which apparently was not enough. With getting more fluid his blood pressure improved. He did not really need any pressors. Eventually patient was transferred back to the general medical floor today. His back pain controlled with Dilaudid MRI showed no epidural abscess but there is severe spinal stenosis at L3-L4. Neurology service recommended orthopedic follow-up as an outpatient not candidate for any surgical intervention because septic. Patient currently covered with cefepime, 2 blood culture samples came back positive for Pseudomonas. Cardiology team on the case echocardiogram requested. Also cardio recommend Holter monitor as an outpatient. 01/22/2025 Patient is seen in follow-up currently sitting up in the chair being followed by multiple consultations maintained on antibiotics with infectious disease following as patient's cultures were positive for Pseudomonas. Patient continues with significant weakness although per case management, family reports will be going home. Patient has extremely weak and would benefit from ECF. Patient also having some left pinky pain and discoloration with concerns of possible ischemia to this left pinky and vascular surgery has been consulted recommending a Doppler of the left extremity. Patient is afebrile and reports to not feeling well and generally weak. Recommend PT/OT therapy evaluation and reevaluation with discussion of possible ECF on discharge. Patient with significant comorbidities and continued ongoing difficulties, patient would benefit from ECF for continued strength and mobility. 01/23/2025 Patient is seen in follow-up today being followed by multiple consultations maintained on cefepime at this time with infectious disease following as patient had positive blood cultures that appear persistent and continued to show Pseudomonas aeruginosa. Preliminary repeat cultures remain positive as well and cardiology will be reconsulted for request of KATHY per ID recommendations which is pending at this time. Patient did have left fifth finger significant discoloration and pain and was evaluated by vascular surgery showing clinical improvement and discoloration is improved. Patient reports this had been hurting prior to admission from previous falls but he did not recall hurting anything with the fall. Vascular surgery not recommending any intervention at this time and patient is continued on Eliquis. Patient is currently afebrile with no reports of chest pain or shortness of breath. Patient continues to be weak and with prolonged hospitalization would recommend continued PT/OT therapy. Patient and family are adamant they are returning home on discharge. Will discuss with case management regarding discharge planning once patient is stabilized. Currently awaiting cardiology reevaluation for possible KATHY 01/24/2025 Patient is evaluated in follow-up on the medical floor. He is currently low and oriented x 2 and appears mildly confused today. He is currently pending cardiac evaluation for possible KATHY as he continues to have persistent Pseudomonas bacteremia with concern for infective endocarditis. Otherwise he has no acute complaints at this time. He reports continued left finger discoloration and pain. White blood cell count remains within normal limits. His sodium level today is 135, BUN of 13 creatinine of 0.69 magnesium level of 1.5. 01/25/2025 Patient is evaluated today in follow-up on the medical floor. He is awake alert and oriented x 3. He underwent transechocardiogram and per cardiology reports there is a high concern for vegetation. Awaiting formal KATHY report. Repeat blood culture has been taken and currently pending. He has 3 positive Pseudomonas cultures. His labs today reveal a white blood cell count of 5.92, hemoglobin 9.5, sodium 134, BUN of 10 creatinine 0.61 calcium 7.7 magnesium 1.6. He remains on IV cefepime per infectious disease. 01/26/2025 Patient is seen in follow-up today reporting some penile discomfort and does continue with chronic indwelling Marcelo catheter. Patient is currently maintained on IV cefepime with infectious disease following for bacteremia with Pseudomonas. Repeat blood culture from 01/24/2025 is preliminary negative thus far for 24 hours and needs to be a full 72 hours of being negative for patient to receive a PICC line. Patient with prolonged hospitalization and significant weakness was evaluated by physical therapy recommending rehab and patient and family are now agreeable. Patient did have a low-dose hydration going which will be discontinued with concerns of penile swelling we will give a dose of Lasix and also consult appreciate input and recommendations from neurology. Patient does have chronic indwelling Marcelo catheter. Patient also with left finger fifth digit discomfort was evaluated by vascular surgery with concerns of possible septic emboli versus microvascular emboli although is improving. No surgical interventions planned at this time and will be monitored closely. Review of systems: Constitutional: No reports of fatigue, no fever, or chills Cardiovascular: No reports of chest pain or palpitations Respiratory: No reports of shortness of breath or cough GI: No reports of nausea, vomiting, or diarrhea, reports not eating much : reports of dysuria and penile swelling with chronic indwelling Marcelo catheter Neurovascular: reports of generalized weakness with difficulty in ambulating, left pinky finger pain and discoloration appears to be improving All medications have been reviewed Physical exam: GENERAL: The patient is alert and oriented x 2, baseline not in any acute distress. Well developed, elderly appearing, chronically ill appearing. Obese HEENT: Pupils are round and equally reacting to light. EOMI. No scleral icterus. No conjunctival pallor. Normocephalic, atraumatic. No pharyngeal erythema. No thyromegaly. CARDIOVASCULAR: S1 and S2 muffled PULMONARY: Diminished breath sounds bilaterally otherwise chest is clear to auscultation, no wheezing , no crackles. ABDOMEN: Soft, obese, nontender, nondistended, normoactive bowel sounds. No palpable organomegaly. MUSCULOSKELETAL: No joint swelling or deformity. EXTREMITIES: No cyanosis, clubbing, or pedal edema. Left finger fifth digit mildly discolored showing improvements in cyanosis, less cool to touch at the tip, cap refill at 3 seconds, extremely painful to the touch NEUROLOGICAL: Gross neurological examination did not reveal any focal deficits. Diffusely weak SKIN: No rashes. no petechiae. 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 Recurrent syncope and falling, last few seconds with no seizure activity Fever of unknown origin, likely secondary to infective endocarditis Left fifth digit finger discoloration, cyanotic, cold to the touch with concerns of septic embolism versus microvascular emboli versus possible injury from the fall, improving and no plans of surgical intervention at this time Acute severe lower back pain, secondary to severe lumbar spinal stenosis seen on the MRI, no evidence of osteomyelitis or discitis Generalized weakness and gait dysfunction Hypomagnesemia, improved after replacement Dehydration secondary to poor oral intake A-fib with mild RVR, maintained on Eliquis, currently rate controlled Hypertension Hyperlipidemia Coronary disease status post stent Obesity with a BMI of 36.3 AAA GI prophylaxis DVT prophylaxis Full code Plan: Continue with antibiotic cefepime. Follow-up blood culture results remain positive for Pseudomonas and repeat blood cultures pending, infectious disease following and will continue current regimen. Patient is s/p KATHY with concern for vegetation. Once his blood cultures have been negative for 72 hours patient will undergo PICC line placement with plans for 6-week course of IV cefepime on discharge per infectious disease Continue gentle hydration with improvement in blood pressure Patient is maintained on Eliquis and aspirin. left fifth digit discoloration with cyanosis with concerns of septic embolism although improving and has positive pulses, likely injury with bruising secondary to frequent falls prior to hospitalization, vascular surgery has evaluated with no surgical interventions planned recommending outpatient follow- up Follow-up on repeat labs and replace electrolytes per protocol Patient was reevaluated by PT/OT therapy recommending rehab and patient and family are now agreeable. Case management following placing referrals although will need to await 72 hours of clearance of bacteremia to receive a PICC line as patient will require outpatient IV antibiotics per ID recommendations. Patient did have some penile swelling and continues with chronic indwelling Marcelo catheter will discontinue IV fluids and give a dose of Lasix and also consult urology and appreciate input and recommendations. Recommend deflating the balloon and checking the positioning of the Marcelo catheter with Marcelo care Patient is high risk for readmissions given significant comorbidities The impression and plan of care has been dictated by Vicky Alvarado, Nurse Practitioner as directed. This is the verbal consent since Dr. Jake MD I have performed a history and examination and MDM of this patient, discussed the same with the dictator, and agree with the dictator's assessment and plan as written ,documented as a scribe. Based on total visit time, I have performed more than 50% of the visit. Objective - Vital Signs Vital signs: Vital Signs Temp 98.9 F 01/26/25 03:11 Pulse 69 01/26/25 03:11 Resp 22 01/26/25 03:11 BP 162/75 01/26/25 03:11 Pulse Ox 94 L 01/26/25 03:11 FiO2 Intake & Output 01/25/25 01/26/25 01/26/25 18:59 06:59 18:59 Intake Total 150 240 340 Output Total 700 1200 Balance -550 -960 340 Weight 117.5 kg 17.5 kg Intake: IV 50 Intake, IV Titration 100 Amount Magnesium Sulfate-D5w Pmx 100 1 gm In Dextrose/Water 1 100ml.bag @ 100 mls/hr IVPB ONCE ONE Rx#: [id number] Oral 240 340 Output: Urine 700 1200 Other: Voiding Method Indwelling Catheter Indwelling Catheter - Labs CBC & Chem 7: 01/27/25 05:59 01/27/25 05:59 Labs: Abnormal Lab Results - Last 24 Hours (Table) 01/25/25 01/25/25 01/25/25 Range/Units 11:42 16:53 19:57 RBC (4.40-5.60) 10*6/uL Hgb (13.0-17.0) g/dL Hct (39.6-50.0) % Lymphocytes # (0.90-5.00) 10*3/uL Sodium (137-145) mmol/L Carbon Dioxide (22-30) mmol/L Creatinine (0.66-1.25) mg/dL Glucose (74-99) mg/dL POC Glucose (mg/dL) 129 H 155 H 117 H (70-110) mg/dL Calcium (8.4-10.2) mg/dL 01/26/25 01/26/25 01/26/25 Range/Units 05:50 05:52 05:52 RBC 3.41 L (4.40-5.60) 10*6/uL Hgb 9.8 L (13.0-17.0) g/dL Hct 29.2 L (39.6-50.0) % Lymphocytes # 0.84 L (0.90-5.00) 10*3/uL Sodium 134 L (137-145) mmol/L Carbon Dioxide 19 L (22-30) mmol/L Creatinine 0.64 L (0.66-1.25) mg/dL Glucose 116 H (74-99) mg/dL POC Glucose (mg/dL) 120 H (70-110) mg/dL Calcium 8.0 L (8.4-10.2) mg/dL Microbiology - Last 24 Hours (Table) 01/24/25 06:49 Blood Culture - Preliminary Blood 01/22/25 06:30 Blood Culture Gram Stain - Final Blood Blood Culture - Final Pseudomonas aeruginosa Molecular ID
[2025-01-27 11:23] LABS: Glucose,Whole Blood 144 mg/dL (70-110)
--- NOTE | 2025-01-27 13:06 | P.PN ---
Subjective HISTORY OF PRESENT ILLNESS: This is an 84-year-old gentleman who follows with Dr. Morales with a past medical history of CAD status post PCI at [facility] in 2003, carotid disease status post carotid stent in [facility] in 2021, hypertension, hyperlipidemia, persistent atrial fibrillation and type 2 diabetes. Presented to the hospital because of recurrent syncope passing out over the last 3 to 4 days. Also complained of dizziness, lightheadedness and generalized weakness. Recently treated for UTI. There was a concern for sepsis during this admission. Patient remains in atrial fibrillation with controlled ventricular response. Echocardiogram with Doppler study showed normal LV systolic function. 01/24/2025 Dr. Duong is requesting KATHY because patient has positive blood cultures for Pseudomonas aeruginosa. Patient will be scheduled tomorrow with Dr. Reed. 01/25/2025 Patient seen and examined. He underwent KATHY which was concerning for vegetation. Formal report is pending at this time. Patient has been afebrile, blood pressure 152/63, heart rate 60, pulse ox 95% on room air. 01/26/2025 Patient seen and examined. KATHY revealed vegetation noted on the right coronary cusp of the aortic valve. Patient has been afebrile, heart rate in the 60s to 80s, blood pressure 162/75, pulse ox 94% on room air. WBC 5.7, hemoglobin 9.8, creatinine 0.64, potassium 3.8. 01/27/2025 Patient examined this morning at the bedside. Patient is currently sitting up in the chair. Patient denies chest pain or pressure. He denies shortness of breath. He does report having some dizziness this morning. He remains on antibiotics per infectious disease. Vital signs are stable. PHYSICAL EXAM: VITAL SIGNS: Reviewed. GENERAL: Well-developed in no acute distress. NECK: Supple. No JVD or thyromegaly LUNGS: Respirations even and unlabored. Lungs essentially clear to auscultation bilaterally. HEART: Regular rate and rhythm. S1 and S2 heard. Systolic murmur. EXTREMITIES: Normal range of motion. No clubbing or cyanosis. Peripheral pulses intact. 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 Signing provider agrees with the documented findings, assessment, and plan of care documented by [employer] as a scribe. Objective - Vital Signs Vital signs: Vital Signs Temp 98.0 F 01/27/25 12:37 Pulse 64 01/27/25 12:37 Resp 18 01/27/25 12:37 BP 108/56 01/27/25 12:37 Pulse Ox 98 01/27/25 12:37 FiO2 Intake & Output 01/26/25 01/27/25 01/27/25 18:59 06:59 18:59 Intake Total 562 240 Output Total 2275 1400 400 Balance -1713 -1400 -160 Weight 109.5 kg Intake: Oral 562 240 Output: Urine 2275 1400 400 Other: Voiding Method Indwelling Catheter Indwelling Catheter - Labs CBC & Chem 7: 01/27/25 05:59 01/27/25 05:59 Labs: Abnormal Lab Results - Last 24 Hours (Table) 01/26/25 01/26/25 01/27/25 Range/Units 16:40 20:15 05:49 RBC (4.40-5.60) 10*6/uL Hgb (13.0-17.0) g/dL Hct (39.6-50.0) % Immature Gran # (0.00-0.04) 10*3/uL Sodium (137-145) mmol/L Creatinine (0.66-1.25) mg/dL Glucose (74-99) mg/dL POC Glucose (mg/dL) 144 H 159 H 125 H (70-110) mg/dL Calcium (8.4-10.2) mg/dL 01/27/25 01/27/25 01/27/25 Range/Units 05:59 05:59 11:21 RBC 3.39 L (4.40-5.60) 10*6/uL Hgb 9.7 L (13.0-17.0) g/dL Hct 29.2 L (39.6-50.0) % Immature Gran # 0.05 H (0.00-0.04) 10*3/uL Sodium 134 L (137-145) mmol/L Creatinine 0.60 L (0.66-1.25) mg/dL Glucose 116 H (74-99) mg/dL POC Glucose (mg/dL) 144 H (70-110) mg/dL Calcium 7.9 L (8.4-10.2) mg/dL Microbiology - Last 24 Hours (Table) 01/24/25 06:49 Blood Culture - Preliminary Blood
--- NOTE | 2025-01-27 13:23 | P.PN ---
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 Associated close nonspecific dizziness but no headache. No specific limb weakness or numbness or blurred vision or double vision He has some vision problems and he follow-up with Dr. partida He denies chest pain or dyspnea. No other specific GI/ symptoms He has mild headache about 2-3/10 on the right side He states that recently he has been treated for UTI however he denies any urinary symptoms and urinalysis is negative. Vital stable afebrile. Is mildly tachycardic with heart rate 102. CBC BMP LFT and liver enzymes were unremarkable. Troponin is negative less than 0.012. Urinalysis normal. Chest x-ray showing no acute cardiopulmonary process EKG showing sinus tachycardia congestion with no significant ST-T changes but there is multiple P VCs. He was started on aspirin 325 mg admitted with cardiology team consult Patient currently complains from spasm in his lower back that comes severely for a few seconds before letting go 01/19 Patient awake alert not in distress today. He feels better he says he can get up today compared to yesterday but he still complaining from back pain His back pain looks better than yesterday like 10/19 however once he try to move his leg even with little bend of the knee he developed severe pain in the lower back. No chest pain dyspnea or abdominal pain or tenderness.. He spiked a fever 104 overnight. Labs from yesterday showing WBC 10.2 hemoglobin 12.7. INR 1.1. Potassium is 4.4 creatinine 1.07. Patient still getting normal saline 75 mL/h. He is on Dilaudid for pain control also he is on aspirin Eliquis and Pepcid 01/20 Patient clinically the same, awake alert complaining from severe low back pain. Dilaudid 0.5 mg was not enough we will increase the dose to 1 mg. No chest pain no headache or dizziness no other new complaints. He is currently on antibiotic IV vancomycin and cefepime. Also infectious disease team following closely. Blood culture is coming back positive pending sensitivity and further evaluation. Because of spine infection is suspected. Patient may require procedure we going to hold Eliquis starting tonight. He got dose this morning. We are going to start bridging heparin tonight. Patient received boluses of normal saline, hypotension improved, creatinine function is stable. MRI of the spine with and without contrast ordered by infectious disease team. Is going to be done tonight however because of his fever it was held this afternoon. We are treating his fever aggressively with Tylenol, ibuprofen ordered and cooling blanket. Blood pressure is also monitored closely and discussed with the staff to give boluses if required. 01/21 Patient was hypotensive overnight and he was transferred to the ICU. They gave him only a small bolus of normal saline 500 cc which apparently was not enough. With getting more fluid his blood pressure improved. He did not really need any pressors. Eventually patient was transferred back to the general medical floor today. His back pain controlled with Dilaudid MRI showed no epidural abscess but there is severe spinal stenosis at L3-L4. Neurology service recommended orthopedic follow-up as an outpatient not candidate for any surgical intervention because septic. Patient currently covered with cefepime, 2 blood culture samples came back positive for Pseudomonas. Cardiology team on the case echocardiogram requested. Also cardio recommend Holter monitor as an outpatient. 01/22/2025 Patient is seen in follow-up currently sitting up in the chair being followed by multiple consultations maintained on antibiotics with infectious disease following as patient's cultures were positive for Pseudomonas. Patient continues with significant weakness although per case management, family reports will be going home. Patient has extremely weak and would benefit from ECF. Patient also having some left pinky pain and discoloration with concerns of possible ischemia to this left pinky and vascular surgery has been consulted recommending a Doppler of the left extremity. Patient is afebrile and reports to not feeling well and generally weak. Recommend PT/OT therapy evaluation and reevaluation with discussion of possible ECF on discharge. Patient with significant comorbidities and continued ongoing difficulties, patient would benefit from ECF for continued strength and mobility. 01/23/2025 Patient is seen in follow-up today being followed by multiple consultations maintained on cefepime at this time with infectious disease following as patient had positive blood cultures that appear persistent and continued to show Pseudomonas aeruginosa. Preliminary repeat cultures remain positive as well and cardiology will be reconsulted for request of KATHY per ID recommendations which is pending at this time. Patient did have left fifth finger significant discoloration and pain and was evaluated by vascular surgery showing clinical improvement and discoloration is improved. Patient reports this had been hurting prior to admission from previous falls but he did not recall hurting anything with the fall. Vascular surgery not recommending any intervention at this time and patient is continued on Eliquis. Patient is currently afebrile with no reports of chest pain or shortness of breath. Patient continues to be weak and with prolonged hospitalization would recommend continued PT/OT therapy. Patient and family are adamant they are returning home on discharge. Will discuss with case management regarding discharge planning once patient is stabilized. Currently awaiting cardiology reevaluation for possible KATHY 01/24/2025 Patient is evaluated in follow-up on the medical floor. He is currently low and oriented x 2 and appears mildly confused today. He is currently pending cardiac evaluation for possible KATHY as he continues to have persistent Pseudomonas bacteremia with concern for infective endocarditis. Otherwise he has no acute complaints at this time. He reports continued left finger discoloration and pain. White blood cell count remains within normal limits. His sodium level today is 135, BUN of 13 creatinine of 0.69 magnesium level of 1.5. 01/25/2025 Patient is evaluated today in follow-up on the medical floor. He is awake alert and oriented x 3. He underwent transechocardiogram and per cardiology reports there is a high concern for vegetation. Awaiting formal KATHY report. Repeat blood culture has been taken and currently pending. He has 3 positive Pseudomonas cultures. His labs today reveal a white blood cell count of 5.92, hemoglobin 9.5, sodium 134, BUN of 10 creatinine 0.61 calcium 7.7 magnesium 1.6. He remains on IV cefepime per infectious disease. 01/26/2025 Patient is seen in follow-up today reporting some penile discomfort and does continue with chronic indwelling Marcelo catheter. Patient is currently maintained on IV cefepime with infectious disease following for bacteremia with Pseudomonas. Repeat blood culture from 01/24/2025 is preliminary negative thus far for 24 hours and needs to be a full 72 hours of being negative for patient to receive a PICC line. Patient with prolonged hospitalization and significant weakness was evaluated by physical therapy recommending rehab and patient and family are now agreeable. Patient did have a low-dose hydration going which will be discontinued with concerns of penile swelling we will give a dose of Lasix and also consult appreciate input and recommendations from neurology. Patient does have chronic indwelling Marcelo catheter. Patient also with left finger fifth digit discomfort was evaluated by vascular surgery with concerns of possible septic emboli versus microvascular emboli although is improving. No surgical interventions planned at this time and will be monitored closely. 01/27/2025 Patient is seen in follow-up today with no acute overnight issues noted. Patient continues to be pleasantly confused although this appears to be his baseline. Patient does continue with indwelling Marcelo catheter and did receive a dose of Lasix yesterday and denies any pain or swelling of the penis today. Urology consulted and pending at this time. Patient to continue with indwelling Marcelo catheter which is chronic. Patient also being followed by cardiology and infectious disease maintained on current regimen and will continue. Blood cultures thus far have been negative for 72 hours and will need to receive a PICC line and arrange for IV antibiotics in the outpatient setting. Patient continues to be significantly weak and will be going to ECF on discharge. Recommend getting up in the chair and sitting up more frequently and increased activity as tolerated. Patient does report left pinky pain but feels it is improving and he feels he did strike it when falling although he is unsure. Patient is a poor historian. Patient is currently afebrile with no reports of chest pain or shortness of breath. Patient reports tolerating diet with no nausea or vomiting noted. Review of systems: Constitutional: No reports of fatigue, no fever, or chills Cardiovascular: No reports of chest pain or palpitations Respiratory: No reports of shortness of breath or cough GI: No reports of nausea, vomiting, or diarrhea, reports not eating much : No further reports of dysuria or penile swelling with chronic indwelling Marcelo catheter Neurovascular: reports of generalized weakness with difficulty in ambulating, left pinky finger pain and discoloration appears to be improving All medications have been reviewed Physical exam: GENERAL: The patient is alert and oriented x 2, baseline state, not in any acute distress. Well developed, elderly appearing, chronically ill appearing. Obese HEENT: Pupils are round and equally reacting to light. EOMI. No scleral icterus. No conjunctival pallor. Normocephalic, atraumatic. No pharyngeal erythema. No thyromegaly. CARDIOVASCULAR: S1 and S2 muffled PULMONARY: Diminished breath sounds bilaterally otherwise chest is clear to auscultation, no wheezing , no crackles. ABDOMEN: Soft, obese, nontender, nondistended, normoactive bowel sounds. No palpable organomegaly. MUSCULOSKELETAL: No joint swelling or deformity. EXTREMITIES: No cyanosis, clubbing, or pedal edema. Left finger fifth digit mildly discolored showing improvements in cyanosis, warm to the touch at the tip, cap refill at 3 seconds, extremely painful to the touch NEUROLOGICAL: Gross neurological examination did not reveal any focal deficits. Diffusely weak SKIN: No rashes. no petechiae. 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 Recurrent syncope and falling, last few seconds with no seizure activity Fever of unknown origin, likely secondary to infective endocarditis Left fifth digit finger discoloration, cyanotic, cold to the touch with concerns of septic embolism versus microvascular emboli versus possible injury from the fall, improving and no plans of surgical intervention at this time Acute severe lower back pain, secondary to severe lumbar spinal stenosis seen on the MRI, no evidence of osteomyelitis or discitis Generalized weakness and gait dysfunction Hypomagnesemia, improved after replacement Dehydration secondary to poor oral intake A-fib with mild RVR, maintained on Eliquis, currently rate controlled Hypertension Hyperlipidemia Coronary disease status post stent Obesity with a BMI of 36.3 AAA GI prophylaxis DVT prophylaxis Full code Plan: Continue with antibiotic in the form of cefepime. Follow-up blood culture including repeats have been negative for 72 hours and is status post KATHY with concerns of infective endocarditis on the aortic valve. Patient will require a PICC line and outpatient IV antibiotics. Infectious disease following and will plan for outpatient IV antibiotics and patient will be going to ECF as patient is significantly weak and was evaluated by physical therapy recommending rehab. Patient and family are now agreeable. left fifth digit discoloration with cyanosis with concerns of septic embolism although improving and has positive pulses, likely injury with bruising secondary to frequent falls prior to hospitalization, vascular surgery has evaluated with no surgical interventions planned recommending outpatient follow- up Follow-up on repeat labs and replace electrolytes per protocol Patient did have some penile swelling yesterday and continues with chronic indwelling Marcelo catheter. Patient did receive a dose of Lasix and denies any further issues with swelling. Urology was consulted and pending at this time Patient is high risk for readmissions given significant comorbidities Patient will likely not receive his PICC line until Wednesday and will follow-up with case management regarding discharge planning to [facility]. Patient will also require insurance authorization. The impression and plan of care has been dictated by Vicky Alvarado, Nurse Practitioner as directed. This is the verbal consent since Dr. Osiris MD I have performed a history and examination and MDM of this patient, discussed the same with the dictator, and agree with the dictator's assessment and plan as written ,documented as a scribe. Based on total visit time, I have performed more than 50% of the visit. Objective - Vital Signs Vital signs: Vital Signs Temp 97.7 F 01/27/25 08:21 Pulse 76 01/27/25 08:21 Resp 16 01/27/25 08:21 BP 125/63 01/27/25 08:21 Pulse Ox 96 01/27/25 08:21 FiO2 Intake & Output 01/26/25 01/27/25 01/27/25 18:59 06:59 18:59 Intake Total 562 240 Output Total 2275 1400 Balance -1713 -1400 240 Weight 109.5 kg Intake: Oral 562 240 Output: Urine 2275 1400 Other: Voiding Method Indwelling Catheter Indwelling Catheter - Labs CBC & Chem 7: 01/27/25 05:59 01/27/25 05:59 Labs: Abnormal Lab Results - Last 24 Hours (Table) 01/26/25 01/26/25 01/26/25 Range/Units 11:30 16:40 20:15 RBC (4.40-5.60) 10*6/uL Hgb (13.0-17.0) g/dL Hct (39.6-50.0) % Immature Gran # (0.00-0.04) 10*3/uL Sodium (137-145) mmol/L Creatinine (0.66-1.25) mg/dL Glucose (74-99) mg/dL POC Glucose (mg/dL) 140 H 144 H 159 H (70-110) mg/dL Calcium (8.4-10.2) mg/dL 01/27/25 01/27/25 01/27/25 Range/Units 05:49 05:59 05:59 RBC 3.39 L (4.40-5.60) 10*6/uL Hgb 9.7 L (13.0-17.0) g/dL Hct 29.2 L (39.6-50.0) % Immature Gran # 0.05 H (0.00-0.04) 10*3/uL Sodium 134 L (137-145) mmol/L Creatinine 0.60 L (0.66-1.25) mg/dL Glucose 116 H (74-99) mg/dL POC Glucose (mg/dL) 125 H (70-110) mg/dL Calcium 7.9 L (8.4-10.2) mg/dL Microbiology - Last 24 Hours (Table) 01/24/25 06:49 Blood Culture - Preliminary Blood
--- NOTE | 2025-01-27 15:22 | P.PN ---
Subjective Progress Note Date: 01/27/25 Principal diagnosis: Reason for follow-up is fever/Pseudomonas bacteremia Patient is a 84-year-old male with a past medical history significant for Atrial Fibrillation, Coronary Artery Disease (CAD), Diabetes Mellitus, Hyperlipidemia, Hypertension, Syncope, Thyroid Disorder presenting to the hospital for evaluation of weakness and back pain did have a fever prompting this consultation. On today's evaluation that is 01/27/2025, patient did have a temperature of 98 F this morning and denies having any chills, patient is on room air and breathing comfortably no chest pain or cough, the patient did not have any nausea vomiting abdominal pain or any diarrhea. Patient white count is 5.29, creatinine 0.60 blood culture repeat has been negative Objective - Vital Signs Vital signs: Vital Signs Temp 98.0 F 01/27/25 12:37 Pulse 64 01/27/25 12:37 Resp 18 01/27/25 12:37 BP 108/56 01/27/25 12:37 Pulse Ox 98 01/27/25 12:37 FiO2 Intake & Output 01/26/25 01/27/25 01/27/25 18:59 06:59 18:59 Intake Total 562 480 Output Total 2275 1400 400 Balance -1713 -1400 80 Weight 109.5 kg Intake: Oral 562 480 Output: Urine 2275 1400 400 Other: Voiding Method Indwelling Catheter Indwelling Catheter Indwelling Catheter - Exam GENERAL DESCRIPTION: An elderly male lying in bed in no distress RESPIRATORY SYSTEM: Unlabored breathing , decreased breath sounds at bases HEART: S1 S2 regular rate and rhythm , ABDOMEN: Soft , no tenderness EXTREMITIES: No edema feet - Labs CBC & Chem 7: 01/27/25 05:59 01/27/25 05:59 Labs: Abnormal Lab Results - Last 24 Hours (Table) 01/26/25 01/26/25 01/27/25 Range/Units 16:40 20:15 05:49 RBC (4.40-5.60) 10*6/uL Hgb (13.0-17.0) g/dL Hct (39.6-50.0) % Immature Gran # (0.00-0.04) 10*3/uL Sodium (137-145) mmol/L Creatinine (0.66-1.25) mg/dL Glucose (74-99) mg/dL POC Glucose (mg/dL) 144 H 159 H 125 H (70-110) mg/dL Calcium (8.4-10.2) mg/dL 01/27/25 01/27/25 01/27/25 Range/Units 05:59 05:59 11:21 RBC 3.39 L (4.40-5.60) 10*6/uL Hgb 9.7 L (13.0-17.0) g/dL Hct 29.2 L (39.6-50.0) % Immature Gran # 0.05 H (0.00-0.04) 10*3/uL Sodium 134 L (137-145) mmol/L Creatinine 0.60 L (0.66-1.25) mg/dL Glucose 116 H (74-99) mg/dL POC Glucose (mg/dL) 144 H (70-110) mg/dL Calcium 7.9 L (8.4-10.2) mg/dL Microbiology - Last 24 Hours (Table) 01/24/25 06:49 Blood Culture - Preliminary Blood Assessment and Plan (1) Back pain Current Visit: Yes Status: Acute Code(s): M54.9 - DORSALGIA, UNSPECIFIED SNOMED Code(s): 061359761 (2) SIRS (systemic inflammatory response syndrome) Current Visit: No Status: Acute Code(s): R65.10 - SIRS OF NON-INFECTIOUS ORIGIN W/O ACUTE ORGAN DYSFUNCTION SNOMED Code(s): 823200953 (3) Bacteremia due to Pseudomonas Current Visit: No Status: Acute Code(s): R78.81 - BACTEREMIA; B96.5 - PSEUDOMONAS (MALLEI) CAUSING DISEASES [facility] SNOMED Code(s): 7606427304 Plan: 1patient presented to hospital with weakness lightheadedness and near syncopal episode has also been complaining of lower back pain with no history of any trauma no start running a fever did have mild elevated white count concerning for possible lumbosacral spinal disease responsible for this fever 2-patient blood culture positive for Pseudomonas with blood culture on 01/22/2025 also positive MRI of the lumbosacral spine was negative for any discitis or osteomyelitis echocardiogram did not mention any vegetation 3blood culture has been repeated 01/24/2022 and so far negative, KATHY has been positive for aortic valve small vegetation no perivalvular abscess 4plan is for PICC line and a 6-week course of IV antibiotic for his endocarditis, currently on cefepime question answered Dictation was produced using [employer] dictation software. please excuse any grammatical, word or spelling errors. Time with Patient: Less than 30
[2025-01-27 16:23] LABS: Glucose,Whole Blood 128 mg/dL (70-110)
--- NOTE | 2025-01-27 18:11 | P.PN ---
Subjective Progress Note Date: 01/27/25 This is an 84-year-old male patient with a known history of diabetes mellitus, hyperlipidemia, hypertension, carotid artery disease status post stent in 2021, coronary disease status post intervention in 2003, persistent atrial fibrillation. He presented here to the emergency room on January 18, 2025 with complaints of dizziness lightheadedness possible syncopal episode and generalized weakness. He had a rapid response team called on him on January 18 and again on January 19, 2025 for hypotension and high fevers. He was subsequently transferred here to the intensive care unit where he is seen in consultation today. Chest x-ray shows cardiomegaly and diffuse interstitial opacity mild fluid volume overload. EKG reveals atrial fibrillation with a controlled ventricular response. White count 7.1. Hemoglobin 9.0. Platelets 130. Sodium 135. Potassium 3.6. Bicarb 19. BUN 29. Creatinine 0.87. Glucose 102. Stool for occult blood is positive. Blood cultures showing gram-negative bacilli. He is currently on a heparin drip. Antibiotics in the form of cefepime. He was briefly on norepinephrine for blood pressure support. Current mean arterial pressures in the mid to upper 60s. He is resting in bed. Maintaining O2 saturations in the 90s to 100 on 2 L/min per nasal cannula. He is currently afebrile. The plan is for an MRI of the spine today looking for source of infection. On today's evaluation of 01/22/2025, the patient is being seen for a follow-up. The patient is being treated for pseudomonal septicemia and the patient remains on IV cefepime. Clinically stable. Hemodynamically stable. No fever. No chills. Mental status is appropriate and adequate at this point in time. However, the patient has developed pain in his left fifth finger and there is coldness and poor capillary refill and obvious ischemic changes. Based on that, recommended vascular consultation. Noted the patient has adequate radial and ulnar nerve pulses involving the left upper extremity. Patient is known to have chronic atrial fibrillation and he is maintained on anticoagulation with Eliqu is. He is known to have coronary artery disease, hypertension hyperlipidemia and diabetes mellitus. His undergone previous coronary stenting and is also known to have an abdominal aortic aneurysm. He is currently on IV cefepime. Rest of the medications are essentially unchanged. No surgical respiratory distress and the patient remains on room air oxygen with a pulse ox of 95%. Currently afebrile. On today's evaluation of 01/23/2025, the patient remains on IV cefepime for pseudomonal septicemia. Hemodynamically stable. Some occasional confusion yet for the most part, no focal neurological deficit and the patient is awake alert and communicating. Pulse ox 97% room air oxygen. ID is on the case. The patient was also seen by vascular surgery regarding the left finger cyanosis and pain which is attributed to microvascular ischemia. The patient had a 2D echocardiogram that was technically difficult. The patient has essentially normal LV function. The patient remains on anticoagulation regarding atrial fibrillation the patient remains on anticoagulation with Eliquis. Blood work from today shows a white cell count of 5.4 with a heme of 9.4 and platelet count of 146. BUN 16 with a creatinine of 0.7 and the patient's sodium level is at 136. No other significant events overnight. On today's evaluation of 01/24/2025, patient is being seen for a follow-up. The patient is awake and alert and the patient remains on room air oxygen. No hypotension. No fever or chills. Left fifth finger remains painful and swollen. Adequate pulses in all 4 extremities. Meanwhile, the repeat blood culture that was obtained on 01/22/2025 is still showing positive Pseudomonas aeruginosa. The white cells are 6.4 with a hemoglobin 10.3 and a platelet count of 166. BUN is 15 with a creatinine of 0.69 and sodium levels at 135. The patient remains on IV cefepime. Rest of her medications are essentially unchanged and the patient is on normal saline at rate of 50 cc an hour. The pat ient has bilateral knee replacement. The joints are essentially nonswollen and nonpainful at this point. Clinically, there has been also improvement in the pain and discoloration of the left pinky finger. ID is on the case. Exact source of pseudomonal infection is not clear. Consider endocarditis. Consider a KATHY. ID is on the case. On 01/25/2025, the patient is being seen for a follow-up. The patient remains on IV cefepime. Afebrile. Hemodynamically stable. Remains on room air oxygen. He has a septic embolism to his left fifth digit and the involved finger seems to be less painful and there is improved coloration. No nausea. No vomiting. No abdominal pain. No diarrhea. The patient had follow-up blood work that showed a white cell count of 5.9 with a hemoglobin 9.5 and a platelet count of 173. BUN is 10 with a creatinine 0.6. Sodium levels at 134. ID is on the case. As stated, the patient had persistent bacteremia with Pseudomonas aeruginosa and awaiting follow-up blood cultures that was repeated on 01/24/2025 which has been negative thus far. KATHY is in progress. On today's evaluation of 01/26/2025, the patient is being seen for a follow-up. The patient had persistent bacteremia with Pseudomonas aeruginosa. 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 Based on the findings, the patient has a small echodense lesion attached to the ventricular surface of the right coronary cusp and mild aortic regurgitation and appearance of the echodense lesion is consistent with vegetation. The patient remains afebrile and hemodynamically stable. Most recent blood culture obtained on 01/24/2025 was negative and the patient remains on IV cefepime and infectious disease and cardiology were both on the case. The white cell count is 5.7 with hemoglobin 9.8 and a platelet count of 250. BUN is 11 with a creatinine of 0.6. Sodium levels at 134. On 01/27/2025, the patient remains stable. Remains on room air oxygen. Septic changes in his left fifth finger are stable and the pain is subsided. Adequate pulses in all 4 extremities. The patient has infective endocarditis and pseudomonal septicemia. Most recent blood cultures from 01/24/2025 is negative and the patient is on IV cefepime. ID is on the case. No complaints otherwise for now. The white cell count is at 5.2 with a heme of 9.7 and a platelet count of 204. BUN is 13 with a creatinine 0.6. Sodium levels at 134. Oxygenation is stable and the patient remains on room air oxygen with a pulse ox of 96%. Remains on aspirin. Remains on anticoagulation with Eliquis. Remains on Imdur losartan and metoprolol. Remains on Lipitor. The patient is going to have PICC line with a total of 6 weeks of antibiotic treatment for endocarditis. No altered mentation. Objective - Vital Signs Vital signs: Vital Signs Temp 97.7 F 01/27/25 08:21 Pulse 76 01/27/25 08:21 Resp 16 01/27/25 08:21 BP 125/63 01/27/25 08:21 Pulse Ox 96 01/27/25 08:21 FiO2 Intake & Output 01/26/25 01/27/25 01/27/25 18:59 06:59 18:59 Intake Total 562 240 Output Total 2275 1400 400 Balance -1713 -1400 -160 Weight 109.5 kg Intake: Oral 562 240 Output: Urine 2275 1400 400 Other: Voiding Method Indwelling Catheter Indwelling Catheter - Exam GENERAL EXAM: Alert, weak obese 84-year-old male, on room air oxygen, fairly comfortable in no apparent distress. HEAD: Normocephalic. EYES: Normal reaction of pupils, equal size. NOSE: Clear with pink turbinates. THROAT: No erythema or exudates. NECK: No masses, no JVD. CHEST: No chest wall deformity. LUNGS: Equal air entry with no crackles, wheeze, rhonchi or dullness. CVS: S1 and S2 normal with no audible murmur, regular rhythm. ABDOMEN: No hepatosplenomegaly, normal bowel sounds, no guarding or rigidity. SPINE: No scoliosis or deformity SKIN: No rashes CENTRAL NERVOUS SYSTEM: No focal deficits, tone is normal in all 4 extremities. EXTREMITIES: There is no peripheral edema. No clubbing, no cyanosis. Peripheral pulses are intact. - Labs CBC & Chem 7: 01/27/25 05:59 01/27/25 05:59 Labs: Abnormal Lab Results - Last 24 Hours (Table) 01/26/25 01/26/25 01/26/25 Range/Units 11:30 16:40 20:15 RBC (4.40-5.60) 10*6/uL Hgb (13.0-17.0) g/dL Hct (39.6-50.0) % Immature Gran # (0.00-0.04) 10*3/uL Sodium (137-145) mmol/L Creatinine (0.66-1.25) mg/dL Glucose (74-99) mg/dL POC Glucose (mg/dL) 140 H 144 H 159 H (70-110) mg/dL Calcium (8.4-10.2) mg/dL 01/27/25 01/27/25 01/27/25 Range/Units 05:49 05:59 05:59 RBC 3.39 L (4.40-5.60) 10*6/uL Hgb 9.7 L (13.0-17.0) g/dL Hct 29.2 L (39.6-50.0) % Immature Gran # 0.05 H (0.00-0.04) 10*3/uL Sodium 134 L (137-145) mmol/L Creatinine 0.60 L (0.66-1.25) mg/dL Glucose 116 H (74-99) mg/dL POC Glucose (mg/dL) 125 H (70-110) mg/dL Calcium 7.9 L (8.4-10.2) mg/dL Microbiology - Last 24 Hours (Table) 01/24/25 06:49 Blood Culture - Preliminary Blood Assessment and Plan Plan: Infective endocarditis, KATHY was noted and the patient has a vegetation involving the coronary cusp and mild aortic regurgitation Sepsis with septic shock secondary to Pseudomonas aeruginosa septicemia, currently on IV cefepime. Clinically and hemodynamically stable. ID is on the case. Exact source of the pseudomonal septicemia is not clear at this point. The most recent blood culture that was obtained on 01/22/2025 is still showing positive Pseudomonas aeruginosa and initial blood culture was positive on 01/19/2025 and the patient remains on IV cefepime. Most recent blood cultures from01/24/2025 was negative. The patient remains on IV cefepime. IV is on the case. Hypotension with dizziness and near syncope secondary to above, recovered Febrile illness secondary to above, recovered and the patient is currently afe brile Left hand fifth digit ischemia, likely arterial, rule out septic embolism versus microvascular embolism and the patient is to be seen by vascular surgery. Clinically improving and vascular surgery remains on the case. Anemia with stool for occult blood positive Acute low back pain, MRI of the lumbar spine was completed and the patient has no evidence of discitis. 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 Atrial fibrillation anticoagulated with Eliquis, Hypertension, history of Hyperlipidemia Coronary artery disease status post stent placement Carotid artery disease status post repair Plan: Clinically stable Remains on IV cefepime for pseudomonal septicemia related to infective endocarditis Persistent bacteremia with Pseudomonas aeruginosa, awaiting follow-up blood cultures from 01/24/2025 which seems to be essentially negative for now. The patient has pseudomonal septicemia. KATHY was noted Currently cefepime, the patient will need a PICC line insertion followed by 6 weeks of antibiotic treatment for Pseudomonas septicemia and endocarditis. Infectious diseases on the case Briefly required norepinephrine, currently hemodynamically stable and off pressors, remains hemodynamically stable. Currently stable and on normal saline at 50 cc an hour continue anticoagulation with Eliquis, will discuss with infectious disease and cardiology the need for ongoing anticoagulation in the setting of endocarditis. Vascular surgery consultation regarding the ischemic left fifth digit. Titrate the FiO2 as needed, currently on room air oxygen Pulmonary critical care services will sign off.
[2025-01-27 20:21] LABS: Glucose,Whole Blood 154 mg/dL (70-110)
[2025-01-28 05:51] LABS: Glucose,Whole Blood 125 mg/dL (70-110)
[2025-01-28 06:53] LABS: African American GFR (CKD) >90 (>60 ml/min/1.73 sqM); Anion Gap 9 mmol/L; Blood Urea Nitrogen 14 mg/dL (9-20); Calcium 8.6 mg/dL (8.4-10.2); Carbon Dioxide 23 mmol/L (22-30); Chloride 104 mmol/L (98-107); Glucose 121 mg/dL (74-99); Non-African American GFR(CKD) >90 (>60 ml/min/1.73 sqM); Potassium 4.1 mmol/L (3.5-5.1); Sodium 136 mmol/L (137-145)
[2025-01-28] MEDS ORDERED: FAMOTIDINE 20 MG TAB PO SCH (09:00)
--- NOTE | 2025-01-28 11:47 | P.PN ---
Subjective HISTORY OF PRESENT ILLNESS: This is an 84-year-old gentleman who follows with Dr. Morales with a past medical history of CAD status post PCI at [facility] in 2003, carotid disease status post carotid stent in [facility] in 2021, hypertension, hyperlipidemia, persistent atrial fibrillation and type 2 diabetes. Presented to the hospital because of recurrent syncope passing out over the last 3 to 4 days. Also complained of dizziness, lightheadedness and generalized weakness. Recently treated for UTI. There was a concern for sepsis during this admission. Patient remains in atrial fibrillation with controlled ventricular response. Echocardiogram with Doppler study showed normal LV systolic function. 01/24/2025 Dr. Duong is requesting KATHY because patient has positive blood cultures for Pseudomonas aeruginosa. Patient will be scheduled tomorrow with Dr. Reed. 01/25/2025 Patient seen and examined. He underwent KATHY which was concerning for vegetation. Formal report is pending at this time. Patient has been afebrile, blood pressure 152/63, heart rate 60, pulse ox 95% on room air. 01/26/2025 Patient seen and examined. KATHY revealed vegetation noted on the right coronary cusp of the aortic valve. Patient has been afebrile, heart rate in the 60s to 80s, blood pressure 162/75, pulse ox 94% on room air. WBC 5.7, hemoglobin 9.8, creatinine 0.64, potassium 3.8. 01/27/2025 Patient examined this morning at the bedside. Patient is currently sitting up in the chair. Patient denies chest pain or pressure. He denies shortness of breath. He does report having some dizziness this morning. He remains on antibiotics per infectious disease. Vital signs are stable. 01/28/2025 Patient examined this morning at the bedside. Patient currently denies chest pain or pressure. He denies shortness of breath. Vital signs are stable. PHYSICAL EXAM: VITAL SIGNS: Reviewed. GENERAL: Well-developed in no acute distress. NECK: Supple. No JVD or thyromegaly LUNGS: Respirations even and unlabored. Lungs essentially clear to auscultation bilaterally. HEART: Regular rate and rhythm. S1 and S2 heard. Systolic murmur. EXTREMITIES: Normal range of motion. No clubbing or cyanosis. Peripheral pulses intact. No lower extremity edema ASSESSMENT: # Generalized weakness and lightheadedness # Questionable fall, questionable syncope # Sepsis, Pseudomonas bacteremia secondary to endocarditis with vegetation on the aortic valve # Failure to thrive # Persistent atrial fibrillation # CAD status post PCI at [facility] in 2003 # Carotid disease status post carotid stent in [facility] 2021 # Essential hypertension # Dyslipidemia # Type 2 diabetes PLAN: Continue antibiotics per infectious disease Continue current cardiac medications including Eliquis, aspirin, Lipitor, Imdur, losartan, metoprolol We will sign off. Please reconsult if needed. Nurse practitioner note has been reviewed by physician. Signing provider agrees with the documented findings, assessment, and plan of care documented by [employer]PER[employer]OR as a scribe. Objective - Vital Signs Vital signs: Vital Signs Temp 97.1 F L 01/28/25 09:22 Pulse 71 01/28/25 09:22 Resp 18 01/28/25 09:22 BP 151/66 01/28/25 09:22 Pulse Ox 96 01/28/25 09:22 FiO2 Intake & Output 01/27/25 01/28/25 01/28/25 18:59 06:59 18:59 Intake Total 960 Output Total 1025 2375 Balance -65 -2375 Weight 109.5 kg Intake: Oral 960 Output: Urine 1025 2375 Other: Voiding Method Indwelling Catheter Indwelling Catheter - Labs CBC & Chem 7: 01/27/25 05:59 01/28/25 06:03 Labs: Abnormal Lab Results - Last 24 Hours (Table) 01/27/25 01/27/25 01/28/25 Range/Units 16:21 20:18 05:44 Sodium (137-145) mmol/L Creatinine (0.66-1.25) mg/dL Glucose (74-99) mg/dL POC Glucose (mg/dL) 128 H 154 H 125 H (70-110) mg/dL 01/28/25 Range/Units 06:03 Sodium 136 L (137-145) mmol/L Creatinine 0.60 L (0.66-1.25) mg/dL Glucose 121 H (74-99) mg/dL POC Glucose (mg/dL) (70-110) mg/dL Microbiology - Last 24 Hours (Table) 01/24/25 06:49 Blood Culture - Preliminary Blood
[2025-01-28 11:56] LABS: Glucose,Whole Blood 132 mg/dL (70-110)
[2025-01-28] MEDS: CLOBETASOL PROP 0.05% CR 15GM TOPICAL SCH (12:46)
[2025-01-28] MEDS: FUROSEMIDE 10 MG/ML 2 ML VIAL IV ONE (14:17)
[2025-01-28 17:09] LABS: Glucose,Whole Blood 126 mg/dL (70-110)
--- NOTE | 2025-01-28 18:06 | P.PN ---
Subjective Progress Note Date: 01/28/25 Principal diagnosis: Reason for follow-up is fever/Pseudomonas bacteremia Patient is a 84-year-old male with a past medical history significant for Atrial Fibrillation, Coronary Artery Disease (CAD), Diabetes Mellitus, Hyperlipidemia, Hypertension, Syncope, Thyroid Disorder presenting to the hospital for evaluation of weakness and back pain did have a fever prompting this consultation. On today's evaluation that is 01/28/2025, Patient is afebrile patient is curren tly on room air and breathing comfortably no distress no vomiting diarrhea one of the changes has been reported. Patient did have a creatinine 0.60 blood cultures been has been negative Objective - Vital Signs Vital signs: Vital Signs Temp 97.1 F L 01/28/25 09:22 Pulse 71 01/28/25 09:22 Resp 18 01/28/25 09:22 BP 151/66 01/28/25 09:22 Pulse Ox 96 01/28/25 09:22 FiO2 Intake & Output 01/27/25 01/28/25 01/28/25 18:59 06:59 18:59 Intake Total 960 Output Total 1025 2375 Balance -65 -2375 Weight 109.5 kg Intake: Oral 960 Output: Urine 1025 2375 Other: Voiding Method Indwelling Catheter Indwelling Catheter - Exam GENERAL DESCRIPTION: An elderly male lying in bed in no distress RESPIRATORY SYSTEM: Unlabored breathing , decreased breath sounds at bases HEART: S1 S2 regular rate and rhythm , ABDOMEN: Soft , no tenderness EXTREMITIES: No edema feet - Labs CBC & Chem 7: 01/27/25 05:59 01/28/25 06:03 Labs: Abnormal Lab Results - Last 24 Hours (Table) 01/27/25 01/27/25 01/28/25 Range/Units 16:21 20:18 05:44 Sodium (137-145) mmol/L Creatinine (0.66-1.25) mg/dL Glucose (74-99) mg/dL POC Glucose (mg/dL) 128 H 154 H 125 H (70-110) mg/dL 01/28/25 Range/Units 06:03 Sodium 136 L (137-145) mmol/L Creatinine 0.60 L (0.66-1.25) mg/dL Glucose 121 H (74-99) mg/dL POC Glucose (mg/dL) (70-110) mg/dL Microbiology - Last 24 Hours (Table) 01/24/25 06:49 Blood Culture - Preliminary Blood Assessment and Plan (1) Back pain Current Visit: Yes Status: Acute Code(s): M54.9 - DORSALGIA, UNSPECIFIED SNOMED Code(s): 708130628 (2) SIRS (systemic inflammatory response syndrome) Current Visit: No Status: Acute Code(s): R65.10 - SIRS OF NON-INFECTIOUS ORIGIN W/O ACUTE ORGAN DYSFUNCTION SNOMED Code(s): 126432194 (3) Bacteremia due to Pseudomonas Current Visit: No Status: Acute Code(s): R78.81 - BACTEREMIA; B96.5 - PSEUDOMONAS (MALLEI) [facility] Code(s): 8618076171 Plan: 1patient presented to hospital with weakness lightheadedness and near syncopal episode has also been complaining of lower back pain with no history of any trauma no start running a fever did have mild elevated white count concerning for possible lumbosacral spinal disease responsible for this fever 2-patient blood culture positive for Pseudomonas with blood culture on 01/22/2025 also positive MRI of the lumbosacral spine was negative for any discitis or osteomyelitis echocardiogram did not mention any vegetation 3blood culture has been repeated 01/24/2022 and so far negative, KATHY has been positive for aortic valve small vegetation no perivalvular abscess 4patient hopeful will have PICC line placement tomorrow with a plan for 6-week course of cefepime with the patient has tolerated so for care has been discussed in detail with the daughter Yamilet on the phone question concern answered indicated he would likely need to go to the rehab for completion of the antibiotic therapy Dictation was produced using [employer] dictation software. please excuse any grammatical, word or spelling errors. Time with Patient: Less than 30
[2025-01-28 20:18] LABS: Glucose,Whole Blood 205 mg/dL (70-110)
[2025-01-28] MEDS: LACTULOSE 20 GM/30 ML CUP PO SCH (20:33)
--- NOTE | 2025-01-29 04:55 | P.PN ---
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 Associated close nonspecific dizziness but no headache. No specific limb weakness or numbness or blurred vision or double vision He has some vision problems and he follow-up with Dr. partida He denies chest pain or dyspnea. No other specific GI/ symptoms He has mild headache about 2-3/10 on the right side He states that recently he has been treated for UTI however he denies any urinary symptoms and urinalysis is negative. Vital stable afebrile. Is mildly tachycardic with heart rate 102. CBC BMP LFT and liver enzymes were unremarkable. Troponin is negative less than 0.012. Urinalysis normal. Chest x-ray showing no acute cardiopulmonary process EKG showing sinus tachycardia congestion with no significant ST-T changes but there is multiple P VCs. He was started on aspirin 325 mg admitted with cardiology team consult Patient currently complains from spasm in his lower back that comes severely for a few seconds before letting go 01/19 Patient awake alert not in distress today. He feels better he says he can get up today compared to yesterday but he still complaining from back pain His back pain looks better than yesterday like 10/19 however once he try to move his leg even with little bend of the knee he developed severe pain in the lower back. No chest pain dyspnea or abdominal pain or tenderness.. He spiked a fever 104 overnight. Labs from yesterday showing WBC 10.2 hemoglobin 12.7. INR 1.1. Potassium is 4.4 creatinine 1.07. Patient still getting normal saline 75 mL/h. He is on Dilaudid for pain control also he is on aspirin Eliquis and Pepcid 01/20 Patient clinically the same, awake alert complaining from severe low back pain. Dilaudid 0.5 mg was not enough we will increase the dose to 1 mg. No chest pain no headache or dizziness no other new complaints. He is currently on antibiotic IV vancomycin and cefepime. Also infectious disease team following closely. Blood culture is coming back positive pending sensitivity and further evaluation. Because of spine infection is suspected. Patient may require procedure we going to hold Eliquis starting tonight. He got dose this morning. We are going to start bridging heparin tonight. Patient received boluses of normal saline, hypotension improved, creatinine function is stable. MRI of the spine with and without contrast ordered by infectious disease team. Is going to be done tonight however because of his fever it was held this afternoon. We are treating his fever aggressively with Tylenol, ibuprofen ordered and cooling blanket. Blood pressure is also monitored closely and discussed with the staff to give boluses if required. 01/21 Patient was hypotensive overnight and he was transferred to the ICU. They gave him only a small bolus of normal saline 500 cc which apparently was not enough. With getting more fluid his blood pressure improved. He did not really need any pressors. Eventually patient was transferred back to the general medical floor today. His back pain controlled with Dilaudid MRI showed no epidural abscess but there is severe spinal stenosis at L3-L4. Neurology service recommended orthopedic follow-up as an outpatient not candidate for any surgical intervention because septic. Patient currently covered with cefepime, 2 blood culture samples came back positive for Pseudomonas. Cardiology team on the case echocardiogram requested. Also cardio recommend Holter monitor as an outpatient. 01/22/2025 Patient is seen in follow-up currently sitting up in the chair being followed by multiple consultations maintained on antibiotics with infectious disease following as patient's cultures were positive for Pseudomonas. Patient continues with significant weakness although per case management, family reports will be going home. Patient has extremely weak and would benefit from ECF. Patient also having some left pinky pain and discoloration with concerns of possible ischemia to this left pinky and vascular surgery has been consulted recommending a Doppler of the left extremity. Patient is afebrile and reports to not feeling well and generally weak. Recommend PT/OT therapy evaluation and reevaluation with discussion of possible ECF on discharge. Patient with significant comorbidities and continued ongoing difficulties, patient would benefit from ECF for continued strength and mobility. 01/23/2025 Patient is seen in follow-up today being followed by multiple consultations maintained on cefepime at this time with infectious disease following as patient had positive blood cultures that appear persistent and continued to show Pseudomonas aeruginosa. Preliminary repeat cultures remain positive as well and cardiology will be reconsulted for request of KATHY per ID recommendations which is pending at this time. Patient did have left fifth finger significant discoloration and pain and was evaluated by vascular surgery showing clinical improvement and discoloration is improved. Patient reports this had been hurting prior to admission from previous falls but he did not recall hurting anything with the fall. Vascular surgery not recommending any intervention at this time and patient is continued on Eliquis. Patient is currently afebrile with no reports of chest pain or shortness of breath. Patient continues to be weak and with prolonged hospitalization would recommend continued PT/OT therapy. Patient and family are adamant they are returning home on discharge. Will discuss with case management regarding discharge planning once patient is stabilized. Currently awaiting cardiology reevaluation for possible KATHY 01/24/2025 Patient is evaluated in follow-up on the medical floor. He is currently low and oriented x 2 and appears mildly confused today. He is currently pending cardiac evaluation for possible KATHY as he continues to have persistent Pseudomonas bacteremia with concern for infective endocarditis. Otherwise he has no acute complaints at this time. He reports continued left finger discoloration and pain. White blood cell count remains within normal limits. His sodium level today is 135, BUN of 13 creatinine of 0.69 magnesium level of 1.5. 01/25/2025 Patient is evaluated today in follow-up on the medical floor. He is awake alert and oriented x 3. He underwent transechocardiogram and per cardiology reports there is a high concern for vegetation. Awaiting formal KATHY report. Repeat blood culture has been taken and currently pending. He has 3 positive Pseudomonas cultures. His labs today reveal a white blood cell count of 5.92, hemoglobin 9.5, sodium 134, BUN of 10 creatinine 0.61 calcium 7.7 magnesium 1.6. He remains on IV cefepime per infectious disease. 01/26/2025 Patient is seen in follow-up today reporting some penile discomfort and does continue with chronic indwelling Marcelo catheter. Patient is currently maintained on IV cefepime with infectious disease following for bacteremia with Pseudomonas. Repeat blood culture from 01/24/2025 is preliminary negative thus far for 24 hours and needs to be a full 72 hours of being negative for patient to receive a PICC line. Patient with prolonged hospitalization and significant weakness was evaluated by physical therapy recommending rehab and patient and family are now agreeable. Patient did have a low-dose hydration going which will be discontinued with concerns of penile swelling we will give a dose of Lasix and also consult appreciate input and recommendations from neurology. Patient does have chronic indwelling Marcelo catheter. Patient also with left finger fifth digit discomfort was evaluated by vascular surgery with concerns of possible septic emboli versus microvascular emboli although is improving. No surgical interventions planned at this time and will be monitored closely. 01/27/2025 Patient is seen in follow-up today with no acute overnight issues noted. Patient continues to be pleasantly confused although this appears to be his baseline. Patient does continue with indwelling Marcelo catheter and did receive a dose of Lasix yesterday and denies any pain or swelling of the penis today. Urology consulted and pending at this time. Patient to continue with indwelling Marcelo catheter which is chronic. Patient also being followed by cardiology and infectious disease maintained on current regimen and will continue. Blood cultures thus far have been negative for 72 hours and will need to receive a PICC line and arrange for IV antibiotics in the outpatient setting. Patient continues to be significantly weak and will be going to ECF on discharge. Recommend getting up in the chair and sitting up more frequently and increased activity as tolerated. Patient does report left pinky pain but feels it is improving and he feels he did strike it when falling although he is unsure. Patient is a poor historian. Patient is currently afebrile with no reports of chest pain or shortness of breath. Patient reports tolerating diet with no nausea or vomiting noted. 01/28/2025 Patient is seen in follow-up this morning reports to feeling improved. Mentation is baseline and patient is hard of hearing although it is improved. Patient continues with chronic indwelling Marcelo catheter has some minimal swelling around the penis and Marcelo with urology on consult. Will add clobetasol cream daily and given additional dose of Lasix. Patient is voiding yellow urine. Blood cultures have been negative for 72 hours and PICC line is scheduled although no staff available and will likely occur on Wednesday. Plan is for rehab and will follow-up with case management and updated PT/OT therapy notes to inquire about possible discharge planning to ECF. Patient did have positive KATHY for infective endocarditis. Patient reports he has not had a bowel movement in a few days and will add lactulose and continue with as needed bowel regimen. Encouraged to increase activity as tolerated with sitting up in the chair more frequently. Review of systems: Constitutional: No reports of fatigue, no fever, or chills Cardiovascular: No reports of chest pain or palpitations Respiratory: No reports of shortness of breath or cough GI: No reports of nausea, vomiting, or diarrhea, reports not eating much but feels it is improving : No further reports of dysuria or penile swelling with chronic indwelling Marcelo catheter, some minimal swelling noted Neurovascular: reports of generalized weakness with difficulty in ambulating, left pinky finger pain and discoloration appears to be improving All medications have been reviewed Physical exam: GENERAL: The patient is alert and oriented x 2, baseline state, not in any acute distress. Hard of hearing. Well developed, elderly appearing, chronically ill appearing. Obese HEENT: Pupils are round and equally reacting to light. EOMI. No scleral icterus. No conjunctival pallor. Normocephalic, atraumatic. No pharyngeal erythema. No thyromegaly. CARDIOVASCULAR: S1 and S2 muffled PULMONARY: Diminished breath sounds bilaterally otherwise chest is clear to auscultation, no wheezing , no crackles. ABDOMEN: Soft, obese, nontender, nondistended, normoactive bowel sounds. No palpable organomegaly. MUSCULOSKELETAL: No joint swelling or deformity. EXTREMITIES: No cyanosis, clubbing, or pedal edema. Left finger fifth digit mildly discolored showing improvements in cyanosis, warm to the touch at the tip, cap refill at 3 seconds, extremely painful to the touch NEUROLOGICAL: Gross neurological examination did not reveal any focal deficits. Diffusely weak SKIN: No rashes. no petechiae. 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 Recurrent syncope and falling, last few seconds with no seizure activity likely secondary to infective endocarditis Fevers, on admission, secondary to septicemia with infective endocarditis Left fifth digit finger discoloration, cyanotic, cold to the touch with concerns of septic embolism versus microvascular emboli versus possible injury from the fall, improving and no plans of surgical intervention at this time Acute severe lower back pain, secondary to severe lumbar spinal stenosis seen on the MRI, no evidence of osteomyelitis or discitis Generalized weakness and gait dysfunction Hypomagnesemia, improved after replacement Dehydration secondary to poor oral intake A-fib with mild RVR, maintained on Eliquis, currently rate controlled 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 Follow-up blood culture including repeats have been negative for 72 hours and is status post KATHY with concerns of infective endocarditis on the aortic valve. Patient will require a PICC line and outpatient IV antibiotics. Unfortunately there is no staff available to perform a PICC and will likely be done on Wednesday Infectious disease following and will plan for outpatient IV antibiotics and patient will be going to ECF as patient is significantly weak and was evaluated by physical therapy recommending rehab. Patient and family are now agreeable. left fifth digit discoloration with cyanosis with concerns of septic embolism although improving and has positive pulses, likely injury with bruising se condary to frequent falls prior to hospitalization, vascular surgery has evaluated with no surgical interventions planned recommending outpatient follow- up Follow-up on repeat labs and replace electrolytes per protocol Patient did have some penile swelling yesterday and continues with chronic indwelling Marcelo catheter. Patient did receive a dose of Lasix and denies any further issues with swelling. Urology was consulted and pending at this time. Will add clobetasol cream daily Patient is high risk for readmissions given significant comorbidities Patient will likely not receive his PICC line until Wednesday and will follow-up with case management regarding discharge planning to ECF. Patient will need to be reevaluated by PT/OT therapy with updated notes. Patient will also require insurance authorization. The impression and plan of care has been dictated by Vicky Alvarado, Nurse Practitioner as directed. This is the verbal consent since Dr. Osiris MD I have performed a history and examination and MDM of this patient, discussed the same with the dictator, and agree with the dictator's assessment and plan as written ,documented as a scribe. Based on total visit time, I have performed more than 50% of the visit. Objective - Vital Signs Vital signs: Vital Signs Temp 97.1 F L 01/28/25 09:22 Pulse 71 01/28/25 09:22 Resp 18 01/28/25 09:22 BP 151/66 01/28/25 09:22 Pulse Ox 96 01/28/25 09:22 FiO2 Intake & Output 01/27/25 01/28/25 01/28/25 18:59 06:59 18:59 Intake Total 960 Output Total 1025 2375 Balance -65 -2375 Weight 109.5 kg Intake: Oral 960 Output: Urine 1025 2375 Other: Voiding Method Indwelling Catheter Indwelling Catheter - Labs CBC & Chem 7: 01/27/25 05:59 01/28/25 06:03 Labs: Abnormal Lab Results - Last 24 Hours (Table) 01/27/25 01/27/25 01/27/25 Range/Units 11:21 16:21 20:18 Sodium (137-145) mmol/L Creatinine (0.66-1.25) mg/dL Glucose (74-99) mg/dL POC Glucose (mg/dL) 144 H 128 H 154 H (70-110) mg/dL 01/28/25 01/28/25 Range/Units 05:44 06:03 Sodium 136 L (137-145) mmol/L Creatinine 0.60 L (0.66-1.25) mg/dL Glucose 121 H (74-99) mg/dL POC Glucose (mg/dL) 125 H (70-110) mg/dL Microbiology - Last 24 Hours (Table) 01/24/25 06:49 Blood Culture - Preliminary Blood
[2025-01-29 07:06] LABS: Glucose,Whole Blood 126 mg/dL (70-110)
[2025-01-29 07:56] LABS: African American GFR (CKD) >90 (>60 ml/min/1.73 sqM); Anion Gap 8 mmol/L; Blood Urea Nitrogen 15 mg/dL (9-20); Calcium 8.9 mg/dL (8.4-10.2); Carbon Dioxide 24 mmol/L (22-30); Chloride 103 mmol/L (98-107); Glucose 128 mg/dL (74-99); Magnesium 1.6 mg/dL (1.6-2.3); Non-African American GFR(CKD) >90 (>60 ml/min/1.73 sqM); Potassium 4.1 mmol/L (3.5-5.1); Sodium 135 mmol/L (137-145)
[2025-01-29] MEDS: MAGNESIUM SULFATE-D5W PMX 1 GM in DEXTROSE/WATER 1 100ML.BAG IVPB SCH (10:50)
[2025-01-29 12:05] LABS: Glucose,Whole Blood 148 mg/dL (70-110)
[2025-01-29 12:44] VITALS: BP 107/61; PULSE 53; RESP 20; TEMP 97.8
--- NOTE | 2025-01-29 13:14 | P.GSCN ---
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 Over the weekend it was noticed that patient had some penile edema and was having penile pain and indicated that his foreskin was not retracted completely. He subsequently received a dose of Lasix and noticed improvement in the swelling and the pain. Swelling on evaluation he indicates he is experiencing no pain or swelling. He does have a history of chronic retention with chronic Marcelo. No evidence of gross hematuria. Review of Systems - Constitutional Denies fever, Denies weight loss - Respiratory Denies cough, Denies 7 - Gastrointestinal Reports as per HPI - Genitourinary Denies dysuria, Denies flank pain, Denies hematuria Past Medical History Past Medical History: Atrial Fibrillation, Coronary Artery Disease (CAD), Diabetes Mellitus, Hyperlipidemia, Hypertension, Syncope, Thyroid Disorder Additional Past Medical History / Comment(s): cardiac stents, carotid stent, AAA (states Dr is watching), hx kidney stones, hx of colon polyps, kidney infection History of Any Multi-Drug Resistant Organisms: None Reported Past Surgical History: Heart Catheterization With Stent, Tonsillectomy Additional Past Surgical History / Comment(s): 6 stents, charity cataracts Past Anesthesia/Blood Transfusion Reactions: No Reported Reaction Date of Last Stent Placement:: unknown Smoking Status: Former smoker - Past Family History Mother Family Medical History: No Reported History Medications and Allergies Home Medications Medication Instructions Recorded Confirmed Type Aspirin EC [Ecotrin Low Dose] 81 mg PO DAILY@0900 10/30/16 01/18/25 History Isosorbide Mononitrate ER [Imdur] 60 mg PO DAILY@0910/30/16 01/18/25 History Nitroglycerin Sl Tabs [Nitrostat] 0.4 mg SL Q5M PRN 10/30/16 01/18/25 History Omeprazole 20 mg PO HS@1800 10/30/16 01/18/25 History Levothyroxine Sodium [Synthroid] 50 mcg PO DAILY@0900 01/13/18 01/18/25 History Niacin (Inositol Niacinate) 500 mg PO HS@1800 10/19/20 01/18/25 History [Niacin 500 mg Capsule] Apixaban [Eliquis] 5 mg PO BID@0900,1800 09/26/24 01/18/25 History Atorvastatin [Lipitor] 40 mg PO DAILY@0900 09/26/24 01/18/25 History Dulaglutide [Trulicity] 0.75 mg SQ TH@0900 09/26/24 01/18/25 History Metoprolol Tartrate [Lopressor] 50 mg PO BID #60 tab 10/03/24 01/18/25 Rx Acetaminophen Tab [Tylenol Tab] 1,000 mg PO Q6H PRN 01/18/25 01/18/25 History Allergies Allergy/AdvReac Type Severity Reaction Status Date / Time No Known Allergies Allergy Verified 01/18/25 10:49 Surgical - Exam Vital Signs Temp Pulse Resp BP Pulse Ox 97.7 F 82 22 167/81 98 01/18/25 08:33 01/18/25 08:33 01/18/25 08:33 01/18/25 08:33 01/18/25 08:33 - General no distress, no pain - ENT normal nares, normal mucosa - Respiratory normal expansion, normal respiratory effort - Abdomen Abdomen: soft, non tender - Genitourinary On exam no evidence of penile edema, catheter in place with clear urine. Foreskin is covering the glans, he does have some degree of phimosis. No abnormality in the glans. Results - Labs 01/27/25 05:59 01/29/25 07:30 Abnormal Lab Results - Last 24 Hours (Table) 01/28/25 01/28/25 01/29/25 Range/Units 17:07 20:17 07:05 Sodium (137-145) mmol/L Creatinine (0.66-1.25) mg/dL Glucose (74-99) mg/dL POC Glucose (mg/dL) 126 H 205 H 126 H (70-110) mg/dL 01/29/25 01/29/25 Range/Units 07:30 12:04 Sodium 135 L (137-145) mmol/L Creatinine 0.57 L (0.66-1.25) mg/dL Glucose 128 H (74-99) mg/dL POC Glucose (mg/dL) 148 H (70-110) mg/dL Microbiology - Last 24 Hours (Table) 01/24/25 06:49 Blood Culture - Final Blood Diabetes panel 07/21/25 Range/Units 07:30 Sodium 135 L (137-145) mmol/L Potassium 4.1 (3.5-5.1) mmol/L Chloride 103 (98-107) mmol/L Carbon Dioxide 24 (22-30) mmol/L BUN 15 (9-20) mg/dL Creatinine 0.57 L (0.66-1.25) mg/dL Glucose 128 H (74-99) mg/dL Calcium 8.9 (8.4-10.2) mg/dL Calcium panel 01/29/25 Range/Units 07:30 Calcium 8.9 (8.4-10.2) mg/dL Pituitary panel 01/29/25 Range/Units 07:30 Sodium 135 L (137-145) mmol/L Potassium 4.1 (3.5-5.1) mmol/L Chloride 103 (98-107) mmol/L Carbon Dioxide 24 (22-30) mmol/L BUN 15 (9-20) mg/dL Creatinine 0.57 L (0.66-1.25) mg/dL Glucose 128 H (74-99) mg/dL Calcium 8.9 (8.4-10.2) mg/dL Adrenal panel 01/29/25 Range/Units 07:30 Sodium 135 L (137-145) mmol/L Potassium 4.1 (3.5-5.1) mmol/L Chloride 103 (98-107) mmol/L Carbon Dioxide 24 (22-30) mmol/L BUN 15 (9-20) mg/dL Creatinine 0.57 L (0.66-1.25) mg/dL Glucose 128 H (74-99) mg/dL Calcium 8.9 (8.4-10.2) mg/dL Assessment and Plan Assessment: 84-year-old male with history of chronic retention has a chronic Marcelo. Urology consulted for possible paraphimosis and penile edema, on exam I do not appreci ate any edema or paraphimosis at this time, the foreskin was slightly retracted, was able to retract to completely cover the glans without any issues. From urology standpoint no further intervention is needed.
--- NOTE | 2025-01-29 16:22 | P.DS ---
Providers Date of admission: 01/18/25 11:49 Expected date of discharge: 01/29/25 Attending physician: Patricia Rodgers Consults: 01/18/25 11:48 Consult Physician Routine Consulting Provider: Theo Espinoza Consult Reason/Comments: syncope Do you want consulting provider notified?: Yes 01/18/25 12:01 Consult Physician Routine Consulting Provider: Kiera Robles Consult Reason/Comments: dizziness , fall and back pain Do you want consulting provider notified?: Yes 01/19/25 08:34 Consult Physician Routine Consulting Provider: Nicole Duong Consult Reason/Comments: fever Do you want consulting provider notified?: Yes 01/20/25 16:47 Consult Physician Urgent Consulting Provider: Teto Jean Consult Reason/Comments: ICU management Do you want consulting provider notified?: Already Contacted 01/26/25 14:03 Consult Physician Urgent Consulting Provider: Erick De La Torre Consult Reason/Comments: penile pain, swelling, unable to retract foreskin, chronic banerjee Do you want consulting provider notified?: Yes Primary care physician: Oswald Ashraf Hospital Course: Final diagnosis Severe sepsis with septic shock with Pseudomonas bacteremia on admission, bacteremia is persistent with Pseudomonas and repeat blood cultures from 01/24/2025 are negative thus far for 72 hours 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 Recurrent syncope and falling, last few seconds with no seizure activity likely secondary to infective endocarditis Fevers, on admission, secondary to septicemia with infective endocarditis Left fifth digit finger discoloration, cyanotic, cold to the touch with concerns of septic embolism versus microvascular emboli versus possible injury from the fall, improving and no plans of surgical intervention at this time Acute severe lower back pain, secondary to severe lumbar spinal stenosis seen on the MRI, no evidence of osteomyelitis or discitis Generalized weakness and gait dysfunction Hypomagnesemia, improved after replacement Dehydration secondary to poor oral intake A-fib with mild RVR, maintained on Eliquis, currently rate controlled 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 Patient will follow-up with Dr. Ashraf in the outpatient setting upon discharge. Patient is to continue with IV antibiotics in the form of cefepime every 8 hours for the next 6 weeks per ID recommendations with close outpatient follow-up with infectious disease as scheduled. Total time taken is greater than 35 minutes. 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 Associated close nonspecific dizziness but no headache. No specific limb weakness or numbness or blurred vision or double vision He has some vision problems and he follow-up with Dr. partida He denies chest pain or dyspnea. No other specific GI/ symptoms He has mild headache about 2-3/10 on the right side He states that recently he has been treated for UTI however he denies any urinary symptoms and urinalysis is negative. Vital stable afebrile. Is mildly tachycardic with heart rate 102. CBC BMP LFT and liver enzymes were unremarkable. Troponin is negative less than 0.012. Urinalysis normal. Chest x-ray showing no acute cardiopulmonary process EKG showing sinus tachycardia congestion with no significant ST-T changes but there is multiple PVCs. He was started on aspirin 325 mg admitted with cardiology team consult Patient currently complains from spasm in his lower back that comes severely for a few seconds before letting go 01/19 Patient awake alert not in distress today. He feels better he says he can get up today compared to yesterday but he still complaining from back pain His back pain looks better than yesterday like 10/19 however once he try to move his leg even with little bend of the knee he developed severe pain in the lower back. No chest pain dyspnea or abdominal pain or tenderness.. He spiked a fever 104 overnight. Labs from yesterday showing WBC 10.2 hemoglobin 12.7. INR 1.1. Potassium is 4.4 creatinine 1.07. Patient still getting normal saline 75 mL/h. He is on Dilaudid for pain control also he is on aspirin Eliquis and Pepcid 01/20 Patient clinically the same, awake alert complaining from severe low back pain. Dilaudid 0.5 mg was not enough we will increase the dose to 1 mg. No chest pain no headache or dizziness no other new complaints. He is currently on antibiotic IV vancomycin and cefepime. Also infectious disease team following closely. Blood culture is coming back positive pending sensitivity and further evaluation. Because of spine infection is suspected. Patient may require procedure we going to hold Eliquis starting tonight. He got dose this morning. We are going to start bridging heparin tonight. Patient received boluses of normal saline, hypotension improved, creatinine function is stable. MRI of the spine with and without contrast ordered by infectious disease team. Is going to be done tonight however because of his fever it was held this afternoon. We are treating his fever aggressively with Tylenol, ibuprofen ordered and cooling blanket. Blood pressure is also monitored closely and discussed with the staff to give boluses if required. 01/21 Patient was hypotensive overnight and he was transferred to the ICU. They gave him only a small bolus of normal saline 500 cc which apparently was not enough. With getting more fluid his blood pressure improved. He did not really need any pressors. Eventually patient was transferred back to the general medical floor today. His back pain controlled with Dilaudid MRI showed no epidural abscess but there is severe spinal stenosis at L3-L4. Neurology service recommended orthopedic follow-up as an outpatient not candidate for any surgical intervention because septic. Patient currently covered with cefepime, 2 blood culture samples came back positive for Pseudomonas. Cardiology team on the case echocardiogram requested. Also cardio recommend Holter monitor as an outpatient. 01/22/2025 Patient is seen in follow-up currently sitting up in the chair being followed by multiple consultations maintained on antibiotics with infectious disease following as patient's cultures were positive for Pseudomonas. Patient continues with significant weakness although per case management, family reports will be going home. Patient has extremely weak and would benefit from ECF. Patient also having some left pinky pain and discoloration with concerns of possible ischemia to this left pinky and vascular surgery has been consulted recommending a Doppler of the left extremity. Patient is afebrile and reports to not feeling well and generally weak. Recommend PT/OT therapy evaluation and reevaluation with discussion of possible ECF on discharge. Patient with significant comorbidities and continued ongoing difficulties, patient would benefit from ECF for continued strength and mobility. 01/23/2025 Patient is seen in follow-up today being followed by multiple consultations maintained on cefepime at this time with infectious disease following as patient had positive blood cultures that appear persistent and continued to show Pseudomonas aeruginosa. Preliminary repeat cultures remain positive as well and cardiology will be reconsulted for request of KATHY per ID recommendations which is pending at this time. Patient did have left fifth finger significant discoloration and pain and was evaluated by vascular surgery showing clinical improvement and discoloration is improved. Patient reports this had been hurting prior to admission from previous falls but he did not recall hurting anything with the fall. Vascular surgery not recommending any intervention at this time and patient is continued on Eliquis. Patient is currently afebrile with no reports of chest pain or shortness of breath. Patient continues to be weak and with prolonged hospitalization would recommend continued PT/OT therapy. Patient and family are adamant they are returning home on discharge. Will discuss with case management regarding discharge planning once patient is stabilized. Currently awaiting cardiology reevaluation for possible KATHY 01/24/2025 Patient is evaluated in follow-up on the medical floor. He is currently low and oriented x 2 and appears mildly confused today. He is currently pending cardiac evaluation for possible KATHY as he continues to have persistent Pseudomonas bacteremia with concern for infective endocarditis. Otherwise he has no acute complaints at this time. He reports continued left finger discoloration and pain. White blood cell count remains within normal limits. His sodium level today is 135, BUN of 13 creatinine of 0.69 magnesium level of 1.5. 01/25/2025 Patient is evaluated today in follow-up on the medical floor. He is awake alert and oriented x 3. He underwent transechocardiogram and per cardiology reports t here is a high concern for vegetation. Awaiting formal KATHY report. Repeat blood culture has been taken and currently pending. He has 3 positive Pseudomonas cultures. His labs today reveal a white blood cell count of 5.92, hemoglobin 9.5, sodium 134, BUN of 10 creatinine 0.61 calcium 7.7 magnesium 1.6. He remains on IV cefepime per infectious disease. 01/26/2025 Patient is seen in follow-up today reporting some penile discomfort and does continue with chronic indwelling Banerjee catheter. Patient is currently maintained on IV cefepime with infectious disease following for bacteremia with Pseudomonas. Repeat blood culture from 01/24/2025 is preliminary negative thus far for 24 hours and needs to be a full 72 hours of being negative for patient to receive a PICC line. Patient with prolonged hospitalization and significant weakness was evaluated by physical therapy recommending rehab and patient and family are now agreeable. Patient did have a low-dose hydration going which will be discontinued with concerns of penile swelling we will give a dose of Lasix and also consult appreciate input and recommendations from neurology. Patient does have chronic indwelling Banerjee catheter. Patient also with left finger fifth digit discomfort was evaluated by vascular surgery with concerns of possible septic emboli versus microvascular emboli although is improving. No surgical interventions planned at this time and will be monitored closely. 01/27/2025 Patient is seen in follow-up today with no acute overnight issues noted. Patient continues to be pleasantly confused although this appears to be his baseline. Patient does continue with indwelling Banerjee catheter and did receive a dose of Lasix yesterday and denies any pain or swelling of the penis today. Urology consulted and pending at this time. Patient to continue with indwelling Banerjee catheter which is chronic. Patient also being followed by cardiology and infectious disease maintained on current regimen and will continue. Blood cultures thus far have been negative for 72 hours and will need to receive a PICC line and arrange for IV antibiotics in the outpatient setting. Patient continues to be significantly weak and will be going to ECF on discharge. Recommend getting up in the chair and sitting up more frequently and increased activity as tolerated. Patient does report left pinky pain but feels it is impr oving and he feels he did strike it when falling although he is unsure. Patient is a poor historian. Patient is currently afebrile with no reports of chest pain or shortness of breath. Patient reports tolerating diet with no nausea or vomiting noted. 01/28/2025 Patient is seen in follow-up this morning reports to feeling improved. Mentation is baseline and patient is hard of hearing although it is improved. Patient continues with chronic indwelling Banerjee catheter has some minimal swelling around the penis and Banerjee with urology on consult. Will add clobetasol cream daily and given additional dose of Lasix. Patient is voiding yellow urine. Blood cultures have been negative for 72 hours and PICC line is scheduled although no staff available and will likely occur on Wednesday. Plan is for rehab and will follow-up with case management and updated PT/OT therapy notes to inquire about possible discharge planning to ECF. Patient did have positive KATHY for infective endocarditis. Patient reports he has not had a bowel movement in a few days and will add lactulose and continue with as needed bowel regimen. Encouraged to increase activity as tolerated with sitting up in the chair more frequently. 01/29/2025 Patient has been cleared by consultations has had negative blood cultures for over 72 hours and has received a PICC line today. Patient will continue on cefepime 2 g every 8 hours for the next 6 weeks per ID recommendations. Patient to continue with indwelling Banerjee catheter as this is chronic and recommend continuing with clobetasol daily as patient was having issues with swelling and difficulty retracting the foreskin. Patient was evaluated by urology with no surgical interventions planned recommending to continue with current regimen. Patient does have chronic back pain and does take Newton's and recommend to continue. Patient to follow-up with orthopedics as needed outpatient. Patient with significant weakness initially wanting to go home although evaluated by physical therapy recommending rehab and patient and family are now agreeable especially given that patient will require 6 weeks of IV antibiotic therapy. Patient has been cleared by consultations. Please refer to consultation notes for further HPI. Physical exam: GENERAL: The patient is alert and oriented x 2, baseline state, not in any acute distress. Hard of hearing. Well developed, elderly appearing, chronically ill appearing. Obese HEENT: Pupils are round and equally reacting to light. EOMI. No scleral icterus. No conjunctival pallor. Normocephalic, atraumatic. No pharyngeal erythema. No thyromegaly. CARDIOVASCULAR: S1 and S2 muffled PULMONARY: Diminished breath sounds bilaterally otherwise chest is clear to auscultation, no wheezing , no crackles. ABDOMEN: Soft, obese, nontender, nondistended, normoactive bowel sounds. No palpable organomegaly. MUSCULOSKELETAL: No joint swelling or deformity. EXTREMITIES: No cyanosis, clubbing, or pedal edema. Left finger fifth digit mildly discolored showing improvements in cyanosis, warm to the touch at the tip, cap refill at 3 seconds, extremely painful to the touch NEUROLOGICAL: Gross neurological examination did not reveal any focal deficits. Diffusely weak SKIN: No rashes. no petechiae. Please refer to medication reconciliation sheet for a list of medications. The impression and plan of care has been dictated by Vicky Alvarado, Nurse Practitioner as directed. Dr. Tayler MD I have performed a history and examination and MDM of this patient, discussed the same with the dictator, and agree with the dictator's assessment and plan as written ,documented as a scribe. Based on total visit time, I have performed more than 50% of the visit. Patient Condition at Discharge: Fair Plan - Discharge Summary Discharge Rx Participant: No New Discharge Prescriptions: New Lactulose [Cephulac] 20 gm PO BID ml INSULIN LISPRO (HumaLOG) [HumaLOG] 0 unit SQ ACHS each Isosorbide Mononitrate ER [Imdur] 30 mg PO DAILY@0900 tab Cefepime [Maxipime] 2 gm IVPB Q8H 42 Days #126 each Ibuprofen [Motrin] 600 mg PO TID PRN tab PRN Reason: Fever Famotidine [Pepcid] 20 mg PO BID tab Losartan [Cozaar] 50 mg PO DAILY tab HYDROcodone/APAP 5-325MG [Newton 5-325] 1 each PO Q6HR PRN #6 tab PRN Reason: Pain Clobetasol Propionate [Temovate 0.05% Cream] 1 applic TOPICAL DAILY each Continue Nitroglycerin Sl Tabs [Nitrostat] 0.4 mg SL Q5M PRN PRN Reason: Chest Pain Aspirin EC [Ecotrin Low Dose] 81 mg PO DAILY@0900 Levothyroxine Sodium [Synthroid] 50 mcg PO DAILY@0900 Atorvastatin [Lipitor] 40 mg PO DAILY@0900 Dulaglutide [Trulicity] 0.75 mg SQ TH@0900 Metoprolol Tartrate [Lopressor] 50 mg PO BID #60 tab Apixaban [Eliquis] 5 mg PO BID@0900,1800 Acetaminophen Tab [Tylenol] 1,000 mg PO Q6H PRN PRN Reason: Pain Discontinued Omeprazole 20 mg PO HS@1800 Isosorbide Mononitrate ER [Imdur] 60 mg PO DAILY@0900 Niacin (Inositol Niacinate) [Niacin 500 mg Capsule] 500 mg PO HS@1800 Discharge Medication List Aspirin EC [Ecotrin Low Dose] 81 mg PO DAILY@0900 10/30/16 [History] Nitroglycerin Sl Tabs [Nitrostat] 0.4 mg SL Q5M PRN 10/30/16 [History] Levothyroxine Sodium [Synthroid] 50 mcg PO DAILY@0900 01/13/18 [History] Apixaban [Eliquis] 5 mg PO BID@0900,1800 09/26/24 [History] Atorvastatin [Lipitor] 40 mg PO DAILY@0900 09/26/24 [History] Dulaglutide [Trulicity] 0.75 mg SQ TH@0900 09/26/24 [History] Metoprolol Tartrate [Lopressor] 50 mg PO BID #60 tab 10/03/24 [Rx] Acetaminophen Tab [Tylenol] 1,000 mg PO Q6H PRN 01/18/25 [History] Cefepime [Maxipime] 2 gm IVPB Q8H 42 Days #126 each 01/29/25 [Rx] Clobetasol Propionate [Temovate 0.05% Cream] 1 applic TOPICAL DAILY each 01/29/25 [Rx] Famotidine [Pepcid] 20 mg PO BID tab 01/29/25 [Rx] HYDROcodone/APAP 5-325MG [Newton 5-325] 1 each PO Q6HR PRN #6 tab 01/29/25 [Rx] INSULIN LISPRO (HumaLOG) [HumaLOG] 0 unit SQ ACHS each 01/29/25 [Rx] Ibuprofen [Motrin] 600 mg PO TID PRN tab 01/29/25 [Rx] Isosorbide Mononitrate ER [Imdur] 30 mg PO DAILY@0900 tab 01/29/25 [Rx] Lactulose [Cephulac] 20 gm PO BID ml 01/29/25 [Rx] Losartan [Cozaar] 50 mg PO DAILY tab 01/29/25 [Rx] Follow up Appointment(s)/Referral(s): Oswald Ashraf MD [Primary Care Provider] - 1-2 days Nicole Duong MD [STAFF PHYSICIAN] - 1 Week Erik Reed MD [STAFF PHYSICIAN] - 3 Weeks Activity/Diet/Wound Care/Special Instructions: Patient is going to [facility] Activity as tolerated Follow-up with orthopedics outpatient Follow-up with cardiology outpatient Follow-up with infectious disease outpatient Continue current medications Follow-up with vascular surgery outpatient Patient has received a PICC line and will be going on 6 weeks of cefepime per ID recommendations Continue monitoring Accu-Cheks AC and at bedtime NovoLog sliding scale 0-150 equals 0 units 151-200 equals 2 units 201-250 equals 4 units 251-300 equals 6 units 301-350 equals 8 units 351-400 equals 10 units Please notify provider if blood sugar is 400 or above Continue heart healthy diabetic diet Discharge Disposition: TRANSFER TO SNF/ECF
[2025-01-29 17:09] LABS: Glucose,Whole Blood 118 mg/dL (70-110)
--- NOTE | 2025-01-30 14:03 | P.PN ---
Subjective Progress Note Date: 01/29/25 Principal diagnosis: Reason for follow-up is fever/Pseudomonas bacteremia Patient is a 84-year-old male with a past medical history significant for Atrial Fibrillation, Coronary Artery Disease (CAD), Diabetes Mellitus, Hyperlipidemia, Hypertension, Syncope, Thyroid Disorder presenting to the hospital for evaluation of weakness and back pain did have a fever prompting this consultation. On today's evaluation that is 01/29/2025, patient has been afebrile, patient is breathing comfortably and is currently on room air, patient denies having any chest pain shortness of breath or cough no nausea vomiting abdominal pain or diarrhea. Patient did have creatinine 0.57 blood culture from 01/24/2025 has been negative Objective - Vital Signs Vital signs: Vital Signs Temp 97.8 F 01/29/25 12:06 Pulse 53 L 01/29/25 12:06 Resp 20 01/29/25 12:06 BP 107/61 01/29/25 12:06 Pulse Ox 96 01/29/25 12:06 FiO2 Intake & Output 01/28/25 01/29/25 01/29/25 18:59 06:59 18:59 Intake Total 540 Output Total 1800 1725 Balance -1260 -1725 Intake: Oral 540 Output: Urine 1800 1725 Other: Voiding Method Indwelling Catheter Indwelling Catheter Indwelling Catheter - Exam GENERAL DESCRIPTION: An elderly male lying in bed in no distress RESPIRATORY SYSTEM: Unlabored breathing , decreased breath sounds at bases HEART: S1 S2 regular rate and rhythm , ABDOMEN: Soft , no tenderness EXTREMITIES: No edema feet - Labs CBC & Chem 7: 01/27/25 05:59 01/29/25 07:30 Labs: Abnormal Lab Results - Last 24 Hours (Table) 01/28/25 01/28/25 01/29/25 Range/Units 17:07 20:17 07:05 Sodium (137-145) mmol/L Creatinine (0.66-1.25) mg/dL Glucose (74-99) mg/dL POC Glucose (mg/dL) 126 H 205 H 126 H (70-110) mg/dL 01/29/25 01/29/25 Range/Units 07:30 12:04 Sodium 135 L (137-145) mmol/L Creatinine 0.57 L (0.66-1.25) mg/dL Glucose 128 H (74-99) mg/dL POC Glucose (mg/dL) 148 H (70-110) mg/dL Assessment and Plan (1) Back pain Status: Acute Code(s): M54.9 - DORSALGIA, UNSPECIFIED SNOMED Code(s): 676152002 (2) SIRS (systemic inflammatory response syndrome) Status: Acute Code(s): R65.10 - SIRS OF NON-INFECTIOUS ORIGIN W/O ACUTE ORGAN DYSFUNCTION SNOMED Code(s): 055242513 (3) Bacteremia due to Pseudomonas Status: Acute Code(s): R78.81 - BACTEREMIA; B96.5 - PSEUDOMONAS (MALLEI) CAUSING DISEASES CLASSD ELSWHR SNOMED Code(s): 7215198626 Plan: 1patient presented to hospital with weakness lightheadedness and near syncopal episode has also been complaining of lower back pain with no history of any trauma no start running a fever did have mild elevated white count concerning for possible lumbosacral spinal disease responsible for this fever 2-patient blood culture positive for Pseudomonas with blood culture on 01/22/2025 also positive MRI of the lumbosacral spine was negative for any discitis or osteomyelitis echocardiogram did not mention any vegetation 3blood culture has been repeated 01/24/2022 and so far negative, KATHY has been positive for aortic valve small vegetation no perivalvular abscess 4patient did have a PICC line placement plan is for 6-week course of IV cefepime 2 g every 8 hours with weekly monitoring of his inflammation markers and closer patient follow-up discussed with FELT CEMENTER for immediately working on discharge Dictation was produced using [employer] dictation software. please excuse any grammatical, word or spelling errors. Time with Patient: Less than 30
--- NOTE | 2025-01-31 16:52 | ECHOT ---
TRANSESOPHAGEAL ECHOCARDIOGRAM INDICATION: Pseudomonas bacteremia, rule out endocarditis. PROCEDURE NOTE: After obtaining informed consent, transesophageal echocardiogram is performed in left lateral position using an Omniplane probe. Local and IV sedation were obtained using Xylocaine spray, Versed, and fentanyl. The patient tolerated the procedure well without any obvious immediate complications. Total sedation time was 5 minutes. FINDINGS: 1. Aortic valve is a 3-leaflet valve. There is mild aortic regurgitation noted. There is an echodense lesion noted attached to the right coronary cusp on the ventricular surface suggestive of endocarditis. Mitral valve is anatomically normal. There is mild central mitral regurgitation noted. There is mild tricuspid regurgitation noted. There is no vegetation noted on either mitral or tricuspid valve. 2. Left ventricle has normal size and systolic function. There is biatrial enlargement. Right ventricle appears mildly enlarged. There is no evidence of [id number] shunt by color-flow Doppler or [id number] shunt by agitated saline contrast study. Aortic root measures within normal limits. CONCLUSION: There is a vegetation noted involving the right coronary cusp attached to the ventricular surface. MMODL / IJN: [id number] /
== END 2025-01-29 18:57 | DRG 871 ==
LOC: EC 08:32 → 3SCARD 11:49 → 2SICU 01-20 16:30 → 3SCARD 01-21 13:37 → 5NMEDONC 01-28 14:22
PROVIDERS: ADMIT Hospitalist; ATTEND Hospitalist
PROC: 4A10X4Z Monitoring of Central Nervous Electrical Activity, External Approach (ICD-10-PCS; 2025-01-19)
PROC: B246ZZ4 Ultrasonography of Right and Left Heart, Transesophageal (ICD-10-PCS; principal; 2025-01-26)
PROC: 02HV33Z Insertion of Infusion Device into Superior Vena Cava, Percutaneous Approach (ICD-10-PCS; 2025-01-29)
PROC: B5181ZA Fluoroscopy of Superior Vena Cava using Low Osmolar Contrast, Guidance (ICD-10-PCS; 2025-01-29)
PROC: B548ZZA Ultrasonography of Superior Vena Cava, Guidance (ICD-10-PCS; 2025-01-29)
DX: A41.52 Sepsis due to Pseudomonas (principal); G93.41 Metabolic encephalopathy; I33.0 Acute and subacute infective endocarditis; R65.21 Severe sepsis with septic shock; I76 Septic arterial embolism; E87.20 Acidosis, unspecified; I48.19 Other persistent atrial fibrillation; D64.9 Anemia, unspecified; E11.9 Type 2 diabetes mellitus without complications; E86.0 Dehydration; I71.40 Abdominal aortic aneurysm, without rupture, unspecified; I10 Essential (primary) hypertension; Z68.36 Body mass index [BMI] 36.0-36.9, adult; E03.9 Hypothyroidism, unspecified; Z79.4 Long term (current) use of insulin; R62.7 Adult failure to thrive; Z11.52 Encounter for screening for COVID-19; E78.5 Hyperlipidemia, unspecified; E83.42 Hypomagnesemia; Z95.5 Presence of coronary angioplasty implant and graft; I25.10 Atherosclerotic heart disease of native coronary artery without angina pectoris; R55 Syncope and collapse; M48.061 Spinal stenosis, lumbar region without neurogenic claudication; Z79.01 Long term (current) use of anticoagulants; E66.9 Obesity, unspecified; E87.70 Fluid overload, unspecified; G89.29 Other chronic pain; H55.00 Unspecified nystagmus; I49.3 Ventricular premature depolarization; K57.30 Diverticulosis of large intestine without perforation or abscess without bleeding; K80.20 Calculus of gallbladder without cholecystitis without obstruction; M85.80 Other specified disorders of bone density and structure, unspecified site; N47.2 Paraphimosis; Z79.890 Hormone replacement therapy; N48.89 Other specified disorders of penis; Z79.82 Long term (current) use of aspirin; Z79.899 Other long term (current) drug therapy; W22.8XXA Striking against or struck by other objects, initial encounter; Z86.0100 Personal history of colon polyps, unspecified; Z87.440 Personal history of urinary (tract) infections; Z87.442 Personal history of urinary calculi; Z87.891 Personal history of nicotine dependence; Z91.81 History of falling; Z96.653 Presence of artificial knee joint, bilateral; M48.07 Spinal stenosis, lumbosacral region; M51.379 Other intervertebral disc degeneration, lumbosacral region without mention of lumbar back pain or lower extremity pain
CPT/HCPCS: 36415; 36573; 36600; 71045; 72131; 72158; 80048; 80053; 81001; 81003; 82272; 82550; 82805; 83605; 83735; 84145; 84484; 85025; 85027; 85610; 85652; 85730; 86140; 87040; 87077; 87186; 87636; 93005; 93308; 93312; 93320; 93325; 93922; 95816; 96361; 96365; 96375; 99285